=== PATIENT | male | born 1950 | race Caucasian/White ===

== ENCOUNTER 2017-10-03 08:44 | Outpatient (CLI) | payer MEDICARE, SELFPAY | END 2017-10-03 08:45 | PROVIDERS: PCP Family Medicine; Visit Provider Orthopaedic Surgery | DX: M75.121 Complete rotator cuff tear or rupture of right shoulder, not specified as traumatic (principal); Z01.818 Encounter for other preprocedural examination ==

== ENCOUNTER 2017-10-29 09:28 | Outpatient (CLI) | payer MEDICARE, SELFPAY ==
[2017-10-29 10:24] LABS: D-Dimer 1394 ng/mlFEU (<500)
== END 2017-10-29 09:48 ==
PROVIDERS: PCP Family Medicine; Visit Provider Family Medicine
DX: R60.0 Localized edema (principal)
CPT/HCPCS: 36415; 85379

== ENCOUNTER 2017-10-29 11:00 | Outpatient (CLI) | payer MEDICARE, SELFPAY ==
--- NOTE | 2017-10-29 11:09 | DI.US_ITS ---
SYMPTOM/DIAGNOSIS: LEG EDEMA, R60.0 RIGHT LOWER EXTREMITY ULTRASOUND: There is mild edema in the subcutaneous tissues of the right calf. Active right groin lymph node is noted which could indicate cellulitis. There is no evidence of deep venous thrombosis or superficial thrombosis. No Rodriguez's cyst or hematoma is seen. IMPRESSION: Calf edema. No evidence of DVT.
== END 2017-10-29 11:20 ==
PROVIDERS: PCP Family Medicine; Visit Provider Family Medicine
DX: R60.0 Localized edema (principal); R59.0 Localized enlarged lymph nodes
CPT/HCPCS: 36415; 85379; 93971

== ENCOUNTER 2017-11-07 10:16 | Outpatient (REF) | payer MEDICARE, SELFPAY | END 2017-11-07 10:36 | LOC: LBN 10:16 | PROVIDERS: PCP Family Medicine; Visit Provider Podiatrist | DX: L97.519 Non-pressure chronic ulcer of other part of right foot with unspecified severity (principal); Z47.89 Encounter for other orthopedic aftercare; M75.122 Complete rotator cuff tear or rupture of left shoulder, not specified as traumatic; M19.012 Primary osteoarthritis, left shoulder; M65.812 Other synovitis and tenosynovitis, left shoulder; M75.42 Impingement syndrome of left shoulder; E10.9 Type 1 diabetes mellitus without complications | CPT/HCPCS: 87077; 87070; 87205 ==

== ENCOUNTER 2017-11-10 17:35 | Inpatient (IN) | payer MEDICARE, SELFPAY ==
[2017-11-10 17:55] VITALS: BP 120/65; PULSE 84; RESP 16; TEMP 36.5; O2SAT 96
--- NOTE | 2017-11-10 18:18 | W.ED.GENAD ---
Discharge Plan Disposition Patient Disposition: [facility] INPATIENT Condition: Good Discharge Details Chief Complaint: Cellulitis Clinical Impression: Diabetic foot infection Primary Care Provider: Lilli Packer V ED Provider: Chu Paris Home Meds and New Rx's Prescriptions: No Action metformin [Glucophage] 850 MG tablet 850 mg PO DAILY RF: 0 glipizide 5 MG tablet 10 mg PO DAILY RF: 0 gabapentin [Neurontin] 300 MG capsule 900 mg PO BID RF: 0 docusate sodium [Colace] 100 MG capsule 100 mg PO BID RF: 0 cyanocobalamin (vitamin B-12) 1,000 MCG/ML solution 1,000 mcg IJ DIRECTED RF: 0 ibuprofen 200 mg Capsule 2 tab PO PRN PRNRF: 0 acetaminophen [Tylenol Extra Strength] 500 mg Tablet 2 tab PO RF: 0 aspirin [Aspirin Low-Strength] 81 MG tablet,chewable 81 mg PO DAILY RF: 0 insulin detemir U-100 [Levemir U-100 Insulin] 100 UNIT/ML solution 50 unit SQ HS RF: 0 oxycodone 15 MG tablet 1 tab PO PRN PRNRF: 0 insulin regular human [Humulin R Regular U-100 Insuln] 100 UNIT/1 ML solution Sub-Q TID RF: 0 albuterol sulfate [ProAir HFA] 200 PUFF/INH HFA aerosol inhaler 2 puff Inhalation Q4H PRN PRNQty: 1 RF: 0 Medical Decision Making 66-year-old male presents with a right fourth toe progressive infection over 3-4 days time. Referred in by podiatry. He arrives afebrile,, interactive. Patient had IV access established, blood cultures obtained, referred for x-ray and vancomcin initiated. He will require admission. As he is referred in by podiatry, will not consult them tonight as they are anticipating admission to the hospitalist service. Lab Data Lab results reviewed: Yes I reviewed the patient's lab results. HPI General Mode of arrival: ambulatory. Date/Time Provider Initiated Documentation: 11/10/17 18:08. Limitations to Documentation: no limitations. Information obtained by: family. History of Present Illness 66 year old M presents to the emergency department with the chief complaint of Diabetic foot infection, described as moderate, and is localized to the right and lower extremity. Patient started experiencing this day(s) and it has been constant. No relieving factors improve symptom(s), No exacerbating factors reported . Patient notes no other symptoms.. HPI Narrative: Infected foot: 66-year-old male presents on referral from podiatry. He states that he has had 3-4 days of progressive swelling, erythema, foul-smelling discharge from his right fourth toe which is 1 of his 3 remaining toes. He was seen in the office on by Dr. guzman and after discussing the progression today he was referred in. He has not had a fever, has not vomited. Denies any traumatic injury to the foot Related Data Home Medications Medication Instructions Recorded Confirmed metformin [Glucophage] 850 mg PO DAILY 09/19/12 11/10/17 glipizide 10 mg PO DAILY 09/22/12 11/10/17 gabapentin [Neurontin] 900 mg PO BID 12/05/14 11/10/17 docusate sodium [Colace] 100 mg PO BID cap 06/18/16 11/10/17 aspirin [Aspirin Low-Strength] 81 mg PO DAILY 12/25/16 11/10/17 insulin detemir U-100 [Levemir 50 unit SQ HS 12/25/16 11/10/17 U-100 Insulin] insulin regular human [Humulin R unit SUB-Q TID 03/29/17 07/13/17 Regular U-100 Insuln] oxycodone 1 tab PO PRN PRN 03/29/17 11/10/17 albuterol sulfate [ProAir HFA] 2 puff INHALATION Q4H PRN PRN #1 07/13/17 11/10/17 inh cyanocobalamin (vitamin B-12) 1,000 mcg IJ DIRECTED 10/03/17 11/10/17 acetaminophen [Tylenol Extra 2 tab PO 11/10/17 Strength] ibuprofen 2 tab PO PRN PRN 11/10/17 11/10/17 Previous Rx's Medication Instructions Recorded docusate sodium [Colace] 100 mg PO BID cap 06/18/16 albuterol sulfate [ProAir HFA] 2 puff INHALATION Q4H PRN PRN #1 07/13/17 inh Allergies Allergy/AdvReac Type Severity Reaction Status Date / Time Penicillins Allergy Severe Anaphylaxsi Unverified 11/10/17 18:00 s simvastatin Allergy Severe faints Unverified 11/10/17 18:00 Sulfa (Sulfonamide Allergy Severe Hives Unverified 11/10/17 18:00 Antibiotics) sulfamethoxazole Allergy Severe Hives Unverified 11/10/17 18:00 [From Bactrim] trimethoprim [From Bactrim] Allergy Severe Hives Unverified 11/10/17 18:00 levofloxacin AdvReac Intermediate Nausea Unverified 11/10/17 18:00 General Stated Complaint: Cellulitis VIKRAM: 3 Review of Systems Review of Systems 8 systems reviewed and otherwise - [facility] Medical History Diabetes mellitus Hyperlipidemia Sleep apnea Social History Smoking/Tobacco Use Status: Current-Occasional Surgical History Amputation Appendectomy (06/11/16) Repair of inguinal hernia Rotator Cuff Repair Exam Narrative Exam Narrative: GEN: awake, alert, oriented 3. Pleasant, well groomed, interactive. HEAD: Normocephalic, atraumatic ENT: Mucous membranes moist, oropharynx unremarkable, External ear exam unremarkable EYES: PERRL, EOMI NECK: Full ROM, no PEDRO, no menigismus CHEST/RESP: Nontender, clear to auscultation bilateral, no wheeze/rhonchi/rales CARDIOVASCULAR: RRR, no murmur, rub hernandez. 2+ Rad pulse bilateral ABDOMEN: Soft, nontender, no mass. +Bowel sounds EXT: Full ROM, left below the knee amputation, right foot with partial toe amputations and 3 remaining toes. The toe and fourth position is erythematous and swollen with tenderness and warmth, there is ulceration to the distal and Neuro: Grossly normal neurologic exam, conversant, interactive. Psych: Speech fluent, thoughts congruent, affect normal Course Vital Signs Temperature 36.5 C 11/10/17 17:55 Pulse 84 11/10/17 17:55 Respiratory Rate 16 11/10/17 17:55 Blood Pressure 120/65 11/10/17 17:55 Pulse Oximetry 96 11/10/17 17:55 Temperature 36.5 C 11/10/17 17:55 Temperature Source Temporal Artery Scan 11/10/17 17:55 Pulse 84 11/10/17 17:55 Respiratory Rate 16 11/10/17 17:55 Respiratory Effort 11/10/17 17:58 Blood Pressure 120/65 09/23/18 17:55 Pulse Oximetry 96 11/10/17 17:55 Oxygen Delivery Method Room Air 11/10/17 17:55 Oxygen Flow Rate 0 11/10/17 17:55
--- NOTE | 2017-11-10 18:22 | ED.GENADUL_ITS ---
Discharge Plan Disposition Patient Disposition: [facility] INPATIENT Condition: Good Discharge Details Chief Complaint: Cellulitis Clinical Impression: Diabetic foot infection Primary Care Provider: Lilli Packer V ED Provider: Chu Paris Home Meds and New Rx's Prescriptions: No Action metformin [Glucophage] 850 MG tablet 850 mg PO DAILY RF: 0 glipizide 5 MG tablet 10 mg PO DAILY RF: 0 gabapentin [Neurontin] 300 MG capsule 900 mg PO BID RF: 0 docusate sodium [Colace] 100 MG capsule 100 mg PO BID RF: 0 cyanocobalamin (vitamin B-12) 1,000 MCG/ML solution 1,000 mcg IJ DIRECTED RF: 0 ibuprofen 200 mg Capsule 2 tab PO PRN PRNRF: 0 acetaminophen [Tylenol Extra Strength] 500 mg Tablet 2 tab PO RF: 0 aspirin [Aspirin Low-Strength] 81 MG tablet,chewable 81 mg PO DAILY RF: 0 insulin detemir U-100 [Levemir U-100 Insulin] 100 UNIT/ML solution 50 unit SQ HS RF: 0 oxycodone 15 MG tablet 1 tab PO PRN PRNRF: 0 insulin regular human [Humulin R Regular U-100 Insuln] 100 UNIT/1 ML solution Sub-Q TID RF: 0 albuterol sulfate [ProAir HFA] 200 PUFF/INH HFA aerosol inhaler 2 puff Inhalation Q4H PRN PRNQty: 1 RF: 0 Medical Decision Making 66-year-old male presents with a right fourth toe progressive infection over 3- 4 days time. Referred in by podiatry. He arrives afebrile,, interactive. Patient had IV access established, blood cultures obtained, referred for x-ray and vancomcin initiated. He will require admission. As he is referred in by podiatry, will not consult them tonight as they are anticipating admission to the hospitalist service. Lab Data Lab results reviewed: Yes I reviewed the patient's lab results. HPI General Mode of arrival: ambulatory . Date/Time Provider Initiated Documentation: 11/10/17 18:08 . Limitations to Documentation: no limitations . Information obtained by: family . History of Present Illness 66 year old M presents to the emergency department with the chief complaint of Diabetic foot infection, described as moderate, and is localized to the right and lower extremity. Patient started experiencing this day(s) and it has been constant. No relieving factors improve symptom(s), No exacerbating factors reported . Patient notes no other symptoms.. HPI Narrative: Infected foot: 66-year-old male presents on referral from podiatry. He states that he has had 3-4 days of progressive swelling, erythema, foul-smelling discharge from his right fourth toe which is 1 of his 3 remaining toes. He was seen in the office on by Dr. guzman and after discussing the progression today he was referred in. He has not had a fever, has not vomited. Denies any traumatic injury to the foot Related Data Home Medications Medication Instructions Recorded Confirmed metformin [Glucophage] 850 mg PO DAILY 09/19/12 11/10/17 glipizide 10 mg PO DAILY 09/22/12 11/10/17 gabapentin [Neurontin] 900 mg PO BID 12/05/14 11/10/17 docusate sodium [Colace] 100 mg PO BID cap 06/18/16 11/10/17 aspirin [Aspirin Low-Strength] 81 mg PO DAILY 12/25/16 11/10/17 insulin detemir U-100 [Levemir 50 unit SQ HS 12/25/16 11/10/17 U-100 Insulin] insulin regular human [Humulin R unit SUB-Q TID 03/29/17 07/13/17 Regular U-100 Insuln] oxycodone 1 tab PO PRN PRN 03/29/17 11/10/17 albuterol sulfate [ProAir HFA] 2 puff INHALATION Q4H PRN PRN #1 07/13/17 inh cyanocobalamin (vitamin B-12) 1,000 mcg IJ DIRECTED 10/03/17 11/10/17 acetaminophen [Tylenol Extra 2 tab PO 11/10/17 Strength] ibuprofen 2 tab PO PRN PRN 11/10/17 11/10/17 Previous Rx's Medication Instructions Recorded docusate sodium [Colace] 100 mg PO BID cap 06/18/16 albuterol sulfate [ProAir HFA] 2 puff INHALATION Q4H PRN PRN #1 07/13/17 inh Allergies Allergy/AdvReac Type Severity Reaction Status Date / Time Penicillins Allergy Severe Anaphylaxsi Unverified 11/10/17 18:00 s simvastatin Allergy Severe faints Unverified 11/10/17 18:00 Sulfa (Sulfonamide Allergy Severe Hives Unverified 11/10/17 18:00 Antibiotics) sulfamethoxazole Allergy Severe Hives Unverified 11/10/17 18:00 [From Bactrim] trimethoprim [From Bactrim] Allergy Severe Hives Unverified 11/10/17 18:00 levofloxacin AdvReac Intermediate Nausea Unverified 11/10/17 18:00 General Stated Complaint: Cellulitis VIKRAM: 3 Review of Systems Review of Systems 8 systems reviewed and otherwise - [facility] Medical History Diabetes mellitus Hyperlipidemia Sleep apnea Social History Smoking/Tobacco Use Status: Current-Occasional Surgical History Amputation Appendectomy (06/11/16) Repair of inguinal hernia Rotator Cuff Repair Exam Narrative Exam Narrative: GEN: awake, alert, oriented 3. Pleasant, well groomed, interactive. HEAD: Normocephalic, atraumatic ENT: Mucous membranes moist, oropharynx unremarkable, External ear exam unremarkable EYES: PERRL, EOMI NECK: Full ROM, no PEDRO, no menigismus CHEST/RESP: Nontender, clear to auscultation bilateral, no wheeze/rhonchi/rales CARDIOVASCULAR: RRR, no murmur, rub hernandez. 2+ Rad pulse bilateral ABDOMEN: Soft, nontender, no mass. +Bowel sounds EXT: Full ROM, left below the knee amputation, right foot with partial toe amputations and 3 remaining toes. The toe and fourth position is erythematous and swollen with tenderness and warmth, there is ulceration to the distal and Neuro: Grossly normal neurologic exam, conversant, interactive. Psych: Speech fluent, thoughts congruent, affect normal Course Vital Signs Temperature 36.5 C 11/10/17 17:55 Pulse 84 11/10/17 17:55 Respiratory Rate 16 11/10/17 17:55 Blood Pressure 120/65 11/10/17 17:55 Pulse Oximetry 96 11/10/17 17:55 Temperature 36.5 C 11/10/17 17:55 Temperature Source Temporal Artery Scan 11/10/17 17:55 Pulse 84 11/10/17 17:55 Respiratory Rate 16 11/10/17 17:55 Respiratory Effort 11/10/17 17:58 Blood Pressure 120/65 09/23/18 17:55 Pulse Oximetry 96 11/10/17 17:55 Oxygen Delivery Method Room Air 11/10/17 17:55 Oxygen Flow Rate 0 11/10/17 17:55
--- NOTE | 2017-11-10 18:22 | DI.RAD_ITS ---
SYMPTOM/DIAGNOSIS: RT 4TH TOE INFECTION RIGHT FOOT: Three views. Comparison is made with 11/01/16. There is again seen an amputation of the great toe. Since the prior examination, there has been an amputation of the right third toe. There are also post surgical changes involving the second metatarsal phalangeal joint. No acute fracture or dislocation is seen. No erosive or destructive changes are seen in the bones to suggest acute osteomyelitis. There is generalized soft tissue swelling about the forefoot. IMPRESSION: 1. No definite radiographic findings to suggest osteomyelitis. Follow up as clinically appropriate. 2. Post surgical changes of the right foot. 3. Generalized soft tissue swelling of the right foot.
[2017-11-10 19:08] LABS: Abs Immature Grans 0.03 k/cumm (0.0-0.09); Absolute Basophil Count 0.06 k/cumm (0.0-0.2); Absolute Eosinophil Count 0.47 k/cumm (0.0-0.7); Absolute Lymphocyte Count 2.71 k/cumm (1.2-3.4); Absolute Monocyte Count 0.57 k/cumm (0.11-0.7); Absolute Neutrophil Count 6.41 k/cumm (1.2-6.7); Basophils % 0.6; Eosinophils % 4.6; HCT 44.1 % (40.0-50.0); HGB 15.4 g/dL (13.5-17.5); Immature Grans % 0.3; Lymphocytes % 26.4; Mean Corp. HGB Concentration 34.9 g/dL (32.0-36.0); Mean Corpuscular Volume 88.9 fL (80-95); Mean Platelet Volume 10.7 fL (8.0-11.0); Monocytes % 5.6; Neutrophils % 62.5; Platelet Count 183 x1000/uL (130-400); RBC 4.96 m/cumm (4.50-6.00); RBC Distribution Width 13.4 % (11.8-14.1); White Blood Cell Count 10.25 k/cumm (4.4-10.8)
[2017-11-10 19:23] LABS: ALT 27 U/L (12-78); AST 16 U/L (15-37); Albumin 3.6 g/dL (3.4-5.0); Alkaline Phosphatase 84 U/L (46-116); Anion Gap 10.4 mmol/L (3-11); BUN 15 mg/dL (7-18); Bilirubin, Total 0.2 mg/dL (0.2-1.0); CO2 25.6 mmol/L (21.0-32.0); Calcium 8.8 mg/dL (8.5-10.1); Chloride 101 mmol/L (98-107); Glucose 264 mg/dL (70-100); Potassium 4.7 mmol/L (3.5-5.1); Sodium 137 mmol/L (136-145); Total Protein 7.5 g/dL (6.4-8.2)
[2017-11-10 19:28] LABS: CREATININE 1.07 mg/dL (0.70-1.30)
[2017-11-10] MEDS: VANCOMYCIN 1,000 MG in Normal Saline 250 ML 166.6666 MG IVPB (19:56)
[2017-11-10 20:28] VITALS: BP 141/68; PULSE 71; RESP 18; TEMP 36.7; O2SAT 98
--- NOTE | 2017-11-10 20:43 | DI.VRAD_ITS ---
EXAM: XR Right Foot Complete, 3 or more Views EXAM DATE/TIME: 11/10/2017 6:23 PM CLINICAL HISTORY: 66 years old, male; Signs and symptoms; Other: RT 4th toe infection; Prior surgery; Patient HX: R 4th toe infection TECHNIQUE: XR Right foot 3 or more views. COMPARISON: CR RIGHT FOOT COMPLETE 11/01/2016 7:21 PM FINDINGS/IMPRESSION: Bones/joints: Status post amputation of the first and third digits with postsurgical changes of the second metatarsophalangeal joint. No erosive changes of the bones are seen on this exam. There is a large calcaneal spur. No acute fracture or subluxation. Soft tissues: Marked soft tissue swelling is noted about the forefoot. Dictated and Authenticated by: Chris Narayanan MD. Ordering:JOSE WHEATLEY MD
--- NOTE | 2017-11-10 23:26 | HPE_ITS ---
Date of service: 11/10/17 Time of Service: 23:25 Assessment and Plan (1) Cellulitis of right toe: Start date: 11/10/17 Current visit: Yes Status: Acute There is been a progressive problem over the last several days with podiatry evaluating the patient during the week. It worsened today on the patient was out fishing and because of progression he was advised to come to the ED for evaluation and treatment of his cellulitis with IV antibiotics and have podiatry see him for probable amputation of right fourth toe which is not healing as an outpatient. Dr. Aguilar has been consulted to see the patient. He was started on IV vancomycin loading dose and maintenance dose. (2) Diabetes: Current visit: No Status: Chronic Patient states his hemoglobin A1c is above 7 should be better with his complication with diabetes including neuropathy and foot drop as well as amputations with recurrent infection. He states that his circulation has been evaluated is intact and not contributing to his recurrent ulcers. During this operation he will have glucometers with short acting insulin coverage continuing in his Levemir at night. (3) Peripheral neuropathy due to disorder of metabolism: Current visit: Yes Status: Chronic This is contributing to his current ulcerations expectations with trauma to his right foot. He also had increased peripheral edema recently which may have contributed to his cellulitis and ulcer of the tip of his toe. Continue gabapentin hospital stay, long-term better control of his diabetes would help. History of Present Illness Chief Complaint: Right fourth toe cellulitis with gangrene and uncontrolled diabetes Narrative: This is a 66-year-old gentleman who was sent in by his jailer/training officer for treatment of cellulitis over his toe which is worsening for possible amputation of his right fourth toe with previous multiple amputations for similar reasons. He has only 3 toes left on his right foot which has been swelling recently though the edema has decreased with elevating his foot. He has a previous amputation with BKA on the left. He is a diabetic poorly controlled. He was out fishing today and noted that his right fourth toe was changing colors along with being with the tip and this had progressed with home prompted to come to the hospital for IV therapy pending probable amputation of the fourth toe. Overall he has been doing well at home with his disabilities and has prostheses for his left BKA but also for his right foot drop. He does have decreased sensation over his lower extremities with his diabetes. Review of systems stable weight, increased edema of his right leg recently actually is down with elevation as stated, no other focal neurological complaints, no cardiovascular or respiratory complaints and no GI or complaints. Review of Systems Review of Systems As per HPI otherwise negative COUNT INCLUDES [facility] Family History Mother CAD (coronary artery disease) Medical History Diabetes mellitus Hyperlipidemia Sleep apnea Social History Smoking/Tobacco Use Status: Current-Occasional Surgical History Amputation Appendectomy (06/11/16) Repair of inguinal hernia Rotator Cuff Repair Meds Home Medications Medication Instructions Recorded Confirmed Type metformin [Glucophage] 850 mg PO DAILY 09/19/12 11/10/17 History glipizide 10 mg PO DAILY 09/22/12 11/10/17 History gabapentin [Neurontin] 900 mg PO BID 12/05/14 11/10/17 History docusate sodium [Colace] 100 mg PO BID cap 06/18/16 11/10/17 Rx aspirin [Aspirin Low-Strength] 81 mg PO DAILY 12/25/16 11/10/17 History insulin detemir U-100 [Levemir 50 unit SQ HS 12/25/16 11/10/17 History U-100 Insulin] insulin regular human [Humulin R unit SUB-Q TID 03/29/17 07/13/17 History Regular U-100 Insuln] oxycodone 2 tab PO PRN PRN 03/29/17 11/10/17 History albuterol sulfate [ProAir HFA] 2 puff INHALATION Q4H PRN PRN #1 07/13/17 Rx inh cyanocobalamin (vitamin B-12) 1,000 mcg IJ DIRECTED 10/03/17 11/10/17 History acetaminophen [Tylenol Extra 2 tab PO 11/10/17 History Strength] ibuprofen 2 tab PO PRN PRN 11/10/17 11/10/17 History melatonin 9 mg PO HS PRN 11/10/17 11/10/17 History Allergies Allergy/AdvReac Type Severity Reaction Status Date / Time Penicillins Allergy Severe Anaphylaxsi Unverified 11/10/17 18:00 s simvastatin Allergy Severe faints Unverified 11/10/17 18:00 Sulfa (Sulfonamide Allergy Severe Hives Unverified 11/10/17 18:00 Antibiotics) sulfamethoxazole Allergy Severe Hives Unverified 11/10/17 18:00 [From Bactrim] trimethoprim [From Bactrim] Allergy Severe Hives Unverified 11/10/17 18:00 levofloxacin AdvReac Intermediate Nausea Unverified 11/10/17 18:00 Exam Narrative Exam Narrative: General: Patient is muscular and moderately obese, and in no acute distress and alert and oriented ?3. HEENT: Normocephalic with eyes revealing pupils equal nitrite symmetrically and extraocular movements intact the sclera anicteric. Oropharynx clear with pink moist mucosa and good dentition. External ears are normal. Neck: Supple without JVD and no auscultated carotid bruits. Lungs: Clear to auscultation with bronchovesicular breath sounds diffusely, no rales or rhonchi and no increased inspiratory to expiratory phase ratio. Heart: Regular rate and rhythm with no appreciated murmurs or gallops. Back: Decreased range of motion with loss of lordotic curve of lumbar spine and tenderness over lumbar spine. No CVA tenderness. Abdomen: Obese and slightly protuberant, soft and nontender to palpation with no palpable hepatosplenomegaly. Bowel sounds positive in all quadrants. Genitalia and rectal exam: Deferred. Extremities: Left BKA with stump without swelling or lesions and good capillary refill, right leg with 3+ nonpitting edema over the leg and foot with many amputations of the toes of the right foot with only 3 toes remaining and the fourth toe having additional swelling and erythema with slight ecchymotic appearance and gangrenous ulcer at the tip of the toe. Neuro: Decreased sensation over lower extremities, no focal motor deficits with cranial nerves II through XII grossly intact. Skin: Skin changes of the right foot with fourth toe otherwise well tanned over sun exposed areas and no rashes. Good turgor. Psych: Normal memory and thought processes with normal affect. Patient is jovial. Results Labs : 11/10/17 19:00 11/10/17 19:00 Laboratory Results - last 24 hr 11/10/17 11/10/17 19:00 19:00 WBC 10.25 RBC 4.96 Hgb 15.4 Hct 44.1 MCV 88.9 MCH 31.0 MCHC 34.9 RDW 13.4 Plt Count 183 MPV 10.7 Immature Gran % 0.3 Neutrophils % 62.5 Lymphocytes % 26.4 Monocytes % 5.6 Eosinophils % 4.6 Basophils % 0.6 Absolute Neutrophils 6.41 Absolute Lymphocytes 2.71 Absolute Monocytes 0.57 Absolute Eosinophils 0.47 Absolute Basophils 0.06 Sodium 137 Potassium 4.7 Chloride 101 Carbon Dioxide 25.6 Anion Gap 10.4 BUN 15 Creatinine 1.07 Estimated GFR/1.73 m2 >= 60.00 Glucose 264 H Calcium 8.8 Total Bilirubin 0.2 AST 16 ALT 27 Alkaline Phosphatase 84 Total Protein 7.5 Albumin 3.6
[2017-11-10 23:34] VITALS: BP 122/67; PULSE 75; RESP 19; TEMP 36.8; O2SAT 98
[2017-11-11] MEDS: Melatonin 3 MG TAB 9 MG PO ×2 (00:11→21:03)
[2017-11-11] MEDS: oxyCODONE 15 MG TAB PO ×5 (00:11→21:00)
[2017-11-11] MEDS: Heparin 5,000 UNITS/ML VIAL 5000 UNITS SC ×3 (00:11→15:48)
[2017-11-11] MEDS: VANCOMYCIN 1,500 MG in Normal Saline 250 ML 166.6666 MG IVPB (01:01)
[2017-11-11 07:25] VITALS: O2SAT 97
[2017-11-11 07:39] VITALS: BP 102/79; PULSE 70; RESP 19; TEMP 36.8; O2SAT 97
--- NOTE | 2017-11-11 07:43 | PDOC.CMIN ---
- If Service Date Differs Date of service: 11/11/17 Time of Service: 07:44 Care Management Initial Assess REASON FOR HOSPITALIZATION:: Diabetic Foot infection (R 4th toe). PAST MEDICAL HISTORY/PAST SURGICAL HISTORY:: Diabetes, hyperlipidemia, sleep apnea, peripheral neuropathy, osteoarthritis, synovitis, tenosynovitis (L shoulder). Surgical hx: L BKA, appendectomy, inguinal hernia repair, rotator cuff repair. PREVIOUS FUNCTIONAL STATUS/SOCIAL/FAMILY SUPPORTS:: Suhail resides in his own home in [place] with his , Sol. They have no children. Suhail has a long history with diabetes and osteomyelitis and has had multiple toe ampuations in the past. Pt has a L BKA. Suhail reports that he is independent with his ADLs and has a prosthetic for his left leg. CURRENT FUNCTIONAL STATUS:: Suhail is lying in bed when CM visits this morning. He is engaged in conversation, makes good eye contact and is talkative. Suhail is in good spirits and reports that while his shoulder hurts (he had rotator cuff surgery in September) he is otherwise feeling fine and quite likes it here. He is scheduled at this time to go to the OR with Dr. Casey on 11/13 for ampuation of his right fourth toe. Suhail's , Sol, is scheduled for surgery at [facility] on 11/15 and he is worried about transportation when he is ready for discharge. Depending on his discharge date, Sol will be unavailable for transport. CM will look into transportation options and report back. Suhail mentioned that he was uncomfortable in the bed. CM advised that a recliner might be available and pt agreed that would be preferable to keep his shoulder stationary and his foot elevated. OLENA Curtis and SHARRI james. ADVANCE DIRECTIVES:: On file at [facility]. Has patient been provided with information about the portal?: Yes Did the patient sign up for the portal?: No CODE STATUS:: DNR/DNI INSURANCE COVERAGE / FINANCIAL ISSUES:: Medicare. CURRENT HOME/COMMUNITY SERVICES/EQUIPMENT:: No current home or community services. PRIMARY CARE PHYSICIAN:: Lilli Packer. POTENTIAL DISCHARGE NEEDS:: Follow up appointments with PCP and Dr. Casey. PATIENT/FAMILY EDUCATION NEEDS:: Discharge education, any limitations and follow up plan of care. Ask Me Three discussion. ANTICIPATED BARRIERS TO DISCHARGE:: No anticipated barriers to discharge other than transportation needs. CM will assist. TRANSPORTATION:: Suhail is unsure how he will transport at discharge and has asked about options. PLAN:: Suhail will discharge home when medically ready per MD. Anticipate pt will discharge with no services and follow up with his PCP and Dr. Casey. CM will continue to provide support to patient and care team regarding discharge planning.
--- NOTE | 2017-11-11 07:49 | INITIAL_ITS ---
- If Service Date Differs Date of service: 11/11/17 Time of Service: 07:44 Care Management Initial Assess REASON FOR HOSPITALIZATION:: Diabetic Foot infection (R 4th toe). PAST MEDICAL HISTORY/PAST SURGICAL HISTORY:: Diabetes, hyperlipidemia, sleep apnea, peripheral neuropathy, osteoarthritis, synovitis, tenosynovitis (L shoulder). Surgical hx: L BKA, appendectomy, inguinal hernia repair, rotator cuff repair. PREVIOUS FUNCTIONAL STATUS/SOCIAL/FAMILY SUPPORTS:: Suhail resides in his own home in [place] with his , Sol. They have no children. Suhail has a long history with diabetes and osteomyelitis and has had multiple toe ampuations in the past. Pt has a L BKA. Suhail reports that he is independent with his ADLs and has a prosthetic for his left leg. CURRENT FUNCTIONAL STATUS:: Suhail is lying in bed when CM visits this morning. He is engaged in conversation, makes good eye contact and is talkative. Suhail is in good spirits and reports that while his shoulder hurts (he had rotator cuff surgery in September) he is otherwise feeling fine and quite likes it here. He is scheduled at this time to go to the OR with Dr. Casey on 11/13 for ampuation of his right fourth toe. Suhail's , Sol, is scheduled for surgery at [facility] on 11/15 and he is worried about transportation when he is ready for discharge. Depending on his discharge date, Sol will be unavailable for transport. CM will look into transportation options and report back. Suhail mentioned that he was uncomfortable in the bed. CM advised that a recliner might be available and pt agreed that would be preferable to keep his shoulder stationary and his foot elevated. OLENA Curtis and SHARRI james. ADVANCE DIRECTIVES:: On file at [facility]. Has patient been provided with information about the portal?: Yes Did the patient sign up for the portal?: No CODE STATUS:: DNR/DNI INSURANCE COVERAGE / FINANCIAL ISSUES:: Medicare. CURRENT HOME/COMMUNITY SERVICES/EQUIPMENT:: No current home or community services. PRIMARY CARE PHYSICIAN:: Lilli Packer. POTENTIAL DISCHARGE NEEDS:: Follow up appointments with PCP and Dr. Casey. PATIENT/FAMILY EDUCATION NEEDS:: Discharge education, any limitations and follow up plan of care. Ask Me Three discussion. ANTICIPATED BARRIERS TO DISCHARGE:: No anticipated barriers to discharge other than transportation needs. CM will assist. TRANSPORTATION:: Suhail is unsure how he will transport at discharge and has asked about options. PLAN:: Suhail will discharge home when medically ready per MD. Anticipate pt will discharge with no services and follow up with his PCP and Dr. Casey. CM will continue to provide support to patient and care team regarding discharge planning.
[2017-11-11] MEDS: Gabapentin 300 MG CAP 900 MG PO ×2 (08:10→20:59)
[2017-11-11] MEDS: Docusate Sodium 100 MG CAP PO ×2 (08:10→21:00)
--- NOTE | 2017-11-11 08:10 | POCOE_ITS ---
Date of service: 11/11/17 Time of Service: 07:55 Assessment and Plan (1) Cellulitis of right toe: Start date: 11/11/17 Start time: 08:15 Current visit: Yes Status: Acute Assessment: Diabetic ulceration right fourth digit with cellulitis Plan: Cultures are obtained in the office on revealed group B streptococcus sensitive to penicillin. Suhail has reached an interesting point in his both dynamic as he is already had digits 1 and 3 amputated due to infections and now he is looking to have his right fourth toe surgically removed during this admission. Continues to traumatize the digits due to his neuropathy within his shoe gear as well as just bending his foot around when he is out of his shoes at home moving from his bed to bathroom etc. and as such I am recommending at this point that we remove all of the remaining toes in the next operative session Suhail is in agreement with this plan I discussed the case with Dr. Cantu, the acting hospitalist, and he will adjust the antibiotics accordingly for the active organ and he is in agreement with surgical intervention. This likely will occur on Saturday as I would like the foot to further settle down and the edema to resolve before proceeding. Thank you for the consultation. History of Present Illness Chief Complaint: ulcer with cellulitis right 4th toe Narrative: 66-year-old white male who had presented to the office last with a ulceration with localized erythema affecting the distal tip of the right fourth toe. He is neuropathic, is with foot drop to the right lower extremity and wears a AFO and extra-depth shoe. In spite of these measures he develop mechanically induced trauma to the right fourth toe which created an ulcer which has become infected. He was initially started on p.o. clindamycin 300 mg every 6 hours but I received a phone call on Saturday indicating had increased redness and swelling in his foot going up to his ankle and he was referred to the emergency department for evaluation and admission.. [facility] Family History Mother CAD (coronary artery disease) Medical History Diabetes mellitus Hyperlipidemia Sleep apnea Social History Smoking/Tobacco Use Status: Current-Occasional Surgical History Amputation Appendectomy (06/11/16) Repair of inguinal hernia Rotator Cuff Repair Exam Narrative Exam Narrative: Suhail is seen at bedside he is resting comfortably. He indicates that just being in bed overnight and receiving his antibiotics the redness and swelling has improved. He denies any fever, chills or feelings of malaise. Vascular exam: DP and PT pulses are palpable at the ankle although +1 edema is appreciated. The foot is warm to the touch his calf is soft to palpation no findings DVT. Dermatologic exam: In on the right lower extremity is grossly intact with the exception of the tip of the right fourth toe with an ulceration is appreciated which appears to probe to bone toenails on digits 2, 4 and 5 are opaque consistent with onychomycosis. Muscle skeletal muscle groups are 1 out of 4 for dorsiflexion of the right foot (chronic foot drop appreciated), digits 2 and 4 and 5 show transverse plane deviation, with the right fourth toe having a ulceration at the distal tip with localized necrosis. Sluggish capillary return to the fourth toe noted. Mechanically induced irritation noted along the plantar medial aspect of the right first metatarsal head. The skin is closed no active signs of infection. The remaining forefoot, midfoot and rear foot joints are otherwise benign. Neurologically he displays moderate diabetic peripheral neuropathy in the right foot. Results Labs : 11/10/17 19:00 11/10/17 19:00 Laboratory Results - last 24 hr 11/10/17 11/10/17 19:00 19:00 WBC 10.25 RBC 4.96 Hgb 15.4 Hct 44.1 MCV 88.9 MCH 31.0 MCHC 34.9 RDW 13.4 Plt Count 183 MPV 10.7 Immature Gran % 0.3 Neutrophils % 62.5 Lymphocytes % 26.4 Monocytes % 5.6 Eosinophils % 4.6 Basophils % 0.6 Absolute Neutrophils 6.41 Absolute Lymphocytes 2.71 Absolute Monocytes 0.57 Absolute Eosinophils 0.47 Absolute Basophils 0.06 Sodium 137 Potassium 4.7 Chloride 101 Carbon Dioxide 25.6 Anion Gap 10.4 BUN 15 Creatinine 1.07 Estimated GFR/1.73 m2 >= 60.00 Glucose 264 H Calcium 8.8 Total Bilirubin 0.2 AST 16 ALT 27 Alkaline Phosphatase 84 Total Protein 7.5 Albumin 3.6
[2017-11-11 08:12] LABS: HCT 42.5 % (40.0-50.0); HGB 14.5 g/dL (13.5-17.5); Mean Corp. HGB Concentration 34.1 g/dL (32.0-36.0); Mean Corpuscular Volume 90.8 fL (80-95); Mean Platelet Volume 10.9 fL (8.0-11.0); Platelet Count 174 x1000/uL (130-400); RBC 4.68 m/cumm (4.50-6.00); RBC Distribution Width 13.6 % (11.8-14.1); White Blood Cell Count 7.92 k/cumm (4.4-10.8)
[2017-11-11] MEDS: Normal Saline Flush 10 ML SYR IVP ×3 (08:18→21:02)
[2017-11-11 08:40] LABS: ALT 23 U/L (12-78); AST 14 U/L (15-37); Albumin 3.2 g/dL (3.4-5.0); Alkaline Phosphatase 63 U/L (46-116); Anion Gap 8.8 mmol/L (3-11); BUN 13 mg/dL (7-18); Bilirubin, Total 0.5 mg/dL (0.2-1.0); CO2 25.2 mmol/L (21.0-32.0); CREATININE 0.87 mg/dL (0.70-1.30); Calcium 8.5 mg/dL (8.5-10.1); Chloride 104 mmol/L (98-107); Glucose 133 mg/dL (70-100); Potassium 4.5 mmol/L (3.5-5.1); Sodium 138 mmol/L (136-145); Total Protein 6.9 g/dL (6.4-8.2)
[2017-11-11] MEDS: LEVOFLOXACIN 750 MG/150 ML BAG 150 MG IVPB (09:19)
--- NOTE | 2017-11-11 11:20 | PHARADMIT ---
Addendum entered by Alan Hernandez III 11/13/17 16:37: Pharmacy Note Subjective Went to OR for removal of emaining digits on right foot. Objective VS-OK Labs-WNL FSBS- 181 BG-208 Assessment On Levaquin 750mg IV q48H, Insulin adjusted (Detemir, Aspart) On Heparin SQ Plan Potiential discharge tomorrow. Original Note: Addendum entered by Smiley Gilmore 11/12/17 11:31: Pharmacy Note Subjective OR tomorrow for amputation of some toes Objective VS-okay labs okay BG-175 Assessment levofloxacin continues, no med changes Plan continue to watch VS, labs and for med changes Original Note: Admission Pharmacy Clinical Review DIABETIC FOOT INFECTION (scheduled for amputation of toes Saturday) Code Status DNR/DNI Current Weight Wgt- 121.1 kg Renally Cleared and Narrow Therapeutic Index Meds CrCl~ 97 mL/min Meds-OK QTc Value / Action Taken not available yet BP Control, Fever BP- 102/79 Tmax- 36.8C Electrolytes reviewed Na- 138 K+4.5 DVT Prophylaxis HEPARIN SQ Opiate Usage / Scheduled Bowel Regimen Ordered Yes Yes Plt/SCr for Heparin / Enoxaparin Plts- 174 SCr-0.87 INR for Warfarin na H/H stable, WBC/Bands H&H- 14.5/42.5 WBC- 7.92 Antibiotic appropriateness Levaquin Cultures and Sensitivities Blood-Pending Surgical ABX d/c within 24 hr na DM control / Insulin Dosing BG- 133 Insulin, Aspart, Detemir Heart Failure (Check EF%) (HUSSAIN's, B-Block, Diuretics) none IV to PO Switch No Home Meds Reviewed Yes Home Meds Not Ordered asa, B-12, Glipizide, Metformin, Ibuprofen Comments B-12 inj held (no schedule found at this time)
[2017-11-11 11:40] VITALS: BP 144/70; PULSE 68; RESP 18; TEMP 36.7; O2SAT 97
[2017-11-11] MEDS: Insulin Aspart 300 UNITS/3 ML PEN SC ×2 (11:45→16:48)
--- NOTE | 2017-11-11 14:09 | W.PM.PROGNOT ---
Date of service: 11/11/17 Time of Service: 14:10 Assessment and Plan (1) Cellulitis of right toe: Current visit: Yes Status: Acute Appearance of non-healing, infected, ulcer of the distal tip of right 4th digit. Failed outpatient Clindamycin. As per discussion with Podiatry, will initiate IV antibiotics, wait for localized inflammation to subside, and proceed with amputation of remaining digits on the right foot, likely on 11/13. Wound culture from 11/07 reviewed showing GBS, which the patient has a history of. Discontinue Vancomycin. Given patient's allergy to PCN will proceed with IV Levofloxacin. P (2) Diabetes: Current visit: Yes Status: Chronic Continue basal insulin and initiate on sliding scale coverage. Currently holding Glipizide and Metformin. Continue ADA diet and monitor Blood Sugars. (3) Hyperlipidemia: Current visit: Yes Status: Chronic Noted allergy to statin therapy with 'fainting' (4) Peripheral neuropathy: Current visit: Yes Status: Chronic Continue Gabapentin. Also on Oxycodone. (5) DVT prophylaxis: Current visit: No Status: Acute On heparin SC. Subjective Interval history since last seen: 66 year old man with a past history significant for DM, prior GBS Cellulitis with Osteomyelitis, and prior left sided below the knee and right lower extremity digit amputations, presents to [facility] emergency department with complaints of right foot cellulitis. Mr. Galeano has a prior history of amputation of 2 digits on his right foot due to non-healing, gangrenous digits. Hewas recently seen by Dr. Migel Aguilar for treatment of a right fourth toe infection. He was maintained on oral Clindamycin as an outpatient, but without improvement. He was sent in for initiation of IV antibitiotic therapy, and for likely amputation of his right fourth toe along with the other toes on the right foot. The plan currently is for initiation of IV antibiotics, followed by surgical debridement and amputation of the remaining digits later this week. Overnight Mr. Galeano was afebrile. No events reported. Exam Narrative Exam Narrative: General: Patient appears comfortable, sitting up in bed, AAOX3, NAD Neck: Supple CV: Regular, nontachycardic, S1S2, No rubs, murmurs, or gallops. Pulmonary: Clear to auscultation bilaterally, no crackles, wheezing, or rhonchi Abdomen: + Bowel Sounds, soft, nontender, nondistended. Obese in contour. Vascular: Right LE with a grossly edematous foot, with 1st and 3rd digits missing. Area of ulceration and necrosis noted at the distal tip of the 4th digit. No erythema, warmth, or cellulitic changes above the digit. LLE with noted BKA. Neurologic: CN II-XII grossly intact. No focal deficits. Psych: Normal mood and affect. Objective Objective Clinical Data: Abnormal lab results 11/10/17 11/11/17 11/11/17 Range/Units 19:00 07:50 07:50 Glucose 264 H 133 H D (70-100) mg/dL AST 14 L (15-37) U/L C-Reactive Protein 2.00 H (0.0-0.3) mg/dL Albumin 3.2 L (3.4-5.0) g/dL Vital Signs Temperature 36.7 C 11/11/17 11:40 Temperature Source Tympanic 11/11/17 11:40 Pulse 68 11/11/17 11:40 Pulse Rhythm Regular 11/11/17 08:10 Respiratory Rate 18 11/11/17 11:40 Respiratory Effort Non-Labored 11/11/17 08:10 Respiratory Depth Normal 11/11/17 08:10 Respiratory Pattern Normal 11/11/17 08:10 Blood Pressure 144/70 H 11/11/17 11:40 Pulse Oximetry 97 11/11/17 11:40 Oxygen Delivery Method Room Air 11/11/17 11:40 Oxygen Flow Rate 0 11/11/17 11:40 Pain Level 3 11/11/17 11:45 Intake & Output 11/10/17 11/11/17 11/11/17 23:59 11:59 23:59 Intake Total 250 / 250 1080 / 1080 250 / 250 Output Total 250 / 250 Balance 250 / 250 830 / 830 250 / 250 Weight 119.5 kg 121.1 kg Intake: IV 250 / 250 420 / 420 Oral 660 / 660 250 / 250 Output: Urine 250 / 250 Other: Urine Color Yellow Urine Appearance Clear Voiding Methods Toilet Laboratory Results WBC 7.92 k/cumm (4.4-10.8) 11/11/17 07:50 RBC 4.68 m/cumm (4.50-6.00) 11/11/17 07:50 Hgb 14.5 g/dL (13.5-17.5) 11/11/17 07:50 Hct 42.5 % (40.0-50.0) 11/11/17 07:50 MCV 90.8 fL (80-95) 11/11/17 07:50 MCH 31.0 pg (27.0-33.0) 11/11/17 07:50 MCHC 34.1 g/dL (32.0-36.0) 11/11/17 07:50 RDW 13.6 % (11.8-14.1) 11/11/17 07:50 Plt Count 174 x1000/uL (130-400) 11/11/17 07:50 MPV 10.9 fL (8.0-11.0) 11/11/17 07:50 Immature Gran % 0.3 11/10/17 19:00 Neutrophils % 62.5 11/10/17 19:00 Lymphocytes % 26.4 11/10/17 19:00 Monocytes % 5.6 11/10/17 19:00 Eosinophils % 4.6 11/10/17 19:00 Basophils % 0.6 11/10/17 19:00 Absolute Neutrophils 6.41 k/cumm (1.2-6.7) 11/10/17 19:00 Absolute Lymphocytes 2.71 k/cumm (1.2-3.4) 11/10/17 19:00 Absolute Monocytes 0.57 k/cumm (0.11-0.7) 11/10/17 19:00 Absolute Eosinophils 0.47 k/cumm (0.0-0.7) 11/10/17 19:00 Absolute Basophils 0.06 k/cumm (0.0-0.2) 11/10/17 19:00 Sodium 138 mmol/L (136-145) 11/11/17 07:50 Potassium 4.5 mmol/L (3.5-5.1) 11/11/17 07:50 Chloride 104 mmol/L (98-107) 11/11/17 07:50 Carbon Dioxide 25.2 mmol/L (21.0-32.0) 11/11/17 07:50 Anion Gap 8.8 mmol/L (3-11) 11/11/17 07:50 BUN 13 mg/dL (7-18) 11/11/17 07:50 Creatinine 0.87 mg/dL (0.70-1.30) 11/11/17 07:50 Estimated GFR/1.73 m2 >= 60.00 (mL/min/1.73m2) 11/11/17 07:50 Glucose 133 mg/dL (70-100) H D 11/11/17 07:50 Calcium 8.5 mg/dL (8.5-10.1) 11/11/17 07:50 Total Bilirubin 0.5 mg/dL (0.2-1.0) 11/11/17 07:50 AST 14 U/L (15-37) L 11/11/17 07:50 ALT 23 U/L (12-78) 11/11/17 07:50 Alkaline Phosphatase 63 U/L (46-116) 11/11/17 07:50 C-Reactive Protein 2.00 mg/dL (0.0-0.3) H 11/11/17 07:50 Total Protein 6.9 g/dL (6.4-8.2) 11/11/17 07:50 Albumin 3.2 g/dL (3.4-5.0) L 11/11/17 07:50
--- NOTE | 2017-11-11 14:39 | CHAPLAIN ---
Suhail had just awoken from napping when I entered the room. He was in his recliner and told me he didn't sleep well last night, so he was trying to sleep some today. He doesn't think that any family members will be in to visit. His is scheduled to have her tonsils out on Saturday (11[birth year]15) which is his birthday. We do interesting things to celebrate my birthday, he said. I explained my role and offered support.
[2017-11-11 15:31] VITALS: BP 124/68; PULSE 67; RESP 18; TEMP 36.9; O2SAT 97
[2017-11-12] VITALS (8 sets, daily range): BP systolic 103–138; BP diastolic 67–80; PULSE 65–77; RESP 16–70; TEMP 36.5–36.9; O2SAT 96–98
[2017-11-12] MEDS: Heparin 5,000 UNITS/ML VIAL 5000 UNITS SC ×2 (00:02→08:21)
[2017-11-12 07:48] LABS: Abs Immature Grans 0.02 k/cumm (0.0-0.09); Absolute Basophil Count 0.08 k/cumm (0.0-0.2); Absolute Eosinophil Count 0.46 k/cumm (0.0-0.7); Absolute Lymphocyte Count 2.33 k/cumm (1.2-3.4); Absolute Monocyte Count 0.53 k/cumm (0.11-0.7); Absolute Neutrophil Count 4.26 k/cumm (1.2-6.7); HCT 42.2 % (40.0-50.0); HGB 14.2 g/dL (13.5-17.5); Immature Grans % 0.3; Lymphocytes % 30.3; Mean Corp. HGB Concentration 33.6 g/dL (32.0-36.0); Mean Corpuscular Hemoglobin 30.5 pg (27.0-33.0); Mean Corpuscular Volume 90.6 fL (80-95); Mean Platelet Volume 10.7 fL (8.0-11.0); Monocytes % 6.9; Neutrophils % 55.5; Platelet Count 175 x1000/uL (130-400); RBC 4.66 m/cumm (4.50-6.00); RBC Distribution Width 13.3 % (11.8-14.1); White Blood Cell Count 7.68 k/cumm (4.4-10.8)
--- NOTE | 2017-11-12 07:50 | W.PM.PROGNOT ---
Assessment and Plan (1) Cellulitis of right toe: Start date: 11/12/17 Start time: 07:57 Current visit: Yes Status: Acute Assessment: diabetic ulcer right fourth toe with necrotic tip Plan: Is to remain on IV levofloxacin and will be scheduled to the OR tomorrow for amputation of the remaining toes right foot. Understands the permanency of the procedure. Risks and complications have been discussed including failure to thrive, persistent infection with wound dehiscence. All questions have been answered. Informed consent obtained Subjective Patient reports: no new complaints Exam Narrative Exam Narrative: Suhail is resting comfortably in bed. He has no complaints of pain in his right foot secondary to his diabetic neuropathy. He has had some discomfort with his left shoulder but he indicates this morning that it was feeling much better and he attributes this to his inactivity. His right foot there is significant reduction in edema, his calves are soft to palpation no findings of DVT. Right fourth toe remains edematous to the base of the proximal failure without erythema has reduced. The ulceration at the distal tip of the toe appears grayish and necrotic, but no active drainage is noted. The second toe is laterally rotated and dorsally subluxed and the fifth toe is medially rotated and dorsally subluxed as well. Objective Objective Clinical Data: Abnormal lab results 11/11/17 11/11/17 Range/Units 07:50 07:50 Glucose 133 H D (70-100) mg/dL AST 14 L (15-37) U/L C-Reactive Protein 2.00 H (0.0-0.3) mg/dL Albumin 3.2 L (3.4-5.0) g/dL Vital Signs Temperature 36.5 C 11/12/17 04:53 Temperature Source Tympanic 11/12/17 04:53 Pulse 70 11/12/17 04:53 Pulse Rhythm Regular 11/11/17 21:27 Respiratory Rate 70 H 11/12/17 04:53 Respiratory Effort 11/11/17 21:27 Respiratory Depth Normal 11/11/17 21:27 Respiratory Pattern Normal 11/11/17 08:10 Blood Pressure 112/71 11/12/17 04:53 Pulse Oximetry 97 11/12/17 04:53 Oxygen Delivery Method Room Air 11/12/17 04:53 Oxygen Flow Rate 0 11/12/17 04:53 Pain Level 4 11/11/17 21:00 Intake & Output 11/11/17 11/12/17 11/12/17 18:59 06:59 18:59 Intake Total 780 / 780 Balance 780 / 780 Intake: IV 170 / 170 Oral 610 / 610 Other: Urine Appearance Clear Voiding Methods Toilet Laboratory Results WBC 7.68 k/cumm (4.4-10.8) 11/12/17 07:30 RBC 4.66 m/cumm (4.50-6.00) 11/12/17 07:30 Hgb 14.2 g/dL (13.5-17.5) 11/12/17 07:30 Hct 42.2 % (40.0-50.0) 11/12/17 07:30 MCV 90.6 fL (80-95) 11/12/17 07:30 MCH 30.5 pg (27.0-33.0) 11/12/17 07:30 MCHC 33.6 g/dL (32.0-36.0) 11/12/17 07:30 RDW 13.3 % (11.8-14.1) 11/12/17 07:30 Plt Count 175 x1000/uL (130-400) 11/12/17 07:30 MPV 10.7 fL (8.0-11.0) 11/12/17 07:30 Immature Gran % 0.3 11/12/17 07:30 Neutrophils % 55.5 11/12/17 07:30 Lymphocytes % 30.3 11/12/17 07:30 Monocytes % 6.9 11/12/17 07:30 Eosinophils % 6.0 11/12/17 07:30 Basophils % 1.0 11/12/17 07:30 Absolute Neutrophils 4.26 k/cumm (1.2-6.7) 11/12/17 07:30 Absolute Lymphocytes 2.33 k/cumm (1.2-3.4) 11/12/17 07:30 Absolute Monocytes 0.53 k/cumm (0.11-0.7) 11/12/17 07:30 Absolute Eosinophils 0.46 k/cumm (0.0-0.7) 11/12/17 07:30 Absolute Basophils 0.08 k/cumm (0.0-0.2) 11/12/17 07:30 Sodium 138 mmol/L (136-145) 11/11/17 07:50 Potassium 4.5 mmol/L (3.5-5.1) 11/11/17 07:50 Chloride 104 mmol/L (98-107) 11/11/17 07:50 Carbon Dioxide 25.2 mmol/L (21.0-32.0) 11/11/17 07:50 Anion Gap 8.8 mmol/L (3-11) 11/11/17 07:50 BUN 13 mg/dL (7-18) 11/11/17 07:50 Creatinine 0.87 mg/dL (0.70-1.30) 11/11/17 07:50 Estimated GFR/1.73 m2 >= 60.00 (mL/min/1.73m2) 11/11/17 07:50 Glucose 133 mg/dL (70-100) H D 11/11/17 07:50 Calcium 8.5 mg/dL (8.5-10.1) 11/11/17 07:50 Total Bilirubin 0.5 mg/dL (0.2-1.0) 11/11/17 07:50 AST 14 U/L (15-37) L 11/11/17 07:50 ALT 23 U/L (12-78) 11/11/17 07:50 Alkaline Phosphatase 63 U/L (46-116) 11/11/17 07:50 C-Reactive Protein 2.00 mg/dL (0.0-0.3) H 11/11/17 07:50 Total Protein 6.9 g/dL (6.4-8.2) 11/11/17 07:50 Albumin 3.2 g/dL (3.4-5.0) L 11/11/17 07:50
[2017-11-12 07:56] LABS: Anion Gap 8.1 mmol/L (3-11); BUN 18 mg/dL (7-18); CO2 25.9 mmol/L (21.0-32.0); CREATININE 0.93 mg/dL (0.70-1.30); Chloride 102 mmol/L (98-107); Glucose 175 mg/dL (70-100); Potassium 4.6 mmol/L (3.5-5.1); Sodium 136 mmol/L (136-145)
[2017-11-12] MEDS: Insulin Aspart 300 UNITS/3 ML PEN SC ×3 (08:20→16:52)
[2017-11-12] MEDS: Docusate Sodium 100 MG CAP PO ×2 (08:22→19:45)
[2017-11-12] MEDS: Gabapentin 300 MG CAP 900 MG PO ×2 (08:22→19:45)
[2017-11-12] MEDS: Normal Saline Flush 10 ML SYR IVP ×2 (08:23→23:49)
[2017-11-12] MEDS: LEVOFLOXACIN 750 MG/150 ML BAG 150 MG IVPB (08:23)
--- NOTE | 2017-11-12 13:22 | PDOC.CMPRO ---
- If Service Date Differs Date of service: 11/12/17 Time of Service: 13:22 Care Management Progress Note S/O: Patient presented at interdisciplinary rounds. Suhail is lying in bed when CM visits this morning. He is engaged in conversation, makes good eye contact and is talkative. He reports that his shoulder continues to hurt (following surgery a month ago) but that he is having no pain or discomfort in his foot. The plan is for him to go to the OR 11/[address] Casey and Suhail reports that he is ok with the procedure and not concerned or upset about additional amputations. Suhail's is having surgery at [facility] on Saturday so he is unsure how he will transport at discharge. CM discussed options such as RCT which could potentially be arranged through the [place] [facility]. CM will fax a referral to [facility]. A: 66 year old male admitted with right diabetic foot infection. P: Suhail will discharge home when medically ready per MD. Anticipate patient will discharge with no services and follow up with his PCP. Suhail will transport via taxi or RCT?; TBD. CM will continue to offer support to patient and care team regarding discharge planning and disposition.
--- NOTE | 2017-11-12 13:35 | CMPROGNOTE_ITS ---
- If Service Date Differs Date of service: 11/12/17 Time of Service: 13:22 Care Management Progress Note S/O: Patient presented at interdisciplinary rounds. Suhail is lying in bed when CM visits this morning. He is engaged in conversation, makes good eye contact and is talkative. He reports that his shoulder continues to hurt ( following surgery a month ago) but that he is having no pain or discomfort in his foot. The plan is for him to go to the OR 11/[address] Casey and Suhail reports that he is ok with the procedure and not concerned or upset about additional amputations. Suhail's is having surgery at [facility] on Saturday so he is unsure how he will transport at discharge. CM discussed options such as RCT which could potentially be arranged through the [facility]. CM will fax a referral to [facility]. A: 66 year old male admitted with right diabetic foot infection. P: Suhail will discharge home when medically ready per MD. Anticipate patient will discharge with no services and follow up with his PCP. Suhail will transport via taxi or RCT?; TBD. CM will continue to offer support to patient and care team regarding discharge planning and disposition.
[2017-11-12] MEDS: oxyCODONE 15 MG TAB PO ×3 (14:31→23:50)
--- NOTE | 2017-11-12 16:01 | W.PM.PROGNOT ---
Date of service: 11/12/17 Time of Service: 16:02 Assessment and Plan (1) Cellulitis of right toe: Current visit: Yes Status: Acute Appearance of non-healing, infected, ulcer of the distal tip of right 4th digit. Failed outpatient Clindamycin. As per discussion with Podiatry, will continue IV antibiotics, wait for localized inflammation to subside, and proceed with amputation of remaining digits on the right foot, likely on 11/13. Wound culture from 11/07 reviewed showing GBS, which the patient has a history of. Discontinued Vancomycin. Given patient's allergy to PCN he is now IV Levofloxacin, total day #3 of antibiotic therapy. (2) Diabetes: Current visit: Yes Status: Chronic Continue basal insulin and continue on sliding scale coverage. Currently holding Glipizide and Metformin. Continue ADA diet and monitor Blood Sugars. (3) Hyperlipidemia: Current visit: Yes Status: Chronic Noted allergy to statin therapy with 'fainting' (4) Peripheral neuropathy: Current visit: Yes Status: Chronic Continue Gabapentin. Also on Oxycodone. (5) DVT prophylaxis: Current visit: No Status: Acute On heparin SC. Subjective Interval history since last seen: 66 year old man with a past history significant for DM, prior GBS Cellulitis with Osteomyelitis, and prior left sided below the knee and right lower extremity digit amputations, presents to [facility] emergency department with complaints of right foot cellulitis. Mr. Galeano has a prior history of amputation of 2 digits on his right foot due to non-healing, gangrenous digits. Hewas recently seen by Dr. Migel Aguilar for treatment of a right fourth toe infection. He was maintained on oral Clindamycin as an outpatient, but without improvement. He was sent in for initiation of IV antibitiotic therapy, and for likely amputation of his right fourth toe along with the other toes on the right foot. The plan currently is for continuation of IV antibiotics, followed by surgical debridement and amputation of the remaining digits likely tomorrow. Overnight Mr. Galeano was afebrile. He reports continued but improved LE Edema in the right leg. No events reported. Exam Narrative Exam Narrative: General: Patient appears comfortable, sitting up in bed, AAOX3, NAD Neck: Supple CV: Regular, nontachycardic, S1S2, No rubs, murmurs, or gallops. Pulmonary: Clear to auscultation bilaterally, no crackles, wheezing, or rhonchi Abdomen: + Bowel Sounds, soft, nontender, nondistended. Obese in contour. Vascular: Right LE with a edematous foot and leg below the knee - improved, with 1st and 3rd digits missing. Area of ulceration and necrosis noted at the distal tip of the 4th digit. No erythema, warmth, or cellulitic changes above the digit. LLE with noted BKA. Neurologic: CN II-XII grossly intact. No focal deficits. Psych: Normal mood and affect. Objective Objective Clinical Data: Abnormal lab results 11/12/17 Range/Units 07:30 Glucose 175 H (70-100) mg/dL Vital Signs Temperature 36.5 C 11/12/17 12:15 Temperature Source Tympanic 11/12/17 12:15 Pulse 77 11/12/17 12:15 Pulse Rhythm Regular 11/12/17 08:20 Respiratory Rate 19 11/12/17 12:15 Respiratory Effort Non-Labored 11/12/17 08:20 Respiratory Depth Normal 11/12/17 08:20 Respiratory Pattern Normal 11/12/17 08:20 Blood Pressure 138/74 11/12/17 12:15 Pulse Oximetry 96 11/12/17 12:15 Oxygen Delivery Method Room Air 11/12/17 12:15 Oxygen Flow Rate 0 11/12/17 12:15 Pain Level 2 11/12/17 14:31 Intake & Output 11/11/17 11/12/17 11/12/17 23:59 11:59 23:59 Intake Total 250 / 250 410 / 410 Balance 250 / 250 410 / 410 Weight 119 kg Intake: IV 170 / 170 Oral 250 / 250 240 / 240 Other: Comment Pt voiding in toilet independently. Voiding Methods Toilet Laboratory Results WBC 7.68 k/cumm (4.4-10.8) 11/12/17 07:30 RBC 4.66 m/cumm (4.50-6.00) 11/12/17 07:30 Hgb 14.2 g/dL (13.5-17.5) 11/12/17 07:30 Hct 42.2 % (40.0-50.0) 11/12/17 07:30 MCV 90.6 fL (80-95) 11/12/17 07:30 MCH 30.5 pg (27.0-33.0) 11/12/17 07:30 MCHC 33.6 g/dL (32.0-36.0) 11/12/17 07:30 RDW 13.3 % (11.8-14.1) 11/12/17 07:30 Plt Count 175 x1000/uL (130-400) 11/12/17 07:30 MPV 10.7 fL (8.0-11.0) 11/12/17 07:30 Immature Gran % 0.3 11/12/17 07:30 Neutrophils % 55.5 11/12/17 07:30 Lymphocytes % 30.3 11/12/17 07:30 Monocytes % 6.9 11/12/17 07:30 Eosinophils % 6.0 11/12/17 07:30 Basophils % 1.0 11/12/17 07:30 Absolute Neutrophils 4.26 k/cumm (1.2-6.7) 11/12/17 07:30 Absolute Lymphocytes 2.33 k/cumm (1.2-3.4) 11/12/17 07:30 Absolute Monocytes 0.53 k/cumm (0.11-0.7) 11/12/17 07:30 Absolute Eosinophils 0.46 k/cumm (0.0-0.7) 11/12/17 07:30 Absolute Basophils 0.08 k/cumm (0.0-0.2) 11/12/17 07:30 Sodium 136 mmol/L (136-145) 11/12/17 07:30 Potassium 4.6 mmol/L (3.5-5.1) 11/12/17 07:30 Chloride 102 mmol/L (98-107) 11/12/17 07:30 Carbon Dioxide 25.9 mmol/L (21.0-32.0) 11/12/17 07:30 Anion Gap 8.1 mmol/L (3-11) 11/12/17 07:30 BUN 18 mg/dL (7-18) 11/12/17 07:30 Creatinine 0.93 mg/dL (0.70-1.30) 11/12/17 07:30 Estimated GFR/1.73 m2 >= 60.00 (mL/min/1.73m2) 11/12/17 07:30 Glucose 175 mg/dL (70-100) H 11/12/17 07:30 Calcium 9.0 mg/dL (8.5-10.1) 11/12/17 07:30 Total Bilirubin 0.5 mg/dL (0.2-1.0) 11/11/17 07:50 AST 14 U/L (15-37) L 11/11/17 07:50 ALT 23 U/L (12-78) 11/11/17 07:50 Alkaline Phosphatase 63 U/L (46-116) 11/11/17 07:50 C-Reactive Protein 2.00 mg/dL (0.0-0.3) H 11/11/17 07:50 Total Protein 6.9 g/dL (6.4-8.2) 11/11/17 07:50 Albumin 3.2 g/dL (3.4-5.0) L 11/11/17 07:50 Vancomycin Trough Cancelled 11/12/17 17:00
[2017-11-12] MEDS: Polyethylene Glycol 3350 17 GM PACKET PO (19:45)
[2017-11-12] MEDS: Melatonin 3 MG TAB 9 MG PO (23:50)
[2017-11-13] VITALS (7 sets, daily range): BP systolic 116–145; BP diastolic 67–75; PULSE 66–78; RESP 18–20; TEMP 35.9–37.2; O2SAT 93–97
[2017-11-13] MEDS: Docusate Sodium 100 MG CAP PO ×2 (07:45→20:08)
[2017-11-13] MEDS: Gabapentin 300 MG CAP 900 MG PO ×2 (07:45→20:09)
[2017-11-13] MEDS: Normal Saline 500 ML 30 ML IVPB (07:45)
[2017-11-13] MEDS: Normal Saline Flush 10 ML SYR IVP (07:45)
[2017-11-13] MEDS: LEVOFLOXACIN 750 MG/150 ML BAG 150 MG IVPB (07:46)
[2017-11-13 07:55] LABS: Abs Immature Grans 0.01 k/cumm (0.0-0.09); Absolute Basophil Count 0.06 k/cumm (0.0-0.2); Absolute Eosinophil Count 0.42 k/cumm (0.0-0.7); Absolute Lymphocyte Count 1.86 k/cumm (1.2-3.4); Absolute Monocyte Count 0.47 k/cumm (0.11-0.7); Absolute Neutrophil Count 3.93 k/cumm (1.2-6.7); Basophils % 0.9; Eosinophils % 6.2; HCT 41.3 % (40.0-50.0); Immature Grans % 0.1; Lymphocytes % 27.6; Mean Corp. HGB Concentration 33.9 g/dL (32.0-36.0); Mean Corpuscular Hemoglobin 30.5 pg (27.0-33.0); Mean Platelet Volume 10.5 fL (8.0-11.0); Neutrophils % 58.2; Platelet Count 173 x1000/uL (130-400); RBC 4.59 m/cumm (4.50-6.00); RBC Distribution Width 13.1 % (11.8-14.1); White Blood Cell Count 6.75 k/cumm (4.4-10.8)
[2017-11-13 08:05] LABS: Anion Gap 8.1 mmol/L (3-11); BUN 21 mg/dL (7-18); CO2 26.9 mmol/L (21.0-32.0); CREATININE 0.95 mg/dL (0.70-1.30); Chloride 100 mmol/L (98-107); Glucose 208 mg/dL (70-100); Potassium 4.7 mmol/L (3.5-5.1); Sodium 135 mmol/L (136-145)
[2017-11-13] MEDS: Lactated Ringers 500 ML 50 ML IV (10:06)
[2017-11-13] MEDS: Bupivacaine 0.25% Pres-Free 30 ML VIAL (10:23)
[2017-11-13] MEDS: Lidocaine 1% Pres-Free 5 ML VIAL 10 ML (10:23)
--- NOTE | 2017-11-13 10:45 | AMP_PTH ---
PATIENT: Suhail Galeano LOC: U#:[id number] AGE/SX: 66/M ROOM: 205 RE11/10/[address]: Yandel Mireles : 1950 BED: A DIS: 11/14/2017 SPEC #: [id number] RECD: 11/13/17 13:01 STATUS: GLENDA REWayne #: [id number] DONNIE: 11/13/17 10:[address]: Prasad Bowling DEPT: Surgical Specimen RECD BY: Adrianna Carver ENTERED: 11/13/17 13:04 SP TYPE: Amputation OTHR DR: Lilli Packer Craig S Taylor, Richard G Tissues: 1 - AMPUTATION FINGERS/TOES(NOT TRAUMA) Procedures: GROSS AND MICRO LEVEL 4 DECALCIFICATION Comments: [id number]
[2017-11-13] MEDS: Insulin Aspart 300 UNITS/3 ML PEN SC ×2 (12:28→16:33)
--- NOTE | 2017-11-13 12:57 | PDOC.CMPRO ---
- If Service Date Differs Date of service: 11/13/17 Time of Service: 12:57 Care Management Progress Note S/O: Patient presented at interdisciplinary rounds. Suhail is lying in bed when CM visits this afternoon. He is engaged in conversation, makes good eye contact and is talkative. Suhail went to the OR with Dr. Casey this morning for amputation of the remaining toes on his right foot. He is resting comfortably in his bed, has a boot on his right foot, and reports that he is having no pain in the foot. Suhail reports that his , Sol, will likely not be having her surgery on but will still be unavailable for transporting Suhail at discharge. A: 66 year old male admitted with right diabetic foot infection. P: Suhail will discharge home when medically ready per MD. Anticipate patient will discharge with no services and follow up with his PCP. Suhail will transport via taxi or RCT?. CM faxed prior authorization to [facility] regarding Suhail's impending discharge and will follow up with [facility]. CM will continue to offer support to patient and care team regarding discharge planning and disposition.
--- NOTE | 2017-11-13 13:41 | CMPROGNOTE_ITS ---
- If Service Date Differs Date of service: 11/13/17 Time of Service: 12:57 Care Management Progress Note S/O: Patient presented at interdisciplinary rounds. Suhail is lying in bed when CM visits this afternoon. He is engaged in conversation, makes good eye contact and is talkative. Suhail went to the OR with Dr. Casey this morning for amputation of the remaining toes on his right foot. He is resting comfortably in his bed, has a boot on his right foot, and reports that he is having no pain in the foot. Suhail reports that his , Sol, will likely not be having her surgery on but will still be unavailable for transporting Suhail at discharge. A: 66 year old male admitted with right diabetic foot infection. P: Suhail will discharge home when medically ready per MD. Anticipate patient will discharge with no services and follow up with his PCP. Suhail will transport via taxi or RCT?. CM faxed prior authorization to [facility] regarding Suhail's impending discharge and will follow up with [facility]. CM will continue to offer support to patient and care team regarding discharge planning and disposition.
--- NOTE | 2017-11-13 15:30 | PGE_ITS ---
Date of service: 11/13/17 Time of Service: 15:25 Assessment and Plan (1) Cellulitis of right toe: Current visit: Yes Status: Acute Appearance of non-healing, infected, ulcer of the distal tip of right 4th digit. Failed outpatient Clindamycin. Underwent surgical debridement and amputation of remaining digits on the right foot. Wound culture from 11/07 reviewed showing GBS, which the patient has a history of. Discontinued Vancomycin. Given patient's allergy to PCN he is now IV Levofloxacin, total day #4 of antibiotic therapy. Will discuss with podiatry regarding total antibiotic course. For potential discharge tomorrow. (2) Diabetes: Current visit: Yes Status: Chronic Continue basal insulin and continue on sliding scale coverage. Currently holding Glipizide and Metformin. Continue ADA diet and monitor Blood Sugars. (3) Hyperlipidemia: Current visit: Yes Status: Chronic Noted allergy to statin therapy (4) Peripheral neuropathy: Current visit: Yes Status: Chronic Continue Gabapentin. Also on Oxycodone. (5) DVT prophylaxis: Current visit: No Status: Acute On heparin SC. Subjective Interval history since last seen: 66 year old man with a past history significant for DM, prior GBS Cellulitis with Osteomyelitis, and prior left sided below the knee and right lower extremity digit amputations, presents to [facility] emergency department with complaints of right foot cellulitis. Mr. Galeano has a prior history of amputation of 2 digits on his right foot due to non-healing, gangrenous digits. He was recently seen by Dr. Mgiel Aguilar for treatment of a right fourth toe infection. He was maintained on oral Clindamycin as an outpatient, but without improvement. He was sent in for initiation of IV antibitiotic therapy, and for likely amputation of his right fourth toe along with the other toes on the right foot. He underwent surgical debridement and amputation of the remaining digits today, and remains on IV antibiotics. Mr. Galeano continues to be afebrile. He reports continued left shoulder pain post rotator cuff tear repair approximately one month ago, and is requesting an ortho consultation to address his concerns. No events reported. Exam Narrative Exam Narrative: General: Patient appears comfortable, sitting up in bed, AAOX3, NAD Neck: Supple CV: Regular, nontachycardic, S1S2, No rubs, murmurs, or gallops. Pulmonary: Clear to auscultation bilaterally, no crackles, wheezing, or rhonchi Abdomen: + Bowel Sounds, soft, nontender, nondistended. Obese in contour. Vascular: Right LE with edema. LLE with noted BKA. Psych: Normal mood and affect. Objective Objective Clinical Data: Abnormal lab results 11/13/17 Range/Units 07:30 Sodium 135 L (136-145) mmol/L BUN 21 H (7-18) mg/dL Glucose 208 H (70-100) mg/dL Vital Signs Temperature 36.0 C L 11/13/17 12:30 Temperature Source Tympanic 11/13/17 12:30 Pulse 66 11/13/17 12:30 Pulse Rhythm Regular 11/13/17 07:30 Respiratory Rate 20 11/13/17 12:30 Respiratory Effort 11/13/17 07:30 Respiratory Depth Normal 11/13/17 07:30 Respiratory Pattern Normal 11/13/17 07:30 Blood Pressure 120/67 11/13/17 12:30 Pulse Oximetry 94 L 11/13/17 12:30 Oxygen Delivery Method Room Air 11/13/17 12:30 Oxygen Flow Rate 0 11/13/17 12:30 Pain Level 0 11/13/17 12:30 Intake & Output 11/12/17 11/13/17 11/13/17 23:59 11:59 23:59 Intake Total 480 / 480 560 / 560 Balance 480 / 480 560 / 560 Weight 118.6 kg Intake: IV 100 / 100 Oral 480 / 480 460 / 460 Other: Urine Appearance Clear Comment voids indep in toilet Voiding Methods Toilet Laboratory Results WBC 6.75 k/cumm (4.4-10.8) 11/13/17 07:30 RBC 4.59 m/cumm (4.50-6.00) 11/13/17 07:30 Hgb 14.0 g/dL (13.5-17.5) 11/13/17 07:30 Hct 41.3 % (40.0-50.0) 11/13/17 07:30 MCV 90.0 fL (80-95) 11/13/17 07:30 MCH 30.5 pg (27.0-33.0) 11/13/17 07:30 MCHC 33.9 g/dL (32.0-36.0) 11/13/17 07:30 RDW 13.1 % (11.8-14.1) 11/13/17 07:30 Plt Count 173 x1000/uL (130-400) 11/13/17 07:30 MPV 10.5 fL (8.0-11.0) 11/13/17 07:30 Immature Gran % 0.1 11/13/17 07:30 Neutrophils % 58.2 11/13/17 07:30 Lymphocytes % 27.6 11/13/17 07:30 Monocytes % 7.0 11/13/17 07:30 Eosinophils % 6.2 11/13/17 07:30 Basophils % 0.9 11/13/17 07:30 Absolute Neutrophils 3.93 k/cumm (1.2-6.7) 11/13/17 07:30 Absolute Lymphocytes 1.86 k/cumm (1.2-3.4) 11/13/17 07:30 Absolute Monocytes 0.47 k/cumm (0.11-0.7) 11/13/17 07:30 Absolute Eosinophils 0.42 k/cumm (0.0-0.7) 11/13/17 07:30 Absolute Basophils 0.06 k/cumm (0.0-0.2) 11/13/17 07:30 Sodium 135 mmol/L (136-145) L 11/13/17 07:30 Potassium 4.7 mmol/L (3.5-5.1) 11/13/17 07:30 Chloride 100 mmol/L (98-107) 11/13/17 07:30 Carbon Dioxide 26.9 mmol/L (21.0-32.0) 11/13/17 07:30 Anion Gap 8.1 mmol/L (3-11) 11/13/17 07:30 BUN 21 mg/dL (7-18) H 11/13/17 07:30 Creatinine 0.95 mg/dL (0.70-1.30) 11/13/17 07:30 Estimated GFR/1.73 m2 >= 60.00 (mL/min/1.73m2) 11/13/17 07:30 Glucose 208 mg/dL (70-100) H 11/13/17 07:30 Calcium 9.0 mg/dL (8.5-10.1) 11/13/17 07:30 Total Bilirubin 0.5 mg/dL (0.2-1.0) 11/11/17 07:50 AST 14 U/L (15-37) L 11/11/17 07:50 ALT 23 U/L (12-78) 11/11/17 07:50 Alkaline Phosphatase 63 U/L (46-116) 11/11/17 07:50 C-Reactive Protein 2.00 mg/dL (0.0-0.3) H 11/11/17 07:50 Total Protein 6.9 g/dL (6.4-8.2) 11/11/17 07:50 Albumin 3.2 g/dL (3.4-5.0) L 11/11/17 07:50 Vancomycin Trough Cancelled 11/12/17 17:00
--- NOTE | 2017-11-13 16:03 | ROE_ITS ---
DATE OF PROCEDURE: November 13, 2017 PREOPERATIVE DIAGNOSES: #1. Diabetic ulceration with chronic ulcer distal tip of the right fourth t oe. #2. Symptomatic hammertoes involving toes 2 and 5, all to the right foot. POSTOPERATIVE DIAGNOSES: Same. PROCEDURE: Amputation of digits 2, 4 and 5 right foot. SURGEON: Migel Aguilar D.P.M. ANESTHESIA: Monitored anesthesia care with local block of the second, fourth, and fifth rays utilizi ng 20 cc 50/50 mixture 1% lidocaine and 0.25% Marcaine plain. ANESTHESIA PROVIDER: Aniket Palmer CRNA OPERATIVE INDICATIONS: [id number]old white male with diabetes and peripheral neuropathy who has had previously amputations of his right great toe and right third toe, and has subsequently develope d an ulceration at the tip of the right fourth toe with necrotic changes, now being brought to the OR for removal of all remaining toes. Suhail understands the permanency of the procedure. He und erstands risks and complications pertaining to pain, scarring, infection, and wound dehiscence. He u nderstands the potential for revisional and more proximal procedures. Informed consent has been obta ined. No promises being made to the final outcome of surgery. REPORT OF OPERATION: Suhail is brought to the Operative Suite and placed in a supine position w here the right foot is prepped and draped in the usual sterile podiatric fashion. Anesthesia being o btained, the right foot was exsanguinated, and a well-padded ankle tourniquet was inflated to 250 mmH g. Please note, a time-out was performed. The patient was correctly identified, site and procedures identified, and allergies confirmed. Attention was now directed to the second two where two converging semi-elliptical incisions were plac ed at the base of the toe. The incision was deepened in controlled depth fashion with a #15 scalpel. The extensor and flexor tendons were identified and severed. The blade was then placed down to the dorsum of the proximal phalanx and brought to the metatarsophalangeal joint with the joint capsule t issue removed incised. This was then carried medially and laterally and plantarly and the second toe removed from the wound. Copious irrigation was performed. The deep layers were repair with simple interrupted suture of #3-0 Vicryl and then the skin was coapted with a combination of simple and vert ical mattress suture of #4-0 nylon. Good skin approximation was appreciated. Attention was now directed to the fourth and fifth toes. These toes were addressed through transvers e incisions both dorsal and plantar with apices being to the medial side of the fourth toe and the la teral side of the fifth toe. The dorsal incision with a #15 scalpel was incised with controlled dept h fashion. The extensor tendons were identified into the fourth toe and severed. Dissection was car ried down to the dorsum of the proximal phalanx. The #15 blade was then carried proximal to the meta tarsophalangeal joint where the joint capsule was incised. The dorsal, medial, and lateral joint cap gareth was opened. Attention was now directed to the fifth toe where the skin incision was carried laterally. Once agai n, the extensor tendons were identified and severed. The dorsal joint capsule was released as well a s the collaterals. Attention was not directed to the medial aspect of the fourth toe where the incision was carried plan tarly. The incision was carried plantar laterally, meeting up to the incision over the lateral aspec t of the fifth proximal phalanx. The plantar incision was deepened in controlled depth fashion. The flexor tendons were identified and they were severed. The scalpel was brought down to bone and greenberg ied proximally to release the plantar joint capsules simultaneously at the fourth MPJ, then fifth MPJ . At this time, digits four and five were removed from the operative field. Hemostasis was acquired as needed. Copious irrigation was performed. The deep layers were repaired with simple interrupted suture of #3-0 Vicryl. The skin was then coapt ed with retention suture of far-near near-far #3-0 nylon interspersed with simple interrupted suture of #4-0 nylon. The skin approximation was excellent, no undue stress, good apposition was appreciate d. The foot was dressed with Xeroform, gauze Fluff compression dressings. The tourniquet was releas ed at 31 minutes, vascularity returning into the foot without incident. A CamWalker was applied to t he right foot for stability and protection. He is to remain in-house for IV antibiotics and bedrest. cc: Lilli Packer M.D.
[2017-11-13] MEDS: oxyCODONE 15 MG TAB PO ×2 (16:20→20:08)
[2017-11-14] MEDS: Melatonin 3 MG TAB 9 MG PO (00:23)
[2017-11-14] MEDS: oxyCODONE 15 MG TAB PO ×2 (00:23→04:31)
[2017-11-14 07:10] VITALS: O2SAT 96
[2017-11-14 07:16] LABS: Abs Immature Grans 0.02 k/cumm (0.0-0.09); Absolute Basophil Count 0.07 k/cumm (0.0-0.2); Absolute Lymphocyte Count 2.41 k/cumm (1.2-3.4); Absolute Monocyte Count 0.61 k/cumm (0.11-0.7); Absolute Neutrophil Count 4.86 k/cumm (1.2-6.7); Basophils % 0.8; Eosinophils % 4.8; HCT 39.1 % (40.0-50.0); HGB 13.3 g/dL (13.5-17.5); Immature Grans % 0.2; Lymphocytes % 28.8; Mean Corpuscular Hemoglobin 30.8 pg (27.0-33.0); Mean Corpuscular Volume 90.5 fL (80-95); Mean Platelet Volume 10.9 fL (8.0-11.0); Monocytes % 7.3; Neutrophils % 58.1; Platelet Count 178 x1000/uL (130-400); RBC 4.32 m/cumm (4.50-6.00); RBC Distribution Width 13.1 % (11.8-14.1); White Blood Cell Count 8.37 k/cumm (4.4-10.8)
[2017-11-14 07:29] LABS: Anion Gap 8.1 mmol/L (3-11); BUN 19 mg/dL (7-18); CO2 26.9 mmol/L (21.0-32.0); CREATININE 0.97 mg/dL (0.70-1.30); Calcium 8.6 mg/dL (8.5-10.1); Chloride 100 mmol/L (98-107); Glucose 167 mg/dL (70-100); Potassium 4.4 mmol/L (3.5-5.1); Sodium 135 mmol/L (136-145)
[2017-11-14 07:45] VITALS: BP 122/71; PULSE 71; RESP 18; TEMP 37; O2SAT 96
--- NOTE | 2017-11-14 07:58 | W.PM.PROGNOT ---
Date of service: 11/14/17 Time of Service: 07:58 Subjective Patient reports: no new complaints and feels better Exam Narrative Exam Narrative: Suhail is doing well overall. He states that he slept pretty well. Objective: He is afebrile, BP 123/73, pulse 71, O2 sat at room air is 96%. Dressing change was performed to his right foot he had minimal bloody drainage on the dressings as expected. The incisions are well coapted. There is no erythema or active signs of infection the remaining exam of his right foot is grossly benign. Assessment: Postop day #1 uncomplicated Plan: Xeroform, gauze fluff compression dressings reapplied to his right foot. The dressings are to remain intact untouched until he returns to my office in 1 week. He is to remain in the Cam walker for all weightbearing activities. I discussed the case with Dr. Mireles we should be able to get Suhail discharge sometime today. Appreciate the hospitalist management and support. Objective Objective Clinical Data: Abnormal lab results 11/13/17 11/14/17 11/14/17 Range/Units 07:30 06:20 06:20 RBC 4.32 L (4.50-6.00) m/cumm Hgb 13.3 L (13.5-17.5) g/dL Hct 39.1 L (40.0-50.0) % Sodium 135 L 135 L (136-145) mmol/L BUN 21 H 19 H (7-18) mg/dL Glucose 208 H 167 H (70-100) mg/dL Vital Signs Temperature 37.2 C 11/13/17 23:56 Temperature Source Tympanic 11/13/17 23:56 Pulse 71 11/13/17 23:56 Pulse Rhythm Regular 11/13/17 20:50 Respiratory Rate 19 11/13/17 23:56 Respiratory Effort 11/13/17 20:50 Respiratory Depth Normal 11/13/17 20:50 Respiratory Pattern Normal 11/13/17 15:50 Blood Pressure 123/73 11/13/17 23:56 Pulse Oximetry 96 11/14/17 07:10 Oxygen Delivery Method Room Air 11/14/17 07:10 Oxygen Flow Rate 0 11/14/17 07:10 Pain Level 4 11/14/17 04:31 Intake & Output 0911/14/17 11/14/17 18:59 06:59 18:59 Intake Total 100 / 100 740 / 740 Output Total 1924 900 / 900 Balance -1825 / -1825 -160 / -160 Weight 120 kg Intake: IV 100 / 100 Oral 740 / 740 Output: Urine 1924 900 / 900 Other: Urine Color Yellow Urine Appearance Clear Clear Urine Odor None Normal Comment voids indep in toilet Voiding Methods Urinal Urinal Laboratory Results WBC 8.37 k/cumm (4.4-10.8) 11/14/17 06:20 RBC 4.32 m/cumm (4.50-6.00) L 11/14/17 06:20 Hgb 13.3 g/dL (13.5-17.5) L 11/14/17 06:20 Hct 39.1 % (40.0-50.0) L 11/14/17 06:20 MCV 90.5 fL (80-95) 11/14/17 06:20 MCH 30.8 pg (27.0-33.0) 11/14/17 06:20 MCHC 34.0 g/dL (32.0-36.0) 11/14/17 06:20 RDW 13.1 % (11.8-14.1) 11/14/17 06:20 Plt Count 178 x1000/uL (130-400) 11/14/17 06:20 MPV 10.9 fL (8.0-11.0) 11/14/17 06:20 Immature Gran % 0.2 11/14/17 06:20 Neutrophils % 58.1 11/14/17 06:20 Lymphocytes % 28.8 11/14/17 06:20 Monocytes % 7.3 11/14/17 06:20 Eosinophils % 4.8 11/14/17 06:20 Basophils % 0.8 11/14/17 06:20 Absolute Neutrophils 4.86 k/cumm (1.2-6.7) 11/14/17 06:20 Absolute Lymphocytes 2.41 k/cumm (1.2-3.4) 11/14/17 06:20 Absolute Monocytes 0.61 k/cumm (0.11-0.7) 11/14/17 06:20 Absolute Eosinophils 0.40 k/cumm (0.0-0.7) 11/14/17 06:20 Absolute Basophils 0.07 k/cumm (0.0-0.2) 11/14/17 06:20 Sodium 135 mmol/L (136-145) L 11/14/17 06:20 Potassium 4.4 mmol/L (3.5-5.1) 11/14/17 06:20 Chloride 100 mmol/L (98-107) 11/14/17 06:20 Carbon Dioxide 26.9 mmol/L (21.0-32.0) 11/14/17 06:20 Anion Gap 8.1 mmol/L (3-11) 11/14/17 06:20 BUN 19 mg/dL (7-18) H 11/14/17 06:20 Creatinine 0.97 mg/dL (0.70-1.30) 11/14/17 06:20 Estimated GFR/1.73 m2 >= 60.00 (mL/min/1.73m2) 11/14/17 06:20 Glucose 167 mg/dL (70-100) H 11/14/17 06:20 Calcium 8.6 mg/dL (8.5-10.1) 11/14/17 06:20 Total Bilirubin 0.5 mg/dL (0.2-1.0) 11/11/17 07:50 AST 14 U/L (15-37) L 11/11/17 07:50 ALT 23 U/L (12-78) 11/11/17 07:50 Alkaline Phosphatase 63 U/L (46-116) 11/11/17 07:50 C-Reactive Protein 2.00 mg/dL (0.0-0.3) H 11/11/17 07:50 Total Protein 6.9 g/dL (6.4-8.2) 11/11/17 07:50 Albumin 3.2 g/dL (3.4-5.0) L 11/11/17 07:50 Vancomycin Trough Cancelled 11/12/17 17:00
--- NOTE | 2017-11-14 08:24 | W.ORTHOCONSU ---
Assessment and Plan (1) Complete rotator cuff tear of left shoulder: Start date: 11/14/17 Start time: 07:45 Current visit: No Status: Resolved Resumption of neer exercises and night time icing along with ibuprofen combined with tylenol. Review of Systems Musculoskeletal Comments: S/p left massive rotator cuff repair approx 6-7 weeks ago. Still has some persistent pain at nighttime. Recent admission for osteomyelitis and subsequent amputations right forefoot. Patient was seen last week in office and strategies discussed for decreasing pain and increaseing randge of motion by performing Neer exercises with cane in supine position. Patient has not bveen able to do these because of his new onset foot problems, PFSH Family History Mother CAD (coronary artery disease) Medical History Diabetes mellitus Hyperlipidemia Sleep apnea Social History Smoking/Tobacco Use Status: Current-Occasional Surgical History Amputation Appendectomy (06/11/16) Repair of inguinal hernia Rotator Cuff Repair Exam Extrem Other: No signs of seeding his left shoulder from right foot infection. No signs of deltoid muscle detachment from acromion. Passive motion is onlyslightly restricted. No signs of adhesive capsullitis Results Labs : 11/14/17 06:20 11/14/17 06:20 Laboratory Results - last 24 hr 11/14/17 11/14/17 06:20 06:20 WBC 8.37 RBC 4.32 L Hgb 13.3 L Hct 39.1 L MCV 90.5 MCH 30.8 MCHC 34.0 RDW 13.1 Plt Count 178 MPV 10.9 Immature Gran % 0.2 Neutrophils % 58.1 Lymphocytes % 28.8 Monocytes % 7.3 Eosinophils % 4.8 Basophils % 0.8 Absolute Neutrophils 4.86 Absolute Lymphocytes 2.41 Absolute Monocytes 0.61 Absolute Eosinophils 0.40 Absolute Basophils 0.07 Sodium 135 L Potassium 4.4 Chloride 100 Carbon Dioxide 26.9 Anion Gap 8.1 BUN 19 H Creatinine 0.97 Estimated GFR/1.73 m2 >= 60.00 Glucose 167 H Calcium 8.6
[2017-11-14] MEDS: Insulin Aspart 300 UNITS/3 ML PEN SC (08:30)
[2017-11-14] MEDS: Normal Saline Flush 10 ML SYR IVP (09:13)
[2017-11-14] MEDS: Gabapentin 300 MG CAP 900 MG PO (09:13)
[2017-11-14] MEDS: Docusate Sodium 100 MG CAP PO (09:14)
--- NOTE | 2017-11-14 11:32 | DSE_ITS ---
Date of service: 11/14/17 Time of Service: 11:24 DS: Diagnosis Discharge Diagnosis (1) Cellulitis of right toe: Status: Acute (2) Diabetes: Status: Chronic Discharge Plan Disposition Patient Disposition: HOME Condition: Improving Discharge Details Reason For Visit: DIABETIC FOOT INFECTION Admit Date/Time: 11/10/17 18:31 Admit Provider: Chu Paris Attending Provider: Prasad Bowling Primary Care Provider: Lilli Packer V Hospital Course Hospital Course: CC: Right foot 4th digit non-healing ulcer, cellulitis. HPI: 66 year old man with a past history significant for DM, prior GBS Cellulitis with Osteomyelitis, and prior left sided below the knee and right lower extremity digit amputations, admitted from [facility] emergency department with evidence of a diabetic right foot cellulitis. Mr. Galeano has a prior history of amputation of 2 digits on his right foot due to non-healing, gangrenous digits. He was recently seen by Dr. Migel Aguilar for treatment of a right fourth toe infection. He was maintained on oral Clindamycin as an outpatient, but without improvement. He was sent in for initiation of IV antibitiotic therapy, and for amputation of his right fourth toe along with the other toes on the right foot. He underwent surgical debridement and amputation of the remaining digits on 11/13/2017 with good success. Recommendations by podiatry for discontinuation of antibiotics and discharge home. Mr. Galeano reports improvement in his symptoms overall. However, he does have persistent left shoulder pain - he had what was deemed a massive rotator cuff repair approximately 2 months ago, with persistent pain following the operation. Patient requested an ortho consultation regarding his ongoing pain. Hospital Course By Problem List: (1) Cellulitis of right toe: Appearance of a non-healing, infected ulcer of the distal tip of right 4th digit. Failed outpatient Clindamycin. Underwent surgical debridement and amputation of remaining digits on the right foot. Outpatient Wound culture from 11/07 reviewed showing GBS, which the patient has a history of. Discontinued Vancomycin, and given patient's allergy to PCN he was maintained on IV Levofloxacin, total day #5 of antibiotic therapy. Given source control with amputation and lack of any further appearance of infection, recommendations by podiatry for discontinuation of antibiotic therapy at discharge, with follow-up within 1-2 weeks arranged as an outpatient. (2) Diabetes: Patient was maintained on his basal insulin and continued on sliding scale coverage. His glizpizide and Metformin will be reinitiated at time of discharge.. (3) Hyperlipidemia: Noted allergy to statin therapy (4) Peripheral neuropathy: Continued on Gabapentin. Also on Oxycodone, especially given recent left shoulder pain following operative repair. Home Meds and New Rx's Prescriptions: Continue metformin [Glucophage] 850 MG tablet 850 mg PO DAILY RF: 0 glipizide 5 MG tablet 10 mg PO DAILY RF: 0 gabapentin [Neurontin] 300 MG capsule 900 mg PO BID RF: 0 docusate sodium [Colace] 100 MG capsule 100 mg PO BID RF: 0 cyanocobalamin (vitamin B-12) 1,000 MCG/ML solution 1,000 mcg IJ DIRECTED RF: 0 ibuprofen 200 mg Capsule 2 tab PO PRN PRNRF: 0 acetaminophen [Tylenol Extra Strength] 500 mg Tablet 2 tab PO RF: 0 melatonin 3 mg Tablet 9 mg PO HS PRNRF: 0 aspirin [Aspirin Low-Strength] 81 MG tablet,chewable 81 mg PO DAILY RF: 0 insulin detemir U-100 [Levemir U-100 Insulin] 100 UNIT/ML solution 50 unit SQ HS RF: 0 oxycodone 15 MG tablet 2 tab PO PRN PRNRF: 0 insulin regular human [Humulin R Regular U-100 Insuln] 100 UNIT/1 ML solution Sub-Q TID RF: 0 Discharge Instructions Additional Instructions: Please follow-up with Dr. Aguilar as scheduled. Also see your primary care physician within 2 weeks, and Dr. Jarrett as previously scheduled. Activity:: No strenuous activity Equipment/Supplies:: No Equipment Needed Discharge Orders Discharge Orders: Discharge Order (Routine); Ordered 11/14/17 Ordered By: Yandel Mireles Exam Narrative Exam Narrative: General: Patient appears comfortable, sitting up in bed, AAOX3, NAD Neck: Supple CV: Regular, nontachycardic, S1S2, No rubs, murmurs, or gallops. Pulmonary: Clear to auscultation bilaterally, no crackles, wheezing, or rhonchi Abdomen: + Bowel Sounds, soft, nontender, nondistended. Obese in contour. Vascular: Right LE with edema. LLE with noted BKA. Psych: Normal mood and affect. DS: Data Vitals/I&O Vitals and I&O: Vital Signs Temperature 37.0 C 11/14/17 07:45 Temperature Source Tympanic 11/14/17 07:45 Pulse 71 11/14/17 07:45 Pulse Rhythm Regular 11/13/17 20:50 Respiratory Rate 18 11/14/17 07:45 Respiratory Effort 11/13/17 20:50 Respiratory Depth Normal 11/13/17 20:50 Respiratory Pattern Normal 11/13/17 15:50 Blood Pressure 122/71 11/14/17 07:45 Pulse Oximetry 96 11/14/17 07:45 Oxygen Delivery Method Room Air 11/14/17 07:45 Oxygen Flow Rate 0 11/14/17 07:45 Pain Level 4 11/14/17 04:31 Intake & Output 11/13/17 11/13/17 11/14/17 11:59 23:59 11:59 Intake Total 710 / 710 240 / 240 740 / 740 Output Total 2275 / 2275 550 / 550 Balance 710 / 710 -2035 / -2035 190 / 190 Weight 118.6 kg 120 kg Intake: IV 250 / 250 0 / 0 Oral 460 / 460 240 / 240 740 / 740 Output: Urine 2275 / 2275 550 / 550 Other: Urine Color Yellow Yellow Urine Appearance Clear Clear Clear Urine Odor None Normal Comment voids indep in toilet Voiding Methods Toilet Urinal Urinal Completed studies during hospitalization [Text1]: EXAM: XR Right Foot Complete, 3 or more Views EXAM DATE/TIME: 11/10/2017 6:23 PM CLINICAL HISTORY: 66 years old, male; Signs and symptoms; Other: RT 4th toe infection; Prior surgery; Patient HX: R 4th toe infection TECHNIQUE: XR Right foot 3 or more views. COMPARISON: CR RIGHT FOOT COMPLETE 11/01/2016 7:21 PM FINDINGS/IMPRESSION: Bones/joints: Status post amputation of the first and third digits with postsurgical changes of the second metatarsophalangeal joint. No erosive changes of the bones are seen on this exam. There is a large calcaneal spur. No acute fracture or subluxation. Soft tissues: Marked soft tissue swelling is noted about the forefoot. Pending studies at discharge: WBC 8.37 k/cumm (4.4-10.8) 11/14/17 06:20 RBC 4.32 m/cumm (4.50-6.00) L 11/14/17 06:20 Hgb 13.3 g/dL (13.5-17.5) L 11/14/17 06:20 Hct 39.1 % (40.0-50.0) L 11/14/17 06:20 MCV 90.5 fL (80-95) 11/14/17 06:20 MCH 30.8 pg (27.0-33.0) 11/14/17 06:20 MCHC 34.0 g/dL (32.0-36.0) 11/14/17 06:20 RDW 13.1 % (11.8-14.1) 11/14/17 06:20 Plt Count 178 x1000/uL (130-400) 11/14/17 06:20 MPV 10.9 fL (8.0-11.0) 11/14/17 06:20 Immature Gran % 0.2 11/14/17 06:20 Neutrophils % 58.1 11/14/17 06:20 Lymphocytes % 28.8 11/14/17 06:20 Monocytes % 7.3 11/14/17 06:20 Eosinophils % 4.8 11/14/17 06:20 Basophils % 0.8 11/14/17 06:20 Absolute Neutrophils 4.86 k/cumm (1.2-6.7) 11/14/17 06:20 Absolute Lymphocytes 2.41 k/cumm (1.2-3.4) 11/14/17 06:20 Absolute Monocytes 0.61 k/cumm (0.11-0.7) 11/14/17 06:20 Absolute Eosinophils 0.40 k/cumm (0.0-0.7) 11/14/17 06:20 Absolute Basophils 0.07 k/cumm (0.0-0.2) 11/14/17 06:20 Sodium 135 mmol/L (136-145) L 11/14/17 06:20 Potassium 4.4 mmol/L (3.5-5.1) 11/14/17 06:20 Chloride 100 mmol/L (98-107) 11/14/17 06:20 Carbon Dioxide 26.9 mmol/L (21.0-32.0) 11/14/17 06:20 Anion Gap 8.1 mmol/L (3-11) 11/14/17 06:20 BUN 19 mg/dL (7-18) H 11/14/17 06:20 Creatinine 0.97 mg/dL (0.70-1.30) 11/14/17 06:20 Estimated GFR/1.73 m2 >= 60.00 (mL/min/1.73m2) 11/14/17 06:20 Glucose 167 mg/dL (70-100) H 11/14/17 06:20 Calcium 8.6 mg/dL (8.5-10.1) 11/14/17 06:20 Total Bilirubin 0.5 mg/dL (0.2-1.0) 11/11/17 07:50 AST 14 U/L (15-37) L 11/11/17 07:50 ALT 23 U/L (12-78) 11/11/17 07:50 Alkaline Phosphatase 63 U/L (46-116) 11/11/17 07:50 C-Reactive Protein 2.00 mg/dL (0.0-0.3) H 11/11/17 07:50 Total Protein 6.9 g/dL (6.4-8.2) 11/11/17 07:50 Albumin 3.2 g/dL (3.4-5.0) L 11/11/17 07:50 Vancomycin Trough Cancelled 11/12/17 17:00 Labs on day of discharge: Labs from last 24 hours 11/14/17 11/14/17 06:20 06:20 WBC 8.37 RBC 4.32 L Hgb 13.3 L Hct 39.1 L MCV 90.5 MCH 30.8 MCHC 34.0 RDW 13.1 Plt Count 178 MPV 10.9 Immature Gran % 0.2 Neutrophils % 58.1 Lymphocytes % 28.8 Monocytes % 7.3 Eosinophils % 4.8 Basophils % 0.8 Absolute Neutrophils 4.86 Absolute Lymphocytes 2.41 Absolute Monocytes 0.61 Absolute Eosinophils 0.40 Absolute Basophils 0.07 Sodium 135 L Potassium 4.4 Chloride 100 Carbon Dioxide 26.9 Anion Gap 8.1 BUN 19 H Creatinine 0.97 Estimated GFR/1.73 m2 >= 60.00 Glucose 167 H Calcium 8.6 Preliminary micro results at discharge 11/10/17 19:35 Blood Culture - Preliminary Blood NO GROWTH 72 HOURS 11/10/17 19:00 Blood Culture - Preliminary Blood NO GROWTH 72 HOURS
[2017-11-14 11:50] VITALS: BP 149/69; PULSE 82; RESP 18; TEMP 37.2; O2SAT 96
[2017-11-14] MEDS: LEVOFLOXACIN 750 MG/150 ML BAG 150 MG IVPB (11:51)
--- NOTE | 2017-11-14 13:31 | PDOC.CMDIS ---
- If Service Date Differs Date of service: 11/14/17 Time of Service: 13:31 LACE Index Scoring Tool - Questions: Length of Stay (in days): 4 - 6 Acuity (Admit via E.D.?): Yes Comorbidities: PVD, Diabetes w/o Complication E.D. Visits: 4 - Answers: Total Score: 13 Risk of Readmission: High Risk Care Management Discharge Reason for Hospitalization: Diabetic Foot infection (R 4th toe). Discharge Plan: Suhail, will be discharged home today he declines any home health services. He has been instructed on caring for the wound and will follow up with as directed. Suhail to be transported home by RCT coordinated by DEB[facility]. [facility] contacted [employer] they approved the ride through [employer] and [employer] funding. Patient/Family Education Needs: Discharged education, follow up plan of care, limitaitons. Ask me three discussion and self management. Services Needed at Discharge: Transportation
--- NOTE | 2017-11-14 14:07 | CMDISCH_ITS ---
- If Service Date Differs Date of service: 11/14/17 Time of Service: 13:31 LACE Index Scoring Tool - Questions: Length of Stay (in days): 4 - 6 Acuity (Admit via E.D.?): Yes Comorbidities: PVD, Diabetes w/o Complication E.D. Visits: 4 - Answers: Total Score: 13 Risk of Readmission: High Risk Care Management Discharge Reason for Hospitalization: Diabetic Foot infection (R 4th toe). Discharge Plan: Suhail, will be discharged home today he declines any home health services. He has been instructed on caring for the wound and will follow up with as directed. Suhail to be transported home by [facility] coordinated by [facility]. [facility] contacted [employer] they approved the ride through [employer] and [employer] funding. Patient/Family Education Needs: Discharged education, follow up plan of care, limitaitons. Ask me three discussion and self management. Services Needed at Discharge: Transportation
== END 2017-11-14 11:58 | disposition home or self-care (01) | DRG 618 ==
LOC: ER 18:37 → MS 21:17
PROVIDERS: Podiatrist; Admitting Provider Family Medicine; Emergency Provider Emergency Medicine; PCP Family Medicine; Visit Provider Internal Medicine
PROC: 0Y6R0Z0 Detachment at Right 2nd Toe, Complete, Open Approach (ICD-10-PCS; CPT 28820; principal; 2017-11-13 09:45)
DX: E11.628 Type 2 diabetes mellitus with other skin complications (principal); L03.031 Cellulitis of right toe; M20.41 Other hammer toe(s) (acquired), right foot; Z89.421 Acquired absence of other right toe(s); M25.512 Pain in left shoulder; Z79.4 Long term (current) use of insulin; E78.5 Hyperlipidemia, unspecified; E11.42 Type 2 diabetes mellitus with diabetic polyneuropathy; G47.33 Obstructive sleep apnea (adult) (pediatric); B95.1 Streptococcus, group B, as the cause of diseases classified elsewhere; Z89.411 Acquired absence of right great toe; M21.371 Foot drop, right foot; Z72.0 Tobacco use; Z88.0 Allergy status to penicillin; Z89.512 Acquired absence of left leg below knee; Z98.890 Other specified postprocedural states
CPT/HCPCS: 28820 ×3; 36415; 80048; 80053; 85027; 87040; 88300; 88305; 96365; 99223; 99232; 99233; 99239; 99285; NC; 73630; 80202; 85025; 86140; 88311; 99284; J1644; J1956; J3490

== ENCOUNTER → 2017-11-28 13:24 | Outpatient (BNVA) | payer MEDICARE, SELFPAY | PROVIDERS: PCP Family Medicine; Referring Provider Family Medicine; Visit Provider Orthopaedic Surgery | DX: Z47.89 Encounter for other orthopedic aftercare (principal); M75.42 Impingement syndrome of left shoulder ==

== ENCOUNTER → 2017-12-31 10:17 | Outpatient (BNVA) | payer MEDICARE, SELFPAY | PROVIDERS: PCP Family Medicine; Referring Provider Family Medicine; Visit Provider Orthopaedic Surgery | DX: Z47.89 Encounter for other orthopedic aftercare (principal); E10.9 Type 1 diabetes mellitus without complications; M75.122 Complete rotator cuff tear or rupture of left shoulder, not specified as traumatic ==

== ENCOUNTER → 2018-03-06 12:53 | Outpatient (BNVA) | payer MEDICARE, SELFPAY | PROVIDERS: PCP Family Medicine; Referring Provider Family Medicine; Visit Provider Orthopaedic Surgery | DX: M75.112 Incomplete rotator cuff tear or rupture of left shoulder, not specified as traumatic (principal); Z47.89 Encounter for other orthopedic aftercare; E11.40 Type 2 diabetes mellitus with diabetic neuropathy, unspecified; Z79.4 Long term (current) use of insulin | CPT/HCPCS: 20610; 99213; J1040 ==

== ENCOUNTER → 2018-04-28 13:36 | Outpatient (BNVA) | payer MEDICARE, SELFPAY | PROVIDERS: PCP Family Medicine; Referring Provider Family Medicine; Visit Provider Orthopaedic Surgery | DX: Z98.890 Other specified postprocedural states (principal); M75.112 Incomplete rotator cuff tear or rupture of left shoulder, not specified as traumatic; E11.40 Type 2 diabetes mellitus with diabetic neuropathy, unspecified; Z79.4 Long term (current) use of insulin | CPT/HCPCS: 99211; 99213 ==

== ENCOUNTER 2018-05-20 01:48 | Outpatient (CLI) | payer MEDICARE, SELFPAY ==
--- NOTE | 2018-05-20 11:12 | DI.RAD_ITS ---
SYMPTOMS/DIAGNOSIS: DYSPHAGIA, R13.10 PA AND LATERAL CHEST: The lungs are well expanded and free of infiltrate. There is no pleural effusion. The cardiovascular structures appear intact. SUMMARY: No evidence of acute cardiopulmonary disease. BARIUM SWALLOW: Fluoroscopy Time: 1 min 54 sec The study was carried out according to the usual protocol. The patient swallowed barium without difficulty. The jake and hypopharynx appear intact. There is no evidence of a diverticulum or stenosis. The distal esophagus and GE junction are well maintained. The patient swallowed a 13 mm barium tablet without difficulty. SUMMARY: Normal barium swallow.
[2018-05-20] MEDS: Barium Sulfate 60% W/V 355 ML BTL PO ×2 (11:16→11:17)
[2018-05-20] MEDS: Barium Sulfate 700 MG TAB PO (11:17)
== END 2018-05-20 02:08 ==
PROVIDERS: PCP Family Medicine; Visit Provider Family Medicine
DX: R13.10 Dysphagia, unspecified (principal)
CPT/HCPCS: 74220

== ENCOUNTER → 2018-05-30 09:09 | Outpatient (BNVA) | payer MEDICARE, SELFPAY | PROVIDERS: PCP Family Medicine; Referring Provider Family Medicine; Visit Provider Surgery | DX: R13.11 Dysphagia, oral phase (principal); E11.9 Type 2 diabetes mellitus without complications; Z79.4 Long term (current) use of insulin | CPT/HCPCS: 99213 ==

== ENCOUNTER 2018-06-09 09:04 | Day surgery (SDC) | payer MEDICARE, SELFPAY ==
--- NOTE | 2018-06-09 07:01 | W.PM.ENDDOP ---
Date of service: 06/09/18 Time of Service: 10:11 Endoscopy Report DATE OF PROCEDURE: 06/09/18 PRE-OP DIAGNOSIS: Dysphagia with pills POST-OP DIAGNOSIS: other (mild gastritis and esophagitis) PROCEDURE: EGD with biopsies SURGEON: Alejandra Blunt ANESTHESIA: other (General/ ASA 3/Prasad Kenny CRNA) ESTIMATED BLOOD LOSS: 3 PATHOLOGY: other (antrum bx and GE junction bx) COMPLICATIONS: None DISPOSITION: same day INDICATIONS: Mr. Galeano is a pleasant 67 year old male who was seen in the office for dysphagia to pills only. Risks, benefits and complications have been reviewed. Complications include but are not limited to bleeding, pain, perforation, sore throat, aspiration, and adverse reaction to the medications. Questions were entertained and answered to their satisfaction and they wished to proceed. No guarantees were given or implied. PROCEDURE START TIME: PROCEDURE END TIME: FINDINGS: Mild inflammation of the esophagus and antrum. Grossly normal vocal cords No masses Nothing to explain his dysphagia to pills PROCEDURE DESCRIPTION: After informed consent was obtained the patient was take to the procedure room and placed in a supine position. Monitors were applied and a time out was done. The patients name, date of , procedure type, allergies to medications and metal in their body was reviewed. A bite block was placed and the patient was sedated. Once sedated and comfortable the gastroscope was advanced through the oropharynx which was grossly normal into the esophagus. The vocal cords were noted to be growwly normal. No masses were noted in the oropharynx. The proximal and mid-esophagus were normal. In the distal esophagus there was mild esophagitis noted. The scope was advanced into the stomach and through the pylorus into the 3rd portion of the duodenum. The duodenum was noted to be normal. The scope was retracted back into the stomach and biopsies were done to rule out H. pylori. There were no ulcers. There was very mild inflammation of the antrum. The scope was retro-flexed. The cardia and fundus were noted to be normal. There was no hiatal hernia noted. The scope was retracted back into the esophagus and biopsies were done of the GE junction to rule out Waller's. The Z line was regular. The GE junction was at 40 cm. The scope was removed and the patient was woken up and taken back to [facility] in stable condition. Follow up: with PCP. The findings do not explain his chocking on pills. recommend a speech consult and possibly ENT consults. Will start on Ranitidine 150 mg daily for the mild inflammation noted.
--- NOTE | 2018-06-09 07:03 | W.PM.DSUDISC ---
Discharge Plan Disposition Patient Disposition: HOME Condition: Good Discharge Details Reason For Visit: Dysphagia Attending Provider: Alejandra Blunt Primary Care Provider: Lilli Packer V Home Meds and New Rx's Prescriptions: New ranitidine HCl 150 mg capsule 150 mg PO DAILY Qty: 30 RF: 3 Continued Novolog PenFill U-100 Insulin 100 unit/mL cartridge 55 sliding sc SC DAILY RF: 0 lisinopril 2.5 mg tablet 2.5 mg PO DAILY RF: 0 clindamycin HCl 300 mg capsule 300 mg PO QID RF: 0 metformin [Glucophage] 850 MG tablet 850 mg PO DAILY RF: 0 glipizide 5 MG tablet 10 mg PO DAILY RF: 0 gabapentin [Neurontin] 300 MG capsule 900 mg PO BID RF: 0 docusate sodium [Colace] 100 MG capsule 100 mg PO BID RF: 0 cyanocobalamin (vitamin B-12) 1,000 MCG/ML solution 1,000 mcg IJ DIRECTED RF: 0 melatonin 3 mg Tablet 9 mg PO HS PRNRF: 0 aspirin [Aspirin Low-Strength] 81 MG tablet,chewable 81 mg PO DAILY RF: 0 Levemir U-100 Insulin 100 UNIT/ML solution 65 unit SQ HS RF: 0 oxycodone 15 MG tablet 2 tab PO PRN PRNRF: 0 diphenhydramine-acetaminophen [Acetaminophen PM] 25-500 mg Tablet 1 tab PO QHS PRNRF: 0 Discharge Instructions Instructions: Upper Endoscopy (DC) Additional Instructions: Findings: mild inflammation of the stomach. Nothing to explain your symptoms Follow up: with your Primary care physician in 1 to 2 weeks. Recommend Speech referral as well as ENT referral. Please call if you develop: fevers >101.5 Nausea or Vomiting Abdominal pain that is not transient DAY SURGERY UNIT POST COLONOSCOPY INSTRUCTIONS 1. Because there will be medication in your system for the next 24 hours, you may feel a little sleepy. Your coordination will be affected. Therefore: a. Do not drive or operate dangerous equipment for 24 hours. b. Do not drink alcohol beverages for 24 hours (not even beer). c. Plan to go home and rest for the day. 2. Generally there are no restrictions on your activity after a day or so has gone by, but you may feel a bit fatigued for a few days. 3 After you arrive home you may have a light meal and return to a normal diet as you can tolerate it without feeling sick to your stomach. 4. After surgery, you may feel pain or discomfort. This should be only transient, but if it persists please contact your doctor. 5. If there are any questions regarding the findings of your procedure, please feel free to contact your doctor. 6. If you are unable to contact your doctor with a problem, contact the hospital at [phone]. 7. Continue all your regular medications unless directed otherwise. I understand the above instructions and have no questions. Signature of Patient or Responsible Adult Escort Date/Time Name of Responsible Adult Escort Signature of Nurse Date/Time Referrals: Lilli Packer MD [Primary Care Provider] - (1-2 weeks) Activity:: Activity as Tolerated Diet:: As Tolerated Discharge Orders Discharge Orders: Discharge Order (Routine); Ordered 06/09/18 Ordered By: Alejandra Blunt DS: Diagnosis Discharge Diagnosis (1) H/O esophagogastroduodenoscopy: Status: Chronic
[2018-06-09 09:12] VITALS: BP 121/67; PULSE 71; RESP 17; TEMP 36.4; O2SAT 97
[2018-06-09] MEDS: Lactated Ringers 1,000 ML 80 ML IV (09:55)
[2018-06-09] MEDS: Lidocaine 2% Viscous 15 ML CUP (10:05)
--- NOTE | 2018-06-09 10:17 | STOM_PTH ---
PATIENT: Suhail Galeano LOC: [facility] U#:[id number] AGE/SX: 67/M ROOM: RE06/09/[address]: Alejandra Blunt MD : 1950 BED: DIS: 06/09/2018 SPEC #: [id number] RECD: 06/09/18 12:47 STATUS: GLENDA REQ #: [id number] DONNIE: 06/09/18 10:[address]: Alejandra Blunt DEPT: Surgical Specimen RECD BY: Adrianna Carver ENTERED: 06/09/18 12:47 SP TYPE: STOMACH OTHR DR: Lilli Packer V Tissues: 1 - STOMACH BIOPSY 2 - ESOPHAGUS BIOPSY Procedures: GROSS AND MICRO LEVEL 4 Comments: [id number]
[2018-06-09 10:54] VITALS: BP 125/68; PULSE 65; RESP 16; TEMP 36.5; O2SAT 94
== END 2018-06-09 12:25 | disposition home or self-care (01) ==
LOC: SUR 09:05
PROVIDERS: PCP Family Medicine; Visit Provider Surgery
PROC: 0DJ68ZZ Inspection of Stomach, Via Natural or Artificial Opening Endoscopic (ICD-10-PCS; CPT 43235; principal; 2018-06-09 09:45)
DX: R13.10 Dysphagia, unspecified (principal); K20.9 Esophagitis, unspecified; K29.70 Gastritis, unspecified, without bleeding; E11.9 Type 2 diabetes mellitus without complications; Z79.4 Long term (current) use of insulin; Z79.84 Long term (current) use of oral hypoglycemic drugs
CPT/HCPCS: 43239; 88305

== ENCOUNTER 2018-07-28 11:39 | Outpatient (REF) | payer MEDICARE, SELFPAY ==
[2018-07-28 21:51] LABS: ALT 53 U/L (12-78); AST 32 U/L (15-37); Albumin 3.6 g/dL (3.4-5.0); Alkaline Phosphatase 69 U/L (46-116); Anion Gap 9.7 mmol/L (3-11); BUN 17 mg/dL (7-18); Bilirubin, Total 0.3 mg/dL (0.2-1.0); CO2 25.3 mmol/L (21.0-32.0); CREATININE 1.07 mg/dL (0.70-1.30); Calcium 8.9 mg/dL (8.5-10.1); Calculated LDL 99; Chloride 105 mmol/L (98-107); Cholesterol 177 mg/dL (50-200); Glucose 205 mg/dL (70-100); HDL Cholesterol 31 mg/dL (40-60); Potassium 4.7 mmol/L (3.5-5.1); Sodium 140 mmol/L (136-145); Triglyceride 239 mg/dL (30-150)
== END 2018-07-28 11:59 ==
LOC: NCHCN 11:39
PROVIDERS: PCP Family Medicine; Visit Provider Physician Assistant Medical
DX: E11.8 Type 2 diabetes mellitus with unspecified complications (principal)
CPT/HCPCS: 80053; 80061; 83721

== ENCOUNTER 2019-03-13 13:11 | Outpatient (REF) | payer MEDICARE, SELFPAY ==
[2019-03-13 19:31] LABS: Abs Immature Grans 0.01 k/cumm (0.0-0.09); Absolute Basophil Count 0.11 k/cumm (0.0-0.2); Absolute Eosinophil Count 0.33 k/cumm (0.0-0.7); Absolute Lymphocyte Count 2.16 k/cumm (1.2-3.4); Absolute Monocyte Count 0.37 k/cumm (0.11-0.7); Basophils % 1.8; Eosinophils % 5.5; HCT 45.3 % (40.0-50.0); HGB 15.1 g/dL (13.5-17.5); Immature Grans % 0.2 %; Lymphocytes % 36.1; Mean Corp. HGB Concentration 33.3 g/dL (32.0-36.0); Mean Corpuscular Hemoglobin 30.1 pg (27.0-33.0); Mean Corpuscular Volume 90.2 fL (80-95); Monocytes % 6.2; Neutrophils % 50.2; Platelet Count 224 x1000/uL (130-400); RBC 5.02 m/cumm (4.50-6.00); RBC Distribution Width 12.9 % (11.8-14.1); White Blood Cell Count 5.98 k/cumm (4.4-10.8)
[2019-03-13 19:44] LABS: ALT 48 U/L (16-63); AST 26 U/L (15-37); Albumin 3.7 g/dL (3.4-5.0); Alkaline Phosphatase 74 U/L (46-116); Anion Gap 9.3 mmol/L (3-11); BUN 15 mg/dL (7-18); Bilirubin, Total 0.3 mg/dL (0.2-1.0); C-Reactive Protein 0.28 mg/dL (0.0-0.3); CO2 25.7 mmol/L (21.0-32.0); CREATININE 0.98 mg/dL (0.70-1.30); Calcium 8.9 mg/dL (8.5-10.1); Chloride 106 mmol/L (98-107); Glucose 145 mg/dL (74-106); Potassium 4.8 mmol/L (3.5-5.1); Sodium 141 mmol/L (136-145); TSH (W/Ref FT4) 0.66 uIU/mL (0.36-3.74); Total Protein 6.9 g/dL (6.4-8.2)
[2019-03-13 20:01] LABS: Hemoglobin A1C 7.7 % (3.8-5.6)
[2019-03-13 20:41] LABS: ESR 14 mm/hr (1-20)
== END 2019-03-13 13:31 ==
LOC: NCHCN 13:11
PROVIDERS: PCP Family Medicine; Visit Provider Family Medicine
DX: E11.8 Type 2 diabetes mellitus with unspecified complications (principal); R10.9 Unspecified abdominal pain
CPT/HCPCS: 80053; 85652; 83036; 84443; 85025; 86140

== ENCOUNTER 2019-04-17 04:08 | Outpatient (CLI) | payer MEDICARE, SELFPAY ==
[2019-04-17] MEDS: Omnipaque 350 MG/ML 100 ML BTL IJ (08:43)
[2019-04-17] MEDS: Normal Saline - Diluent 50 ML VIAL IV (08:56)
--- NOTE | 2019-04-17 08:56 | DI.CT_ITS ---
EXAM: CT ABDOMEN PELVIS W CLINICAL HISTORY: ABD PAIN, R10.9 TECHNIQUE: Post IV and oral contrast. COMPARISON: ABD PELVIS WO CONTRAST from 06/14/2016 FINDINGS: The lung bases are clear. The liver shows mild diffuse fatty infiltration. The gallbladder, pancr eas, adrenals and kidneys are unremarkable. A lesion measuring water density is again seen in the sp silverio, likely a cyst. The aorta shows atherosclerotic change but no evidence of an aneurysm. There i s no bowel dilatation or inflammatory change. There are few diverticula in the lower descending and sigmoid colon. The bladder and prostate are unremarkable. There is mild stranding around the left i nguinal canal likely related to prior inguinal hernia repair. Some small amount of fat is seen in th e right inguinal canal. Is no free air or free fluid. There are degenerative disc changes and degen erative facet changes in the lumbar spine. IMPRESSION: No acute abnormality.
== END 2019-04-17 04:28 ==
PROVIDERS: PCP Family Medicine; Visit Provider Family Medicine
DX: R10.9 Unspecified abdominal pain (principal); K76.0 Fatty (change of) liver, not elsewhere classified; D73.4 Cyst of spleen
CPT/HCPCS: 74177; J3490

== ENCOUNTER → 2019-04-29 13:43 | Outpatient (BNVA) | payer MEDICARE, SELFPAY | PROVIDERS: PCP Family Medicine; Referring Provider Family Medicine; Visit Provider Surgery | DX: R10.30 Lower abdominal pain, unspecified (principal); E11.9 Type 2 diabetes mellitus without complications; Z79.4 Long term (current) use of insulin | CPT/HCPCS: 99202; 99213 ==

== ENCOUNTER 2019-05-06 07:19 | Outpatient (CLI) | payer MEDICARE, SELFPAY ==
--- NOTE | 2019-05-06 08:00 | DI.US_ITS ---
EXAM: US ABDOMEN CLINICAL HISTORY: fatty food intolerance,r10.9, abd pain TECHNIQUE: Ultrasound performed using standard protocol. COMPARISON: ABD PELVIS WITH CONTRAST from 06/11/2016 ABD PELVIS WO CONTRAST from 06/14/2016 US upper extremity venous RT from 10/29/2017 FINDINGS: Abdominal ultrasound was performed according to the usual protocol. The liver is incompletely visual ized and shows increased echogenicity and decrease through transmission raising the possibility of he patic steatosis. No focal hepatic lesion seen. There is a cystic lesion of the spleen measuring up to about 4.4 cm in diameter with somewhat irregular borders, this has been present on prior CT examin ations including May 2016 and has increased slightly in size in comparison with previous examinatio ns. Maximum diameter on prior CT of May 2016 was about 3.6 cm. Pancreas appears intact as visualized. No evidence of cholelithiasis or biliary dilatation. Negativ e sonographic Leon sign noted. The kidneys are normal in size and shape and there is no evidence of a renal mass, hydronephrosis, or nephrolithiasis. Abdominal aorta and IVC are of normal diameter. IMPRESSION: No evidence of acute intra-abdominal process. No evidence of cholelithiasis. DATA REPOSITORY:
== END 2019-05-06 07:39 ==
PROVIDERS: PCP Family Medicine; Visit Provider Surgery
DX: R10.9 Unspecified abdominal pain (principal); K76.89 Other specified diseases of liver; D73.4 Cyst of spleen
CPT/HCPCS: 76700

== ENCOUNTER 2019-06-30 09:39 | Outpatient (CLI) | payer MEDICARE, SELFPAY ==
--- NOTE | 2019-06-30 10:00 | DI.RAD_ITS ---
EXAM: XR SHOULDER LT COMPLETE 2+V CLINICAL HISTORY: evaluation of shoulder pain TECHNIQUE: COMPARISON: No exams were available for comparison FINDINGS: Two views were obtained. There is a suture anchor in the greater tuberosity of the humerus. Mild pr esumed postsurgical deformity of the greater tuberosity noted. Cartilaginous joint space of the rhiannon ohumeral joint appears fairly well maintained. Mild inferior acromial spurring noted. No other sign ificant abnormality. IMPRESSION: No acute abnormality.
== END 2019-06-30 09:59 ==
PROVIDERS: PCP Family Medicine; Referring Provider Family Medicine; Visit Provider Student in an Organized Health Care Education/Training Program
DX: M25.512 Pain in left shoulder (principal); Z98.890 Other specified postprocedural states; S46.211D Strain of muscle, fascia and tendon of other parts of biceps, right arm, subsequent encounter; X58.XXXD Exposure to other specified factors, subsequent encounter; M75.112 Incomplete rotator cuff tear or rupture of left shoulder, not specified as traumatic; M75.42 Impingement syndrome of left shoulder; M65.812 Other synovitis and tenosynovitis, left shoulder
CPT/HCPCS: 20610; 99213; 73030; J1030

== ENCOUNTER 2019-08-24 14:43 | Emergency (ER) | payer MEDICARE, MEDICAID, SELFPAY ==
[2019-08-24 14:50] VITALS: BP 125/84; PULSE 87; RESP 20; TEMP 37.2; O2SAT 97
--- NOTE | 2019-08-24 15:37 | ED.GENADUL_ITS ---
Discharge Plan Disposition Patient Disposition: HOME Condition: Improving Discharge Details Chief Complaint: Cellulitis Clinical Impression: Abscess Primary Care Provider: Lilli Packer V ED Provider: Barbara Anand Home Meds and New Rx's Prescriptions: New doxycycline hyclate 100 mg capsule 100 mg PO BID Qty: 14 RF: 0 Continued lisinopril 2.5 mg tablet 2.5 mg PO DAILY RF: 0 Levemir U-100 Insulin 100 unit/mL solution 70 unit subcut HS RF: 0 insulin aspart U-100 [Novolog PenFill U-100 Insulin] 100 unit/mL cartridge 40 unit SC DAILY RF: 0 diphenhydramine-acetaminophen [Tylenol PM Extra Strength] 25-500 mg tablet 2 - 3 tab PO QHS PRNRF: 0 glipizide 5 MG tablet 10 mg PO DAILY RF: 0 gabapentin [Neurontin] 300 MG capsule 900 mg PO BID RF: 0 docusate sodium [Colace] 100 MG capsule 100 mg PO BID RF: 0 cyanocobalamin (vitamin B-12) 1,000 MCG/ML solution 1,000 mcg IJ DIRECTED RF: 0 melatonin 3 mg Tablet 10 mg PO HS PRNRF: 0 aspirin [Aspirin Low-Strength] 81 MG tablet,chewable 81 mg PO DAILY RF: 0 oxycodone 15 MG tablet 2 tab PO PRN PRNRF: 0 diphenhydramine-acetaminophen [Acetaminophen PM] 25-500 mg Tablet 1 tab PO QHS PRNRF: 0 Discharge Instructions Instructions: Abscess (ED) Additional Instructions: Please take the antibiotics as prescribed. Next dose will be due tomorrow morning. You may stop the clindamycin. You may use Tylenol and/or ibuprofen as needed for discomfort. Please keep your appointment on Saturday with general surgery. If you develop fever/chills, spreading of the redness, shortness of breath, difficulty breathing, pain with inspiration or other new/worsening symptoms to seek care urgently once again. Referrals: Alejandra Blunt MD [ [facility] STAFF PHYSICIAN] - Discharge Data Discharge Date/Time-TO BE ENTERED AT DEPARTURE: 08/24/19 18:15 Medical Decision Making <Chantal Ruelas - Last Filed: 08/27/19 16:20> 60-year-old male presents the ED with chief complaint of right-sided anterior chest wall abscess which he has had for approximately 2 weeks. Patient states last night got worse and started draining. He denies any fever or chills, nausea or vomiting. He has been taking 300 mg clindamycin 4 times a day for the last week which is an old prescription that he had for a different abscess on his left lower extremity. 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 He is a diabetic. He reports pain moderate to severe. There is noted a proximately 4 cm x 4 cm abscess with purulent drainage noted. Denies any axillary lymphadenopathy. Alert and oriented x4 upon initial exam. At this time work-up ordered including CBC, CMP, lactate, and blood cultures x2 to rule out systemic involvement. At this time labs are pending. Care is to be handed off to oncoming provider GARFIELD Davies pending labs and I&D of abscess. This text was generated using Kiko[employer] system, please disregard any oddities of phrase or misspellings. This text was generated using [employer] system, please disregard any oddities of phrase or misspellings. <GARFIELD Helton - Last Filed: 08/25/19 16:22> Care transition myself from Joanne Hendricks NP, with CMP pending. Please see her note exam for initial presentation history. In brief, patient reports that approximate 1 week ago he noted what he thought was an ingrown hair on the right side of his chest wall near the right axilla. States that he was able to express some purulent discharge from this area. He was seen by his primary care who that point did not feel that antibiotics was warranted. He states over the past few days however the area has expanded in size and last night began to drain spontaneously. States he was feeling feverish last night but no documented fever. Denies any shortness of breath. No pain with deep inspiration. Patient does have diabetes and states that his glucose is been in the 200s over the past few days. 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 Patient does have allergies to penicillin and Bactrim. He had been giving himself clindamycin from a leftover prescription. Denies any GI upset. No chest pain. No shortness of breath. On exam, patient is resting comfortably. He appears nontoxic. Vital signs are stable. Labs are reviewed. No leukocytosis. Lactate is elevated slightly 1.7. Glucose is 190. CMP otherwise unremarkable. Patient has a well-circumscribed abscess on the right side of his chest wall near the axilla proximately 7 cm x 5 cm. There are small punctate openings centrally that do have a small amount of discharge. This is mobile. No chest wall pain. No crepitus. Lung sounds are clear. No pain with inspiration. No lymphadenopathy. Patient discussed risks benefits as well as expected procedural steps of incision and drainage. We will begin him on doxycycline. Patient is allergic to penicillin and Bactrim. See procedure note. Procedure was perform using standard sterile technique. LET was initially used to anesthetize the skin. This was then followed up with 1% lidocaine plain. Patient tolerated this well. A 2.5 cm incision was made. Copious amounts of thick purulent, foul-smelling discharge was expressed. Loculations were broken up. I was able to flush out purulent discharge. Sterile saline was used for this. Packing was then applied. Sterile dressing was applied over this. A wound culture was sent. Patient already has an appointment with general surgery for evaluation of this area on Saturday. I advised that he keep this appointment. At that time, they may discuss the packing further. We did discuss how to change the dressings if this needs to occur. Patient had no complications associated with the procedure. Patient was given strict return precautions. All his questions or concerns were addressed and he is in agreement this plan. Patient was given his first dose of doxycycline while here. We did discuss limiting sun exposure while on this medication. HPI <Chantal Ruelas - Last Filed: 08/27/19 16:20> General Mode of arrival: ambulatory . Date/Time Provider Initiated Documentation: 08/24/19 15:15 . Limitations to Documentation: no limitations . Information obtained by: patient . HPI Narrative: 60-year-old male presents the ED with chief complaint of right-sided anterior chest wall abscess which he has had for approximately 2 weeks. Patient states last night got worse and started draining. He denies any fever or chills, nausea or vomiting. He has been t aking 300 mg clindamycin 4 times a day for the last week which is an old prescription that he had for a different abscess on his left lower extremity. 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 He is a diabetic. He reports pain moderate to severe. There is noted a proximately 4 cm x 4 cm abscess with purulent drainage noted. Denies any axillary lymphadenopathy. Alert and oriented x4 upon initial exam. Related Data Home Medications Medication Instructions Recorded Confirmed glipizide 10 mg PO DAILY 09/22/12 08/24/19 gabapentin [Neurontin] 900 mg PO BID 12/05/14 08/24/19 docusate sodium [Colace] 100 mg PO BID cap 06/18/16 08/24/19 aspirin [Aspirin Low-Strength] 81 mg PO DAILY 12/25/16 08/24/19 oxycodone 2 tab PO PRN PRN 03/29/17 08/24/19 cyanocobalamin (vitamin B-12) 1,000 mcg IJ DIRECTED 10/03/17 08/24/19 melatonin 10 mg PO HS PRN 11/10/17 08/24/19 lisinopril 2.5 mg tablet 2.5 mg PO DAILY 05/23/18 08/24/19 diphenhydramine-acetaminophen 1 tab PO QHS PRN 06/04/18 08/24/19 [Acetaminophen PM] diphenhydramine 25 2 - 3 tab PO QHS PRN tab 08/20/19 mg-acetaminophen 500 mg tablet insulin aspart U-100 100 unit/mL 40 unit SC DAILY ml 08/20/19 08/24/19 subcutaneous cartridge insulin detemir U-100 100 unit/mL 70 unit SUBCUT HS ml 08/20/19 08/24/19 subcutaneous solution doxycycline hyclate 100 mg PO BID #14 cap 08/24/19 Previous Rx's Medication Instructions Recorded docusate sodium [Colace] 100 mg PO BID cap 06/18/16 doxycycline hyclate 100 mg PO BID #14 cap 08/24/19 Allergies Allergy/AdvReac Type Severity Reaction Status Date / Time Penicillins Allergy Severe Anaphylaxsi Verified 08/26/19 16:20 s simvastatin Allergy Severe faints Verified 08/26/19 16:20 Sulfa (Sulfonamide Allergy Severe Hives Verified 08/26/19 16:20 Antibiotics) sulfamethoxazole Allergy Severe Hives Verified 08/26/19 16:20 [From Bactrim] trimethoprim [From Bactrim] Allergy Severe Hives Verified 08/26/19 16:20 levofloxacin AdvReac Intermediate Nausea Verified 08/26/19 16:20 General Stated Complaint: Cellulitis VIKRAM: 3 Review of Systems <Chantal Ruelas - Last Filed: 08/27/19 16:20> Narrative: Constitutional: Negative for weight loss, alert and oriented, well groomed, normal body habitus, appears comfortable. HEENT: Denies trauma, headaches, blurry vision, nasal discharge, sore throat, trouble swallowing. Chest: Denies chest pain, palpitations, irregular rhythm, hypertension. Has an abscess noted to the right anterior chest wall. Respiratory: Denies Shortness of breath, cough, hemoptysis. GI: Denies abdominal pain, nausea, vomiting, diarrhea, constipation. : Denies dysuria, hematuria, flank pain, rectal bleeding. Neuro: Denies dizziness, blurry vision, weakness, syncope, headache or facial numbness. Hematologic: Denies easy bruising, intolerance to heat or cold, hair loss. PFSH <Chantal Ruelas - Last Filed: 08/27/19 16:20> Medical History Abdominal pain (Acute) Acute appendicitis with localized peritonitis (Resolved) B12 deficiency (Chronic) Balance problem (Chronic) Bronchitis (Acute) Calf pain (Acute) Cellulitis of right toe (Resolved) right 4th toe Current non-smoker but past smoking history unknown (Acute) Diabetes (Chronic) Diabetes mellitus Diabetic foot ulcer (Acute) DNR (do not resuscitate) (Chronic) Dysphagia (Chronic) Foot drop, right (Acute) Hearing deficit (Chronic) History of amputation of right great toe (Acute) amputation of toes on right foot. Hyperlipidemia (Chronic) Insomnia (Acute) Leg edema, right (Acute) Myalgia (Chronic) Osteomyelitis (Acute) Peripheral neuropathy (Chronic) Physical deconditioning (Acute) Rupture of right biceps tendon (Acute) Rupture of right distal biceps tendon (Acute ~09/2018) Shoulder pain, left (Acute) Skin irritation (Acute) Sleep apnea Spinal stenosis (Acute) Ulcer of foot (Acute) Vitamin D deficiency (Chronic) Weight gain (Acute) Surgical History Amputation left below knee amputation Appendectomy (06/11/16) H/O esophagogastroduodenoscopy (Chronic ~04/22/19) History of colonoscopy (Chronic) History of spinal surgery (Acute) Repair of inguinal hernia Rotator Cuff Repair Family History Mother CAD (coronary artery disease) Social History Smoking/Tobacco Use Status: Former Tobacco Use Alcohol Intake: former Drug use: Never Substance use type: does not use Details: Pt states quit smoking 09/2017 Current gender identity: male Do you feel safe at home: Yes Do you feel safe in your relationship?: Yes Exam <Chantal Ruelas - Last Filed: 08/27/19 16:20> Narrative Exam Narrative: Constitutional: Alert and oriented x3. Appears stated age. Normal body habitus. Head: Normocephalic, no trauma. Eyes: Pupils PERRLA, Red reflex noted, EOM's intact. Eyelids symmetrical without lesions, discharge, or swelling. ENT: Bilateral TM's WNL, External ear normal to inspection, no mastoid TTP, swelling, or erythema, Nasal turbinates WNL, no nasal discharge. Normal dentition, Posterior pharynx WNL, no exudate. Chest: RRR, Normal S1, S2, distal pulses intact. Resp: Lungs clear to auscultation bilaterally, no wheezes, rales, or rhonchi. Musculoskeletal: Normal gait, 5/5 strength to all four extremities. Skin: Does have a large approximate 3 cm x 3 cm abscess noted to the right anterior chest wall with purulent drainage noted. Capillary refill less than 2 sec. Neurologic: Cranial nerves II-XII intact. Alert and oriented x 3. DTR's intact. Hematologic/Lymphatic: No ecchymosis, no lymphadenopathy. Course <Chantal Ruelas - Last Filed: 08/27/19 16:20> Vital Signs Vital signs: Vital Signs Temperature 37.2 C 08/24/19 14:50 Pulse 87 08/24/19 14:50 Respiratory Rate 08/24/19 14:50 Blood Pressure 125/84 08/24/19 14:50 Pulse Oximetry 97 08/24/19 14:50 Temperature 37.2 C 08/24/19 14:50 Temperature Source Oral 08/24/19 14:50 Pulse 87 08/24/19 14:50 Respiratory Rate 08/24/19 14:50 Respiratory Effort Non-Labored 08/24/19 14:58 Blood Pressure 125/84 08/24/19 14:50 Blood Pressure Position Sitting 08/24/19 14:50 Pulse Oximetry 97 08/24/19 14:50 Oxygen Delivery Method Room Air 08/24/19 14:50 Oxygen Flow Rate 0 08/24/19 14:50 Lab/Test Results Lab/Test Results: 08/24/19 15:15 Blood Blood Culture - Pending 08/24/19 15:15 Blood Blood Culture - Pending <GARFIELD Helton - Last Filed: 08/25/19 16:22> Abscess I/D Site: Chest Side (if applicable): Right Sedation/analgesia: None Local Anesthetic: Lidocaine 1% Amount of anesthesia used (mL): 5 Technique: Incised with #11 Blade Amount of fluid expressed (mL): 10 Irrigation: Yes Packing used?: Iodoform Complications: Other (none) Sign Out <Chantal Ruelas - Last Filed: 08/27/19 16:20> Sign Out Data: Sign Out Comment: Pending labs, and I&D of abscess right anterior chest wall Last updated by Chantal Ruelas at 08/24/19 15:50
[2019-08-24 15:55] LABS: Lactate 1.7 mmol/L (0.6-1.4)
[2019-08-24 16:04] LABS: Abs Immature Grans 0.03 k/cumm (0.0-0.09); Absolute Basophil Count 0.08 k/cumm (0.0-0.2); Absolute Eosinophil Count 0.41 k/cumm (0.0-0.7); Absolute Lymphocyte Count 2.22 k/cumm (1.2-3.4); Absolute Monocyte Count 0.61 k/cumm (0.11-0.7); Absolute Neutrophil Count 5.82 k/cumm (1.2-6.7); Basophils % 0.9; Eosinophils % 4.5; HCT 43.7 % (40.0-50.0); Immature Grans % 0.3 %; Lymphocytes % 24.2; Mean Corp. HGB Concentration 34.3 g/dL (32.0-36.0); Mean Corpuscular Hemoglobin 30.2 pg (27.0-33.0); Mean Corpuscular Volume 88.1 fL (80-95); Mean Platelet Volume 10.7 fL (8.0-11.0); Monocytes % 6.7; Neutrophils % 63.4; Platelet Count 230 x1000/uL (130-400); RBC 4.96 m/cumm (4.50-6.00); RBC Distribution Width 12.8 % (11.8-14.1); White Blood Cell Count 9.17 k/cumm (4.4-10.8)
[2019-08-24 16:13] LABS: ALT 31 U/L (16-63); AST 28 U/L (15-37); Albumin 3.6 g/dL (3.4-5.0); Alkaline Phosphatase 73 U/L (46-116); Anion Gap 9.1 mmol/L (3-11); BUN 18 mg/dL (7-18); Bilirubin, Total 0.4 mg/dL (0.2-1.0); CO2 25.9 mmol/L (21.0-32.0); CREATININE 1.15 mg/dL (0.70-1.30); Calcium 8.9 mg/dL (8.5-10.1); Chloride 103 mmol/L (98-107); Glucose 190 mg/dL (74-106); Potassium 4.3 mmol/L (3.5-5.1); Sodium 138 mmol/L (136-145); Total Protein 7.7 g/dL (6.4-8.2)
[2019-08-24] MEDS: Lidocaine/Epinephri/Tetracaine Topical Gel 3 ML TP (17:13)
[2019-08-24] MEDS: Doxycycline Hyclate 100 MG CAP PO (17:30)
--- NOTE | 2019-08-24 17:43 | NUR.NOTE ---
Nursing Note: IV NS started at 1600.
[2019-08-24 18:03] VITALS: BP 136/79; PULSE 72; RESP 18; TEMP 36.7; O2SAT 98
== END 2019-08-24 18:15 | disposition home or self-care (01) ==
PROVIDERS: Registered Nurse Emergency; Emergency Provider Physician Assistant; PCP Family Medicine
DX: L02.213 Cutaneous abscess of chest wall (principal); E11.65 Type 2 diabetes mellitus with hyperglycemia; Z79.4 Long term (current) use of insulin
CPT/HCPCS: 10061; 36415; 80053; 87040; 83605; 85025; 87070; 87205

== ENCOUNTER 2019-08-26 11:58 | Outpatient (RCR) | payer MEDICARE, SELFPAY ==
[2019-08-26] MEDS: Normal Saline Flush 10 ML SYR IVP (12:15)
== END 2019-09-18 23:59 | disposition home or self-care (01) ==
LOC: INF 11:58
PROVIDERS: PCP Family Medicine; Visit Provider Surgery
DX: L02.213 Cutaneous abscess of chest wall (principal)
CPT/HCPCS: 96365; 96366; 99213; J3370

== ENCOUNTER 2019-08-26 16:07 | Emergency (ER) | payer MEDICARE, MEDICAID, SELFPAY ==
[2019-08-26 16:15] VITALS: BP 128/86; PULSE 91; TEMP 36; O2SAT 95
--- NOTE | 2019-08-26 16:15 | RT.EKG_ITS ---
APPROVED REPORT Exam: Resting ECG Patient Location: E HR:72 bpm ECG Measurements Heart Rate 72 AXIS ID 214 P 42 QRSd 108 QRS 19 QT 380 T 59 QTc 418 <Conclusion> Sinus rhythm...normal P axis, V-rate 60- 99 Borderline prolonged ID interval...ID >212, V-rate 50- 90 Posterior infarct, old NSR 72,no stemit, wandering baseline
--- NOTE | 2019-08-26 16:17 | W.ED.GENAD ---
Discharge Plan Disposition Patient Disposition: HOME Condition: Fair Discharge Details Chief Complaint: AMS/LOC Clinical Impression: Abscess, Fatigue Primary Care Provider: Lilli Packer V ED Provider: Barbara Anand Home Meds and New Rx's Prescriptions: Continued lisinopril 2.5 mg tablet 2.5 mg PO DAILY RF: 0 Levemir U-100 Insulin 100 unit/mL solution 70 unit subcut HS RF: 0 insulin aspart U-100 [Novolog PenFill U-100 Insulin] 100 unit/mL cartridge 40 unit SC DAILY RF: 0 diphenhydramine-acetaminophen [Tylenol PM Extra Strength] 25-500 mg tablet 2 - 3 tab PO QHS PRNRF: 0 glipizide 5 MG tablet 10 mg PO DAILY RF: 0 gabapentin [Neurontin] 300 MG capsule 900 mg PO BID RF: 0 docusate sodium [Colace] 100 MG capsule 100 mg PO BID RF: 0 cyanocobalamin (vitamin B-12) 1,000 MCG/ML solution 1,000 mcg IJ DIRECTED RF: 0 melatonin 3 mg Tablet 10 mg PO HS PRNRF: 0 doxycycline hyclate 100 mg capsule 100 mg PO BID Qty: 14 RF: 0 aspirin [Aspirin Low-Strength] 81 MG tablet,chewable 81 mg PO DAILY RF: 0 oxycodone 15 MG tablet 2 tab PO PRN PRNRF: 0 diphenhydramine-acetaminophen [Acetaminophen PM] 25-500 mg Tablet 1 tab PO QHS PRNRF: 0 Discharge Instructions Instructions: Abscess (ED), Fatigue (ED) Additional Instructions: Continue to encourage water intake. You may use pain medication as previously prescribed. I would recommend sitting in a more upright position to sleep to help with discomfort. Please keep your upcoming appointment tomorrow morning with Dr. Perkins. If you develop fever/chills, spreading of the redness, increased confusion, headache, neck pain or other new/worsening symptoms and seek care urgently once again. Referrals: Lilli Packer MD [Primary Care Provider] - Gauri Perkins DO [OSTEOPATHIC DOCTOR] - Discharge Data Discharge Date/Time-TO BE ENTERED AT DEPARTURE: 08/26/19 18:25 Medical Decision Making Patient is a pleasant 60-year-old gentleman presenting today with concern for confusion. Patient was seen by myself 2 days ago at which time he had an abscess in the right side of his chest I indeed. Patient tolerated that well. He had an appointment with general surgery today. He reports at that time the surgeon opened the abscess up further. Patient was given 1 dose of IV vancomycin today. States that when he went home he was confused. Patient states that he believes he was just fatigued. He is ANO x3 at this time. He denies any headache, visual change, chest pain or shortness of breath. He does state that the pain around the area of abscess is greater since having this I&D began today. He denies any GI upset. No weakness. I did consult with the patient's . Please see HPI. No movement abnormalities were noted. She reported the patient was drawing a blank. On exam, patient is resting comfortably. He does appear to be at baseline compared to 2 days ago. The area of abscess does appear slightly smaller than when I saw him previously but I do still appreciate erythema and warmth. This has been opened further by surgeon. No crepitus. He does have pain with palpation about this area. No discharge is expressed. Lungs are clear. Normal neurologic exam. Spoke with Dr. Pearson who performed the I&D again today. In particular, I was wondering if we needed imaging of the chest to see if there is any deep space involvement. She reports that her incision and drainage was very thorough today. She describes a 2 x 2 centimeter opening of the chest wall and being able to completely visualize the mcmahon and floor of this abscess. She does not feel that imaging of the chest is required for further evaluation of the abscess itself at this time. There was concern at this point is for potential sepsis. Patient does not have evidence of TIA, CVA. Questioning if this could be hypoglycemia. Will obtain [id number] glucose, laboratory evaluation. The description I am getting from the patient and his do not sound to be true acute confusion and do not feel that imaging of the head is warranted at this time particularly such a reassuring exam. Labs reviewed. No leukocytosis. CBC is stable. Lactate is 1.5, normal electrolytes. CRP is elevated 1.07. TSH within normal limits. Troponin is less than 0.05. Patient continues to rest comfortably in the alert and oriented. He did doze off once and continues to endorse being fatigued. Vital signs remained stable. Patient be discharged home. Not see any evidence of sepsis. He does have blood cultures pending. He has an appointment with general surgeon tomorrow. I did let the general surgeon know about the labs. If he continues to fail outpatient management, we did discuss that he may require inpatient admission. However, he would prefer to continue along the outpatient management course at this point. Patient was given strict return precautions. Given how fatigued he has been in recent days, he will not drive. I did discuss this at length with his who is also in agreement. All of their questions and concerns were addressed and they are in agreement with this plan. HPI General Mode of arrival: ambulatory. Date/Time Provider Initiated Documentation: 08/26/19 16:17. Limitations to Documentation: no limitations. Information obtained by: patient, family, RN notes reviewed and old records reviewed. HPI Narrative: Patient is a pleasant 68-year-old male presents today with chief complaint of altered mental status. Patient seen by myself 2 days ago at which time an abscess was drained on the right side of his chest wall. He states that while he initially felt improved, the pain began to come back primarily last night. He was seen again by general surgery today. He reports a general surgery again debrided the area of abscess. They advised IV vancomycin as an outpatient. First dosing was given this afternoon. Patient continues to be on p.o. doxycycline as well. Patient on home around 3 PM. At that time, speaking with his and she noted him to be confused. Patient states that he was feeling very fatigued is has been having difficulty sleeping in recent days. He denies any head injury. No headache. No weakness. No focal deficits. Patient's goes up further to describe this as drawing a blank. States that he was also describing MRA he should have been describing MRSA which is unusual for him. She did not note any change in his ambulation or movements. Patient does have an antalgic gait at baseline secondary to previous amputations. She describes his confusion is more than being just fatigued. Related Data Home Medications Medication Instructions Recorded Confirmed glipizide 10 mg PO DAILY 09/22/12 08/24/19 gabapentin [Neurontin] 900 mg PO BID 12/05/14 08/24/19 docusate sodium [Colace] 100 mg PO BID cap 06/18/16 08/24/19 aspirin [Aspirin Low-Strength] 81 mg PO DAILY 12/25/16 08/24/19 oxycodone 2 tab PO PRN PRN 03/29/17 08/24/19 cyanocobalamin (vitamin B-12) 1,000 mcg IJ DIRECTED 10/03/17 08/24/19 melatonin 10 mg PO HS PRN 11/10/17 08/24/19 lisinopril 2.5 mg tablet 2.5 mg PO DAILY 05/23/18 08/24/19 diphenhydramine-acetaminophen 1 tab PO QHS PRN 06/04/18 08/24/19 [Acetaminophen PM] diphenhydramine 25 2 - 3 tab PO QHS PRN tab 08/20/19 mg-acetaminophen 500 mg tablet insulin aspart U-100 100 unit/mL 40 unit SC DAILY ml 08/20/19 08/24/19 subcutaneous cartridge insulin detemir U-100 100 unit/mL 70 unit SUBCUT HS ml 08/20/19 08/24/19 subcutaneous solution doxycycline hyclate 100 mg PO BID #14 cap 08/24/19 Previous Rx's Medication Instructions Recorded docusate sodium [Colace] 100 mg PO BID cap 06/18/16 doxycycline hyclate 100 mg PO BID #14 cap 08/24/19 Allergies Allergy/AdvReac Type Severity Reaction Status Date / Time Penicillins Allergy Severe Anaphylaxsi Verified 08/26/19 16:20 s simvastatin Allergy Severe faints Verified 08/26/19 16:20 Sulfa (Sulfonamide Allergy Severe Hives Verified 08/26/19 16:20 Antibiotics) sulfamethoxazole Allergy Severe Hives Verified 08/26/19 16:20 [From Bactrim] trimethoprim [From Bactrim] Allergy Severe Hives Verified 08/26/19 16:20 levofloxacin AdvReac Intermediate Nausea Verified 08/26/19 16:20 General VIKRAM: 3 Review of Systems Constitutional Constitutional: Reports as per HPI, Denies chills, Denies fever(s), Denies headache(s), Denies lethargy and Denies poor appetite Eyes Eyes: Denies change in vision ENT Ears, Nose, Mouth, and Throat: Denies dizziness and Denies headache(s) Cardiovascular Cardiovascular: Reports as per HPI, Denies dyspnea and Denies dyspnea on exertion Respiratory Respiratory: Reports as per HPI, Denies chest congestion, Denies cough, Denies pain on inspiration, Denies pain with cough, Denies dyspnea, Denies dyspnea on exertion and Denies wheezing Gastrointestinal Gastrointestinal: Reports as per HPI, Denies abdominal pain, Denies diarrhea, Denies nausea and Denies vomiting Genitourinary Genitourinary: Denies system reviewed and no additional complaints, except as documented (denies change in urinary habits) Musculoskeletal Musculoskeletal: Reports as per HPI and Denies back pain Integumentary/Breasts Skin/Breast: Reports as per HPI and Denies rash Neurologic Neurologic: Reports as per HPI, Denies dizziness and Denies headache(s) Allergic/Immunologic Allergic/Immunologic: Denies wheezing [facility] Social History Smoking/Tobacco Use Status: Former Tobacco Use Alcohol Intake: former Drug use: Never Substance use type: does not use Details: Pt states quit smoking 09/2017 Current gender identity: male Do you feel safe at home: Yes Do you feel safe in your relationship?: Yes Exam Const General: cooperative, healthy appearing, comfortable, no acute distress and well developed Nutritional Appearance: well nourished and overweight Orientation: alert, awake and oriented x3 HENMT Head: normal to inspection Ears: hearing grossly normal bilaterally Mouth: moist mucous membranes Chest Chest: no crepitus Chest/axillae images: 1. open wound with packing centrally. The area of erythema is smaller than when i saw the patient 2 days ago. Resp Effort & Inspection: normal respiratory effort, able to speak in complete sentences and no respiratory distress Auscultation: clear to auscultation bilaterally, no rales, no rhonchi and no wheezes Cardio Rate: regular rate Rhythm: regular rhythm Heart Sounds: S1 normal and S2 normal GI Inspection: normal to inspection, no edema and non-distended Palpation: soft, no hepatosplenomegaly, not firm, no guarding, not rigid and nontender Auscultation: normal bowel sounds Back/Spine/Pelvis Back: no CVA tenderness Thoracic/Lumbar Spine: thoracic and lumbar spine normal to inspection Skin General skin exam: erythema (open abscess as above ) Neuro General: patient alert, patient awake and patient oriented x3 Cognition: normal cognition Speech: speech normal Gait: normal gait Extrem General: normal to inspection, capillary refill normal, no pedal edema, no calf tenderness and normal gait Psych Appearance: grossly normal and well kempt Mental Status: mental status grossly normal Speech and Movement: speech and movement normal
[2019-08-26] MEDS: Normal Saline 1,000 ML 1000 ML IV (16:43)
[2019-08-26 16:44] VITALS: RESP 18
[2019-08-26 16:54] LABS: Lactate 1.5 mmol/L (0.6-1.4)
[2019-08-26 16:55] VITALS: TEMP 37
[2019-08-26 16:56] LABS: Abs Immature Grans 0.02 k/cumm (0.0-0.09); Absolute Basophil Count 0.07 k/cumm (0.0-0.2); Absolute Eosinophil Count 0.41 k/cumm (0.0-0.7); Absolute Lymphocyte Count 2.07 k/cumm (1.2-3.4); Absolute Monocyte Count 0.43 k/cumm (0.11-0.7); Absolute Neutrophil Count 4.81 k/cumm (1.2-6.7); Basophils % 0.9; Eosinophils % 5.2; HCT 40.7 % (40.0-50.0); HGB 14.1 g/dL (13.5-17.5); Immature Grans % 0.3 %; Lymphocytes % 26.5; Mean Corp. HGB Concentration 34.6 g/dL (32.0-36.0); Mean Corpuscular Hemoglobin 30.9 pg (27.0-33.0); Mean Corpuscular Volume 89.3 fL (80-95); Mean Platelet Volume 10.2 fL (8.0-11.0); Monocytes % 5.5; Neutrophils % 61.6; Platelet Count 259 x1000/uL (130-400); RBC 4.56 m/cumm (4.50-6.00); RBC Distribution Width 12.9 % (11.8-14.1); White Blood Cell Count 7.81 k/cumm (4.4-10.8)
[2019-08-26 17:12] LABS: C-Reactive Protein 1.07 mg/dL (0.0-0.3)
[2019-08-26 17:20] LABS: ALT 38 U/L (16-63); AST 31 U/L (15-37); Albumin 3.5 g/dL (3.4-5.0); Alkaline Phosphatase 63 U/L (46-116); Anion Gap 9.2 mmol/L (3-11); BUN 15 mg/dL (7-18); Bilirubin, Total 0.5 mg/dL (0.2-1.0); CO2 24.8 mmol/L (21.0-32.0); CREATININE 1.01 mg/dL (0.70-1.30); Chloride 104 mmol/L (98-107); Glucose 129 mg/dL (74-106); Magnesium 1.8 mg/dL (1.8-2.4); Sodium 138 mmol/L (136-145); TSH 1.12 uIU/mL (0.36-3.74); Total Protein 7.4 g/dL (6.4-8.2)
[2019-08-26 17:21] LABS: Troponin I < 0.05 ng/mL (<0.06)
[2019-08-26 18:24] VITALS: BP 123/70; PULSE 75; RESP 18; TEMP 36.9; O2SAT 98
== END 2019-08-26 18:25 | disposition home or self-care (01) ==
PROVIDERS: Emergency Provider Physician Assistant; PCP Family Medicine
DX: L02.213 Cutaneous abscess of chest wall (principal); R53.83 Other fatigue; E11.9 Type 2 diabetes mellitus without complications; Z79.4 Long term (current) use of insulin
CPT/HCPCS: 36415; 80053; 87040; 93005; 96360; 96365; 96366; 97597; 99213; 99284; 83605; 83735; 84443; 84484; 85025; 86140; 93010; J3370

== ENCOUNTER → 2019-08-27 09:48 | Outpatient (BNVA) | payer MEDICARE, SELFPAY | PROVIDERS: PCP Family Medicine; Referring Provider Family Medicine; Visit Provider Surgery | DX: L72.3 Sebaceous cyst (principal); L02.91 Cutaneous abscess, unspecified ==

== ENCOUNTER → 2019-08-28 08:47 | Outpatient (BNVA) | payer MEDICARE, MEDICAID, SELFPAY | PROVIDERS: PCP Family Medicine; Referring Provider Family Medicine; Visit Provider Surgery | DX: L02.213 Cutaneous abscess of chest wall (principal); L08.9 Local infection of the skin and subcutaneous tissue, unspecified | CPT/HCPCS: 99213 ==

== ENCOUNTER → 2019-09-02 10:38 | Outpatient (BNVA) | payer MEDICARE, MEDICAID, SELFPAY | PROVIDERS: PCP Family Medicine; Referring Provider Family Medicine; Visit Provider Surgery | DX: L72.3 Sebaceous cyst (principal); L08.9 Local infection of the skin and subcutaneous tissue, unspecified; Z51.89 Encounter for other specified aftercare | CPT/HCPCS: 99212; 99213 ==

== ENCOUNTER → 2019-09-16 10:55 | Outpatient (BNVA) | payer MEDICARE, MEDICAID, SELFPAY | PROVIDERS: PCP Family Medicine; Referring Provider Family Medicine; Visit Provider Physical Therapy Assistant | DX: L08.9 Local infection of the skin and subcutaneous tissue, unspecified (principal); L02.213 Cutaneous abscess of chest wall; Z51.89 Encounter for other specified aftercare; E11.9 Type 2 diabetes mellitus without complications; Z79.4 Long term (current) use of insulin | CPT/HCPCS: 99212; 99213 ==

== ENCOUNTER → 2019-10-01 12:55 | Outpatient (BNVA) | payer MEDICARE, MEDICAID, SELFPAY | PROVIDERS: PCP Family Medicine; Referring Provider Family Medicine; Visit Provider Physical Therapy Assistant | DX: L72.3 Sebaceous cyst (principal); L08.9 Local infection of the skin and subcutaneous tissue, unspecified; Z51.89 Encounter for other specified aftercare; E11.9 Type 2 diabetes mellitus without complications; Z79.4 Long term (current) use of insulin | CPT/HCPCS: 99212; 99213 ==

== ENCOUNTER → 2019-10-14 09:39 | Outpatient (BNVA) | payer MEDICARE, MEDICAID, SELFPAY | PROVIDERS: PCP Family Medicine; Visit Provider Student in an Organized Health Care Education/Training Program | DX: M25.512 Pain in left shoulder (principal); M65.812 Other synovitis and tenosynovitis, left shoulder; M75.42 Impingement syndrome of left shoulder; M75.122 Complete rotator cuff tear or rupture of left shoulder, not specified as traumatic; M75.101 Unspecified rotator cuff tear or rupture of right shoulder, not specified as traumatic; M12.811 Other specific arthropathies, not elsewhere classified, right shoulder; M12.812 Other specific arthropathies, not elsewhere classified, left shoulder | CPT/HCPCS: 20610; 99214; J1030 ==

== ENCOUNTER → 2019-10-29 14:46 | Outpatient (BNVA) | payer MEDICARE, MEDICAID, SELFPAY | PROVIDERS: PCP Family Medicine; Referring Provider Family Medicine; Visit Provider Physical Therapy Assistant | DX: Z51.89 Encounter for other specified aftercare (principal) | CPT/HCPCS: 99212 ==

== ENCOUNTER 2020-01-06 15:28 | Emergency (ER) | payer MEDICARE, MEDICAID, SELFPAY ==
[2020-01-06 15:34] VITALS: BP 140/72; PULSE 78; RESP 16; TEMP 36.4; O2SAT 97
--- NOTE | 2020-01-06 15:54 | ED.GENADUL_ITS ---
Discharge Plan Disposition Patient Disposition: HOME Condition: Stable Discharge Details Clinical Impression: Cellulitis Primary Care Provider: Lilli Packer V ED Provider: Chantal Ruelas Home Meds and New Rx's Prescriptions: New doxycycline hyclate 100 mg tablet 100 mg PO BID 7 Days Qty: 14 RF: 0 Continued metformin 850 mg tablet 850 mg PO DAILY RF: 0 lisinopril 2.5 mg tablet 2.5 mg PO DAILY RF: 0 Levemir U-100 Insulin 100 unit/mL solution 70 unit subcut HS RF: 0 insulin aspart U-100 [Novolog PenFill U-100 Insulin] 100 unit/mL cartridge 40 unit SC DAILY RF: 0 diphenhydramine-acetaminophen [Tylenol PM Extra Strength] 25-500 mg tablet 2 - 3 tab PO QHS PRNRF: 0 glipizide 5 MG tablet 10 mg PO DAILY RF: 0 gabapentin [Neurontin] 300 MG capsule 900 mg PO BID RF: 0 docusate sodium [Colace] 100 MG capsule 100 mg PO BID RF: 0 cyanocobalamin (vitamin B-12) 1,000 MCG/ML solution 1,000 mcg IJ DIRECTED RF: 0 melatonin 3 mg Tablet 10 mg PO HS PRNRF: 0 pantoprazole 40 mg tablet,delayed release (DR/EC) 40 mg PO DAILY RF: 0 aspirin [Aspirin Low-Strength] 81 MG tablet,chewable 81 mg PO DAILY RF: 0 oxycodone 15 MG tablet 2 tab PO PRN PRNRF: 0 diphenhydramine-acetaminophen [Acetaminophen PM] 25-500 mg Tablet 1 tab PO QHS PRNRF: 0 Discharge Instructions Instructions: Cellulitis (ED) Additional Instructions: Take antibiotics as prescribed. Return for any worsening redness, drainage, swelling or any concerns. Follow up with primary care provider in 3-5 days. Return to ED sooner if any worsening or concerns. Increase oral fluids. Please take Tylenol with food every 4-6 hours as needed for pain and swelling. Referrals: Lilli Packer MD [Primary Care Provider] - Discharge Data Discharge Date/Time-TO BE ENTERED AT DEPARTURE: 01/06/20 16:08 Medical Decision Making Patient was treated empirically for previous MRSA infection was given doxycycline 100 mg twice daily x7 days. Prior to discharge patient was able to self breast some thick white discharge from a port just adjacent to the wound. Instructed to follow-up with PCP, verbalized understanding discussed strict return instructions, verbalized understanding. HPI General Mode of arrival: ambulatory . Date/Time Provider Initiated Documentation: 01/06/20 15:38 . Limitations to Documentation: no limitations . Information obtained by: patient . HPI Narrative: 69-year-old male presents to the ER chief complaint of right anterior chest wall wound. He was treated for abscess containing MRSA in August. He did have an I&D which was pretty sensitive from the explanation. He reports noticing some tenderness and a small elizalde with foul-smelling discharge last couple of days. He is concerned for reinfection. He is not on any antibiotics at this time. He does have a history of diabetes, sleep apnea, osteomyelitis, B12 deficiency. Related Data Home Medications Medication Instructions Recorded Confirmed glipizide 10 mg PO DAILY 09/22/12 01/06/20 gabapentin [Neurontin] 900 mg PO BID 12/05/14 01/06/20 docusate sodium [Colace] 100 mg PO BID cap 06/18/16 01/06/20 aspirin [Aspirin Low-Strength] 81 mg PO DAILY 12/25/16 01/06/20 oxycodone 2 tab PO PRN PRN 03/29/17 01/06/20 cyanocobalamin (vitamin B-12) 1,000 mcg IJ DIRECTED 10/03/17 01/06/20 melatonin 10 mg PO HS PRN 11/10/17 01/06/20 lisinopril 2.5 mg tablet 2.5 mg PO DAILY 05/23/18 01/06/20 diphenhydramine-acetaminophen 1 tab PO QHS PRN 06/04/18 01/06/20 [Acetaminophen PM] diphenhydramine 25 2 - 3 tab PO QHS PRN tab 08/20/19 01/06/20 mg-acetaminophen 500 mg tablet insulin aspart U-100 100 unit/mL 40 unit SC DAILY ml 08/20/19 01/06/20 subcutaneous cartridge insulin detemir U-100 100 unit/mL 70 unit SUBCUT HS ml 08/20/19 01/06/20 subcutaneous solution metformin 850 mg tablet 850 mg PO DAILY 08/28/19 01/06/20 doxycycline hyclate 100 mg PO BID 7 Days #14 tab 01/06/20 pantoprazole 40 mg PO DAILY 01/06/20 01/06/20 Previous Rx's Medication Instructions Recorded docusate sodium [Colace] 100 mg PO BID cap 06/18/16 doxycycline hyclate 100 mg PO BID 7 Days #14 tab 01/06/20 Allergies Allergy/AdvReac Type Severity Reaction Status Date / Time Penicillins Allergy Severe Anaphylaxsi Verified 01/06/20 15:40 s Sulfa (Sulfonamide Allergy Severe Hives Verified 01/06/20 15:40 Antibiotics) sulfamethoxazole Allergy Severe Hives Verified 01/06/20 15:40 [From Bactrim] trimethoprim [From Bactrim] Allergy Severe Hives Verified 01/06/20 15:40 simvastatin AdvReac Severe faints Verified 01/06/20 15:40 levofloxacin AdvReac Intermediate Nausea Verified 01/06/20 15:40 General Stated Complaint: Cellulitis VIKRAM: 3 Review of Systems All systems reviewed & are unremarkable except as noted in HPI and below Integumentary/Breasts Skin/Breast: Reports as per HPI, Reports changing lesions and Reports wounds COUNT INCLUDES THE [facility] Medical History Abdominal pain Acute appendicitis with localized peritonitis B12 deficiency Balance problem Bronchitis Calf pain Cellulitis of right toe right 4th toe Current non-smoker but past smoking history unknown Diabetes Diabetes mellitus Diabetic foot ulcer DNR (do not resuscitate) Dysphagia Foot drop, right Hearing deficit 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 Hyperlipidemia Infected sebaceous cyst of skin Insomnia Leg edema, right Myalgia Osteomyelitis Peripheral neuropathy Physical deconditioning Rupture of right biceps tendon Rupture of right distal biceps tendon (~09/2018) Shoulder pain, left Skin irritation Sleep apnea Spinal stenosis Ulcer of foot Vitamin D deficiency Weight gain Surgical History Amputation left below knee amputation Appendectomy (06/11/16) H/O esophagogastroduodenoscopy (~06/09/18) History of colonoscopy History of spinal surgery Repair of inguinal hernia Rotator Cuff Repair Family History Mother CAD (coronary artery disease) Social History Smoking/Tobacco Use Status: Former Tobacco Use Smoking risk assessment performed?: Yes Alcohol Intake: former Drug use: Never Substance use type: does not use Details: Pt states quit smoking 09/2017 Current gender identity: male Do you feel safe at home: Yes Do you feel safe in your relationship?: Yes Exam Skin Wounds: wounds noted right anterior chest size (0.5cm), drainage (thick) white, without odor and other (Induration noted, no fluctuance); without any surrounding erythema Course Vital Signs Vital signs: Vital Signs Temperature 36.4 C L 01/06/20 15:34 Pulse 78 01/06/20 15:34 Respiratory Rate 16 01/06/20 15:34 Blood Pressure 140/72 01/06/20 15:34 Pulse Oximetry 97 01/06/20 15:34 Temperature 36.4 C L 01/06/20 15:34 Temperature Source Temporal Artery Scan 01/06/20 15:34 Pulse 78 01/06/20 15:34 Respiratory Rate 16 01/06/20 15:34 Respiratory Effort Non-Labored 01/06/20 15:39 Blood Pressure 140/72 01/06/20 15:34 Blood Pressure Position Sitting 01/06/20 15:34 Pulse Oximetry 97 01/06/20 15:34 Oxygen Delivery Method Room Air 01/06/20 15:34 Oxygen Flow Rate 0 01/06/20 15:34 Pain Level 2 01/06/20 15:34
[2020-01-06] MEDS: Doxycycline Hyclate 100 MG CAP PO (16:00)
[2020-01-06] MEDS: Doxycycline Hyclate 100 MG, 2 CAPS/BTL PO (16:00)
== END 2020-01-06 16:08 | disposition home or self-care (01) ==
LOC: ER 16:09
PROVIDERS: Emergency Provider Registered Nurse Emergency; PCP Family Medicine
DX: L03.313 Cellulitis of chest wall (principal); R23.4 Changes in skin texture; Z86.14 Personal history of Methicillin resistant Staphylococcus aureus infection; E11.9 Type 2 diabetes mellitus without complications; Z79.4 Long term (current) use of insulin
CPT/HCPCS: 99283

== ENCOUNTER → 2020-01-13 12:36 | Outpatient (BNVA) | payer MEDICARE, MEDICAID, SELFPAY | PROVIDERS: PCP Family Medicine; Referring Provider Family Medicine; Visit Provider Student in an Organized Health Care Education/Training Program | DX: M25.512 Pain in left shoulder (principal); M75.112 Incomplete rotator cuff tear or rupture of left shoulder, not specified as traumatic; Z98.890 Other specified postprocedural states; M75.122 Complete rotator cuff tear or rupture of left shoulder, not specified as traumatic; M65.812 Other synovitis and tenosynovitis, left shoulder; M75.42 Impingement syndrome of left shoulder; E11.42 Type 2 diabetes mellitus with diabetic polyneuropathy; E11.69 Type 2 diabetes mellitus with other specified complication | CPT/HCPCS: 99214 ==

== ENCOUNTER 2020-05-03 14:14 | Outpatient (CLI) | payer MEDICARE, MEDICAID, SELFPAY ==
--- NOTE | 2020-05-03 13:30 | DI.RAD_ITS ---
EXAM: XR SHOULDER RT COMPLETE 2+V CLINICAL HISTORY: right shoulder pain TECHNIQUE: COMPARISON: CR XR SHOULDER LT COMPLETE 2+V from 06/30/2019 FINDINGS: Two views were obtained. There are suture anchors in the greater tuberosity of the humerus with mild deformity the greater tuberosity. There are moderate hypertrophic degenerative changes of the AC ashlyn int. There are moderate marginal osteophytes of the glenoid and minimal marginal osteophytes humeral head. Cartilaginous joint space of glenohumeral joint appears fairly well maintained. IMPRESSION: Mild degenerative changes as described above involving glenohumeral and acromioclavicular joints. RADIATION DOSE DELIVERED: Total DLP
== END 2020-05-03 14:15 | disposition home or self-care (01) ==
LOC: DIORS 14:14
PROVIDERS: PCP Family Medicine; Referring Provider Family Medicine; Visit Provider Student in an Organized Health Care Education/Training Program
DX: M19.011 Primary osteoarthritis, right shoulder (principal); S46.211D Strain of muscle, fascia and tendon of other parts of biceps, right arm, subsequent encounter; X58.XXXD Exposure to other specified factors, subsequent encounter; M75.112 Incomplete rotator cuff tear or rupture of left shoulder, not specified as traumatic; Z98.890 Other specified postprocedural states; M65.812 Other synovitis and tenosynovitis, left shoulder; M75.42 Impingement syndrome of left shoulder; E11.9 Type 2 diabetes mellitus without complications
CPT/HCPCS: 20610; 99213; 73030; J1030

== ENCOUNTER 2020-06-24 04:01 | Outpatient (CLI) | payer MEDICARE, SELFPAY ==
[2020-06-24 15:10] LABS: ALT 51 U/L (16-63); AST 25 U/L (15-37); Albumin 3.8 g/dL (3.4-5.0); Alkaline Phosphatase 78 U/L (46-116); Anion Gap 11.9 mmol/L (3-11); BUN 14 mg/dL (7-18); Bilirubin, Total 0.4 mg/dL (0.2-1.0); CO2 24.1 mmol/L (21.0-32.0); Calcium 9.2 mg/dL (8.5-10.1); Calculated LDL 110 mg/dL (<100); Chloride 104 mmol/L (98-107); Cholesterol 204 mg/dL (<200); Glucose 265 mg/dL (74-106); HDL Cholesterol 29 mg/dL (40-60); Potassium 4.8 mmol/L (3.5-5.1); Sodium 140 mmol/L (136-145); Total Protein 7.3 g/dL (6.4-8.2); Triglyceride 329 mg/dL (<150)
== END 2020-06-24 04:02 | disposition home or self-care (01) ==
LOC: LBO 04:02
PROVIDERS: PCP Family Medicine; Visit Provider Family Medicine
DX: E11.8 Type 2 diabetes mellitus with unspecified complications (principal); E78.5 Hyperlipidemia, unspecified; R27.9 Unspecified lack of coordination; Z89.519 Acquired absence of unspecified leg below knee
CPT/HCPCS: 36415; 80053; 80061; 83036

== ENCOUNTER 2020-12-29 02:39 | Outpatient (CLI) | payer MEDICARE, SELFPAY ==
[2020-12-30 09:19] LABS: BUN 19 mg/dL (7-18); Calcium 9.6 mg/dL (8.5-10.1); Chloride 104 mmol/L (98-107); Glucose 156 mg/dL (74-106); Potassium 5.3 mmol/L (3.5-5.1); Sodium 141 mmol/L (136-145); Vitamin B12 642 pg/mL (193-986)
== END 2020-12-29 02:40 | disposition home or self-care (01) ==
LOC: LBO 02:39
PROVIDERS: PCP Family Medicine; Visit Provider Family Medicine
DX: E11.8 Type 2 diabetes mellitus with unspecified complications (principal); E53.8 Deficiency of other specified B group vitamins
CPT/HCPCS: 36415; 80048; 82607

== ENCOUNTER → 2021-05-03 13:19 | Outpatient (BNVA) | payer MEDICARE, MEDICAID, SELFPAY | PROVIDERS: PCP Family Medicine; Referring Provider Family Medicine; Visit Provider Student in an Organized Health Care Education/Training Program | DX: M75.122 Complete rotator cuff tear or rupture of left shoulder, not specified as traumatic; M75.102 Unspecified rotator cuff tear or rupture of left shoulder, not specified as traumatic; M12.812 Other specific arthropathies, not elsewhere classified, left shoulder; M75.101 Unspecified rotator cuff tear or rupture of right shoulder, not specified as traumatic; M12.811 Other specific arthropathies, not elsewhere classified, right shoulder; S46.211A Strain of muscle, fascia and tendon of other parts of biceps, right arm, initial encounter; X58.XXXA Exposure to other specified factors, initial encounter | CPT/HCPCS: 20610; 99213; J1030 ==

== ENCOUNTER 2021-10-16 12:53 | Outpatient (CLI) | payer MEDICARE, MEDICAID, SELFPAY ==
[2021-10-16 12:56] LABS: HCT 44.4 % (40.0-50.0); MCH 29.9 pg (27.0-33.0); MCHC 33.8 % (32.0-36.0); MCV 88 fL (80-95); MPV 10.5 fL (8.0-11.0); Platelet Count 374 10^3/uL (130-400); RBC 5.02 10^6/uL (4.36-5.78); RDW 12.5 % (11.8-14.1); RDW-SD 40.8 fL; WBC 8.76 10^3/uL (4.4-10.8)
[2021-10-16 13:39] LABS: ALT 42 U/L (16-63); AST 23 U/L (15-37); Albumin 3.7 g/dL (3.4-5.0); Alkaline Phosphatase 63 U/L (46-116); Anion Gap 11.8 mmol/L (3-11); BUN 18 mg/dL (7-18); Bilirubin, Total 0.4 mg/dL (0.2-1.0); CO2 25.2 mmol/L (21.0-32.0); Calcium 9.2 mg/dL (8.5-10.1); Chloride 105 mmol/L (98-107); Estimated GFR 80.97 (mL/min/1.73m2); Glucose 210 mg/dL (74-106); Potassium 4.6 mmol/L (3.5-5.1); Sodium 142 mmol/L (136-145); Total Protein 7.6 g/dL (6.4-8.2); Vitamin B12 750 pg/mL (193-986)
[2021-10-17 18:22] LABS: PSA, Screening 0.1 ng/mL (<=6.5)
== END 2021-10-16 12:54 | disposition home or self-care (01) ==
LOC: LBO 12:59
PROVIDERS: PCP Family Medicine; Visit Provider Family Medicine
DX: E53.8 Deficiency of other specified B group vitamins (principal); E78.5 Hyperlipidemia, unspecified; R19.4 Change in bowel habit; E11.8 Type 2 diabetes mellitus with unspecified complications; Z12.5 Encounter for screening for malignant neoplasm of prostate
CPT/HCPCS: 36415; 80053; 84153; 85027; 82607

== ENCOUNTER → 2022-05-08 13:43 | Outpatient (BNVA) | payer MEDICARE, MEDICAID, SELFPAY | PROVIDERS: PCP Family Medicine; Referring Provider Family Medicine; Visit Provider Student in an Organized Health Care Education/Training Program | DX: M75.101 Unspecified rotator cuff tear or rupture of right shoulder, not specified as traumatic (principal); M75.102 Unspecified rotator cuff tear or rupture of left shoulder, not specified as traumatic; M12.811 Other specific arthropathies, not elsewhere classified, right shoulder; M12.812 Other specific arthropathies, not elsewhere classified, left shoulder; R73.09 Other abnormal glucose | CPT/HCPCS: 99212 ==

== ENCOUNTER 2022-08-02 18:25 | Outpatient (REF) | payer MEDICARE, MEDICAID, SELFPAY ==
[2022-08-02 19:46] LABS: ALT 34 U/L (16-63); AST 29 U/L (15-37); Albumin 3.9 g/dL (3.4-5.0); Alkaline Phosphatase 59 U/L (46-116); Anion Gap 10.1 mmol/L (3-11); BUN 14 mg/dL (7-18); Bilirubin, Total 0.4 mg/dL (0.2-1.0); CO2 24.9 mmol/L (21.0-32.0); Calcium 9.1 mg/dL (8.5-10.1); Chloride 108 mmol/L (98-107); Estimated GFR 80.47 (mL/min/1.73m2); Glucose 115 mg/dL (74-106); Potassium 4.6 mmol/L (3.5-5.1); Sodium 143 mmol/L (136-145); TSH (W/Ref FT4) 1.08 uIU/mL (0.36-3.74); Total Protein 7.6 g/dL (6.4-8.2)
== END 2022-08-02 18:26 | disposition home or self-care (01) ==
LOC: NCHCN 18:25
PROVIDERS: PCP Family Medicine; Visit Provider Family Medicine
DX: E11.8 Type 2 diabetes mellitus with unspecified complications (principal); R27.9 Unspecified lack of coordination; E78.5 Hyperlipidemia, unspecified
CPT/HCPCS: 80053; 84443

== ENCOUNTER → 2022-10-09 09:33 | Outpatient (BNVA) | payer MEDICARE, MEDICAID, SELFPAY | PROVIDERS: PCP Family Medicine; Referring Provider Family Medicine; Visit Provider Student in an Organized Health Care Education/Training Program | DX: M75.101 Unspecified rotator cuff tear or rupture of right shoulder, not specified as traumatic (principal); M75.102 Unspecified rotator cuff tear or rupture of left shoulder, not specified as traumatic; M12.811 Other specific arthropathies, not elsewhere classified, right shoulder; M12.812 Other specific arthropathies, not elsewhere classified, left shoulder | CPT/HCPCS: 99213 ==

== ENCOUNTER 2023-02-04 10:40 | Emergency (ER) | payer MEDICARE, MEDICAID, SELFPAY ==
[2023-02-04 10:57] VITALS: BP 100/59; PULSE 72; RESP 18; TEMP 36.5; O2SAT 96
--- NOTE | 2023-02-04 12:49 | ED.GENADUL_ITS ---
Discharge Plan Disposition Patient Disposition: Home Condition: Stable Discharge Details Clinical Impression: Infection of amputation stump, left lower extremity Primary Care Provider: Lilli Packer V ED Provider: Nick Yo Home Meds and New Rx's Prescriptions: New clindamycin HCl 150 mg capsule 450 mg PO TID Qty: 60 0RF Continued metformin 850 mg tablet 850 mg PO ONCE lisinopril 2.5 mg tablet 2.5 mg PO DAILY gabapentin 300 mg capsule See Rx Instructions PO BID Rx Instructions: orally twice a day; PCP med list reports 900mg Qam and 1,500 Qpm Trulicity 0.75 mg/0.5 mL pen injector 0.75 mg subcut QWEEK diphenhydramine-acetaminophen [Tylenol PM Extra Strength] 25-500 mg tablet 2 - 3 tab PO QHS PRN ezetimibe [Zetia] 10 mg tablet 10 mg PO DAILY cholecalciferol (vitamin D3) 50 mcg (2,000 unit) capsule 50 mcg PO DAILY insulin aspart U-100 [Novolog PenFill U-100 Insulin] 100 unit/mL cartridge 1 sliding scale dose SC .before meals Rx Instructions: up to a total of 55units in a 24hr period. Levemir U-100 Insulin 100 unit/mL solution 74 unit subcut HS glipizide 5 mg tablet 10 mg PO DAILY Rx Instructions: XL cyanocobalamin (vitamin B-12) 1,000 MCG/ML solution 1,000 mcg IJ DIRECTED melatonin 3 mg Tablet 10 mg PO HS PRN pantoprazole 40 mg tablet,delayed release (DR/EC) 40 mg PO DAILY Patient Comments: TAKE 1 TABLET BY MOUTH ONCE DAILY docusate sodium [Colace] 100 MG capsule 100 mg PO DAILY aspirin [Aspirin Low-Strength] 81 MG tablet,chewable 81 mg PO DAILY oxycodone 15 MG tablet 2 tab PO PRN PRN Discharge Instructions Instructions: Cellulitis (ED) Additional Instructions: Please take full course of antibiotic as prescribed. Keep wound clean and dry. Apply antibiotic ointment twice daily over the next week. Please contact your primary care physician to arrange follow-up. Call today. Return to the ER immediately for any worsening or new concerning symptoms. Referrals: Lilli Packer MD [Primary Care Provider] - Discharge Data Discharge Date/Time-TO BE ENTERED AT DEPARTURE: 02/04/23 13:08 Medical Decision Making 72yo male with skin irritation with superficial blister distal left amputated stump. Suspect early celulitis. Patient notes blood glucose well controlled - 100's today. Patient notes that prior remote infections have responded well to clindamycin and requests prescription today. Plan for discharge with outpatient followup with PCP. Usual and customary discharge instructions were reviewed with the patient. HPI General Mode of arrival: ambulatory . Date/Time Provider Initiated Documentation: 02/04/23 11:16 . Limitations to Documentation: no limitations . Information obtained by: patient . HPI Narrative: 72yo male with history of left BKA here with chief complaint of skin rash. Patient notes was shoveling snow 2 days ago and thinks he may have irritated his amputation stump. He noticed blister of the stump the following day. He now has surrounding mild redness. No fever. Related Data Home Medications Medication Instructions Recorded Confirmed aspirin 81 mg chewable tablet 81 mg PO DAILY 12/25/16 02/04/23 (Aspirin Low-Strength) oxycodone 15 mg tablet 2 tab PO PRN PRN 03/29/17 02/04/23 cyanocobalamin (vitamin B-12) 1,000 mcg IJ DIRECTED 10/03/17 02/04/23 1,000 mcg/mL injection solution melatonin 3 mg tablet 10 mg PO HS PRN 11/10/17 02/04/23 lisinopril 2.5 mg tablet 2.5 mg PO DAILY 05/23/18 02/04/23 diphenhydramine 25 2 - 3 tab PO QHS PRN 08/20/19 02/04/23 mg-acetaminophen 500 mg tablet (Tylenol PM Extra Strength) pantoprazole 40 mg tablet,delayed 40 mg PO DAILY 01/06/20 02/04/23 release dulaglutide 0.75 mg/0.5 mL 0.75 mg subcut QWEEK 05/08/22 02/04/23 subcutaneous pen injector (Trulicity) cholecalciferol (vitamin D3) 50 50 mcg PO DAILY 09/05/22 02/04/23 mcg (2,000 unit) capsule ezetimibe 10 mg tablet (Zetia) 10 mg PO DAILY 09/05/22 02/04/23 gabapentin 300 mg capsule See Rx Instructions PO BID 09/14/22 02/04/23 glipizide 5 mg tablet 10 mg PO DAILY 09/14/22 02/04/23 insulin aspart U-100 100 unit/mL 1 sliding scale dose subcut 09/14/22 02/04/23 subcutaneous cartridge (Novolog .before meals PenFill U-100 Insulin aspart) insulin detemir U-100 100 unit/mL 74 unit subcut HS 09/14/22 02/04/23 subcutaneous solution (Levemir U-100 Insulin) metformin 850 mg tablet 850 mg PO ONCE 09/14/22 02/04/23 clindamycin HCl 150 mg capsule 450 mg (3 x 150 mg) PO TID #60 caps 02/04/23 docusate sodium 100 mg capsule 100 mg PO DAILY 02/04/23 02/04/23 (Colace) Previous Rx's Medication Instructions Recorded clindamycin HCl 150 mg capsule 450 mg (3 x 150 mg) PO TID #60 caps 02/04/23 Allergies Allergy/AdvReac Type Severity Reaction Status Date / Time levofloxacin Allergy Severe critical Verified 02/04/23 11:01 onion Allergy Severe raw onion Verified 02/04/23 11:01 Penicillins Allergy Severe Anaphylaxsi Verified 02/04/23 11:01 s Sulfa (Sulfonamide Allergy Severe Hives Verified 02/04/23 11:01 Antibiotics) sulfamethoxazole Allergy Severe Hives Verified 02/04/23 11:01 [From Bactrim] trimethoprim [From Bactrim] Allergy Severe Hives Verified 02/04/23 11:01 simvastatin AdvReac Severe faints Verified 02/04/23 11:01 General Stated Complaint: Cellulitis VIKRAM: 3 Review of Systems Constitutional Constitutional: Denies fever(s) Integumentary/Breasts Skin/Breast: Reports as per HPI PFSH All Active Problems Infection of amputation stump, left lower extremity (Acute) Leg edema (Acute) Type 2 diabetes mellitus (Acute) Vitamin D deficiency (Acute) Spinal stenosis (Acute) Sleep apnea (Acute) Peripheral neuropathy (Acute) Hyperlipidemia (Acute) Hearing loss (Acute) Current non-smoker but past smoking history unknown (Acute) Amputation of leg (Acute) L - 2005 Amputation of right foot (Acute) History of left below knee amputation (Acute) Diabetic polyneuropathy (Acute) Primary osteoarthritis of left shoulder (Chronic) Tinnitus, bilateral (Acute 05/16/17) Sensorineural hearing loss (SNHL) of both ears (Chronic 05/16/17) Medical History Biceps tendon rupture Hx of fall Change in bowel function Leg weakness Lightheadedness Rotator cuff tear arthropathy of right shoulder Rotator cuff tear arthropathy of left shoulder Impacted cerumen, right ear Infected sebaceous cyst of skin Weight gain Sebaceous cyst (~08/19/19) referral states Right anterior chest Rupture of right distal biceps tendon (~09/2018) Osteomyelitis Foot drop, right Diabetic foot ulcer Ulcer of foot Shoulder pain, left Calf pain Bronchitis Physical deconditioning Insomnia Skin irritation Abdominal pain DNR (do not resuscitate) Myalgia Balance problem B12 deficiency Dysphagia Partial tear of left rotator cuff Most recent injection: 06/30/19 S/P RTC repair by Dr. Jarrett September 2017 MRI from 02/2018 showed full-thickness re-tear supraspinatus and infraspinatus Cellulitis of right toe right 4th toe Impingement syndrome of left shoulder SURGERY 10/09/17 Other synovitis and tenosynovitis, left shoulder SURGERY 10/09/17 Complete rotator cuff tear of left shoulder SURGERY 10/09/17 Discharge planning issues DVT prophylaxis Amputated toe of right foot Acute appendicitis with localized peritonitis Hernia of anterior abdominal wall Surgical History History of transmetatarsal amputation of right foot History of colonoscopy H/O esophagogastroduodenoscopy (~06/09/18) History of spinal surgery Status post rotator cuff surgery Rotator Cuff Repair Repair of inguinal hernia Appendectomy (06/11/16) Amputation left below knee amputation Family History Mother CAD (coronary artery disease) Social History Smoking/Tobacco Use Status: Former Tobacco Use Quit Date: 02/18/17 Smoking risk assessment performed?: Yes Alcohol Intake: former Drug use: Never Substance use type: does not use Details: Pt states quit smoking 09/2017 Housing: house Current gender identity: male Do you feel safe at home: Yes Do you feel safe in your relationship?: Yes Exam Skin Other: left BKA stump with mild superficial blister and mild surrounding localized erythema; no induration or fluctuance Course Vital Signs Vital signs: Vital Signs Temperature 36.5 C 02/04/23 10:57 Pulse 72 02/04/23 10:57 Respiratory Rate 18 02/04/23 10:57 Blood Pressure 100/59 L 02/04/23 10:57 Pulse Oximetry 96 02/04/23 10:57 Temperature 36.5 C 02/04/23 10:57 Temperature Source Temporal Artery Scan 02/04/23 10:57 Pulse 72 02/04/23 10:57 Respiratory Rate 18 02/04/23 10:57 Respiratory Effort Normal, Non-Labored 02/04/23 11:02 Blood Pressure 100/59 L 02/04/23 10:57 Blood Pressure Position Sitting 02/04/23 10:57 Pulse Oximetry 96 02/04/23 10:57 Oxygen Delivery Method Room Air 02/04/23 10:57 Oxygen Flow Rate 0 02/04/23 10:57
[2023-02-04 13:04] VITALS: BP 100/59; PULSE 72; RESP 18; TEMP 36.5; O2SAT 96
== END 2023-02-04 13:08 | disposition home or self-care (01) ==
PROVIDERS: Emergency Provider Student in an Organized Health Care Education/Training Program; PCP Family Medicine
DX: T87.44 Infection of amputation stump, left lower extremity (principal); Z89.512 Acquired absence of left leg below knee
CPT/HCPCS: 99283; 99284

== ENCOUNTER 2023-02-09 11:55 | Emergency (ER) | payer MEDICARE, MEDICAID, SELFPAY ==
[2023-02-09 11:58] VITALS: BP 154/81; PULSE 54; RESP 18; TEMP 36.7; O2SAT 98
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
[2023-02-09] MEDS: Doxycycline Hyclate 100 MG CAP PO (12:23)
--- NOTE | 2023-02-12 09:38 | NUR.NOTE ---
Accessed Pt chart to identify the antibiotic prescribed to the patient. Noted on the speciman report.
== END 2023-02-09 12:25 | disposition home or self-care (01) ==
PROVIDERS: Emergency Provider Nurse Practitioner Family; PCP Family Medicine
DX: T87.44 Infection of amputation stump, left lower extremity (principal); E11.42 Type 2 diabetes mellitus with diabetic polyneuropathy; E78.5 Hyperlipidemia, unspecified; Z79.4 Long term (current) use of insulin; Z79.82 Long term (current) use of aspirin; Z79.84 Long term (current) use of oral hypoglycemic drugs; Z79.85 Long-term (current) use of injectable non-insulin antidiabetic drugs; Z89.512 Acquired absence of left leg below knee
CPT/HCPCS: 99283; 87070; 87205

== ENCOUNTER → 2023-06-20 04:05 | Outpatient (CLI) | payer MEDICARE, SELFPAY ==
--- NOTE | 2023-06-20 | DI.MRI_ITS ---
Exam(s) MR LUMBAR SPINE WO EXAM: MR LUMBAR SPINE WO CLINICAL HISTORY: ACUTE LOW BACK PAIN, M54.50, HX L4-5 LAMINECTOMY, ACUTE ON CHRONIC PAIN. TECHNIQUE: Multiplanar multisequence MRI of the Lumbar spine was performed. COMPARISON: FINDINGS: Bones: The last intervertebral disc space is designated the L5/S1 level for the numbering purpose of this ex amination. The vertebral body heights are well maintained. Alignment: Unremarkable. The marrow signal characteristics are unremarkable. Cord: The conus tip ends at the T12 level. It is of normal size and signal intensity. T12-L1: Mild disc bulging. Small endplate osteophytes. Mild bilateral neural foraminal narrowing. No focal disc herniation is present. No central spinal canal stenosis. L1-2:Mild concentric disc bulging. Facet degenerative changes. Moderate bilateral neural foraminal narrowing. No focal disc herniation is present. No central spinal canal stenosis. L2-3: Moderate loss of disc height. Broad-based disc bulging. facet degenerative changes. No focal disc herniation is present. Mild central spinal canal stenosis.Severe bilateral neural foraminal s tenosis. L3-4: L4 laminectomy. No broad-based disc bulging. Severe facet joint degenerative changes. Right-s ided facet cyst, measuring 12 x 6 millimeters. No focal disc herniation is present. Moderate centra l canal stenosis. Severe bilateral neural foraminal narrowing. L4-5:L4 laminectomy. Prominent facet degenerative changes. Mild spondylolisthesis. Mild disc bulgi ng. No focal disc herniation is present. No central spinal canal stenosis.Severe right and moderate left neural foraminal narrowing. L5-S1: Minimal disc bulging. No focal disc herniation is present. Facet degenerative changes. Mo derate bilateral neural foraminal narrowing. Mild central canal stenosis. The visualized SI joints and sacrum are unremarkable. Soft tissues: The paraspinal soft tissues are unremarkable. IMPRESSION: Multilevel degenerative disc changes and facet degenerative changes. Post surgical changes at L4-5. Findings greatest at L3-4 where there is moderate central canal stenosis and severe bilateral neural foraminal narrowing. No focal disc herniation. DATA REPOSITORY:
== END ==
PROVIDERS: PCP Family Medicine; Visit Provider Nurse Practitioner Family
DX: M51.37 Other intervertebral disc degeneration, lumbosacral region (principal)
CPT/HCPCS: 72148

== ENCOUNTER 2023-08-30 23:37 | Outpatient (REF) | payer MEDICARE, SELFPAY ==
[2023-08-30 18:59] LABS: ALT 28 U/L (16-63); AST 26 U/L (15-37); Albumin 4.1 g/dL (3.4-5.0); Alkaline Phosphatase 63 U/L (46-116); BUN 18 mg/dL (7-18); Bilirubin, Total 0.41 mg/dL (0.2-1.0); CREATININE 1.2 mg/dL (0.70-1.30); Calcium 9.2 mg/dL (8.5-10.1); Calculated LDL 122 mg/dL (<100); Chloride 109 mmol/L (98-107); Cholesterol 204 mg/dL (<200); Estimated GFR 64.25 (mL/min/1.73m2); Glucose 102 mg/dL (74-106); HDL Cholesterol 41 mg/dL (40-60); Potassium 5.4 mmol/L (3.5-5.1); Sodium 144 mmol/L (136-145); Total Protein 7.2 g/dL (6.4-8.2); Triglyceride 208 mg/dL (<150)
[2023-08-30 19:10] LABS: Creatine Kinase 165 U/L (39-308)
== END 2023-08-30 23:38 | disposition home or self-care (01) ==
LOC: NCHCN 23:37
PROVIDERS: PCP Family Medicine; Visit Provider Family Medicine
DX: E11.8 Type 2 diabetes mellitus with unspecified complications (principal); E78.5 Hyperlipidemia, unspecified
CPT/HCPCS: 80053; 80061; 82550

== ENCOUNTER 2023-10-20 15:27 | Inpatient (IN) | payer MEDICARE, SELFPAY ==
[2023-10-20] VITALS (56 sets, daily range): BP systolic 96–129; BP diastolic 48–72; PULSE 95–106; RESP 14–32; TEMP 36.5–37.7; O2SAT 88–95; BMI 34.9
--- NOTE | 2023-10-20 16:30 | DI.CT_ITS ---
Exam(s) CT ABDOMEN PELVIS W EXAM: CT ABDOMEN PELVIS W CLINICAL HISTORY: RUQ pain, fever. TECHNIQUE: Imaging Protocol: Axial computed tomography images with coronal and sagittal reformatted images were created and reviewed CONTRAST MATERIAL: Intravenous: Omnipaque-350 100cc Oral: None COMPARISON: CT CT ABDOMEN PELVIS W from 04/17/2019 FINDINGS: VISUALIZED LUNG BASES: Some interstitial disease is noted lung bases. There is some atelectasis in t he lingular segment of the left lung as well as in the left lower lobe, this corresponding to what is seen on chest x-ray earlier today. There are no pleural effusions. No pericardial effusion.. ABDOMEN: There is no ascites. LIVER: There are no focal hepatic lesions evident. No dilated intrahepatic ducts. GALLBLADDER/BILIARY: No gallbladder is grossly distended and edematous. There is streaking around th e gallbladder. There are no obvious radiopaque gallstones within the gallbladder lumen. Very subtle density noted in the region of the cystic duct (series 3/image 37) CBD is not dilated. There are no dilated intrahepatic ducts. PANCREAS: No evidence of pancreatic head mass nor mass elsewhere in the pancreas and no dilatation of the pancreatic duct. No peripancreatic fluid. SPLEEN: Spleen size is normal. There is again noted a lobulated hypodensity within the spleen which exhibits minimal if any significant change from CT scan of March 2019 and is probably a benign cys t. Splenic and portal veins are patent. ADRENALS: There are no significant adrenal masses. KIDNEYS:No cysts evident. No solid renal masses. No calculi nor hydronephrosis.. ABDOMINAL AORTA: The abdominal aorta is atherosclerotic and there is a fusiform infrarenal abdominal aortic aneurysm below the level the inferior mesenteric artery takeoff point, this exhibiting maximum diameter of 3.2 cm. The common iliac arteries are calcified and minimally prominent. LYMPH NODES:There is no retroperitoneal nor paraaortic adenopathy. ABDOMINAL WALL: No evidence of significant anterior abdominal wall nor inguinal hernia. There is tommy e thickening of the skin over both sides of anterior abdominal wall and mild subcutaneous streaking. Possibly related to injection sites versus is cellulitis. There is no drainable subcutaneous fluid collection. There is a left inguinal hernia which contains some fluid but no bowel loops. There is evidence of p revious surgery at this level. In addition, there is abnormal fluid within the ileo psoas bursa exte nding down almost to the level of the lesser trochanter of the left hip. GI: The hepatic flexure of the colon exhibits no thickening streaking. I suspect that this is relate d to the adjacent phlegm a davida findings in the abnormal gallbladder. PELVIS: GI: The appendix is surgically absent.Sigmoid diverticuli but no evidence of obvious acute sigmoid di verticulitis. LYMPH NODES: There is no intrapelvic nor inguinal adenopathy. REPRODUCTIVE: Prostate size normal. Seminal vesicles unremarkable. URINARY BLADDER: No calculi nor obvious masses evident OSSEOUS: No acute fractures. Evidence of previous surgery in the lower lumbar spine and there is an element of anterolisthesis of L4 upon L5 by approximately 1 cm. No pars defects at this level. IMPRESSION: 1. There is gross distention of the gallbladder with pericholecystic streaking. There are no obvious radiopaque calculi within the gallbladder lumen, realized limitations of CT as opposed to ultrasound for detecting the presence of gallstones in the gallbladder lumen. The CBD is not dilated and there are no dilated intrahepatic ducts. Suspect culprit acute pathology to be at the level of the cystic duct where there is a very small hyperdensity noted, possibly a small obstructing calculus. Recomme nd ultrasound at this time. 2. There is abnormal appearance of the wall of the adjacent hepatic flexure of the colon. This is mo st probably secondary to the adjacent gallbladder pathology, as opposed to intrinsic large bowel path ology.. 3. Appendix is surgically absent. 4. Stable cyst in the spleen. Other findings as above Report called by myself to ER following completion of this study 10/20/2023 RADIATION DOSE DELIVERED: 826.93mGy.cm Total DLP DATA REPOSITORY: All CT scans at this facility are submitted to the National Radiology Data Registry (NRDR) Dose Index Registry (DIR) with the [employer] ([employer]). RADIATION OPTIMIZATION: All CT scans at this facility use at least one of these dose optimization te chniques: automated exposure control; mA and/or kV adjustment per patient size (includes targeted exa ms where dose is matched to clinical indication); or iterative reconstruction.
--- NOTE | 2023-10-20 16:45 | DI.RAD_ITS ---
Exam(s) XR PORTABLE CHEST AP EXAM: XR PORTABLE CHEST AP CLINICAL HISTORY: fever. TECHNIQUE: 2D digital imaging was performed. COMPARISON: No exams were available for comparison FINDINGS: Single AP portable view. Less than optimal inspiratory effort. Heart size is upper normal. The mediastinum is not widened. There is platelike atelectasis mild infiltrate in left lung base. Visualized right lung is clear. N o obvious pleural effusions. No pulmonary edema. IMPRESSION: Platelike atelectasis versus infiltrate in the lower left lung field. Recommend nonportable PA and l ateral views when clinically possible. DATA REPOSITORY: RADIATION DOSE DELIVERED:
[2023-10-20 17:16] LABS: Lactate 1.3 mmol/L (0.6-1.4)
[2023-10-20] MEDS: MORPHine 4 MG/ML SYR IVP (17:25)
--- NOTE | 2023-10-20 17:26 | NUR.NOTE ---
Nursing Note: o2 trended down to 86% on room air following administration of morphine; started on 2lpm via supplemental o2 and oxygen titrated up to 92%. Provider aware.
[2023-10-20] MEDS: Normal Saline 1,000 ML 1000 ML IV (17:32)
[2023-10-20 17:37] LABS: ALT 197 U/L (16-63); AST 238 U/L (15-37); Albumin 3.4 g/dL (3.4-5.0); Alkaline Phosphatase 230 U/L (46-116); BUN 27 mg/dL (7-18); Bilirubin, Total 4.88 mg/dL (0.2-1.0); CREATININE 1.6 mg/dL (0.70-1.30); Chloride 103 mmol/L (98-107); Glucose 271 mg/dL (74-106); Lipase 23 U/L (16-77); Sodium 136 mmol/L (136-145); Total Protein 7.5 g/dL (6.4-8.2)
[2023-10-20 17:42] LABS: Calcium 9.2 mg/dL (8.5-10.1)
[2023-10-20 17:49] LABS: Abs Immature Grans 0.13 10^3/uL (0.0-0.06); Absolute Basophil Count 0.07 10^3/uL (0.0-0.2); Absolute Eosinophil Count 0.03 10^3/uL (0.0-0.7); Absolute Monocyte Count 1.15 10^3/uL (0.1-0.8); Basophils % 0.4 %; Eosinophils % 0.2 %; HGB 14.3 g/dL (13.5-17.5); Immature Grans % 0.8 %; Lymphocytes % 4.1 %; MCH 29.5 pg (27.0-33.0); MCHC 32.5 % (32.0-36.0); MCV 91 fL (80-95); MPV 10.3 fL (8.0-11.0); Neutrophils % 87.5 %; RBC 4.84 10^6/uL (4.36-5.78); RDW 13.4 % (11.8-14.1); RDW-SD 45.1 fL; WBC 16.49 10^3/uL (4.4-10.8)
[2023-10-20] MEDS: Normal Saline - Diluent 50 ML VIAL IJ (17:58)
[2023-10-20] MEDS: Omnipaque 350 MG/ML 100 ML BTL IJ (17:59)
[2023-10-20 18:08] LABS: Absolute Lymphocyte Count 0.68 10^3/uL (1.2-3.4); Absolute Neutrophil Count 14.43 10^3/uL (1.2-6.7); Platelet Count 748 10^3/uL (130-400)
[2023-10-20 19:07] LABS: COVID-19 PCR Negative (Negative); Influenza A PCR Negative (Negative); Influenza B PCR Negative (Negative); RSV PCR Negative (Negative)
[2023-10-20 19:09] LABS: Source Nasopharynx
[2023-10-20] MEDS: metroNIDAZOLE 500 MG/100 ML BAG 100 MG IVPB (19:43)
[2023-10-20] MEDS: cefTRIAXone 2 GM/50 ML BAG IVPB (19:43)
--- NOTE | 2023-10-20 19:58 | ANES.PREOP_ITS ---
General Info Date of Service Date Performed: 10/20/23 Height: 6 ft 1 in Weight: 120.202 kg Body Mass Index (BMI): 34.9 Surgical Procedure: Laparoscopic vs. Open Cholecystectomy Meds Allergies and Home Medications Allergies Allergy/AdvReac Type Severity Reaction Status Date / Time levofloxacin Allergy Severe critical Verified 10/20/23 15:33 onion Allergy Severe raw onion Verified 10/20/23 15:33 Penicillins Allergy Severe Anaphylaxsi Verified 10/20/23 15:33 s Sulfa (Sulfonamide Allergy Severe Hives Verified 10/20/23 15:33 Antibiotics) sulfamethoxazole (From Allergy Severe Hives Verified 10/20/23 15:33 Bactrim) trimethoprim (From Bactrim) Allergy Severe Hives Verified 10/20/23 15:33 simvastatin AdvReac Severe faints Verified 10/20/23 15:33 Home Medication ?Medication ?Instructions ?Recorded aspirin 81 mg chewable tablet 81 mg PO DAILY 12/25/16 (Aspirin Low-Strength) oxycodone 15 mg tablet 2 tab PO PRN PRN 03/29/17 cyanocobalamin (vitamin B-12) 1,000 mcg IJ DIRECTED 10/03/17 1,000 mcg/mL injection solution melatonin 3 mg tablet 10 mg PO HS PRN 11/10/17 lisinopril 2.5 mg tablet 2.5 mg PO DAILY 05/23/18 diphenhydramine 25 2 - 3 tab PO QHS PRN 08/20/19 mg-acetaminophen 500 mg tablet (Tylenol PM Extra Strength) pantoprazole 40 mg tablet,delayed 40 mg PO DAILY 01/06/20 release dulaglutide 0.75 mg/0.5 mL 0.75 mg subcut QWEEK 05/08/22 [facility] cholecalciferol (vitamin D3) 50 50 mcg PO DAILY 09/05/22 mcg (2,000 unit) capsule ezetimibe 10 mg tablet (Zetia) 10 mg PO DAILY 09/05/22 gabapentin 300 mg capsule See Rx Instructions PO BID 09/14/22 glipizide 5 mg tablet 10 mg PO DAILY 09/14/22 insulin aspart U-100 100 unit/mL 1 sliding scale dose subcut 09/14/22 subcutaneous cartridge (Novolog .before meals PenFill U-100 Insulin aspart) insulin detemir U-100 100 unit/mL 74 unit subcut HS 09/14/22 subcutaneous solution (Levemir U-100 Insulin) docusate sodium 100 mg capsule 100 mg PO DAILY 02/04/23 (Colace) Current Visit Medications: Current Medications Generic Name Dose Route Start Last Admin Trade Name Hector PRN Reason Stop Dose Admin Metronidazole 500 mg in 100 mls @ 100 mls/hr 10/20/23 19:22 10/20/23 19:43 Flagyl IVPB 10/20/23 20:21 100 mls/hr NOW ONE Administration Iohexol 100 ml 10/20/23 18:00 10/20/23 17:59 Omnipaque 350 Mg/Ml 100 Ml Btl IJ 11/19/23 23:59 100 ml DIRECTED HILLARY Administration Sodium Chloride 50 ml 10/20/23 18:00 10/20/23 17:58 Normal Saline - Diluent 50 Ml Vial IJ 50 ml .FOR DI USE HLILARY Administration PFSH Active Problems Active Problems: Problem Status Onset Code Leg edema Acute R60.0 Type 2 diabetes mellitus Acute E11.9 Vitamin D deficiency Acute E55.9 Spinal stenosis Acute M48.00 Sleep apnea Acute Peripheral neuropathy Acute G62.9 Hyperlipidemia Acute E78.5 Hearing loss Acute H91.90 Current non-smoker but past smoking history unknown Acute Z78.9 Amputation of leg Acute S88.919A Amputation of right foot Acute S98.911A History of left below knee amputation Acute Z89.512 Diabetic polyneuropathy Acute E11.42 Primary osteoarthritis of left shoulder Chronic M19.012 Tinnitus, bilateral Acute 05/16/17 H93.13 Sensorineural hearing loss (SNHL) of both ears Chronic 05/16/17 H90.3 Medical History Medical History Biceps tendon rupture Hx of fall Change in bowel function Leg weakness Lightheadedness Rotator cuff tear arthropathy of right shoulder Rotator cuff tear arthropathy of left shoulder Impacted cerumen, right ear Infected sebaceous cyst of skin Weight gain Sebaceous cyst (~08/19/19) referral states Right anterior chest Rupture of right distal biceps tendon (~09/2018) Osteomyelitis Foot drop, right Diabetic foot ulcer Ulcer of foot Shoulder pain, left Calf pain Bronchitis Physical deconditioning Insomnia Skin irritation Abdominal pain DNR (do not resuscitate) Myalgia Balance problem B12 deficiency Dysphagia Partial tear of left rotator cuff Most recent injection: 06/30/19 S/P RTC repair by Dr. Jarrett September 2017 MRI from 02/2018 showed full-thickness re-tear supraspinatus and infraspinatus Cellulitis of right toe right 4th toe Impingement syndrome of left shoulder SURGERY 10/09/17 Other synovitis and tenosynovitis, left shoulder SURGERY 10/09/17 Complete rotator cuff tear of left shoulder SURGERY 10/09/17 Discharge planning issues DVT prophylaxis Amputated toe of right foot Acute appendicitis with localized peritonitis Hernia of anterior abdominal wall Surgical History Surgical History History of transmetatarsal amputation of right foot History of colonoscopy H/O esophagogastroduodenoscopy (~06/09/18) History of spinal surgery Status post rotator cuff surgery Rotator Cuff Repair Repair of inguinal hernia Appendectomy (06/11/16) Amputation left below knee amputation Tobacco Smoking/Tobacco Use Status: Former Tobacco Use Alcohol Alcohol Intake: former Substance Use Substance use: Never Substance use type: does not use Details: Pt states quit smoking 09/2017 Vital Signs and Lab Results Vital Signs Most Recent Vital Signs in EMR: Most Recent Vital Signs Temp Pulse Resp BP Pulse Ox 37.7 C H 103 H 22 115/51 L 95 10/20/23 15:30 10/20/23 19:48 10/20/23 19:48 10/20/23 19:48 10/20/23 19:48 Lab Results 10/20/23 17:42 10/20/23 17:08 Blood Type / Crossmatch: 2 No Data to Display Complete Blood Count: 2 White Blood Count 16.49 10^3/uL (4.4-10.8) H 10/20/23 17:42 Red Blood Count 4.84 10^6/uL (4.36-5.78) 10/20/23 17:42 Hemoglobin 14.3 g/dL (13.5-17.5) 10/20/23 17:42 Hematocrit 44.0 % (40.0-50.0) 10/20/23 17:42 Platelet Count 748 10^3/uL (130-400) H 10/20/23 17:42 Venous Blood Lactate 1.3 mmol/L (0.6-1.4) 10/20/23 17:08 Complete Metabolic Panel: 2 Sodium 136 mmol/L (136-145) 10/20/23 17:08 Potassium 5.0 mmol/L (3.5-5.1) 10/20/23 17:08 Chloride 103 mmol/L (98-107) 10/20/23 17:08 Carbon Dioxide 22.0 mmol/L (21.0-32.0) 10/20/23 17:08 BUN 27 mg/dL (7-18) H 10/20/23 17:08 Creatinine 1.6 mg/dL (0.70-1.30) H 10/20/23 17:08 Est GFR (CKD-EPI 2020) 45.50 (mL/min/1.73m2) 10/20/23 17:08 Calcium 9.2 mg/dL (8.5-10.1) 10/20/23 17:08 Albumin 3.4 g/dL (3.4-5.0) 10/20/23 17:08 Glucose 271 mg/dL (74-106) H 10/20/23 17:08 Liver Function Panel: 2 Alanine Aminotransferase (ALT/SGPT) 197 U/L (16-63) H 10/20/23 17:08 Aspartate Amino Transf (AST/SGOT) 238 U/L (15-37) H 10/20/23 17 :08 Coagulation Panel: 2 No Data to Display Cardiac Panel: 2 No Data to Display Arterial Blood Gas: 2 No Data to Display Venous Blood Gas: 2 No Data to Display Pancreas Panel: 2 Lipase 23 U/L (16-77) 10/20/23 17:08 Thyroid Panel: 2 No Data to Display Infectious Disease: 2 Coronavirus (COVID-19)(PCR) Negative (Negative) 10/20/23 18:25 Coronavirus 2019 Source Nasopharynx 10/20/23 18:25 Influenza Virus Type A (PCR) Negative (Negative) 10/20/23 18:2 5 Influenza Virus Type B (PCR) Negative (Negative) 10/20/23 18:2 5 Respiratory Syncytial Virus (PCR) Negative (Negative) 10/20/23 18:25 Blood Cultures: 2 No Data to Display Toxicology Panel: 2 No Data to Display Imaging and Studies Imaging and Studies Study information below may be from another EMR and interpreted by another provider. Please see original notes in EMR for more complete details. EKG Summary: 08/26/19 Sinus rhythm...normal P axis, V-rate 60- 99 Borderline prolonged OR interval...OR >212, V-rate 50- 90 Posterior infarct, old Echocardiogram Summary: Echocardiogram DATE OF SERVICE: September 09, 2013. ____ IN PATIENT __X__ OUT-PATIENT ORDERING PHYSICIAN: Lilli Packer MD. HEIGHT: 6 FT 2 IN WEIGHT: 252 LBS BSA: 2.4 m2 Blood pressure 130/76. STUDY INDICATIONS: Leg edema. FINDINGS: LEFT VENTRICLE/LVEF: LVEF 65%. Normal size. Mild concentric LVH. RIGHT VENTRICLE: Normal size and function. AORTIC VALVE: Trileaflet. No aortic stenosis or insufficiency. MITRAL VALVE: No mitral stenosis or insufficiency. TRICUSPID VALVE: Mild tricuspid insufficiency. RSV/PA/RIGHT ATRIAL PRESSURE: PULMONIC VALVE: Mild to moderate pulmonic insufficiency. No stenosis. ATRIA: Left atrium, right atrium within normal limits. DIASTOLIC INDICES: Pulmonic valve: E/A ratio less than 1. Deceleration time greater than 240 milliseconds. E-prime velocity approximately 8 cm per second. E/E prime ratio less than 15. GREAT VESSELS: The inferior vena cava is not visualized. The aortic root is mildly dilated at 4.1 cm. The ascending aorta is not measured. PERICARDIUM: No effusion. Rhythm: Sinus. SUMMARY: Conclusion: Normal biventricular size and systolic function. LVH. Diastolic indices appear abnormal and suggest stage I diastolic dysfunction. 1- 2+ PI. Pulmonary pressure is not assessable. Atrial size within normal limits. No prior studies. Anesthesia Assessment and Plan Anesthesia History Personal History: No History of Anesthesia Complications Family History: No Family History of Anesthesia Complications Exercise Tolerance Exercise Tolerance: Metabolic Equivalents<4 Pertinent Negatives Pertinent Negatives: No Major Cardiovascular Symptoms or Complaints, No Major Pulmonary Symptoms or Complaints and No History of CVA/TIA Cardiac & Pulmonary Exam Cardiac Exam: Normal S1/S2 Heart Sounds Pulmonary Exam: Clear Bilateral Breath Sounds Implantable Cardiac Device Does patient have a Pacemaker or an ICD?: No Airway Exam Known Difficult Airway: No Mallampati Class: 3 Mouth Opening: Normal (> 3cm) Thyromental Distance: Greater than 3 cm Neck Range of Motion: Full ROM Neck Circumference: Normal Teeth Condition: Generalized Poor Dentition (many missing, saw dentist recently, whats left is secure) ASA Classification ASA Score: ASA 3 Emergency Case?: Yes NPO Status NPO Status: NPO Clears >2 hours, Solids >8 hours Anesthesia Plan Resuscitation Status: Full Code Anesthesia Technique: General Anesthesia Airway Planned: Endotracheal Tube Monitors Used: Standard Monitors Preoperative Comments:: Preop blood sugar 271, have asked ER to treat. 6 U SQ given see APR
--- NOTE | 2023-10-20 20:18 | W.PM.HP.N ---
Date of service: 10/20/23 Time of Service: 20:18 Assessment and Plan Assessment and plan (1) Acute cholecystitis: Status: Acute Assessment and plan: Suhail has acute cholecystitis. Bilirubin level is elevated, but the gallbladder was extremely distended, and I suspect that is resulting in some cholestasis. At this point, with a leukocytosis of 17,000 and significant tenderness, I think expeditious cholecystectomy is in his best interest. Obviously would be nice to clear the duct prior to this, but at the very least obtaining source control from the gallbladder should help improve the situation. If were not able to interrogate the duct intraoperatively, then we will plan to trend the LFTs after the gallbladder is out. I explained the risks of the operation to Suhail, and I think he has a very good understanding of this. We also reviewed what to expect in terms of recovery and the possible need for an open operation. Suhail is able to provide informed consent, or making arrangements to get to the operating room soon as possible. He is already been started on antibiotics, and we can administer some insulin to help improve his glucose as well. History of Present Illness History of Present Illness Chief Complaint: Abdominal pain Narrative: Suhail is 72 years old. He started noticing some mid epigastric abdominal discomfort, that did radiate towards the right side usually associated with food about 3 days ago. It first, he thought he may have pulled a muscle, or just had some mild infection. Throughout the course of today, however, it has become increasingly pain to the point where is not even able to stand up and walk around. He denies any nausea or vomiting. In the emergency department, is found of a white blood cell count around 16,000. Liver function tests were abnormal, and he had elevated bilirubin as well. No evidence of any increased lipase. He underwent a CT of the abdomen and pelvis demonstrated a massively distended gallbladder with pericholecystic fluid and stranding consistent with acute cholecystitis. Other past medical history is most significant for diabetes. He also reports a history of diverticulitis. Past surgical history significant for appendectomy, umbilical hernia repair, inguinal hernia repair Review of Systems Constitutional Constitutional: Denies body ache(s), Reports fatigue, Denies fever(s) and Reports poor appetite Eyes Eyes: Reports system reviewed and no additional complaints, except as documented ENT Ears, Nose, Mouth, and Throat: Reports system reviewed and no additional complaints, except as documented Cardiovascular Cardiovascular: Denies chest pain and Denies dyspnea Respiratory Respiratory: Denies chest congestion, Denies cough and Denies dyspnea Gastrointestinal Gastrointestinal: Reports abdominal pain, Reports bloating, Denies nausea and Denies vomiting Musculoskeletal Musculoskeletal: Reports abnormal gait (Secondary to pain, history left lower extremity amputation) Neurologic Neurologic: Reports abnormal gait (Secondary to pain, history left lower extremity amputation) Psychiatric Psychiatric: Reports system reviewed and no additional complaints, except as documented Endocrine Endocrine: Reports fatigue Hematologic/Lymphatic Hematologic/Lymphatic: Denies easy bleeding and Denies easy bruising PFSH All Active Problems (Updated 10/20/23 @ 22:04 by GARFIELD Worley) Elevated bilirubin (Acute) Elevated transaminase level (Acute) Acute hyperglycemia (Acute) SCAR (acute kidney injury) (Acute) Acute cholecystitis (Acute) Leg edema (Acute) Type 2 diabetes mellitus (Acute) Vitamin D deficiency (Acute) Spinal stenosis (Acute) Sleep apnea (Acute) Peripheral neuropathy (Acute) Hyperlipidemia (Acute) Hearing loss (Acute) Current non-smoker but past smoking history unknown (Acute) Amputation of leg (Acute) L - 2006 Amputation of right foot (Acute) History of left below knee amputation (Acute) Diabetic polyneuropathy (Acute) Primary osteoarthritis of left shoulder (Chronic) Tinnitus, bilateral (Acute 05/16/17) Sensorineural hearing loss (SNHL) of both ears (Chronic 05/16/17) Medical History Biceps tendon rupture Hx of fall Change in bowel function Leg weakness Lightheadedness Rotator cuff tear arthropathy of right shoulder Rotator cuff tear arthropathy of left shoulder Impacted cerumen, right ear Infected sebaceous cyst of skin Weight gain Sebaceous cyst (~08/19/19) referral states Right anterior chest Rupture of right distal biceps tendon (~09/2018) Osteomyelitis Foot drop, right Diabetic foot ulcer Ulcer of foot Shoulder pain, left Calf pain Bronchitis Physical deconditioning Insomnia Skin irritation Abdominal pain DNR (do not resuscitate) Myalgia Balance problem B12 deficiency Dysphagia Partial tear of left rotator cuff Most recent injection: 06/30/19 S/P RTC repair by Dr. Jarrett September 2017 MRI from 02/2018 showed full-thickness re-tear supraspinatus and infraspinatus Cellulitis of right toe right 4th toe Impingement syndrome of left shoulder SURGERY 10/09/17 Other synovitis and tenosynovitis, left shoulder SURGERY 10/09/17 Complete rotator cuff tear of left shoulder SURGERY 10/09/17 Discharge planning issues DVT prophylaxis Amputated toe of right foot Acute appendicitis with localized peritonitis Hernia of anterior abdominal wall Surgical History History of transmetatarsal amputation of right foot History of colonoscopy H/O esophagogastroduodenoscopy (~06/09/18) History of spinal surgery Status post rotator cuff surgery Rotator Cuff Repair Repair of inguinal hernia Appendectomy (06/11/16) Amputation left below knee amputation Family History Mother CAD (coronary artery disease) Social History Smoking/Tobacco Use Status: Former Tobacco Use Quit Date: 02/18/17 Smoking risk assessment performed?: Yes Alcohol Intake: former Drug use: Never Substance use type: does not use Details: Pt states quit smoking 09/2017 Housing: house Current gender identity: male Do you feel safe at home: Yes Do you feel safe in your relationship?: Yes Meds Allergies and Home Medications Allergies Allergy/AdvReac Type Severity Reaction Status Date / Time levofloxacin Allergy Severe critical Verified 10/20/23 15:33 onion Allergy Severe raw onion Verified 10/20/23 15:33 Penicillins Allergy Severe Anaphylaxsi Verified 10/20/23 15:33 s Sulfa (Sulfonamide Allergy Severe Hives Verified 10/20/23 15:33 Antibiotics) sulfamethoxazole (From Allergy Severe Hives Verified 10/20/23 15:33 Bactrim) trimethoprim (From Bactrim) Allergy Severe Hives Verified 10/20/23 15:33 simvastatin AdvReac Severe faints Verified 10/20/23 15:33 Home Medications ?Medication ?Instructions ?Recorded ?Confirmed ?Type aspirin 81 mg chewable tablet 81 mg PO DAILY 12/25/16 10/20/23 History (Aspirin Low-Strength) oxycodone 15 mg tablet 2 tab PO PRN PRN 03/29/17 10/20/23 History cyanocobalamin (vitamin B-12) 1,000 mcg IJ DIRECTED 10/03/17 10/20/23 History 1,000 mcg/mL injection solution melatonin 3 mg tablet 10 mg PO HS PRN 11/10/17 10/20/23 History lisinopril 2.5 mg tablet 2.5 mg PO DAILY 05/23/18 10/20/23 History diphenhydramine 25 2 - 3 tab PO QHS PRN 08/20/19 10/20/23 History mg-acetaminophen 500 mg tablet (Tylenol PM Extra Strength) pantoprazole 40 mg tablet,delayed 40 mg PO DAILY 01/06/20 10/20/23 History release dulaglutide 0.75 mg/0.5 mL 0.75 mg subcut QWEEK 05/08/22 10/20/23 History subcutaneous pen injector (Trulicity) cholecalciferol (vitamin D3) 50 50 mcg PO DAILY 09/05/22 10/20/23 History mcg (2,000 unit) capsule ezetimibe 10 mg tablet (Zetia) 10 mg PO DAILY 09/05/22 10/20/23 History gabapentin 300 mg capsule See Rx Instructions PO BID 09/14/22 10/20/23 History glipizide 5 mg tablet 10 mg PO DAILY 09/14/22 10/20/23 History insulin aspart U-100 100 unit/mL 1 sliding scale dose subcut 09/14/22 10/20/23 History subcutaneous cartridge (Novolog .before meals PenFill U-100 Insulin aspart) insulin detemir U-100 100 unit/mL 74 unit subcut HS 09/14/22 10/20/23 History subcutaneous solution (Levemir U-100 Insulin) docusate sodium 100 mg capsule 100 mg PO DAILY 02/04/23 10/20/23 History (Colace) Exam Const General: cooperative and comfortable Nutritional Appearance: obese Orientation: alert, awake and oriented x3 Eyes General: appearance normal, both eyes and all related structures Neck Neck: normal visual inspection, full ROM and no lymphadenopathy Resp Effort & Inspection: normal respiratory effort Auscultation: clear to auscultation bilaterally, no crackles and no wheezes Cardio Jugular venous pressure: no JVD Rate: regular rate Rhythm: regular rhythm Heart Sounds: S1 normal and S2 normal GI Inspection: distended and large pannus Palpation: guarding (Right upper quadrant), no hernias and tender (Right upper quadrant) Percussion: normal to percussion Results Labs 10/20/23 17:42 10/20/23 17:08 Labs: Laboratory Results - last 24 hr 10/20/23 10/20/23 10/20/23 17:08 17:42 18:25 WBC 16.49 H RBC 4.84 Hgb 14.3 Hct 44.0 MCV 91 MCH 29.5 MCHC 32.5 RDW 13.4 Plt Count 748 H MPV 10.3 Immature Gran % 0.8 Neutrophils % 87.5 Lymphocytes % 4.1 Monocytes % 7.0 Eosinophils % 0.2 Basophils % 0.4 Nucleated RBC % 0.0 Absolute Neutrophils 14.43 H Absolute Lymphocytes 0.68 L Absolute Monocytes 1.15 H Absolute Eosinophils 0.03 Absolute Basophils 0.07 VBG Lactate 1.3 Sodium 136 Potassium 5.0 Chloride 103 Carbon Dioxide 22.0 Anion Gap 11.0 BUN 27 H Creatinine 1.6 H Est GFR (CKD-EPI 2020) 45.50 Glucose 271 H Calcium 9.2 Total Bilirubin 4.88 H AST 238 H ALT 197 H Alkaline Phosphatase 230 H Total Protein 7.5 Albumin 3.4 Lipase 23 COVID-19 Source Nasopharynx SARS-CoV-2 (PCR) Negative Influenza Type A (PCR) Negative Influenza Type B (PCR) Negative RSV (PCR) Negative Last Vital Signs Temp 99.9 F H 10/20/23 15:30 Pulse 103 H 10/20/23 19:48 Resp 22 10/20/23 19:48 BP 115/51 L 10/20/23 19:48 Pulse Ox 95 10/20/23 19:48 Time Spent Time spent with Patient: >75 minutes Time was spent: preparing to see the patient(eg.review tests), obtaining and/or reviewing separately otained hiistory, referring, communicating with other health ocular care technician, indepentently interpreting results, counseling the patient and care coordination
[2023-10-20 20:43] LABS: Bilirubin Large (Negative); Blood Negative (Negative); Clarity Clear (Clear); Glucose 500 mg/dL (Negative); Ketones 15 mg/dL (Negative); Leukocyte Esterase Negative (Negative); Nitrite Negative (Negative); Urobilinogen >=8.0 mg/dL (Up to 0.2)
[2023-10-20 20:57] LABS: Bacteria Negative HPF (Negative); C & S Indicated? No; Casts 0-2 Hyaline LPF (Negative); Crystals Rare Amorphous HPF (Negative); Epithelial Cells Rare HPF (Negative); Mucus Trace (Negative); Other Cells Rare Renal (Negative); RBC Negative HPF (0-2); WBC 0-2 HPF (0-5)
[2023-10-20] MEDS: Insulin REGULAR-Human 100 UNITS/ML UNIT SC (21:04)
[2023-10-20] MEDS: Lactated Ringers 1,000 ML 30 ML IV (21:04)
[2023-10-20] MEDS: Indocyanine green 25 MG VIAL 5 MG IVP (21:35)
[2023-10-20] MEDS: Bupivacaine 0.25% Pres-Free W/EPI 30 ML VIAL (21:45)
--- NOTE | 2023-10-20 21:50 | W.ED.GENAD ---
Discharge Plan Disposition Patient Disposition: Admit to [facility] Discharge Details Chief Complaint: Abd Prob Clinical Impression: Acute cholecystitis, Type 2 diabetes mellitus, SCAR (acute kidney injury), Acute hyperglycemia, Elevated transaminase level, Elevated bilirubin Attending Provider: Lamont Siu Primary Care Provider: Lilli Packer V ED Provider: Adrianna Vázquez HPI General Date/Time Provider Initiated Documentation: 10/20/23 15:34. HPI Narrative: This 72-year-old gentleman with history of diabetes, peripheral neuropathy, spinal stenosis, presents with report admitted right upper quadrant pain which started several days ago. He states initially it was intermittent but now is constant. He is felt nauseous morning and has had normal bowel movements per patient. States he is concerned because his blood sugar was slightly elevated just prior to arrival. Denies fever or chills per patient. Denies weakness or dizziness. Related Data Home Medications ?Medication ?Instructions ?Recorded ?Confirmed aspirin 81 mg chewable tablet 81 mg PO DAILY 12/25/16 10/20/23 (Aspirin Low-Strength) oxycodone 15 mg tablet 2 tab PO PRN PRN 03/29/17 10/20/23 cyanocobalamin (vitamin B-12) 1,000 mcg IJ DIRECTED 10/03/17 10/20/23 1,000 mcg/mL injection solution melatonin 3 mg tablet 10 mg PO HS PRN 11/10/17 10/20/23 lisinopril 2.5 mg tablet 2.5 mg PO DAILY 05/23/18 10/20/23 diphenhydramine 25 2 - 3 tab PO QHS PRN 08/20/19 10/20/23 mg-acetaminophen 500 mg tablet (Tylenol PM Extra Strength) pantoprazole 40 mg tablet,delayed 40 mg PO DAILY 01/06/20 10/20/23 release dulaglutide 0.75 mg/0.5 mL 0.75 mg subcut QWEEK 05/08/22 10/20/23 subcutaneous pen injector ([facility]) cholecalciferol (vitamin D3) 50 50 mcg PO DAILY 09/05/22 10/20/23 mcg (2,000 unit) capsule ezetimibe 10 mg tablet (Zetia) 10 mg PO DAILY 09/05/22 10/20/23 gabapentin 300 mg capsule See Rx Instructions PO BID 09/14/22 10/20/23 glipizide 5 mg tablet 10 mg PO DAILY 09/14/22 10/20/23 insulin aspart U-100 100 unit/mL 1 sliding scale dose subcut 09/14/22 10/20/23 subcutaneous cartridge (Novolog .before meals PenFill U-100 Insulin aspart) insulin detemir U-100 100 unit/mL 74 unit subcut HS 09/14/22 10/20/23 subcutaneous solution (Levemir U-100 Insulin) docusate sodium 100 mg capsule 100 mg PO DAILY 02/04/23 10/20/23 (Colace) Allergies Allergy/AdvReac Type Severity Reaction Status Date / Time levofloxacin Allergy Severe critical Verified 10/20/23 15:33 onion Allergy Severe raw onion Verified 10/20/23 15:33 Penicillins Allergy Severe Anaphylaxsi Verified 10/20/23 15:33 s Sulfa (Sulfonamide Allergy Severe Hives Verified 10/20/23 15:33 Antibiotics) sulfamethoxazole (From Allergy Severe Hives Verified 10/20/23 15:33 Bactrim) trimethoprim (From Bactrim) Allergy Severe Hives Verified 10/20/23 15:33 simvastatin AdvReac Severe faints Verified 10/20/23 15:33 General Stated Complaint: Abd Prob VIKRAM: 3 Exam Narrative Exam Narrative: Chronically unwell appearing 72-year-old gentleman presenting with right upper quadrant pain and guarding. No CVA tenderness, no abdominal bruit or pulsatile mass. Distal pulse intact to right lower extremity, prostatic leg noted to left lower extremity, distal pulses intact to bilateral upper extremities, cardiac rate rhythm regular, lungs clear to auscultation Course Vital Signs Vital signs: Vital Signs Temperature 37.7 C H 10/20/23 15:30 Pulse 101 H 10/20/23 15:30 Respiratory Rate 14 10/20/23 15:30 Blood Pressure 102/57 L 10/20/23 15:30 Pulse Oximetry 92 10/20/23 15:30 Temperature 37.0 C 10/20/23 21:06 Temperature Source Tympanic 10/20/23 21:06 Pulse 106 H 10/20/23 21:06 Respiratory Rate 23 10/20/23 21:06 Respiratory Effort Normal 10/20/23 18:15 Blood Pressure 100/72 10/20/23 21:06 Blood Pressure Position Supine 10/20/23 21:06 Pulse Oximetry 91 L 10/20/23 21:06 Oxygen Delivery Method Nasal Cannula 10/20/23 21:06 Oxygen Flow Rate 2 10/20/23 21:06 Pain Level 6 10/20/23 21:06 Lab/Test Results Lab/Test Results: 10/20/23 17:42 Blood Blood Culture - Pending Laboratory Tests Range/Units 10/20/23 10/20/23 10/20/23 17:08 17:42 18:25 WBC (4.4-10.8) 10^3/uL 16.49 H RBC (4.36-5.78) 10^6/uL 4.84 Hgb (13.5-17.5) g/dL 14.3 Hct (40.0-50.0) % 44.0 MCV (80-95) fL 91 MCH (27.0-33.0) pg 29.5 MCHC (32.0-36.0) % 32.5 RDW (11.8-14.1) % 13.4 Plt Count (130-400) 10^3/uL 748 H MPV (8.0-11.0) fL 10.3 Immature Gran % % 0.8 Neutrophils % % 87.5 Lymphocytes % % 4.1 Monocytes % % 7.0 Eosinophils % % 0.2 Basophils % % 0.4 Nucleated RBC % (0.0-0.3) % 0.0 Absolute Neutrophils (1.2-6.7) 10^3/uL 14.43 H Absolute Lymphocytes (1.2-3.4) 10^3/uL 0.68 L Absolute Monocytes (0.1-0.8) 10^3/uL 1.15 H Absolute Eosinophils (0.0-0.7) 10^3/uL 0.03 Absolute Basophils (0.0-0.2) 10^3/uL 0.07 VBG Lactate (0.6-1.4) mmol/L 1.3 Sodium (136-145) mmol/L 136 Potassium (3.5-5.1) mmol/L 5.0 Chloride (98-107) mmol/L 103 Carbon Dioxide (21.0-32.0) mmol/L 22.0 Anion Gap (3-11) mmol/L 11.0 BUN (7-18) mg/dL 27 H Creatinine (0.70-1.30) mg/dL 1.6 H Est GFR (CKD-EPI 2020) (mL/min/1.73m2) 45.50 Glucose (74-106) mg/dL 271 H Calcium (8.5-10.1) mg/dL 9.2 Total Bilirubin (0.2-1.0) mg/dL 4.88 H AST (15-37) U/L 238 H ALT (16-63) U/L 197 H Alkaline Phosphatase (46-116) U/L 230 H Total Protein (6.4-8.2) g/dL 7.5 Albumin (3.4-5.0) g/dL 3.4 Lipase (16-77) U/L 23 Urine Color (Yellow) Urine Clarity (Clear) Urine pH (5-8) Ur Specific Reva (1.005-1.025) Urine Protein (Neg-Trace) mg/dL Urine Ketones (Negative) mg/dL Urine Blood (Negative) Urine Nitrite (Negative) Urine Bilirubin (Negative) Urine Urobilinogen (Up to 0.2) mg/dL Ur Leukocyte Esterase (Negative) Urine RBC (0-2) HPF Urine WBC (0-5) HPF Ur Epithelial Cells (Negative) HPF Urine Crystals (Negative) HPF Urine Bacteria (Negative) HPF Urine Casts (Negative) LPF Urine Mucus (Negative) Urine Other (Negative) Ur Culture Indicated? Urine Glucose (Negative) mg/dL COVID-19 Source Nasopharynx SARS-CoV-2 (PCR) (Negative) Negative Influenza Type A (PCR) (Negative) Negative Influenza Type B (PCR) (Negative) Negative RSV (PCR) (Negative) Negative Range/Units 10/20/23 20:37 WBC (4.4-10.8) 10^3/uL RBC (4.36-5.78) 10^6/uL Hgb (13.5-17.5) g/dL Hct (40.0-50.0) % MCV (80-95) fL MCH (27.0-33.0) pg MCHC (32.0-36.0) % RDW (11.8-14.1) % Plt Count (130-400) 10^3/uL MPV (8.0-11.0) fL Immature Gran % % Neutrophils % % Lymphocytes % % Monocytes % % Eosinophils % % Basophils % % Nucleated RBC % (0.0-0.3) % Absolute Neutrophils (1.2-6.7) 10^3/uL Absolute Lymphocytes (1.2-3.4) 10^3/uL Absolute Monocytes (0.1-0.8) 10^3/uL Absolute Eosinophils (0.0-0.7) 10^3/uL Absolute Basophils (0.0-0.2) 10^3/uL VBG Lactate (0.6-1.4) mmol/L Sodium (136-145) mmol/L Potassium (3.5-5.1) mmol/L Chloride (98-107) mmol/L Carbon Dioxide (21.0-32.0) mmol/L Anion Gap (3-11) mmol/L BUN (7-18) mg/dL Creatinine (0.70-1.30) mg/dL Est GFR (CKD-EPI 2020) (mL/min/1.73m2) Glucose (74-106) mg/dL Calcium (8.5-10.1) mg/dL Total Bilirubin (0.2-1.0) mg/dL AST (15-37) U/L ALT (16-63) U/L Alkaline Phosphatase (46-116) U/L Total Protein (6.4-8.2) g/dL Albumin (3.4-5.0) g/dL Lipase (16-77) U/L Urine Color (Yellow) [place] Urine Clarity (Clear) Clear Urine pH (5-8) 5.0 Ur Specific Reva (1.005-1.025) 1.010 Urine Protein (Neg-Trace) mg/dL 100 H Urine Ketones (Negative) mg/dL 15 H Urine Blood (Negative) Negative Urine Nitrite (Negative) Negative Urine Bilirubin (Negative) Large H Urine Urobilinogen (Up to 0.2) mg/dL >=8.0 H Ur Leukocyte Esterase (Negative) Negative Urine RBC (0-2) HPF Negative Urine WBC (0-5) HPF 0-2 Ur Epithelial Cells (Negative) HPF Rare Urine Crystals (Negative) HPF Rare Amorphous Urine Bacteria (Negative) HPF Negative Urine Casts (Negative) LPF 0-2 Hyaline Urine Mucus (Negative) Trace Urine Other (Negative) Rare Renal Ur Culture Indicated? No Urine Glucose (Negative) mg/dL 500 H COVID-19 Source SARS-CoV-2 (PCR) (Negative) Influenza Type A (PCR) (Negative) Influenza Type B (PCR) (Negative) RSV (PCR) (Negative) Medical Decision Making Chronically unwell appearing 72-year-old gentleman presenting with right upper quadrant pain, leukocytosis, elevated bilirubin at 4.88, AST of 238, and ALT of 197. Lipase within normal limits. Glucose of 271, given 5 units of insulin after recheck of 250. No DKA. Patient is allergic to penicillin, he was given ceftriaxone and Flagyl, he was given 1 L of normal saline. Blood pressure is on the low end of normal but has been consistent mouth within normal limits. Patient had an EKG that did not show evidence of ischemia or injury. Troponin within normal limits. Case discussed with Dr. Siu, surgery who will take patient to the operating room at this time. Lactate within normal limits, 1 set of blood cultures obtained. Creatinine 1.6 likely secondary to dehydration. BUN of 27. No evidence of diabetic ketoacidosis, urinalysis pending at this time. Platelets 748, this will need to be rechecked. Alk phos of 230. Quality:[facility] Health Related Social Needs: No Data to Display Critical Care Time Critical Care Time Attestation: Personally 35 minutes of critical care time secondary to acute cholecystitis meeting sepsis criteria initiation of antibiotics, fluids, IV Tylenol for fever control, diagnostic imaging interpretation and review, discussion with radiologist, telemetry monitoring, admission to the hospital, surgical consultation [facility] All Active Problems (Updated 10/20/23 @ 22:04 by GARFIELD Worley) Elevated bilirubin (Acute) Elevated transaminase level (Acute) Acute hyperglycemia (Acute) CSAR (acute kidney injury) (Acute) Acute cholecystitis (Acute) Leg edema (Acute) Type 2 diabetes mellitus (Acute) Vitamin D deficiency (Acute) Spinal stenosis (Acute) Sleep apnea (Acute) Peripheral neuropathy (Acute) Hyperlipidemia (Acute) Hearing loss (Acute) Current non-smoker but past smoking history unknown (Acute) Amputation of leg (Acute) L - 2005 Amputation of right foot (Acute) History of left below knee amputation (Acute) Diabetic polyneuropathy (Acute) Primary osteoarthritis of left shoulder (Chronic) Tinnitus, bilateral (Acute 05/16/17) Sensorineural hearing loss (SNHL) of both ears (Chronic 05/16/17) Medical History Biceps tendon rupture Hx of fall Change in bowel function Leg weakness Lightheadedness Rotator cuff tear arthropathy of right shoulder Rotator cuff tear arthropathy of left shoulder Impacted cerumen, right ear Infected sebaceous cyst of skin Weight gain Sebaceous cyst (~08/19/19) referral states Right anterior chest Rupture of right distal biceps tendon (~09/2018) Osteomyelitis Foot drop, right Diabetic foot ulcer Ulcer of foot Shoulder pain, left Calf pain Bronchitis Physical deconditioning Insomnia Skin irritation Abdominal pain DNR (do not resuscitate) Myalgia Balance problem B12 deficiency Dysphagia Partial tear of left rotator cuff Most recent injection: 06/30/19 S/P RTC repair by Dr. Jarrett September 2017 MRI from 02/2018 showed full-thickness re-tear supraspinatus and infraspinatus Cellulitis of right toe right 4th toe Impingement syndrome of left shoulder SURGERY 10/09/17 Other synovitis and tenosynovitis, left shoulder SURGERY 10/09/17 Complete rotator cuff tear of left shoulder SURGERY 10/09/17 Discharge planning issues DVT prophylaxis Amputated toe of right foot Acute appendicitis with localized peritonitis Hernia of anterior abdominal wall Surgical History History of transmetatarsal amputation of right foot History of colonoscopy H/O esophagogastroduodenoscopy (~06/09/18) History of spinal surgery Status post rotator cuff surgery Rotator Cuff Repair Repair of inguinal hernia Appendectomy (06/11/16) Amputation left below knee amputation Family History Mother CAD (coronary artery disease) Social History Smoking/Tobacco Use Status: Former Tobacco Use Quit Date: 02/18/17 Smoking risk assessment performed?: Yes Alcohol Intake: former Drug use: Never Substance use type: does not use Details: Pt states quit smoking 09/2017 Housing: house Current gender identity: male Do you feel safe at home: Yes Do you feel safe in your relationship?: Yes
[2023-10-20] MEDS: Insulin REGULAR-Human 100 UNITS/ML UNIT (22:06)
--- NOTE | 2023-10-20 22:50 | GB_PTH ---
PATIENT: Suhail Galeano LOC: U#:[id number] AGE/SX: 72/M ROOM: RE10/21/[address]: Lamont Siu MD : 1950 BED: A DIS: 10/24/2023 SPEC #: [id number] RECD: 10/22/23 12:41 STATUS: GLENDA REQ #: [id number] DONNIE: 10/20/23 22:[address]: Lamont Siu DEPT: Surgical Specimen RECD BY: Adrianna Carver ENTERED: 10/22/23 12:41 SP TYPE: GB OTHR DR: Lilli Packer Tissues: 1 - GALLBLADDER Procedures: GROSS AND MICRO LEVEL 3 Comments: [id number]
[2023-10-20] MEDS: Bupivacaine LIPOSOME/PF 133 MG/10 ML VIAL IJ (23:29)
--- NOTE | 2023-10-20 23:55 | W.PM.OP ---
Date of service: 10/20/23 Time of Service: 23:55 Operative Note Operative Note DATE OF PROCEDURE: 10/20/23 PRE-OP DIAGNOSIS: Acute cholecystitis POST-OP DIAGNOSIS: other (Gangrenous cholecystitis) PROCEDURE: Laparoscopic converted to open subtotal cholecystectomy SURGEON: Lamont Siu SOFA COVER INSPECTOR: Bernice Sandoval ANESTHESIA TYPE: Local By Surgeon and General LMA/ETT Refer to Anesthesia Record ESTIMATED BLOOD LOSS: 250 PATHOLOGY: other (Gallbladder) COMPLICATIONS: None Patient's condition: stable Indications: Suhail is a 72-year-old male with acute cholecystitis and signs of sepsis Findings: Gangrenous cholecystitis Procedure Description: I met with Suhail 1 last time in the preoperative area and reviewed the plan for surgery, as well as the risks and benefits once again. He had another chance to ask any questions he might have. He provided informed consent, we moved back to the OR. He was assisted onto the operating room table and padded and supported appropriately. General endotracheal anesthesia was induced. Next, using aseptic technique, I inserted a Mckeon urinary catheter. I then prepped and draped the anterior abdominal wall. I started with a 5 mm incision in the supra umbilical position. I dissected down to the fascia, then gained entry into the peritoneum using a 5 mm optical viewing port under the direct vision of the laparoscope. Peritoneal cavity was insufflated. The greater omentum appeared to be adherent to the right upper quadrant. I established another 5 mm port towards the anterior axillary line on the right side, and another 5 mm port in the mid epigastrium. The patient was placed in some reverse Trendelenburg positioning with the left side down. The greater omentum was gently dissected free from the underlying adhesions and brought back down towards the pelvis. This revealed a massively dilated and ischemic gallbladder. We began by decompressing it with a needle and syringe. Bile was black. Once the gallbladder was more pliable, a locking grasper was placed over the access site, and the gallbladder was gently retracted cephalad. There were thick adhesions all along the gallbladder body. I began by dissecting these laterally using a combination of blunt dissection, electrocautery, and the LigaSure. I was able to carried this dissection down towards the main body of the gallbladder in the direction of the infundibulum. The gallbladder wall was completely ischemic, with near complete full-thickness necrosis of an overwhelming majority of the gallbladder. As I dissected down towards the infundibulum, it became clear that it would be nearly impossible to safely dissect the triangle of Nathan in a traditional laparoscopic fashion. Therefore, elected to transition over to an open operation and reassess from a dome down approach. All the ports were removed. I connected the mid epigastric and right anterior axillary line incisions with a straight subcostal incision. I dissected down through the subcutaneous fat and open the fascia along the length of the incision. The right rectus abdominis was elevated off the posterior fascia sheath and divided by cautery. Vessels were controlled and divided with the LigaSure. The external and internal oblique were then divided between cautery as well. The posterior fascial sheath was opened along its length, and the transversus abdominis fibers were split as the peritoneum was opened along the length of the incision. I established an Omni self retracting system for exposure, then grasped the dome of the gallbladder with a Kelley clamp and began dissecting it away from the gallbladder fossa. There was a thick inflammatory rind surrounding the entire gallbladder, the true gallbladder wall was completely necrotic as previously mentioned. I dissected down along the posterior portion towards the posterior lateral side of the infundibulum. The gallbladder felt to be filled with numerous gallstones that were quite small. Great care was taken to try to milk these up into the gallbladder body and away from the cystic and common bile ducts. I then brought the dissection anteriorly and towards the medial side of the gallbladder. Thick adhesions were divided between electrocautery. I could barely palpate the cystic duct with the surrounding inflammation, because I was concerned that I may have holes the duct at that point, I felt the safest thing to do was transected as much gallbladder infundibulum as possible essentially performing a subtotal cholecystectomy. Once I developed a plane around the infundibulum from the medial side connecting back to the posterior dissection, I used a Kelley clamp to control the tissue. Scissors were used to divide the gallbladder from the clamped portion. Gallbladder was passed off the field and labeled as a specimen. Surgical site was irrigated. It was hemostatic. There is no spillage or leaking of bile. 2-0 silk soaked her was then run beneath the Kelley clamp. The clamp was removed. Again, the site was irrigated. I saw no spillage of any bile from the remaining portion. Although the wall of the gallbladder at this point appeared necrotic, I did hold suture okay, and I did cover the suture line by pexing some of the surrounding inflamed soft tissue over top of it. Again, the field was irrigated. In light of the elevated risk of biliary leak complications, I did place a surgical drain in the area. This was brought out through a separate stab incision below the surgical site. The drain was cut to an appropriate length, tucked in place, and affixed to the skin with an interrupted suture. Portion of the greater omentum was then brought back up and used to fill the gallbladder fossa. After this, the field was irrigated again. Sponge and instrument counts were correct at that point. Posterior fascia was closed with a running #1 PDS suture. The muscles were then brought back to the normal anatomic position, and the anterior fascial layers were closed with running PDS suture as well. The field was irrigated between closure of each layer. Subcutaneous fat was approximated with interrupted Vicryl stitches, and I then closed the skin with a surgical stapling device. Finally, I turned my attention back to the umbilical port site. I irrigated this. The fascia was carefully grasped with Ten clamps, and a 0 Vicryl suture was used to close the defect in a [id number] fashion. The subcutaneous space was irrigated, and the skin was closed with surgical skin stapler as well. A keith negative pressure wound dressing was then placed on the subcostal incision, and the surgical drain was placed to close suction drainage the patient was then awoken from the anesthetic, extubated, and transferred to the recovery unit.
[2023-10-21] VITALS (68 sets, daily range): BP systolic 88–118; BP diastolic 50–78; PULSE 63–96; RESP 13–26; TEMP 36.5–37.2; O2SAT 86–96
--- NOTE | 2023-10-21 | DI.RAD_ITS ---
Exam(s) XR PORTABLE CHEST AP EXAM: XR PORTABLE CHEST AP CLINICAL HISTORY: decresed sat. TECHNIQUE: 2D digital imaging was performed. COMPARISON: CR XR PORTABLE CHEST AP from 10/20/2023 FINDINGS: Single AP portable view. Suboptimal inspiratory effort. Heart size is upper normal. The mediastinum is not widened. There is persistent atelectasis in the left lung base, unchanged from yesterday. There appear to be increasing markings in the right suprahilar region which may indicate some developing infiltrate in t he right upper lobe or possibly superior segment right lower lobe. There are no pleural effusions. No pulmonary edema. No pneumothorax. No fractures. IMPRESSION: Persistent atelectasis-mild infiltrate left lung base. Possible developing infiltrate right upper mehdi ng field. Recommend nonportable PA and lateral views when clinically possible, or alternatively CT s can. I note that yesterday's abdominal CT scan revealed significant gallbladder pathology. See that separ ate report. DATA REPOSITORY: RADIATION DOSE DELIVERED:
[2023-10-21] MEDS: Insulin REGULAR-Human 100 UNITS/ML UNIT (00:08)
--- NOTE | 2023-10-21 00:49 | W.ANESPOSTOP ---
Postoperative Evaluation Date, Time and Location Date Performed: 10/21/23 Time Performed: 00:29 Patient Location: PACU Vital Signs Most Recent Imported Vital Signs: Most Recent Vital Signs Temp Pulse Resp BP Pulse Ox 36.5 C 95 H 15 106/55 L 93 10/21/23 00:00 10/21/23 00:00 10/21/23 00:00 10/21/23 00:00 10/21/23 00:00 Pain Score Most Recent Pain Score: Most Recent Pain Score Pain Level 2 10/21/23 00:00 Assessment Mental Status: Awake (Alert & Oriented to Patient Baseline) Airway and Respiratory Function: Patent airway with normal (patient baseline) respiratory exam Cardiovascular Function: Hemodynamically Stable Hydration Status: Adequately Hydrated Nausea & Vomiting: No Nausea or Vomiting Pain: Pain is tolerable per patient Peripheral Nerve Block: Patient did not receive a nerve block Postoperative Comments:: Report to ICU
[2023-10-21] MEDS: Lactated Ringers 1,000 ML 1000 ML IV (01:50)
[2023-10-21] MEDS: HYDROmorphone 2 MG/ML SYR 1 MG IVP (02:14)
[2023-10-21] MEDS: Normal Saline Flush 10 ML SYR IVP ×5 (02:15→20:20)
[2023-10-21] MEDS: ACETAMINOPHEN 1,000 MG/100 ML BTL 400 MG IVPB ×3 (03:59→20:17)
[2023-10-21] MEDS: MORPHine 4 MG/ML SYR 3 MG IVP ×5 (04:28→23:52)
[2023-10-21 06:50] LABS: Absolute Lymphocyte Count 0.77 10^3/uL (1.2-3.4); Basophils % 0.3 %; HCT 34.1 % (40.0-50.0); HGB 11.3 g/dL (13.5-17.5); Immature Grans % 0.5 %; Lymphocytes % 3.8 %; MCH 30.3 pg (27.0-33.0); MCHC 33.1 % (32.0-36.0); MCV 91 fL (80-95); MPV 10.5 fL (8.0-11.0); Monocytes % 7.3 %; Neutrophils % 88.1 %; RBC 3.73 10^6/uL (4.36-5.78); RDW 13.7 % (11.8-14.1); RDW-SD 46.1 fL; WBC 20.28 10^3/uL (4.4-10.8)
[2023-10-21 06:56] LABS: Absolute Basophil Count 0.06 10^3/uL (0.0-0.2); Absolute Monocyte Count 1.48 10^3/uL (0.1-0.8); Absolute Neutrophil Count 17.87 10^3/uL (1.2-6.7)
[2023-10-21 07:24] LABS: ALT 151 U/L (16-63); AST 109 U/L (15-37); Albumin 2.5 g/dL (3.4-5.0); Alkaline Phosphatase 191 U/L (46-116); Anion Gap 11.5 mmol/L (3-11); BUN 24 mg/dL (7-18); Bilirubin, Direct 4.3 mg/dL (0.0-0.2); Bilirubin, Total 4.97 mg/dL (0.2-1.0); CO2 22.5 mmol/L (21.0-32.0); CREATININE 1.4 mg/dL (0.70-1.30); Calcium 8.6 mg/dL (8.5-10.1); Chloride 104 mmol/L (98-107); Glucose 201 mg/dL (74-106); Lipase 12 U/L (16-77); Potassium 4.4 mmol/L (3.5-5.1); Sodium 138 mmol/L (136-145); Total Protein 6.2 g/dL (6.4-8.2)
[2023-10-21] MEDS: metroNIDAZOLE 500 MG/100 ML BAG 100 MG IVPB ×3 (07:26→23:53)
[2023-10-21 07:49] LABS: Platelet Count 720 10^3/uL (130-400)
[2023-10-21] MEDS: Insulin Aspart 300 UNITS/3 ML PEN SC ×3 (08:14→17:05)
[2023-10-21] MEDS: Ezetimibe 10 MG TAB PO (09:10)
[2023-10-21] MEDS: Gabapentin 300 MG CAP 900 MG PO ×2 (09:10→20:18)
[2023-10-21] MEDS: Pantoprazole 40 MG TABCR PO (09:11)
[2023-10-21] MEDS: Docusate Sodium 100 MG CAP PO ×2 (09:12→20:19)
[2023-10-21] MEDS: Aspirin 81 MG CHEW PO (09:12)
[2023-10-21] MEDS: Cholecalciferol (Vitamin D3) 1,000 UNIT TAB 2000 UNITS PO (09:12)
[2023-10-21] MEDS: Enoxaparin 40 MG/0.4 ML SYR SC (09:12)
--- NOTE | 2023-10-21 12:00 | W.MEDCONSULT ---
Date of service: 10/21/23 Time of Service: 12:00 Assessment and Plan Assessment and plan (1) Acute cholecystitis: Status: Acute Assessment and plan: POD s/p late open cholecystectomy or gangrenous gall bladder. Expect improvement in biliary obstructive picture, if not consider imaging of ducts. management per surgery. On ceftriaxone and metronidazole (2) Postoperative hypoxia: Status: Acute Assessment and plan: CXR and clinically c/w atelectasis, BNaP raises some concern for CHF though XRs do not suggest this. Echocardiogram pending 10/21. Last done in 2013 showed LVH but normal LVEF and no significant valvular disease. I don't think he is in CHF clinically. He has IS and understands importance of deep breathing. (3) SCAR (acute kidney injury): Status: Acute Assessment and plan: Normal baseline renal funciton but he does have mild diabetic nephropathy with microalbuminuria. SCAR is pre-renal with acute infection. Continue to monitor fluid status, urine output. I agree with fluids right now given concentrated urine and low output. (4) Type 2 diabetes mellitus: Status: Acute Assessment and plan: Currently hyperglycemic post op. States most recent A1c was 6.4%, down from 9 with recent addition of GLP-1 Trulicity. Holding GLP-1 and metformin with surgery and contrast CT. Titrate basal/bolus insulin. He confirms glipizide is an old med, not taking currenty. He is not taking a normal diet, but with holding other meds and stress of surgery I think he will need his full insulin dosing. His levemir dose is high, which may result in inconsistent absorption. I will continue his outpatient dose but split it BID. Give sliding scale to cover for pre-parandial hyperglycemia, add scheduled insulin to this if we aren't controlling sugars well. 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 Has IV morphine prn now for operative pain. Qualifiers: Spinal region: lumbar (6) Sleep apnea: Status: Acute Assessment and plan: does not use home CPAP Qualifiers: Sleep apnea type: obstructive Qualified Code(s): G47.33 - Obstructive sleep apnea (adult) (pediatric) (7) Infrarenal abdominal aortic aneurysm (AAA) without rupture: Assessment and plan: noted on CT. This does reflect some vascular risk. He is on aspirin chronically for primary prevention, holding now. He has been intolerant of simvastatin and is on ezetimibe, but it is worth trying at least a low dose of high intensity statin to modify his vascular risk. He will consider on f/u with PCP. (8) DVT prophylaxis: Assessment and plan: LMWH per surgery History of Present Illness Narrative: 72 yo M with history of type 2 IDDM with neuropathy and left BKA and right toe amputations related to trauma and osteomyelitis who presented with 3 days of progressive abdominal pain and was found to have acute cholecystitis. He underwent emergent cholecystectomy late 10/20/23. Gangrenous gallbladder removed after conversion of laproscopic case to open due to the amount of inflammation. No other complications reported during surgery, hemodynamically stable per anesthesia record. He has a history of longstanding type 2 DM. He is treated with GLP-1 dulaglutide/Trulicity, metformin, and basal/bolus insulin. He has no known CAD, PAD, or other established vascular disease. He is on chronic opioids for back pain associated with spinal stenosis. He is on low dose lisinopril for microalbuminuria a/w his diabetes. He feels well now, much better than when he came in. Pain managed with morphine, lets him take deeper breaths, using IS. He doesn't feel SOB, no cough or chest pain. No fever/chills. Tolerating liquids po. He is hungry. Consults Consult date: 10/21/23 Requesting physician: Gauri Perkins [facility] All Active Problems Postoperative hypoxia (Acute) Elevated bilirubin (Acute) Elevated transaminase level (Acute) Acute hyperglycemia (Acute) SCAR (acute kidney injury) (Acute) Acute cholecystitis (Acute) Type 2 diabetes mellitus (Acute) Amputation of right foot (Acute) History of left below knee amputation (Acute) Diabetic polyneuropathy (Acute) Amputation of leg (Acute) L - 2005 Hearing loss (Acute) Leg edema (Acute) Spinal stenosis (Acute) Current non-smoker but past smoking history unknown (Acute) Vitamin D deficiency (Acute) Tinnitus, bilateral (Acute 05/16/17) Sensorineural hearing loss (SNHL) of both ears (Chronic 05/16/17) Peripheral neuropathy (Acute) Primary osteoarthritis of left shoulder (Chronic) Sleep apnea (Acute) Hyperlipidemia (Acute) Medical History Infrarenal abdominal aortic aneurysm (AAA) without rupture Biceps tendon rupture Hx of fall Change in bowel function Leg weakness Lightheadedness Rotator cuff tear arthropathy of right shoulder Rotator cuff tear arthropathy of left shoulder Impacted cerumen, right ear Infected sebaceous cyst of skin Weight gain Sebaceous cyst (~08/19/19) referral states Right anterior chest Rupture of right distal biceps tendon (~09/2018) Osteomyelitis Foot drop, right Diabetic foot ulcer Ulcer of foot Shoulder pain, left Calf pain Bronchitis Physical deconditioning Insomnia Skin irritation Abdominal pain DNR (do not resuscitate) Myalgia Balance problem B12 deficiency Dysphagia Partial tear of left rotator cuff Most recent injection: 06/30/19 S/P RTC repair by Dr. Jarrett September 2017 MRI from 02/2018 showed full-thickness re-tear supraspinatus and infraspinatus Cellulitis of right toe right 4th toe Impingement syndrome of left shoulder SURGERY 10/09/17 Other synovitis and tenosynovitis, left shoulder SURGERY 10/09/17 Complete rotator cuff tear of left shoulder SURGERY 10/09/17 Discharge planning issues DVT prophylaxis Amputated toe of right foot Acute appendicitis with localized peritonitis Hernia of anterior abdominal wall Surgical History History of transmetatarsal amputation of right foot History of colonoscopy H/O esophagogastroduodenoscopy (~06/09/18) History of spinal surgery Status post rotator cuff surgery Rotator Cuff Repair Repair of inguinal hernia Appendectomy (06/11/16) Amputation left below knee amputation Family History (Updated 10/21/23 @ 13:46 by Erich Marie) Mother CAD (coronary artery disease) Maternal Grandmother Diabetes Social History (Updated 10/21/23 @ 13:47 by Erich Marie) Smoking/Tobacco Use Status: Former Tobacco Use Quit Date: 02/18/17 Smoking risk assessment performed?: Yes Alcohol Intake: former Drug use: Never Substance use type: does not use Details: Pt states quit smoking 09/2017 Housing: house Current gender identity: male Do you feel safe at home: Yes Do you feel safe in your relationship?: Yes Additional Social history: Grew up outside of [place] in town in [place]. 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 Exam Narrative Exam Narrative: GEN: Alert and oriented x 4, pleasant and cooperative, gives linear history. No acute distress at rest. HEENT: Head atraumatic. Conjunctiva clear, no icterus. PEERL, EOMI. no rhinorrhea. MMM, OP benign. Neck is supple with no masses or lymphadenopathy, trachea midline LUNGS: CTAB with normal effort, deminished as bases bilaterally but no rales. CV: RRR with no murmurs, gallops, or rubs. No elevation JVP ABD: hypoactive bowel sounds, soft, tender only in RUQ near wound. Mildly distended. No masses. Dressing intact in RUQ, SHERLEY with serosanguinous drainage. EXT: no cyanosis, clubbing. Warm. Trace bilateral edema MSK: No joint redness or swelling. Left prosthesis. Right toes amputated, well healed. NEURO: CN 2-12 grossly intact. Normal movement of 4 extremities. Normal speech and coordination. No sensation to light touch right foot to below knee. No tremor SKIN: No rashes or open wounds other than surgical.. PSYCH: normal mood and affect Results Last Vital Signs Temp 37.1 C 10/21/23 07:40 Pulse 80 10/21/23 08:03 Resp 21 10/21/23 09:00 BP 109/52 L 10/21/23 08:03 Pulse Ox 92 10/21/23 10:20 Labs 10/21/23 05:48 10/21/23 05:48 Labs: Laboratory Results - last 24 hr 10/20/23 10/20/23 10/20/23 17:08 17:42 18:25 WBC 16.49 H RBC 4.84 Hgb 14.3 Hct 44.0 MCV 91 MCH 29.5 MCHC 32.5 RDW 13.4 Plt Count 748 H MPV 10.3 Immature Gran % 0.8 Neutrophils % 87.5 Lymphocytes % 4.1 Monocytes % 7.0 Eosinophils % 0.2 Basophils % 0.4 Nucleated RBC % 0.0 Absolute Neutrophils 14.43 H Absolute Lymphocytes 0.68 L Absolute Monocytes 1.15 H Absolute Eosinophils 0.03 Absolute Basophils 0.07 VBG Lactate 1.3 Sodium 136 Potassium 5.0 Chloride 103 Carbon Dioxide 22.0 Anion Gap 11.0 BUN 27 H Creatinine 1.6 H Est GFR (CKD-EPI 2020) 45.50 Glucose 271 H Calcium 9.2 Total Bilirubin 4.88 H Conjugated Bilirubin AST 238 H ALT 197 H Alkaline Phosphatase 230 H Total Protein 7.5 Albumin 3.4 Lipase 23 Urine Color Urine Clarity Urine pH Ur Specific [place] Urine Protein Urine Ketones Urine Blood Urine Nitrite Urine Bilirubin Urine Urobilinogen Ur Leukocyte Esterase Urine RBC Urine WBC Ur Epithelial Cells Urine Crystals Urine Bacteria Urine Casts Urine Mucus Urine Other Ur Culture Indicated? Urine Glucose COVID-19 Source Nasopharynx SARS-CoV-2 (PCR) Negative Influenza Type A (PCR) Negative Influenza Type B (PCR) Negative RSV (PCR) Negative 10/20/23 10/21/23 20:37 05:48 WBC 20.28 H RBC 3.73 L Hgb 11.3 L D Hct 34.1 L MCV 91 MCH 30.3 MCHC 33.1 RDW 13.7 Plt Count 720 H MPV 10.5 Immature Gran % 0.5 Neutrophils % 88.1 Lymphocytes % 3.8 Monocytes % 7.3 Eosinophils % 0.0 Basophils % 0.3 Nucleated RBC % 0.0 Absolute Neutrophils 17.87 H Absolute Lymphocytes 0.77 L Absolute Monocytes 1.48 H Absolute Eosinophils 0.00 Absolute Basophils 0.06 VBG Lactate Sodium 138 Potassium 4.4 Chloride 104 Carbon Dioxide 22.5 Anion Gap 11.5 H BUN 24 H Creatinine 1.4 H Est GFR (CKD-EPI 2020) 53.40 Glucose 201 H Calcium 8.6 Total Bilirubin 4.97 H Conjugated Bilirubin 4.3 H AST 109 H ALT 151 H Alkaline Phosphatase 191 H Total Protein 6.2 L Albumin 2.5 L Lipase 12 L Urine Color [place] Urine Clarity Clear Urine pH 5.0 Ur Specific [place] 1.010 Urine Protein 100 H Urine Ketones 15 H Urine Blood Negative Urine Nitrite Negative Urine Bilirubin Large H Urine Urobilinogen >=8.0 H Ur Leukocyte Esterase Negative Urine RBC Negative Urine WBC 0-2 Ur Epithelial Cells Rare Urine Crystals Rare Amorphous Urine Bacteria Negative Urine Casts 0-2 Hyaline Urine Mucus Trace Urine Other Rare Renal Ur Culture Indicated? No Urine Glucose 500 H COVID-19 Source SARS-CoV-2 (PCR) Influenza Type A (PCR) Influenza Type B (PCR) RSV (PCR) Imaging Chest x-ray: report reviewed (Hypoinflated lungs with linear left basilar atelectasis or scarring. ) and image reviewed Imaging Studies: CT ABD/pelvis: 1. There is gross distention of the gallbladder with pericholecystic streaking. There are no obvious radiopaque calculi within the gallbladder lumen, realized limitations of CT as opposed to ultrasound for detecting the presence of gallstones in the gallbladder lumen. The CBD is not dilated and there are no dilated intrahepatic ducts. Suspect culprit acute pathology to be at the level of the cystic duct where there is a very small hyperdensity noted, possibly a small obstructing calculus. Recommend ultrasound at this time. 2. There is abnormal appearance of the wall of the adjacent hepatic flexure of the colon. This is most probably secondary to the adjacent gallbladder pathology, as opposed to intrinsic large bowel pathology.. 3. Appendix is surgically absent. 4. Stable cyst in the spleen. Also: The abdominal aorta is atherosclerotic and there is a fusiform infrarenal abdominal aortic aneurysm below the level the inferior mesenteric artery takeoff point, this exhibiting maximum diameter of 3.2 cm. The common iliac arteries are calcified and minimally prominent.
[2023-10-21 12:03] LABS: Lab Add On Test DONE
[2023-10-21 12:14] LABS: NT-proBNP 1547 pg/mL (<300)
[2023-10-21] MEDS: Lactated Ringers 500 ML IV (12:18)
--- NOTE | 2023-10-21 12:24 | DI.VRAD_ITS ---
PROCEDURE INFORMATION: Exam: XR Chest Exam date and time: 10/21/2023 11:49 AM Age: 72 years old Clinical indication: Other: Decreased sat TECHNIQUE: Imaging protocol: Radiologic exam of the chest. Views: 1 view. COMPARISON: 1. CR CHEST 2 VIEWS PA,LAT 07/13/2017 5:44 AM 2. CR XR PORTABLE CHEST AP 10/20/2023 5:14 PM FINDINGS: Lungs: Low lung volumes which limits assessment of the lung bases. Linear left basilar atelectasis or scarring. Pleural spaces: Unremarkable. No pleural effusion. No pneumothorax. Heart/Mediastinum: Stable cardiomediastinal contours. Bones/joints: Degenerative osseous changes. IMPRESSION: Hypoinflated lungs with linear left basilar atelectasis or scarring. Dictated and Authenticated by: Kvng López MD. Ordering:NILESH Astorga MD
[2023-10-21 12:56] LABS: Hemoglobin A1C 6.7 % (<5.7)
--- NOTE | 2023-10-21 16:56 | W.PM.PROGNOT ---
Date of Service Date of service: 10/21/23 Time of Service: 10:30 Assessment and Plan Assessment and plan (1) Hyperlipidemia: Status: Acute (2) Type 2 diabetes mellitus: Status: Acute Assessment and plan: - It is unclear what insulins the patient is on. 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 Rocephin and Flagyl for antibiotics Heparin for DVT Pepcid for GI prophylaxis. We will try clears today and see how he tolerates. Encourage ambulation. PT is consulted Multimodality pain plan. We did have to adjust his gabapentin for his GFR. Medicine is consulted for medical management particularly of his diabetes -Bilirubin is equivocal today. Will see if it improves tomorrow, and order an MRCP. ([facility] insists on MRCP prior to doing ERCP) if not, then he will need to need to go down to [facility] for ERCP. Because today is a holiday this is not going to happen until Saturday. (4) Elevated bilirubin: Status: Acute (5) SCAR (acute kidney injury): Status: Acute (6) Diabetic polyneuropathy: Status: Acute (7) Sleep apnea: Status: Acute Qualifiers: Sleep apnea type: obstructive Qualified Code(s): G47.33 - Obstructive sleep apnea (adult) (pediatric) (8) Former smoker: Status: Acute (9) Leg edema: Status: Acute (10) Postoperative hypoxia: Status: Acute Assessment and plan: - BNP is 1500 X-ray shows no pneumonia or fluid overload. -Encourage pulmonary toilet Encourage ambulation Monitor urine output closely Subjective Subjective Interval history since last seen: Pt is doing well. no headaches. No CP or SOB. no productive cough. no dysuria. no leg pain or swelling. Patient complains of pain in the incision when he takes a deep breath. Nursing has been working with him to do incentive spirometry. He is up in the chair this morning. He is not passing any gas. He is hungry and wants to eat however. Exam Narrative Exam Narrative: PHYSICAL EXAM GENERAL APPEARANCE: Alert, healthy appearance, oriented, x 3,? in no acute distress HYDRATION: Well hydrated HEAD, EYES, EARS, NECK, THROAT: Head is normocephalic, pupils equal, round, reactive to light and accommodation, ocular movement intact, sclera clear and no jaundice. ?Dentition- poor. . No sore throat.? No jaw pain. No thrush LUNGS: Decreased breath sounds at bases. No rales or wheeze ?HEART: Regular rate and rhythm. no murmurs EXTREMITY: No edema or cyanosis.? no leg pain, redness, swelling.? in right lower extremity. 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 There is no strikethrough. Abdomen is distended. Minimal bowel sounds. SHERLEY shows serous drainage only. Patient is not passing any gas Objective Last Vital Signs Temp 36.7 C 10/21/23 15:29 Pulse 79 10/21/23 15:25 Resp 14 10/21/23 15:30 BP 110/75 10/21/23 15:25 Pulse Ox 93 10/21/23 15:10 Laboratory Results - last 24 hr 10/20/23 10/20/23 10/20/23 17:08 17:42 18:25 WBC 16.49 H RBC 4.84 Hgb 14.3 Hct 44.0 MCV 91 MCH 29.5 MCHC 32.5 RDW 13.4 Plt Count 748 H MPV 10.3 Immature Gran % 0.8 Neutrophils % 87.5 Lymphocytes % 4.1 Monocytes % 7.0 Eosinophils % 0.2 Basophils % 0.4 Nucleated RBC % 0.0 Absolute Neutrophils 14.43 H Absolute Lymphocytes 0.68 L Absolute Monocytes 1.15 H Absolute Eosinophils 0.03 Absolute Basophils 0.07 VBG Lactate 1.3 Sodium 136 Potassium 5.0 Chloride 103 Carbon Dioxide 22.0 Anion Gap 11.0 BUN 27 H Creatinine 1.6 H Est GFR (CKD-EPI 2020) 45.50 Glucose 271 H Hemoglobin A1c Calcium 9.2 Magnesium Total Bilirubin 4.88 H Conjugated Bilirubin AST 238 H ALT 197 H Alkaline Phosphatase 230 H NT-Pro-B Natriuret Pep Total Protein 7.5 Albumin 3.4 Lipase 23 Urine Color Urine Clarity Urine pH Ur Specific [place] Urine Protein Urine Ketones Urine Blood Urine Nitrite Urine Bilirubin Urine Urobilinogen Ur Leukocyte Esterase Urine RBC Urine WBC Ur Epithelial Cells Urine Crystals Urine Bacteria Urine Casts Urine Mucus Urine Other Ur Culture Indicated? Urine Glucose COVID-19 Source Nasopharynx SARS-CoV-2 (PCR) Negative Influenza Type A (PCR) Negative Influenza Type B (PCR) Negative RSV (PCR) Negative Add-On Test Request 10/20/23 10/21/23 20:37 05:48 WBC 20.28 H RBC 3.73 L Hgb 11.3 L D Hct 34.1 L MCV 91 MCH 30.3 MCHC 33.1 RDW 13.7 Plt Count 720 H MPV 10.5 Immature Gran % 0.5 Neutrophils % 88.1 Lymphocytes % 3.8 Monocytes % 7.3 Eosinophils % 0.0 Basophils % 0.3 Nucleated RBC % 0.0 Absolute Neutrophils 17.87 H Absolute Lymphocytes 0.77 L Absolute Monocytes 1.48 H Absolute Eosinophils 0.00 Absolute Basophils 0.06 VBG Lactate Sodium 138 Potassium 4.4 Chloride 104 Carbon Dioxide 22.5 Anion Gap 11.5 H BUN 24 H Creatinine 1.4 H Est GFR (CKD-EPI 2020) 53.40 Glucose 201 H Hemoglobin A1c 6.7 H Calcium 8.6 Magnesium 2.0 Total Bilirubin 4.97 H Conjugated Bilirubin 4.3 H AST 109 H ALT 151 H Alkaline Phosphatase 191 H NT-Pro-B Natriuret Pep 1547 H Total Protein 6.2 L Albumin 2.5 L Lipase 12 L Urine Color [place] Urine Clarity Clear Urine pH 5.0 Ur Specific [place] 1.010 Urine Protein 100 H Urine Ketones 15 H Urine Blood Negative Urine Nitrite Negative Urine Bilirubin Large H Urine Urobilinogen >=8.0 H Ur Leukocyte Esterase Negative Urine RBC Negative Urine WBC 0-2 Ur Epithelial Cells Rare Urine Crystals Rare Amorphous Urine Bacteria Negative Urine Casts 0-2 Hyaline Urine Mucus Trace Urine Other Rare Renal Ur Culture Indicated? No Urine Glucose 500 H COVID-19 Source SARS-CoV-2 (PCR) Influenza Type A (PCR) Influenza Type B (PCR) RSV (PCR) Add-On Test Request DONE Time Spent with Patient Time Spent with Patient: 35-49 minutes Time was spent: preparing to see the patient(eg.review tests), obtaining and/or reviewing separately otained hiistory, ordering medications,tests, procedures, referring, communicating with other health rn intensive care unit, indepentently interpreting results, counseling the patient, care coordination and other
[2023-10-21] MEDS: Polyethylene Glycol 3350 17 GM PACKET PO (17:56)
[2023-10-21] MEDS: cefTRIAXone 2 GM/50 ML BAG IVPB (20:19)
[2023-10-21] MEDS: Insulin Glargine 300 UNITS/3 ML PEN 48 UNITS SC (20:48)
[2023-10-21] MEDS: Lactated Ringers 1,000 ML 30 ML IV (20:49)
[2023-10-22] VITALS (50 sets, daily range): BP systolic 82–135; BP diastolic 51–65; PULSE 66–90; RESP 10–26; TEMP 37.2; O2SAT 88–96
--- NOTE | 2023-10-22 | DI.MRI_ITS ---
Exam(s) MR ABDOMEN WO EXAM: MR ABDOMEN WO CLINICAL HISTORY: s/p open lucy/t kenzie 4 TECHNIQUE: Multiplanar multisequence MRI of the Abdomen was performed. COMPARISON: CT CHEST FOR PULMONARY EMBOLUS from 06/14/[address] ABDOMEN PELVIS W from 04/17/[address] ABDOMEN PELVIS W from 10/20/2023 US POCUS EXAM from 10/21/2023 US US ECHOCARDIOGRAM from 10/22/2023 FINDINGS: Lung bases: There is an infiltrate in the right lower lobe. Liver: No evidence of a hepatic mass. Pancreas: Unremarkable. Gallbladder and Bile Ducts: Status post cholecystectomy. There is fluid seen in the gallbladder memo a. Some of the fluid exhibits both hyperintense signal on T1 and T2 weighted images. No focal fluid collection is seen to suggest an abscess. There is no biliary ductal dilatation. No filling defect s are seen to suggest a retained stone. Adrenals: Unremarkable. No evidence of an adrenal mass. Kidneys: The visualized kidneys are unremarkable. There is no evidence of obstructive uropathy. Spleen: Stable hepatic lesions. These may represent hemangiomas or cysts. The largest measures 4.8 cm. Bowel: There is diverticulosis of the colon. Aorta: Unremarkable. Soft Tissues: Unremarkable. Bone: Unremarkable. Lymph Nodes: Unremarkable. IMPRESSION: 1. Status post cholecystectomy. No biliary ductal dilatation. No filling defects are seen in the bi le ducts to suggest retained stone. 2. Complex fluid collection seen in the gallbladder fossa which may represent a hematoma. No focal f luid collection is seen to suggest an abscess. A CT scan of the abdomen should be considered for cor relation. DATA REPOSITORY:
[2023-10-22] MEDS: ACETAMINOPHEN 1,000 MG/100 ML BTL 400 MG IVPB ×3 (03:37→20:16)
--- NOTE | 2023-10-22 05:35 | W.PC.ACHO ---
Registration Status: Primary Language: Preferred Language: ED Information & Data Chief Complaint Abd Prob 10/20/23 22:04 Triage Note 3 days of abdominal 10/20/23 15:30 discomfort from R side to middle. sugars have been running high, felt nauseous this morning. last bm yesterday. Medical / Surgical History (Last Reviewed 10/21/23 @ 13:45 by Erich Marie) Infrarenal abdominal aortic aneurysm (AAA) without rupture Biceps tendon rupture Hx of fall Change in bowel function Leg weakness Lightheadedness Rotator cuff tear arthropathy of right shoulder Rotator cuff tear arthropathy of left shoulder Impacted cerumen, right ear Infected sebaceous cyst of skin Weight gain Sebaceous cyst (~08/19/19) Rupture of right distal biceps tendon (~09/2018) Osteomyelitis Foot drop, right Diabetic foot ulcer Ulcer of foot Shoulder pain, left Calf pain Bronchitis Physical deconditioning Insomnia Skin irritation Abdominal pain DNR (do not resuscitate) Myalgia Balance problem B12 deficiency Dysphagia Partial tear of left rotator cuff Cellulitis of right toe Impingement syndrome of left shoulder Other synovitis and tenosynovitis, left shoulder Complete rotator cuff tear of left shoulder Discharge planning issues DVT prophylaxis Amputated toe of right foot Acute appendicitis with localized peritonitis Hernia of anterior abdominal wall (Last Reviewed 10/21/23 @ 13:45 by Erich Marie) History of transmetatarsal amputation of right foot History of colonoscopy H/O esophagogastroduodenoscopy (~06/09/18) History of spinal surgery Status post rotator cuff surgery Rotator Cuff Repair Repair of inguinal hernia Appendectomy (06/11/16) Amputation Most Recent Vital Signs Temperature 37.2 C 10/22/23 00:00 Temperature Source Temporal Artery Scan 10/22/23 02:54 Pulse 72 10/22/23 04:01 Pulse 69 10/22/23 04:30 Respiratory Rate 18 10/22/23 04:30 Respiratory Effort Normal, Non-Labored 10/22/23 02:54 Respiratory Depth Shallow 10/22/23 02:54 Respiratory Pattern Normal 10/22/23 02:54 Blood Pressure 92/63 L 10/22/23 04:01 Blood Pressure Mean 73 10/22/23 04:01 Blood Pressure Position Sitting 10/22/23 02:54 Pulse Oximetry 96 10/22/23 04:30 Oxygen Delivery Method Nasal Cannula 10/22/23 02:54 Oxygen Flow Rate 5 10/22/23 02:54 Pain Level 3 10/22/23 02:54 Allergies levofloxacin Allergy (Severe, Verified 10/20/23 15:33) critical Levaquin: SWEATS, CHILLS, ARM PAIN onion Allergy (Severe, Verified 10/20/23 15:33) raw onion Penicillins Allergy (Severe, Verified 10/20/23 15:33) Anaphylaxsis pt. reports anaphylaxis Sulfa (Sulfonamide Antibiotics) Allergy (Severe, Verified 10/20/23 15:33) Hives sulfamethoxazole (From Bactrim) Allergy (Severe, Verified 10/20/23 15:33) Hives trimethoprim (From Bactrim) Allergy (Severe, Verified 10/20/23 15:33) Hives simvastatin Adverse Reaction (Severe, Verified 10/20/23 15:33) faints Precautions Isolation Standard precaution 10/20/23 18:15 Active Medications Generic Name Dose Route Start Last Admin Trade Name Freq PRN Reason Stop Dose Admin Docusate Sodium 100 mg 10/21/23 20:00 10/21/23 20:19 Docusate Sodium 100 Mg Cap PO 11/20/23 08:29 100 mg BID HILLARY Administration Ezetimibe 10 mg 10/21/23 08:30 10/21/23 09:10 Ezetimibe 10 Mg Tab PO 11/20/23 08:29 10 mg DAILY HILLARY Administration Enoxaparin Sodium 40 mg 10/21/23 08:30 10/21/23 09:12 Enoxaparin 40 Mg/0.4 Ml Syr SC 40 mg DAILY HILLARY Administration Gabapentin 900 mg 10/21/23 08:30 10/21/23 09:10 Gabapentin 300 Mg Cap PO 900 mg DAILY HILLARY Administration Gabapentin 900 mg 10/21/23 20:00 10/21/23 20:18 Gabapentin 300 Mg Cap PO 900 mg HS HILLARY Administration Ringer's Solution 1,000 mls @ 75 mls/hr 10/20/23 22:15 10/21/23 20:49 IV 11/19/23 22:14 30 mls/hr INFUSION HILLARY Administration Acetaminophen 1,000 mg in 100 mls @ 400 mls/hr 10/21/23 04:00 10/22/23 03:52 Ofirmev IVPB 11/20/23 03:59 Infused Q8H HILLARY Infusion Metronidazole 500 mg in 100 mls @ 100 mls/hr 10/21/23 08:00 10/22/23 00:55 Flagyl IVPB 10/25/23 07:59 Infused Q8H HILLARY Infusion Ceftriaxone Sodium/Dextrose 2 gm in 50 mls @ 100 mls/hr 10/21/23 20:00 10/21/23 21:39 Rocephin IVPB Infused Q24H HILLARY Infusion Insulin Aspart 0 units 10/21/23 08:00 10/21/23 17:05 Insulin Aspart 300 Units/3 Ml Pen SC 11/20/23 07:59 6 units 0800,1200,1700 HILLARY Administration Protocol Insulin Glargine 48 units 10/21/23 20:00 10/21/23 20:48 Insulin Glargine 300 Units/3 Ml Pen SC 48 units HS HILLARY Administration Lisinopril 2.5 mg 10/21/23 08:30 10/21/23 09:19 Lisinopril 2.5 Mg Tab PO 11/20/23 08:29 Not Given DAILY HILLARY Morphine Sulfate 3 mg 10/21/23 11:29 10/21/23 23:52 Morphine 4 Mg/Ml Syr IVP 11/20/23 00:24 3 mg Q1H PRN PRN Administration Polyethylene Glycol 17 gm 10/21/23 17:15 10/21/23 17:56 Polyethylene Glycol 3350 17 Gm Packet PO 17 gm DAILY HILLARY Administration Sodium Chloride 0 ml 10/21/23 00:49 10/21/23 16:32 Normal Saline Flush 10 Ml Syr IVP 11/20/23 00:09 30 ml PRN PRN Administration Sodium Chloride 0 ml 10/21/23 08:30 10/21/23 20:20 Normal Saline Flush 10 Ml Syr IVP 11/20/23 08:29 10 ml BID HILLARY Administration IV IV Catheter Type [Right Saline Lock Forearm] IV Catheter Type [Left Peripheral IV Antecubital] IV Catheter Type [Right Hand] Saline Lock IV Catheter Gauge [Left 20 Antecubital] IV Catheter Gauge [Right Hand] 20 Diagnostics 10/21/23 Range/Units 05:48 WBC 20.28 H (4.4-10.8) 10^3/uL RBC 3.73 L (4.36-5.78) 10^6/uL Hgb 11.3 L D (13.5-17.5) g/dL Hct 34.1 L (40.0-50.0) % MCV 91 (80-95) fL MCH 30.3 (27.0-33.0) pg MCHC 33.1 (32.0-36.0) % RDW 13.7 (11.8-14.1) % Plt Count 720 H (130-400) 10^3/uL MPV 10.5 (8.0-11.0) fL Immature Gran % 0.5 % Neutrophils % 88.1 % Lymphocytes % 3.8 % Monocytes % 7.3 % Eosinophils % 0.0 % Basophils % 0.3 % Nucleated RBC % 0.0 (0.0-0.3) % Absolute Neutrophils 17.87 H (1.2-6.7) 10^3/uL Absolute Lymphocytes 0.77 L (1.2-3.4) 10^3/uL Absolute Monocytes 1.48 H (0.1-0.8) 10^3/uL Absolute Eosinophils 0.00 (0.0-0.7) 10^3/uL Absolute Basophils 0.06 (0.0-0.2) 10^3/uL Sodium 138 (136-145) mmol/L Potassium 4.4 (3.5-5.1) mmol/L Chloride 104 (98-107) mmol/L Carbon Dioxide 22.5 (21.0-32.0) mmol/L Anion Gap 11.5 H (3-11) mmol/L BUN 24 H (7-18) mg/dL Creatinine 1.4 H (0.70-1.30) mg/dL Est GFR (CKD-EPI 2020) 53.40 (mL/min/1.73m2) Glucose 201 H (74-106) mg/dL Hemoglobin A1c 6.7 H (<5.7) % Calcium 8.6 (8.5-10.1) mg/dL Magnesium 2.0 (1.8-2.4) mg/dL Total Bilirubin 4.97 H (0.2-1.0) mg/dL Conjugated Bilirubin 4.3 H (0.0-0.2) mg/dL AST 109 H (15-37) U/L ALT 151 H (16-63) U/L Alkaline Phosphatase 191 H (46-116) U/L NT-Pro-B Natriuret Pep 1547 H (<300) pg/mL Total Protein 6.2 L (6.4-8.2) g/dL Albumin 2.5 L (3.4-5.0) g/dL Lipase 12 L (16-77) U/L Add-On Test Request DONE 10/20/23 17:42 Blood Culture - Preliminary Blood NO GROWTH 24 HOURS [id number] Documentation Fingerstick Glucose Start: 10/20/23 20:00 Freq: .Stat Status: Complete Protocol: Activity Type Activity Date Activity User E-sign Co-sign Detail Recorded Client Recorded Date Recorded By Document 10/20/23 20:04 BKG DAEMON(10) [id number] 10/20/23 20:07 BKG DAEMON(10) Fingerstick Glucose Start: 10/20/23 20:07 Freq: .Q1H Status: Discharge Protocol: Activity Type Activity Date Activity User E-sign Co-sign Detail Recorded Client Recorded Date Recorded By Document 10/21/23 00:04 HW [id number] 10/21/23 00:19 HW Fingerstick Glucose Start: 10/21/23 00:49 Freq: .AC Status: Active Protocol: Activity Type Activity Date Activity User E-sign Co-sign Detail Recorded Client Recorded Date Recorded By Document 10/21/23 17:04 BKG DAEMON(10) [id number] 10/21/23 17:09 BKG DAEMON(10) Intake and Output - 24 Hour Total 10/20/23 15:27 thru 10/22/23 03:52 Intake Total 6920 Output Total 2295 Balance 4625 Weight 120.7 kg Intake: IV 4510 Oral 2410 Output: Drainage 145 Right Upper Anterior Abdomen 145 Urine 1650 Estimated Blood Loss 500 Other: Urine Color [place] Urine Appearance Clear Comment Mckeon intact and draining clear yellow/orange urine with sediment. Emesis Description None Urinary Catheter Urinary Catheter Date of 10/20/23 Insertion [Urethral (Mckeon)] Urinary Catheter Date of 10/20/23 Insertion [Urethral (Mckeon)] Time of insertion [Urethral ( 21:24 Mckeon)] Time of insertion [Urethral ( 21:24 Mckeon)] Falls Risk Assessment History of Falls Previous History 10/21/23 00:57 Contributing Factors Impairments 10/21/23 00:57 Ambulatory Aids Uses ambulatory device + 10/21/23 00:57 Tubes/Lines With any additional score 10/21/23 00:57 Gait Evaluation W/any additional score 10/21/23 00:57 Cognition No cognitive impairment 10/20/23 18:17 Fall Total Score 88 10/21/23 00:57 Level of Risk Maximum Risk 10/21/23 00:57 Problems (Last Reviewed 10/21/23 @ 13:45 by Erich Marie) Former smoker (Acute) Postoperative hypoxia (Acute) Elevated bilirubin (Acute) Elevated transaminase level (Acute) Acute hyperglycemia (Acute) SCAR (acute kidney injury) (Acute) Acute cholecystitis (Acute) Leg edema (Acute) Type 2 diabetes mellitus (Acute) Spinal stenosis (Acute) Sleep apnea (Acute) Hyperlipidemia (Acute) Diabetic polyneuropathy (Acute) Notes 10/20/23 17:26 Nursing Notes by Liane Merino Nursing Note: o2 trended down to 86% on room air following administration of morphine; started on 2lpm via supplemental o2 and oxygen titrated up to 92%. Provider aware. Initialized on 10/20/23 17:26 - END OF NOTE v v v v v v v v v Sending and/or Receiving Nurses: Please use comment section below to note any information pertinent to the patient hand-off not included above. Information / Comments: hard copy of hand off in paper chart Report received from: Luis Jackson RN all questions answered
--- NOTE | 2023-10-22 07:25 | W.PM.PROGNOT ---
Date of Service Date of service: 10/22/23 Time of Service: 07:25 Assessment and Plan Assessment and plan (1) Hyperlipidemia: Status: Acute (2) Type 2 diabetes mellitus: Status: Acute Assessment and plan: - It is unclear what insulins the patient is on. Qualifiers: Diabetes mellitus termite treater helper insulin use: with halfway use Diabetes mellitus complication status: with neurologic complications Diabetes mellitus complication detail: with polyneuropathy Qualified Code(s): E11.42 - Type 2 diabetes mellitus with diabetic polyneuropathy; Z79.4 - senior care (current) use of insulin (3) Acute cholecystitis: Status: Acute Assessment and plan: Postop day #2 for gangrenous cholecystitis. Rocephin and Flagyl for antibiotics Heparin for DVT Pepcid for GI prophylaxis. We will try clears today and see how he tolerates. Encourage ambulation. PT is consulted Multimodality pain plan. We did have to adjust his gabapentin for his GFR. Medicine is consulted for medical management particularly of his diabetes (4) Elevated bilirubin: Status: Acute (5) SCAR (acute kidney injury): Status: Acute (6) Diabetic polyneuropathy: Status: Acute (7) Sleep apnea: Status: Acute Qualifiers: Sleep apnea type: obstructive Qualified Code(s): G47.33 - Obstructive sleep apnea (adult) (pediatric) (8) Former smoker: Status: Acute (9) Leg edema: Status: Acute (10) Postoperative hypoxia: Status: Acute Assessment and plan: - BNP is 1500 X-ray shows no pneumonia or fluid overload. -Encourage pulmonary toilet Encourage ambulation Monitor urine output closely Subjective Subjective Interval history since last seen: Arrived with patient sitting in the chair. He states that he is only having pain with mobility. He denies any nausea, vomiting, fevers or chills. Exam Const General: cooperative, healthy appearing and comfortable Orientation: alert and oriented x3 Resp Effort & Inspection: normal respiratory effort, no audible wheezes and no cough GI Inspection: normal to inspection Palpation: soft, no guarding and tender (RLQ) Objective Last Vital Signs Temp 37.2 C 10/22/23 00:00 Pulse 72 10/22/23 04:01 Resp 18 10/22/23 04:30 BP 92/63 L 10/22/23 04:01 Pulse Ox 96 10/22/23 04:30 Laboratory Results - last 24 hr 10/21/23 05:48 WBC 20.28 H RBC 3.73 L Hgb 11.3 L D Hct 34.1 L MCV 91 MCH 30.3 MCHC 33.1 RDW 13.7 Plt Count 720 H MPV 10.5 Immature Gran % 0.5 Neutrophils % 88.1 Lymphocytes % 3.8 Monocytes % 7.3 Eosinophils % 0.0 Basophils % 0.3 Nucleated RBC % 0.0 Absolute Neutrophils 17.87 H Absolute Lymphocytes 0.77 L Absolute Monocytes 1.48 H Absolute Eosinophils 0.00 Absolute Basophils 0.06 Sodium 138 Potassium 4.4 Chloride 104 Carbon Dioxide 22.5 Anion Gap 11.5 H BUN 24 H Creatinine 1.4 H Est GFR (CKD-EPI 2020) 53.40 Glucose 201 H Hemoglobin A1c 6.7 H Calcium 8.6 Magnesium 2.0 Total Bilirubin 4.97 H Conjugated Bilirubin 4.3 H AST 109 H ALT 151 H Alkaline Phosphatase 191 H NT-Pro-B Natriuret Pep 1547 H Total Protein 6.2 L Albumin 2.5 L Lipase 12 L Add-On Test Request DONE Time Spent with Patient Time Spent with Patient: <25 minutes Time was spent: preparing to see the patient(eg.review tests) and counseling the patient
[2023-10-22] MEDS: Gabapentin 300 MG CAP 900 MG PO ×2 (08:15→20:19)
[2023-10-22] MEDS: Docusate Sodium 100 MG CAP PO ×2 (08:16→20:20)
[2023-10-22] MEDS: Polyethylene Glycol 3350 17 GM PACKET PO (08:16)
[2023-10-22] MEDS: Lisinopril 2.5 MG TAB PO (08:16)
[2023-10-22] MEDS: Pantoprazole 40 MG VIAL IVP (08:16)
[2023-10-22] MEDS: metroNIDAZOLE 500 MG/100 ML BAG 100 MG IVPB ×2 (08:17→16:19)
[2023-10-22] MEDS: Enoxaparin 40 MG/0.4 ML SYR SC (08:17)
[2023-10-22 08:35] LABS: HCT 32.6 % (40.0-50.0); HGB 10.4 g/dL (13.5-17.5); MCH 29.8 pg (27.0-33.0); MCHC 31.9 % (32.0-36.0); MCV 93 fL (80-95); MPV 11.2 fL (8.0-11.0); Platelet Count 450 10^3/uL (130-400); RBC 3.49 10^6/uL (4.36-5.78); RDW 13.8 % (11.8-14.1); RDW-SD 46.5 fL
[2023-10-22] MEDS: Normal Saline Flush 10 ML SYR IVP ×2 (08:44→20:20)
[2023-10-22 08:58] LABS: ALT 118 U/L (16-63); AST 72 U/L (15-37); Albumin 2.4 g/dL (3.4-5.0); Alkaline Phosphatase 167 U/L (46-116); Anion Gap 8.3 mmol/L (3-11); BUN 22 mg/dL (7-18); CO2 25.7 mmol/L (21.0-32.0); CREATININE 1.4 mg/dL (0.70-1.30); Calcium 8.5 mg/dL (8.5-10.1); Chloride 103 mmol/L (98-107); Glucose 162 mg/dL (74-106); Potassium 4.3 mmol/L (3.5-5.1); Sodium 137 mmol/L (136-145); Total Protein 6.3 g/dL (6.4-8.2)
[2023-10-22 09:27] LABS: Bilirubin, Direct 2.3 mg/dL (0.0-0.2)
--- NOTE | 2023-10-22 09:28 | PGE_ITS ---
Date of Service Date of service: 10/22/23 Time of Service: 09:28 Assessment and Plan Assessment and plan (1) Acute cholecystitis: Status: Acute Assessment and plan: POD s/p late open cholecystectomy or gangrenous gall bladder. management per surgery. (2) Postoperative hypoxia: Status: Acute Assessment and plan: -CXR and clinically c/w atelectasis, BNaP raises some concern for CHF though XRs do not suggest this -patient had been on up to 4L NC, now on RA -TTE EF 55%, suboptimal due to body habitus and positioning -doesnt appear as CHF clinically. He has IS and understands importance of deep breathing. (3) SCAR (acute kidney injury): Status: Acute Assessment and plan: -Normal baseline renal funciton but he does have mild diabetic nephropathy with microalbuminuria. -SCAR is pre-renal with acute infection. -Continue to monitor fluid status, urine output. -I agree with fluids right now given concentrated urine and low output. (4) Type 2 diabetes mellitus: Status: Acute Assessment and plan: -had been hyperglycemic post op. -States most recent A1c was 6.4%, down from 9 with recent addition of GLP-1 Trulicity. -Holding GLP-1 and metformin with surgery and contrast CT. -Titrate basal/bolus insulin; better control on SSI and glargine 48HS started evening 10/20 -He confirms glipizide is an old med, not taking currenty. -He is not taking a normal diet, but with holding other meds and stress of surgery I think he will need his full insulin dosing. Qualifiers: Diabetes mellitus complication detail: with polyneuropathy Diabetes mellitus complication status: with neurologic complications Diabetes mellitus group home insulin use: with group home use Qualified Code(s): E11.42 - Type 2 diabetes mellitus with diabetic polyneuropathy; Z79.4 - assisted (current) use of insulin (5) Spinal stenosis: Status: Acute Assessment and plan: He is on chronic oxycodone but only uses intermittently every few days. Has IV morphine prn now for operative pain. Qualifiers: Spinal region: lumbar (6) Sleep apnea: Status: Acute Assessment and plan: does not use home CPAP Qualifiers: Sleep apnea type: obstructive Qualified Code(s): G47.33 - Obstructive sleep apnea (adult) (pediatric) (7) Infrarenal abdominal aortic aneurysm (AAA) without rupture: Assessment and plan: noted on CT. This does reflect some vascular risk. He is on aspirin chronically for primary prevention, holding now. He has been intolerant of simvastatin and is on ezetimibe, but it is worth trying at least a low dose of high intensity statin to modify his vascular risk. He will consider on f/u with PCP. (8) DVT prophylaxis: Assessment and plan: LMWH per surgery Subjective Subjective Interval history since last seen: Patient states that he is doing well today and is happy that his echo did not show any acute findings and that his blood sugars are improved. Exam Narrative Exam Narrative: well appearing gentleman sitting up on the edge of the bed in no acute distress, AOx4, heart RRR, lungs CTAB, abdomen soft, mildly tender around surgical incisions, without rebound or guarding, post-op drain in place Objective Last Vital Signs Temp 99.0 F 10/22/23 00:00 Pulse 72 10/22/23 04:01 Resp 18 10/22/23 04:30 BP 92/63 L 10/22/23 04:01 Pulse Ox 94 10/22/23 07:53 Laboratory Results - last 24 hr 10/21/23 10/22/23 05:48 08:20 WBC 12.10 H RBC 3.49 L Hgb 10.4 L Hct 32.6 L MCV 93 MCH 29.8 MCHC 31.9 L RDW 13.8 Plt Count 450 H MPV 11.2 H Sodium 137 Potassium 4.3 Chloride 103 Carbon Dioxide 25.7 Anion Gap 8.3 BUN 22 H Creatinine 1.4 H Est GFR (CKD-EPI 2020) 53.40 Glucose 162 H Hemoglobin A1c 6.7 H Calcium 8.5 Magnesium 2.0 Total Bilirubin 2.80 H Conjugated Bilirubin 2.3 H AST 72 H ALT 118 H Alkaline Phosphatase 167 H NT-Pro-B Natriuret Pep 1547 H Total Protein 6.3 L Albumin 2.4 L Add-On Test Request DONE Time Spent with Patient Time Spent with Patient: >50 minutes Time was spent: preparing to see the patient(eg.review tests), obtaining and/or reviewing separately otained hiistory, ordering medications,tests, procedures, referring, communicating with other health summer child caregiver, indepentently interpreting results, counseling the patient and care coordination
--- NOTE | 2023-10-22 09:30 | DI.US_ITS ---
APPROVED REPORT EXAM: Comprehensive 2D, Doppler, and color-flow Echocardiogram Patient Location: In-Patient Room/Bed: [id number] Graphic Design Intern: Maribell Kuhn RDCS (AE) Indications: Severe DM Other Information Study Quality: Fair. Technically limited study due to body habitus, inability to position patient, ex am done supine bedside, post operative dressings. Conclusion Technically limited study Normal left ventricular wall thickness and chamber size. Ejection fraction is 55%. Could not accura tely assess regional wall motion Right ventricle was not well-visualized Atria are normal in size Aortic valve is mildly sclerotic and trileaflet Mild mitral annular calcification Wall motion Left Ventricle Technically limited parasternal imaging. The overall left ventricular systolic function appears jalen l. Regional wall motion is not well visualized but grossly normal. Technically limited subcostal imag ing. LVEF is 55%. Right Ventricle Right ventricle is not well visualized. Right ventricular systolic function could not be assessed. Atria The left atrium size is normal. The right atrium size is normal. Technically limited subcostal imagin g. Aortic Valve The Aortic valve is milldly sclerotic. Aortic valve is trileaflet. There is no aortic valvular stenos is. No aortic regurgitation is present. Mitral Valve Mild mitral annular calcification. No evidence of mitral valve stenosis. Trace to mild mitral regurgi tation. Tricuspid Valve The tricuspid valve is normal in structure. There is no tricuspid valve stenosis. Trace tricuspid reg urgitation. Unable to assess PA pressure. Pulmonic Valve The pulmonary valve is normal in structure. There is no pulmonic valvular stenosis. Trace pulmonic re gurgitation. Great Vessels The aortic root is normal in size. Ascending aorta is not well visualized. The IVC was not visualized . Technically limited subcostal imaging. Pericardium Technically limited, abdominal bandage, recent surgery. 2D Dimensions Ao Root d 3.42 cm M: 3.1 - 3.7 Auto EF LV EDV A4C 110.6 mL LV EDV A2C 144.6 mL LV EDV BP 125.9 mL LV ESV A4C 48.9 mL LV ESV A2C 66.9 mL LV ESV BP 56.8 mL LVEF(%) A4C 55.8 % LVEF(%) A2C 53.7 % LVEF(%) BP 54.9 % LV SV A4C 61.8 ml LV SV A2C 77.6 ml LV SV BP 69.1 ml LV CO A4C 4.6 L/min LV CO A2C 5.4 L/min LV CO BP 5.0 L/min HR A4C 73.90 BPM HR A2C 70.04 BPM LV EDV Index (BP) LA Volume LA Length A4C 5.8 cm LA Length A2C 6.1 cm LA Area A4C s 23.53 cm2 LA Area A2C s 18.46 cm2 LA Vol A4C A-L 81.45 mL LA Vol A2C A-L 47.37 mL LA Vol Biplane A-L 63.9 mL LA Vol/BSA A4C A-L LA Vol/BSA A2C A-L LA Vol/BSA BP A-L 26.3 mL/m2 LA Vol A4C MOD 74.9 mL LA Vol A2C MOD 44.7 mL LA Vol BP MOD 59.4 mL RA Volume RA Area A4C 13.2 cm2 RA ESV A4C (A-L) 34.0mL RA Vol/BSA A4C A-L RA Length A4C 4.3 cm RA ESV A4C (MOD) 30.1mL LV Diastology MV E' medial 0.118 (>0.07 m/s) MV E Vmax 1.17 (0.4-1.3 m/s) MV E/E' MED 9.90 (<14) MV A Vmax 1.00 (0.4-1.3 m/s) MV E' lateral 0.137 (>0.1 m/s) E/A Ratio 1.2 MV E/E' LAT 8.54 (<14) MV E' Average 0.127 m/s MV E/E'(average) 9.17 Aortic Valve AoV Vmax 1.18 m/s LVOT Vmax 0.92 m/s AoV Peak Grad 5.6 mmHg LVOT Peak Grad 3.4 mmHg AoV Area (Vmax) 2.77 cm2 LVOT VTI 0.215 m AoV VTI 0.298 m LVOT Mean Grad 2.0 mmHg AoV Mean Marek. 0.87 m/s LVOT SV 76.29 mL AoV Mean Grad 3.4 mmHg LVOT Diam s 2.10 cm AoV Area (VTI) 2.56 cm2 AV Regurg Peak Gr. 5.59 mmHg Velocity Ratio 0.78 Mitral Valve MV DT 206 (160-240 msec) MV Vmax TIPS 1.00 m/s MV Mean Grad 2.1 (<2mmHg) MV VTI 0.319 m Pulmonary Valve PV Vmax 1.05 (0.5-1.5 m/s) RVOT Vmax 0.83 m/s PV Peak Grad 4.4 mmHg RVOT Peak Gr. 2.8 mmHg PV Mean Marek 0.80 m/s RVOT VTI 0.211 m PV Mean Grad 2.8 mmHg RVOT Mean Gr. 1.6 mmHg Tricuspid Valve TV S' 0.12 m/s
--- NOTE | 2023-10-22 09:33 | PDOC.CMIN ---
Date of service: 10/22/23 Time of Service: 09:33 Care Management Initial Assmt Initial Assessment Reason for Hospitalization: gangrenous cholecystitis Functional Status/Living Situation Patient Presentation: Eloy as Christopher prefers to be called, was sitting up in bed when CM met with him.He was joking with and teasing the nursing staff and appeared to be in good spirits. Eloy was admitted with acute cholecystitis and had an emergent cholecystectomy late Saturday evening. The procedure started out laparoscopically, however when his gallbladder was found to be gangrenous, it was converted to an open' procedure. Eloy is actually doing fairly well, considering the extent of disease in his gallbladder.. His WBC has come down to 12.10 from a high of 20.28 and he remains afebrile. Eloy's blood pressure is running a bit low with systolic readings in the 90-110 range, but his heart rate is normal and his LFTs are on the decline. He is tolerating a liquid diet and had a negative MRCP today. Per his surgeon, it is likely he will be ready for discharge within the next day or two. Eloy lives in a single family home in [place] with his Sol; they have no children. Eloy listed his 2 fishing buddies as close friends and good supports. 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 Advance Directives Advance Directives: Do you have an Advance Directive: Y 10/29/17 09:32 AD On File at [facility]: Y 10/16/16 13:04 Date Asked AD Date Reviewed 10/20/23 10/20/23 15:36 COLST On File at [facility] COLST Date Scanned Code Status Resuscitation Status Full Code Portal Pt does not currently have a portal and education provided: No Insurance Coverage/Financial Issues Insurance: Medicare Financial Assist 100 Care Team Visit Care Team Role Provider Type Lilli Packer MD Primary Care Provider [facility] STAFF PHYSICIAN InPatient Arron Hansen Other Providers OTHER [facility] Provider [employer] Lamont Siu MD Admit Provider [facility] STAFF PHYSICIAN Attending Provider Discharge Potential Discharge Needs: PCP F/U Appt and Surgical F/U Appt Anticipated Barriers to Discharge: None Identified Patient/Family Education Needs: Review discharge instructions, discuss Ask Me Three Transportation: Private vehicle Plan: Anticipate Jason will be discharged home, possibly with new home health services, when medically cleared. He will follow up with his surgeon and plan of care and transport with family. CM will follow and support discharge planning needs. PFSH All Active Problems Former smoker (Acute) Postoperative hypoxia (Acute) Elevated bilirubin (Acute) Elevated transaminase level (Acute) Acute hyperglycemia (Acute) SCAR (acute kidney injury) (Acute) Acute cholecystitis (Acute) Leg edema (Acute) Type 2 diabetes mellitus (Acute) Vitamin D deficiency (Acute) Spinal stenosis (Acute) Sleep apnea (Acute) Peripheral neuropathy (Acute) Hyperlipidemia (Acute) Hearing loss (Acute) Current non-smoker but past smoking history unknown (Acute) Amputation of leg (Acute) L - 2006 Amputation of right foot (Acute) History of left below knee amputation (Acute) Diabetic polyneuropathy (Acute) Primary osteoarthritis of left shoulder (Chronic) Tinnitus, bilateral (Acute 05/16/17) Sensorineural hearing loss (SNHL) of both ears (Chronic 05/16/17) Medical History Infrarenal abdominal aortic aneurysm (AAA) without rupture Biceps tendon rupture Hx of fall Change in bowel function Leg weakness Lightheadedness Rotator cuff tear arthropathy of right shoulder Rotator cuff tear arthropathy of left shoulder Impacted cerumen, right ear Infected sebaceous cyst of skin Weight gain Sebaceous cyst (~08/19/19) referral states Right anterior chest Rupture of right distal biceps tendon (~09/2018) Osteomyelitis Foot drop, right Diabetic foot ulcer Ulcer of foot Shoulder pain, left Calf pain Bronchitis Physical deconditioning Insomnia Skin irritation Abdominal pain DNR (do not resuscitate) Myalgia Balance problem B12 deficiency Dysphagia Partial tear of left rotator cuff Most recent injection: 06/30/19 S/P RTC repair by Dr. Jarrett September 2017 MRI from 02/2018 showed full-thickness re-tear supraspinatus and infraspinatus Cellulitis of right toe right 4th toe Impingement syndrome of left shoulder SURGERY 10/09/17 Other synovitis and tenosynovitis, left shoulder SURGERY 10/09/17 Complete rotator cuff tear of left shoulder SURGERY 10/09/17 Discharge planning issues DVT prophylaxis Amputated toe of right foot Acute appendicitis with localized peritonitis Hernia of anterior abdominal wall Surgical History History of transmetatarsal amputation of right foot History of colonoscopy H/O esophagogastroduodenoscopy (~06/09/18) History of spinal surgery Status post rotator cuff surgery Rotator Cuff Repair Repair of inguinal hernia Appendectomy (06/11/16) Amputation left below knee amputation Family History (Updated 10/21/23 @ 13:46 by Erich Marie) Mother CAD (coronary artery disease) Maternal Grandmother Diabetes Social History (Updated 10/21/23 @ 13:47 by Erich Marie) Smoking/Tobacco Use Status: Former Tobacco Use Quit Date: 02/18/17 Smoking risk assessment performed?: Yes Alcohol Intake: former Drug use: Never Substance use type: does not use Details: Pt states quit smoking 09/2017 Housing: house Current gender identity: male Do you feel safe at home: Yes Do you feel safe in your relationship?: Yes Additional Social history: Grew up outside of [place] in town in [place]. 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 SDOH(Care Management) Screening Will the Patient Participate in the Screening?: Yes Do you worry about having a steady place to live?: no Problems where you live: no known problems In the past 12 months, have you had to go without electric, gas, oil or water in your home?: no Have you or anyone in your house had to go without enough food to eat?: no Has lack of transportation kept you from medical appointments or from doing things needed for daily living?: no Has anyone in your support network made you feel unsafe for any reason?: no
--- NOTE | 2023-10-22 11:35 | TELEP.MEDREC ---
Date of service: 10/22/23 Time of Service: 11:35 Telepharmacy Home Med Rec Allergies Allergies: levofloxacin Allergy (Severe, Verified 10/20/23 15:33) critical onion Allergy (Severe, Verified 10/20/23 15:33) raw onion Penicillins Allergy (Severe, Verified 10/20/23 15:33) Anaphylaxsis Sulfa (Sulfonamide Antibiotics) Allergy (Severe, Verified 10/20/23 15:33) Hives sulfamethoxazole (From Bactrim) Allergy (Severe, Verified 10/20/23 15:33) Hives trimethoprim (From Bactrim) Allergy (Severe, Verified 10/20/23 15:33) Hives simvastatin Adverse Reaction (Severe, Verified 10/20/23 15:33) faints Interview Person Interviewed: Med list updated based on provided patient med list. Changes made to Home Medication List: ADDITIONS: Metformin 850mg Tresiba DELETIONS: Levemir glipizide CHANGES: Trulicity: dose increased to 3mg weekly oxycodone: dose changed from 2 tabs to 1 tab QID PRN Recommended Changes Attestation: The home medication list is now updated to the best of my knowledge and is ready to be reconciled by the provider. Please contact the TelePharmacy Medication Reconciliation Pharmacist at for any questions.
--- NOTE | 2023-10-22 16:09 | PT.INIE ---
PT Notes Visit Reasons: Acute gangrenous cholecystitis Inpatient Physical Therapy Evaluation Date: 10/22/2023 Referring Doctor: Gauri Perkins PT Orders: PT CONSULT: PT evaluation Precautions: IV bilateral upper extremities, indwelling Mckeon catheter, drain to right abdominal wall, left BKA, right TMA, fall risk Patient Profile/Admitting Diagnosis: Patient is a 72-year-old male who presented to the ED on 10/20/2023 with increased abdominal pain x 3 days. Workup in ED revealed elevated bilirubin and elevated transaminase levels. Patient underwent cholecystectomy due to gangrene and need for drain. Postop complicated by hypoxia. Patient transition to ICU for further medical management. PMHX: Elevated bilirubin (Acute) Elevated transaminase level (Acute) Acute hyperglycemia (Acute) SCAR (acute kidney injury) (Acute) Acute cholecystitis (Acute) Leg edema (Acute) Type 2 diabetes mellitus (Acute) Vitamin D deficiency (Acute) Spinal stenosis (Acute) Sleep apnea (Acute) Peripheral neuropathy (Acute) Hyperlipidemia (Acute) Hearing loss (Acute) Current non-smoker but past smoking history unknown (Acute) Amputation of leg (Acute) L - 2006Amputation of right foot (Acute) History of left below knee amputation (Acute) Diabetic polyneuropathy (Acute) Primary osteoarthritis of left shoulder (Chronic) Tinnitus, bilateral (Acute 05/16/17) Sensorineural hearing loss (SNHL) of both ears (Chronic 05/16/17) Medical History Biceps tendon rupture Hx of fall Change in bowel function Leg weakness Lightheadedness Rotator cuff tear arthropathy of right shoulder Rotator cuff tear arthropathy of left shoulder Impacted cerumen, right ear Infected sebaceous cyst of skin Weight gain Sebaceous cyst (~08/19/19) referral states Right anterior chest Rupture of right distal biceps tendon (~09/2018) Osteomyelitis Foot drop, right Diabetic foot ulcer Ulcer of foot Shoulder pain, left Calf pain Bronchitis Physical deconditioning Insomnia Skin irritation Abdominal pain DNR (do not resuscitate) Myalgia Balance problem B12 deficiency Dysphagia Partial tear of left rotator cuff Most recent injection: 06/30/19 S/P RTC repair by Dr. Jarrett September 2017 MRI from 02/2018 showed full-thickness re-tear supraspinatus and infraspinatusCellulitis of right toe right 4th toeImpingement syndrome of left shoulder SURGERY 10/09/17Other synovitis and tenosynovitis, left shoulder SURGERY 10/09/17Complete rotator cuff tear of left shoulder SURGERY 10/09/17 Discharge planning issues DVT prophylaxis Amputated toe of right foot Acute appendicitis with localized peritonitis Hernia of anterior abdominal wall Surgical History History of transmetatarsal amputation of right foot History of colonoscopy H/O esophagogastroduodenoscopy (~06/09/18) History of spinal surgery Status post rotator cuff surgery Rotator Cuff Repair Repair of inguinal hernia Appendectomy (06/11/16) Amputation left below knee amputation Social History/Home Situation: Patient reports he lives with his stairs to enter home with railing. He reports he is able to ambulate within his home without a device and utilizes a cane when out of home. Independent ADLs and ambulation independent with prosthetic management. He reports he descends stairs sideways holding the rail due to narrow tread on step limiting his ability to get his foot onto the step completely. Current Functional Limitations: Impaired transfers bed mobility ambulation and stairs Equipment Owned/DME: Single-point cane, FWW, AFO and left BKA prosthetic from [employer] Subjective: Patient reports he is feeling better slight abdominal pain from the tube. Patient motivated to return home. Objective: General Observation: Presented supine in bed with left BKA prosthetic and right AFO nearby telemetry in place indwelling catheter in place SHERLEY drain to right abdominal wall in place. Patient agreeable to participate motivated to walk. Patient able to verbalize donning and doffing prosthetic and AFO Mental Status: Alert and oriented x 3 Pain: Abdominal 2?3 on 0?10 pain scale Vital Signs: Monitored by nursing via telemetry ROM: Right Upper Extremity: 5/5 within available range Left Upper Extremity: 5 / 5 Right Lower Extremity: Hip flexion 4/ 5 hip extension 3+ / 5 hip abduction 3+/5; knee extension 4/5; ankle DF 0/5 Left Lower Extremity: Hip flexion 4/ 5 hip extension 3+ / 5 hip abduction 3+/5; knee extension 4/5; ankle not tested due to BKA Strength: Right Upper Extremity: Shoulder flexion abduction to horizontal, elbow and hand within normal limits Left Upper Extremity: Within normal limits; positive Dupuytren's left third digit Right Lower Extremity: Hip and knee WFL; ankle to neutral PF/DF Left Lower Extremity: Hip and knee within functional limits; ankle not tested due to BKA Sensation: Intact to light touch bilateral lower extremities, diminished bilateral hands Bed Mobility/Transfers: Min assist supine to sit; sit to stand CGA with cues for hand placement step turn transfers with FWW CGA Gait: Ambulates with left BKA prosthetic, right AFO and FWW 50 feet with wide base of support intermittently outside frame of FWW increased forward flexion trunk and excessive weightbearing through upper extremities. Patient moves quickly/impulsive demonstrates equal step length. Stairs: Unable at this time Balance: Static Sitting: Normal Dynamic Sitting: Fair Static Standing: Good-with bilateral upper extremity support Dynamic Standing: Fair + with bilateral upper extremity support Special Tests: Mobility Limitations Standardized Measure [facility] AM-PAC 6 clicks Basic Mobility Inpatient Short Form: Raw Score: 20 CMS Score: 35.81% disability Informed Consent/Education: Patient instructed in purpose of PT consult and plan of care. Assessment: Patient is a 72year old male referred to physical therapy services with the diagnosis of acute cholecystitis. Due to abdominal pain and SHERLEY drain patient requires assistance with donning/doffing left BKA prosthetic and right AFO. He demonstrates impaired forward flexion of trunk. Patient presents with clinical signs and symptoms consistent with admitting diagnosis, as demonstrated by the following impairment level findings: 1. Impaired forward flexion of trunk 2. Impaired balance reactions and standing 3. Impaired activity tolerance Impairments are contributing to the following functional limitations: 1. AMPAC score. 2. Declining transfer skills 3. Decline with ambulation without assistive device and physical assistance 4. Increase completion time for mobility/ADL performance 5. Increased risk for falls 6. Difficulty with managing steps alone safely Patient is assessed as a Moderate [id number] complexity based on the following: History: Patient is 72-year-old male status post cholecystectomy with drain in place, history of left BKA and right TMA. Examination: As above Presentation: Stable Decision Making: Moderate Goals: Goals X1 week 1. Bed-Chair with FWW, left prosthetic, right AFO independent 2. Chair-Bed with FWW, left prosthetic, right AFO independent 3. Gait 200 feet with FWW, left prosthetic, right AFO independent 4. Stairs with rail left prosthetic, right AFO independent 5. Independent with home exercise program 6. Independent supine to/ from sit Plan of Care/Treatment Plan: 1-2x/day, 7 days/week x 1 week. Plan of care has been reviewed with the [employer]EDER providing the service under Physical Therapy direction. Initiate Physical Therapy intervention for strengthening, bed mobility, transfers, gait, stairs, balance training, use of assistive device. DISCHARGE RECOMMENDATIONS: [X] Home with no services vs HH PT TREATMENT CODE/TIME: 92743/46942 [id number] Please sign an return this page within 30 days if you agree with the above POC. Thank you! Physician Signature Date [facility]
--- NOTE | 2023-10-22 17:02 | PT.INTREAT ---
PT Notes Visit Reasons: Acute gangrenous cholecystitis Inpatient Physical Therapy Treatment Note [facility] Date: October 22, 2023 PRECAUTIONS: Standard, fall risk, IV, indwelling catheter, right abdominal wall drain, left BKA, right AFO SUBJECTIVE: Patient reports difficulty donning prosthetic and AFO due to increase edema. OBJECTIVE: Patient energetic motivated to participate in ambulation. ? PAIN: 3 right abdominal wall VITALS: ?O2 sats 94% or greater throughout session on room air Therapeutic Activities ([id number][]): Direct one-on-one instruction in dynamic activities to improve functional performance. ? BED MOBILITY/TRANSFERS? Sit-stand: SBA with cues for hand placement? Stand-sit: SBA with cues for hand placement] ? Bed-Chair: SBA with FWW ? Chair-bed: [] SBA with FWW Gait Training (24069d6): Direct one-on-one instruction and skilled instruction in: [X] turning and movement with proper form [X] Provided verbal cues for equipment management and technique [X] Provided instruction in gait pattern to increase trunk extension [X] Patient education regarding pacing and breathing techniques to maximize activity tolerance? GAIT? Assistive Device: FWW?, left BKA prosthetic, right AFO ? Weight bearing: Full Assist: CGA with cues to keep feet within frame of FWW Distance: 200 feet x 2 with rest between distances? Deviation: Wide base of support, intermittent decreased foot clearance on right, increased forward flexion of trunk with increased weightbearing through bilateral upper extremities. ? ASSESSMENT: Patient demonstrates limitation donning and doffing prosthetic and right AFO due to abdominal wall pain limited forward flexion of trunk. Patient is able to instruct caregivers independently in donning and doffing both devices. He requires cues for hand placement pushing up to stand and reaching back prior to sitting. PLAN: Continue skilled PT for balance, strengthening, gait ,stairs, transfers TREATMENT CODE/TIME: 03164/1425?1448 DISCHARGE RECOMMENDATION: Home with no services versus HH PT
[2023-10-22] MEDS: Insulin Aspart 300 UNITS/3 ML PEN SC (17:14)
--- NOTE | 2023-10-22 17:31 | W.PM.PROGNOT ---
Date of Service Date of service: 10/22/23 Time of Service: 17:31 Assessment and Plan Assessment and plan (1) Elevated bilirubin: Status: Acute Assessment and plan: Bilirubin and white blood cell count are normalizing today, and the negative MRCP is certainly reassuring. I will pull the Mckeon out, and advance his diet tonight. Will see how he does tomorrow, but I would anticipate discharge in the next day or 2 Subjective Subjective Interval history since last seen: Suhail looks a lot better today. He has been up and ambulating a bit. He is tolerating liquids without any symptoms. He underwent an MRCP that was negative today. Exam GI Other: Abdomen is soft, and minimally distended. Incision is clean, and there are no signs of infection. Drainage is serosanguineous. Objective Last Vital Signs Temp 99.0 F 10/22/23 00:00 Pulse 79 10/22/23 14:41 Resp 18 10/22/23 15:30 BP 96/55 L 10/22/23 14:41 Pulse Ox 92 10/22/23 15:30 Laboratory Results - last 24 hr 10/22/23 08:20 WBC 12.10 H RBC 3.49 L Hgb 10.4 L Hct 32.6 L MCV 93 MCH 29.8 MCHC 31.9 L RDW 13.8 Plt Count 450 H MPV 11.2 H Sodium 137 Potassium 4.3 Chloride 103 Carbon Dioxide 25.7 Anion Gap 8.3 BUN 22 H Creatinine 1.4 H Est GFR (CKD-EPI 2020) 53.40 Glucose 162 H Calcium 8.5 Total Bilirubin 2.80 H Conjugated Bilirubin 2.3 H AST 72 H ALT 118 H Alkaline Phosphatase 167 H Total Protein 6.3 L Albumin 2.4 L Time Spent with Patient Time Spent with Patient: 25-34 minutes Time was spent: preparing to see the patient(eg.review tests), ordering medications,tests, procedures, indepentently interpreting results, counseling the patient and care coordination
--- NOTE | 2023-10-22 17:44 | CHAPLAIN ---
Suhail was sitting up in bed in the chair when I visited. He told me that he came in on Saturday because he was fishing with a friend and began to not feel well. He was going to go home, but the friend said he began to look worse and brought him to the ED. He had his gallbladder taken out. Suhail was pleasant and easily engaged in a conversation. He said he's impatient to be discharged, but added that he's received good nursing care here and is enjoying interacting with the staff. His has been in to visit him, as well as a fishing jeri. I explained my role and offered support. He told me he would ask for me if he needed able bodied tankerman support.
[2023-10-22] MEDS: MORPHine 4 MG/ML SYR 3 MG IVP (19:19)
[2023-10-22] MEDS: cefTRIAXone 2 GM/50 ML BAG IVPB (20:18)
[2023-10-22] MEDS: Insulin Glargine 300 UNITS/3 ML PEN 48 UNITS SC (20:19)
[2023-10-23] VITALS (39 sets, daily range): BP systolic 101–129; BP diastolic 54–83; PULSE 68–89; RESP 10–26; TEMP 36.4–36.6; O2SAT 87–96
[2023-10-23] MEDS: metroNIDAZOLE 500 MG/100 ML BAG 100 MG IVPB ×3 (00:15→16:03)
[2023-10-23] MEDS: Melatonin 3 MG TAB 9 MG PO (02:05)
[2023-10-23] MEDS: ACETAMINOPHEN 1,000 MG/100 ML BTL 400 MG IVPB (03:46)
[2023-10-23] MEDS: Normal Saline Flush 10 ML SYR IVP ×3 (06:02→20:08)
[2023-10-23 06:31] LABS: HCT 30.7 % (40.0-50.0); HGB 9.8 g/dL (13.5-17.5); MCH 29.4 pg (27.0-33.0); MCHC 31.9 % (32.0-36.0); MCV 92 fL (80-95); MPV 10.6 fL (8.0-11.0); Platelet Count 666 10^3/uL (130-400); RBC 3.33 10^6/uL (4.36-5.78); RDW 13.7 % (11.8-14.1); RDW-SD 46.5 fL; WBC 10.43 10^3/uL (4.4-10.8)
[2023-10-23 06:48] LABS: ALT 89 U/L (16-63); AST 52 U/L (15-37); Albumin 2.3 g/dL (3.4-5.0); Alkaline Phosphatase 159 U/L (46-116); Bilirubin, Direct 1.1 mg/dL (0.0-0.2); Bilirubin, Total 1.31 mg/dL (0.2-1.0); Total Protein 6.2 g/dL (6.4-8.2)
[2023-10-23] MEDS: Docusate Sodium 100 MG CAP PO (08:01)
[2023-10-23] MEDS: Enoxaparin 40 MG/0.4 ML SYR SC (08:02)
[2023-10-23] MEDS: Pantoprazole 40 MG VIAL IVP (08:02)
[2023-10-23] MEDS: Polyethylene Glycol 3350 17 GM PACKET PO (08:02)
[2023-10-23] MEDS: Lisinopril 2.5 MG TAB PO (08:02)
[2023-10-23] MEDS: Gabapentin 300 MG CAP 900 MG PO ×2 (08:46→20:05)
--- NOTE | 2023-10-23 09:11 | PDOC.CMPRO ---
Date of service: 10/23/23 Time of Service: 09:11 Care Management Progress Note Progress Note Text Progress Note Text: Eloy was sitting up in bed when CM met with him. He has been moved out of the ICU and informed CM that he is doing much better. His biggest complaint today was that he has swelling in his lower extremities and abdomen. He stated he feels this is from inactivity. Eloy reported that he has been told he may be able to go home tomorrow which he is very happy about. Discharge Potential Discharge Needs: PCP F/U Appt and Surgical F/U Appt Anticipated Barriers to Discharge: None Identified Patient/Family Education Needs: Review discharge instructions, discuss Ask Me Three Transportation: Private vehicle Plan: Anticipate Jason will be discharged home, possibly with new home health services, when medically cleared. He will follow up with his surgeon and plan of care and transport with family. CM will follow and support discharge planning needs. SDOH(Care Management) Screening Will the Patient Participate in the Screening?: Yes Do you worry about having a steady place to live?: no Problems where you live: no known problems In the past 12 months, have you had to go without electric, gas, oil or water in your home?: no Have you or anyone in your house had to go without enough food to eat?: no Has lack of transportation kept you from medical appointments or from doing things needed for daily living?: no Has anyone in your support network made you feel unsafe for any reason?: no
--- NOTE | 2023-10-23 11:24 | PHACLINREV_ITS ---
Pharmacy Admission Review Admission Clinical Review Admission Pharmacy Review: Former smoker (Acute) Postoperative hypoxia (Acute) Elevated bilirubin (Acute) Elevated transaminase level (Acute) Acute hyperglycemia (Acute) SCAR (acute kidney injury) (Acute) Acute cholecystitis (Acute) Leg edema (Acute) Type 2 diabetes mellitus (Acute) Spinal stenosis (Acute) Sleep apnea (Acute) Hyperlipidemia (Acute) Diabetic polyneuropathy (Acute) levofloxacin Allergy (Severe, Verified 10/20/23 15:33) critical onion Allergy (Severe, Verified 10/20/23 15:33) raw onion Penicillins Allergy (Severe, Verified 10/20/23 15:33) Anaphylaxsis Sulfa (Sulfonamide Antibiotics) Allergy (Severe, Verified 10/20/23 15:33) Hives sulfamethoxazole (From Bactrim) Allergy (Severe, Verified 10/20/23 15:33) Hives trimethoprim (From Bactrim) Allergy (Severe, Verified 10/20/23 15:33) Hives simvastatin Adverse Reaction (Severe, Verified 10/20/23 15:33) faints Resuscitation Status Full Code Height 6 ft 1 in Weight 120.4 kg Pharmacy Admission Review Renal Dosing Renal Dosing: BUN 22 mg/dL (7-18) H 10/22/23 08:20 Creatinine 1.4 mg/dL (0.70-1.30) H 10/22/23 08:20 Medications needing adjustments: Reviewed (CrCl 64.8 mL/min) List of meds needing interventions: Current medications are okay Anticoagulation Anticoagulation: Hgb 9.8 g/dL (13.5-17.5) L 10/23/23 05:47 Hct 30.7 % (40.0-50.0) L 10/23/23 05:47 Plt Count 666 10^3/uL (130-400) H 10/23/23 05:47 Creatinine 1.4 mg/dL (0.70-1.30) H 10/22/23 08:20 DVT Prophylaxis: Reviewed (Hgb decreased from 10.4, PLT count increased from 450) Medications: Enoxaparin (40mg daily) Opiate Usage Evaluate Pain Scale/Pains Meds: Reviewed (PRN morphine) Scheduled Bowel Reg ordered if on Opiates?: Yes (Miralax/docusate) Relevant Labs Relevant Labs: Sodium 137 mmol/L (136-145) 10/22/23 08:20 Potassium 4.3 mmol/L (3.5-5.1) 10/22/23 08:20 Chloride 103 mmol/L (98-107) 10/22/23 08:20 Magnesium 2.0 mg/dL (1.8-2.4) 10/21/23 05:48 Electrolytes, C-Reactive P, ESR: Reviewed (AST/ALT decreased from 72/118 to 52/89) DM Control DM Control: Glucose 162 mg/dL (74-106) H 10/22/23 08:20 Hemoglobin A1c 6.7 % (<5.7) H 10/21/23 05:48 Finger Stick Blood Glucose 74 0724 Finger Stick Blood Glucose 74 0724 DM Control: Reviewed Insulin Dosing, Diabetic Medication: Patient has order for SS insulin and glargine 48 units at bedtime Cardiac Review Cardiac Review: NT-Pro-B Natriuret Pep 1547 pg/mL (<300) H 10/21/23 05:48 BP, HR, EF%: Reviewed (BP and HR WNL) List meds needing interventions: Patient is on lisinopril 2.5mg PO once daily QTc Review QTc: Reviewed (418 from 08/26/19 - most recent EKG on file) IV to PO Switch IV Medications: Intervened (acetaminophen, ceftriaxone, metronidazole, morphine, ondansetron and pantoprazole. Reached out to provider about IV to PO for APAP, p antoprazole and ondansetron. Provider was okay with these being changed to PO orders.) Home Meds Home Med List reviewed: Intervened Relevent Home Meds Not ordered & why?: Aspirin, vitamin D3, Vitamin B 12 injection (monthly), Trulicity (on hold), Tresiba (has order for Lantus), metformin (on hold) and oxycodone (has order for PRN IVP morphine) Updated home med list: per overnight pharmacy med rec note, patients Trulicity had been increased from 1.5mg to 3mg weekly but it was not updated on home med list. Updated this morning. Current Meds Current Medication Order Review: Intervened Comments: Changed APAP, pantoprazole and ondansetron to PO orders - approved by provider. Pharmacy Antibiotic Review Relevant Labs: WBC 10.43 10^3/uL (4.4-10.8) 10/23/23 05:47 Microbiology 10/20/23 17:42 Blood Culture - Preliminary Blood NO GROWTH 48 HOURS Pharmacy Antibiotic Activity: C/S review and Reviewed, no change Comments: Patient is on metronidazole and ceftriaxone, day 3, for acute gangrenous cholecystitis. POD #3 cholecystectomy. WBC decreased from 12.1 and blood cultures showing no growth.
[2023-10-23] MEDS: Acetaminophen 500 MG TAB 1000 MG PO ×2 (11:44→20:06)
--- NOTE | 2023-10-23 13:33 | PT.INTREAT ---
PT Notes Visit Reasons: Acute gangrenous cholecystitis Inpatient Physical Therapy Treatment Note [facility] Date: October 23, 2023 PRECAUTIONS: Standard, fall risk, IV, indwelling catheter, right abdominal wall drain, left BKA, right AFO SUBJECTIVE: Patient reports he is too swollen to wear the liner to his prosthetic. as well as his compressive sock for his right foot. OBJECTIVE: Patient energetic motivated to participate in ambulation.seated in chair without prosthetic or AFO on. Noted increased edema and discoloration to Left residual limb. and increased edema to right foot and lower leg. Nursing aware. ? PAIN: 3 right abdominal wall VITALS: ?monitored via telemetry Therapeutic Activities (28467): Direct one-on-one instruction in dynamic activities to improve functional performance. ? BED MOBILITY/TRANSFERS? Sit-stand: SBA with cues for hand placement? ?x 5 reps 1st and 2nd session Darcy from 18 height ? Stand-sit: SBA with cues for hand placement] ? ?x 5 reps from 20 height ?SBA at 18 height ? Bed-Chair: SBA with FWW ? Chair-bed: SBA with FWW 2nd session: bed mobility with rails and use of R knee flexion to roll CGA with increased time; supine to from sit with HOB flat as pt has a t home via sidelying min A for trunk. [X] Patient education regarding pacing and breathing techniques to maximize activity tolerance?GAIT? Assistive Device: FWW?, left BKA prosthetic without foam liner due to increased edema, right AFO ? Weight bearing: Full Assist: SBA with cues to keep feet within frame of FWW Distance: 200 feet x 2 with rest between distances? Deviation:pt demonstrates wide EKLLY and ability to keep BLE within frame of FWW. He able to rely less on BUE for advancement of BLE. ? ASSESSMENT: Patient demonstrates limitation donning and doffing prosthetic and right AFO due to abdominal wall pain limited forward flexion of trunk. Patient is able to instruct caregivers independently in donning and doffing both devices. He demonstrates safe hand placement with stand to sit this session.Although required increased assistance with lower seat height. He continues to prefer to press up through the FWW to stand versus pushing up from chair. Pt with inableity to don liner to prosthetic d/t edema. This likely is related to increased fluids. He has no reddened areas at end of session with prosthetic and AFO removed. REcommeded only to be applied for transfers and amulation until edema has reduced to maintain skin integrity. PLAN: Continue skilled PT for balance, strengthening, gait ,stairs, transfers TREATMENT CODE/TIME: 61929 x25 mins for 2 units/2193-6031; 2nd session 86905 x 30 mins for 2 units [id number] DISCHARGE RECOMMENDATION: Home with no services versus PT
--- NOTE | 2023-10-23 15:42 | W.PC.ACHO ---
Registration Status: Primary Language: Preferred Language: ED Information & Data Chief Complaint Abd Prob 10/20/23 22:04 Triage Note 3 days of abdominal 10/20/23 15:30 discomfort from R side to middle. sugars have been running high, felt nauseous this morning. last bm yesterday. Medical / Surgical History (Last Reviewed 10/21/23 @ 13:45 by Erich Marie) Infrarenal abdominal aortic aneurysm (AAA) without rupture Biceps tendon rupture Hx of fall Change in bowel function Leg weakness Lightheadedness Rotator cuff tear arthropathy of right shoulder Rotator cuff tear arthropathy of left shoulder Impacted cerumen, right ear Infected sebaceous cyst of skin Weight gain Sebaceous cyst (~08/19/19) Rupture of right distal biceps tendon (~09/2018) Osteomyelitis Foot drop, right Diabetic foot ulcer Ulcer of foot Shoulder pain, left Calf pain Bronchitis Physical deconditioning Insomnia Skin irritation Abdominal pain DNR (do not resuscitate) Myalgia Balance problem B12 deficiency Dysphagia Partial tear of left rotator cuff Cellulitis of right toe Impingement syndrome of left shoulder Other synovitis and tenosynovitis, left shoulder Complete rotator cuff tear of left shoulder Discharge planning issues DVT prophylaxis Amputated toe of right foot Acute appendicitis with localized peritonitis Hernia of anterior abdominal wall (Last Reviewed 10/21/23 @ 13:45 by Erich Marie) History of transmetatarsal amputation of right foot History of colonoscopy H/O esophagogastroduodenoscopy (~06/09/18) History of spinal surgery Status post rotator cuff surgery Rotator Cuff Repair Repair of inguinal hernia Appendectomy (06/11/16) Amputation Most Recent Vital Signs Temperature 37.2 C 10/22/23 00:00 Temperature Source Temporal Artery Scan 10/22/23 02:54 Pulse 71 10/23/23 12:02 Pulse 76 10/23/23 14:30 Respiratory Rate 19 10/23/23 14:30 Respiratory Effort Normal, Non-Labored 10/22/23 02:54 Respiratory Depth Shallow 10/22/23 02:54 Respiratory Pattern Normal 10/22/23 02:54 Blood Pressure 102/54 L 10/23/23 12:02 Blood Pressure Mean 69 10/23/23 12:02 Blood Pressure Position Sitting 10/22/23 02:54 Pulse Oximetry 96 10/23/23 14:30 Oxygen Delivery Method Nasal Cannula 10/22/23 07:53 Oxygen Flow Rate 1 10/22/23 07:53 Pain Level 3 10/22/23 02:54 Allergies levofloxacin Allergy (Severe, Verified 10/20/23 15:33) critical Levaquin: SWEATS, CHILLS, ARM PAIN onion Allergy (Severe, Verified 10/20/23 15:33) raw onion Penicillins Allergy (Severe, Verified 10/20/23 15:33) Anaphylaxsis pt. reports anaphylaxis Sulfa (Sulfonamide Antibiotics) Allergy (Severe, Verified 10/20/23 15:33) Hives sulfamethoxazole (From Bactrim) Allergy (Severe, Verified 10/20/23 15:33) Hives trimethoprim (From Bactrim) Allergy (Severe, Verified 10/20/23 15:33) Hives simvastatin Adverse Reaction (Severe, Verified 10/20/23 15:33) faints Precautions Isolation Standard precaution 10/20/23 18:15 Active Medications Generic Name Dose Route Start Last Admin Trade Name Freq PRN Reason Stop Dose Admin Acetaminophen 1,000 mg 10/23/23 12:00 10/23/23 11:44 Acetaminophen 500 Mg Tab PO 1,000 mg Q8H [facility] Administration Docusate Sodium 100 mg 10/21/23 20:00 10/23/23 08:01 Docusate Sodium 100 Mg Cap PO 11/20/23 08:29 100 mg BID [facility] Administration Ezetimibe 10 mg 10/21/23 08:30 10/21/23 09:10 Ezetimibe 10 Mg Tab PO 11/20/23 08:29 10 mg DAILY [facility] Administration Enoxaparin Sodium 40 mg 10/21/23 08:30 10/23/23 08:02 Enoxaparin 40 Mg/0.4 Ml Syr SC 40 mg DAILY [facility] Administration Gabapentin 900 mg 10/21/23 08:30 10/23/23 08:46 Gabapentin 300 Mg Cap PO 900 mg DAILY [facility] Administration Gabapentin 900 mg 10/21/23 20:00 10/22/23 20:19 Gabapentin 300 Mg Cap PO 900 mg HS [facility] Administration Metronidazole 500 mg in 100 mls @ 100 mls/hr 10/21/23 08:00 10/23/23 09:10 Flagyl IVPB 10/25/23 07:59 Infused Q8H [facility] Infusion Ceftriaxone Sodium/Dextrose 2 gm in 50 mls @ 100 mls/hr 10/21/23 20:00 10/23/23 00:11 Rocephin IVPB Infused Q24H [facility] Infusion Insulin Aspart 0 units 10/21/23 08:00 10/23/23 11:45 Insulin Aspart 300 Units/3 Ml Pen SC 11/20/23 07:59 Not Given 0800,1200,1700 [facility] Protocol Insulin Glargine 48 units 10/22/23 20:00 10/22/23 20:19 Insulin Glargine 300 Units/3 Ml Pen SC 48 units HS [facility] Administration Lisinopril 2.5 mg 10/21/23 08:30 10/23/23 08:02 Lisinopril 2.5 Mg Tab PO 11/20/23 08:29 2.5 mg DAILY [facility] Administration Melatonin 9 mg 10/21/23 00:49 10/23/23 02:05 Melatonin 3 Mg Tab PO 9 mg HS PRN PRN Administration Morphine Sulfate 3 mg 10/21/23 11:29 10/22/23 19:19 Morphine 4 Mg/Ml Syr IVP 11/20/23 00:24 3 mg Q1H PRN PRN Administration Polyethylene Glycol 17 gm 10/21/23 17:15 10/23/23 08:02 Polyethylene Glycol 3350 17 Gm Packet PO 17 gm DAILY [facility] Administration Sodium Chloride 0 ml 10/21/23 00:49 10/23/23 06:02 Normal Saline Flush 10 Ml Syr IVP 11/20/23 00:09 30 ml PRN PRN Administration Sodium Chloride 0 ml 10/21/23 08:30 10/23/23 08:30 Normal Saline Flush 10 Ml Syr IVP 11/20/23 08:29 20 ml BID [facility] Administration IV IV Catheter Type [Right Saline Lock Forearm] IV Catheter Type [Left Saline Lock Antecubital] IV Catheter Type [Right Hand] Saline Lock IV Catheter Gauge [Left 20 Antecubital] IV Catheter Gauge [Right Hand] 20 Diagnostics 10/23/23 Range/Units 05:47 WBC 10.43 (4.4-10.8) 10^3/uL RBC 3.33 L (4.36-5.78) 10^6/uL Hgb 9.8 L (13.5-17.5) g/dL Hct 30.7 L (40.0-50.0) % MCV 92 (80-95) fL MCH 29.4 (27.0-33.0) pg MCHC 31.9 L (32.0-36.0) % RDW 13.7 (11.8-14.1) % Plt Count 666 H (130-400) 10^3/uL MPV 10.6 (8.0-11.0) fL Total Bilirubin 1.31 H (0.2-1.0) mg/dL Conjugated Bilirubin 1.1 H (0.0-0.2) mg/dL AST 52 H (15-37) U/L ALT 89 H (16-63) U/L Alkaline Phosphatase 159 H (46-116) U/L Total Protein 6.2 L (6.4-8.2) g/dL Albumin 2.3 L (3.4-5.0) g/dL 10/20/23 17:42 Blood Culture - Preliminary Blood NO GROWTH 48 HOURS [id number] Documentation Fingerstick Glucose Start: 10/20/23 20:00 Freq: .Stat Status: Complete Protocol: Activity Type Activity Date Activity User E-sign Co-sign Detail Recorded Client Recorded Date Recorded By Document 10/20/23 20:04 BKG DAEMON(5) [id number] 10/20/23 20:07 BKG DAEMON(6) Fingerstick Glucose Start: 10/20/23 20:07 Freq: .Q1H Status: Discharge Protocol: Activity Type Activity Date Activity User E-sign Co-sign Detail Recorded Client Recorded Date Recorded By Document 10/21/23 00:04 [id number] 10/21/23 00:19 Fingerstick Glucose Start: 10/21/23 00:49 Freq: .AC Status: Active Protocol: Activity Type Activity Date Activity User E-sign Co-sign Detail Recorded Client Recorded Date Recorded By Document 10/23/23 11:44 BKG DAEMON(7) [id number] 10/23/23 11:45 BKG DAEMON(8) Intake and Output - 24 Hour Total 10/20/23 15:27 thru 10/23/23 12:38 Intake Total 8707.5 Output Total 4195 Balance 4512.5 Weight 120.4 kg Intake: IV 5765.5 Oral 2942 Output: Drainage 295 Right Upper Anterior Abdomen 295 Urine 3400 Estimated Blood Loss 500 Other: Urine Color Light Kaykay Urine Appearance Clear Urine Odor Strong Comment Mckeon intact and draining clear yellow/orange urine with sediment. Emesis Description None Voiding Methods Urinal Urinary Catheter Urinary Catheter Date of 10/20/23 Insertion [Urethral (Mckeon)] Urinary Catheter Date of 10/20/23 Insertion [Urethral (Mckeon)] Time of insertion [Urethral ( 21:24 Mckeon)] Time of insertion [Urethral ( 21:24 Mckeon)] Falls Risk Assessment History of Falls Previous History 10/21/23 00:57 Contributing Factors Impairments 10/21/23 00:57 Ambulatory Aids Uses ambulatory device + 10/21/23 00:57 Tubes/Lines With any additional score 10/21/23 00:57 Gait Evaluation W/any additional score 10/21/23 00:57 Cognition No cognitive impairment 10/20/23 18:17 Fall Total Score 88 10/21/23 00:57 Level of Risk Maximum Risk 10/21/23 00:57 Problems (Last Reviewed 10/21/23 @ 13:45 by Erich Marie) Former smoker (Acute) Postoperative hypoxia (Acute) Elevated bilirubin (Acute) Elevated transaminase level (Acute) Acute hyperglycemia (Acute) SCAR (acute kidney injury) (Acute) Acute cholecystitis (Acute) Leg edema (Acute) Type 2 diabetes mellitus (Acute) Spinal stenosis (Acute) Sleep apnea (Acute) Hyperlipidemia (Acute) Diabetic polyneuropathy (Acute) Notes 10/20/23 17:26 Nursing Notes by Liane Merino Nursing Note: o2 trended down to 86% on room air following administration of morphine; started on 2lpm via supplemental o2 and oxygen titrated up to 92%. Provider aware. Initialized on 10/20/23 17:26 - END OF NOTE v v v v v v v v v Sending and/or Receiving Nurses: Please use comment section below to note any information pertinent to the patient hand-off not included above. Information / Comments: Report received from: Faby @ 1328, all questions answered and belongings brought with patient
[2023-10-23] MEDS: Insulin Aspart 300 UNITS/3 ML PEN SC (17:13)
[2023-10-23] MEDS: Insulin Glargine 300 UNITS/3 ML PEN 48 UNITS SC (20:08)
[2023-10-23] MEDS: cefTRIAXone 2 GM/50 ML BAG IVPB (20:18)
[2023-10-24] MEDS: metroNIDAZOLE 500 MG/100 ML BAG 100 MG IVPB ×2 (00:54→08:19)
[2023-10-24] MEDS: Normal Saline Flush 10 ML SYR IVP ×2 (00:55→08:10)
--- NOTE | 2023-10-24 07:49 | W.PM.PROGNOT ---
Date of Service Date of service: 10/24/23 Time of Service: 07:49 Subjective Subjective Interval history since last seen: Jason reports he is feeling well and the discomfort he was having with activity is progressively decreasing. Denies any nausea or vomiting. Exam Const General: cooperative, healthy appearing and comfortable Orientation: alert and oriented x3 Resp Effort & Inspection: normal respiratory effort, no audible wheezes and no cough GI Other: Soft, slightly tender to palpation Incision site is open to air. Clean, with brandy in place. No erythema, swelling or drainage noted. SHERLEY drain noted with minimal serosangineous drainage. Given minimal output over the past few days, this can be pulled prior to d/c Continue activity as tolerated with ambulation. Sitting up in the chair for all meals. Pain is well controlled and improving. Awaiting morning lab results. If Hgb is stable anticipate d/c home later today. He will need to follow up in the surgical office next week for post op visit and staple removal. Objective Last Vital Signs Temp 36.6 C 10/23/23 19:44 Pulse 75 10/23/23 19:44 Resp 18 10/23/23 19:44 BP 129/76 10/23/23 19:44 Pulse Ox 96 10/23/23 19:44 Time Spent with Patient Time Spent with Patient: <25 minutes Time was spent: preparing to see the patient(eg.review tests), obtaining and/or reviewing separately otained hiistory and counseling the patient
[2023-10-24 08:00] VITALS: BP 113/77; PULSE 67; RESP 18; TEMP 36.6; O2SAT 99
[2023-10-24] MEDS: Gabapentin 300 MG CAP 900 MG PO (08:09)
[2023-10-24] MEDS: Enoxaparin 40 MG/0.4 ML SYR SC (08:09)
[2023-10-24] MEDS: Pantoprazole 40 MG TABCR PO (08:09)
[2023-10-24 08:17] LABS: HCT 33.9 % (40.0-50.0); MCH 29.7 pg (27.0-33.0); MCHC 32.4 % (32.0-36.0); MCV 92 fL (80-95); MPV 10.4 fL (8.0-11.0); RDW 13.8 % (11.8-14.1); RDW-SD 46.7 fL; WBC 10.94 10^3/uL (4.4-10.8)
[2023-10-24] MEDS: Insulin Aspart 300 UNITS/3 ML PEN SC ×2 (08:17→12:39)
[2023-10-24 08:30] LABS: Platelet Count 781 10^3/uL (130-400)
[2023-10-24] MEDS: Lisinopril 2.5 MG TAB PO (09:31)
[2023-10-24 11:34] LABS: Lab Add On Test DONE
[2023-10-24 11:48] LABS: C-Reactive Protein 7.96 mg/dL (<or=0.5)
--- NOTE | 2023-10-24 12:54 | W.PM.DSUDISC ---
Date of service: 10/24/23 Time of Service: 12:56 Discharge Plan Disposition Patient Disposition: Home Condition: Improving Discharge Details Reason For Visit: Acute gangrenous cholecystitis Admit Date/Time: 10/21/23 11:30 Admit Provider: Lamont Siu Attending Provider: Lamont Siu Primary Care Provider: Lilli Packer V Hospital Course Hospital Course: see addendum Home Meds and New Rx's Prescriptions: New oxycodone 5 mg tablet 15 mg PO Q4H PRNQty: 14 0RF cefpodoxime 200 mg tablet 400 mg PO BID 5 Days Qty: 20 0RF Rx Instructions: must administer with a meal/food Continued lisinopril 2.5 mg tablet 2.5 mg PO DAILY gabapentin 300 mg capsule See Rx Instructions PO BID Rx Instructions: orally twice a day; PCP med list reports 900mg Qam and 1,500 Qpm diphenhydramine-acetaminophen [Tylenol PM Extra Strength] 25-500 mg tablet 2 - 3 tab PO QHS PRN ezetimibe [Zetia] 10 mg tablet 10 mg PO DAILY cholecalciferol (vitamin D3) 50 mcg (2,000 unit) capsule 50 mcg PO DAILY insulin aspart U-100 [Novolog PenFill U-100 Insulin] 100 unit/mL cartridge 1 sliding scale dose SC .before meals Rx Instructions: up to a total of 55units in a 24hr period. cyanocobalamin (vitamin B-12) 1,000 MCG/ML solution 1,000 mcg IJ .monthly melatonin 3 mg Tablet 10 mg PO HS PRN pantoprazole 40 mg tablet,delayed release (DR/EC) 40 mg PO DAILY Patient Comments: TAKE 1 TABLET BY MOUTH ONCE DAILY docusate sodium [Colace] 100 MG capsule 100 mg PO DAILY PRN metformin 850 mg tablet 850 mg PO .nightly Patient Comments: TAKE 1 TABLET BY MOUTH ONCE DAILY IN THE EVENING insulin degludec [Tresiba FlexTouch U-200] 200 unit/mL (3 mL) insulin pen 60 unit SUBCUT .nightly Patient Comments: med list noted 80 units, patient stated taking 60 units Trulicity 3 mg/0.5 mL pen injector 3 mg SUBCUT .WEEKLY Patient Comments: INJECT CONTENTS OF ONE PEN INJECTOR SUBCUTANEOUSLY ONCE WEEKLY FOR DIABETES aspirin [Aspirin Low-Strength] 81 MG tablet,chewable 81 mg PO DAILY oxycodone 15 MG tablet 15 mg PO Q6H PRN (Reason: pain) Discharge Instructions Additional Instructions: Keep an ice bag on the incision. 20 minutes on and 20 minutes off. Ice keeps the swelling down and swelling causes pain. Make sure you wrap the ice pack in a towel and don't apply directly to the skin. -No driving for 7 days or of you are taking narcotic pain medications. -If you have brandy or sutures in place, they will be removed at your clinic appointment in 7-10 days. [facility] Surgery Clinic: [phone] -Follow-up with Dr. Siu 11/04 @ 11:15 -Yogurt daily while on antibiotics Avoid fatty or greasy foods; introduce these slowly, with care, after about 1 month. High-fat foods include: ? Foods that are fried, like [place] fries and potato chips ? High-fat meats, such as morris, bologna, sausage, ground beef, and ribs, pork products ? High-fat dairy products, such as cheese, ice cream, cream, whole milk, and sour cream ? Pizza ? Foods made with lard or butter ? Creamy soups or sauces ? Meat gravies ? Chocolate ? Oils, such as palm and coconut oil ? Skin of chicken or turkey ? Nuts and nut butters ? Avocadoes -no straining to move bowels -pain meds are very constipating: if you do not move your bowels daily take a dose of OTC Miralax -It is ok to shower. No bathe, soaking, swimming or hot tubs -Keep wound clean and dry. Wash incision with soap and water daily. Pat dry, don't rub. -Protein supplements daily. You may find that your appetite is smaller. Eat 3-6 small meals throughout the day. It is important to drink lots of water after surgery, 6-10 glasses a day. -If you were given an incentive spirometry (breathing sales representative girls' apparel?), continue to do this 10x/hour while awake. -We do want you up walking, at least 5-6 times per day. This is very important to prevent pneumonia and blood clots. You can climb stairs, take them slowly. -No lifting over 5 pounds for 4 weeks. This is very important to avoid developing a hernia in your incision. -You may find that you are very tired after surgery- this is normal. -please do not smoke for a minimum of 72 hours after surgery. Stand Alone Forms: Nursing Discharge Form Referrals: Lamont Siu MD [ [facility] STAFF PHYSICIAN] - 11/05/23 11:15 am Activity:: see above Equipment/Supplies:: No Equipment Needed Diet:: low fat/carb controlled Discharge Orders Discharge Orders: Discharge Order (Routine); Ordered 10/24/23 Ordered By: Gauri Perkins DS: Diagnosis Discharge Diagnosis (1) Hyperlipidemia: Status: Acute (2) Type 2 diabetes mellitus: Status: Acute (3) Acute cholecystitis: Status: Acute (4) SCAR (acute kidney injury): Status: Acute (5) Amputation of leg: Status: Acute (6) Amputation of right foot: Status: Acute (7) Spinal stenosis: Status: Acute (8) Diabetic polyneuropathy: Status: Acute (9) Peripheral neuropathy: Status: Acute (10) Sleep apnea: Status: Acute (11) Current non-smoker but past smoking history unknown: Status: Acute (12) S/P cholecystectomy:
--- NOTE | 2023-10-24 13:24 | PTTR_ITS ---
PT Notes Visit Reasons: Acute gangrenous cholecystitis Inpatient Physical Therapy Treatment Note [facility] Date: October 24, 2023 PRECAUTIONS: Standard, fall risk, IV, right abdominal wall drain, left BKA, right AFO SUBJECTIVE: Patient reports he is too swollen to wear the liner to his prosthetic. Pt reports nnurse applied huan wrap to his RLE to manage the swelling. OBJECTIVE: Patient energetic motivated to participate in ambulation.supine in bed without prosthetic or AFO on. Edema continues in his BLE no discoloration noted to Left residual limb. Huan wrap in place from knee down including foot RLE.? PAIN:2/10 right abdominal wall VITALS: ?monitored via telemetry Therapeutic Activities (63903): Direct one-on-one instruction in dynamic activities to improve functional performance. ? BED MOBILITY/TRANSFERS? Sit-stand: Independent without use of UE ?x 5 reps ? Stand-sit: Independent without use of UE ? ?x 5 reps ? Bed-Chair: Independent with FWW ? Chair-bed: Independent with FWW [X] Patient education regarding pacing and breathing techniques to maximize activity tolerance?GAIT? Assistive Device: FWW?, left BKA prosthetic without foam liner due to increased edema, right AFO ? Weight bearing: Full Assist: Independent Distance: 100 feet x 2 with rest between distances? Deviation:pt demonstrates wide KELLY and ability to keep BLE within frame of FWW. He able to rely less on BUE for advancement of BLE. ?Excessive wt shift to left during midstance on Left d/t inability to place liner related to swelling therefore leg length discrepancy ? Stairs B rails 5 steps step to pattern SBA ASSESSMENT: Patient skye to don/doff prosthetic independently without liner. He continues with swelling which he has a optical engineering technician at home he will utilize at night to assist with swelling management. Pt demonstrates independence with all functional mobility including stairs. His distance of ambulation reduced today d/t sensation of bottoming out in prosthetic. . Pt with inability to don liner to prosthetic d/t edema. This likely is related to increased fluids. He has no reddened areas at end of session with prosthetic and AFO removed. Recommeded only to be applied for transfers and amulation until edema has reduced to maintain skin integrity. PLAN: Continue skilled PT for balance, strengthening, gait ,stairs, transfers TREATMENT CODE/TIME: 65133 [id number] for 2 units [id number]; DISCHARGE RECOMMENDATION: Home with no services
--- NOTE | 2023-10-24 13:31 | DSE_ITS ---
Date of service: 10/24/23 Time of Service: 13:41 DS: Diagnosis Discharge Diagnosis (1) Hyperlipidemia: Status: Acute (2) Type 2 diabetes mellitus: Status: Acute (3) Acute cholecystitis: Status: Acute (4) SCAR (acute kidney injury): Status: Acute (5) Amputation of leg: Status: Acute (6) Amputation of right foot: Status: Acute (7) Spinal stenosis: Status: Acute (8) Diabetic polyneuropathy: Status: Acute (9) Peripheral neuropathy: Status: Acute (10) Sleep apnea: Status: Acute (11) Current non-smoker but past smoking history unknown: Status: Acute (12) S/P cholecystectomy: Discharge Plan Disposition Patient Disposition: Home Condition: Improving Discharge Details Reason For Visit: Acute gangrenous cholecystitis Admit Date/Time: 10/21/23 11:30 Admit Provider: Lamont Siu Attending Provider: Lamont Siu Primary Care Provider: Lilli Packer V Hospital Course Hospital Course: see addendum Home Meds and New Rx's Prescriptions: New cefpodoxime 200 mg tablet 400 mg PO BID 5 Days Qty: 20 0RF Rx Instructions: must administer with a meal/food oxycodone 15 mg tablet 15 mg PO Q6H PRNQty: 14 0RF Continued lisinopril 2.5 mg tablet 2.5 mg PO DAILY gabapentin 300 mg capsule See Rx Instructions PO BID Rx Instructions: orally twice a day; PCP med list reports 900mg Qam and 1,500 Qpm diphenhydramine-acetaminophen [Tylenol PM Extra Strength] 25-500 mg tablet 2 - 3 tab PO QHS PRN ezetimibe [Zetia] 10 mg tablet 10 mg PO DAILY cholecalciferol (vitamin D3) 50 mcg (2,000 unit) capsule 50 mcg PO DAILY insulin aspart U-100 [Novolog PenFill U-100 Insulin] 100 unit/mL cartridge 1 sliding scale dose SC .before meals Rx Instructions: up to a total of 55units in a 24hr period. cyanocobalamin (vitamin B-12) 1,000 MCG/ML solution 1,000 mcg IJ .monthly melatonin 3 mg Tablet 10 mg PO HS PRN pantoprazole 40 mg tablet,delayed release (DR/EC) 40 mg PO DAILY Patient Comments: TAKE 1 TABLET BY MOUTH ONCE DAILY docusate sodium [Colace] 100 MG capsule 100 mg PO DAILY PRN metformin 850 mg tablet 850 mg PO .nightly Patient Comments: TAKE 1 TABLET BY MOUTH ONCE DAILY IN THE EVENING insulin degludec [Tresiba FlexTouch U-200] 200 unit/mL (3 mL) insulin pen 60 unit SUBCUT .nightly Patient Comments: med list noted 80 units, patient stated taking 60 units Trulicity 3 mg/0.5 mL pen injector 3 mg SUBCUT .WEEKLY Patient Comments: INJECT CONTENTS OF ONE PEN INJECTOR SUBCUTANEOUSLY ONCE WEEKLY FOR DIABETES aspirin [Aspirin Low-Strength] 81 MG tablet,chewable 81 mg PO DAILY oxycodone 15 MG tablet 15 mg PO Q6H PRN (Reason: pain) Discharge Instructions Additional Instructions: Keep an ice bag on the incision. 20 minutes on and 20 minutes off. Ice keeps the swelling down and swelling causes pain. Make sure you wrap the ice pack in a towel and don't apply directly to the skin. -No driving for 7 days or of you are taking narcotic pain medications. -If you have brandy or sutures in place, they will be removed at your clinic appointment in 7-10 days. [facility] Surgery Clinic: [phone] -Follow-up with Dr. Siu 11/04 @ 11:15 -Yogurt daily while on antibiotics Avoid fatty or greasy foods; introduce these slowly, with care, after about 1 month. High-fat foods include: ? Foods that are fried, like [place] fries and potato chips ? High-fat meats, such as morris, bologna, sausage, ground beef, and ribs, pork products ? High-fat dairy products, such as cheese, ice cream, cream, whole milk, and sour cream ? Pizza ? Foods made with lard or butter ? Creamy soups or sauces ? Meat gravies ? Chocolate ? Oils, such as palm and coconut oil ? Skin of chicken or turkey ? Nuts and nut butters ? Avocadoes -no straining to move bowels -pain meds are very constipating: if you do not move your bowels daily take a dose of OTC Miralax -It is ok to shower. No bathe, soaking, swimming or hot tubs -Keep wound clean and dry. Wash incision with soap and water daily. Pat dry, don't rub. -Protein supplements daily. You may find that your appetite is smaller. Eat 3-6 small meals throughout the day. It is important to drink lots of water after surgery, 6-10 glasses a day. -If you were given an incentive spirometry (breathing yard inspector?), continue to do this 10x/hour while awake. -We do want you up walking, at least 5-6 times per day. This is very important to prevent pneumonia and blood clots. You can climb stairs, take them slowly. -No lifting over 5 pounds for 4 weeks. This is very important to avoid developing a hernia in your incision. -You may find that you are very tired after surgery- this is normal. -please do not smoke for a minimum of 72 hours after surgery. Stand Alone Forms: Nursing Discharge Form Referrals: Lamont Siu MD [ [facility] STAFF PHYSICIAN] - 11/05/23 11:15 am Activity:: see above Equipment/Supplies:: No Equipment Needed Diet:: low fat/carb controlled Discharge Orders Discharge Orders: Discharge Order (Routine); Ordered 10/24/23 Ordered By: Gauri Perkins DS: Summary Time Spent with Patient providing and/or coordinating discharge services: Less than 30 minutes Status at Discharge Functional status at discharge: uses cane/walker Overall status at discharge: patient is progressing back to baseline Mental Status: mental status grossly normal Speech and Movement: speech and movement normal and restless Mood: congruent mood Affect: normal affect Quality:SDOH Health Related Social Needs: No Data to Display Exam Psych Mental Status: mental status grossly normal Speech and Movement: speech and movement normal and restless Mood: congruent mood Affect: normal affect DS: Data Vitals/I&O Vitals and I&O: Vital Signs Temperature 36.6 C 10/24/23 08:00 Temperature Source Temporal Artery Scan 10/24/23 08:00 Pulse 67 10/24/23 08:00 Pulse 76 10/23/23 14:30 Respiratory Rate 18 10/24/23 08:00 Respiratory Effort Normal, Non-Labored 10/22/23 02:54 Respiratory Depth Shallow 10/22/23 02:54 Respiratory Pattern Normal 10/22/23 02:54 Blood Pressure 113/77 10/24/23 08:00 Blood Pressure Mean 69 10/23/23 12:02 Blood Pressure Position Sitting 10/22/23 02:54 Pulse Oximetry 99 10/24/23 08:00 Oxygen Delivery Method Room Air 10/24/23 08:00 Oxygen Flow Rate 0 10/24/23 08:00 Pain Level 0 10/23/23 16:24 Comment pt a & o x 4 10/23/23 16:24 Intake & Output 10/23/23 10/24/23 10/24/23 23:59 11:59 23:59 Intake Total 340 / 1130 611 / 611 Output Total 55 / 705 405 / 405 Balance 285 / 425 206 / 206 Intake: IV 100 / 650 150 / 150 Oral 240 / 480 461 / 461 Output: Drainage 55 / 105 30 / 30 Right Upper Anterior Abdomen 55 / 105 30 / 30 Urine 375 / 375 Other: Urine Color Light Kaykay Urine Appearance Clear Comment pt had reported x1 unknown void at toilet. Voiding Methods Urinal Data Completed and Pending Labs on day of discharge: Labs from last 24 hours 10/24/23 08:10 WBC 10.94 H RBC 3.70 L Hgb 11.0 L Hct 33.9 L MCV 92 MCH 29.7 MCHC 32.4 RDW 13.8 Plt Count 781 H* MPV 10.4 C-Reactive Protein 7.96 H Add-On Test Request DONE Preliminary micro results at discharge 10/20/23 17:42 Blood Culture - Preliminary Blood NO GROWTH 72 HOURS PFSH All Active Problems Former smoker (Acute) Postoperative hypoxia (Acute) Elevated bilirubin (Acute) Elevated transaminase level (Acute) Acute hyperglycemia (Acute) SCAR (acute kidney injury) (Acute) Acute cholecystitis (Acute) Leg edema (Acute) Type 2 diabetes mellitus (Acute) Vitamin D deficiency (Acute) Spinal stenosis (Acute) Sleep apnea (Acute) Peripheral neuropathy (Acute) Hyperlipidemia (Acute) Hearing loss (Acute) Current non-smoker but past smoking history unknown (Acute) Amputation of leg (Acute) L - 2005 Amputation of right foot (Acute) History of left below knee amputation (Acute) Diabetic polyneuropathy (Acute) Primary osteoarthritis of left shoulder (Chronic) Tinnitus, bilateral (Acute 05/16/17) Sensorineural hearing loss (SNHL) of both ears (Chronic 05/16/17) Medical History Infrarenal abdominal aortic aneurysm (AAA) without rupture Biceps tendon rupture Hx of fall Change in bowel function Leg weakness Lightheadedness Rotator cuff tear arthropathy of right shoulder Rotator cuff tear arthropathy of left shoulder Impacted cerumen, right ear Infected sebaceous cyst of skin Weight gain Sebaceous cyst (~08/19/19) referral states Right anterior chest Rupture of right distal biceps tendon (~09/2018) Osteomyelitis Foot drop, right Diabetic foot ulcer Ulcer of foot Shoulder pain, left Calf pain Bronchitis Physical deconditioning Insomnia Skin irritation Abdominal pain DNR (do not resuscitate) Myalgia Balance problem B12 deficiency Dysphagia Partial tear of left rotator cuff Most recent injection: 06/30/19 S/P RTC repair by Dr. Jarrett September 2017 MRI from 02/2018 showed full-thickness re-tear supraspinatus and infraspinatus Cellulitis of right toe right 4th toe Impingement syndrome of left shoulder SURGERY 10/09/17 Other synovitis and tenosynovitis, left shoulder SURGERY 10/09/17 Complete rotator cuff tear of left shoulder SURGERY 10/09/17 Discharge planning issues DVT prophylaxis Amputated toe of right foot Acute appendicitis with localized peritonitis Hernia of anterior abdominal wall Surgical History (Updated 10/24/23 @ 13:00 by Gauri Perkins DO) S/P cholecystectomy open History of transmetatarsal amputation of right foot History of colonoscopy H/O esophagogastroduodenoscopy (~06/09/18) History of spinal surgery Status post rotator cuff surgery Rotator Cuff Repair Repair of inguinal hernia Appendectomy (06/11/16) Amputation left below knee amputation Family History (Updated 10/21/23 @ 13:46 by Erich Marie) Mother CAD (coronary artery disease) Maternal Grandmother Diabetes Social History (Updated 10/21/23 @ 13:47 by Erich Marie) Smoking/Tobacco Use Status: Former Tobacco Use Quit Date: 02/18/17 Smoking risk assessment performed?: Yes Alcohol Intake: former Drug use: Never Substance use type: does not use Details: Pt states quit smoking 09/2017 Housing: house Current gender identity: male Do you feel safe at home: Yes Do you feel safe in your relationship?: Yes Additional Social history: Grew up outside of [place] in town in [place]. 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 Time Spent with Patient Time Spent with Patient: <45 minutes Time was spent: preparing to see the patient(eg.review tests), obtaining and/or reviewing separately otained hiistory, ordering medications,tests, procedures, referring, communicating with other health career development consultant, indepentently interpreting results, counseling the patient, care coordination and other
[2023-10-24] MEDS: Furosemide 20 MG/2 ML VIAL IVP (13:51)
--- NOTE | 2023-10-24 18:46 | PDOC.CMDIS ---
Date of service: 10/24/23 Time of Service: 18:46 LACE Index Scoring Tool Questions: Length of Stay (in days): 3 Was the patient admitted via the E.D.?: Yes Comorbidities: Diabetes w/o Complication E.D. Visits: 1 Answers: Total Score: 8 Risk of Readmission: Low Risk Care Management Discharge Plan Reason for Hospitalization: acute cholecystitis Discharge Plan: Eloy will be discharged home with no new services. He will follow up with his surgeon and plan of care and transport with family. Patient/Family Education Needs: review of discharge instructions, activity, follow up plan, limitations, discuss Ask Me Three SDNC Health Related Social Needs: No Data to Display
== END 2023-10-24 14:50 | disposition home or self-care (01) | DRG 415 ==
LOC: ER 20:26 → SUR 21:26 → ICU 10-21 00:41 → MS 10-23 14:41
PROVIDERS: Family Medicine; Surgery; Admitting Provider Surgery; Emergency Provider Physician Assistant; PCP Family Medicine; Visit Provider Surgery
PROC: 0FT44ZZ Resection of Gallbladder, Percutaneous Endoscopic Approach (ICD-10-PCS; CPT 47562; principal; 2023-10-20 20:25)
DX: K80.00 Calculus of gallbladder with acute cholecystitis without obstruction (principal); J95.89 Other postprocedural complications and disorders of respiratory system, not elsewhere classified; N17.9 Acute kidney failure, unspecified; J98.11 Atelectasis; K82.8 Other specified diseases of gallbladder; K82.A1 Gangrene of gallbladder in cholecystitis; R09.02 Hypoxemia; E11.42 Type 2 diabetes mellitus with diabetic polyneuropathy; Z79.4 Long term (current) use of insulin; G47.33 Obstructive sleep apnea (adult) (pediatric); I71.43 Infrarenal abdominal aortic aneurysm, without rupture; E78.5 Hyperlipidemia, unspecified; Z87.891 Personal history of nicotine dependence; R60.0 Localized edema; Z53.31 Laparoscopic surgical procedure converted to open procedure; R74.01 Elevation of levels of liver transaminase levels; E55.9 Vitamin D deficiency, unspecified; M19.012 Primary osteoarthritis, left shoulder; Z89.512 Acquired absence of left leg below knee; Z89.431 Acquired absence of right foot; Z66 Do not resuscitate; E11.22 Type 2 diabetes mellitus with diabetic chronic kidney disease; E11.65 Type 2 diabetes mellitus with hyperglycemia; M48.061 Spinal stenosis, lumbar region without neurogenic claudication; Z79.891 Long term (current) use of opiate analgesic; Z79.85 Long-term (current) use of injectable non-insulin antidiabetic drugs; Z79.84 Long term (current) use of oral hypoglycemic drugs; E80.6 Other disorders of bilirubin metabolism
CPT/HCPCS: 47600; 00123; 36410; 36415; 36416; 36592; 80048; 80053; 80076; 82962; 83690; 85027; 87040; 87637; 93306; 96361; 96365; 96367; 96375; 97116; 97162; 97530; 99223; 99291; J1650; 71045; 74177; 74181; 81003; 81015; 83036; 83605; 83735; 83880; 85025; 86140; 88304; 94760; 99222; 99233; C9290; G0378; J0131; J0696; J1170; J1815; J1836; J1941; J2001; J2270; J2371; J2405; J2470; J2704; J3490

== ENCOUNTER → 2023-11-05 10:53 | Outpatient (BNVA) | payer MEDICARE, SELFPAY | PROVIDERS: PCP Family Medicine; Referring Provider Family Medicine; Visit Provider Surgery | DX: Z48.815 Encounter for surgical aftercare following surgery on the digestive system (principal) ==

== ENCOUNTER → 2023-11-06 12:27 | Outpatient (BNVA) | payer MEDICARE, SELFPAY | PROVIDERS: PCP Family Medicine; Referring Provider Family Medicine; Visit Provider Physical Therapy Assistant | DX: Z48.02 Encounter for removal of sutures (principal) ==

== ENCOUNTER 2023-12-18 13:03 | Inpatient (IN) | payer MEDICARE, SELFPAY ==
[2023-12-18] VITALS (12 sets, daily range): BP systolic 113–150; BP diastolic 40–82; PULSE 55–70; RESP 12–23; TEMP 36.1–36.5; O2SAT 97–99
--- NOTE | 2023-12-18 13:15 | RT.EKG_ITS ---
APPROVED REPORT Exam: Resting ECG Reason for Exam: cva Patient Location: E HR:67 bpm ECG Measurements Heart Rate 67 AXIS AR 330 P 84 QRSd 94 QRS 5 QT 380 T 46 QTc 401 Conclusion Sinus rhythm...normal P axis, V-rate 60- 99 Prolonged AR interval...AR >220, V-rate 50- 90
--- NOTE | 2023-12-18 13:16 | DI.CT_ITS ---
Exam(s) CT BRAIN NECK CTA EXAM: CT BRAIN NECK CTA CLINICAL HISTORY: cva, left deficit. TECHNIQUE: Imaging Protocol: Axial CT angiography was performed with multi-slice acquisition and mu lti-planar and/or 3D reconstructions. CONTRAST MATERIAL: Intravenous: Omnipaque 350 Contrast volume:structured data in ml COMPARISON: No exams were available for comparison FINDINGS: CTA Neck W: Aortic arch anatomy: The aortic arch anatomy is conventional and there is no significant stenosis at the origin of the great vessels off of the aortic arch. No intimal flap evident. Anterior circulation: Both common carotid arteries ascend with normal luminal diameters. There is both calcified and noncalcified plaque at the carotid bifurcations and proximal internal car otid arteries bilaterally. The amount of stenosis is estimated at approximately 50 percent on the ri ght side in 40 percent on the left side. High slightly higher up in the left internal carotid artery approximately 1.5 cm above the bifurcation there is also some eccentric lateral wall plaque with wilian roximately 50 percent narrowing at this level. Above this level both internal carotid arteries are somewhat tortuous in the upper neck. There noted to be patent in the skull base-carotid canals. Posterior circulation: Both vertebral arteries originate off of the subclavian arteries with some calcified plaque at their origins. Both vertebral arteries ascend with normal and approximately equal luminal diameters in the foramen transversarium, both exhibiting luminal diameters of 3.5 mm no intraluminal thrombus nor dis section of the vertebral arteries evident. Both vertebral arteries contribute to the formation of th e basilar artery at the skull base. CTA Brain W: Anterior circulation: Both internal carotid arteries are patent in the skull base-carotid canals as well as within the cave rnous sinuses. The mcmahon of the intra cavernous internal carotid arteries are peripherally calcified but there does not appear to be a critical stenosis in these vessels and both ophthalmic arteries ar e opacified, coming off of the intra cavernous ICAs. The supraclinoid aspects of the ICAs are patent. Both A1 segments are patent as are the anterior cer ebral arteries and there is no evidence of aneurysm at the level of the anterior communicating artery . Both middle cerebral arteries are patent with no evidence of significant stenosis nor intraluminal th rombus. There also no aneurysms of these vessels. Posterior circulation: Basilar artery is formed by both vertebral arteries at the skull base and ascends with normal luminal diameter. Distally it gives off superior cerebellar arteries and above this level terminates as pat ent bilateral posterior cerebral arteries. Above this level the basilar artery terminates as patent bilateral posterior cerebral arteries. There is no evidence of aneurysm at the tip of the basilar artery nor elsewhere in the [id number] is. CT BRAIN: There is no evidence of intracranial hemorrhage, mass effect, or shift of midline structures. There are no extra-axial fluid collections. Ventricles are not enlarged or shifted. There are no ring enh ancing lesions in the brain and no abnormal meningeal enhancement. IMPRESSION: 1. There is significant calcified and noncalcified plaque at the level the carotid bifurcations and p roximal ICAs bilaterally. There is approximately 50 percent stenosis on the right side and 40 percen t stenosis on the left side at these levels. Recommend follow-up Doppler imaging to determine veloci ties. 2. Patent vertebral arteries. No significant atherosclerotic narrowing. No dissection evident. 3. Patent intracranial arteries. 4. No obvious acute intracranial findings. No ring enhancing lesions no abnormal meningeal enhanceme nt. If clinically indicated follow-up MRI can be performed Report called by myself to ER physician 12/18/2023 at 3:18 p.m. RADIATION DOSE DELIVERED: 2,181.74mGy.cm Total DLP DATA REPOSITORY: All CT scans at this facility are submitted to the National Radiology Data Registry (NRDR) Dose Index Registry (DIR) with the [employer] [place] (A[employer]). RADIATION OPTIMIZATION: All CT scans at this facility use at least one of these dose optimization te chniques: automated exposure control; mA and/or kV adjustment per patient size (includes targeted exa ms where dose is matched to clinical indication); or iterative reconstruction.
[2023-12-18 14:39] LABS: Abs Immature Grans 0.03 10^3/uL (0.0-0.06); Absolute Basophil Count 0.16 10^3/uL (0.0-0.2); Absolute Eosinophil Count 0.47 10^3/uL (0.0-0.7); Absolute Monocyte Count 0.62 10^3/uL (0.1-0.8); Absolute Neutrophil Count 6.32 10^3/uL (1.2-6.7); Basophils % 1.7 %; Eosinophils % 4.9 %; HCT 43.3 % (40.0-50.0); Immature Grans % 0.3 %; MCHC 32.3 % (32.0-36.0); MCV 90 fL (80-95); MPV 9.6 fL (8.0-11.0); Monocytes % 6.5 %; Neutrophils % 66.6 %; RBC 4.83 10^6/uL (4.36-5.78); RDW 13.3 % (11.8-14.1); RDW-SD 43.9 fL
[2023-12-18] MEDS: Omnipaque 350 MG/ML 100 ML BTL IJ (14:43)
[2023-12-18] MEDS: Normal Saline - Diluent 50 ML VIAL IJ (14:45)
[2023-12-18 15:01] LABS: ALT 29 U/L (16-63); AST 21 U/L (15-37); Albumin 3.6 g/dL (3.4-5.0); Alkaline Phosphatase 82 U/L (46-116); Anion Gap 6.2 mmol/L (3-11); BUN 16 mg/dL (7-18); Bilirubin, Total 0.36 mg/dL (0.2-1.0); CO2 29.8 mmol/L (21.0-32.0); CREATININE 1.1 mg/dL (0.70-1.30); Calcium 9.5 mg/dL (8.5-10.1); Chloride 108 mmol/L (98-107); Estimated GFR 70.88 (mL/min/1.73m2); Glucose 146 mg/dL (74-106); Potassium 4.9 mmol/L (3.5-5.1); Sodium 144 mmol/L (136-145); Total Protein 7.7 g/dL (6.4-8.2); Troponin I 6 ng/L (<or=76)
[2023-12-18 15:15] LABS: Diff Comment PLT Morph Reviewed; Platelet Count 934 10^3/uL (130-400); RBC Morphology Normal
--- NOTE | 2023-12-18 15:58 | ED.GENADUL_ITS ---
Discharge Plan Disposition Patient Disposition: Admit to [facility] Discharge Details Chief Complaint: Dizzy/Sync Clinical Impression: Acute cerebrovascular accident (CVA), Thrombocytosis Primary Care Provider: Lilli Packer V ED Provider: Nick Yo Home Meds and New Rx's Prescriptions: No Action lisinopril 2.5 mg tablet 2.5 mg PO DAILY gabapentin 300 mg capsule See Rx Instructions PO BID Rx Instructions: orally twice a day; PCP med list reports 900mg Qam and 1,500 Qpm diphenhydramine-acetaminophen [Tylenol PM Extra Strength] 25-500 mg tablet 2 - 3 tab PO QHS PRN ezetimibe [Zetia] 10 mg tablet 10 mg PO DAILY cholecalciferol (vitamin D3) 50 mcg (2,000 unit) capsule 50 mcg PO DAILY insulin aspart U-100 [Novolog PenFill U-100 Insulin] 100 unit/mL cartridge 1 sliding scale dose SC .before meals Rx Instructions: up to a total of 55units in a 24hr period. cyanocobalamin (vitamin B-12) 1,000 MCG/ML solution 1,000 mcg IJ .monthly melatonin 3 mg Tablet 10 mg PO HS PRN pantoprazole 40 mg tablet,delayed release (DR/EC) 40 mg PO DAILY Patient Comments: TAKE 1 TABLET BY MOUTH ONCE DAILY docusate sodium [Colace] 100 MG capsule 100 mg PO DAILY PRN metformin 850 mg tablet 850 mg PO .nightly Patient Comments: TAKE 1 TABLET BY MOUTH ONCE DAILY IN THE EVENING insulin degludec [Tresiba FlexTouch U-200] 200 unit/mL (3 mL) insulin pen 60 unit SUBCUT .nightly Patient Comments: med list noted 80 units, patient stated taking 60 units Trulicity 3 mg/0.5 mL pen injector 3 mg SUBCUT .WEEKLY Patient Comments: INJECT CONTENTS OF ONE PEN INJECTOR SUBCUTANEOUSLY ONCE WEEKLY FOR DIABETES oxycodone 15 mg tablet 15 mg PO Q6H PRNQty: 14 0RF aspirin [Aspirin Low-Strength] 81 MG tablet,chewable 81 mg PO DAILY oxycodone 15 MG tablet 15 mg PO Q6H PRN (Reason: pain) HPI General Mode of arrival: ambulatory . Date/Time Provider Initiated Documentation: 12/18/23 13:16 . Limitations to Documentation: no limitations . Information obtained by: patient and family . HPI Narrative: 73-year-old male with multiple medical problems including history of diabetes, here with acute onset difficulty ambulating, left arm weakness, speech disturbance. Symptoms noticed this morning upon waking around 9 AM. Last known normal last night at 9 PM. Symptoms have persisted unchanged since onset. No associated headache. No visual changes. Related Data Home Medications ?Medication ?Instructions ?Recorded ?Confirmed aspirin 81 mg chewable tablet 81 mg PO DAILY 12/25/16 12/18/23 (Aspirin Low-Strength) oxycodone 15 mg tablet 15 mg PO Q6H PRN pain 03/29/17 12/18/23 cyanocobalamin (vitamin B-12) 1,000 mcg IJ .monthly 10/03/17 12/18/23 1,000 mcg/mL injection solution melatonin 3 mg tablet 10 mg PO HS PRN 11/10/17 12/18/23 lisinopril 2.5 mg tablet 2.5 mg PO DAILY 05/23/18 12/18/23 diphenhydramine 25 2 - 3 tab PO QHS PRN 08/20/19 12/18/23 mg-acetaminophen 500 mg tablet (Tylenol PM Extra Strength) pantoprazole 40 mg tablet,delayed 40 mg PO DAILY 01/06/20 12/18/23 release cholecalciferol (vitamin D3) 50 50 mcg PO DAILY 09/05/22 12/18/23 mcg (2,000 unit) capsule ezetimibe 10 mg tablet (Zetia) 10 mg PO DAILY 09/05/22 12/18/23 gabapentin 300 mg capsule See Rx Instructions PO BID 09/14/22 12/18/23 insulin aspart U-100 100 unit/mL 1 sliding scale dose subcut 09/14/22 12/18/23 subcutaneous cartridge (Novolog .before meals PenFill U-100 Insulin aspart) docusate sodium 100 mg capsule 100 mg PO DAILY PRN 02/04/23 12/18/23 (Colace) insulin degludec 200 unit/mL (3 60 unit subcut .nightly 10/22/23 12/18/23 mL) subcutaneous pen (Tresiba FlexTouch U-200 insulin) metformin 850 mg tablet 850 mg PO .nightly 10/22/23 12/18/23 dulaglutide 3 mg/0.5 mL 3 mg subcut .WEEKLY 10/23/23 12/18/23 subcutaneous pen injector (Trulicity) oxycodone 15 mg tablet 15 mg PO Q6H PRN #14 tabs 10/24/23 12/18/23 Previous Rx's ?Medication ?Instructions ?Recorded oxycodone 15 mg tablet 15 mg PO Q6H PRN #14 tabs 10/24/23 Allergies Allergy/AdvReac Type Severity Reaction Status Date / Time levofloxacin Allergy Severe critical Verified 12/18/23 13:11 onion Allergy Severe raw onion Verified 12/18/23 13:11 Penicillins Allergy Severe Anaphylaxsi Verified 12/18/23 13:11 s Sulfa (Sulfonamide Allergy Severe Hives Verified 12/18/23 13:11 Antibiotics) sulfamethoxazole (From Allergy Severe Hives Verified 12/18/23 13:11 Bactrim) trimethoprim (From Bactrim) Allergy Severe Hives Verified 12/18/23 13:11 simvastatin AdvReac Severe faints Verified 12/18/23 13:11 General Stated Complaint: Dizzy/Sync VIKRAM: 3 Review of Systems All systems reviewed & are unremarkable except as noted in HPI and below Constitutional Constitutional: Denies fever(s) Neurologic Neurologic: Reports as per HPI Exam Const General: cooperative and no acute distress [facility] Head: normocephalic and atraumatic Mouth: moist mucous membranes Eyes Sclera: normal sclerae EOM: EOM intact bilaterally Resp Auscultation: clear to auscultation bilaterally, no rales, no rhonchi and no wheezes Cardio Rate: regular rate and not tachycardic Rhythm: regular rhythm GI Palpation: soft, not firm, no guarding, no masses, not rigid and nontender Skin General skin exam: no rashes or lesions noted Neuro General: patient alert, patient awake, patient oriented x3 and tone normal Cognition: normal cognition Speech: abnormal speech slurred Motor: strength abnormal (4/5 LUE, rt facial weakness) Sensory Exam: upper extremity (deiminished sensation to light touch LUE) Extrem General: no edema Psych Appearance: grossly normal Mental Status: mental status grossly normal Course Vital Signs Vital signs: Vital Signs Temperature 36.4 C L 12/18/23 13:05 Pulse 70 12/18/23 13:05 Respiratory Rate 20 12/18/23 13:05 Blood Pressure 133/71 12/18/23 13:05 Pulse Oximetry 98 12/18/23 13:05 Temperature 36.4 C L 12/18/23 13:05 Pulse 70 12/18/23 13:05 Respiratory Rate 20 12/18/23 13:05 Respiratory Effort Normal 12/18/23 13:10 Blood Pressure 133/71 12/18/23 13:05 Blood Pressure Position Sitting 12/18/23 13:05 Pulse Oximetry 98 12/18/23 13:05 Oxygen Delivery Method Room Air 12/18/23 13:05 Oxygen Flow Rate 0 12/18/23 13:05 Lab/Test Results Lab/Test Results: Laboratory Tests Range/Units 12/18/23 14:30 WBC (4.4-10.8) 10^3/uL 9.50 RBC (4.36-5.78) 10^6/uL 4.83 Hgb (13.5-17.5) g/dL 14.0 Hct (40.0-50.0) % 43.3 MCV (80-95) fL 90 MCH (27.0-33.0) pg 29.0 MCHC (32.0-36.0) % 32.3 RDW (11.8-14.1) % 13.3 Plt Count (130-400) 10^3/uL 934 H* MPV (8.0-11.0) fL 9.6 Immature Gran % % 0.3 Neutrophils % % 66.6 Lymphocytes % % 20.0 Monocytes % % 6.5 Eosinophils % % 4.9 Basophils % % 1.7 Nucleated RBC % (0.0-0.3) % 0.0 Absolute Neutrophils (1.2-6.7) 10^3/uL 6.32 Absolute Lymphocytes (1.2-3.4) 10^3/uL 1.90 Absolute Monocytes (0.1-0.8) 10^3/uL 0.62 Absolute Eosinophils (0.0-0.7) 10^3/uL 0.47 Absolute Basophils (0.0-0.2) 10^3/uL 0.16 RBC Morphology Normal Sodium (136-145) mmol/L 144 Potassium (3.5-5.1) mmol/L 4.9 Chloride (98-107) mmol/L 108 H Carbon Dioxide (21.0-32.0) mmol/L 29.8 Anion Gap (3-11) mmol/L 6.2 BUN (7-18) mg/dL 16 Creatinine (0.70-1.30) mg/dL 1.1 Est GFR (CKD-EPI 2020) (mL/min/1.73m2) 70.88 Glucose (74-106) mg/dL 146 H Calcium (8.5-10.1) mg/dL 9.5 Magnesium (1.8-2.4) mg/dL 2.0 Total Bilirubin (0.2-1.0) mg/dL 0.36 AST (15-37) U/L 21 ALT (16-63) U/L 29 Alkaline Phosphatase (46-116) U/L 82 Troponin I (<or=76) ng/L 6 Total Protein (6.4-8.2) g/dL 7.7 Albumin (3.4-5.0) g/dL 3.6 Medical Decision Making 73-year-old male with multiple medical problems including infrarenal AAA, former smoker, diabetes, here with chief complaint of difficulty ambulating upon waking this morning around 9 AM as well as weakness of his left arm and speech disturbance. Patient last known normal yesterday evening around 9 PM prior to going to bed. High concern for acute CVA. CTA imaging of the brain and neck as well as CT head obtained and interpreted by radiology: 1. There is significant calcified and noncalcified plaque at the level the carotid bifurcations and proximal ICAs bilaterally. There is approximately 50 percent stenosis on the right side and 40 percent stenosis on the left side at these levels. Recommend follow-up Doppler imaging to determine velocities. 2. Patent vertebral arteries. No significant atherosclerotic narrowing. No dissection evident. 3. Patent intracranial arteries. 4. No obvious acute intracranial findings. No ring enhancing lesions no abnormal meningeal enhancement. If clinically indicated follow-up MRI can be performed Labs reviewed: Thrombocytosis noted with platelets 934. These have been elevated in the recent past on review of prior labs. Patient was evaluated by teleneurology who I spoke with after evaluation. 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 They recommend continue baby aspirin, start Plavix at initial dose 300 mg, hospitalization for further diagnostic workup and treatment. Patient agreeable to treatment plan. I spoke with the hospitalist on-call, Dr. Bowling, and hospitalist nurse practitioner Bernardo, discussed ED presentation course, she will admit the patient. Lab Data Lab results reviewed: Yes I reviewed the patient's lab results. Labs: Laboratory Tests Range/Units 12/18/23 14:30 WBC (4.4-10.8) 10^3/uL 9.50 RBC (4.36-5.78) 10^6/uL 4.83 Hgb (13.5-17.5) g/dL 14.0 Hct (40.0-50.0) % 43.3 MCV (80-95) fL 90 MCH (27.0-33.0) pg 29.0 MCHC (32.0-36.0) % 32.3 RDW (11.8-14.1) % 13.3 Plt Count (130-400) 10^3/uL 934 H* MPV (8.0-11.0) fL 9.6 Immature Gran % % 0.3 Neutrophils % % 66.6 Lymphocytes % % 20.0 Monocytes % % 6.5 Eosinophils % % 4.9 Basophils % % 1.7 Nucleated RBC % (0.0-0.3) % 0.0 Absolute Neutrophils (1.2-6.7) 10^3/uL 6.32 Absolute Lymphocytes (1.2-3.4) 10^3/uL 1.90 Absolute Monocytes (0.1-0.8) 10^3/uL 0.62 Absolute Eosinophils (0.0-0.7) 10^3/uL 0.47 Absolute Basophils (0.0-0.2) 10^3/uL 0.16 RBC Morphology Normal Sodium (136-145) mmol/L 144 Potassium (3.5-5.1) mmol/L 4.9 Chloride (98-107) mmol/L 108 H Carbon Dioxide (21.0-32.0) mmol/L 29.8 Anion Gap (3-11) mmol/L 6.2 BUN (7-18) mg/dL 16 Creatinine (0.70-1.30) mg/dL 1.1 Est GFR (CKD-EPI 2020) (mL/min/1.73m2) 70.88 Glucose (74-106) mg/dL 146 H Calcium (8.5-10.1) mg/dL 9.5 Magnesium (1.8-2.4) mg/dL 2.0 Total Bilirubin (0.2-1.0) mg/dL 0.36 AST (15-37) U/L 21 ALT (16-63) U/L 29 Alkaline Phosphatase (46-116) U/L 82 Troponin I (<or=76) ng/L 6 Total Protein (6.4-8.2) g/dL 7.7 Albumin (3.4-5.0) g/dL 3.6 Quality:SDOH Health Related Social Needs: No Data to Display PFSH All Active Problems (Updated 12/18/23 @ 16:20 by Nick Yo MD) Thrombocytosis (Acute) Acute cerebrovascular accident (CVA) (Acute) Removal of staple (Acute) Former smoker (Acute) Type 2 diabetes mellitus (Acute) Vitamin D deficiency (Acute) Spinal stenosis (Acute) Sleep apnea (Acute) Peripheral neuropathy (Acute) Hyperlipidemia (Acute) Hearing loss (Acute) Current non-smoker but past smoking history unknown (Acute) Amputation of leg (Acute) L - 2005 Amputation of right foot (Acute) History of left below knee amputation (Acute) Diabetic polyneuropathy (Acute) Primary osteoarthritis of left shoulder (Chronic) Tinnitus, bilateral (Acute 05/16/17) Sensorineural hearing loss (SNHL) of both ears (Chronic 05/16/17) Medical History Infrarenal abdominal aortic aneurysm (AAA) without rupture Biceps tendon rupture Hx of fall Change in bowel function Leg weakness Lightheadedness Rotator cuff tear arthropathy of right shoulder Rotator cuff tear arthropathy of left shoulder Impacted cerumen, right ear Infected sebaceous cyst of skin Weight gain Sebaceous cyst (~08/19/19) referral states Right anterior chest Rupture of right distal biceps tendon (~09/2018) Osteomyelitis Foot drop, right Diabetic foot ulcer Ulcer of foot Shoulder pain, left Calf pain Bronchitis Physical deconditioning Insomnia Skin irritation Abdominal pain DNR (do not resuscitate) Myalgia Balance problem B12 deficiency Dysphagia Partial tear of left rotator cuff Most recent injection: 06/30/19 S/P RTC repair by Dr. Jarrett September 2017 MRI from 02/2018 showed full-thickness re-tear supraspinatus and infraspinatus Cellulitis of right toe right 4th toe Impingement syndrome of left shoulder SURGERY 10/09/17 Other synovitis and tenosynovitis, left shoulder SURGERY 10/09/17 Complete rotator cuff tear of left shoulder SURGERY 10/09/17 Discharge planning issues DVT prophylaxis Amputated toe of right foot Acute appendicitis with localized peritonitis Hernia of anterior abdominal wall Surgical History S/P cholecystectomy open History of transmetatarsal amputation of right foot History of colonoscopy H/O esophagogastroduodenoscopy (~06/09/18) History of spinal surgery Status post rotator cuff surgery Rotator Cuff Repair Repair of inguinal hernia Appendectomy (06/11/16) Amputation left below knee amputation Family History Mother CAD (coronary artery disease) Maternal Grandmother Diabetes Social History Smoking/Tobacco Use Status: Former Tobacco Use Quit Date: 02/18/17 Smoking risk assessment performed?: Yes Alcohol Intake: former Drug use: Never Substance use type: does not use Details: Pt states quit smoking 09/2017 Housing: house Current gender identity: male Do you feel safe at home: Yes Do you feel safe in your relationship?: Yes Additional Social history: Grew up outside of [place] in town in [place]. 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
--- NOTE | 2023-12-18 16:12 | HPE_ITS ---
Date of service: 12/18/23 Time of Service: 16:12 Assessment and Plan Assessment and plan (1) Acute cerebrovascular accident (CVA): Status: Acute Assessment and plan: Head CT negative for acute injury CT shows 50% stenosis to right carotid and 40% to left carotid: US Doppler ordered to determine velocity line -Allergy to statins currently on Zetia Teleneurology consult: -Continue daily Plavix and ASA 81 mg -MRI in the morning -Echo with bubble -Telemetry -A1c, lipid panel, TSH Physical therapy consult Speech pathology therapy consult Occupational therapy consult Neurocheck every 4 hours (2) Thrombocytosis: Status: Acute Assessment and plan: On ASA and Plavix LFTs and peripheral blood smear Considering heme-onc consult (3) Type 2 diabetes mellitus: Status: Acute Assessment and plan: [place] before meals and at bedtime with SSI coverage Bolus dose of Lantus adjusted to home long-acting insulin dosing BMP in a.m. Hold metformin x 48 hours Qualifiers: Diabetes mellitus complication detail: with polyneuropathy Diabetes mellitus complication status: with neurologic complications Diabetes mellitus longterm insulin use: with longterm use Qualified Code(s): E11.42 - Type 2 diabetes mellitus with diabetic polyneuropathy; Z79.4 - rn long term care (current) use of insulin (4) Hyperlipidemia: Status: Acute Assessment and plan: On Zetia Lipid panel pending The patient would have benefited from statin therapy but has an allergy listed Discussed with Dr. Bowling History of Present Illness History of Present Illness Chief Complaint: Speech disturbance, ambulatory dysfunction Narrative: This 73-year-old male patient with a past medical history of traumatic leg amputation, diabetes, hypertension, presented today at [facility] via private vehicle with spouse for evaluation of difficulty ambulating and speech disturbance. Patient reporting last known well date 12/17/2023 at the time where he was going to bed at 2130, then waking up this morning at 9 AM with difficulty ambulating and later on with speech disturbances. Later today spouse decided to drive him down to the emergency room. On arrival, right face and left arm disturbances were noticed. The patient remained hemodynamically stable in the ED. Workup in the ED was significant for head/neck CTA with the following results: CT BRAIN: There is no evidence of intracranial hemorrhage, mass effect, or shift of midline structures. There are no extra-axial fluid collections. Ventricles are not enlarged or shifted. There are no ring enhancing lesions in the brain and no abnormal meningeal enhancement. IMPRESSION for neck CTA: 1. There is significant calcified and noncalcified plaque at the level the carotid bifurcations and proximal ICAs bilaterally. There is approximately 50 percent stenosis on the right side and 40 percent stenosis on the left side at these levels. Recommend follow-up Doppler imaging to determine velocities. 2. Patent vertebral arteries. No significant atherosclerotic narrowing. No dissection evident. 3. Patent intracranial arteries. 4. No obvious acute intracranial findings. No ring enhancing lesions no abnormal meningeal enhancement. MRI completion was recommended. Other significant lab work showed platelet level at 934 today from 781 on 10/21/2023. Chemistry was unremarkable except for glucose at 146 and chloride at 108. Consultation with [facility] teleneurology service resulted in the suspicion of posterior circulation stroke with recommendation to continue baby aspirin and start Plavix loading with hospitalization for further diagnostic workup and management. The patient as an allergy to statin and is currently on Zetia to manage his hyperlipidemia. The hospitalist service was consulted and the patient admitted to medical medical surgical floor with telemetry for evaluation and management of CVA, ambulatory dysfunction, disturbance in speech and thrombocytosis. When seen in the room, the patient reported feeling better but complaining of ongoing weakness to the left side upper and lower extremities. Patient reported initially feeling dizzy without headache without change in vision, felt weak unable to get out of bed felt uncoordinated. Patient denied headache, tingling, numbness chest pain, cough, fever, nausea, vomiting or diarrhea. Patient reported ongoing constipation. Patient was unable to verify allergy to simvastatin causing him to faint; pointing that it might of caused him to feel lightheaded but could not confirm. The patient mention having advanced directive stating that he is a DNR DNI. Patient also mentioned past episode of claustrophobia during MRI and agrees to have a trial of lorazepam on-call for MRI in the morning. Review of Systems All systems reviewed & are unremarkable except as noted in HPI and below PFSH All Active Problems Thrombocytosis (Acute) Acute cerebrovascular accident (CVA) (Acute) Removal of staple (Acute) Former smoker (Acute) Type 2 diabetes mellitus (Acute) Vitamin D deficiency (Acute) Spinal stenosis (Acute) Sleep apnea (Acute) Peripheral neuropathy (Acute) Hyperlipidemia (Acute) Hearing loss (Acute) Current non-smoker but past smoking history unknown (Acute) Amputation of leg (Acute) L - 2006 Amputation of right foot (Acute) History of left below knee amputation (Acute) Diabetic polyneuropathy (Acute) Primary osteoarthritis of left shoulder (Chronic) Tinnitus, bilateral (Acute 05/16/17) Sensorineural hearing loss (SNHL) of both ears (Chronic 05/16/17) Medical History Infrarenal abdominal aortic aneurysm (AAA) without rupture Biceps tendon rupture Hx of fall Change in bowel function Leg weakness Lightheadedness Rotator cuff tear arthropathy of right shoulder Rotator cuff tear arthropathy of left shoulder Impacted cerumen, right ear Infected sebaceous cyst of skin Weight gain Sebaceous cyst (~08/19/19) referral states Right anterior chest Rupture of right distal biceps tendon (~09/2018) Osteomyelitis Foot drop, right Diabetic foot ulcer Ulcer of foot Shoulder pain, left Calf pain Bronchitis Physical deconditioning Insomnia Skin irritation Abdominal pain DNR (do not resuscitate) Myalgia Balance problem B12 deficiency Dysphagia Partial tear of left rotator cuff Most recent injection: 06/30/19 S/P RTC repair by Dr. Jarrett September 2017 MRI from 02/2018 showed full-thickness re-tear supraspinatus and infraspinatus Cellulitis of right toe right 4th toe Impingement syndrome of left shoulder SURGERY 10/09/17 Other synovitis and tenosynovitis, left shoulder SURGERY 10/09/17 Complete rotator cuff tear of left shoulder SURGERY 10/09/17 Discharge planning issues DVT prophylaxis Amputated toe of right foot Acute appendicitis with localized peritonitis Hernia of anterior abdominal wall Surgical History S/P cholecystectomy open History of transmetatarsal amputation of right foot History of colonoscopy H/O esophagogastroduodenoscopy (~06/09/18) History of spinal surgery Status post rotator cuff surgery Rotator Cuff Repair Repair of inguinal hernia Appendectomy (06/11/16) Amputation left below knee amputation Family History Mother CAD (coronary artery disease) Maternal Grandmother Diabetes Social History Smoking/Tobacco Use Status: Former Tobacco Use Quit Date: 02/18/17 Smoking risk assessment performed?: Yes Alcohol Intake: former Drug use: Never Substance use type: does not use Details: Pt states quit smoking 09/2017 Housing: house Current gender identity: male Do you feel safe at home: Yes Do you feel safe in your relationship?: Yes Additional Social history: Grew up outside of [place] in town in [place]. 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 Meds Allergies and Home Medications Allergies Allergy/AdvReac Type Severity Reaction Status Date / Time levofloxacin Allergy Severe critical Verified 12/18/23 13:11 onion Allergy Severe raw onion Verified 12/18/23 13:11 Penicillins Allergy Severe Anaphylaxsi Verified 12/18/23 13:11 s Sulfa (Sulfonamide Allergy Severe Hives Verified 12/18/23 13:11 Antibiotics) sulfamethoxazole (From Allergy Severe Hives Verified 12/18/23 13:11 Bactrim) trimethoprim (From Bactrim) Allergy Severe Hives Verified 12/18/23 13:11 simvastatin AdvReac Severe faints Verified 12/18/23 13:11 Home Medications ?Medication ?Instructions ?Recorded ?Confirmed ?Type aspirin 81 mg chewable tablet 81 mg PO DAILY 12/25/16 12/18/23 History (Aspirin Low-Strength) oxycodone 15 mg tablet 15 mg PO Q6H PRN pain 03/29/17 12/18/23 History cyanocobalamin (vitamin B-12) 1,000 mcg IJ .monthly 10/03/17 12/18/23 History 1,000 mcg/mL injection solution melatonin 3 mg tablet 10 mg PO HS PRN 11/10/17 12/18/23 History lisinopril 2.5 mg tablet 2.5 mg PO DAILY 05/23/18 12/18/23 History diphenhydramine 25 2 - 3 tab PO QHS PRN 08/20/19 12/18/23 History mg-acetaminophen 500 mg tablet (Tylenol PM Extra Strength) pantoprazole 40 mg tablet,delayed 40 mg PO DAILY 01/06/20 12/18/23 History release cholecalciferol (vitamin D3) 50 50 mcg PO DAILY 09/05/22 12/18/23 History mcg (2,000 unit) capsule ezetimibe 10 mg tablet (Zetia) 10 mg PO DAILY 09/05/22 12/18/23 History gabapentin 300 mg capsule See Rx Instructions PO BID 09/14/22 12/18/23 History insulin aspart U-100 100 unit/mL 1 sliding scale dose subcut 09/14/22 12/18/23 History subcutaneous cartridge (Novolog .before meals PenFill U-100 Insulin aspart) docusate sodium 100 mg capsule 100 mg PO DAILY PRN 02/04/23 12/18/23 History (Colace) insulin degludec 200 unit/mL (3 60 unit subcut .nightly 10/22/23 12/18/23 History mL) subcutaneous pen (Tresiba FlexTouch U-200 insulin) metformin 850 mg tablet 850 mg PO .nightly 10/22/23 12/18/23 History dulaglutide 3 mg/0.5 mL 3 mg subcut .WEEKLY 10/23/23 12/18/23 History subcutaneous pen injector (Trulicity) oxycodone 15 mg tablet 15 mg PO Q6H PRN #14 tabs 10/24/23 12/18/23 Rx Exam Narrative Exam Narrative: Constitutional The patient is sitting in chair/ lying in bed comfortable and cooperative during the interview. The patient is well groomed without acute distress and has average body habitus/is obese/ is thin. HENMT: Head is atraumatic, normocephalic, no lymphadenopathy. Left facial droop with smile Eyes: Well aligned, intact ROM Neck: Normal ROM, no meningeal signs Neuro:alert and oriented to self, person, place time and situation. Left upper extremity marty weakness with ataxia, left lower extremity weakness, PERRLA Chest:Chest is symmetrical and normal appearance Resp: Normal respiratory pattern, speaks in full sentences, unlabored breathing, clear lung bilaterally Cardio: regular rhythm, S1, S2, no murmur, GI: Abdomen is not distended, soft and non tender, bowel sounds are present : Negative Costovertebral angle tenderness Extremities: Left BKA with prosthesis Psych: RASS 0, congruent mood and normal affect. Results Labs 12/18/23 14:30 12/18/23 14:30 Labs: Laboratory Results - last 24 hr 12/18/23 14:30 WBC 9.50 RBC 4.83 Hgb 14.0 Hct 43.3 MCV 90 MCH 29.0 MCHC 32.3 RDW 13.3 Plt Count 934 H* MPV 9.6 Immature Gran % 0.3 Neutrophils % 66.6 Lymphocytes % 20.0 Monocytes % 6.5 Eosinophils % 4.9 Basophils % 1.7 Nucleated RBC % 0.0 Absolute Neutrophils 6.32 Absolute Lymphocytes 1.90 Absolute Monocytes 0.62 Absolute Eosinophils 0.47 Absolute Basophils 0.16 RBC Morphology Normal Sodium 144 Potassium 4.9 Chloride 108 H Carbon Dioxide 29.8 Anion Gap 6.2 BUN 16 Creatinine 1.1 Est GFR (CKD-EPI 2020) 70.88 Glucose 146 H Calcium 9.5 Magnesium 2.0 Total Bilirubin 0.36 AST 21 ALT 29 Alkaline Phosphatase 82 Troponin I 6 Total Protein 7.7 Albumin 3.6 Last Vital Signs Temp 36.4 C L 12/18/23 13:05 Pulse 70 12/18/23 13:05 Resp 20 12/18/23 13:05 BP 133/71 12/18/23 13:05 Pulse Ox 98 12/18/23 13:05 Time Spent Time spent with Patient: >75 minutes Time was spent: preparing to see the patient(eg.review tests), obtaining and/or reviewing separately otained hiistory, ordering medications,tests, procedures, referring, communicating with other health direct care provider, indepentently interpreting results, counseling the patient and care coordination
[2023-12-18] MEDS: Clopidogrel 300 MG TAB PO (16:38)
--- NOTE | 2023-12-18 17:42 | W.PC.ACHO ---
Registration Status: Primary Language: Preferred Language: ED Information & Data Chief Complaint Dizzy/Sync 12/18/23 16:19 Triage Note Trouble getting out of bed, 12/18/23 13:05 reports loss of muscle tone/ coordination, difficulty balancing, light headedness. [place] completely normal yesterday. Medical / Surgical History (Last Reviewed 12/18/23 @ 16:18 by Nick Yo MD) Infrarenal abdominal aortic aneurysm (AAA) without rupture Biceps tendon rupture Hx of fall Change in bowel function Leg weakness Lightheadedness Rotator cuff tear arthropathy of right shoulder Rotator cuff tear arthropathy of left shoulder Impacted cerumen, right ear Infected sebaceous cyst of skin Weight gain Sebaceous cyst (~08/19/19) Rupture of right distal biceps tendon (~09/2018) Osteomyelitis Foot drop, right Diabetic foot ulcer Ulcer of foot Shoulder pain, left Calf pain Bronchitis Physical deconditioning Insomnia Skin irritation Abdominal pain DNR (do not resuscitate) Myalgia Balance problem B12 deficiency Dysphagia Partial tear of left rotator cuff Cellulitis of right toe Impingement syndrome of left shoulder Other synovitis and tenosynovitis, left shoulder Complete rotator cuff tear of left shoulder Discharge planning issues DVT prophylaxis Amputated toe of right foot Acute appendicitis with localized peritonitis Hernia of anterior abdominal wall (Last Reviewed 12/18/23 @ 16:18 by Nick Yo MD) S/P cholecystectomy History of transmetatarsal amputation of right foot History of colonoscopy H/O esophagogastroduodenoscopy (~06/09/18) History of spinal surgery Status post rotator cuff surgery Rotator Cuff Repair Repair of inguinal hernia Appendectomy (06/11/16) Amputation Most Recent Vital Signs Temperature 36.4 C L 12/18/23 13:05 Pulse 57 L 12/18/23 17:31 Pulse 57 L 12/18/23 17:31 Respiratory Rate 15 12/18/23 17:31 Respiratory Effort Normal 12/18/23 13:10 Blood Pressure 122/53 L 12/18/23 17:31 Blood Pressure Mean 77 12/18/23 17:31 Blood Pressure Position Sitting 12/18/23 13:05 Pulse Oximetry 98 12/18/23 13:05 Oxygen Delivery Method Room Air 12/18/23 13:05 Oxygen Flow Rate 0 12/18/23 13:05 Allergies levofloxacin Allergy (Severe, Verified 12/18/23 13:11) critical Levaquin: SWEATS, CHILLS, ARM PAIN onion Allergy (Severe, Verified 12/18/23 13:11) raw onion Penicillins Allergy (Severe, Verified 12/18/23 13:11) Anaphylaxsis pt. reports anaphylaxis Sulfa (Sulfonamide Antibiotics) Allergy (Severe, Verified 12/18/23 13:11) Hives sulfamethoxazole (From Bactrim) Allergy (Severe, Verified 12/18/23 13:11) Hives trimethoprim (From Bactrim) Allergy (Severe, Verified 12/18/23 13:11) Hives simvastatin Adverse Reaction (Severe, Verified 12/18/23 13:11) faints Active Medications Generic Name Dose Route Start Last Admin Trade Name Freq PRN Reason Stop Dose Admin Iohexol 100 ml 12/18/23 14:45 12/18/23 14:43 Omnipaque 350 Mg/Ml 100 Ml Btl IJ 01/17/24 23:59 70 ml DIRECTED HILLARY Administration Sodium Chloride 50 ml 12/18/23 14:45 12/18/23 14:45 Normal Saline - Diluent 50 Ml Vial IJ 50 ml .FOR DI USE HILLARY Administration IV IV Catheter Type [Right Saline Lock Antecubital] IV Catheter Gauge [Right 18 Antecubital] Diagnostics 12/18/23 12/18/23 Range/Units 16:51 14:30 WBC 9.50 (4.4-10.8) 10^3/uL RBC 4.83 (4.36-5.78) 10^6/uL Hgb 14.0 (13.5-17.5) g/dL Hct 43.3 (40.0-50.0) % MCV 90 (80-95) fL MCH 29.0 (27.0-33.0) pg MCHC 32.3 (32.0-36.0) % RDW 13.3 (11.8-14.1) % Plt Count 934 H* (130-400) 10^3/uL MPV 9.6 (8.0-11.0) fL Immature Gran % 0.3 % Neutrophils % 66.6 % Lymphocytes % 20.0 % Monocytes % 6.5 % Eosinophils % 4.9 % Basophils % 1.7 % Nucleated RBC % 0.0 (0.0-0.3) % Absolute Neutrophils 6.32 (1.2-6.7) 10^3/uL Absolute Lymphocytes 1.90 (1.2-3.4) 10^3/uL Absolute Monocytes 0.62 (0.1-0.8) 10^3/uL Absolute Eosinophils 0.47 (0.0-0.7) 10^3/uL Absolute Basophils 0.16 (0.0-0.2) 10^3/uL RBC Morphology Normal Sodium 144 (136-145) mmol/L Potassium 4.9 (3.5-5.1) mmol/L Chloride 108 H (98-107) mmol/L Carbon Dioxide 29.8 (21.0-32.0) mmol/L Anion Gap 6.2 (3-11) mmol/L BUN 16 (7-18) mg/dL Creatinine 1.1 (0.70-1.30) mg/dL Est GFR (CKD-EPI 2020) 70.88 (mL/min/1.73m2) Glucose 146 H (74-106) mg/dL Hemoglobin A1c Pending Calcium 9.5 (8.5-10.1) mg/dL Magnesium 2.0 (1.8-2.4) mg/dL Total Bilirubin 0.36 (0.2-1.0) mg/dL AST 21 (15-37) U/L ALT 29 (16-63) U/L Alkaline Phosphatase 82 (46-116) U/L Troponin I 6 (<or=76) ng/L Total Protein 7.7 (6.4-8.2) g/dL Albumin 3.6 (3.4-5.0) g/dL Triglycerides Pending Total Cholesterol Pending LDL Cholesterol, Calc Pending HDL Cholesterol Pending TSH Pending [id number] Documentation Fingerstick Glucose Start: 12/18/23 13:17 Freq: .Stat Status: Active Protocol: Activity Type Activity Date Activity User E-sign Co-sign Detail Recorded Client Recorded Date Recorded By Document 12/18/23 14:11 BKG DAEMON(3) [id number] 12/18/23 14:12 BKG DAEMON(4) Intake and Output - 24 Hour Total 12/18/23 13:03 thru 12/18/23 17:11 Intake Total 10 Balance 10 Weight 120.656 kg Intake: IV 10 Falls Risk Assessment History of Falls No History 12/18/23 13:10 Contributing Factors No Factors 12/18/23 13:10 Ambulatory Aids Independent 12/18/23 13:10 Tubes/Lines None 12/18/23 13:10 Gait Evaluation No gait disturbance 12/18/23 13:10 Cognition No cognitive impairment 12/18/23 13:10 Fall Total Score 0 12/18/23 13:10 Level of Risk Standard/Low Risk 12/18/23 13:10 Problems (Last Reviewed 12/18/23 @ 16:18 by Nick Yo MD) Thrombocytosis (Acute) Acute cerebrovascular accident (CVA) (Acute) Type 2 diabetes mellitus (Acute) Hyperlipidemia (Acute) v v v v v v v v v Sending and/or Receiving Nurses: Please use comment section below to note any information pertinent to the patient hand-off not included above. Information / Comments: Presents to ED w/ slurred speech, left arm weakness, and difficulty ambulating. Thrombocytosis, CVA, hx DM, sleep apnea. Report received from: [facility] ED Nurse
[2023-12-18 18:26] LABS: Calculated LDL 76 mg/dL (<100); Cholesterol 149 mg/dL (<200); HDL Cholesterol 44 mg/dL (40-60); Triglyceride 145 mg/dL (<150)
[2023-12-18 18:27] LABS: Hemoglobin A1C 6.2 % (<5.7)
[2023-12-18] MEDS: Normal Saline Flush 10 ML SYR IVP ×2 (20:31)
[2023-12-18] MEDS: Gabapentin 300 MG CAP 1500 MG PO (20:35)
[2023-12-18] MEDS: Docusate Sodium 100 MG CAP PO (23:43)
--- NOTE | 2023-12-19 | DI.CT_ITS ---
Exam(s) CT HEAD WO EXAM: CT HEAD WO CLINICAL HISTORY: worsening CVA symptoms. TECHNIQUE: Imaging Protocol: Axial computed tomography images with coronal and sagittal reformatted images were created and reviewed COMPARISON: CT CT BRAIN NECK CTA from 12/18/2023 MR MR BRAIN WO from 12/19/2023 FINDINGS: There are no skull fractures. There is no fluid in the visualized paranasal sinuses. There is no evidence of intracranial hemorrhage, mass effect, or shift of midline structures. There are no extra-axial fluid collections. The ventricles are not enlarged or shifted and there is no blo od within the ventricular system nor within the basal cisterns. IMPRESSION: No acute intracranial findings on this noninfused CT scan of the brain. However, please note that MRI scan performed today reveals significant restricted diffusion in the ri ght-side of the landon indicating an acute infarct at this level. There is no hemorrhage on CT scan at this level nor elsewhere in the brain. RADIATION DOSE DELIVERED: 919.5mGy.cm Total DLP DATA REPOSITORY: All CT scans at this facility are submitted to the National Radiology Data Registry (NRDR) Dose Index Registry (DIR) with the [employer] (ACR). RADIATION OPTIMIZATION: All CT scans at this facility use at least one of these dose optimization te chniques: automated exposure control; mA and/or kV adjustment per patient size (includes targeted exa ms where dose is matched to clinical indication); or iterative reconstruction.
[2023-12-19] MEDS: Acetaminophen 325 MG TAB 650 MG PO ×2 (01:05→23:24)
[2023-12-19] MEDS: Melatonin 3 MG TAB 9 MG PO (01:06)
[2023-12-19 03:00] VITALS: BP 122/61; PULSE 58; RESP 18; TEMP 36.1; O2SAT 98
[2023-12-19 07:11] LABS: Abs Immature Grans 0.04 10^3/uL (0.0-0.06); Absolute Basophil Count 0.18 10^3/uL (0.0-0.2); Absolute Eosinophil Count 0.53 10^3/uL (0.0-0.7); Absolute Lymphocyte Count 2.05 10^3/uL (1.2-3.4); Absolute Monocyte Count 0.72 10^3/uL (0.1-0.8); Absolute Neutrophil Count 6.38 10^3/uL (1.2-6.7); Basophils % 1.8 %; Eosinophils % 5.4 %; HCT 39.5 % (40.0-50.0); HGB 12.8 g/dL (13.5-17.5); Immature Grans % 0.4 %; Lymphocytes % 20.7 %; MCH 29.2 pg (27.0-33.0); MCHC 32.4 % (32.0-36.0); MCV 90 fL (80-95); MPV 9.7 fL (8.0-11.0); Monocytes % 7.3 %; Neutrophils % 64.4 %; RBC 4.38 10^6/uL (4.36-5.78); RDW 13.4 % (11.8-14.1); RDW-SD 44.7 fL
[2023-12-19 07:22] LABS: Anion Gap 8.6 mmol/L (3-11); BUN 14 mg/dL (7-18); CO2 28.4 mmol/L (21.0-32.0); Chloride 107 mmol/L (98-107); Estimated GFR 79.47 (mL/min/1.73m2); Glucose 123 mg/dL (74-106); Potassium 4.3 mmol/L (3.5-5.1); Sodium 144 mmol/L (136-145)
[2023-12-19 07:34] VITALS: BP 113/59; PULSE 60; RESP 16; TEMP 36.3; O2SAT 99
[2023-12-19 07:54] LABS: Diff Comment PLT Morph Reviewed; Platelet Count 818 10^3/uL (130-400)
[2023-12-19] MEDS: Ezetimibe 10 MG TAB PO (07:57)
[2023-12-19] MEDS: Cholecalciferol (Vitamin D3) 1,000 UNIT TAB 2000 UNITS PO (07:57)
[2023-12-19] MEDS: Gabapentin 300 MG CAP 900 MG PO (07:58)
[2023-12-19] MEDS: Clopidogrel 75 MG TAB PO (07:59)
[2023-12-19] MEDS: Docusate Sodium 100 MG CAP PO ×2 (08:00→21:16)
[2023-12-19] MEDS: Aspirin 81 MG CHEW PO (08:01)
[2023-12-19] MEDS: Pantoprazole 40 MG TABCR PO (08:03)
[2023-12-19] MEDS: Normal Saline Flush 10 ML SYR IVP ×3 (08:05→21:16)
[2023-12-19] MEDS: Enoxaparin 40 MG/0.4 ML SYR SC (08:06)
--- NOTE | 2023-12-19 09:00 | DI.US_ITS ---
Exam(s) US CAROTID EXAM: US CAROTID CLINICAL HISTORY: 50% R/ 40% L stenosis:velocities?. TECHNIQUE: Ultrasound carotids performed using grayscale, color-flow, and spectral Doppler imaging. COMPARISON: CT CT BRAIN NECK CTA from 12/18/2023 FINDINGS: RIGHT CAROTID ARTERY: Plaque: Mixed calcific and noncalcific plaque at the common carotid bulb and proximal internal caroti d artery. Velocity elevation: Mildly elevated systolic velocity, less than 50 percent stenosis. LEFT CAROTID ARTERY: Plaque: None moderate calcified and noncalcified plaque at the common carotid bulb and proximal to mi d internal carotid artery. Velocity elevation: Velocity elevations in the proximal and mid common carotid artery consistent with 50-69 percent stenosis. VERTEBRAL ARTERIES: Antegrade flow. Measurements: R Bulb: 82.3cm/s PS / 15.6cm/s ED R CCA: 85.4cm/s PS / 15.4cm/s ED R ECA: 167.2cm/s PS / 12.6cm/s ED R ICA Prox: 129.9cm/s PS / 31.9cm/s ED R ICA Mid: 101.2cm/s PS / 22.8cm/s ED R ICA Distal: 61.3cm/s PS /17.7cm/s ED R Vert: 58.8cm/s PS / 14.6cm/s ED R SVR: 1.5 R DVR: 2.1 L Bulb: 89.3cm/s PS / 29.3cm/s ED L CCA: 80.2cm/s PS / 11.5cm/s ED L ECA: 107.4cm/s PS / 8.7cm/s ED L ICA Prox: 263.6cm/s PS / 75.5cm/s ED L ICA Mid: 172.4cm/s PS / 23cm/s ED L ICA Distal: 85cm/s PS / 23.4cm/s ED L Vert: 71.9cm/s PS / 16.6cm/s ED L SVR: 3.3 L DVR: 6.5 IMPRESSION: Multiple focal mixed plaque in both common carotid bulbs and proximal to mid internal carotid arterie s. Velocity elevations on the right consistent with less than 50 percent stenosis. Velocity elevations on the left consistent with 50-69 percent stenosis proximal left internal carotid artery. Criteria for Carotid Stenosis: Normal: ICA PSV <125 cm/s no plaque or intimal thickening is visible. <50% stenosis: ICA PSV <125 cm/s and plaque or intimal thickening is visible. 50-69% stenosis: ICA PSV is 125-250 cm/s and plaque is visible. >70% stenosis to near occlusion: ICA PSV >250 cm/s with visible plaque and luminal narrowing. DATA REPOSITORY:
--- NOTE | 2023-12-19 09:15 | PT.INIE ---
PT Notes Visit Reasons: CVA,thrombocytosis,ambulatory dysf,speech disturba Physical Therapy Inpatient Initial Evaluation Date: 12/19/2023 Referring Doctor: Shoshana Chang NP PT Orders: PT CONSULT: Eval for Assiative Device Precautions: Fall. Standard. Activity as tolerated. L tramstibial prosthesis and R spiral AFO in place when OOB. 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 Patient is admitted for management of acute cerebrovascular accident, thrombocytosis, type 2 diabetes mellitus, and hyperlipidemia. PMHX: All Active Problems Thrombocytosis (Acute) Acute cerebrovascular accident (CVA) (Acute) Removal of staple (Acute) Former smoker (Acute) Type 2 diabetes mellitus (Acute) Vitamin D deficiency (Acute) Spinal stenosis (Acute) Sleep apnea (Acute) Peripheral neuropathy (Acute) Hyperlipidemia (Acute) Hearing loss (Acute) Current non-smoker but past smoking history unknown (Acute) Amputation of leg (Acute) L - 2005 Amputation of right foot (Acute) History of left below knee amputation (Acute) Diabetic polyneuropathy (Acute) Primary osteoarthritis of left shoulder (Chronic) Tinnitus, bilateral (Acute 05/16/17) Sensorineural hearing loss (SNHL) of both ears (Chronic 05/16/17) Medical History Infrarenal abdominal aortic aneurysm (AAA) without rupture Biceps tendon rupture Hx of fall Change in bowel function Leg weakness Lightheadedness Rotator cuff tear arthropathy of right shoulder Rotator cuff tear arthropathy of left shoulder Impacted cerumen, right ear Infected sebaceous cyst of skin Weight gain Sebaceous cyst (~08/19/19) referral states Right anterior chest Rupture of right distal biceps tendon (~09/2018) Osteomyelitis Foot drop, right Diabetic foot ulcer Ulcer of foot Shoulder pain, left Calf pain Bronchitis Physical deconditioning Insomnia Skin irritation Abdominal pain DNR (do not resuscitate) Myalgia Balance problem B12 deficiency Dysphagia Partial tear of left rotator cuff Most recent injection: 06/30/19 S/P RTC repair by Dr. Jarrett September 2017 MRI from 02/2018 showed full-thickness re-tear supraspinatus and infraspinatus Cellulitis of right toe right 4th toe Impingement syndrome of left shoulder SURGERY 10/09/17 Other synovitis and tenosynovitis, left shoulder SURGERY 10/09/17Complete rotator cuff tear of left shoulder SURGERY 10/09/17 Discharge planning issues DVT prophylaxis Amputated toe of right foot Acute appendicitis with localized peritonitis Hernia of anterior abdominal wall Surgical History S/P cholecystectomy open History of transmetatarsal amputation of right foot History of colonoscopy H/O esophagogastroduodenoscopy (~06/09/18) History of spinal surgery Status post rotator cuff surgery Rotator Cuff Repair Repair of inguinal hernia Appendectomy (06/11/16) 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 He has a flight of steps to the bedroom of the house. Equipment Owned/DME: [facility] Subjective: Patient reported new onset weakness in her L arm and leg. Added that his speech is altered feeling more slurred unlike before. Denied headache, chest pain, and lightheadedness throughout session. Agreeable to going to an acute stroke facility if placement and transportation can be arranged. Adds that 's plate is full at this time as she is taking care of his [id number] who is on hospice. Verbalized more than 5 falls in the past year but with no fractures. Objective: General Observation: Patient was toileting when patient came in. Nurse Hussein assisting patient. Patient's trunk bent whie walking. L TT prosthesis in place. R spiral AFO in place. Mental Status: Alert and oriented as to person, place, time, and purpose. Able to pay attention, focus, and respond appropriately. Pain: None reported Vital Signs: Closely monitored by nursing staff ROM: Right Upper Extremity: Shoulder Flexion WFL. Shoulder abduction WFL. Elbow flexion WFL. Wrist flexion WFL. Functional opening and closing of hand WFL. Left Upper Extremity: Shoulder Flexion allows up to about 60 degrees only. Shoulder abduction allows up to about 40 degrees only. Elbow flexion 45 degrees. Wrist flexion WFL. Functional opening and closing of hand impaired. Right Lower Extremity: Hip flexion WFL. Hip abduction WFL. Knee flexion 10 degrees to 110 degrees. Knee extension -10 degrees ankle dorsiflexion ) degrees, patient with R foot drop. Ankle plantarflexion WFL. Left Lower Extremity: Hip flexion lacks the last 25% of AROM. Hip abduction lacks the last 25% of AROM. Knee flexion 30 degrees to 90 degrees. Ankle dorsiflexion not applicable, patient with L TT prosthesis. Ankle plantarflexion not applicable, patient with L TT prosthesis Strength: Right Upper Extremity: Shoulder flexors 4/5. Shoulder abductors 4/5. Elbow flexors 5/5. Elbow extensors 5/5. 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 Left Upper Extremity: Shoulder flexors 2-/5. Shoulder abductors 2-/5. Elbow flexors 3--/5. Elbow extensors 4-/5. Industrial Gas Production Operator weak and non-functional. Right Lower Extremity: Hip flexors 4/5. Hip abductors 4/5. Knee flexors 3-/5. Knee extensors 3-/5. Ankle dorsiflexors 0/5. Ankle plantarflexors 3/5. Left Lower Extremity: Hip flexors 2-/5. Hip abductors 2-/5. Knee flexors 3-/5. Knee extensors 3-/5. Ankle dorsiflexors 0/5. Ankle plantarflexors 0/5. Bed Mobility/Transfers: Minimal cueing provided for use of B hands as needed for support, movement sequence, AD management, and posture to reduce fall risk and minimize pain report Sit to stand minimal assist using both hands for support Stand to sit contact guard assist nto high chair using B hands to control descent Bed to toilet seat minimal assist using FWW Toilet seat to chair minimal assist using FWW Gait: Facilitate safe and correct performance of short tandem ambulation of about 20 feet using front wheeled walker with minimal assist of PT and standby assist of nurse Hussein requiring minimal verbal cueing for AD management, directional changes, posture, and overall safety. Trunk forward flexed as position of comfort due to previous back surgery, steps asymmetric, Spiral AFO on the R for pre-existing drop foot, decreased hip/knee flexion on the L. Balance: Static Sitting: Normal Dynamic Sitting: Normal Static Standing: Fair Dynamic Standing: Fair Special Tests: Mobility Limitations Standardized Measure [facility] AM-PAC 6 clicks Basic Mobility Inpatient Short Form: Raw Score: 18 CMS Score: 47% deficit% 4-Stage Balance test: Deferred due to safety reasons Pronator drift: Positive on L Tongue Deviation: Deviated to R Rhomberg test: Deferred due to safety reasons Informed Consent/Education: Patient was instructed in purpose of PT consult and plan of care. Agreeable to proceed with established PT POC to achieve personal goals. ASSESSMENT: Suhail presents with functional mobility decline resulting from acute functional impairments listed below. Co-morbidities include high BMI, pre-existing balance impairment, diabetes, and repeated falls. Patient requires acute stoke rehab facility placement in order to optimize motor and neurologic recovery while increasing ability to return home safely. Patient presents with clinical signs and symptoms consistent with current/admitting diagnoses that have resulted to mobility limitations, gait instability, generalized weakness, and overall ADL decline as demonstrated by the following impairment level findings: 1. Decreased strength to L UE/LE major muscle groups 2. Impaired sitting/standing balance and tolerance 3. Impaired activity tolerance 4. Limitation of joint range of motion in L UE/LE joints 5. Shortness of breath 6. High BMI 7. Foot drop on R ankle 8. Transtibial amputation on L 9. Facial asymmetry with L facial droop noted 10. 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 Decline in bed mobility skills 2. Decline in transfer skills 3. Difficulty with ambulation without assistive device and physical assistance 4. Increased completion time for mobility ADL performance 5. Increased risk for falls 6. Difficulty with managing steps alone safely Patient is assessed as a 15595 moderate complexity based on the following: History: [id number] with past medical history as indicated above Examination: Demonstrable impairment in strength, balance, and mobility level with underlying impairments and functional limitations as exhibited above as well as deficit score of 47% utilizing the [facility] Mobility Inpatient Short Form Presentation: Evolving Decision Makin moderate complexity Goals: Goals X1 week 1. Supine-Sit independent 2. Sit-Supine independent 3. Sit-Stand independent 4. Stand-Sit independent with FWW 5. Bed-Chair independent with FWW 6. Chair-Bed independent with FWW 7. Independent gait on level surface with use of FWW for at least 150 feet without report of pain nor dyspnea 8. Independent stair negotiation while holding onto 1 rails for at least 12 steps without report of pain nor dyspnea 9. Independent with home exercise program 10. Good static and dynamic standing balance/tolerance Plan of Care/Treatment Plan: Patient will highly benefit from skilled physical therapy services including functional mobility training, bed mobility/transfer training, gait and balance training, therapeutic exercises, therapeutic activity, caregiver/staff/family education and training 1x/day, 7 days/week x 1 week. Initiate Physical Therapy intervention for strengthening, bed mobility, transfers, gait, stairs, balance training, use of assistive device. DISCHARGE RECOMMENDATIONS: [] Home with no services [] [] Home with services [specify] [] Home with outpatient PT [] [] SNF for continued rehabilitation [] [] Alf Care [] [] SNF versus LTC based on ability to participate and progress [] [X] Acute stroke rehabilitation facility to optimize neurologic recovery and facilitate motor return TREATMENT CODE/TIME: 56816 x 20 minutes for 1 unit, 71442 x 15 minutes for 1 unit (9:15-9:55). Thank you for the opportunity to participate in the care of this patient. Arely Velazco PT, DPT, CLT [facility] [place], [place]
--- NOTE | 2023-12-19 09:49 | W.PM.PROGNOT ---
Date of Service Date of service: 12/19/23 Time of Service: 09:49 Assessment and Plan Assessment and plan (1) Acute cerebrovascular accident (CVA): Status: Acute Assessment and plan: Head CT negative for acute injury CT shows 50% stenosis to right carotid and 40% to left carotid - US Doppler ordered to determine velocity completed: Left stenosis still less than 50/right stenosis between 50 and 69% -Allergy listed as fainting on simvastatin , currently on Zetia-lipid panel improved from last labs?agrees to try Zocor-statins to reduce inflammation and lipids and best practice in strokes Teleneurology consult: -Continue daily Plavix and ASA 81 mg -MRI completed: Confirms right cerebellar infarct/ Abnormal area of restricted diffusion on the right side of landon consistent with acute to subacute infarct. -Echo with bubble completed: Study was unable to assess for PFO. Might need repeating status post discussion with neuro -Telemetry: Ongoing sinus all rhythm/Mobitz type blocks,/no A-fib -A1c 6.2 lipid panel improving, TSH 0.9 Physical therapy consult: Recommendation for acute rehab Speech pathology therapy consult: MBSS in the morning due to difficulty swallowing Occupational therapy consult: Ongoing Will continue neurocheck every [address] without contrast repeated due to worsening left sided stroke symptoms. National [place] of health stroke scale around 10 now -Might be due to inflammatory changes status post infarct versus expansion versus neurologic changes. Teleneurology consult placed today on 12/19/2023: Pending (2) Thrombocytosis: Status: Acute Assessment and plan: On ASA and Plavix LFTs and peripheral blood smear Considering heme-onc consult (3) Type 2 diabetes mellitus: Status: Acute Assessment and plan: Hadley before meals and at bedtime with SSI coverage Bolus dose of Lantus adjusted to home long-acting insulin dosing BMP in a.m. 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 Bowling Subjective Subjective Patient reports: tolerating liquids well, tolerating a regular diet and voiding w/o difficulty; denies feels better, no bowel movement, diarrhea, nausea, vomiting or fever Exam Narrative Exam Narrative: Constitutional The patient is sitting in chair/ lying in bed comfortable and cooperative during the interview. The patient is well groomed without acute distress and has average body habitus/is obese/ is thin. HENMT: Head is atraumatic, normocephalic, no lymphadenopathy. Left facial droop with smile increased Eyes: Well aligned, intact ROM Neuro:alert and oriented to self, person, place time and situation. Left upper extremity increased weakness worsened- hemeplegia now, left lower extremity increased weakness, PERRLA, speech in mumbled Resp: Normal respiratory pattern, speaks in full sentences, unlabored breathing, clear lung bilaterally Cardio:Tele- showing transient second degree type I bolck / SR- regular rhythm, S1, S2, no murmur, GI: Abdomen is not distended, soft and non tender, bowel sounds are present : Negative Costovertebral angle tenderness Extremities: Left BKA with prosthesis Psych: RASS 0, labile /irritated mood and normal affect. Objective Last Vital Signs Temp 36.3 C L 12/19/23 07:34 Pulse 60 12/19/23 07:34 Resp 16 12/19/23 07:34 BP 113/59 L 12/19/23 07:34 Pulse Ox 99 12/19/23 07:34 Laboratory Results - last 24 hr 12/18/23 12/19/23 14:30 06:55 WBC 9.50 9.90 RBC 4.83 4.38 Hgb 14.0 12.8 L Hct 43.3 39.5 L MCV 90 90 MCH 29.0 29.2 MCHC 32.3 32.4 RDW 13.3 13.4 Plt Count 934 H* 818 H* MPV 9.6 9.7 Immature Gran % 0.3 0.4 Neutrophils % 66.6 64.4 Lymphocytes % 20.0 20.7 Monocytes % 6.5 7.3 Eosinophils % 4.9 5.4 Basophils % 1.7 1.8 Nucleated RBC % 0.0 0.0 Absolute Neutrophils 6.32 6.38 Absolute Lymphocytes 1.90 2.05 Absolute Monocytes 0.62 0.72 Absolute Eosinophils 0.47 0.53 Absolute Basophils 0.16 0.18 RBC Morphology Normal Sodium 144 144 Potassium 4.9 4.3 Chloride 108 H 107 Carbon Dioxide 29.8 28.4 Anion Gap 6.2 8.6 BUN 16 14 Creatinine 1.1 1.0 Est GFR (CKD-EPI 2020) 70.88 79.47 Glucose 146 H 123 H Hemoglobin A1c 6.2 H Calcium 9.5 9.0 Magnesium 2.0 Total Bilirubin 0.36 AST 21 ALT 29 Alkaline Phosphatase 82 Troponin I 6 Total Protein 7.7 Albumin 3.6 Triglycerides 145 Total Cholesterol 149 LDL Cholesterol, Calc 76 HDL Cholesterol 44 TSH 0.90 Time Spent with Patient Time Spent with Patient: >50 minutes Time was spent: preparing to see the patient(eg.review tests), obtaining and/or reviewing separately otained hiistory, ordering medications,tests, procedures, referring, communicating with other health intensive care medicine specialist, indepentently interpreting results, counseling the patient and care coordination
[2023-12-19] MEDS: LORazepam 2 MG/ML VIAL 1 MG IVP (10:29)
[2023-12-19] MEDS: Insulin Glargine 300 UNITS/3 ML PEN 48 UNITS SC (10:30)
[2023-12-19 13:15] VITALS: BP 109/59; PULSE 69; RESP 13; O2SAT 97
--- NOTE | 2023-12-19 13:26 | INITIAL_ITS ---
Date of service: 12/19/23 Time of Service: 13:27 Care Management Initial Assmt Initial Assessment Reason for Hospitalization: CVA, thrombocystosis, amb dysfunction, speech disturbance Functional Status/Living Situation Patient Presentation: Suhail was reclining in his chair when CM met with him. His , Jyoti was in the room visiting. He stated that he worked with PT today; PT is recommending acute rehab post stroke, and he is agreeable to this plan, although he has some concerns. He stated that he is concerned about the financial implications of going to rehab, as well as transportation. CM discussed the process of him going to rehab, including CM sending referrals, being accepted and the facility obtaining a PA, if needed. CM will send referrals to [facility]. If accepted, Suhail would like to speak to admissions/billing to determine if the rehab will be covered by his insurance. CM will support Suhail with discharge planning considerations. Town of Residence: [place] Resides with: Spouse Natural Supports: , Sol Employment Status: Employed ([employer]) Instrumental Activities of Daily Living (ADLs): Independent Medications Medication Management: No Issues/Barriers identified Physical Functioning/Mobility Assistive Device: SPC Advance Directives Advance Directives: Do you have an Advance Directive: Y 10/29/17 09:32 AD On File at [facility]: N 10/23/23 14:54 Date Asked 12/18/23 12/18/23 13:15 AD Date Reviewed COLST On File at [facility] COLST Date Scanned Code Status Resuscitation Status DNR/DNI Insurance Coverage/Financial Issues Insurance: MCR Financial assistance, 100% Care Team Visit Care Team Role Provider Type Lilli Packer MD Primary Care Provider [facility] STAFF PHYSICIAN Myesha Cheek Other Providers REG OCCUPATIONAL THERAPI ST Deidre Kim, SENIOR LICENSING MANAGER Other Providers SPEECH LANGUAGE PATHOLOGIST Julissa Kraus RDN, CDCES Other Providers GYPSUM BLOCK SETTER Elsi Cheema Other Providers GYPSUM BLOCK SETTER José Miguel Rojas, SENIOR LICENSING MANAGER Other Providers SPEECH LANGUAGE PATHOLOGIST Gauri Hinojosa Other Providers SPEECH LANGUAGE PATHOLOGIST [place], SENIOR LICENSING MANAGER Other Providers SPEECH LANGUAGE PATHOLOGIST Kylie Celaya, SENIOR LICENSING MANAGER Other Providers SPEECH LANGUAGE PATHOLOGIST Sydney Hansen Other Providers OTHER Jagdish Gilbert RDN Other Providers GYPSUM BLOCK SETTER Nick Yo MD Emergency Provider [facility] STAFF PHYSICIAN Prasad Bowling Admit Provider NON-[facility] STAFF PHYSICIAN Attending Provider Discharge Potential Discharge Needs: Other (Acute rehab recommended by PT) Anticipated Barriers to Discharge: None Identified Patient/Family Education Needs: Review discharge instructions, discuss Ask Me Three Transportation: EMS Plan: PT is recommending acute stroke rehab for Suhail at this time; he is agreeable to this plan. CM will coordinate referrals for acute rehab. He will likely transport via EMS vs w/c van, depending on his mobility at the time of discharge. He will follow up with his PCP and discharge plan of care. CM will continue to follow. PFSH All Active Problems Thrombocytosis (Acute) Acute cerebrovascular accident (CVA) (Acute) Removal of staple (Acute) Former smoker (Acute) Type 2 diabetes mellitus (Acute) Vitamin D deficiency (Acute) Spinal stenosis (Acute) Sleep apnea (Acute) Peripheral neuropathy (Acute) Hyperlipidemia (Acute) Hearing loss (Acute) Current non-smoker but past smoking history unknown (Acute) Amputation of leg (Acute) L - 2006 Amputation of right foot (Acute) History of left below knee amputation (Acute) Diabetic polyneuropathy (Acute) Primary osteoarthritis of left shoulder (Chronic) Tinnitus, bilateral (Acute 05/16/17) Sensorineural hearing loss (SNHL) of both ears (Chronic 05/16/17) Medical History Infrarenal abdominal aortic aneurysm (AAA) without rupture Biceps tendon rupture Hx of fall Change in bowel function Leg weakness Lightheadedness Rotator cuff tear arthropathy of right shoulder Rotator cuff tear arthropathy of left shoulder Impacted cerumen, right ear Infected sebaceous cyst of skin Weight gain Sebaceous cyst (~08/19/19) referral states Right anterior chest Rupture of right distal biceps tendon (~09/2018) Osteomyelitis Foot drop, right Diabetic foot ulcer Ulcer of foot Shoulder pain, left Calf pain Bronchitis Physical deconditioning Insomnia Skin irritation Abdominal pain DNR (do not resuscitate) Myalgia Balance problem B12 deficiency Dysphagia Partial tear of left rotator cuff Most recent injection: 06/30/19 S/P RTC repair by Dr. Jarrett September 2017 MRI from 02/2018 showed full-thickness re-tear supraspinatus and infraspinatus Cellulitis of right toe right 4th toe Impingement syndrome of left shoulder SURGERY 10/09/17 Other synovitis and tenosynovitis, left shoulder SURGERY 10/09/17 Complete rotator cuff tear of left shoulder SURGERY 10/09/17 Discharge planning issues DVT prophylaxis Amputated toe of right foot Acute appendicitis with localized peritonitis Hernia of anterior abdominal wall Surgical History S/P cholecystectomy open History of transmetatarsal amputation of right foot History of colonoscopy H/O esophagogastroduodenoscopy (~06/09/18) History of spinal surgery Status post rotator cuff surgery Rotator Cuff Repair Repair of inguinal hernia Appendectomy (06/11/16) Amputation left below knee amputation Family History Mother CAD (coronary artery disease) Maternal Grandmother Diabetes Social History Smoking/Tobacco Use Status: Former Tobacco Use Quit Date: 02/18/17 Smoking risk assessment performed?: Yes Alcohol Intake: former Drug use: Never Substance use type: does not use Details: Pt states quit smoking 09/2017 Housing: house Current gender identity: male Do you feel safe at home: Yes Do you feel safe in your relationship?: Yes Additional Social history: Grew up outside of [place] in town in [place]. 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 SDOH(Care Management) Screening Will the Patient Participate in the Screening?: Yes Do you worry about having a steady place to live?: no Problems where you live: no known problems In the past 12 months, have you had to go without electric, gas, oil or water in your home?: no Have you or anyone in your house had to go without enough food to eat?: no Has lack of transportation kept you from medical appointments or from doing things needed for daily living?: no Has anyone in your support network made you feel unsafe for any reason?: no
--- NOTE | 2023-12-19 14:16 | SP_ITS ---
Date of service: 12/19/23 Time of Service: 12:00 Subjective Clinical (Bedside) Swallow Evaluation Speech Language Pathology Referred by: Shoshana Chang Referral Type: Clinical Swallow Evaluation Reason for Referral/HPI: Suhail Galeano is a 73 yo male adm to [facility] 12/18/23 with acute CVA. MRI revealed 'small area of restricted diffusion in the right side of the landon consistent with acute or subacute infarct'. ENVIRONMENTAL CONSULTANT IMPRESSIONS & RECOMMENDATIONS: Suhail presents with mild dysarthria and at least moderate dysphagia characterized by: L upper labial weakness, at least mild lingual discoordination (slight deviation to R on protrusion, difficulty with posterior transport of the bolus), and overall discoordinated swallow resulting in suspected penetration vs aspiration of thin liquids. He is considered high risk for aspiration, though risks can be mitigated with modified diet and aspiration precautions below. Recommend modified barium swallow study (MBSS) for further assessment to ensure diet safety prior to discharge. Patient is alert, oriented, and insightful re: deficits and strategies/precautions. FURTHER ENVIRONMENTAL CONSULTANT SERVICES: Patient to be followed while on unit. Upon Discharge, recommend ENVIRONMENTAL CONSULTANT services at halfway/acute rehab Diet Recommendations: SOLIDS: 6-Soft & Bite-Sized Solids LIQUIDS: 2-Mildly Thick Liquids MEDICATIONS: Whole one at time with 2-Mildly Thick Liquids OR if difficult- take whole in applesauce RISK MANAGEMENT: [place] upright for all PO intake. Upright in a chair for meals Encourage physical mobility as tolerated. Oral hygiene before/after PO intake using friction with toothbrush on all oral structures as tolerated Level of Assistance/Supervision: 1:1 supervision and assist as needed (severe L upper extremity paresis) Strategies/Adaptations/Assistive Equipment: Small sips and bites when eating Slow rate of intake Posture/Positioning Needs: Maintain upright position at least 30 minutes after meals SUBJECTIVE: Patient received alert/awake, conversant/making jokes, agreeable to evaluation Pain Reported? None Baseline Swallow Function: Patient denies swallowing difficulty prior to admission and eats a regular diet at baseline. PO Trials Assessed: IDDSI 0 Thin Liquids via cup and straw IDDSI 2 Mildly Thick Liquid via cup and straw IDDSI 7 Regular Solid - 2 pieces of peanut butter toast Oral Mechanism Examination: Dentition is WFL. Wears upper partial. Oral mucosa is WFL. Cranial Nerve Assessment: CN V ? Trigeminal Facial Sensation WNL Jaw Strength/ROM WNL ?WNL CN VII- Facial Impaired L upper labial strength IMPAIRED CN IX ? Glossopharyngeal Unable to visualize palate. No evidence of nasal emissions -- CN X ? Vagus WNL Vocal quality and volume. Strong/sharp volitional cough WNL CX XII ? Hypoglossal Lingual deviation of anterior aspect of tongue to the R Lingual strength appears WFL IMPAIRED Oral Phase Findings: Difficulty with bolus manipulation - Prolonged Difficulty with a-p transport - Prolonged and discoordinated Difficulty chewing Pharyngeal Phase Findings: Delayed swallow initiation Cough after swallow with thin liquids ? ASSESSMENT: Further ENVIRONMENTAL CONSULTANT Services indicated. Patient to be followed while on unit. Recommendation at Discharge: ENVIRONMENTAL CONSULTANT Services at Alf Facility vs acute rehab Suggested Referrals: N/A Recommended Procedures: MBSS/VFSS Recommendations: ? Education Provided to: Nursing, Patient, Family(), Physician Topics Addressed: ENVIRONMENTAL CONSULTANT findings, swallowing precautions, POC PLAN: Frequency: 2-3x/week for 1-2 weeks Goals: Retirement Goals: Patient will remain free from aspiration-related illness, malnutrition, and dehydration. Short Term Goals: Patient will tolerate Soft and Bite Size Diet and Mildly thick liquids without overt s/s aspiration across 2/2 visits. Patient will tolerate PO trials for consideration of diet upgrade without overt s/s aspiration across 2/2 visits. ENVIRONMENTAL CONSULTANT CPT Code: 84246 Clinical Swallowing Evaluation TOTAL TIME: 45 Minutes
[2023-12-19 14:34] VITALS: BP 125/57; PULSE 62; RESP 16; TEMP 36.2; O2SAT 94
--- NOTE | 2023-12-19 16:24 | CHAPLAIN ---
Suhail was sitting up in the recliner when I visited. He said he didn't have a need for a underwriting clerks supervisor visit and that he only wanted to see the doctor. His said they have been waiting all day to see the doctor. I let Shoshana Duval, MARGARET, know that Suhail and his wanted to speak with her.
--- NOTE | 2023-12-19 16:26 | PT.INTREAT ---
PT Notes Visit Reasons: CVA,thrombocytosis,ambulatory dysf,speech disturba Date: 12/19/2023 PRECAUTIONS: Fall. Standard. Activity as tolerated. L tramstibial prosthesis and R spiral AFO in place when OOB. SUBJECTIVE: Pt in recliner when approached for therapy this afternoon. agreed to participate with therapy session. OBJECTIVE: ? Telemetry in place, L TT prosthesis in place. R spiral AFO in place.? PAIN: denies VITALS: Closely monitored by nursing Therapeutic Activities 18360: Direct one-on-one instruction in dynamic activities to improve functional performance. ?? BED MOBILITY/TRANSFERS? Sit-stand: ? Mod A? Stand-sit: ??Min A ? Bed-Chair:? ?steady lift ? Chair-bed: steady lift Provided skilled cues and instruction on performance and technique throughout. ? Neuromuscular Re-education 52685: Activities that facilitate re-education of movement balance, posture, coordination, and proprioception or kinesthetic sense, requiring skilled tactile and verbal cues Exercises/techniques: ? Sit to stand from recliner to FWW 5x Sit to stand from recliner to HW 5x Sit to stand from recliner to steady lift 7x supervision Standing dynamic balance activity weight shifting L/R on steady lift Standing gluteal and quad sets steady lift Standing sit to stand transitions on steady lift seat 5mins Standing static 1min x3 on steady lift??? ASSESSMENT:?pt able to trail FWW vs. HW vs. Steady lift. with good result. pt had more stability with FWW vs HW with left knee block. and LUE support PLAN: Continue with balance training, global strengthening and general conditioning for improved safety, mobility and activity tolerance until pt is ready for DC. TREATMENT CODE/TIME: 08674p2, [id number] 40mins (4:00-4:40pm)
--- NOTE | 2023-12-19 16:51 | DI.MRI_ITS ---
Exam(s) MR BRAIN WO EXAM: MR BRAIN WO CLINICAL HISTORY: CVA TECHNIQUE: Multiplanar multisequence MRI of the brain was performed. COMPARISON: CT CT BRAIN NECK CTA from 12/18/2023 FINDINGS: Exam limited by patient motion. VENTRICLES AND EXTRA AXIAL SPACES: Normal in size and morphology for the patient's age. MIDLINE SHIFT: None. CEREBRAL PARENCHYMA: No focus of restricted diffusion to suggest acute infarct. No space-occupying le hunter identified. Mild atrophy consistent with the patient's age. Mild scattered foci of high signal in the white matter consistent with sequela of chronic microvascular disease. BRAINSTEM/CEREBELLUM: Abnormal area of restricted diffusion on the right side of landon consistent with acute to subacute infarct. High signal faintly visible on T2 and FLAIR images. VISUALIZED PARANASAL SINUSES: Clear. MASTOIDS:Minimal scattered fluid. Vasculature: Normal flow void. PITUITARY GLAND: Unremarkable. ORBITS: Unremarkable. IMPRESSION: Small area of restricted diffusion in the right side of the landon consistent with acute or subacute in farct. DATA REPOSITORY:
--- NOTE | 2023-12-19 17:10 | DI.US_ITS ---
APPROVED REPORT EXAM: Comprehensive 2D, Doppler, and color-flow Echocardiogram Patient Location: In-Patient Room/Bed: [facility] Sanitary Plumber: Maribell Kuhn RDCS (AE) Indications: CVA Echo Enhancing Agent Indication: Rule out Shunt Agent(s) / Amount(s) Used: Agitated Saline 30.0 cc Comments: Contrast study was performed with 3 IV injections of 10ccs of agitated normal saline, at [facility], with cough and post valsalva maneuver. Other Information Study Quality: Fair. Technically limited study due to body habitus, inability to position patient exa m was done supine bedside. Conclusion Technically limited study Left ventricular wall thickness chamber size and systolic function appear within the range of normal Normal right ventricular function and size Both atria are normal in size Aortic valve is trileaflet and mildly sclerotic Mild mitral annular calcification Study is technically inadequate to determine if any intracardiac shunting was present Wall motion Left Ventricle The overall left ventricular systolic function appears normal. Limited follow up exam. LVEF is 54%. Atria Saline bubble contrast intravenous injection is inconclusive due to non visualization of saline.. Auto EF LV EDV A4C 132.7 mL LV EDV A2C 119.8 mL LV EDV BP 126.5 mL LV ESV A4C 61.3 mL LV ESV A2C 54.6 mL LV ESV BP 58.1 mL LVEF(%) A4C 53.8 % LVEF(%) A2C 54.4 % LVEF(%) BP 54.0 % LV SV A4C 71.4 ml LV SV A2C 65.2 ml LV SV BP 68.3 ml LV CO A4C 4.0 L/min LV CO A2C 3.9 L/min LV CO BP 4.0 L/min HR A4C 56.16 BPM HR A2C 60.28 BPM LV EDV Index (BP)
[2023-12-19 20:56] VITALS: BP 124/62; PULSE 60; RESP 20; TEMP 36.7; O2SAT 98
[2023-12-19] MEDS: Gabapentin 300 MG CAP 1500 MG PO (21:14)
[2023-12-19] MEDS: Rosuvastatin 20 MG TAB PO (21:16)
[2023-12-19] MEDS: diphenhydrAMINE 25 MG CAP PO (23:24)
[2023-12-19 23:39] VITALS: BP 135/77; PULSE 73; RESP 18; TEMP 36.7; O2SAT 96
[2023-12-20 02:58] VITALS: BP 132/68; PULSE 57; RESP 15; TEMP 36.4; O2SAT 94
[2023-12-20 07:08] LABS: Abs Immature Grans 0.03 10^3/uL (0.0-0.06); Absolute Basophil Count 0.19 10^3/uL (0.0-0.2); Absolute Eosinophil Count 0.55 10^3/uL (0.0-0.7); Absolute Lymphocyte Count 2.23 10^3/uL (1.2-3.4); Absolute Monocyte Count 0.69 10^3/uL (0.1-0.8); Absolute Neutrophil Count 6.44 10^3/uL (1.2-6.7); Basophils % 1.9 %; Eosinophils % 5.4 %; HCT 42.9 % (40.0-50.0); HGB 14.1 g/dL (13.5-17.5); Immature Grans % 0.3 %; MCH 29.2 pg (27.0-33.0); MCHC 32.9 % (32.0-36.0); MCV 89 fL (80-95); MPV 9.8 fL (8.0-11.0); Monocytes % 6.8 %; Neutrophils % 63.6 %; RBC 4.83 10^6/uL (4.36-5.78); RDW 13.4 % (11.8-14.1); RDW-SD 43.8 fL; WBC 10.13 10^3/uL (4.4-10.8)
[2023-12-20 07:24] VITALS: BP 133/52; PULSE 60; RESP 16; TEMP 36.3; O2SAT 93
[2023-12-20 07:34] LABS: Platelet Count 956 10^3/uL (130-400)
[2023-12-20 07:35] LABS: Anion Gap 9.4 mmol/L (3-11); BUN 13 mg/dL (7-18); CO2 27.6 mmol/L (21.0-32.0); CREATININE 1.1 mg/dL (0.70-1.30); Calcium 9.3 mg/dL (8.5-10.1); Chloride 106 mmol/L (98-107); Estimated GFR 70.88 (mL/min/1.73m2); Glucose 122 mg/dL (74-106); Sodium 143 mmol/L (136-145)
[2023-12-20] MEDS: Aspirin 81 MG CHEW PO (09:37)
[2023-12-20] MEDS: Gabapentin 300 MG CAP 900 MG PO (09:37)
[2023-12-20] MEDS: Cholecalciferol (Vitamin D3) 1,000 UNIT TAB 2000 UNITS PO (09:37)
[2023-12-20] MEDS: Pantoprazole 40 MG TABCR PO (09:37)
[2023-12-20] MEDS: Clopidogrel 75 MG TAB PO (09:38)
[2023-12-20] MEDS: Insulin Glargine 300 UNITS/3 ML PEN 48 UNITS SC (09:39)
[2023-12-20] MEDS: Normal Saline Flush 10 ML SYR IVP (09:40)
[2023-12-20] MEDS: Enoxaparin 40 MG/0.4 ML SYR SC (10:00)
[2023-12-20 11:13] VITALS: BP 144/71; PULSE 68; RESP 18; TEMP 36.5; O2SAT 96
--- NOTE | 2023-12-20 11:30 | PT.INTREAT ---
PT Notes Visit Reasons: CVA,thrombocytosis,ambulatory dysf,speech disturba Physical Therapy Inpatient Treatment Note Date: 12/20/2023 Precautions: Fall. Standard. Activity as tolerated. L tramstibial prosthesis and R spiral AFO in place when OOB. Subjective: Could no longer move L arm as of this morning. Could not stand safely enough and needed STEDY use for standing. Objective: General Observation L UE now flaccid . L TT prosthesis in place. R spiral AFO in place. Speech mildly slurred. Mental Status: Alert and oriented as to person, place, time, and purpose. Able to pay attention, focus, and respond appropriately. Pain: None reported Vital Signs: Closely monitored by nursing staff ROM: Right Upper Extremity: Shoulder Flexion WFL. Shoulder abduction WFL. Elbow flexion WFL. Wrist flexion WFL. Functional opening and closing of hand WFL. Left Upper Extremity: Shoulder now flaccid and limp at the side, no active movement available Right Lower Extremity: Hip flexion WFL. Hip abduction WFL. Knee flexion 10 degrees to 110 degrees. Knee extension -10 degrees ankle dorsiflexion ) degrees, patient with R foot drop. Ankle plantarflexion WFL. Left Lower Extremity: Hip flexion lacks the last 25% of AROM. Hip abduction lacks the last 25% of AROM. Knee flexion 30 degrees to 90 degrees. Ankle dorsiflexion not applicable, patient with L TT prosthesis. Ankle plantarflexion not applicable, patient with L TT prosthesis Strength: Right Upper Extremity: Shoulder flexors 4/5. Shoulder abductors 4/5. Elbow flexors 5/5. Elbow extensors 5/5. Compliance Vice President strong. Left Upper Extremity: L UE major muscle groups now 0/5. Right Lower Extremity: Hip flexors 4/5. Hip abductors 4/5. Knee flexors 3-/5. Knee extensors 3-/5. Ankle dorsiflexors 0/5. Ankle plantarflexors 3/5. Left Lower Extremity: Hip flexors 2-/5. Hip abductors 2-/5. Knee flexors 3-/5. Knee extensors 3-/5. Ankle dorsiflexors 0/5. Ankle plantarflexors 0/5. Bed Mobility/Transfers: Minimal cueing provided for use of B hands as needed for support, movement sequence, AD management, and posture to reduce fall risk and minimize pain report Sit to stand moderate assist using STEDY lift Stand to sit moderate assist using STEDY lift Bed to toilet moderate assist using STEDY lift Toilet seat to moderate assist using STEDY lift Gait: Unable to safely advance limb and tolerate standing without risk of falling Balance: Static Sitting: Normal Dynamic Sitting: Normal Static Standing: Fair Dynamic Standing: Unable Special Tests: Mobility Limitations Standardized Measure [facility] AM-[facility] 6 clicks Basic Mobility Inpatient Short Form: Raw Score: 9 CMS Score: 81% deficit% 4-Stage Balance test: Deferred due to safety reasons Pronator drift: Positive on L Tongue Deviation: Deviated to R Rhomberg test: Deferred due to safety reasons Brunnstrom Stage for Upper Extremity: Stage 1: Flaccid and unable to move ASSESSMENT: Early neurological worsening observed between yesterday morning and today. Motor tone in L UE now evolved to flaccidity unlike in yesterday's assessment where the L UE muscle groups demonstrated 2-/5 strength with shoulder flexion and abduction to about 40-60 degrees and L thumb was able to oppose the index and the middle finger. Patient also regressed from being able to walk from bathroom back to chair yesterday covering about 12-15 steps with minimal assist of PT and stand by assist of Nurse Hussein to requiring use of STEDY lift for all transfers for this session. Patient will require acute rehab placement to optimize neurologic recovery during the next 60-90 days to minimize effect of early neurological worsening. Plan of Care/Treatment Plan: Patient will highly benefit from skilled physical therapy services including functional mobility training, bed mobility/transfer training, gait and balance training, therapeutic exercises, therapeutic activity, caregiver/staff/family education and training 1x/day, 7 days/week x 1 week. Initiate Physical Therapy intervention for strengthening, bed mobility, transfers, gait, stairs, balance training, use of assistive device. DISCHARGE RECOMMENDATIONS: [] Home with no services [] [] Home with services [specify] [] Home with outpatient PT [] [] SNF for continued rehabilitation [] [] Custodial Care [] [] SNF versus LTC based on ability to participate and progress [] [X] Acute stroke rehabilitation facility to optimize neurologic recovery and facilitate motor return TREATMENT CODE/TIME: 65846 x 32 minutes for 2 units (11:30-12:02).
--- NOTE | 2023-12-20 13:31 | ST.MBS_ITS ---
Date of Service Date of service: 12/20/23 Time of Service: 13:31 Modified Barium Swallow Study Findings: Video fluoroscopic Swallowing Evaluation (VFSE) / Modified Barium Swallow Study (MBSS) Speech Language Pathology Report Patient referred for VFSE/MBSS from Suzanne Patton given concerns for aspiration during bedside Clinical Swallow Evaluation. HPI & Patient report of function: Suhail Galeano is a 73 yo male with a history of LLE below the knee amputation, DM2, SNHL, past smoking history, sleep apnea, cholecystitis, adm to [facility] 12/18/23 with acute CVA and speech changes and L hemiplegia. MRI revealed 'small area of restricted diffusion in the right side of the landon consistent with acute or subacute infarct'. He was evaluated by DRUM REEL CUTTER at bedside and MBSS was rec'd due to suspected delayed and disorganize/discoordinated swallow. Patient was placed on L2 Mildly Thick Liquids and L6 Soft/Bite Size Solids diet. IMPRESSIONS: Swallow safety is largely preserved; swallow efficiency is preserved. Mild, likely improving, suspected oropharyngeal dysphagia. Characterized primarily by delayed pharyngeal initiation with bolus at the level of pyriforms prior to swallow onset. Fortunately, patient does have excellent airway protection and presents with anticipatory pharyngeal posturing prior to oral transit during which he elevates the thyroid cartilage and closes the laryngeal vestibule. Therefore, despite a significant delayed pharyngeal onset, there is only flash shallow penetration for liquid bolus. Pharyngeal motility is adequate to prevent any notable pharyngeal residue and there is low risk of aspiration after swallow completion. Of note, there does appear to be some transient mild hypertrophy at the cricopharyngeus muscle but does not appear to functionally impede bolus flow through the UES. Patient appears to be at low risk for potential aspiration PNA and/or pulmonary compromise and low risk for malnutrition, low risk for dehydration. Diet modification is indicated only for ease of mastication and due to upper extremity impairment ; non-oral nutrition is not indicated. Swallow prognosis is good given: Positive prognostic factors: Severity, Time since onset, Family/caregiver support, Cognitive status, and pending patient/caregiver training in risk management as outlined, including use of trialed compensatory strategies. Patient appears to be a good candidate for behavioral swallow rehabilitation. RECOMMENDATIONS: Diet Texture Recommendation:? IDDSI LEVEL SOLIDS 6-Soft & Bite-Sized Solids LIQUIDS 0-Thin Liquids MEDICATIONS Whole with 0-Thin Liquids Diet texture modification is per patient's preference; please adjust diet textures at patient's discretion & collaboration with care team. Do not alter medications (e.g., cut)? without advice from your MD or pharmacist. Risk Management Strategies:? Behavioral reflux precautions, including upright position during + 90 mins after meals. Small bites, approx [id number] Small sips, approx 10 mL Control risk factors for aspiration pneumonia via (a) thorough oral hygiene & (b ) maintaining physical mobility as tolerated PLAN: Therapy: Further Training/Education in Risk Management May benefit from further DRUM REEL CUTTER services to address mild dysarthria Goals: Defer to treating clinician Follow-up exam: N/A ----- OBJECTIVE Videofluoroscopic Swallow Evaluation (VFSE/MBSS) was conducted in the lateral[ and [id number]] projection by Speech-Language Pathologist, in collaboration with Radiologist, to evaluate oropharyngeal swallow function. Anatomic view under fluoroscopy: WFL PO Barium Contrast Trials Oral barium water-soluble contrast was administered as follows: IDDSI Level 0 Varibar thin liquid (40% w/v) IDDSI Level 2 Varibar nectar thick/mildly thick liquid (40% w/v) IDDSI Level 4 Varibar pudding/pureed/extremely thick (40% w/v) IDDSI Level 7 Regular Solid: 1/2 mayra cracker coated in 3 mL Varibar pudding 13 mm barium tablet taken with Thin Liquids. MBSImP Component Scores: COMPONENT Scale SCORE 1 Lip closure (0-4) 0 Resulted in no labial escape 2 Hold Position (0-3) 2 Resulted in posterior escape of less than half of the bolus 3 Bolus Preparation (0-4) 1 Resulted in slow prolonged chewing /mashing with complete re-collection 4 Bolus Transport (0-4) 2 Was with slowed tongue motion 5 Oral Residue (0-4) 1 Was a trace, lining oral structures 6 Swallow Initiation (0-4) 3 Occurred when the bolus head was in the pyriform sinuses 7 Soft Palate Elevation (0-4) 0 Resulted in no bolus between soft palate and the pharyngeal wall 8 Laryngeal Elevation (0-3) 0 Demonstrated complete superior movement of thyroid cartilage with complete approximation of arytenoids to epiglottic petiole 9 Anterior Hyoid Motion (0-2) 0 Demonstrated complete anterior movement 10 Epiglottic Movement (0-2) 0 Resulted in complete inversion 11 Laryngeal Closure (0-2) 0 Was complete with no air or contrast in laryngeal vestibule 12 Pharyngeal Stripping Wave (0-2) 1 Was present, but diminished 13 Pharyngeal Contraction (0-3) NA 14 PES Opening (0-3) 1 Demonstrated partial distension /partial duration, with partial obstruction of flow 15 Tongue Base Retraction (0-4) 1 Allowed a trace column of contrast or air between tongue base and pharyngeal wall 16 Pharyngeal Residue (0-4) 1 Showed a trace within or on pharyngeal structures 17 Esophageal Clearance (0-4) NA Results: COMPONENT Scale SCORE 1 Oral Score (0-18) 8 2 Pharyngeal Score (0-29) 2 3 Esophageal Score (0-4) 0 Penetration-Aspiration Scale: COMPONENT Scale SCORE 1 Thin liquid (1-8) 2 Contrast entered the airway, remained above the vocal folds, and was ejected from the airway. 2 [place] thick (1-8) 1 Contrast did not enter the airway 3 Honey thick (1-8) NA 4 Pudding thick (1-8) 1 Contrast did not enter the airway 5 Cookie (1-8) 1 Contrast did not enter the airway Trialed Compensatory Strategies & Outcome: Maneuvers Successful (+) Unsuccessful (-) Postures Successful (+) Unsuccessful (-) 3 second Preparatory Set? ?+/- Chin Tuck Posture? ? Cough? ? Posterior Head tilt? Reflexive? Cued? Throat Clear? ? Head Tilt to? Reflexive? Left? Cued? Right? ? Saliva swallow? ? Head Turn/Rotate to? ? Supraglottic Swallow? Left? ? Super- supraglottic Swallow? Right? ? Bolus Modifications Successful (+) Unsuccessful (-) Delivery/Alternating Consistencies ? Follow with Liquid Wash ? Follow with Solid Bolus? Delivery/Via Straw? ? Reduced Volume? + Reduced Rate of Intake? + ? Increased Viscosity? + ? Other:?? ? Thank you for allowing us to take part in this patient's care. Please feel free to contact the [facility] Speech Language Pathology Department with any questions/concerns.
--- NOTE | 2023-12-20 13:40 | DI.RAD_ITS ---
Exam(s) RF MODIFIED SPEECH BA SWALLOW EXAM: RF MODIFIED SPEECH BA SWALLOW CLINICAL HISTORY: Speech pathology therapy for dysphagia work-up TECHNIQUE: Modified barium swallow was performed in conjunction with speech pathology. CONTRAST MATERIAL: Multiple consistencies of oral barium contrast were administered. COMPARISON: No exams were available for comparison FINDINGS: Note that this is not a dedicated esophagram, distal esophagus not evaluated. There is no evidence of aspiration with any consistency. Flash laryngeal penetration noted with thin liquid. No significant residue in the vallecula. IMPRESSION: Flash penetration with thin liquid. Speech pathology report to follow. RADIATION DOSE DELIVERED: facundo Santamaria=21.6 mGy
[2023-12-20] MEDS: Barium Sulfate 700 MG TAB PO (13:43)
--- NOTE | 2023-12-20 13:44 | DSE_ITS ---
Date of service: 12/20/23 Time of Service: 13:44 DS: Diagnosis Discharge Diagnosis (1) Acute cerebrovascular accident (CVA): Status: Acute (2) Thrombocytosis: Status: Acute (3) Type 2 diabetes mellitus: Status: Acute (4) Hyperlipidemia: Status: Acute Discharge Plan Disposition Patient Disposition: Transfer-Acute Inpatient Care Specific Acute Inpt Facility: Other Condition: Stable Discharge Details Reason For Visit: CVA,thrombocytosis,ambulatory dysf,speech disturba Admit Date/Time: 12/18/23 17:47 Admit Provider: Prasad Bowling Attending Provider: Prasad Bowling Primary Care Provider: Lilli Packer V Hospital Course Hospital Course: This 73-year-old male patient with a past medical history of traumatic leg amputation, diabetes, hypertension, presented to the ED at [facility] via private vehicle with spouse for evaluation of difficulty ambulating and speech disturbance. Patient reporting last known well date 12/17/2023 at the time where he was going to bed at 2130, then waking up this morning at 9 AM with difficulty ambulating and later on with speech disturbances. Later during that same day the spouse decided to drive him down to the emergency room. On arrival, right face and left arm disturbances were noticed. The patient remained hemodynamically, stable in the ED. Workup in the ED was significant for head/neck CTA with the following results: CT BRAIN: There is no evidence of intracranial hemorrhage, mass effect, or shift of midline structures. There are no extra-axial fluid collections. Ventricles are not enlarged or shifted. There are no ring enhancing lesions in the brain and no abnormal meningeal enhancement. IMPRESSION for neck CTA: 1. There is significant calcified and noncalcified plaque at the level the carotid bifurcations and proximal ICAs bilaterally. There is approximately 50 percent stenosis on the right side and 40 percent stenosis on the left side at these levels. Recommend follow-up Doppler imaging to determine velocities. 2. Patent vertebral arteries. No significant atherosclerotic narrowing. No dissection evident. 3. Patent intracranial arteries. 4. No obvious acute intracranial findings. No ring enhancing lesions no abnormal meningeal enhancement. MRI completion was recommended. Other significant lab work showed platelet level at 934 today from 781 on 10/21/2023. Chemistry was unremarkable except for glucose at 146 and chloride at 108. Consultation with [facility] teleneurology service with admission for completion of stroke work up. MRI showed Small area of restricted diffusion in the right side of the landon consistent with acute or subacute infarct. His lisinopril was placed on hold for permissive hypertension. he was started on crestor and DAPT, receiving a plavix load of 300 mg and started on 75 mg daily after admission he was noted to have increased left upper extremity flaccidity, with regression of ambulatory function and teleneuro re-consulted. Repeat head CT showed no acute intracranial findings. No hemorrhage seen. Teleneuro reviewed all new imaging and case discussed, no new medication or treatment recommendations, continued stroke workup completed. patient has remained hemodynamically stable with BP 140's systolic. He has been accepted at [facility] rehab for acute stroke rehabilitation. blood sugars have been well controlled on reduced basal insulin. continue to monitor and adjust as needed. metformin on hold. also noted was thrombocytosis with platelets of 900, continue asa and plavix, l iver function normal peripheral smear pending, consider heme-onc consultation if not resolving. -Echo with bubble completed: Study was unable to assess for PFO. -Telemetry: Ongoing sinus all rhythm/Mobitz type blocks,/no A-fib -A1c 6.2 , TSH 0.9, lipid chol 149 trig 145 HDL 44, LDL 76 Physical therapy consult: Recommendation for acute rehab Speech pathology therapy consult: MBSS in the morning due to difficulty swallowing Occupational therapy consult: Ongoing Barium Swallow TECHNIQUE: Modified barium swallow was performed in conjunction with speech pathology. CONTRAST MATERIAL: Multiple consistencies of oral barium contrast were administered. COMPARISON: No exams were available for comparison FINDINGS: Note that this is not a dedicated esophagram, distal esophagus not evaluated. There is no evidence of aspiration with any consistency. Flash laryngeal penetration noted with thin liquid. No significant residue in the vallecula. IMPRESSION: Flash penetration with thin liquid. Speech pathology report to follow. patient has been accepted at [facility] rehabilitation and is being transported by ground EMS patient has been medically stable discussed with DR Aminah Guadalupe Meds and New Rx's Prescriptions: New insulin aspart U-100 100 unit/mL (3 mL) Insulin Pen 0 unit subcut 0800,1200,1700 Qty: 0 0RF rosuvastatin 20 mg Tablet 20 mg PO QPM Qty: 0 0RF insulin glargine [Lantus Solostar U-100 Insulin] 100 unit/mL (3 mL) Insulin Pen 48 unit subcut DAILY Qty: 0 0RF acetaminophen 325 mg Tablet 650 mg PO Q6H PRN PRNQty: 0 0RF clopidogrel 75 mg Tablet 75 mg PO DAILY Qty: 0 0RF Continued gabapentin 300 mg capsule See Rx Instructions PO BID Rx Instructions: orally twice a day; PCP med list reports 900mg Qam and 1,500 Qpm cholecalciferol (vitamin D3) 50 mcg (2,000 unit) capsule 50 mcg PO DAILY cyanocobalamin (vitamin B-12) 1,000 MCG/ML solution 1,000 mcg IJ .monthly melatonin 3 mg Tablet 10 mg PO HS PRN pantoprazole 40 mg tablet,delayed release (DR/EC) 40 mg PO DAILY Patient Comments: TAKE 1 TABLET BY MOUTH ONCE DAILY docusate sodium [Colace] 100 MG capsule 100 mg PO DAILY PRN aspirin [Aspirin Low-Strength] 81 MG tablet,chewable 81 mg PO DAILY oxycodone 15 MG tablet 15 mg PO Q6H PRN (Reason: pain) Held lisinopril 2.5 mg tablet 2.5 mg PO DAILY Hold Instructions: until blood pressure allows insulin aspart U-100 [Novolog PenFill U-100 Insulin] 100 unit/mL cartridge 1 sliding scale dose SC .before meals Hold Instructions: upon discharge to home Rx Instructions: up to a total of 55units in a 24hr period. insulin degludec [Tresiba FlexTouch U-200] 200 unit/mL (3 mL) insulin pen 60 unit SUBCUT .nightly Hold Instructions: upon discharge to home Patient Comments: med list noted 80 units, patient stated taking 60 units Trulicity 3 mg/0.5 mL pen injector 3 mg SUBCUT .WEEKLY Hold Instructions: upon discharge to home Patient Comments: INJECT CONTENTS OF ONE PEN INJECTOR SUBCUTANEOUSLY ONCE WEEKLY FOR DIABETES No Action diphenhydramine-acetaminophen [Tylenol PM Extra Strength] 25-500 mg tablet 2 - 3 tab PO QHS PRN ezetimibe [Zetia] 10 mg tablet 10 mg PO DAILY metformin 850 mg tablet 850 mg PO .nightly Patient Comments: TAKE 1 TABLET BY MOUTH ONCE DAILY IN THE EVENING Discharge Instructions Instructions: Stroke, Thrombocytosis Referrals: NEUROLOGY,[facility] [OTHER] - Activity:: Activity as Tolerated Equipment/Supplies:: No Equipment Needed Diet:: Carb Counting Discharge Orders Discharge Orders: Discharge Order (Routine); Ordered 11/01/24 Ordered By: Suzanne Patton DS: Summary Time Spent with Patient providing and/or coordinating discharge services: Greater than 30 minutes Status at Discharge Functional status at discharge: wheelchair bound Overall status at discharge: patient is not back to baseline Mental Status: mental status grossly normal Speech and Movement: slurred speech Mood: congruent mood Affect: normal affect Quality:SDOH Health Related Social Needs: No Data to Display Exam Narrative Exam Narrative: Elderly male of stated age no acute distress sitting up in his chair left side flaccid. Full range of motion on his right upper extremity good strength no ataxia able to do finger-nose with no difficulty facial features symmetrical EOMs intact oral mucosas moist neck is supple full range of motion no JVD cardiovascular regular rate and rhythm telemetry # show first-degree AV block and intermittent Mobitz type II no atrial fibrillation. Respirations even unlabored breath sounds are clear abdomen is soft nontender. Neurologic he is awake alert oriented to person place and situation his speech is slurred. Psychiatric appropriate mood and affect Psych Mental Status: mental status grossly normal Speech and Movement: slurred speech Mood: congruent mood Affect: normal affect DS: Data Vitals/I&O Vitals and I&O: Vital Signs Temperature 36.5 C 12/20/23 11:13 Temperature Source Tympanic 12/20/23 11:13 Pulse 68 12/20/23 11:13 Pulse Rhythm Regular 12/18/23 18:16 Pulse 57 L 12/18/23 17:31 Respiratory Rate 18 12/20/23 11:13 Respiratory Effort Normal, Non-Labored 12/18/23 18:16 Respiratory Depth Normal 12/18/23 18:16 Respiratory Pattern Normal 12/18/23 18:16 Blood Pressure 144/71 H 12/20/23 11:13 Blood Pressure Mean 77 12/18/23 17:31 Blood Pressure Position Sitting 12/18/23 13:05 Pulse Oximetry 96 12/20/23 11:13 Oxygen Delivery Method Room Air 12/20/23 11:13 Oxygen Flow Rate 0 12/20/23 11:13 Pain Level 0 12/20/23 07:24 Comment RN notified 12/20/23 11:13 Intake & Output 12/19/23 12/20/23 12/20/23 23:59 11:59 23:59 Intake Total 250 / 250 Output Total 300 / 300 Balance -50 / -50 Intake: IV Oral 240 / 240 Output: Urine 300 / 300 Other: Urine Color Yellow Urine Appearance Clear Urine Odor None Stool Size Moderate Small Stool Characteristics Formed Soft Brown Data Completed and Pending Labs on day of discharge: Labs from last 24 hours 12/20/23 12/19/23 06:54 06:55 WBC 10.13 RBC 4.83 Hgb 14.1 Hct 42.9 MCV 89 MCH 29.2 MCHC 32.9 RDW 13.4 Plt Count 956 H* MPV 9.8 Immature Gran % 0.3 Neutrophils % 63.6 Lymphocytes % 22.0 Monocytes % 6.8 Eosinophils % 5.4 Basophils % 1.9 Nucleated RBC % 0.0 Absolute Neutrophils 6.44 Absolute Lymphocytes 2.23 Absolute Monocytes 0.69 Absolute Eosinophils 0.55 Absolute Basophils 0.19 Sodium 143 Potassium 4.0 Chloride 106 Carbon Dioxide 27.6 Anion Gap 9.4 BUN 13 Creatinine 1.1 Est GFR (CKD-EPI 2020) 70.88 Glucose 122 H Calcium 9.3 Pathology Consult Spec PFSH All Active Problems Thrombocytosis (Acute) Acute cerebrovascular accident (CVA) (Acute) Removal of staple (Acute) Former smoker (Acute) Type 2 diabetes mellitus (Acute) Vitamin D deficiency (Acute) Spinal stenosis (Acute) Sleep apnea (Acute) Peripheral neuropathy (Acute) Hyperlipidemia (Acute) Hearing loss (Acute) Current non-smoker but past smoking history unknown (Acute) Amputation of leg (Acute) L - 2005 Amputation of right foot (Acute) History of left below knee amputation (Acute) Diabetic polyneuropathy (Acute) Primary osteoarthritis of left shoulder (Chronic) Tinnitus, bilateral (Acute 05/16/17) Sensorineural hearing loss (SNHL) of both ears (Chronic 05/16/17) Medical History Infrarenal abdominal aortic aneurysm (AAA) without rupture Biceps tendon rupture Hx of fall Change in bowel function Leg weakness Lightheadedness Rotator cuff tear arthropathy of right shoulder Rotator cuff tear arthropathy of left shoulder Impacted cerumen, right ear Infected sebaceous cyst of skin Weight gain Sebaceous cyst (~08/19/19) referral states Right anterior chest Rupture of right distal biceps tendon (~09/2018) Osteomyelitis Foot drop, right Diabetic foot ulcer Ulcer of foot Shoulder pain, left Calf pain Bronchitis Physical deconditioning Insomnia Skin irritation Abdominal pain DNR (do not resuscitate) Myalgia Balance problem B12 deficiency Dysphagia Partial tear of left rotator cuff Most recent injection: 06/30/19 S/P RTC repair by Dr. Jarrett September 2017 MRI from 02/2018 showed full-thickness re-tear supraspinatus and infraspinatus Cellulitis of right toe right 4th toe Impingement syndrome of left shoulder SURGERY 10/09/17 Other synovitis and tenosynovitis, left shoulder SURGERY 10/09/17 Complete rotator cuff tear of left shoulder SURGERY 10/09/17 Discharge planning issues DVT prophylaxis Amputated toe of right foot Acute appendicitis with localized peritonitis Hernia of anterior abdominal wall Surgical History S/P cholecystectomy open History of transmetatarsal amputation of right foot History of colonoscopy H/O esophagogastroduodenoscopy (~06/09/18) History of spinal surgery Status post rotator cuff surgery Rotator Cuff Repair Repair of inguinal hernia Appendectomy (06/11/16) Amputation left below knee amputation Family History Mother CAD (coronary artery disease) Maternal Grandmother Diabetes Social History Smoking/Tobacco Use Status: Former Tobacco Use Quit Date: 02/18/17 Smoking risk assessment performed?: Yes Alcohol Intake: former Drug use: Never Substance use type: does not use Details: Pt states quit smoking 09/2017 Housing: house Current gender identity: male Do you feel safe at home: Yes Do you feel safe in your relationship?: Yes Additional Social history: Grew up outside of [place] town in [place]. 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 Time Spent with Patient Time Spent with Patient: 70-84 minutes4 Time was spent: preparing to see the patient(eg.review tests), obtaining and/or reviewing separately otained hiistory, ordering medications,tests, procedures, indepentently interpreting results, counseling the patient and care coordination
[2023-12-20] MEDS: Barium Sulfate Oral Paste 40% W/V 230 ML TUBE PO (13:46)
[2023-12-20] MEDS: Barium Sulfate 81% w/w for Oral Suspension 148 GM BTL PO (13:47)
[2023-12-20] MEDS: Barium Sulfate 40% W/V 240 ML BTL PO (13:47)
--- NOTE | 2023-12-20 14:26 | PDOC.CMDIS ---
Date of service: 12/20/23 Time of Service: 14:26 LACE Index Scoring Tool Questions: Length of Stay (in days): 2 Was the patient admitted via the E.D.?: Yes Comorbidities: Cerebrovascular Disease and Diabetes w/o Complication E.D. Visits: 1 Answers: Total Score: 8 Risk of Readmission: Low Risk Care Management Discharge Plan Reason for Hospitalization: CVA, thrombocytosis, ambulatory dysfunction, speech disturbance Discharge Plan: Suhail transferred to [facility] for acute rehab today. CM discussed this plan with him, his , the provider and admissions at [facility]; Suhail is happy to be going to receive acute rehab post stroke. He transported via EMS, coordinated by CM. He will follow up with his PCP and discharge plan of care. Patient/Family Education Needs: Review discharge instructions and limitations, discussion of self care needs including ask me three. Services Needed at Discharge: [facility] Facility ([facility]; acute rehab) and Transportation (EMS; [facility]) [facility] Health Related Social Needs: No Data to Display
--- NOTE | 2023-12-20 15:40 | NUR.NOTE ---
IV removed, DSG applied. Pt transported to [facility] via [facility], report given to Lynette at [facility].
== END 2023-12-20 15:13 | disposition short-term general hospital (02) | DRG 65 ==
LOC: ER 17:06 → MS 17:48
PROVIDERS: Nurse Practitioner Acute Care; Admitting Provider Family Medicine; Emergency Provider Student in an Organized Health Care Education/Training Program; PCP Family Medicine; Visit Provider Family Medicine
DX: I63.89 Other cerebral infarction (principal); G81.94 Hemiplegia, unspecified affecting left nondominant side; D75.839 Thrombocytosis, unspecified; E11.42 Type 2 diabetes mellitus with diabetic polyneuropathy; Z79.4 Long term (current) use of insulin; E78.5 Hyperlipidemia, unspecified; R41.0 Disorientation, unspecified; Z79.84 Long term (current) use of oral hypoglycemic drugs; Z79.85 Long-term (current) use of injectable non-insulin antidiabetic drugs; R29.810 Facial weakness; Z87.891 Personal history of nicotine dependence; I71.43 Infrarenal abdominal aortic aneurysm, without rupture; I10 Essential (primary) hypertension; E55.9 Vitamin D deficiency, unspecified; H90.3 Sensorineural hearing loss, bilateral; M19.012 Primary osteoarthritis, left shoulder; G47.30 Sleep apnea, unspecified; Z66 Do not resuscitate; E53.8 Deficiency of other specified B group vitamins; Z89.512 Acquired absence of left leg below knee
CPT/HCPCS: 00123; 36415; 36416; 70496; 70498; 80048; 80053; 80061; 82962; 92526; 93005; 93306; 97112; 97162; 97530; 99285; J1650; 70450; 70551; 74221; 83036; 83735; 84443; 84484; 85025; 93010; 93880; 99223; 99233; 99239; J1815; J2060; J3490

== ENCOUNTER 2024-01-15 16:59 | Outpatient (REF) | payer MEDICARE, SELFPAY ==
[2024-01-15 16:50] LABS: Abs Immature Grans 0.05 10^3/uL (0.0-0.06); Absolute Eosinophil Count 0.61 10^3/uL (0.0-0.7); Absolute Monocyte Count 0.73 10^3/uL (0.1-0.8); Absolute Neutrophil Count 8.07 10^3/uL (1.2-6.7); Basophils % 1.7 %; Eosinophils % 5.3 %; HCT 40.7 % (40.0-50.0); HGB 12.8 g/dL (13.5-17.5); Immature Grans % 0.4 %; Lymphocytes % 15.9 %; MCH 28.3 pg (27.0-33.0); MCHC 31.4 % (32.0-36.0); MCV 90 fL (80-95); MPV 10.4 fL (8.0-11.0); Monocytes % 6.4 %; Neutrophils % 70.3 %; RBC 4.52 10^6/uL (4.36-5.78); RDW 13.4 % (11.8-14.1); RDW-SD 44.4 fL; WBC 11.48 10^3/uL (4.4-10.8)
[2024-01-15 17:00] LABS: Anion Gap 8.7 mmol/L (3-11); BUN 19 mg/dL (7-18); CO2 27.3 mmol/L (21.0-32.0); CREATININE 1.2 mg/dL (0.70-1.30); Calcium 9.2 mg/dL (8.5-10.1); Chloride 105 mmol/L (98-107); Estimated GFR 63.85 (mL/min/1.73m2); Glucose 275 mg/dL (74-106); Potassium 5.5 mmol/L (3.5-5.1); Sodium 141 mmol/L (136-145)
--- OUTSIDE RECORDS SUMMARY | 2024-01-15 17:02 | XMS_ITS | Summary of Care ---
Author Organization [facility] Address [address] [place] [address]- Encounter 12/20/23 - [facility] [address] [place] [address]- [phone] Discharge Disposition: 06H Home with Home Health Care Attending Physician: Naif BAL, Leonid Vila Admitting Physician: Naif BAL, Leonid Vila Referring Physician: Tawnya REILLY, Shin Fajardo Allergies, Adverse Reactions, Alerts Substance Criticality Severity Reaction Reaction Severity Status penicillin Active trimethoprim Active simvastatin Active sulfa drugs Active Onion Active levoFLOXacin Active Medications aspirin 81 mg oral tablet, chewable 81 mg, = 1 tab, Oral, Daily, 30 tab, 0 Refill(s) Start Date: 12/20/23 Status: Ordered cholecalciferol 50 mcg (2000 intl units) oral tablet 50 mcg = 1 tab, Tab, Oral, Daily, 0 Refill(s) Start Date: 12/20/23 Status: Ordered clopidogrel 75 mg oral tablet 75 mg, = 1 tab, Tab, Oral, Daily, 30 tab, 0 Refill(s) Start Date: 12/20/23 Status: Ordered cyanocobalamin 1000 mcg/mL injectable solution 1,000 mcg = 1 mL, Soln, Intramuscular, qMonth, 10 mL, 0 Refill(s), Monthly Start Date: 12/20/23 Status: Ordered diphenhydrAMINE 25 mg oral tablet 25 mg = 1 tab, Tab, Oral, QHS PRN, 0 Refill(s), Insomnia Start Date: 01/07/24 Status: Ordered DULoxetine 30 mg oral delayed release capsule 60 mg = 2 cap, Cap-DR, Oral, Daily, 0 Refill(s) Start Date: 01/07/24 Status: Ordered ezetimibe 10 mg oral tablet 10 mg = 1 tab, Tab, Oral, Daily, 30 tab, 0 Refill(s) Start Date: 12/20/23 Status: Ordered gabapentin 300 mg oral capsule 1,500 mg, = 5 cap, Cap, Oral, QHS, 30 cap, 0 Refill(s) Start Date: 12/20/23 Status: Ordered gabapentin 300 mg oral capsule 900 mg, = 3 cap, Cap, Oral, Daily, 0 Refill(s) Start Date: 12/20/23 Status: Ordered insulin glargine 100 units/mL subcutaneous solution 20 units = 0.2 mL, Indication Hyperglycemia, Injection-Insulin (soln), Subcutaneous, Start date 01/02/24 8:00:00 PM [employer] Start Date: 01/02/24 Stop Date: 01/02/24 Status: Completed Lantus 48 units = 0.48 mL, Indication Hyperglycemia, Injection-Insulin (soln), Subcutaneous, Start date 01/07/24 8:00:00 PM [employer] Start Date: 01/07/24 Stop Date: 01/07/24 Status: Completed Lantus 48 units = 0.48 mL, Indication Hyperglycemia, Injection-Insulin (soln), Subcutaneous, Start date 12/28/23 7:00:00 AM [employer] Start Date: 12/28/23 Stop Date: 12/28/23 Status: Completed Lantus Solostar Pen 100 units/mL subcutaneous solution 48 units, Injection-Insulin (soln), Subcutaneous, qAM, 0 Refill(s) Start Date: 12/20/23 Status: Ordered Lasix 20 mg oral tablet 20 mg = 1 tab, Tab, Oral, Daily, 0 Refill(s) Start Date: 01/07/24 Status: Ordered lidocaine 4% topical film 1 patch, Film, Transdermal, qAM, 0 Refill(s) Start Date: 01/01/24 Status: Ordered melatonin 3 mg oral tablet 15 mg = 5 tab, Tab, Oral, QHS, 0 Refill(s) Start Date: 01/07/24 Status: Ordered oxyCODONE 15 mg oral tablet 15 mg = 1 tab, Tab, Oral, q6hr PRN, 0 Refill(s), PAIN (Scale 7-10) Start Date: 12/20/23 Status: Ordered pantoprazole 40 mg oral delayed release tablet 40 mg = 1 tab, Tab-DR, Oral, Before breakfast, 30 tab, 0 Refill(s) Start Date: 12/20/23 Status: Ordered potassium chloride 10 mEq oral tablet, extended release 10 mEq = 1 tab, Tab-ER, Oral, Daily, 0 Refill(s) Start Date: 01/07/24 Status: Ordered rosuvastatin 20 mg oral tablet 20 mg, 1 tab, Tab, Oral, QHS, 30 tab, 0 Refill(s) Start Date: 12/20/23 Status: Ordered Problem List Condition Confirmation Course Effective Dates Status H ealth Status Informant At risk of venous thromboembolus 1 Confirmed 12/20/23 Active Below knee amputation, Left Confirmed Active DM - Diabetes mellitus Confirmed Active HLD - Hyperlipidemia Confirmed Active HTN - Hypertension Confirmed Active Infrarenal abdominal aortic aneurysm Confirmed Active Neuropathy Confirmed Active Right Forefoot amputation Confirmed Active 1Problem added by Discern Expert Rule: EBN_VTERISKPROB_3 Results Laboratory List Name Date Glucose, POC 01/09/24 Glucose, POC 01/08/24 Glucose, POC 01/08/24 Most recent to oldest [Reference Range]: 1 2 3 Creatinine Level 0.84 mg/dL (01/07/24 8:11 AM) 0.92 mg/dL (01/03/24 7:15 AM) 0.88 mg/dL (12/31/23 7:46 AM) eGFR CKD-EPI - CRD [>=60] >60 (01/07/24 8:11 AM) >60 (01/03/24 7:15 AM) >60 (12/31/23 7:46 AM) WBC Instrument - CRD [4.23-9.07 x10^3/mcL] 10.39 x10^3/mcL *HI* (01/07/24 8:11 AM) 12.29 x10^3/mcL *HI* (01/03/24 1:40 PM) 10.01 x10^3/mcL *HI* (12/31/23 7:46 AM) RDW-SD - CRD 43.9 (01/07/24 8:11 AM) 44.5 (01/03/24 1:40 PM) 44.8 (12/31/23 7:46 AM) Positive Count - CRD Abnormal *ABN* (01/03/24 1:40 PM) Abnormal *ABN* (12/31/23 7:46 AM) Abnormal *ABN* (12/24/23 8:05 AM) Creatinine - UN 0.84 mg/dL (01/07/24 8:11 AM) Estimated Creatinine Clearance 74.00 mL/min 1 (01/07/24 8:11 AM) 74.00 mL/min 2 (01/03/24 7:15 AM) 74.00 mL/min 3 (12/31/23 7:46 AM) Glucose POC RALS [70-180 mg/dL] 145 mg/dL (01/09/24 7:16 AM) 251 mg/dL *HI* (01/08/24 8:43 PM) 161 mg/dL (01/08/24 5:27 PM) WBC - CRD [4.23-9.07 x10^3/mcL] 10.39 x10^3/mcL *HI* (01/07/24 8:11 AM) 12.29 x10^3/mcL *HI* (01/03/24 1:40 PM) 10.01 x10^3/mcL *HI* (12/31/23 7:46 AM) RBC - CRD [4.00-5.74 x10^6/mcL] 4.71 x10^6/mcL (01/07/24 8:11 AM) 4.60 x10^6/mcL (01/03/24 1:40 PM) 4.97 x10^6/mcL (12/31/23 7:46 AM) MCV - CRD [82.1-98.2 fL] 89.4 fL (01/07/24 8:11 AM) 90.9 fL (01/03/24 1:40 PM) 91.1 fL (12/31/23 7:46 AM) MCH - CRD [25.7-32.2 pg] 28.9 pg (01/07/24 8:11 AM) 29.1 pg (01/03/24 1:40 PM) 28.8 pg (12/31/23 7:46 AM) MCHC - CRD [32.3-36.5 G/DL] 32.3 G/DL (01/07/24 8:11 AM) 32.1 G/DL *LOW* (01/03/24 1:40 PM) 31.6 G/DL *LOW* (12/31/23 7:46 AM) RDW - CRD [11.6-14.4 %] 13.4 % (01/07/24 8:11 AM) 13.5 % (01/03/24 1:40 PM) 13.5 % (12/31/23 7:46 AM) Platelets - CRD [154-333 x10^3/mcL] 941 x10^3/mcL *HI* (01/07/24 8:11 AM) 984 x10^3/mcL *HI* (01/03/24 1:40 PM) 1013 x10^3/mcL *CRIT* (12/31/23 7:46 AM) Platelet Estimate - CRD >=36 (12/24/23 8:05 AM) Agrees (12/24/23 8:05 AM) Agrees (12/24/23 8:05 AM) NRBC - CRD 0.0 (01/07/24 8:11 AM) 0.0 (01/03/24 1:40 PM) 0.0 (12/31/23 7:46 AM) Sodium - CRD [136-143 mmol/L] 140 mmol/L (01/07/24 8:11 AM) 142 mmol/L (01/03/24 7:15 AM) 143 mmol/L (12/31/23 7:46 AM) Potassium - CRD [3.5-5.1 mmol/L] 3.7 mmol/L (01/07/24 8:11 AM) 4.4 mmol/L (01/03/24 7:15 AM) 4.1 mmol/L (12/31/23 7:46 AM) Chloride - CRD [101-111 mmol/L] 106 mmol/L (01/07/24 8:11 AM) 109 mmol/L (01/03/24 7:15 AM) 110 mmol/L (12/31/23 7:46 AM) Carbon Dioxide - CRD [21-32 mmol/L] 28 mmol/L (01/07/24 8:11 AM) 26 mmol/L (01/03/24 7:15 AM) 28 mmol/L (12/31/23 7:46 AM) BUN - CRD [6-26 mg/dL] 18 mg/dL (01/07/24 8:11 AM) 17 mg/dL (01/03/24 7:15 AM) 15 mg/dL (12/31/23 7:46 AM) BUN/Creat Ratio - CRD 21.4 (01/07/24 8:11 AM) 18.5 (01/03/24 7:15 AM) 17.0 (12/31/23 7:46 AM) Creatinine, Enzymatic - CRD [0.67-1.17 mg/dL] 0.84 mg/dL (01/07/24 8:11 AM) 0.92 mg/dL (01/03/24 7:15 AM) 0.88 mg/dL (12/31/23 7:46 AM) Glucose - CRD [70-99 mg/dL] 125 mg/dL 4 *HI* (01/07/24 8:11 AM) 177 mg/dL 5 *HI* (01/03/24 7:15 AM) 153 mg/dL 6 *HI* (12/31/23 7:46 AM) Calcium - CRD [8.3-10.1 mg/dL] 9.3 mg/dL (01/07/24 8:11 AM) 9.4 mg/dL (01/03/24 7:15 AM) 10.0 mg/dL (12/31/23 7:46 AM) Alkaline Phosphatase - CRD [45-117 units/L] 66 units/L (01/07/24 8:11 AM) 56 units/L (01/03/24 7:15 AM) 66 units/L (12/31/23 7:46 AM) ALT - CRD [12-78 units/L] 23 units/L (01/07/24 8:11 AM) 28 units/L (01/03/24 7:15 AM) 34 units/L (12/31/23 7:46 AM) AST - CRD [5-32 units/L] 20 units/L (01/07/24 8:11 AM) 20 units/L (01/03/24 7:15 AM) 24 units/L (12/31/23 7:46 AM) Bilirubin, Total - CRD [0.2-1.0 mg/dL] 0.4 mg/dL (01/07/24 8:11 AM) 0.5 mg/dL (01/03/24 7:15 AM) 0.5 mg/dL (12/31/23 7:46 AM) Total Protein - CRD [6.5-8.4 G/DL] 6.9 G/DL (01/07/24 8:11 AM) 6.7 G/DL (01/03/24 7:15 AM) 7.4 G/DL (12/31/23 7:46 AM) Albumin - CRD [3.4-4.9 G/DL] 3.1 G/DL *LOW* (01/07/24 8:11 AM) 3.3 G/DL *LOW* (01/03/24 7:15 AM) 3.7 G/DL (12/31/23 7:46 AM) Globulin - CRD [2.7-4.7 G/DL] 3.8 G/DL (01/07/24 8:11 AM) 3.4 G/DL (01/03/24 7:15 AM) 3.7 G/DL (12/31/23 7:46 AM) Albumin/Globulin Ratio - CRD [0.9-2.3] 0.8 *LOW* (01/07/24 8:11 AM) 1.0 (01/03/24 7:15 AM) 1.0 (12/31/23 7:46 AM) Anion Gap - CRD [2.0-11.0] 6.0 (01/07/24 8:11 AM) 7.0 (01/03/24 7:15 AM) 5.0 (12/31/23 7:46 AM) Hematocrit - CRD [37.1-50.6 %] 42.1 % (01/07/24 8:11 AM) 41.8 % (01/03/24 1:40 PM) 45.3 % (12/31/23 7:46 AM) Hemoglobin - CRD [12.6-17.1 G/DL] 13.6 G/DL (01/07/24 8:11 AM) 13.4 G/DL (01/03/24 1:40 PM) 14.3 G/DL (12/31/23 7:46 AM) Auto Neutrophil - CRD 69.2 % (01/07/24 8:11 AM) 69.9 % (01/03/24 1:40 PM) 67.9 % (12/31/23 7:46 AM) Auto Lymphocyte - CRD 16.4 % (01/07/24 8:11 AM) 17.0 % (01/03/24 1:40 PM) 18.4 % (12/31/23 7:46 AM) Auto Monocyte - CRD 7.5 % (01/07/24 8:11 AM) 6.0 % (01/03/24 1:40 PM) 6.7 % (12/31/23 7:46 AM) Auto Eos - CRD 4.9 % (01/07/24 8:11 AM) 5.2 % (01/03/24 1:40 PM) 4.6 % (12/31/23 7:46 AM) Auto Basophil - CRD 1.6 % (01/07/24 8:11 AM) 1.5 % (01/03/24 1:40 PM) 2.1 % (12/31/23 7:46 AM) Imm Granulocyte - CRD 0.4 % (01/07/24 8:11 AM) 0.4 % (01/03/24 1:40 PM) 0.3 % (12/31/23 7:46 AM) Abs Imm Granulocyte - CRD [<=0.05 x10^3/mcL] 0.04 x10^3/mcL (01/07/24 8:11 AM) 0.05 x10^3/mcL (01/03/24 1:40 PM) 0.03 x10^3/mcL (12/31/23 7:46 AM) Abs Lymphocyte - CRD [0.73-2.76 x10^3/mcL] 1.70 x10^3/mcL (01/07/24 8:11 AM) 2.09 x10^3/mcL (01/03/24 1:40 PM) 1.84 x10^3/mcL (12/31/23 7:46 AM) Abs Monocyte - CRD [0.30-0.82 x10^3/mcL] 0.78 x10^3/mcL (01/07/24 8:11 AM) 0.74 x10^3/mcL (01/03/24 1:40 PM) 0.67 x10^3/mcL (12/31/23 7:46 AM) Abs Eosinophil - CRD [0.04-0.54 x10^3/mcL] 0.51 x10^3/mcL (01/07/24 8:11 AM) 0.64 x10^3/mcL *HI* (01/03/24 1:40 PM) 0.46 x10^3/mcL (12/31/23 7:46 AM) Abs Basophil - CRD [<=0.08 x10^3/mcL] 0.17 x10^3/mcL *HI* (01/07/24 8:11 AM) 0.19 x10^3/mcL *HI* (01/03/24 1:40 PM) 0.21 x10^3/mcL *HI* (12/31/23 7:46 AM) Absolute NRBC - CRD [<=0.01 x10^3/mcL] 0.00 x10^3/mcL (01/07/24 8:11 AM) 0.00 x10^3/mcL (01/03/24 1:40 PM) 0.00 x10^3/mcL (12/31/23 7:46 AM) MPV - CRD [8.97-11.96 fL] 10.20 fL (01/07/24 8:11 AM) 10.70 fL (01/03/24 1:40 PM) 10.60 fL (12/31/23 7:46 AM) Abs Neut - CRD [1.78-5.38 x10^3/mcL] 7.19 x10^3/mcL *HI* (01/07/24 8:11 AM) 8.58 x10^3/mcL *HI* (01/03/24 1:40 PM) 6.80 x10^3/mcL *HI* (12/31/23 7:46 AM) Blood Glucose, Capillary [70-180 mg/dL] 269 mg/dL *HI* (01/07/24 9:15 PM) 213 mg/dL *HI* (01/02/24 9:24 PM) 141 mg/dL (12/28/23 8:45 AM) 1Result Comment: Calculated using method: Cockcroft-Gault (default) Calculated using Formula : (140-ageInYears)*IBW/(72) Age: 73 (86134665390.0) Serum Creatinine: 0.84 mg/dL (15511185687.0) Height: 185 cm (58968149234.0) Weight: 115.9 kg (IBW = 79.520 kg) 2Result Comment: Calculated using method: Cockcroft-Gault (default) Calculated using Formula : (140-ageInYears)*IBW/(72) Age: 73 (18234541157.0) Serum Creatinine: 0.92 mg/dL (03871385991.0) Height: 185 cm (66063440533.0) Weight: 115.9 kg (IBW = 79.520 kg) 3Result Comment: Calculated using method: Cockcroft-Gault (default) Calculated using Formula : (140-ageInYears)*IBW/(72) Age: 73 (60802453164.0) Serum Creatinine: 0.88 mg/dL (33947548340.0) Height: 185 cm (27595974646.0) Weight: 115.9 kg (IBW = 79.520 kg) 4Result Comment: Impairment: Fasting glucose 100-125 mg/dL Diabetes Mellitus: Fasting glucose >=126 mg/dL Random glucose >=200 mg/dL 5Result Comment: Impairment: Fasting glucose 100-125 mg/dL Diabetes Mellitus: Fasting glucose >=126 mg/dL Random glucose >=200 mg/dL 6Result Comment: Impairment: Fasting glucose 100-125 mg/dL Diabetes Mellitus: Fasting glucose >=126 mg/dL Random glucose >=200 mg/dL Vital Signs Most recent to oldest [Reference Range]: 1 2 3 Temperature Oral F [96.4-99.1 DegF] 98 DegF (01/09/24 8:37 AM) 98.2 DegF (01/08/24 7:08 PM) 98 DegF (01/08/24 3:59 PM) Peripheral Pulse Rate [60-100 bpm] 73 bpm (01/09/24 8:37 AM) 69 bpm (01/08/24 7:09 PM) 60 bpm (01/08/24 3:59 PM) Respiratory Rate [14-20 br/min] 17 br/min (01/08/24 7:08 PM) 17 br/min (01/08/24 3:59 PM) 18 br/min (01/07/24 7:34 PM) Blood Pressure [90-140/60-90 mmHg] 107/64mmHg (01/09/24 8:36 AM) 129/71mmHg (01/08/24 7:08 PM) 110/76mmHg (01/08/24 3:59 PM) Mean Arterial Pressure, Cuff 78 mmHg (01/09/24 8:36 AM) 90 mmHg (01/08/24 7:08 PM) 87 mmHg (01/08/24 3:59 PM) Extremity used to obtain blood pressure Right Arm (01/06/24 8:55 PM) Left Arm (01/05/24 7:46 PM) Right Arm (01/04/24 7:19 PM) Cuff Size. Large (01/06/24 8:55 PM) Medium (01/05/24 7:46 PM) Large (01/04/24 7:19 PM) Respiratory Rate with Activity [14-20 br/min] 18 br/min (12/22/23 7:00 PM) Temperature Oral 36.0 DegC 1 (01/09/24 8:37 AM) 36.8 DegC 2 (01/08/24 7:08 PM) Temperature Oral [35.8-37.3 DegC] 36.7 DegC (01/08/24 3:59 PM) 1Result Comment: Charted by SYSTEM secondary to charting of Temperature Oral F on a Vitals Monitor. Rule: VITALSLINK_CALCULATIONS_2 2Result Comment: Charted by SYSTEM secondary to charting of Temperature Oral F on a Vitals Monitor. Rule: VITALSLINK_CALCULATIONS_2
--- OUTSIDE RECORDS SUMMARY | 2024-01-15 17:03 | XMS_ITS | Encounter Summary ---
Author Organization [facility] [place] [address] Care Team Providers Care Manager Ems Name Role Phone Remberto Bernabe DO Primary Care Provider Encounter Details Date Type Department Care Team (Late st Contact Info) Description 12/19/2023 11:15 PM EDT Telehealth [place] [address] Telehealth, Neurology None Social History Tobacco Use Types Packs/Day Years Used Date Smoking Tobacco: Former Smokeless Tobacco: Never Sex and Gender Information Value Date Recorded Sex Assigned at Not on file Gender Identity Not on file Sexual Orientation Not on file documented as of this encounter Plan of Treatment Not on file documented as of this encounter Visit Diagnoses Not on filedocumented in this encounter Care Teams Manager Ems Relationship Specialty Start Date End Date Remberto Bernabe DO [facility] [address] [place] [address] PCP - General 01/10/10 documented as of this encounter
--- OUTSIDE RECORDS SUMMARY | 2024-01-15 17:03 | XMS_ITS | Encounter Summary ---
Author Organization [facility] [place] [address] Care Team Providers Care [employer] Nut [employer] Worker Name Role Phone Remberto Bernabe DO Primary Care Provider [phone] Encounter Details Date Type Department Care Team (Late st Contact Info) Description 12/19/2023 5:35 PM EDT Telehealth [place] [address] Telehealth, Neurology None Social History Tobacco Use [...] on filedocumented in this encounter Care Teams [employer] Worker Relationship Specialty Start Date End Date Remberto Bernabe DO [facility] [address] [place] [address] PCP - General 01/10/10 documented as of this encounter
--- OUTSIDE RECORDS SUMMARY | 2024-01-15 17:03 | XMS_ITS | Continuity of Care Document ---
Author Organization [facility] Address [address] [place] [address] Care Team Providers Care Hardwood Floor Layer Name Role Phone LILLI PACKER Primary Care Provider ESPERANZA DOWLING Drywall Finisher Foreman [facility] OFFICE Ophthalmol ogist [facility] DENTAL [facility] Dentist Assessment No assessment recorded. Plan of Treatment Reminders Order Date Submit Date Provider Last Modified By Organization Details Last Modified Time Details Appointments Follow Up 30 2024 01:00P M LILLI PACKER Not available Not available Not available Lab hemoglobi n A1C, fingersti ck 2023 024 pat [facility], [address] [place] [address], [phone], 11/29/2023 15:23:04 Referral None recorded. Procedures None recorded. Surgeries None recorded. Imaging None recorded. Medication Orders oxycodone 15 mg tablet 2023 024 [facility] [address] [place], [address], 11/29/2023 15:26:08 Patient TargetsNo targets recorded. Patient Instructions Encounter Date Encounter Id Patient Instructions Last Modified By Organization Details Last Modified Time 11/29/2023 [id number] Continue to decrease the tresiba by 5 units at a time (tonight decrease to 50 units). Goal BS in the AM 70-120. [email or web address] Not available 12/02/2023 14:25:56 Reason for Referral None Reported. Results Created Date Observation Date Name Description Value Unit Range Abnormal Flag Note LastModifiedBy Organization Detail LastModifiedTime 11/29/19 24 11/29/2023 hemog lobin A1C, evangelista bruce k hemoglobin A1C 6.1 % <5.7 Not Available [facility] [address] [facility]], [place], [address], 11/25/2023 09:22:49 11/04/19 24 05/03/2020 XR, shoul alma rosa No observ ation record ed. [email or web address] Not Available 11/03 00:18:24 11/04/19 24 05/06/2019 imagi ng/di agnos tic resul t No observ ation record ed. [email or web address] Not Available 11/03 00:18:26 11/04/19 24 04/17/2019 imagi ng/di agnos tic resul t No observ ation record ed. [email or web address] Not Available 11/03 00:18:27 11/04/19 24 05/20/2018 imagi ng/di agnos tic resul t No observ ation record ed. [email or web address] Not Available 11/03 00:18:52 11/04/19 24 06/30/2019 imagi ng/di agnos tic resul t No observ ation record ed. [email or web address] Not Available 11/03 00:18:53 11/04/19 24 08/26/2019 imagi ng/di agnos tic resul t No observ ation record ed. [email or web address] Not Available 11/03 00:20:10 12/18/19 24 12/18/2023 CT imagi ng repor t Patien t Name: Radha Galeano Unit #: [id number] Loc: ER Orderi ng Provid er: Nick Yo M.D. Accashley t #: [id number] Status : REG ER Primar y Care Provid er: Maria Ines Wan M.D. Date of Exam : Sex: M : 1950 Age: 73 Exam(s ) a CT:CT brain neck CTA Exam(s ) CT BRAIN NECK CTA EXAM: CT BRAIN NECK CTA CLINIC AL HISTOR Y: cva, left defici t. TECHNI QUE: Imagin g Protoc ol: Axial CT angiog savanna was perfor med with multi- slice acquis ition and multi- planar and/or 3D recons tructi ons. CONTRA ST MATERI AL: Intrav enous: Omnipa que [address] volume :struc tured data in ml COMPAR KANNAN: No exams were availa ble for compar kannan FINDIN GS: CTA Neck W: Aortic arch anatom y: The aortic arch anatom y is conven tional and there is no signif icant stenos is at the origin of the great vessel s off of the aortic arch. No intima l flap eviden t. Anteri or circul ation: Both common caroti d arteri es ascend with normal lumina l diamet ers. There is both calcif ied and noncal cified plaque at the caroti d bifurc ations and proxim al advisory intern al caroti d arteri es bilate rally. The amount of stenos is is estima cong at approx imatel y 50 percen t on the right side in 40 percen t on the left side. High slight ly higher up in the left advisory intern al caroti d artery approx imatel y 1.5 cm above the bifurc ation there is also some eccent phan latera l wall plaque with approx imatel y 50 percen t narrow ing at this level. Above this level both advisory intern al caroti d arteri es are somewh at tortuo us in the upper neck. There noted to be patent in the skull base-c arotid canals . Supervisor Boat Outfitting ior circul ation: Both verteb ral arteri es origin ate off of the subcla vian arteri es with some calcif ied plaque at their origin s. Both verteb ral arteri es ascend with normal and approx imatel y equal lumina l diamet ers in the forame n transv ersari um, both exhibi ting lumina l diamet ers of 3.5 mm no intral uminal thromb us nor dissec tion of the verteb ral arteri es eviden t. Both verteb ral arteri es contri bute to the format ion of the basila r artery at the skull base. CTA Brain W: Anteri or circul ation: Both advisory intern al caroti d arteri es are patent in the skull base-c arotid canals as well as within the cavern ous sinuse s. The mcmahon of the intra cavern ous advisory intern al caroti d arteri es are periph erally calcif ied but there does not appear to be a critic al stenos is in these vessel s and both ophtha lmic arteri es are opacif ied, coming off of the intra cavern ous ICAs. The suprac linoid aspect s of the ICAs are patent . Both A1 segmen ts are patent as are the anteri or cerebr al arteri es and there is no eviden ce of aneury sm at the level of the anteri or commun icatin g artery . Both middle cerebr al arteri es are patent with no eviden ce of signif icant stenos is nor intral uminal thromb us. There also no aneury sms of these vessel s. Supervisor Boat Outfitting ior circul ation: Basila r artery is formed by both verteb ral arteri es at the skull base and ascend s with normal lumina l diamet er. Distal ly it gives off superi or cerebe llar arteri es and above this level termin ates as patent bilate ral extra hand ior cerebr al arteri es. Above this level the basila r artery termin ates as patent bilate ral extra hand ior cerebr al arteri es. There is no eviden ce of aneury sm at the tip of the basila r artery nor elsewh ere in the inaja -of-Wi llis. CT BRAIN: There is no eviden ce of intrac ranial hemorr leana, mass effect , or shift of midlin e struct ures. There are no extra- axial fluid collec tions. Ventri cles are not enlarg ed or shifte d. There are no ring enhanc ing lesion s in the brain and no abnorm al mening eal enhanc ement. IMPRES HUNTER: 1. There is signif icant calcif ied and noncal cified plaque at the level the caroti d bifurc ations and proxim al ICAs bilate rally. There is approx imatel y 50 percen t stenos is on the right side and 40 percen t stenos is on the left side at these levels . Recomm end follow -up Dopple r imagin g to determ ine veloci ties. 2. Patent verteb ral arteri es. No signif icant athero sclero tic narrow ing. No dissec tion eviden t. 3. Patent intrac ranial arteri es. 4. No obviou s acute intrac ranial findin gs. No ring enhanc ing lesion s no abnorm al mening eal enhanc ement. If clinic ally indica cong follow -up MRI can be perfor med Report called by myself to ER physic lyndsay 2023 at 3:18 p.m. RADIAT ION DOSE DELIVE RED: 2,181. 74mGy. cm Total DLP DATA REPOSI TORY: All CT scans at this facili ty are submit cong to the [facility] Radiol ogy Data Regist ry (NRDR) Dose Index Regist ry (DIR) with the [place] of Radiol ogy (ACR). RADIAT ION OPTIMI ZATION : All CT scans at this facili ty use at least one of these dose optimi zation techni ques: automa cong exposu re contro l; mA and/or kV adjust ment per patien t size (inclu pawan target ed exams where dose is matche d to clinic al indica tion); or iterat ju recons tructi on. 1030-0 017: Total DLP = 0.00 mGy-cm Ordere d By: Nick Yo M.D. CC: ------ ------ ------ ------ ------ ------ ------ ------ ------ ------ ------ ------ ---- Dictat ed By: Italo Craft M.D. 1520 1520 Transc ribed By: Venancio BAL,Jaden angelo 1520 This is privil eged, confid ential inform ation intend ed only for the provid er named. Any use or distri bution by any person other than this provid er is strict ly prohib ited. If you receiv e this report in error, please notify us immedi ately at and return the origin al report to us at the addres s above. Thank- you. INTERFACE [facility] [address], [place], [address] 12/18/2023 15:24:09 12/19/19 24 12/19/2023 ultra sound imagi ng repor t Patien t Name: Radha Galeano Unit #: [id number] Loc: MS Ji ng Provid er: MaloShoshana bailey APRN Accoun t #: [id number] 02 Status : ADM IN Primar y Care Provid er: Maria Ines Wan M.D. Date of Exam : Sex: M Admiss ion Date: : 1950 Age: 73 ------ ------ --- APPROV ED REPORT ------ ------ -- EXAM: Compre hensiv e 2D, Dopple r, and color- flow Echoca rdiogr am Robertaen t Locati on: In-Pat ient Room/B ed: 225 Sonogr apher: Maribellmindi Kuhn , RDCS (AE) Indica tions: CVA Echo Enhanc ing Agent Indica tion: Rule out Shunt Agent( s) / Amount (s) Used: Agitat ed Saline 30.0 cc Commen ts: Contra st study was perfor med with 3 IV inject ions of 10ccs of agitat ed normal saline , at rest, with cough and post valsal va maneuv er. Other Inform ation Study Qualit y: Fair. Techni sonia limite d study due to body habitu s, inabil ity to positi on patien t exam was done supine bedsid e. Conclu hunter Techni sonia limite d study Left ventri cular wall thickn ess chambe r size and systol ic functi on appear within the range of normal Normal right ventri cular functi on and size Both atria are normal in size Aortic valve is trilea flet and mildly sclero tic Mild mitral annula r calcif icatio n Study is techni sonia inadeq uate to determ ine if any intrac ardiac shunti ng was presen t Wall motion Left Ventri gregorio The overal l left ventri cular systol ic functi on appear s normal . Limite d follow up exam. LVEF is 54%. Atria Saline bubble contra st intrav enous inject ion is inconc lusive due to non visual izatio n of saline .. Auto EF LV EDV A4C 132.7 mL LV EDV A2C 119.8 mL LV EDV BP 126.5 mL LV ESV A4C 61.3 mL LV ESV A2C 54.6 mL LV ESV BP 58.1 mL LVEF(% ) A4C 53.8 % LVEF(% ) A2C 54.4 % LVEF(% ) BP 54.0 % LV SV A4C 71.4 ml LV SV A2C 65.2 ml LV SV BP 68.3 ml LV CO A4C 4.0 L/min LV CO A2C 3.9 L/min LV CO BP 4.0 L/min HR A4C 56.16 BPM HR A2C 60.28 BPM LV EDV Index (BP) Ordere d By: Shoshana Chang APRN CC: ------ ------ ------ ------ ------ ------ ------ ------ ------ ------ ------ ------ - Dictat ed By: Melba Cordoba M.D. 1044 104 Transc ribed By: Melba Cordoba MD 104 This is privil eged, confid ential inform ation intend ed only for the provid er named. Any use or distri bution by any person other than this provid er is strict ly prohib ited. If you receiv e this report in error, please notify us immedi ately at and return the origin al report to us at the addres s above. Thank- you. INTERFACE [address] [place], [address] 12/19/2023 10:51:18 12/19/1912/19/2023 ultra sound imagi ng repor t Patien t Name: Radha Galeano Unit #: [id number] Loc: MS Orderi ng Provid er: Shoshana Chang APRN t #: [id number] 02 Status : ADM IN Primar y Care Provid er: Maria Ines Wan M.D. Date of Exam : Sex: M Admiss ion Date: : 1950 Age: 73 Exam(s ) US CAROTI D EXAM: US CAROTI D CLINIC AL HISTOR Y: 50% R/ 40% L stenos is:rachel ocitie s?. TECHNI QUE: Ultras ound caroti ds perfor med using graysc skye, color- flow, and spectr al Dopple r imagin g. COMPAR KANNAN: CT CT BRAIN NECK CTA from 2023 FINDIN GS: RIGHT CAROTI D ARTERY : Plaque : Mixed calcif ic and noncal cific plaque at the common caroti d bulb and proxim al advisory intern al caroti d artery . Veloci ty elevat ion: Mildly elevat ed systol ic veloci ty, less than 50 percen t stenos is. LEFT CAROTI D ARTERY : Plaque : None modera te calcif ied and noncal cified plaque at the common caroti d bulb and proxim al to mid advisory intern al caroti d artery . Veloci ty elevat ion: Veloci ty elevat ions in the proxim al and mid common caroti d artery consis tent with 50-69 percen t stenos is. VERTEB RAL ARTERI ES: Antegr eloy flow. Measur ements : R Bulb: 82.3cm /s PS / 15.6cm /s ED R CCA: 85.4cm /s PS / 15.4cm /s ED R ECA: 167.2c m/s PS / 12.6cm /s ED R ICA Prox: 129.9c m/s PS / 31.9cm /s ED R ICA Mid: 101.2c m/s PS / 22.8cm /s ED R ICA Distal : 61.3cm /s PS /17.7c m/s ED R Vert: 58.8cm /s PS / 14.6cm /s ED R SVR: 1.5 R DVR: 2.1 L Bulb: 89.3cm /s PS / 29.3cm /s ED L CCA: 80.2cm /s PS / 11.5cm /s ED L ECA: 107.4c m/s PS / 8.7cm/ s ED L ICA Prox: 263.6c m/s PS / 75.5cm /s ED L ICA Mid: 172.4c m/s PS / 23cm/s ED L ICA Distal : 85cm/s PS / 23.4cm /s ED L Vert: 71.9cm /s PS / 16.6cm /s ED L SVR: 3.3 L DVR: 6.5 IMPRES HUNTER: Multip le focal mixed plaque in both common caroti d bulbs and proxim al to mid advisory intern al caroti d arteri es. Veloci ty elevat ions on the right consis tent with less than 50 percen t stenos is. Veloci ty elevat ions on the left consis tent with 50-69 percen t stenos is proxim al left advisory intern al caroti d artery . Criter ia for Caroti d Stenos is: Normal : ICA PSV <125 cm/s no plaque or intima l thicke rosey is visibl e. <50 % stenos is: ICA PSV <125 cm/s and plaque or intima l thicke rosey is visibl e. 50-69% stenos is: ICA PSV is 125-25 0 cm/s and plaque is visibl e. >70% stenos is to near occlus ion: ICA PSV >250 cm/s with visibl e plaque and lumina l narrow ing. DATA REPOSI TORY: Cristhian d By: Shoshana Chang APRN CC: ------ ------ ------ ------ ------ ------ ------ ------ ------ ------ ------ ------ - Dictat ed By: Jerry Del Real 1144 Transc ribed By: Sharon Agustin 1144 This is privil eged, confid ential inform ation intend ed only for the provid er named. Any use or distri bution by any person other than this provid er is strict ly prohib ited. If you receiv e this report in error, please notify us immedclyde hamilton at and return the origin al report to us at the addres s above. Thank- you. INTERFACE [facility] [address] [place], [address] 12/19/2023 11:50:30 12/19/1912/19/2023 MRI imagi ng repor t Patien t Name: Radha Galeano Unit #: [id number] Loc: MS Orderi ng Provid er: MaloShoshana bailey CONCRETE FINISHER Accoun t #: [id number] 02 Status : ADM IN Primar y Care Provid er: Maria Ines Wan M.D. Date of Exam : Sex: M Admiss ion Date: : 1950 Age: 73 Exam(s ) MR BRAIN WO EXAM: MR BRAIN WO CLINIC AL HISTOR Y: CVA TECHNI QUE: Multip lanar multis equenc e MRI of the brain was perfor med. COMPAR KANNAN: CT CT BRAIN NECK CTA from 2023 FINDIN GS: Exam limite d by patien t motion . VENTRI CLES AND EXTRA AXIAL SPACES : Normal in size and morpho logy for the patien t's age. MIDLIN E SHIFT: None. CEREBR AL PARENC HYMA: No focus of restri cted diffus ion to sugges t acute infarc t. No space- occupy ing lesion identi fied. Mild atroph y consis tent with the patien t's age. Mild scatte red foci of high signal in the white matter consis tent with sequel a of chroni c microv ascula r diseas e. BRAINS TEM/CE REBELL UM: Abnorm al area of restri cted diffus ion on the right side of landon consis tent with acute to subacu te infarc t. High signal faintl y visibl e on T2 and FLAIR images . VISUAL IZED PARANA L[place]ON SINUSE S: Clear. MASTOI DS:Min imal scatte red fluid. Vascul ature: Normal flow void. PITUIT VANCE GLAND: Unrema rkable . ORBITS : Unrema rkable . IMPRES HUNTER: Small area of restri cted diffus ion in the right side of the landon consis tent with acute or subacu te infarc t. DATA REPOSI TORY: Cristhian d By: Shoshana Chang APRN CC: ------ ------ ------ ------ ------ ------ ------ ------ ------ ------ ------ ------ - Dictat ed By: Jerry Del Real 1158 Transc ribed By: Sharon Agustin 1158 This is privil eged, confid ential inform ation intend ed only for the provid er named. Any use or distri bution by any person other than this provid er is strict ly prohib ited. If you receiv e this report in error, please notify us immedi ately at and return the origin al report to us at the addres s above. Thank- you. INTERFACE [facility] [address], [place], [address] 12/19/2023 12:03:33 12/19/19 24 12/19/2023 CT imagi ng repor t Patiestefany t Name: Radha Galeano Unit #: [id number] Loc: MS Margy rahman Provid er: Shoshana Chang APRN Accoun t #: [id number] 02 Status : ADM IN Primar y Care Provid er: Maria Ines Wan M.D. Date of Exam : Sex: M : 1950 Age: 73 Exam(s ) a CT:CT head wo Exam(s ) CT HEAD WO EXAM: CT HEAD WO CLINIC AL HISTOR Y: worsen ing CVA sympto ms. TECHNI QUE: Imagin g Protoc ol: Axial comput ed tomogr aphy images with velazuqez l and sagitt al reform atted images were create d and review ed COMPAR KANNAN: CT CT BRAIN NECK CTA from 2023 MR MR BRAIN WO from 2023 FINDIN GS: There are no skull fractu res. There is no fluid in the visual ized parana london sinuse s. There is no eviden ce of intrac ranial hemorr leana, mass effect , or shift of midlin e struct ures. There are no extra- axial fluid collec tions. The ventri cles are not enlarg ed or shifte d and there is no blood within the ventri cular system nor within the basal cister ns. IMPRES HUNTER: No acute intrac ranial findin gs on this noninf used CT scan of the brain. Jadeneve r, please note that MRI scan perfor med today reveal s signif icant restri cted diffus ion in the right- side of the landon indica ting an acute infarc t at this level. There is no hemorr leana on CT scan at this level nor elsewh ere in the brain. RADIAT ION DOSE DELIVE RED: 919.5m Gy.cm Total DLP DATA REPOSI TORY: All CT scans at this facili ty are submit cong to the Nation al Radiol ogy Data Regist ry (NRDR) Dose Index Regist ry (DIR) with the [place] [employer] of Radiol ogy (ACR). RADIAT ION OPTIMI ZATION : All CT scans at this facili ty use at least one of these dose optimi zation techni ques: automa cong exposu re contro l; mA and/or kV adjust ment per patien t size (inclu pawan target ed exams where dose is matche d to clinic al indica tion); or iterat ju recons tructi on. 1031-0 021: Total DLP = 0.00 mGy-cm Ordere d By: Shoshana Chang APRN CC: ------ ------ ------ ------ ------ ------ ------ ------ ------ ------ ------ ------ ---- Dictat ed By: Italo Craft M.D. 1650 Transc ribed By: Venancio BAL,Jaden petey 1650 This is privil eged, confid ential inform ation intend ed only for the provid er named. Any use or distri bution by any person other than this provid er is strict ly prohib ited. If you receiv e this report in error, please notify us immedi ately at and return the origin al report to us at the addres s above. Thank- you. INTERFACE [facility] [address], [place], [address] 12/19/2023 16:56:31 12/20/19 24 12/20/2023 x-ray imagi ng repor t Patiestefany t Name: Radha Galeano lyn Castellanos Unit #: [id number] Loc: MS Margy rahman Provid er: Bernardo Shoshanadavion TRACEY Accoun t #: [id number] 02 Status : ADM IN Primar y Care Provid er: Maria Ines Wan M.D. Date of Exam : Sex: M Admiss ion Date: : 1950 Age: 73 Exam(s ) RF MODIFI ED SPEECH BA SWALLO W EXAM: RF MODIFI ED SPEECH BA SWALLO W CLINIC AL HISTOR Y: Speech pathol ogy therap y for dyspha reinaldo work-u p TECHNI QUE: Modifi ed barium swallo w was perfor med in conjun ction with speech pathol ogy. CONTRA ST MATERI AL: Multip le consis tencie s of oral barium contra st were admini stered . COMPAR KANNAN: No exams were availa ble for compar kannan FINDIN GS: Note that this is not a dedica cong esopha gram, distal esopha kenneth not evalua cong. There is no eviden ce of aspira tion with any consis tency. Flash laryng eal penetr ation noted with thin liquid . No signif icant residu e in the vallec shad. IMPRES HUNTER: Flash penetr ation with thin liquid . Speech pathol ogy report to follow . RADIAT ION DOSE DELIVE RED: Ka,r=2 1.6 mGy Ordere d By: Shoshana Chang APRN CC: ------ ------ ------ ------ ------ ------ ------ ------ ------ ------ ------ ------ - Dictat ed By: Jerry Del Real 1345 1345 Transc ribed By: Sharon Agustin 1345 This is privil eged, confid ential inform ation intend ed only for the provid er named. Any use or distri bution by any person other than this provid er is strict ly prohib ited. If you receiv e this report in error, please notify us immedi clarely at and return the origin al report to us at the addres s above. Thank- you. INTERFACE [facility] [address], [place], [address] 12/20/2023 13:58:05 Result Notes None recorded. Problems Name Problem SNOMED Code Status Onset Date Resolution Date Notes Provider Name and Address Organization Details Recorded Time Nicotine dependen ce 97334293 Completed 201006/12/2023 11/01/19 17 - Comments only - Lilli Packer MD - continui ng to have a cigar once in awhile - know this increase d his CAD risk Problem Code: Z87.891; Problem Code Type: ICD-10; Removal Reason: Has been nicotine free since 2019 Skinny Reza MA [facility], [place] - [facility] 4 14:57:43 Amputate d below knee [id number] Active 200808/05/19 23 - Comments only - Lilli Packer MD - For which he is using his prosthet ic, no current concerns with it. Problem Code: Z89.519; Problem Code Type: ICD-10; Not Available [facility] 3 05:55:51 Osteomye litis 90493221 Active 2010 Problem Code: M86.9; Problem Code Type: ICD-10; Not Available [facility] 3 05:55:51 Spinal stenosis 93075266 Active 2010 Problem Code: M48.00; Problem Code Type: ICD-10; Not Available [facility] 3 05:55:51 Not for resuscit ation 087644529 Active 2013 Problem Code: Z66; Problem Code Type: ICD-10; Not Available [facility] 3 05:55:51 Polyneur opathy 09737855 Active 201408/05/19 23 - Comments only - Lilli Packer MD - Which may be contribu ting to his imbalanc e. He does get benefit from the gabapent in, not sure if also could be contribu ting to his symptoms balance/ lighthea dedness. He has been on the same dose now for quite some time so I think this is less likely. Problem Code: G62.9; Problem Code Type: ICD-10; Not Available [facility] 3 05:55:51 Hyperlip idemia 29922569 Active 201408/05/19 23 - Comments only - Lilli Packer MD - On [facility], will check LFTs. Problem Code: E78.5; Problem Code Type: ICD-10; Not Available [facility] 3 05:55:51 Right foot drop 85806134280 9106 Active 2015 Problem Code: M21.371; Problem Code Type: ICD-10; Not Available [facility] 3 05:55:51 Hearing loss 04540839 Active 2015 Problem Code: H91.90; Problem Code Type: ICD-10; Not Available [facility] 3 05:55:52 Adult health examinat ion Active 201610/16/19 22 - Comments only - Lilli Packer MD - Jason would like a PSA checked Problem Code: Z00.00; Problem Code Type: ICD-10; Not Available [facility] 3 05:55:52 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 He is followin g closely with podiatry . Aware of the importan ce of gricelda ramos diabetic control. Problem Code: E11.621; Problem Code Type: ICD-10; Not Available [facility] 3 05:55:52 Disorder due to type 2 diabetes mellitus 039460459 Active 200801/18/20 22 - Comments only - Lilli Packer MD - Control still not at goal. A1c today 8.4, staying in the same range as the last few checks. Discusse d trying to increase his insulin or add in Trulicit y. He wants to hold off on both of these options, feels that if he can get going with PT and become more physical ly active then will help. He will consider 1 of those options if A1c is not improved by the next visit. He does continue on Glucotro l 10 mg daily, Levemir 74 units daily, lisinopr il, metformi n, mealtime insulin Problem Code: E11.8; Problem Code Type: ICD-10; Not Available [facility] 3 05:55:52 Muscle pain 54848930 Active 2017 Problem Code: M79.1; Problem Code Type: ICD-10; Not Available [facility] 3 05:55:52 Vitamin D deficien cy 20692654 Active 2017 Problem Code: E55.9; Problem Code Type: ICD-10; Not Available [facility] 3 05:55:52 Incoordi [facility] [place] [id number] Active 201712/28/19 21 - Comments only - Lilli Packer MD - No new findings on exam today. He has a lt BKA and is insensat e in his rt foot so this is part of the problem, but this sensatio n of everythi ng going transien tly limp seems newer. If persiste nt he will let me know and would consider holter monitori ng/brain imaging. Problem Code: R27.9; Problem Code Type: ICD-10; Not Available [facility] 3 05:55:52 Vitamin B deficien cy 65674506 Active 201701/18/20 22 - Comments only - Lilli Packer MD - , Recent vitamin B-12 level was appropri ate. We will double check with him that he is continui ng the monthly injectio ns. Problem Code: E53.8; Problem Code Type: ICD-10; Not Available [facility] 3 05:55:52 Localize d edema 709393941 Active 2017 Problem Code: R60.0; Problem Code Type: ICD-10; Not Available [facility] 3 05:55:53 Malaise 668030374 Active 2017 Problem Code: R53.81; Problem Code Type: ICD-10; Not Available [facility] 3 05:55:53 Amputate d toe 466747069 Active 201701/24/20 18 - Comments only - Allan a Udupi - Suggeste d him to undergo PT for his leg. Suggeste d that he may try a recumben t bike which would be in a more relaxed position . Problem Code: Z89.429; Problem Code Type: ICD-10; Not Available [facility] 3 05:55:53 Dysphagi a 61002874 Active 201809/19/19 19 - Comments only - Allan a Udupi - Stable at present. He feels comforta ble continui ng to monitor. Problem Code: R13.10; Problem Code Type: ICD-10; Not Available [facility] 3 05:55:53 Non-trau matic tendon rupture 053357569 Active 201801/03/20 19 - Comments only - Allan a Udupi - Orthoped ics advised him to undergo physical therapy. He complete d a session with physical therapy. Problem Code: M66.821; Problem Code Type: ICD-10; Not Available [facility] 3 05:55:53 Insomnia 731239844 Active 201801/03/20 19 - Comments only - Allan a Udupi - Stable on melatoni n and Tylenol PM. He will continue the same. Problem Code: G47.00; Problem Code Type: ICD-10; Not Available [facility] 3 05:55:54 Disorder of skin and/or subcutan eous tissue 45966478 Active 201804/28/19 23 - Comments only - Lilli Packer MD - , No current evidence of infectio n. Likely related to his prosthet ic. He is meeting with the prosthet ists today or tomorrow and will discuss with them. Problem Code: L98.9; Problem Code Type: ICD-10; Not Available [facility] 3 05:55:54 Abnormal weight gain 957780897 Active 2019 Problem Code: R63.5; Problem Code Type: ICD-10; Not Available [facility] 3 05:55:54 Epidermo id cyst of skin 980065047 Completed 201909/02/2019 08/19/19 20 - Comments only - Lina Michaels PA-C - Patient to continue on CLINDAMY KADI as RXd as manageme nt of acute infectio us process. As means of treating underlyi ng suspecte d patricia s cyst, however, will arrange for surgical consult at [facility] at next availabl e. F/U PRN Problem Code: L72.3; Problem Code Type: ICD-10; Not Available [facility] 3 05:55:54 Furuncle 861743778 Active 201903/23/19 21 - Comments only - Lilli Packer MD - , History of right upper chest wall. He may be developi ng a new cyst in the area although no current evidence of infectio us process. I did provide him with a prescrip tion for doxycycl ine that he can keep on hand in case he does feel it starts to become infected again. If it does I asked that he can either call me or general surgery so that we can look at it and decide if needs further excision . Problem Code: L02.92; Problem Code Type: ICD-10; Not Available [facility] 3 05:55:54 History of fall 475648127 Active 201908/05/19 23 - Comments only - Lilli Packer MD - /Balance concerns . A couple of episodes of feeling lighthea ded. These were not associat ed with low blood sugars. Instruct ed to check his blood pressure if he notices any lighthea dedness. I do not necessar elvia think this is related to his vestibul ar system but he is going to meet with ENT shortly and will ask them to evaluate this. Pending their evaluati on we will consider brain imaging/ neurolog y referral . Problem Code: Z91.81; Problem Code Type: ICD-10; Not Available [facility] 3 05:55:54 Shoulder joint pain 373642566 Active 202001/18/20 22 - Comments only - Lilli Packer MD - For which he does follow with orthoped ics. They have told him there is not a lot more they can do at this juncture . He has had shoulder surgery sabino pang. At this point he continue s to try and keep as mobile as he can, uses Tylenol for milder pain, reserve the oxycodon e for more severe pain. V PMS is appropri ate. I did renew the oxycodon e, 28 tablets, we will schedule to meet with him again in 3 to 4 months, he will call in the interim if he does need another prescrip tion. Problem Code: M25.519; Problem Code Type: ICD-10; Not Available [facility] 3 05:55:55 Altered bowel function 18884191 Active 202110/16/19 22 - Comments only - Lilli Packer MD - We discusse d that since he is noticing a change in bowels the recommen dation would be a colonosc opy which she has previous ly declined having done. Today again he states he prefer not to have a colonosc opy, he is interest ed in doing a Cologuar d. He is due for colon cancer screenin g and will place the order. He states that the Cologuar d were to come back positive then he would consider colonosc opy. Problem Code: R19.4; Problem Code Type: ICD-10; Not Available [facility] 3 05:55:55 Musculos keletal symptom 86512228 Active 202101/18/20 22 - Comments only - Lilli Packer MD - , Could be combinat ion of his radiculo al and decondit ioning. He does think to be a good idea to meet with PT again. Referral made. Problem Code: R29.898; Problem Code Type: ICD-10; Not Available [facility] 3 05:55:55 Cellulit is of left lower limb 47777677625 211235 Completed 202205/23/2022 Problem Code: L03.116; Problem Code Type: ICD-10; Not Available [facility] 3 05:55:55 Dizzines s and giddines s 829973418 Active 2022 Problem Code: R42; Problem Code Type: ICD-10; Not Available [facility] 3 05:55:55 Fever 027273704 Completed 201609/24/2020 Problem Code: R50.81; Problem Code Type: ICD-10; Not Available [facility] 3 05:56:12 Cellulit is of left lower limb 21655594483 903338 Completed 201410/25/2016 Problem Code: L03.116; Problem Code Type: ICD-10; Not Available [facility] 3 05:56:12 History of clinical finding in subject 957135347 Completed 201011/14/2022 Not Available [facility] 3 05:56:13 Acute osteomye litis of ankle and/or foot 545133357 Completed 201011/14/2022 Problem Code: 730.07; Problem Code Type: ICD-9; Not Available [facility] 3 05:56:14 Pain in limb 28313043 Completed 201709/24/2020 Problem Code: M79.609; Problem Code Type: ICD-10; Not Available [facility] 3 05:56:15 Nicotine dependen ce 82755493 Completed 201709/24/2020 Problem Code: Z87.891; Problem Code Type: ICD-10; LE[place] Cam[place] - [facility]. 4 14:57:43 Bronchit is 94448629 Completed 201709/24/2020 Problem Code: J40; Problem Code Type: ICD-10; Not Available [facility] 3 05:56:17 Abdomina l pain 56981114 Completed 201509/24/2020 Problem Code: R10.9; Problem Code Type: ICD-10; Not Available [facility] 3 05:56:17 Pain in right lower limb 585108841 Completed 201510/25/2016 Problem Code: M79.604; Problem Code Type: ICD-10; Not Available [facility] 3 05:56:18 Diabetes mellitus 30430300 Completed 200811/14/2022 10/20/19 15 - Deterior delmi - Lilli Packer MD - Worsenin g control. Sounds like he remains on track with diet and the exericis e he is capable of. We agreed to continue with current meds, he will try and work more on lowing BS's. If not improvin g in 3 months will increase doses on medicati ons. Not Available [facility] 3 05:56:18 Acute appendic itis with generali zed peritoni tis 49159704 Completed 201610/25/2016 Problem Code: K35.2; Problem Code Type: ICD-10; Not Available [facility] 3 05:56:20 Cellulit is of right lower limb 04591266795 196196 Completed 201609/24/2020 Problem Code: L03.115; Problem Code Type: ICD-10; Not Available [facility] 3 05:56:21 Pain of left shoulder joint 10956193787 211050 Completed 201703/23/2020 Problem Code: M25.512; Problem Code Type: ICD-10; Not Available [facility] 3 05:56:21 Shoulder joint pain 364755802 Completed 201010/25/2016 Problem Code: M25.519; Problem Code Type: ICD-10; Not Available [facility] 3 05:56:23 Type 2 diabetes mellitus without complica tion 880461212 Completed 200801/25/2017 Problem Code: E11.9; Problem Code Type: ICD-10; Not Available [facility] 3 05:56:23 Shoulder pain 81449918 Completed 201011/14/2022 Not Available [facility] 3 05:56:24 Chronic ulcer of foot 293624079 Completed 201609/24/2020 Problem Code: L97.509; Problem Code Type: ICD-10; Not Available [facility] 3 05:56:24 Cholecys tectomy Completed 202310/26/2023 Removal Reason: 2023, gangrene ous gallblad alma rosa LILLI PACKER MD [address], [place], [address] , [facility] 4 06:37:38 Cholecys titis 90445313 Active 2023 LILLI PACKER MD [address], [place], [address] , [facility] 4 14:29:58 Problem Notes None recorded. Medical Equipment None Reported. Allergies Allergen ID Allergen Name Allergen Category Reaction Reaction Severity Criticality Documentation Date Start Date Code Code System Note Provider Name and Address Organization Details Recorded Time Bactrim medicatio n Not available Not available [facility] 12/28/20222010 87623 9 RxNorm Lolly Melendez [facility], [facility] 3 09:38:11 40818 simvastat in medicatio n myalgias (muscle pain) severe high 12/28/20222012 58168 RxNorm Lolly Melendez [facility], [facility] 3 09:39:16 73417 sulfadiaz ine medicatio n hives severe high 12/28/20222010 71768 RxNorm Lolly Melendez [facility] 3 09:39:23 98670 Medicinal product containin g penicilli n and acting as antibacte rial agent (product) medicatio n other severe high 12/28/20222010 21837 05 SNOMED Shock Lolly Melendez null, [facility] 3 09:38:42 06438 Levaquin medicatio n other severe high 12/28/20222010 74083 2 RxNorm Lolly Melendez [facility] 3 09:38:24 49411 onion extract food,medi cation angioedem a severe high 02/15/20232020 34497 69 RxNorm Lolly Melendez [facility] 3 09:39:06 Medications Name Sig Start Date Stop Date Status Note LastModified by Organization Details LastModified Time Cipro 750 mg tablet 1 TAB twice daily 05/29 completed Not Available Not Available Not Available Colace 100 mg capsule one twice daily 2016 active [facility] aislinn hines Not Available Not Available Not Available doxycycli ne hyclate 100 mg capsule TAKE 1 CAPSULE BY MOUTH TWICE DAILY FOR 7 DAYS 02/21 completed Not Available Not Available Not Available lidocaine 4 % topical patch apply one transder mal patch qAM active [facility] discharg e Not Available Not Available Not Available Klor-Con 10 mEq tablet,ex tended release Take 1 tablet every day by oral route. active [facility] discharg e Not Available Not Available Not Available clindamyc in HCl 300 mg capsule Take 1 capsule by mouth four times a day 05/29 completed Not Available Not Available Not Available cefpodoxi me 200 mg tablet TAKE 2 TABLETS BY MOUTH TWICE DAILY FOR 5 DAYS WITH A MEAL / FOOD 11/28 completed Not Available Not Available Not Available hydrocodo ne 5 mg-acetam inophen 325 mg tablet 1 tab every 4 hours 01/18 completed [facility] ARREOL[facility] Not Available Not Available Not Available glipizide ER 10 mg tablet, extended release 24 hr Take 1 tablet by mouth once daily active Not Available Not Available No t Available simvastat in 10 mg tablet Take 1 by mouth daily 04/25 completed Not Available Not Available Not Available metformin 850 mg tablet TAKE 1 TABLET BY MOUTH once DAILY in the evening 01/12 [facility] Not [facility] Not Available Not Available clindamyc in HCl 150 mg capsule 1CAP QID 06/05 completed Not Available Not Available Not Available melatonin 3 mg tablet Take 15 mg every day by oral route at bedtime. active [facility] discharg e Not Available Not Available Not Available clopidogr el 75 mg tablet Take 1 tablet every day by oral route. active [facility] discharg e summary Not Available Not Available Not Available oxycodone 15 mg tablet TAKE 1 TABLET BY MOUTH 4 TIMES DAILY NEEDED active Not Available Not Available No t Available Glucotrol XL 5 mg tablet,ex tended release 1 TAB EVERY MORNING 02/25 completed Not Available Not Available Not Available Lasix 20 mg tablet Take 1 tablet every day by oral route. [facility] Not [facility] Not Available Not Available pantopraz ole 40 mg tablet,de layed release TAKE 1 TABLET BY MOUTH ONCE DAILY active Not Available Not Available No t Available cyanocoba sydni (vit B-12) 1,000 mcg/mL injection solution INJECT 1ML INTRAMUS CULARLY ONCE A MONTH active Not Available Not Available No t Available Prozac 20 mg capsule 1 CAP QD 11/22 completed Not Available Not Available Not Available BD Luer-Ce Syringe 3 mL 25 gauge x 1 USE 1 SYRINGE INTRAMUS CULARLY ONCE EVERY MONTH WITH VITAMIN B-12 INJECTIO N active Not Available Not Available No t Available gabapenti n 300 mg capsule TAKE 3 CAPSULES BY MOUTH IN THE MORNING AND 5 IN THE EVENING active Not Available Not Available No t Available omeprazol e 20 mg capsule,d elayed release Take 1 tablet by mouth daily 10/12 completed (tablets are not covered by his prescrip tion plan) Not Available Not Available Not Available aspirin 81 mg tablet Take 1 tablet by mouth once a day 2016 active Not Available Not Available Not Avai lable ergocalci ferol (vitamin D2) 1,250 mcg (50,000 unit) capsule Take one Tablet Weekly 05/10 completed Not Available Not Available Not Available Aspir-81 mg tablet,de layed release Take 1 tab by mouth daily 2016 active Not Available Not Available Not Avai lable ibuprofen 600 mg tablet Take 1 tab by mouth three times daily as needed 10/25 completed [facility] Hines Not Available Not Available Not Available Septra DS 800 mg-160 mg tablet 1 TAB BID 06/27 completed Not Available Not Available Not Available Percocet 5 mg-325 mg tablet 3 at bedtime 06/10 completed Not Available Not Available Not Available lisinopri l 2.5 mg tablet Take 1 tablet by mouth once daily 12/14 completed Not Available Not Available Not Available doxycycli ne hyclate 100 mg tablet Take 1 tab by mouth twice daily - start if the cyst/sca r hurts/be comes infectte d 04/01 completed Not Available Not Available Not Available Ventolin HFA 90 mcg/actua tion aerosol inhaler 2 puffs every 4-6 hours as needed 01/23 completed given at [facility] ER Not Available Not Available Not Available oxycodone 5 mg tablet Take 1 tab by mouth three times daily as needed for pain 12/14 completed Not Available Not Available Not Available Bactrim DS 800 mg-160 mg tablet 1 BID 10/09 completed Not Available Not Available Not Available Benadryl Allergy 25 mg tablet Take 1 tablet every day by oral route as needed. active PRN - [facility] discharg e Not Available Not Available Not Available ezetimibe 10 mg tablet TAKE 1 TABLET BY MOUTH ONCE DAILY FOR CHOLESTE ROL active Not Available Not Available No t Available Novolog FlexPen U-100 Insulin aspart 100 unit/mL (3 mL) subcutane ous INJECT UP TO 55 UNITS PER DAY SUBCUTAN EOUSLY DIRECTED PER SLIDING SCALE PRIOR TO MEALS 01/12 completed stopped by [facility] discharg e Not Available Not Available Not Available Tylenol PM Extra Strength 25 mg-500 mg tablet 1/2 tab at bedtime 07/28 completed Not Available Not Available Not Available rosuvasta tin 20 mg tablet Take 1 tablet every day by oral route at bedtime. active [facility] discharg e Not Available Not Available Not Available duloxetin e 30 mg capsule,d elayed release Take 2 capsules every day by oral route. [facility] Not Available Not Available Not Available Tylenol PM Extra Strength 08/29 completed Not Available Not Available Not Available Levemir FlexPen 100 unit/mL (3 mL) solution subcutane ous insulin pen INJECT 74 UNITS SUBCUTAN EOUSLY ONCE DAILY AT NIGHT 02/25 completed Not Available Not Available Not Available BD Ultra-Fin e Short Pen Needle 31 gauge x 5/16 USE 1 PEN NEEDLE FOUR TIMES DAILY TO INJECT INSULIN SUBCUTAN EOUSLY active Not Available Not Available No t Available FreeStyle Lite Strips USE 1 STRIP TO CHECK GLUCOSE THREE TIMES DAILY active Not Available Not Available No t Available FreeStyle Lite Strips Use four times a day 2013 active Not Available Not Available Not Avai lable Lantus Solostar U-100 Insulin 100 unit/mL (3 mL) subcutane ous pen Inject 48 units every day by subcutan eous route in the morning. active [facility] discharg e Not Available Not Available Not Available omeprazol e 20 mg tablet,de layed release Take 1 tab by mouth daily. 2015 active Not Available Not Available Not Avai lable cholecalc iferol (vitamin D3) 50 mcg (2,000 unit) capsule TAKE 1 CAPSULE BY MOUTH ONCE DAILY DIRECTED active Not Available Not Available No t Available cholecalc iferol (vitamin D3) 50 mcg (2,000 unit) tablet TAKE 1 TABLET BY MOUTH ONCE DAILY 02/21 completed Not Available Not Available Not Available Trulicity 1.5 mg/0.5 mL subcutane ous pen injector INJECT 1.5MG SUBCUTAN EOUSLY ONCE A WEEK 11/28 completed Not Available Not Available Not Available Trulicity 0.75 mg/0.5 mL subcutane ous pen injector 0.75mg once a week for 4 weeks. If tolerati ng you can then increase to 1.5mg weekly 07/12 completed Not Available Not Available Not Available melatonin 10 mg-lemon balm leaf extract 1 mg tablet 1 tab qhs 01/12 completed Not Available Not Available Not Available Tresiba FlexTouch U-200 insulin 200 unit/mL (3 mL) subcutane ous pen INJECT 55 UNITS SUBCUTAN EOUSLY ONCE DAILY IN THE EVENING 01/12 completed stopped by [facility] discharg e Not Available Not Available Not Available Trulicity 3 mg/0.5 mL subcutane ous pen injector Inject 3 mg every week by subcutan eous route, for diabetes . 01/12 completed stopped by [facility] discharg e Not Available Not Available Not Available Vitals Date Recorded Body height Body mass index (BMI) Body weight Oxygen saturation Oxygen saturation in Arterial blood by Pulse oximetry Heart rate Systolic blood pressure Diastolic blood pressure Provider Name and Address Organization Details Last Updated DateTime 4 184.302 4 cm 35.5 kg/m2 271232. 57 g 97 % 97 % 74 /min 112 mm[Hg] 68 mm[Hg] Skinny Reza MA [facility] 13:53:41 Social History Question Answer Notes LastModified by Organizat ion Details LastModified Time Tobacco Smoking Status Former Smoker Lolly العلي [facility] 02/21/2023 13:13:08 When Did You Quit Smoking? 6-10yearssin celastcileesa pae [email or web address] Information not available 02/21/2023 What Was The Date Of Your Most Recent Tobacco Screening? 02/21/2023 [email or web address] Information not available 02/21/2023 What Is Your Current Pack Years? 10-19packyea rs [email or web address] Information not available 02/21/2023 At What Age Did You Start Smoking Tobacco? 18 [email or web address] Information not available 02/21/2023 How Much Tobacco Do You Smoke? No [email or web address] Information not available 02/21/2023 Has Tobacco Cessation Counseling Been Provided? No [email or web address] Information not available 02/21/2023 How Many Years Have You Smoked Tobacco? 40 [email or web address] Information not available 02/21/2023 Do You Or Have You Ever Used Any Other Forms Of Tobacco Or Nicotine? No [email or web address] Information not available 02/21/2023 Sex: Male Functional Status None recorded. Mental Status None recorded. Family History Relationship Description Onset Age of this Age Resolved Age Notes LastModified by Organization Details LastModified Time Mother No family history of respiratory disease [email or web address] Not available 2022 03:58:58 Mother Family history of heart failure [email or web address] Not available 2022 03:58:58 Notes:*Problem: Mother: he l eft home at 16, all he knows is that she from heart attack and she had COPD. Father: adopted at 16 , but not in touch with his biological father Sisters: None Brothers: None Children: 1 , not in contact Family History of: Diabetes mellitus: Yes - Grandmother Medical History No medical history recorded. Immunizations Vaccine Type Date Status Provider Name and Address Organization Details Recorded Time Tdap 04/04/2011 completed Not Available [facility] 05:42:01 Pneumococcal conjugate PCV 13 07/27/2016 completed Not Available [facility] 12/28/2022 05:42:01 COVID-19, mRNA, LNP-S, PF, 100 mcg/0.5mL dose or 50 mcg/0.25mL dose 05/12/2020 completed Not Available [facility] 12/28/2022 05:42:03 COVID-19, mRNA, LNP-S, PF, 100 mcg/0.5mL dose or 50 mcg/0.25mL dose 06/09/2020 completed Not Available [facility] 12/28/2022 05:42:03 COVID-19, mRNA, LNP-S, PF, 100 mcg/0.5mL dose or 50 mcg/0.25mL dose 12/23/2020 completed Not Available [facility] 12/28/2022 05:42:04 pneumococcal polysaccharide PPV23 12/29/2010 completed Not Available [facility] 20[facility] 05:42:05 Past Encounters Encounter ID Performer Location Encounter Start Date Encounter Closed Date Diagnosis/Indication Diagnosis SNOMED-CT Code Diagnosis ICD10 Code [id number] LILLI PACKER MD [address] [address] 11/29/2023 13:23:40 11/29/2023 15:09:04 Disorder due to type 2 diabetes mellitus 984967762 E11.8 Shoulder joint pain 2679 32037 M25.519 Amputated below knee 299 308719 Z89.519 Cholecystitis 97295291 K 81.9 Health Concerns Section Related Observation LastModified by Organization Detai ls LastModified Time None Recorded Concern Status LastModified by Organization Details LastModified Time None Recorded Payers Encounter Date Sequence Insurance Name Policy Number Policy Noble Covered Member ID Noble Member ID Guarantor Name 11/29/2023 1 [place] [employer] Suhail Galeano [id number] Suhail Galeano Notes Date Note Type Note Provider Name and Address Organization Details Recorded Time 11/29/2023 text/html Jason here today for follow-up diabetes, recent cholecystectomy LILLI PACKER MD [address], [place], [address], [facility]. 12/02/2023 14:41:31
--- OUTSIDE RECORDS SUMMARY | 2024-01-15 17:03 | XMS_ITS | Data Portability ---
Author Organization [facility] Address [address] [place] [address] Care Team Providers Care Internal Medicine Specialist Name Role Phone LILLI PACKER Primary Care Provider [phone] ESPERANZA DOWLING Culinary Specialist [facility] OFFICE Ophthalmol ogist [facility] Dentist Assessment No assessment recorded. Plan of Treatment Reminders Order Date Submit Date Provider Last Modified By Organization Details Last Modified Time Details Appointments Follow Up 30 2024 01:00P M LILLI PACKER Not available Not available Not available Lab hemoglobi n A1C, fingersti ck [address] [facility], [address] [place], [address], 05/28/2023 17:05:06 hemoglobi n A1C, fingersti ck [address] [facility], [address] [place], [address], 08/30/2023 15:13:05 CMP, serum or plasma 2023 024 [facility] ), [address] [place] [address] [place], [address], 08/30/2023 19:00:58 lipid panel, serum 2023 024 [facility] (Registration ), [address] [place] [address] [place], [address], 08/30/2023 15:13:05 CK (creatine kinase), total, serum 2023 [facility] ), [address] [place] [address] [place], [address], 08/30/2023 19:14:02 hemoglobi n A1C, fingersti ck 2023 [facility], [address] [place], [address], 11/29/2023 15:23:04 Referral None recorded. Procedures None recorded. Surgeries None recorded. 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 MY, ACUTE PAIN ON CHRONIC, R/O DISC HERNIATIO N 2023 [id number] [email or web address] [facility], [address], [place], [address], 07/16/2023 14:57:48 Medication Orders cyanocoba sydni (vit B-12) 1,000 mcg/mL injection solution 2023 024 [facility], [address] [place] [address], [address], 05/29/2023 17:52:20 oxycodone 15 mg tablet 2023 024 [facility], [address] [place] [address], [address], 05/29/2023 17:52:14 oxycodone 15 mg tablet 2023 024 [facility], [address] [place] [address], [address], 08/30/2023 15:10:48 Trulicity 3 mg/0.5 mL subcutane ous pen injector 2023 024 [facility], [address] [place], [address], 01/13/2024 12:04:27 oxycodone 15 mg tablet 2023 024 [facility], [address] [place], [address], 11/29/2023 15:26:08 Patient TargetsNo targets recorded. Patient Instructions Encounter Date Encounter Id Patient Instructions Last Modified By Organization Details Last Modified Time 06/12/2023 [id number] [facility] will call you about the MRI use Tylenol and naproxen twice a day with food for one week- if no improvement in symptoms call [facility] for a med change follow up in 3-4 weeks with either Romelia or Lilli. [email or web address] Not available 06/12/2023 14:26:00 08/30/2023 [id number] Once you get the higher dose trulicity (3mg/wk) then DECREASE the tresiba (long acting insulin) to 60 units in the evening. Monitor your BS's more frequently when you are on the higher dose trulicity. [email or web address] Not available 08/30/2023 14:20:43 11/29/2023 [id number] Continue to decrease the tresiba by 5 units at a time (tonight decrease to 50 units). Goal BS in the AM 70-120. [email or web address] Not available 12/02/2023 14:25:56 Reason for Referral None Reported. Results Created Date Observation Date Name Description Value Unit Range Abnormal Flag Note LastModifiedBy Organization Detail LastModifiedTime 05/28/1905/28/2023 hemog lobin A1C, finge rstic k hemoglobin A1C 7.8 % <5.7 Not Available [facility] [address] [place], [address], 05/28/2023 13:51:19 08/30/19 24 08/30/2023 COMPR EHENS ANDRES METAB OLIC PANEL calcium 9.2 mg/dL 8.5-10 .1 normal Not Available [address] [place], [address] 08/30/2023 19:14:01 08/30/19 24 08/30/2023 COMPR EHENS ANDRES METAB OLIC PANEL glucose 102 mg/dL 74-106 normal Not Available [facility] [address] [place], [address] 08/30/2023 19:14:01 08/30/19 24 08/30/2023 COMPR EHENS ANDRES METAB OLIC PANEL BUN 18 mg/dL 7-18 normal Not Available [facility] [address] [place], [address] 08/30/2023 19:14:01 08/30/19 24 08/30/2023 COMPR EHENS ANDRES METAB OLIC PANEL creatinine 1.2 mg/dL 0.70-1 .30 normal Not Available [address] [place], [address] 08/30/2023 19:14:01 08/30/19 24 08/30/2023 COMPR EHENS ANDRES METAB OLIC PANEL estimated GFR 64.25 mL/min /1.73m 2 The eGFR is calcu lated from a serum creat inine using the CKD-E PI 2020 equat ion. Other varia bles requi red for the equat ion are gende r and age; this equat ion does not inclu de a race coeff icien t. This equat ion has simil ar overa ll perfo rmanc e to previ ous equat ions excep t value s may diffe r, in parti cular , in patie nts with highe r value s of eGFR and young er-ag ed adult s. Not Available [address] [place], [address] 08/30/2023 19:14:01 08/30/19 24 08/30/2023 COMPR EHENS ANDRES METAB OLIC PANEL total protein 7.2 g/dL 6.4-8. 2 normal Not Available [address] [place], [address] 08/30/2023 19:14:01 08/30/19 24 08/30/2023 COMPR EHENS ANDRES METAB OLIC PANEL albumin 4.1 g/dL 3.4-5. 0 normal Not Available [address] [place], [address] 08/30/2023 19:14:01 08/30/19 24 08/30/2023 COMPR EHENS ANDRES METAB OLIC PANEL bilirubin, total 0.41 mg/dL 0.2-1. 0 normal Not Available [address] [place], [address] 08/30/2023 19:14:01 08/30/19 24 08/30/2023 COMPR EHENS ANDRES METAB OLIC PANEL alk phos 63 U/L 46-116 normal Not Available [address] [place], [address] 08/30/2023 19:14:01 08/30/19 24 08/30/2023 COMPR EHENS ANDRES METAB OLIC PANEL sodium 144 mmol/ L 136-14 5 normal Not Available [address] [place], [address] 08/30/2023 19:14:01 08/30/19 24 08/30/2023 COMPR EHENS ANDRES METAB OLIC PANEL potassium 5.4 mmol/ L 3.5-5. 1 high Not Available [address] [place], [address] 08/30/2023 19:14:01 08/30/19 24 08/30/2023 COMPR EHENS ANDERS METAB OLIC PANEL chloride 109 mmol/ L 98-107 high Not Available [address] [place], [address] 08/30/2023 19:14:01 08/30/19 24 08/30/2023 COMPR EHENS ANDRES METAB OLIC PANEL CO2 26.0 mmol/ L 21.0-3 2.0 normal Not Available [address] [place], [address] 08/30/2023 19:14:01 08/30/19 24 08/30/2023 COMPR EHENS ANDRES METAB OLIC PANEL anion gap 9.0 mmol/ L 3-11 normal Not Available [address] [place], [address] 08/30/2023 19:14:01 08/30/19 24 08/30/2023 COMPR EHENS ANDRES METAB OLIC PANEL AST 26 U/L 15-37 normal Not Available [facility] [address] [place], [address] 08/30/2023 19:14:01 08/30/19 24 08/30/2023 COMPR EHENS ANDRES METAB OLIC PANEL ALT 28 U/L 16-63 normal Not Available [facility] [address] [place], [address] 08/30/2023 19:14:01 08/30/19 24 08/30/2023 LIPID 2 cholesterol 204 mg/dL <200 high Not Available [address] [place], [address] 08/30/2023 19:00:58 08/30/19 24 08/30/2023 LIPID 2 triglyceride 208 mg/dL <150 high Not Available [address] [place], [address] 08/30/2023 19:00:58 08/30/19 24 08/30/2023 LIPID 2 HDL cholesterol 41 mg/dL 40-60 Not Available [address] [place], [address] 08/30/2023 19:00:58 08/30/19 24 08/30/2023 LIPID 2 calculated LDL 122 mg/dL <100 high Natio nal Shruthi stero l Educa tion Progr am (NCEP -ATPI II) class ifica tions : Shruthi stero l <200 mg/dL Mark able Shruthi stero l 200-2 39 mg/dL Borde rline High Shruthi stero l >or=2 40 mg/dL High HDL <40 mg/dL Low HDL >or=6 0 mg/dL High LDL <100 mg/dL Optim al LDL 100-1 29 mg/dL Near Optim al/Ab ove Optim al LDL 130-1 59 mg/dL Borde rline High LDL 160-1 89 mg/dL High LDL >or=1 90 mg/dL Very High *The above refer ence range is for adult s 18 years or older . Not Available [address] [place], [address] 08/30/2023 19:00:58 08/30/19 24 08/30/2023 LIPID 2 cholesterol 204 mg/dL <200 high Not Available [address] [place], [address] 08/30/2023 19:14:01 08/30/19 24 08/30/2023 LIPID 2 triglyceride 208 mg/dL <150 high Not Available [address] [place], [address] 08/30/2023 19:14:01 08/30/19 24 08/30/2023 LIPID 2 HDL cholesterol 41 mg/dL 40-60 Not Available [address] [place], [address] 08/30/2023 19:14:01 08/30/19 24 08/30/2023 LIPID 2 calculated LDL 122 mg/dL <100 high Natio nal Shruthi stero l Educa tion Progr am (NCEP -ATPI II) class ifica tions : Shruthi stero l <200 mg/dL Mark able Shruthi stero l 200-2 39 mg/dL Borde rline High Shruthi stero l >or=2 40 mg/dL High HDL <40 mg/dL Low HDL >or=6 0 mg/dL High LDL <100 mg/dL Optim al LDL 100-1 29 mg/dL Near Optim al/Ab ove Optim al LDL 130-1 59 mg/dL Borde rline High LDL 160-1 89 mg/dL High LDL >or=1 90 mg/dL Very High *The above refer ence range is for adult s 18 years or older . Not Available [address] [place], [address] 08/30/2023 19:14:01 08/30/19 24 08/30/2023 CREAT INE KINAS E creatine kinase 165 U/L 39-308 normal Not Available [address] [place], [address] 08/30/2023 19:14:02 08/30/19 24 08/30/2023 hemog lobin A1C, finge rstic k hemoglobin A1C 6.7 % <5.7 Not Available [facility] [address] [place], [address], 08/30/2023 13:39:12 10/20/19 24 10/20/2023 LACTA TE lactate 1.3 mmol/ L 0.6-1. 4 normal Not Available [address] [place], [address] 10/20/2023 17:18:52 10/20/19 24 10/20/2023 COMPR EHENS ANDRES METAB OLIC PANEL calcium 9.2 mg/dL 8.5-10 .1 normal Not Available [address] [place], [address] 10/20/2023 17:47:54 10/20/19 24 10/20/2023 COMPR EHENS ANDRES METAB OLIC PANEL glucose 271 mg/dL 74-106 high Not Available [facility] [address] [place], [address] 10/20/2023 17:47:54 10/20/19 24 10/20/2023 COMPR EHENS ANDRES METAB OLIC PANEL BUN 27 mg/dL 7-18 high Not Available [facility] [address] [place], [address] 10/20/2023 17:47:54 10/20/19 24 10/20/2023 COMPR EHENS ANDRES METAB OLIC PANEL creatinine 1.6 mg/dL 0.70-1 .30 high Not Available [address] [place], [address] 10/20/2023 17:47:54 10/20/19 24 10/20/2023 COMPR EHENS ANDRES METAB OLIC PANEL estimated GFR 45.50 mL/min /1.73m 2 The eGFR is calcu lated from a serum creat inine using the CKD-E PI 2020 equat ion. Other varia bles requi red for the equat ion are gende r and age; this equat ion does not inclu de a race coeff icien t. This equat ion has simil ar overa ll perfo rmanc e to previ ous equat ions excep t value s may diffe r, in parti cular , in patie nts with highe r value s of eGFR and young er-ag ed adult s. Not Available [address] [place], [address] 10/20/2023 17:47:54 10/20/19 24 10/20/2023 COMPR EHENS ANDRES METAB OLIC PANEL total protein 7.5 g/dL 6.4-8. 2 normal Not Available [address] [place], [address] 10/20/2023 17:47:54 10/20/19 24 10/20/2023 COMPR EHENS ANDRES METAB OLIC PANEL albumin 3.4 g/dL 3.4-5. 0 normal Not Available [address] [place], [address] 10/20/2023 17:47:54 10/20/19 24 10/20/2023 COMPR EHENS ANDRES METAB OLIC PANEL bilirubin, total 4.88 mg/dL 0.2-1. 0 high Not Available [address] [place], [address] 10/20/2023 17:47:54 10/20/19 24 10/20/2023 COMPR EHENS ANDRES METAB OLIC PANEL alk phos 230 U/L 46-116 high Not Available [address] [place], [address] 10/20/2023 17:47:54 10/20/19 24 10/20/2023 COMPR EHENS ANDRES METAB OLIC PANEL sodium 136 mmol/ L 136-14 5 normal Not Available [address] [place], [address] 10/20/2023 17:47:54 10/20/19 24 10/20/2023 COMPR EHENS ANDRES METAB OLIC PANEL potassium 5.0 mmol/ L 3.5-5. 1 normal Not Available [address] [place], [address] 10/20/2023 17:47:54 10/20/19 24 10/20/2023 COMPR EHENS ANDRES METAB OLIC PANEL chloride 103 mmol/ L 98-107 normal Not Available [address] [place], [address] 10/20/2023 17:47:54 10/20/19 24 10/20/2023 COMPR EHENS ANDRES METAB OLIC PANEL CO2 22.0 mmol/ L 21.0-3 2.0 normal Not Available [address] [place], [address] 10/20/2023 17:47:54 10/20/19 24 10/20/2023 COMPR EHENS ANDRES METAB OLIC PANEL anion gap 11.0 mmol/ L 3-11 normal Not Available [address] [place], [address] 10/20/2023 17:47:54 10/20/19 24 10/20/2023 COMPR EHENS ANDRES METAB OLIC PANEL AST 238 U/L 15-37 high Not Available [facility] [address] [place], [address] 10/20/2023 17:47:54 10/20/19 24 10/20/2023 COMPR EHENS ANDRES METAB OLIC PANEL ALT 197 U/L 16-63 high Not Available [facility] [address] [place], [address] 10/20/2023 17:47:54 10/20/19 24 10/20/2023 LIPAS E lipase 23 U/L 16-77 normal Not Available [facility] [address] [place], [address] 10/20/2023 17:47:54 10/20/19 24 10/20/2023 COMPL ETE BLOOD COUNT W/DIF F WBC 16.49 10_3/ uL 4.4-10 .8 high Not Available [address] [place], [address] 10/20/2023 18:09:56 10/20/19 24 10/20/2023 COMPL ETE BLOOD COUNT W/DIF F RBC 4.84 10_6/ uL 4.36-5 .78 normal Not Available [address] [place], [address] 10/20/2023 18:09:56 10/20/19 24 10/20/2023 COMPL ETE BLOOD COUNT W/DIF F HGB 14.3 g/dL 13.5-1 7.5 normal Not Available [address] [place], [address] 10/20/2023 18:09:56 10/20/19 24 10/20/2023 COMPL ETE BLOOD COUNT W/DIF F HCT 44.0 % 40.0-5 0.0 normal Not Available [address] [place], [address] 10/20/2023 18:09:56 10/20/19 24 10/20/2023 COMPL ETE BLOOD COUNT W/DIF F MCV 91 fL 80-95 normal Not Available [address] [place], [address] 10/20/2023 18:09:56 10/20/19 24 10/20/2023 COMPL ETE BLOOD COUNT W/DIF F MCH 29.5 pg 27.0-3 3.0 normal Not Available [address] [place], [address] 10/20/2023 18:09:56 10/20/19 24 10/20/2023 COMPL ETE BLOOD COUNT W/DIF F MCHC 32.5 % 32.0-3 6.0 normal Not Available [address] [place], [address] 10/20/2023 18:09:56 10/20/19 24 10/20/2023 COMPL ETE BLOOD COUNT W/DIF F RDW 13.4 % 11.8-1 4.1 normal Not Available [address] [place], [address] 10/20/2023 18:09:56 10/20/19 24 10/20/2023 COMPL ETE BLOOD COUNT W/DIF F platelet count 748 10_3/ uL 130-40 0 high Plate let count verif ied by smear estim ate. Large plate lets seen. Not Available [address] [place], [address] 10/20/2023 18:09:56 10/20/19 24 10/20/2023 COMPL ETE BLOOD COUNT W/DIF F MPV 10.3 fL 8.0-11 .0 normal Not Available [address] [place], [address] 10/20/2023 18:09:56 10/20/19 24 10/20/2023 COMPL ETE BLOOD COUNT W/DIF F neutrophils % 87.5 % Not Available [address] [place], [address] 10/20/2023 18:09:56 10/20/19 24 10/20/2023 COMPL ETE BLOOD COUNT W/DIF F lymphocytes % 4.1 % Not Available [address] [place], [address] 10/20/2023 18:09:56 10/20/19 24 10/20/2023 COMPL ETE BLOOD COUNT W/DIF F monocytes % 7.0 % Not Available [address] [place], [address] 10/20/2023 18:09:56 10/20/19 24 10/20/2023 COMPL ETE BLOOD COUNT W/DIF F eosinophils % 0.2 % Not Available [address] [place], [address] 10/20/2023 18:09:56 10/20/19 24 10/20/2023 COMPL ETE BLOOD COUNT W/DIF F basophils % 0.4 % Not Available [address] [place], [address] 10/20/2023 18:09:56 10/20/19 24 10/20/2023 COMPL ETE BLOOD COUNT W/DIF F immature grans % 0.8 % Not Available [address] [place], [address] 10/20/2023 18:09:56 10/20/19 24 10/20/2023 COMPL ETE BLOOD COUNT W/DIF F nucleated RBC 0.0 % 0.0-0. 3 normal Not Available [address] [place], [address] 10/20/2023 18:09:56 10/20/19 24 10/20/2023 COMPL ETE BLOOD COUNT W/DIF F absolute neutrophil count 14.43 10_3/ uL 1.2-6. 7 high Not Available [address] [place], [address] 10/20/2023 18:09:56 10/20/19 24 10/20/2023 COMPL ETE BLOOD COUNT W/DIF F absolute lymphocyte count 0.68 10_3/ uL 1.2-3. 4 low Not Available [address] [place], [address] 10/20/2023 18:09:56 10/20/19 24 10/20/2023 COMPL ETE BLOOD COUNT W/DIF F absolute monocyte count 1.15 10_3/ uL 0.1-0. 8 high Not Available [address] [place], [address] 10/20/2023 18:09:56 10/20/19 24 10/20/2023 COMPL ETE BLOOD COUNT W/DIF F absolute eosinophil count 0.03 10_3/ uL 0.0-0. 7 normal Not Available [address] [place], [address] 10/20/2023 18:09:56 10/20/19 24 10/20/2023 COMPL ETE BLOOD COUNT W/DIF F absolute basophil count 0.07 10_3/ uL 0.0-0. 2 normal Not Available [address] [place], [address] 10/20/2023 18:09:56 10/20/19 24 10/20/2023 COVID /FLU/ RSV PCR source Nasoph arynx Not Available [address] [place], [address] 10/20/2023 19:10:59 10/20/1910/20/2023 COVID /FLU/ RSV PCR covid-19 PCR Negati ve negati ve This test has not been FDA clear ed or appro stefano. This test has been autho rized by the FDA under an Emerg ency Use Autho rizat ion for use by autho rized labor atori es. This test has been autho rized only for detec tion of nucle ic acid from the 2019 novel coron a virus (2018 -nCoV ), influ tanesha A, influ tanesha B, and respi rator y syncy tial virus (RSV) , and not for the detec tion of any other virus es or patho gens. This test is only autho rized for the durat ion of the decla ratio n that circu mstan nikita exist justi fying the autho rizat ion of emerg ency use of in vitro diagn ostic tests for detec tion and/o r diagn osis of 2018- nCoV under secti on 564(b )(1) of Act, 21 U.S.C ??? 360bb b-3(b )(1), unles s the autho rizat ion is termi nated or revok ed soone r. Negat andres resul ts do not precl ude 2019- nCoV, influ tanesha, and/o r RSV infec tion and shoul d not be used as the sole basis for treat ment or other patie nt manag ement decis ions. Negat andres resul ts must be combi casa with clini khari obser vatio ns, patie nt histo ry, and epide miolo gical infor suzanne n. Testi ng perfo rmed at [facility] (CLIA #[id number]) on the Cephe id GeneX pert. Not Available [address] [place], [address] 10/20/2023 19:10:59 10/20/19 24 10/20/2023 COVID /FLU/ RSV PCR influenza A PCR Negati ve negati ve Not Available [address] [place], [address] 10/20/2023 19:10:59 10/20/19 24 10/20/2023 COVID /FLU/ RSV PCR influenza B PCR Negati ve negati ve Not Available [address] [place], [address] 10/20/2023 19:10:59 10/20/19 24 10/20/2023 COVID /FLU/ RSV PCR RSV PCR Negati ve negati ve Not Available [address] [place], [address] 10/20/2023 19:10:59 10/20/1910/20/2023 URINA LYSIS color Kaykay yellow Not Available [facility] [address] [place], [address] 10/20/2023 20:50:08 10/20/19 24 10/20/2023 URINA LYSIS clarity Clear clear Not Available [facility] [address] [place], [address] 10/20/2023 20:50:08 10/20/19 24 10/20/2023 URINA LYSIS specific gravity 1.010 1.005- 1.025 normal Not Available [address] [place], [address] 10/20/2023 20:50:08 10/20/19 24 10/20/2023 URINA LYSIS pH 5.0 5-8 normal Not Available [facility] [address] [place], [address] 10/20/2023 20:50:08 10/20/19 24 10/20/2023 URINA LYSIS leukocyte esterase Negati ve negati ve Not Available [address] [place], [address] 10/20/2023 20:50:08 10/20/19 24 10/20/2023 URINA LYSIS nitrite Negati ve negati ve Not Available [address] [place], [address] 10/20/2023 20:50:08 10/20/19 24 10/20/2023 URINA LYSIS protein 100 mg/dL neg-tr yusef abnormal Not Available [address] [place], [address] 10/20/2023 20:50:08 10/20/19 24 10/20/2023 URINA LYSIS glucose 500 mg/dL negati ve abnormal Not Available [address] [place], [address] 10/20/2023 20:50:08 10/20/19 24 10/20/2023 URINA LYSIS ketones 15 mg/dL negati ve abnormal Not Available [address] [place], [address] 10/20/2023 20:50:08 10/20/19 24 10/20/2023 URINA LYSIS urobilinogen >=8.0 mg/dL up to 0.2 abnormal Not Available [address] [place], [address] 10/20/2023 20:50:08 10/20/19 24 10/20/2023 URINA LYSIS bilirubin Large negati ve abnormal Not Available [address] [place], [address] 10/20/2023 20:50:08 10/20/19 24 10/20/2023 URINA LYSIS blood Negati ve negati ve Not Available [address] [place], [address] 10/20/2023 20:50:08 10/20/19 24 10/20/2023 URINA LYSIS color Kaykay yellow Not Available [facility] [address] [place], [address] 10/20/2023 20:59:08 10/20/19 24 10/20/2023 URINA LYSIS clarity Clear clear Not Available [facility] [address] [place], [address] 10/20/2023 20:59:08 10/20/19 24 10/20/2023 URINA LYSIS specific gravity 1.010 1.005- 1.025 normal Not Available [address] [place], [address] 10/20/2023 20:59:08 10/20/19 24 10/20/2023 URINA LYSIS pH 5.0 5-8 normal Not Available [facility] [address] [place], [address] 10/20/2023 20:59:08 10/20/19 24 10/20/2023 URINA LYSIS leukocyte esterase Negati ve negati ve Not Available [address] [place], [address] 10/20/2023 20:59:08 10/20/19 24 10/20/2023 URINA LYSIS nitrite Negati ve negati ve Not Available [address] [place], [address] 10/20/2023 20:59:08 10/20/19 24 10/20/2023 URINA LYSIS protein 100 mg/dL neg-tr yusef abnormal Not Available [address] [place], [address] 10/20/2023 20:59:08 10/20/19 24 10/20/2023 URINA LYSIS glucose 500 mg/dL negati ve abnormal Not Available [address] [place], [address] 10/20/2023 20:59:08 10/20/19 24 10/20/2023 URINA LYSIS ketones 15 mg/dL negati ve abnormal Not Available [address] [place], [address] 10/20/2023 20:59:08 10/20/19 24 10/20/2023 URINA LYSIS urobilinogen >=8.0 mg/dL up to 0.2 abnormal Not Available [address] [place], [address] 10/20/2023 20:59:08 10/20/19 24 10/20/2023 URINA LYSIS bilirubin Large negati ve abnormal Not Available [address] [place], [address] 10/20/2023 20:59:08 10/20/19 24 10/20/2023 URINA LYSIS blood Negati ve negati ve Not Available [address] [place], [address] 10/20/2023 20:59:08 10/20/19 24 10/20/2023 MICRO SCOPI C FINDI NGS WBC 0-2 hpf 0-5 Not Available [facility] [address] [place], [address] 10/20/2023 20:59:08 10/20/19 24 10/20/2023 MICRO SCOPI C FINDI NGS RBC Negati ve hpf 0-2 Not Available Edy casper [address] [place], [id number] 10/20/2023 20:59:08 10/20/19 24 10/20/2023 MICRO SCOPI C FINDI NGS epithelial cells Rare hpf negati ve Not Available [address] [place], [id number] 10/20/2023 20:59:08 10/20/19 24 10/20/2023 MICRO SCOPI C FINDI NGS other cells Rare Renal negati ve Not Available [address] [place], [address] 10/20/2023 20:59:08 10/20/19 24 10/20/2023 MICRO SCOPI C FINDI NGS bacteria Negati ve hpf negati ve Not Available [address] [place], [id number] 10/20/2023 20:59:08 10/20/19 24 10/20/2023 MICRO SCOPI C FINDI NGS crystals Rare Amorph ous hpf negati ve Not Available [address] [place], [id number] 10/20/2023 20:59:08 10/20/19 24 10/20/2023 MICRO SCOPI C FINDI NGS mucus Trace negati ve Not Available [address] [place], [id number] 10/20/2023 20:59:08 10/20/19 24 10/20/2023 MICRO SCOPI C FINDI NGS casts 0-2 Hyalin e lpf negati ve Not Available [address] [place], [id number] 10/20/2023 20:59:08 10/20/19 24 10/20/2023 MICRO SCOPI C FINDI NGS C S indicated? No Not Available [address] [place], [address] 10/20/2023 20:59:08 10/20/19 24 10/21/2023 BLOOD CULTU RE ( AGE => 10 YRS) blood culture ( age => 10 yrs) Blood Cultu re ( Age => 10 Yrs) NO GROWT H 24 HOURS Not Available [address] [place], [address] 10/21/2023 19:48:30 10/20/19 24 10/22/2023 BLOOD CULTU RE ( AGE => 10 YRS) blood culture ( age => 10 yrs) Blood Cultu re ( Age => 10 Yrs) NO GROWT H 48 HOURS Not Available [address] [place], [address] 10/22/2023 19:50:52 10/20/19 24 10/23/2023 BLOOD CULTU RE ( AGE => 10 YRS) blood culture ( age => 10 yrs) Blood Cultu re ( Age => 10 Yrs) NO GROWT H 72 HOURS Not Available [address] [place], [address] 10/23/2023 19:49:23 10/20/19 24 10/24/2023 BLOOD CULTU RE ( AGE => 10 YRS) blood culture ( age => 10 yrs) Blood Cultu re ( Age => 10 Yrs) NO GROWT H 96 HOURS Not Available [address] [place], [address] 10/24/2023 19:47:26 10/20/19 24 10/25/2023 BLOOD CULTU RE ( AGE => 10 YRS) blood culture ( age => 10 yrs) Blood Cultu re ( Age => 10 Yrs) NO GROWT H 120 HOURS Not Available [address] [place], [address] 10/25/2023 19:50:03 10/21/19 24 10/21/2023 LIVER PANEL total protein 6.2 g/dL 6.4-8. 2 low Not Available [address] [place], [address] 10/21/2023 07:27:36 10/21/19 24 10/21/2023 LIVER PANEL albumin 2.5 g/dL 3.4-5. 0 low Not Available [address] [place], [address] 10/21/2023 07:27:36 10/21/19 24 10/21/2023 LIVER PANEL bilirubin, total 4.97 mg/dL 0.2-1. 0 high Not Available [address] [place], [address] 10/21/2023 07:27:36 10/21/19 24 10/21/2023 LIVER PANEL alk phos 191 U/L 46-116 high Not Available Erin thomas [address] [place], [address] 10/21/2023 07:27:36 10/21/19 24 10/21/2023 LIVER PANEL AST 109 U/L 15-37 high Not Available [facility] [address] [place], [address] 10/21/2023 07:27:36 10/21/19 24 10/21/2023 LIVER PANEL ALT 151 U/L 16-63 high Not Available [facility] [address] [place], [address] 10/21/2023 07:27:36 10/21/19 24 10/21/2023 LIVER PANEL bilirubin, conjugated 4.3 mg/dL 0.0-0. 2 high Not Available [address] [place], [address] 10/21/2023 07:27:36 10/21/19 24 10/21/2023 BASIC METAB OLIC PANEL calcium 8.6 mg/dL 8.5-10 .1 normal Not Available [address] [place], [address] 10/21/2023 07:27:36 10/21/19 24 10/21/2023 BASIC METAB OLIC PANEL glucose 201 mg/dL 74-106 high Not Available [facility] [address] [place], [address] 10/21/2023 07:27:36 10/21/19 24 10/21/2023 BASIC METAB OLIC PANEL BUN 24 mg/dL 7-18 high Not Available [facility] [address] [place], [address] 10/21/2023 07:27:36 10/21/19 24 10/21/2023 BASIC METAB OLIC PANEL creatinine 1.4 mg/dL 0.70-1 .30 high Not Available [address] [place], [address] 10/21/2023 07:27:36 10/21/1910/21/2023 BASIC METAB OLIC PANEL estimated GFR 53.40 mL/min /1.73m 2 The eGFR is calcu lated from a serum creat inine using the CKD-E PI 2020 equat ion. Other varia bles requi red for the equat ion are gende r and age; this equat ion does not inclu de a race coeff icien t. This equat ion has simil ar overa ll perfo rmanc e to previ ous equat ions excep t value s may diffe r, in parti cular , in patie nts with highe r value s of eGFR and young er-ag ed adult s. Not Available [address] [place], [address] 10/21/2023 07:27:36 10/21/1910/21/2023 BASIC METAB OLIC PANEL sodium 138 mmol/ L 136-14 5 normal Not Available [address] [place], [address] 10/21/2023 07:27:36 10/21/1910/21/2023 BASIC METAB OLIC PANEL potassium 4.4 mmol/ L 3.5-5. 1 normal Not Available [address] [place], [address] 10/21/2023 07:27:36 10/21/1910/21/2023 BASIC METAB OLIC PANEL chloride 104 mmol/ L 98-107 normal Not Available [address] [place], [address] 10/21/2023 07:27:36 10/21/19 24 10/21/2023 BASIC METAB OLIC PANEL CO2 22.5 mmol/ L 21.0-3 2.0 normal Not Available [address] [place], [address] 10/21/2023 07:27:36 10/21/19 24 10/21/2023 BASIC METAB OLIC PANEL anion gap 11.5 mmol/ L 3-11 high Not Available [address] [place], [address] 10/21/2023 07:27:36 10/21/19 24 10/21/2023 LIPAS E lipase 12 U/L 16-77 low Not Available Radha [facility] [address] [place], [address] 10/21/2023 07:27:37 10/21/19 24 10/21/2023 COMPL ETE BLOOD COUNT W/DIF F WBC 20.28 10_3/ uL 4.4-10 .8 high Not Available [address] [place], [address] 10/21/2023 07:51:41 10/21/19 24 10/21/2023 COMPL ETE BLOOD COUNT W/DIF F RBC 3.73 10_6/ uL 4.36-5 .78 low Not Available [address] [place], [address] 10/21/2023 07:51:41 10/21/19 24 10/21/2023 COMPL ETE BLOOD COUNT W/DIF F HGB 11.3 g/dL 13.5-1 7.5 low Not Available [address] [place], [address] 10/21/2023 07:51:41 10/21/19 24 10/21/2023 COMPL ETE BLOOD COUNT W/DIF F HCT 34.1 % 40.0-5 0.0 low Not Available [address] [place], [address] 10/21/2023 07:51:41 10/21/19 24 10/21/2023 COMPL ETE BLOOD COUNT W/DIF F MCV 91 fL 80-95 normal Not Available [facility] [address] [place], [address] 10/21/2023 07:51:41 10/21/19 24 10/21/2023 COMPL ETE BLOOD COUNT W/DIF F MCH 30.3 pg 27.0-3 3.0 normal Not Available [address] [place], [address] 10/21/2023 07:51:41 10/21/19 24 10/21/2023 COMPL ETE BLOOD COUNT W/DIF F MCHC 33.1 % 32.0-3 6.0 normal Not Available [address] [place], [address] 10/21/2023 07:51:41 10/21/19 24 10/21/2023 COMPL ETE BLOOD COUNT W/DIF F RDW 13.7 % 11.8-1 4.1 normal Not Available [address] [place], [address] 10/21/2023 07:51:41 10/21/19 24 10/21/2023 COMPL ETE BLOOD COUNT W/DIF F platelet count 720 10_3/ uL 130-40 0 high Plate let count verif ied by smear estim ate. Not Available [address] [place], [address] 10/21/2023 07:51:41 10/21/1910/21/2023 COMPL ETE BLOOD COUNT W/DIF F MPV 10.5 fL 8.0-11 .0 normal Not Available [address] [place], [address] 10/21/2023 07:51:41 10/21/19 24 10/21/2023 COMPL ETE BLOOD COUNT W/DIF F neutrophils % 88.1 % Not Available [address] [place], [address] 10/21/2023 07:51:41 10/21/19 24 10/21/2023 COMPL ETE BLOOD COUNT W/DIF F lymphocytes % 3.8 % Not Available [address] [place], [address] 10/21/2023 07:51:41 10/21/19 24 10/21/2023 COMPL ETE BLOOD COUNT W/DIF F monocytes % 7.3 % Not Available [address] [place], [address] 10/21/2023 07:51:41 10/21/1910/21/2023 COMPL ETE BLOOD COUNT W/DIF F eosinophils % 0.0 % Not Available [address] [place], [address] 10/21/2023 07:51:41 10/21/19 24 10/21/2023 COMPL ETE BLOOD COUNT W/DIF F basophils % 0.3 % Not Available [address] [place], [address] 10/21/2023 07:51:41 10/21/19 24 10/21/2023 COMPL ETE BLOOD COUNT W/DIF F immature grans % 0.5 % Not Available [address] [place], [address] 10/21/2023 07:51:41 10/21/19 24 10/21/2023 COMPL ETE BLOOD COUNT W/DIF F nucleated RBC 0.0 % 0.0-0. 3 normal Not Available [address] [place], [address] 10/21/2023 07:51:41 10/21/19 24 10/21/2023 COMPL ETE BLOOD COUNT W/DIF F absolute neutrophil count 17.87 10_3/ uL 1.2-6. 7 high Not Available [address] [place], [address] 10/21/2023 07:51:41 10/21/19 24 10/21/2023 COMPL ETE BLOOD COUNT W/DIF F absolute lymphocyte count 0.77 10_3/ uL 1.2-3. 4 low Not Available [address] [place], [address] 10/21/2023 07:51:41 10/21/19 24 10/21/2023 COMPL ETE BLOOD COUNT W/DIF F absolute monocyte count 1.48 10_3/ uL 0.1-0. 8 high Not Available [address] [place], [address] 10/21/2023 07:51:41 10/21/19 24 10/21/2023 COMPL ETE BLOOD COUNT W/DIF F absolute eosinophil count 0.00 10_3/ uL 0.0-0. 7 normal Not Available [address] [place], [address] 10/21/2023 07:51:41 10/21/19 24 10/21/2023 COMPL ETE BLOOD COUNT W/DIF F absolute basophil count 0.06 10_3/ uL 0.0-0. 2 normal Not Available [address] [place], [address] 10/21/2023 07:51:41 10/21/1910/21/2023 LAB ADD ON TEST lab add on test DONE Not Available Amy gilbert [address] [place], [address] 10/21/2023 12:05:58 10/21/19 24 10/21/2023 MAGNE SIUM magnesium 2.0 mg/dL 1.8-2. 4 normal Not Available [address] [place], [address] 10/21/2023 12:17:59 10/21/1910/21/2023 NT-MS OBNP nt-probnp 1547 pg/mL <300 high NT-pr oBNP value s <300 pg/mL have a 98% negat andres predi ctive value for exclu ding acute conge stive heart failu re (CHF) . NT-pr oBNP value s >450 pg/mL are consi stent with CHF in adult s <50 years of age. A diagn ostic cut-o ff of 900 pg/mL has been sugge sted in adult s >50 years of age in the absen ce of renal failu re. A cut-o ff of 1200 pg/mL for patie nts with an eGFR less than 60 yield s a diagn ostic sensi tivit y and speci ficit y of 89% and 72% for acute conge stive failu re. NOTE: Supra -phys iolog ic doses of Bioti n(B7) may cause false negat andres resul ts. Not Available [address] [place], [address] 10/21/2023 12:17:59 10/21/19 24 10/21/2023 HEMOG LOBIN A1C hemoglobin A1C 6.7 % <5.7 high Refer ence Range s <5.7 Christal l 5.7-6 .4% Predi abete s 6.5% or great er Diagn ostic for diabe josie (if confi rmed) Refer ences : 1. Ameri can Diabe josie Assoc iatio n. Clas sific ation and Diagn osis of Diabe josie. Diabe josie Care 2019 Feb;4 2(Sup pleme nt 1):S1 3-s28 . Not Available [address] [place], [address] 10/21/2023 13:06:03 10/22/19 24 10/22/2023 COMPL ETE BLOOD COUNT NO DIFF WBC 12.10 10_3/ uL 4.4-10 .8 high Not Available [address] [place], [address] 10/22/2023 08:37:31 10/22/19 24 10/22/2023 COMPL ETE BLOOD COUNT NO DIFF RBC 3.49 10_6/ uL 4.36-5 .78 low Not Available [address] [place], [address] 10/22/2023 08:37:31 10/22/19 24 10/22/2023 COMPL ETE BLOOD COUNT NO DIFF HGB 10.4 g/dL 13.5-1 7.5 low Not Available [address] [place], [address] 10/22/2023 08:37:31 10/22/19 24 10/22/2023 COMPL ETE BLOOD COUNT NO DIFF HCT 32.6 % 40.0-5 0.0 low Not Available [address] [place], [address] 10/22/2023 08:37:31 10/22/19 24 10/22/2023 COMPL ETE BLOOD COUNT NO DIFF MCV 93 fL 80-95 normal Not Available Radha light [address] [place], [address] 10/22/2023 08:37:31 10/22/19 24 10/22/2023 COMPL ETE BLOOD COUNT NO DIFF MCH 29.8 pg 27.0-3 3.0 normal Not Available [address] [place], [address] 10/22/2023 08:37:31 10/22/19 24 10/22/2023 COMPL ETE BLOOD COUNT NO DIFF MCHC 31.9 % 32.0-3 6.0 low Not Available [address] [place], [address] 10/22/2023 08:37:31 10/22/19 24 10/22/2023 COMPL ETE BLOOD COUNT NO DIFF RDW 13.8 % 11.8-1 4.1 normal Not Available [address] [place], [address] 10/22/2023 08:37:31 10/22/19 24 10/22/2023 COMPL ETE BLOOD COUNT NO DIFF platelet count 450 10_3/ uL 130-40 0 high Not Available [address] [place], [address] 10/22/2023 08:37:31 10/22/19 24 10/22/2023 COMPL ETE BLOOD COUNT NO DIFF MPV 11.2 fL 8.0-11 .0 high Not Available [address] [place], [address] 10/22/2023 08:37:31 10/22/19 24 10/22/2023 LIVER PANEL total protein 6.3 g/dL 6.4-8. 2 low Not Available [address] [place], [address] 10/22/2023 09:29:46 10/22/19 24 10/22/2023 LIVER PANEL albumin 2.4 g/dL 3.4-5. 0 low Not Available [address] [place], [address] 10/22/2023 09:29:46 10/22/19 24 10/22/2023 LIVER PANEL bilirubin, total 2.80 mg/dL 0.2-1. 0 high Not Available [address] [place], [address] 10/22/2023 09:29:46 10/22/19 24 10/22/2023 LIVER PANEL alk phos 167 U/L 46-116 high Not Available [address] [place], [address] 10/22/2023 09:29:46 10/22/19 24 10/22/2023 LIVER PANEL AST 72 U/L 15-37 high Not Available Radha [address] [place], [address] 10/22/2023 09:29:46 10/22/19 24 10/22/2023 LIVER PANEL ALT 118 U/L 16-63 high Not Available Radha [facility] [address] [place], [address] 10/22/2023 09:29:46 10/22/19 24 10/22/2023 LIVER PANEL bilirubin, conjugated 2.3 mg/dL 0.0-0. 2 high Not Available [address] [place], [address] 10/22/2023 09:29:46 10/22/19 24 10/22/2023 BASIC METAB OLIC PANEL calcium 8.5 mg/dL 8.5-10 .1 normal Not Available [address] [place], [address] 10/22/2023 09:04:42 10/22/19 24 10/22/2023 BASIC METAB OLIC PANEL glucose 162 mg/dL 74-106 high Not Available Radha [facility] [address] [place], [address] 10/22/2023 09:04:42 10/22/19 24 10/22/2023 BASIC METAB OLIC PANEL BUN 22 mg/dL 7-18 high Not Available Radha [facility] [address] [place], [address] 10/22/2023 09:04:42 10/22/19 24 10/22/2023 BASIC METAB OLIC PANEL creatinine 1.4 mg/dL 0.70-1 .30 high Not Available [address] [place], [address] 10/22/2023 09:04:42 10/22/19 24 10/22/2023 BASIC METAB OLIC PANEL estimated GFR 53.40 mL/min /1.73m 2 The eGFR is calcu lated from a serum creat inine using the CKD-E PI 2020 equat ion. Other varia bles requi red for the equat ion are gende r and age; this equat ion does not inclu de a race coeff icien t. This equat ion has simil ar overa ll perfo rmanc e to previ ous equat ions excep t value s may diffe r, in parti cular , in patie nts with highe r value s of eGFR and young er-ag ed adult s. Not Available [address] [place], [address] 10/22/2023 09:04:42 10/22/19 24 10/22/2023 BASIC METAB OLIC PANEL sodium 137 mmol/ L 136-14 5 normal Not Available [address] [place], [address] 10/22/2023 09:04:42 10/22/19 24 10/22/2023 BASIC METAB OLIC PANEL potassium 4.3 mmol/ L 3.5-5. 1 normal Not Available [address] [place], [address] 10/22/2023 09:04:42 10/22/19 24 10/22/2023 BASIC METAB OLIC PANEL chloride 103 mmol/ L 98-107 normal Not Available [address] [place], [address] 10/22/2023 09:04:42 10/22/19 24 10/22/2023 BASIC METAB OLIC PANEL CO2 25.7 mmol/ L 21.0-3 2.0 normal Not Available [address] [place], [address] 10/22/2023 09:04:42 10/22/19 24 10/22/2023 BASIC METAB OLIC PANEL anion gap 8.3 mmol/ L 3-11 normal Not Available [address] [place], [address] 10/22/2023 09:04:42 10/22/19 24 10/22/2023 BASIC METAB OLIC PANEL calcium 8.5 mg/dL 8.5-10 .1 normal Not Available [address] [place], [address] 10/22/2023 09:29:47 10/22/19 24 10/22/2023 BASIC METAB OLIC PANEL glucose 162 mg/dL 74-106 high Not Available [facility] [address] [place], [address] 10/22/2023 09:29:47 10/22/19 24 10/22/2023 BASIC METAB OLIC PANEL BUN 22 mg/dL 7-18 high Not Available Radha light [address] [place], [address] 10/22/2023 09:29:47 10/22/19 24 10/22/2023 BASIC METAB OLIC PANEL creatinine 1.4 mg/dL 0.70-1 .30 high Not Available [address] [place], [address] 10/22/2023 09:29:47 10/22/19 24 10/22/2023 BASIC METAB OLIC PANEL estimated GFR 53.40 mL/min /1.73m 2 The eGFR is calcu lated from a serum creat inine using the CKD-E PI 2020 equat ion. Other varia bles requi red for the equat ion are gende r and age; this equat ion does not inclu de a race coeff icien t. This equat ion has simil ar overa ll perfo rmanc e to previ ous equat ions excep t value s may diffe r, in parti cular , in patie nts with highe r value s of eGFR and young er-ag ed adult s. Not Available [address] [place], [address] 10/22/2023 09:29:47 10/22/19 24 10/22/2023 BASIC METAB OLIC PANEL sodium 137 mmol/ L 136-14 5 normal Not Available [address] [place], [address] 10/22/2023 09:29:47 10/22/1910/22/2023 BASIC METAB OLIC PANEL potassium 4.3 mmol/ L 3.5-5. 1 normal Not Available [address] [place], [address] 10/22/2023 09:29:47 10/22/19 24 10/22/2023 BASIC METAB OLIC PANEL chloride 103 mmol/ L 98-107 normal Not Available [address] [place], [address] 10/22/2023 09:29:47 10/22/19 24 10/22/2023 BASIC METAB OLIC PANEL CO2 25.7 mmol/ L 21.0-3 2.0 normal Not Available [address] [place], [address] 10/22/2023 09:29:47 10/22/19 24 10/22/2023 BASIC METAB OLIC PANEL anion gap 8.3 mmol/ L 3-11 normal Not Available [address] [place], [address] 10/22/2023 09:29:47 10/23/19 24 10/23/2023 COMPL ETE BLOOD COUNT NO DIFF WBC 10.43 10_3/ uL 4.4-10 .8 normal Not Available [address] [place], [address] 10/23/2023 06:47:31 10/23/19 24 10/23/2023 COMPL ETE BLOOD COUNT NO DIFF RBC 3.33 10_6/ uL 4.36-5 .78 low Not Available [address] [place], [address] 10/23/2023 06:47:31 10/23/19 24 10/23/2023 COMPL ETE BLOOD COUNT NO DIFF HGB 9.8 g/dL 13.5-1 7.5 low Not Available [address] [place], [address] 10/23/2023 06:47:31 10/23/19 24 10/23/2023 COMPL ETE BLOOD COUNT NO DIFF HCT 30.7 % 40.0-5 0.0 low Not Available [address] [place], [address] 10/23/2023 06:47:31 10/23/19 24 10/23/2023 COMPL ETE BLOOD COUNT NO DIFF MCV 92 fL 80-95 normal Not Available Radha [address] [place], [address] 10/23/2023 06:47:31 10/23/19 24 10/23/2023 COMPL ETE BLOOD COUNT NO DIFF MCH 29.4 pg 27.0-3 3.0 normal Not Available [address] [place], [address] 10/23/2023 06:47:31 10/23/19 24 10/23/2023 COMPL ETE BLOOD COUNT NO DIFF MCHC 31.9 % 32.0-3 6.0 low Not Available [address] [place], [address] 10/23/2023 06:47:31 10/23/19 24 10/23/2023 COMPL ETE BLOOD COUNT NO DIFF RDW 13.7 % 11.8-1 4.1 normal Not Available [address] [place], [address] 10/23/2023 06:47:31 10/23/19 24 10/23/2023 COMPL ETE BLOOD COUNT NO DIFF platelet count 666 10_3/ uL 130-40 0 high Not Available [address] [place], [address] 10/23/2023 06:47:31 10/23/19 24 10/23/2023 COMPL ETE BLOOD COUNT NO DIFF MPV 10.6 fL 8.0-11 .0 normal Not Available [address] [place], [address] 10/23/2023 06:47:31 10/23/19 24 10/23/2023 LIVER PANEL total protein 6.2 g/dL 6.4-8. 2 low Not Available [address] [place], [address] 10/23/2023 06:50:32 10/23/1910/23/2023 LIVER PANEL albumin 2.3 g/dL 3.4-5. 0 low Not Available [address] [place], [address] 10/23/2023 06:50:32 10/23/19 24 10/23/2023 LIVER PANEL bilirubin, total 1.31 mg/dL 0.2-1. 0 high Not Available [address] [place], [address] 10/23/2023 06:50:32 10/23/19 24 10/23/2023 LIVER PANEL alk phos 159 U/L 46-116 high Not Available [address] [place], [address] 10/23/2023 06:50:32 10/23/19 24 10/23/2023 LIVER PANEL AST 52 U/L 15-37 high Not Available [facility] [address] [place], [address] 10/23/2023 06:50:32 10/23/19 24 10/23/2023 LIVER PANEL ALT 89 U/L 16-63 high Not Available Radha [facility] [address] [place], [address] 10/23/2023 06:50:32 10/23/19 24 10/23/2023 LIVER PANEL bilirubin, conjugated 1.1 mg/dL 0.0-0. 2 high Not Available [address] [place], [address] 10/23/2023 06:50:32 10/24/19 24 10/24/2023 COMPL ETE BLOOD COUNT NO DIFF WBC 10.94 10_3/ uL 4.4-10 .8 high Not Available [address] [place], [address] 10/24/2023 08:32:39 10/24/19 24 10/24/2023 COMPL ETE BLOOD COUNT NO DIFF RBC 3.70 10_6/ uL 4.36-5 .78 low Not Available [address] [place], [address] 10/24/2023 08:32:39 10/24/19 24 10/24/2023 COMPL ETE BLOOD COUNT NO DIFF HGB 11.0 g/dL 13.5-1 7.5 low Not Available [address] [place], [address] 10/24/2023 08:32:39 10/24/19 24 10/24/2023 COMPL ETE BLOOD COUNT NO DIFF HCT 33.9 % 40.0-5 0.0 low Not Available [address] [place], [address] 10/24/2023 08:32:39 10/24/19 24 10/24/2023 COMPL ETE BLOOD COUNT NO DIFF MCV 92 fL 80-95 normal Not Available [facility] [address] [place], [address] 10/24/2023 08:32:39 10/24/19 24 10/24/2023 COMPL ETE BLOOD COUNT NO DIFF MCH 29.7 pg 27.0-3 3.0 normal Not Available [address] [place], [address] 10/24/2023 08:32:39 10/24/19 24 10/24/2023 COMPL ETE BLOOD COUNT NO DIFF MCHC 32.4 % 32.0-3 6.0 normal Not Available [address] [place], [address] 10/24/2023 08:32:39 10/24/19 24 10/24/2023 COMPL ETE BLOOD COUNT NO DIFF RDW 13.8 % 11.8-1 4.1 normal Not Available [address] [place], [address] 10/24/2023 08:32:39 10/24/19 24 10/24/2023 COMPL ETE BLOOD COUNT NO DIFF platelet count 781 10_3/ uL 130-40 0 panic high Criti khari value repor cong to and readb ack from [SHARRI WEATHERS] at 0827 10/23 by LAB.P ASA Plate let count verif ied by smear estim ate. Not Available [address] [place], [address] 10/24/2023 08:32:39 10/24/19 24 10/24/2023 COMPL ETE BLOOD COUNT NO DIFF MPV 10.4 fL 8.0-11 .0 normal Not Available [address] [place], [address] 10/24/2023 08:32:39 10/24/19 24 10/24/2023 LAB ADD ON TEST lab add on test DONE Not Available [facility] [address] [place], [address] 10/24/2023 11:36:27 10/24/19 24 10/24/2023 C-ARABELLA CTIVE PROTE IN C-reactive protein 7.96 mg/dL <or=0. 5 high Not Available [address] [place], [address] 10/24/2023 11:51:30 11/29/1911/29/2023 hemog lobin A1C, fingdavion rsedna k hemoglobin A1C 6.1 % <5.7 Not Available [facility] [address] [facility], [place], [address], 11/25/2023 09:22:49 12/18/1912/18/2023 HEMOG LOBIN A1C hemoglobin A1C 6.2 % <5.7 high Refer ence Range s <5.7 Christal l 5.7-6 .4% Predi abete s 6.5% or great er Diagn ostic for diabe josie (if confi rmed) Refer ences : 1. Ameri can Diabe josie [employer] i[facility] n. Clas sific ation and Diagn osis of Diabe josie. Diabe josie Care 2018; 2(Sup pleme nt 1):S1 3-s28 . Not Available [address] [place], [address] 12/18/2023 18:32:48 12/18/1912/18/2023 TSH TSH 0.90 uIU/m L 0.36-3 .74 normal NOTE: Supra -phys iolog ic doses of Bioti n(B7) may cause false negat andres resul ts. Not Available [address] [place], [address] 12/18/2023 18:32:46 12/18/1912/18/2023 LIPID 2 cholesterol 149 mg/dL <200 Not Available Amy gilbert [address] [place], [address] 12/18/2023 18:32:46 12/18/1912/18/2023 LIPID 2 triglyceride 145 mg/dL <150 Not Available [address] [place], [address] 12/18/2023 18:32:46 12/18/19 24 12/18/2023 LIPID 2 HDL cholesterol 44 mg/dL 40-60 Not Available Ila ferrara[address] [place], [address] 12/18/2023 18:32:46 12/18/19 24 12/18/2023 LIPID 2 calculated LDL 76 mg/dL <100 Natio nal Shruthi stero l Educa tion Progr am (NCEP -ATPI II) class ifica tions : Shruthi stero l <200 mg/dL Mark able Shruthi stero l 200-2 39 mg/dL Borde rline High Shruthi stero l >or=2 40 mg/dL High HDL <40 mg/dL Low HDL >or=6 0 mg/dL High LDL <100 mg/dL Optim al LDL 100-1 29 mg/dL Near Optim al/Ab ove Optim al LDL 130-1 59 mg/dL Borde rline High LDL 160-1 89 mg/dL High LDL >or=1 90 mg/dL Very High *The above refer ence range is for adult s 18 years or older . Not Available [address] [place], [address] 12/18/2023 18:32:46 12/18/19 24 12/18/2023 COMPL ETE BLOOD COUNT W/DIF F WBC 9.50 10_3/ uL 4.4-10 .8 normal Not Available [address] [place], [address] 12/18/2023 15:18:08 12/18/19 24 12/18/2023 COMPL ETE BLOOD COUNT W/DIF F RBC 4.83 10_6/ uL 4.36-5 .78 normal Not Available [address] [place], [address] 12/18/2023 15:18:08 12/18/19 24 12/18/2023 COMPL ETE BLOOD COUNT W/DIF F HGB 14.0 g/dL 13.5-1 7.5 normal Not Available [address] [place], [address] 12/18/2023 15:18:08 12/18/19 24 12/18/2023 COMPL ETE BLOOD COUNT W/DIF F HCT 43.3 % 40.0-5 0.0 normal Not Available [address] [place], [address] 12/18/2023 15:18:08 12/18/19 24 12/18/2023 COMPL ETE BLOOD COUNT W/DIF F MCV 90 fL 80-95 normal Not Available Radha [facility] [address] [place], [address] 12/18/2023 15:18:08 12/18/19 24 12/18/2023 COMPL ETE BLOOD COUNT W/DIF F MCH 29.0 pg 27.0-3 3.0 normal Not Available [address] [place], [address] 12/18/2023 15:18:08 12/18/19 24 12/18/2023 COMPL ETE BLOOD COUNT W/DIF F MCHC 32.3 % 32.0-3 6.0 normal Not Available [address] [place], [address] 12/18/2023 15:18:08 12/18/19 24 12/18/2023 COMPL ETE BLOOD COUNT W/DIF F RDW 13.3 % 11.8-1 4.1 normal Not Available [address] [place], [address] 12/18/2023 15:18:08 12/18/19 24 12/18/2023 COMPL ETE BLOOD COUNT W/DIF F platelet count 934 10_3/ uL 130-40 0 panic high Criti khari value repor cong to and readb ack from ANNA MARIE BARBA , MANAGER PROGRESS[employer]ARE at 1515 12/17 by LAB.M CGD Not Available [address] [place], [address] 12/18/2023 15:18:08 12/18/19 24 12/18/2023 COMPL ETE BLOOD COUNT W/DIF F MPV 9.6 fL 8.0-11 .0 normal Not Available [address] [place], [address] 12/18/2023 15:18:08 12/18/19 24 12/18/2023 COMPL ETE BLOOD COUNT W/DIF F neutrophils % 66.6 % Not Available Amy gilbert [address], [place], [address] 12/18/2023 15:18:08 12/18/19 24 12/18/2023 COMPL ETE BLOOD COUNT W/DIF F lymphocytes % 20.0 % Not Available [address] [place], [address] 12/18/2023 15:18:08 12/18/19 24 12/18/2023 COMPL ETE BLOOD COUNT W/DIF F monocytes % 6.5 % Not Available [address] [place], [address] 12/18/2023 15:18:08 12/18/19 24 12/18/2023 COMPL ETE BLOOD COUNT W/DIF F eosinophils % 4.9 % Not Available [address] [place], [address] 12/18/2023 15:18:08 12/18/19 24 12/18/2023 COMPL ETE BLOOD COUNT W/DIF F basophils % 1.7 % Not Available [address] [place], [address] 12/18/2023 15:18:08 12/18/19 24 12/18/2023 COMPL ETE BLOOD COUNT W/DIF F immature grans % 0.3 % Not Available [address] [place], [address] 12/18/2023 15:18:08 12/18/19 24 12/18/2023 COMPL ETE BLOOD COUNT W/DIF F nucleated RBC 0.0 % 0.0-0. 3 normal Not Available [address] [place], [address] 12/18/2023 15:18:08 12/18/19 24 12/18/2023 COMPL ETE BLOOD COUNT W/DIF F absolute neutrophil count 6.32 10_3/ uL 1.2-6. 7 normal Not Available [address] [facility] [place], [address] 12/18/2023 15:18:08 12/18/19 24 12/18/2023 COMPL ETE BLOOD COUNT W/DIF F absolute lymphocyte count 1.90 10_3/ uL 1.2-3. 4 normal Not Available [address] [place], [address] 12/18/2023 15:18:08 12/18/19 24 12/18/2023 COMPL ETE BLOOD COUNT W/DIF F absolute monocyte count 0.62 10_3/ uL 0.1-0. 8 normal Not Available [address] [place], [address] 12/18/2023 15:18:08 12/18/19 24 12/18/2023 COMPL ETE BLOOD COUNT W/DIF F absolute eosinophil count 0.47 10_3/ uL 0.0-0. 7 normal Not Available [address] [place], [address] 12/18/2023 15:18:08 12/18/19 24 12/18/2023 COMPL ETE BLOOD COUNT W/DIF F absolute basophil count 0.16 10_3/ uL 0.0-0. 2 normal Not Available [address] [place], [address] 12/18/2023 15:18:08 12/18/19 24 12/18/2023 COMPL ETE BLOOD COUNT W/DIF F diff comment PLT Morph Review ed Not Available [address] [place], [address] 12/18/2023 15:18:08 12/18/19 24 12/18/2023 COMPL ETE BLOOD COUNT W/DIF F RBC morphology Normal Not Available [address] [place], [address] 12/18/2023 15:18:08 12/18/19 24 12/18/2023 TROPO FLORINDA I troponin I 6 NG/L <or=76 An eleva cong/a bnorm al tropo florinda value above 51ng/ L for Femal e and above 76ng/ L for Male( which is the 99th perce ntile cutof f of a christal l, healt hy refer ence popul ation ) must be inter prete d in the silvestre xt of the clini khari prese ntati on. Clini khari and labor atory corre latio n is requi red to evalu ate for an acute myoca rdial infar ction . The resul ts of this assay can be false ly lower ed due to the consu mptio n of Bioti n (Macy min B7). Not Available [address] [place], [address] 12/18/2023 15:12:14 12/18/19 24 12/18/2023 MAGNE SIUM magnesium 2.0 mg/dL 1.8-2. 4 normal Not Available [address] [place], [address] 12/18/2023 15:12:14 12/18/19 24 12/18/2023 COMPR EHENS ANDRES METAB OLIC PANEL calcium 9.5 mg/dL 8.5-10 .1 normal Not Available [address] [facility] [place], [address] 12/18/2023 15:12:13 12/18/19 24 12/18/2023 COMPR EHENS ANDRES METAB OLIC PANEL glucose 146 mg/dL 74-106 high Not Available Radha [address] [facility] [place], [address] 12/18/2023 15:12:13 12/18/19 24 12/18/2023 COMPR EHENS ANDRES METAB OLIC PANEL BUN 16 mg/dL 7-18 normal Not Available [address] [facility] [place], [address] 12/18/2023 15:12:13 12/18/19 24 12/18/2023 COMPR EHENS ANDRES METAB OLIC PANEL creatinine 1.1 mg/dL 0.70-1 .30 normal Not Available [address] [place] [facility] [place], [address] 12/18/2023 15:12:13 12/18/19 24 12/18/2023 COMPR EHENS ANDRES METAB OLIC PANEL estimated GFR 70.88 mL/min /1.73M 2 The eGFR is calcu lated from a serum creat inine using the CKD-E PI 2020 equat ion. Other varia bles requi red for the equat ion are gende r and age; this equat ion does not inclu de a race coeff icien t. This equat ion has simil ar overa ll perfo rmanc e to previ ous equat ions excep t value s may diffe r, in parti cular , in patie nts with highe r value s of eGFR and young er-ag ed adult s. Not Available [address] [place], [address] 12/18/2023 15:12:13 12/18/19 24 12/18/2023 COMPR EHENS ANDRES METAB OLIC PANEL total protein 7.7 g/dL 6.4-8. 2 normal Not Available [address] [place], [address] 12/18/2023 15:12:13 12/18/19 24 12/18/2023 COMPR EHENS ANDRES METAB OLIC PANEL albumin 3.6 g/dL 3.4-5. 0 normal Not Available [address] [place], [address] 12/18/2023 15:12:13 12/18/19 24 12/18/2023 COMPR EHENS ANDRES METAB OLIC PANEL bilirubin, total 0.36 mg/dL 0.2-1. 0 normal Not Available [address] [place], [address] 12/18/2023 15:12:13 12/18/19 24 12/18/2023 COMPR EHENS ANDRES METAB OLIC PANEL alk phos 82 U/L 46-116 normal Not Available [address] [place], [address] 12/18/2023 15:12:13 12/18/19 24 12/18/2023 COMPR EHENS ANDRES METAB OLIC PANEL sodium 144 mmol/ L 136-14 5 normal Not Available [address] [place], [address] 12/18/2023 15:12:13 12/18/1912/18/2023 COMPR EHENS ANDRES METAB OLIC PANEL potassium 4.9 mmol/ L 3.5-5. 1 normal Not Available [address] [place], [address] 12/18/2023 15:12:13 12/18/19 24 12/18/2023 COMPR EHENS ANDRES METAB OLIC PANEL chloride 108 mmol/ L 98-107 high Not Available [address] [place], [address] 12/18/2023 15:12:13 12/18/19 24 12/18/2023 COMPR EHENS ANDRES METAB OLIC PANEL CO2 29.8 mmol/ L 21.0-3 2.0 normal Not Available [address] [place], [address] 12/18/2023 15:12:13 12/18/19 24 12/18/2023 COMPR EHENS ANDRES METAB OLIC PANEL anion gap 6.2 mmol/ L 3-11 normal Not Available [address] [place], [address] 12/18/2023 15:12:13 12/18/19 24 12/18/2023 COMPR EHENS ANDRES METAB OLIC PANEL AST 21 U/L 15-37 normal Not Available Rad[facility] [address] [place], [address] 12/18/2023 15:12:13 12/18/19 24 12/18/2023 COMPR EHENS ANDRES METAB OLIC PANEL ALT 29 U/L 16-63 normal Not Available Radha [address] [place], [address] 12/18/2023 15:12:13 12/19/19 24 12/20/2023 PATH CONSU LT ( ORDER ) path consult ( order) AGREE WITH JULEE BRAXTON WITH TREND S OVER TIME WELL CLINI KHARI FINDI NGS. Test perfo rmed or refer red by ANDI Wolfe MD [facility] [address], [place] [address] Not Available [address] [place], [address] 12/20/2023 11:04:37 12/19/19 24 12/19/2023 COMPL ETE BLOOD COUNT W/DIF F WBC 9.90 10_3/ uL 4.4-10 .8 normal Not Available [address] [place], [address] 12/19/2023 07:57:36 12/19/1912/19/2023 COMPL ETE BLOOD COUNT W/DIF F RBC 4.38 10_6/ uL 4.36-5 .78 normal Not Available [address] [place], [address] 12/19/2023 07:57:36 12/19/1912/19/2023 COMPL ETE BLOOD COUNT W/DIF F HGB 12.8 g/dL 13.5-1 7.5 low Not Available [address] [place], [address] 12/19/2023 07:57:36 12/19/1912/19/2023 COMPL ETE BLOOD COUNT W/DIF F HCT 39.5 % 40.0-5 0.0 low Not Available [address] [place], [address] 12/19/2023 07:57:36 12/19/1912/19/2023 COMPL ETE BLOOD COUNT W/DIF F MCV 90 fL 80-95 normal Not Available [address] [place], [address] 12/19/2023 07:57:36 12/19/1912/19/2023 COMPL ETE BLOOD COUNT W/DIF F MCH 29.2 pg 27.0-3 3.0 normal Not Available [address] [place], [address] 12/19/2023 07:57:36 12/19/1912/19/2023 COMPL ETE BLOOD COUNT W/DIF F MCHC 32.4 % 32.0-3 6.0 normal Not Available [address] [place], [address] 12/19/2023 07:57:36 12/19/1912/19/2023 COMPL ETE BLOOD COUNT W/DIF F RDW 13.4 % 11.8-1 4.1 normal Not Available [address] [place], [address] 12/19/2023 07:57:36 12/19/1912/19/2023 COMPL ETE BLOOD COUNT W/DIF F platelet count 818 10_3/ uL 130-40 0 panic high Criti khari value repor cong to and mona rasconk from Scotty canales RN at 0753 12/18 by MAI.Emanuel DASILVA Not Available [address] [place], [address] 12/19/2023 07:57:36 12/19/1912/19/2023 COMPL ETE BLOOD COUNT W/DIF F MPV 9.7 fL 8.0-11 .0 normal Not Available [address] [place], [address] 12/19/2023 07:57:36 12/19/1912/19/2023 COMPL ETE BLOOD COUNT W/DIF F neutrophils % 64.4 % Not Available [address] [place], [address] 12/19/2023 07:57:36 12/19/1912/19/2023 COMPL ETE BLOOD COUNT W/DIF F lymphocytes % 20.7 % Not Available [address] [place], [address] 12/19/2023 07:57:36 12/19/1912/19/2023 COMPL ETE BLOOD COUNT W/DIF F monocytes % 7.3 % Not Available [address] [place], [address] 12/19/2023 07:57:36 12/19/1912/19/2023 COMPL ETE BLOOD COUNT W/DIF F eosinophils % 5.4 % Not Available [address] [place], [address] 12/19/2023 07:57:36 12/19/1912/19/2023 COMPL ETE BLOOD COUNT W/DIF F basophils % 1.8 % Not Available [address] [place], [address] 12/19/2023 07:57:36 12/19/1912/19/2023 COMPL ETE BLOOD COUNT W/DIF F immature grans % 0.4 % Not Available [facility] [address] [place], [address] 12/19/2023 07:57:36 12/19/1912/19/2023 COMPL ETE BLOOD COUNT W/DIF F nucleated RBC 0.0 % 0.0-0. 3 normal Not Available [address] [place], [address] 12/19/2023 07:57:36 12/19/1912/19/2023 COMPL ETE BLOOD COUNT W/DIF F absolute neutrophil count 6.38 10_3/ uL 1.2-6. 7 normal Not Available [address] [place], [address] 12/19/2023 07:57:36 12/19/1912/19/2023 COMPL ETE BLOOD COUNT W/DIF F absolute lymphocyte count 2.05 10_3/ uL 1.2-3. 4 normal Not Available [address] [place], [address] 12/19/2023 07:57:36 12/19/1912/19/2023 COMPL ETE BLOOD COUNT W/DIF F absolute monocyte count 0.72 10_3/ uL 0.1-0. 8 normal Not Available [address] [place], [address] 12/19/2023 07:57:36 12/19/1912/19/2023 COMPL ETE BLOOD COUNT W/DIF F absolute eosinophil count 0.53 10_3/ uL 0.0-0. 7 normal Not Available [address] [place], [address] 12/19/2023 07:57:36 12/19/1912/19/2023 COMPL ETE BLOOD COUNT W/DIF F absolute basophil count 0.18 10_3/ uL 0.0-0. 2 normal Not Available [address] [place], [address] 12/19/2023 07:57:36 12/19/1912/19/2023 COMPL ETE BLOOD COUNT W/DIF F diff comment PLT Morph Review ed Not Available [address] [place], [address] 12/19/2023 07:57:36 12/19/1912/19/2023 BASIC METAB OLIC PANEL calcium 9.0 mg/dL 8.5-10 .1 normal Not Available [address] [place], [address] 12/19/2023 07:26:33 12/19/1912/19/2023 BASIC METAB OLIC PANEL glucose 123 mg/dL 74-106 high Not Available [facility] [address] [place], [address] 12/19/2023 07:26:33 12/19/1912/19/2023 BASIC METAB OLIC PANEL BUN 14 mg/dL 7-18 normal Not Available [facility] [address] [place], [address] 12/19/2023 07:26:33 12/19/1912/19/2023 BASIC METAB OLIC PANEL creatinine 1.0 mg/dL 0.70-1 .30 normal Not Available [address] [place], [address] 12/19/2023 07:26:33 12/19/1912/19/2023 BASIC METAB OLIC PANEL estimated GFR 79.47 mL/min /1.73M 2 The eGFR is calcu lated from a serum creat inine using the CKD-E PI 2020 equat ion. Other varia bles requi red for the equat ion are gende r and age; this equat ion does not inclu de a race coeff icien t. This equat ion has simil ar overa ll perfo rmanc e to previ ous equat ions excep t value s may diffe r, in parti cular , in patie nts with highe r value s of eGFR and young er-ag ed adult s. Not Available [address] [place], [address] 12/19/2023 07:26:33 12/19/19 24 12/19/2023 BASIC METAB OLIC PANEL sodium 144 mmol/ L 136-14 5 normal Not Available [address] [place], [address] 12/19/2023 07:26:33 12/19/19 24 12/19/2023 BASIC METAB OLIC PANEL potassium 4.3 mmol/ L 3.5-5. 1 normal Not Available [address] [place], [address] 12/19/2023 07:26:33 12/19/19 24 12/19/2023 BASIC METAB OLIC PANEL chloride 107 mmol/ L 98-107 normal Not Available [address] [place], [address] 12/19/2023 07:26:33 12/19/19 24 12/19/2023 BASIC METAB OLIC PANEL CO2 28.4 mmol/ L 21.0-3 2.0 normal Not Available [address] [place], [address] 12/19/2023 07:26:33 12/19/19 24 12/19/2023 BASIC METAB OLIC PANEL anion gap 8.6 mmol/ L 3-11 normal Not Available [address] [place], [address] 12/19/2023 07:26:33 12/20/19 24 12/20/2023 BASIC METAB OLIC PANEL calcium 9.3 mg/dL 8.5-10 .1 normal Not Available [address] [place], [address] 12/20/2023 07:38:58 12/20/19 24 12/20/2023 BASIC METAB OLIC PANEL glucose 122 mg/dL 74-106 high Not Available [facility] [address] [place], [address] 12/20/2023 07:38:58 12/20/19 24 12/20/2023 BASIC METAB OLIC PANEL BUN 13 mg/dL 7-18 normal Not Available [facility] [address] [place], [address] 12/20/2023 07:38:58 12/20/19 24 12/20/2023 BASIC METAB OLIC PANEL creatinine 1.1 mg/dL 0.70-1 .30 normal Not Available [address] [place], [address] 12/20/2023 07:38:58 12/20/19 24 12/20/2023 BASIC METAB OLIC PANEL estimated GFR 70.88 mL/min /1.73M 2 The eGFR is calcu lated from a serum creat inine using the CKD-E PI 2020 equat ion. Other varia bles requi red for the equat ion are gende r and age; this equat ion does not inclu de a race coeff icien t. This equat ion has simil ar overa ll perfo rmanc e to previ ous equat ions excep t value s may diffe r, in parti cular , in patie nts with highe r value s of eGFR and young er-ag ed adult s. Not Available [address] [place], [address] 12/20/2023 07:38:58 12/20/19 24 12/20/2023 BASIC METAB OLIC PANEL sodium 143 mmol/ L 136-14 5 normal Not Available [address] [place], [address] 12/20/2023 07:38:58 12/20/1912/20/2023 BASIC METAB OLIC PANEL potassium 4.0 mmol/ L 3.5-5. 1 normal Not Available [address] [place], [address] 12/20/2023 07:38:58 12/20/19 24 12/20/2023 BASIC METAB OLIC PANEL chloride 106 mmol/ L 98-107 normal Not Available [address] [place], [address] 12/20/2023 07:38:58 12/20/1912/20/2023 BASIC METAB OLIC PANEL CO2 27.6 mmol/ L 21.0-3 2.0 normal Not Available [address] [place], [address] 12/20/2023 07:38:58 12/20/19 24 12/20/2023 BASIC METAB OLIC PANEL anion gap 9.4 mmol/ L 3-11 normal Not Available [address] [place], [address] 12/20/2023 07:38:58 12/20/19 24 12/20/2023 COMPL ETE BLOOD COUNT W/DIF F WBC 10.13 10_3/ uL 4.4-10 .8 normal Not Available [address] [place], [address] 12/20/2023 07:36:58 12/20/19 24 12/20/2023 COMPL ETE BLOOD COUNT W/DIF F RBC 4.83 10_6/ uL 4.36-5 .78 normal Not Available [address] [place], [address] 12/20/2023 07:36:58 12/20/19 24 12/20/2023 COMPL ETE BLOOD COUNT W/DIF F HGB 14.1 g/dL 13.5-1 7.5 normal Not Available [address] [place], [address] 12/20/2023 07:36:58 12/20/19 24 12/20/2023 COMPL ETE BLOOD COUNT W/DIF F HCT 42.9 % 40.0-5 0.0 normal Not Available [address] [place], [address] 12/20/2023 07:36:58 12/20/19 24 12/20/2023 COMPL ETE BLOOD COUNT W/DIF F MCV 89 fL 80-95 normal Not Available [address] [place], [address] 12/20/2023 07:36:58 12/20/19 24 12/20/2023 COMPL ETE BLOOD COUNT W/DIF F MCH 29.2 pg 27.0-3 3.0 normal Not Available [address] [place], [address] 12/20/2023 07:36:58 12/20/19 24 12/20/2023 COMPL ETE BLOOD COUNT W/DIF F MCHC 32.9 % 32.0-3 6.0 normal Not Available [address] [place], [address] 12/20/2023 07:36:58 12/20/19 24 12/20/2023 COMPL ETE BLOOD COUNT W/DIF F RDW 13.4 % 11.8-1 4.1 normal Not Available [address] [place], [address] 12/20/2023 07:36:58 12/20/1912/20/2023 COMPL ETE BLOOD COUNT W/DIF F platelet count 956 10_3/ uL 130-40 0 panic high Criti khari value repor cong to and readb ack from Sarah mccloud nurse at 0730 12/19 by LAB.P ASA verif ied by smear estim ate Not Available [address] [place], [address] 12/20/2023 07:36:58 12/20/19 24 12/20/2023 COMPL ETE BLOOD COUNT W/DIF F MPV 9.8 fL 8.0-11 .0 normal Not Available [address] [place], [address] 12/20/2023 07:36:58 12/20/19 24 12/20/2023 COMPL ETE BLOOD COUNT W/DIF F neutrophils % 63.6 % Not Available [address] [place], [address] 12/20/2023 07:36:58 12/20/19 24 12/20/2023 COMPL ETE BLOOD COUNT W/DIF F lymphocytes % 22.0 % Not Available [address] [place], [address] 12/20/2023 07:36:58 12/20/19 24 12/20/2023 COMPL ETE BLOOD COUNT W/DIF F monocytes % 6.8 % Not Available [address] [place], [address] 12/20/2023 07:36:58 12/20/19 24 12/20/2023 COMPL ETE BLOOD COUNT W/DIF F eosinophils % 5.4 % Not Available [address] [place], [address] 12/20/2023 07:36:58 12/20/19 24 12/20/2023 COMPL ETE BLOOD COUNT W/DIF F basophils % 1.9 % Not Available [address] [place], [address] 12/20/2023 07:36:58 12/20/19 24 12/20/2023 COMPL ETE BLOOD COUNT W/DIF F immature grans % 0.3 % Not Available [address] [place], [address] 12/20/2023 07:36:58 12/20/19 24 12/20/2023 COMPL ETE BLOOD COUNT W/DIF F nucleated RBC 0.0 % 0.0-0. 3 normal Not Available [address] [place], [address] 12/20/2023 07:36:58 12/20/19 24 12/20/2023 COMPL ETE BLOOD COUNT W/DIF F absolute neutrophil count 6.44 10_3/ uL 1.2-6. 7 normal Not Available [address] [place], [address] 12/20/2023 07:36:58 12/20/19 24 12/20/2023 COMPL ETE BLOOD COUNT W/DIF F absolute lymphocyte count 2.23 10_3/ uL 1.2-3. 4 normal Not Available [address] [place], [address] 12/20/2023 07:36:58 12/20/19 24 12/20/2023 COMPL ETE BLOOD COUNT W/DIF F absolute monocyte count 0.69 10_3/ uL 0.1-0. 8 normal Not Available [address] [place], [address] 12/20/2023 07:36:58 12/20/19 24 12/20/2023 COMPL ETE BLOOD COUNT W/DIF F absolute eosinophil count 0.55 10_3/ uL 0.0-0. 7 normal Not Available [address] [place], [address] 12/20/2023 07:36:58 12/20/19 24 12/20/2023 COMPL ETE BLOOD COUNT W/DIF F absolute basophil count 0.19 10_3/ uL 0.0-0. 2 normal Not Available [address] [place], [address] 12/20/2023 07:36:58 06/20/19 24 06/20/2023 MRI, lumba r spine , w/o contr ast Patien t Name: Radha Galeano Unit #: [id number] Loc: DI Orderi ng Provid er: Iker Caal Accoun t #: [id number] Status : REG CLI Primar y Care Provid er: Maria Ines Wan M.D. Date of Exam : Sex: M Admiss ion Date: : 1950 Age: 72 Exam(s ) MR LUMBAR SPINE WO EXAM: MR LUMBAR SPINE WO CLINIC AL HISTOR Y: ACUTE LOW BACK PAIN, M54.50 , HX L4-5 MISAEL CTOMY, ACUTE ON CHRONI C PAIN. TECHNI QUE: Multip lanar multis equenc e MRI of the Lumbar spine was perfor med. COMPAR KANNAN: FINDIN GS: Bones: The last interv ertebr al disc space is design ated the L5/S1 level for the number ing purpos e of this examin ation. The verteb ral body height s are well mainta ined. Alignm ent: Unrema rkable . The marrow signal charac terist ics are unrema rkable . Cord: The conus tip ends at the T12 level. It is of normal size and signal intens ity. T12-L1 : Mild disc bulgin g. Small endpla te osteop hytes. Mild bilate ral neural forami nal narrow ing. No focal disc hernia tion is presen t. No centra l spinal canal stenos is. L1-2:M ild concen tric disc bulgin g. Facet degene rative change s. Modera te bilate ral neural forami nal narrow ing. No focal disc hernia tion is presen t. No centra l spinal canal stenos is. L2-3: Modera te loss of disc height . Broad- based disc bulgin g. facet degene rative change s. No focal disc hernia tion is presen t. Mild centra l spinal canal stenos is.Sev ere bilate ral neural forami nal stenos is. L3-4: L4 misael ctomy. No broad- based disc bulgin g. Severe facet joint degene rative change s. Right- sided facet cyst, measur ing 12 x 6 millim eters. No focal disc hernia tion is presen t. Modera te centra l canal stenos is. Severe bilate ral neural forami nal narrow ing. L4-5:L 4 misael ctomy. Promin ent facet degene rative change s. Mild spondy lolist hesis. Mild disc bulgin g. No focal disc hernia tion is presen t. No centra l spinal canal stenos is.Sev ere right and modera te left neural forami nal narrow ing. L5-S1: Minima l disc bulgin g. No focal disc hernia tion is presen t. Facet degene rative change s. Modera te bilate ral neural forami nal narrow ing. Mild centra l canal stenos is. The visual ized SI joints and sacrum are unrema rkable . Soft tissue s: The parasp inal soft tissue s are unrema rkable . IMPRES HUNTER: Multil evel degene rative disc change s and facet degene rative change s. Post surgic al change s at L4-5. Findin gs greate st at L3-4 where there is modera te centra l canal stenos is and severe bilate ral neural forami nal narrow ing. No focal disc hernia tion. DATA REPOSI TORY: Cristhian chan By: Iker Caal CC: ------ ------ ------ ------ ------ ------ ------ ------ ------ ------ ------ ------ - Dictat ed By: Jerry Del Real [id number] Transc ribed By: Sharon Agustin [id number] This is privil eged, confid ential inform ation intend ed only for the provid er named. Any use or distri bution by any person other than this provid er is strict ly prohib ited. If you receiv e this report in error, please notify us immedi ately at and return the origin al report to us at the addres s above. Thank- you. [email or web address] [facility] [address] [place], [address] 07/16/2023 14:57:48 10/20/19 24 10/20/2023 x-ray imagi ng repor t Patien t Name: Radha Galeano Unit #: [id number] Loc: ER Orderi ng Provid er: Lexie Vaz Accoun t #: [id number] Status : REG ER Primar y Care Provid er: Maria Ines Wan M.D. Date of Exam : Sex: M Admiss ion Date: : 1950 Age: 72 Exam(s ) XR PORTAB LE CHEST AP EXAM: XR PORTAB LE CHEST AP CLINIC AL HISTOR Y: fever. TECHNI QUE: 2D digita l imagin g was perfor med. COMPAR KANNAN: No exams were availa ble for compar kannan FINDIN GS: Single AP portab le view. Less than optima l inspir atory effort . Heart size is upper normal . The medias tinum is not widene d. There is platel sindi atelec tasis mild infilt rate in left lung base. Visual ized right lung is clear. No obviou s pleura l effusi ons. No pulmon antonia edema. IMPRES HUNTER: Platel sindi atelec tasis versus infilt rate in the lower left lung field. Recomm end nonpor table PA and latera l views when clinic ally possib le. DATA REPOSI TORY: RADIAT ION DOSE DELIVE RED: Ordere d By: Lexie Vaz CC: ------ ------ ------ ------ ------ ------ ------ ------ ------ ------ ------ ------ - Dictat ed By: Italo Craft M.D. 173 173 Transc ribed By: Venancio BAL,Jaden matosd 1732 This is privil eged, confid ential inform ation intend ed only for the provid er named. Any use or distri bution by any person other than this provid er is strict ly prohib ited. If you receiv e this report in error, please notify us immedi ately at and return the origin al report to us at the addres s above. Thank- you. pat [facility] [address], [place], [address] 10/26/2023 06:35:03 10/20/19 24 10/20/2023 CT imagi ng repor t Patien t Name: Radha Galeano Unit #: [id number] Loc: ER Orderi ng Provid er: Myron aburto,Lexie MERRILL Accoun t #: [id number] Status : REG ER Primar y Care Provid er: Maria Ines Wan M.D. Date of Exam : Sex: M : 1950 Age: 72 Exam(s ) a CT:CT abdome n pelvis w Exam(s ) CT ABDOME N PELVIS W EXAM: CT ABDOME N PELVIS W CLINIC AL HISTOR Y: RUQ pain, fever. TECHNI QUE: Imagin g Protoc ol: Axial comput ed tomogr aphy images with velazquez l and sagitt al reform atted images were create d and review ed CONTRA ST MATERI AL: Intrav enous: Omnipa que-35 0 100cc Oral: None COMPAR KANNAN: CT CT ABDOME N PELVIS W from 2019 FINDIN GS: VISUAL IZED LUNG BASES: Some inters titial diseas e is noted lung bases. There is some atelec tasis in the lingul ar segmen t of the left lung as well as in the left lower lobe, this corres pondin g to what is seen on chest x-ray earlie r today. There are no pleura l effusi ons. No perica rdial effusi on.. ABDOME N: There is no ascite s. LIVER: There are no focal hepati c lesion s eviden t. No dilate d intrah epatic ducts. GALLBL ADDER/ BILIAR Y: No gallbl adder is grossl y disten ded and edemat ous. There is streak ing around the gallbl adder. There are no obviou s radiop aque gallst ones within the gallbl adder lumen. Very subtle densit y noted in the region of the cystic duct (serie s 3/imag e 37) CBD is not dilate d. There are no dilate d intrah epatic ducts. PANCRE : No eviden ce of pancre atic head mass nor mass elsewh ere in the pancre as and no dilata tion of the pancre atic duct. No peripa ncreat ic fluid. SPLEEN : Spleen size is normal . There is again noted a lobula cong hypode nsity within the spleen which exhibi ts minima l if any signif icant change from CT scan of 2019 and is probab ly a benign cyst. Spleni c and portal veins are patent . ADRENA LS: There are no signif icant adrena l masses . KIDNEY S:No cysts eviden t. No solid renal masses . No calcul i nor hydron ephros is.. ABDOMI NAL AORTA: The abdomi nal aorta is athero sclero tic and there is a fusifo rm infrar enal abdomi nal aortic aneury sm below the level the inferi or mesent smith artery takeof f point, this exhibi ting maximu m diamet er of 3.2 cm. The common iliac arteri es are calcif ied and minima lly promin ent. LYMPH NODES: There is no retrop eriton eal nor paraao rtic adenop athy. ABDOMI NAL WALL: No eviden ce of signif icant anteri or abdomi nal wall nor inguin al hernia . There is some thicke rosey of the skin over both sides of anteri or abdomi nal wall and mild subcut aneous streak ing. Possib ly relate d to inject ion sites versus is cellul itis. There is no draina ble subcut aneous fluid collec tion. There is a left inguin al hernia which contai ns some fluid but no bowel loops. There is eviden ce of previo us surger y at this level. In additi on, there is abnorm al fluid within the ileo psoas bursa extend ing down almost to the level of the lesser trocha nter of the left hip. GI: The hepati c flexur e of the colon exhibi ts no thicke rosey streak ing. I suspec t that this is relate d to the adjace nt phlegm a davida findin gs in the abnorm al gallbl adder. PELVIS : GI: The append ix is surgic ally absent .Sigmo id divert iculi but no eviden ce of obviou s acute sigmoi d divert iculit is. LYMPH NODES: There is no intrap elvic nor inguin al adenop athy. REPROD UCTIVE : Prosta te size normal . Semina l vesicl es unrema rkable . URINAR Y BLADDE R: No calcul i nor obviou s masses eviden t OSSEOU S: No acute fractu res. Eviden ce of previo us surger y in the lower lumbar spine and there is an elemen t of jeimy listhe sis of L4 upon L5 by approx imatel y 1 cm. No pars defect s at this level. IMPRES HUNTER: 1. There is gross disten tion of the gallbl adder with perich olecys tic streak ing. There are no obviou s radiop aque calcul i within the gallbl adder lumen, realiz ed limita tions of CT as oppose d to ultras ound for detect ing the presen ce of gallst ones in the gallbl adder lumen. The CBD is not dilate d and there are no dilate d intrah epatic ducts. Suspec t culpri t acute pathol ogy to be at the level of the cystic duct where there is a very small hyperd ensity noted, possib ly a small obstru cting calcul us. Recomm end ultras ound at this time. 2. There is abnorm al appear ance of the wall of the adjace nt hepati c flexur e of the colon. This is most probab ly second antonia to the adjace nt gallbl adder pathol ogy, as oppose d to intrin sic large bowel pathol ogy.. 3. Append ix is surgic ally absent . 4. 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 Other findin gs as above Report called by myself to ER follow ing comple tion of this study 2023 RADIAT ION DOSE DELIVE RED: 826.93 mGy.cm Total DLP DATA REPOSI TORY: All CT scans at this facili ty are submit cong to the [facility] al Radiol ogy Data Regist ry (NRDR) [...] to clinic al indica tion); or iterat andres recons tructi on. 900- 025: Total DLP = 0.00 mGy-cm Ordere d By: Myron aburto,Lexie MERRILL CC: ------ ------ ------ ------ ------ ------ ------ ------ ------ ------ ------ ------ ---- Dictat ed By: Italo Craft M.D. 1936 Transc ribed By: Venancio BAL,Jaden angelo 1936 This is privil eged, confid ential inform ation intend ed only for the provid er named. Any use or distri bution by any person other than this provid er is strict ly prohib ited. If you receiv e this report in error, please notify us immedi clarely at and return the origin al report to us at the addres s above. Thank- you. pat [facility] [address] [place], [address] 10/26/2023 06:35:04 10/21/19 24 10/21/2023 vrad repor t Patien t Name: Radha Galeano Emanuel Unit #: [id number] Loc: ICU Orderi ng Provid er: Accoun t #: [id number] Status : ADM NIECY Primar y Care Provid er: Maria Ines Wan M.D. Date of Exam : Sex: M : 1950 Age: 72 Exam(s ) PROCED URE INFORM ATION: Exam: XR Chest Exam date and time: 10/21/19 11:49 AM Age: 72 years old Clinic al indica tion: Other: Decrea sed sat TECHNI QUE: Imagin g protoc ol: Radiol ogic exam of the chest. Views: 1 view. COMPAR KANNAN: 1. CR CHEST 2 VIEWS PA,LAT 018 5:44 AM 2. CR XR PORTAB LE CHEST AP 10/20/19 5:14 PM FINDIN GS: Lungs: Low lung volume s which limits assess ment of the lung bases. Linear left basila r atelec tasis or scarri ng. Pleura l spaces : Unrema rkable . No pleura l effusi on. No pneumo thorax . Heart/ Medias tinum: Stable cardio medias tinal contou rs. Bones/ joints : Degene rative osseou s change s. IMPRES HUNTER: Hypoin flated lungs with linear left basila r atelec tasis or scarri ng. Dictat ed and Jessica steve d by: Kvng López MD. Orderi ng:Quinn Astorga MD Access ion#[id number] Ordere d By: CC: ------ ------ ------ ------ ------ ------ ------ ------ ------ ------ ------ ------ ---- Dictat ed By: Report s vrad 1149 1224 Transc ribed By: Chapis Guerra 1149 This is privil eged, confid ential inform ation intend ed only for the provid er named. Any use or distri bution by any person other than this provid er is strict ly prohib ited. If you receiv e this report in error, please notify us rajesh hamilton at and return the origin al report to us at the addres s above. Thank- you. [place] [id number] [place], [address] 10/26/2023 06:35:04 10/21/19 24 10/21/2023 x-ray imagi ng repor t Patien t Name: Radha Galeano Unit #: [id number] Loc: ICU Orderi ng Provid er: Ildefonso Bennett DO Accoun t #: [id number] Status : ADM NIECY Primar y Care Provid er: Maria Ines Wan M.D. Date of Exam : Sex: M Admiss ion Date: : 1950 Age: 72 Exam(s ) XR PORTAB LE CHEST AP EXAM: XR PORTAB LE CHEST AP CLINIC AL HISTOR Y: decres ed sat. TECHNI QUE: 2D digita l imagin g was perfor med. COMPAR KANNAN: CR XR PORTAB LE CHEST AP from 2023 FINDIN GS: Single AP portab le view. Subopt imal inspir atory effort . Heart size is upper normal . The medias tinum is not widene d. There is persis tent atelec tasis in the left lung base, unchan ged from yester day. There appear to be increa sing markin gs in the right suprah ilar region which may indica te some develo ping infilt rate in the right upper lobe or possib ly superi or segmen t right lower lobe. There are no pleura l effusi ons. No pulmon antonia edema. No pneumo thorax . No fractu res. IMPRES HUNTER: Persis tent atelec tasis- mild infilt rate left lung base. Possib le develo ping infilt rate right upper lung field. Recomm end nonpor table PA and latera l views when clinic ally possib le, or altern ativel y CT scan. I note that yester day's abdomi nal CT scan reveal ed signif icant gallbl adder pathol ogy. See that separa te report . DATA REPOSI TORY: RADIAT ION DOSE DELIVE RED: Ordere d By: Ildefonso Bennett DO CC: ------ ------ ------ ------ ------ ------ ------ ------ ------ ------ ------ ------ - Dictat ed By: Italo Craft M.D. 1347 1347 Transc ribed By: Venancio BAL,Jaden petey 1347 This is privil eged, confid ential inform ation intend ed only for the provid er named. Any use or distri bution by any person other than this provid er is strict ly prohib ited. If you receiv e this report in error, please notify us immedi joy at [phone] and return the origin al report to us at the addres s above. Thank- you. [facility] [address], [place], [address] 10/26/2023 06:35:05 10/22/19 24 10/22/2023 ultra sound imagi ng repor t Patiestefany t Name: Radha Galeano Unit #: [id number] Loc: ICU Orderi ng Provid er: Ildefonso Bennett DO Accoun t #: [id number] Status : ADM IN Primar y Care Provid er: Maria Ines Wan M.D. Date of Exam : Sex: M Admiss ion Date: : 1950 Age: 72 ------ ------ --- APPROV ED REPORT ------ ------ -- EXAM: Compre hensiv e 2D, Doplala r, and color- flow Echoca rdiogr am Robertaen t Locati on: In-Pat ient Room/B ed: [id number] Sonogr apher: Maribell Kuhn , RDCS (AE) Indica tions: Severe DM Other Inform ation Study Qualit y: Fair. Techni sonia chan study due to body habitu s, inabil ity to positi on patien t, exam done supine bedsid e, post operat andres dressi ngs. Conclu hunter Techni sonia limite d study Normal left ventri cular wall thickn ess and chambe r size. Ejecti on fracti on is 55%. Could not accura tely assess region al wall motion Right ventri gregorio was not well-v isuali zed Atria are normal in size Aortic valve is mildly sclero tic and trilea flet Mild mitral annula r calcif icatio n Wall motion Left Ventri gregorio Techni sonia limite d parast ernal imagin g. The overal l left ventri cular systol ic functi on appear s normal . Region al wall motion is not well visual ized but grossl y normal . Techni sonia limite d subcos jennifer imagin g. LVEF is 55%. Right Ventri gregorio Right ventri gregorio is not well visual ized. Right ventri cular systol ic functi on could not be assess ed. Atria The left atrium size is normal . The right atrium size is normal . Techni sonia limite d subcos jennifer imagin g. Aortic Valve The Aortic valve is milldl y sclero tic. Aortic valve is trilea flet. There is no aortic valvul ar stenos is. No aortic regurg itatio n is presen t. Mitral Valve Mild mitral annula r calcif icatio n. No eviden ce of mitral valve stenos is. Trace to mild mitral regurg itatio n. Tricus pid Valve The tricus pid valve is normal in struct ure. There is no tricus pid valve stenos is. Trace tricus pid regurg itatio n. Unable to assess PA pressu re. Pulmon ic Valve The pulmon antonia valve is normal in struct ure. There is no pulmon ic valvul ar stenos is. Trace pulmon ic regurg itatio n. Great Vessel s The aortic root is normal in size. Ascend ing aorta is not well visual ized. The IVC was not visual ized. Techni sonia limite d subcos jennifer imagin g. Perica rdium Techni sonia limite d, abdomi nal bandag e, recent surger y. 2D Dimens ions Ao Root d 3.42 cm M: 3.1 - 3.7 Auto EF LV EDV A4C 110.6 mL LV EDV A2C 144.6 mL LV EDV BP 125.9 mL LV ESV A4C 48.9 mL LV ESV A2C 66.9 mL LV ESV BP 56.8 mL LVEF(% ) A4C 55.8 % LVEF(% ) A2C 53.7 % LVEF(% ) BP 54.9 % LV SV A4C 61.8 ml LV SV A2C 77.6 ml LV SV BP 69.1 ml LV CO A4C 4.6 L/min LV CO A2C 5.4 L/min LV CO BP 5.0 L/min HR A4C 73.90 BPM HR A2C 70.04 BPM LV EDV Index (BP) LA Volume LA Length A4C 5.8 cm LA Length A2C 6.1 cm LA Area A4C s 23.53 cm2 LA Area A2C s 18.46 cm2 LA Vol A4C A-L 81.45 mL LA Vol A2C A-L 47.37 mL LA Vol Biplan e A-L 63.9 mL LA Vol/BS A A4C A-L LA Vol/BS A A2C A-L LA Vol/BS A BP A-L 26.3 mL/m2 LA Vol A4C MOD 74.9 mL LA Vol A2C MOD 44.7 mL LA Vol BP MOD 59.4 mL RA Volume RA Area A4C 13.2 cm2 RA ESV A4C (A-L) 34.0mL RA Vol/BS A A4C A-L RA Length A4C 4.3 cm RA ESV A4C (MOD) 30.1mL LV Diasto logy MV E' medial 0.118 (>0.07 m/s) MV E Vmax 1.17 (0.4-1 .3 m/s) MV E/E' MED 9.90 (<14) MV A Vmax 1.00 (0.4-1 .3 m/s) MV E' latera l 0.137 (>0.1 m/s) E/A Ratio 1.2 MV E/E' LAT 8.54 (<14) MV E' Averag e 0.127 m/s MV E/E'(a verage ) 9.17 Aortic Valve AoV Vmax 1.18 m/s LVOT Vmax 0.92 m/s AoV Peak Grad 5.6 mmHg LVOT Peak Grad 3.4 mmHg AoV Area (Vmax) 2.77 cm2 LVOT VTI 0.215 m AoV VTI 0.298 m LVOT Mean Grad 2.0 mmHg AoV Mean Rachel. 0.87 m/s LVOT SV 76.29 mL AoV Mean Grad 3.4 mmHg LVOT Diam s 2.10 cm AoV Area (VTI) 2.56 cm2 AV Regurg Peak Gr. 5.59 mmHg Veloci ty Ratio 0.78 Mitral Valve MV DT 206 (160-2 40 msec) MV Vmax TIPS 1.00 m/s MV Mean Grad 2.1 (<2mmH g) MV VTI 0.319 m Pulmon antonia Valve PV Vmax 1.05 (0.5-1 .5 m/s) RVOT Vmax 0.83 m/s PV Peak Grad 4.4 mmHg RVOT Peak Gr. 2.8 mmHg PV Mean Rachel 0.80 m/s RVOT VTI 0.211 m PV Mean Grad 2.8 mmHg RVOT Mean Gr. 1.6 mmHg Tricus pid Valve TV S' 0.12 m/s Ordere d By: Ildefonso Bennett DO CC: ------ ------ ------ ------ ------ ------ ------ ------ ------ ------ ------ ------ - Dictat ed By: Melba Cordoba M.D. 1202 1225 Transc ribed By: Melba Cordoba MD 1202 This is privil eged, confid ential inform ation intend ed only for the provid er named. Any use or distri bution by any person other than this provid er is strict ly prohib ited. If you receiv e this report in error, please notify us immedi joy at [phone] and return the origin al report to us at the addres s above. Thank- you. pat [place] [id number] [facility] [place], [address] 10/26/2023 06:35:05 10/22/19 24 10/22/2023 MRI imagi ng repor t Patien t Name: Radha Galeano Unit #: [id number] Loc: ICU Orderi ng Provid er: Jose A facundoIldefonso Sheryl DO Accoun t #: [id number] Status : ADM IN Primar y Care Provid er: Maria Ines Wan M.D. Date of Exam : Sex: M Admiss ion Date: : 1950 Age: 72 Exam(s ) MR ABDOME N WO EXAM: MR ABDOME N WO CLINIC AL HISTOR Y: s/p open shruthi/ t kenzie 4 TECHNI QUE: Multip lanar multis equenc e MRI of the Abdome n was perfor med. COMPAR KANNAN: CT CHEST FOR PULMON ANTONIA EMBOLU S from [address] ABDOME N PELVIS W from [address] ABDOME N PELVIS W from 2023 US POCUS EXAM from 2023 US US ECHOCA RDIOGR AM from 2023 FINDIN GS: Lung bases: There is an infilt rate in the right lower lobe. Liver: No eviden ce of a hepati c mass. Pancre as: Unrema rkable . Gallbl adder and Bile Ducts: Status post cholec ystect karan. There is fluid seen in the gallbl adder fossa. Some of the fluid exhibi ts both hyperi ntense signal on T1 and T2 weight ed images . No focal fluid collec tion is seen to sugges t an absces s. There is no biliar y ductal dilata tion. No fillin g defect s are seen to sugges t a retain ed stone. Adrena ls: Unrema rkable . No eviden ce of an adrena l mass. Kidney s: The visual ized kidney s are unrema rkable . There is no eviden ce of obstru ctive uropat hy. Spleen : Stable hepati c lesion s. These may repres ent froylan iomas or cysts. The larges t measur es 4.8 cm. Bowel: There is divert iculos is of the colon. Aorta: Unrema rkable . Soft Tissue s: Unrema rkable . Bone: Unrema rkable . Lymph Nodes: Unrema rkable . IMPRES HUNTER: 1. Status post cholec ystect karan. No biliar y ductal dilata tion. No fillin g defect s are seen in the bile ducts to sugges t retain ed stone. 2. Comple x fluid collec tion seen in the gallbl adder fossa which may repres ent a hemato ma. No focal fluid collec tion is seen to sugges t an absces s. A CT scan of the abdome n should be consid ered for correl ation. DATA REPOSI TORY: Ordere d By: Ildefonso Bennett DO CC: ------ ------ ------ ------ ------ ------ ------ ------ ------ ------ ------ ------ - Dictat ed By: Bhaskar Siu M.D. 1256 1256 Transc ribed By: Bhaskar Siu 1256 This is privil eged, confid ential inform ation intend ed only for the provid er named. Any use or distri bution by any person other than this [facility] er is strict ly prohib ited. If you receiv e this report in error, please notify us immedi ately at and return the origin al report to us at the addres s above. Thank- you. pat [facility] [address], [place], [address] 10/26/2023 06:35:05 11/04/19 24 05/03/2020 XR, shoul alma rosa [...] imagi ng repor t Patien t Name: FroylanRadha juan Castellanos Unit #: [id number] Loc: ER Orderi ng Provid er: Nick Yo M.D. Accoun t #: [id number] Status : REG ER Primar [...] caroti d bifurc ations and proxim al application development intern al caroti d arteri es bilate rally. The amount of stenos is is estima cong at approx imatel y 50 percen t on the right side in 40 percen t on the left side. High slight ly higher up in the left application development intern al caroti d artery approx imatel y 1.5 cm above the bifurc ation there is also some eccent phan latera l wall plaque with approx imatel y 50 percen t narrow ing at this level. Above this level both application development intern al caroti d arteri es are somewh at tortuo us in the upper neck. There noted to be patent in the skull base-c arotid canals . Supervisor [employer] ior circul ation: Both verteb ral arteri [...] Brain W: Anteri or circul ation: Both application development intern al caroti d arteri es are patent in the skull base-c arotid canals as well as within the cavern ous sinuse s. The mcmahon of the intra cavern ous application development intern al caroti d arteri es are [...] aneury sms of these vessel s. Supervisor [employer] ior circul ation: Basila r artery is formed by both verteb ral arteri es at the skull base and ascend s with normal lumina l diamet er. Distal ly it gives off superi or cerebe llar arteri es and above this level termin ates as patent bilate ral electrocardiograph technician ior cerebr al arteri es. Above this level the basila r artery termin ates as patent bilate ral electrocardiograph technician ior cerebr al arteri es. There is no eviden ce of aneury sm at the tip of the basila r artery nor elsewh ere in the [place]. CT BRAIN: There is no [...] al mening eal enhanc ement. If clinic sherman gar follow -up MRI can be perfor med [...] to clinic al indica tion); or iterat andres recons tructi on. 1030-0 017: Total DLP = 0.00 mGy-cm Ordere d By: Nick Yo M.D. CC: ------ ------ ------ ------ ------ ------ ------ ------ ------ ------ ------ ------ ---- Dictat ed By: Italo Craft M.D. 1520 1520 Transc ribed By: Venancio BAL,Jaden petey 1520 This is privil eged, confid ential [...] the addres s above. Thank- you. INTERFACE [facility] [address], [place], [address] 12/18/2023 15:24:09 12/19/19 24 12/19/2023 ultra sound imagi ng repor t Patiestefany t Name: Radha Galeano Unit #: [id number] Loc: MS Orderi ng Provid er: HomerShoshana bailey ALEXY Accoun t #: [id number] Status : ADM IN Primar y Care Provid er: Maria Ines Wan M.D. Date of Exam : Sex: M Admiss ion Date: : 1950 Age: 73 ------ ------ --- APPROV ED REPORT ------ ------ -- EXAM: Compre hensiv e 2D, Dopple r, and color- flow Echoca rdiogr am Patiestefany t Locati on: In-Pat ient Room/B ed: 225 Sonogr apher: Maribellmindi Landryda , RDCS (AE) Indica tions: CVA Echo [...] - Dictat ed By: Melba Cordoba M.D. 1043 Transc ribed By: Melba Cordoba MD 1043 This is privil eged, confid ential inform [...] the addres s above. Thank- you. INTERFACE [facility] [address], [place], [address] 12/19/2023 10:51:18 12/19/19 24 12/19/2023 ultra sound imagi ng repor t Patiestefany t Name: Radha Galeano Unit #: [id number] Loc: MS Margy rahman Provid er: Shoshana Chang APRN Accashley t #: [id number] 02 Status : ADM IN Primar [...] common caroti d bulb and proxim al application development intern al caroti d artery . Veloci ty elevat ion: Mildly elevat ed systol ic veloci ty, less than 50 percen t stenos is. LEFT CAROTI D ARTERY : Plaque : None modera te calcif ied and noncal cified plaque at the common caroti d bulb and proxim al to mid application development intern al caroti d artery . Veloci [...] d bulbs and proxim al to mid application development intern al caroti d arteri es. Veloci ty elevat ions on the right consis tent with less than 50 percen t stenos is. Veloci ty elevat ions on the left consis tent with 50-69 percen t stenos is proxim al left application development intern al caroti d artery . Criter [...] l narrow ing. DATA REPOSI TORY: Cristhian chan By: Shoshana Chang APRN CC: ------ ------ ------ ------ ------ ------ ------ ------ ------ ------ ------ ------ - Dictat ed By: Jerry Del Real 1145 114 Transc ribed By: Sharon Agustin 1145 This is privil eged, confid ential inform [...] the addres s above. Thank- you. INTERFACE [facility] [address] [facility] [place], [address] 12/19/2023 11:50:30 12/19/1912/19/2023 MRI imagi ng repor t Nate t Name: Radha Galeano Unit #: [id number] Loc: MS Margy rahman Provid er: Shoshana Chang APRN Accoun t #: [id number] 02 Status : ADM IN Primar [...] 2023 FINDIN GS: Exam limite d by nate wolfe motion . VENTRI CLES AND EXTRA AXIAL [...] fluid. Vascul ature: Normal flow void. PITUIT ANTONIA GLAND: Unrema rkable . ORBITS : Unrema rkable . IMPRES HUNTER: Small area of restri cted diffus ion in the right side of the landon consis tent with acute or subacu te infarc t. DATA REPOSI TORY: Ordere d By: Shoshana Chang APRN CC: ------ ------ ------ ------ ------ ------ ------ ------ ------ ------ ------ ------ - Dictat ed By: Jerry Del Real 115 115 Transc ribed By: Sharon Agustin 115 This is privil eged, confid ential inform ation intend ed only for the provid er named. Any use or distri bution by any person other than this provid er is strict ly prohib ited. If you receiv e this report in error, please notify us immedi ately at [phone] and return the origin al report to us at the addres s above. Thank- you. INTERFACE [facility] [address], [place], [address] 12/19/2023 12:03:33 12/19/19 24 12/19/2023 CT imagi ng repor t Patien t Name: Radha Galeano Unit #: [id number] Loc: Orderi ng Provid er: Shoshana Chang APRN Accoun t #: [id number] 02 Status : ADM IN Primar y Care Provid er: Maria Ines Wan M.D. Date of Exam : Sex: M : 1950 Age: 73 Exam(s ) a CT:CT head wo Exam(s ) CT HEAD WO EXAM: CT HEAD WO CLINIC AL HISTOR Y: worsen ing CVA sympto ms. TECHNI QUE: Imagin g Protoc ol: Axial comput ed tomogr aphy images with velazquez l and sagitt al reform atted images [...] noninf used CT scan of the brain. Grabiel loredo, please note that MRI scan perfor med [...] to clinic al indica tion); or iterat andres recons tructi on. 1031-0 021: Total DLP = 0.00 mGy-cm Ordere d By: Shoshana Chang APRN CC: ------ ------ ------ ------ ------ ------ ------ ------ ------ ------ ------ ------ ---- Dictat ed By: Italo Craft M.D. 1650 Transc ribed By: Venancio BAL,Jaden angelo 1650 This is privil eged, confid ential [...] the addres s above. Thank- you. INTERFACE [facility] [address], [place], [address] 12/19/2023 16:56:31 12/20/19 24 12/20/2023 x-ray imagi ng repor t Patien t Name: Radha Galeanoisto lyn Castellanos Unit #: [id number] Loc: MS Orderi ng Provid er: Shoshana Chang APRN Accoun t #: [id number] Status : ADM IN Primar y Care Provid er: Maria Ines Wan M.D. Date of Exam : Sex: M Admiss ion Date: : 1950 Age: 73 Exam(s ) RF MODIFI ED SPEECH BA MAXO W EXAM: RF MODIFI ED SPEECH BA MAXO W CLINIC AL HISTOR Y: Speech pathol ogy therap y for dyspha reinaldo work-u p TECHNI QUE: Modifi ed barium maxo w was perfor med in conjun ction [...] the addres s above. Thank- you. INTERFACE [address] , [place], [address] 12/20/2023 13:58:05 Result Notes None recorded. Problems Name Problem SNOMED Code Status Onset Date Resolution Date Notes Provider Name and Address Organization Details Recorded Time Nicotine dependen ce 50655642 Completed 201006/12/2023 11/01/19 17 - Comments only - Lilli Packer MD - continui ng to have a cigar once in awhile - know this increase d his CAD risk Problem Code: Z87.891; Problem Code Type: ICD-10; Removal Reason: Has been nicotine free since 2019 Skinny Reza MA null, [place] - [facility] 14:57:43 Amputate d below knee 306116564 Active 200808/05/19 23 - Comments only - Lilli Packer MD - For which he is using his prosthet ic, no current concerns with it. Problem Code: Z89.519; Problem Code Type: ICD-10; Not Available [facility] 3 05:55:51 Osteomye litis 15078801 Active 2010 Problem Code: M86.9; Problem Code Type: ICD-10; Not Available [facility] 3 05:55:51 Spinal stenosis 55458714 Active 2010 Problem Code: M48.00; Problem Code Type: ICD-10; Not Available [facility] 3 05:55:51 Not for resuscit ation 741333221 Active 2013 Problem Code: Z66; Problem Code Type: ICD-10; Not Available [facility] 3 05:55:51 Polyneur opathy 83184994 Active 201408/05/19 23 - Comments only - [...] G62.9; Problem Code Type: ICD-10; Not Available [facility] 3 05:55:51 Hyperlip idemia 76259708 Active 201408/05/19 23 - Comments only - Lilli Packer MD - On Zetia, will check LFTs. Problem Code: E78.5; Problem Code Type: ICD-10; Not Available [facility] 3 05:55:51 Right foot drop 12974626347 9106 Active 2015 Problem Code: M21.371; Problem Code Type: ICD-10; Not Available [facility] 3 05:55:51 Hearing loss 32759164 Active 2015 Problem Code: H91.90; Problem Code Type: ICD-10; Not Available [facility] 3 05:55:52 Adult health examinat ion Active 201610/16/19 22 - Comments only - Lilli Packer MD - Jason would like a PSA checked Problem Code: Z00.00; Problem Code Type: ICD-10; Not Available [facility] 3 05:55:52 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 He is followin g closely with podiatry . Aware of the importan ce of gricelda ramos diabetic control. Problem Code: E11.621; Problem Code Type: ICD-10; Not Available [facility] 3 05:55:52 Disorder due to type 2 diabetes mellitus 707261157 Active 200801/18/20 22 - Comments only - Lilli Packer MD - Control still not at goal. A1c today 8.4, staying in the same range as the last few checks. Darrell chan trying to increase his insulin or add [...] E11.8; Problem Code Type: ICD-10; Not Available [facility] 3 05:55:52 Muscle pain 65654089 Active 2017 Problem Code: M79.1; Problem Code Type: ICD-10; Not Available [facility] 3 05:55:52 Vitamin D deficien cy 63361587 Active 2017 Problem Code: E55.9; Problem Code Type: ICD-10; Not Available [facility] 3 05:55:52 Incoordi nation 182502775 Active 201712/28/19 21 - Comments only - [...] R27.9; Problem Code Type: ICD-10; Not Available [facility] 3 05:55:52 Vitamin B deficien cy 35516211 Active 201701/18/20 22 - Comments only - Lilli Packer MD - , Recent vitamin B-12 level was appropri ate. We will double check with him that he is continui ng the monthly injectio ns. Problem Code: E53.8; Problem Code Type: ICD-10; Not Available [facility] 3 05:55:52 Localize d edema 163013341 Active 2017 Problem Code: R60.0; Problem Code Type: ICD-10; Not Available [facility] 3 05:55:53 Malaise 684187619 Active 2017 Problem Code: R53.81; Problem Code Type: ICD-10; Not Available [facility] 3 05:55:53 Amputate d toe 053145173 Active 201701/24/20 18 - Comments only - Allan Carbajal - Suggeste d him to undergo PT for his leg. Suggeste d that he may try a recumben t bike which would be in a more relaxed position . Problem Code: Z89.429; Problem Code Type: ICD-10; Not Available [facility] 3 05:55:53 Dysphagi a 40891673 Active 201809/19/19 19 - Comments only - Allan a Udupi - Stable at present. He feels comforta ble continui ng to monitor. Problem Code: R13.10; Problem Code Type: ICD-10; Not Available [facility] 3 05:55:53 Non-trau matic tendon rupture 858309637 Active 201801/03/20 19 - Comments only - Allan a Udupi - Orthoped ics advised him to undergo physical therapy. He complete d a session with physical therapy. Problem Code: M66.821; Problem Code Type: ICD-10; Not Available [facility] 3 05:55:53 Insomnia 276392500 Active 201801/03/20 19 - Comments only - Allan chacon Udupi - Stable on melatoni n and Tylenol PM. He will continue the same. Problem Code: G47.00; Problem Code Type: ICD-10; Not Available [facility] 3 05:55:54 Disorder of skin and/or subcutan eous tissue 19126973 Active 201804/28/19 23 - Comments only - Lilli Packer MD - , No current evidence of infectio n. Likely related to his prosthet ic. He is meeting with the prosthet ists today or tomorrow and will discuss with them. Problem Code: L98.9; Problem Code Type: ICD-10; Not Available [facility] 3 05:55:54 Abnormal weight gain 067939798 Active 2019 Problem Code: R63.5; Problem Code Type: ICD-10; Not Available [facility] 3 05:55:54 Epidermo id cyst of skin 340295722 Completed 201909/02/2019 08/19/19 20 - Comments only - Lina Michaels PA-C - Patient to continue on CLINDAMY KADI as RXd as manageme nt of acute infectio us process. As means of treating underlyi ng suspecte d sebaceou s cyst, however, will arrange for surgical consult at [facility] at next availabl e. F/U PRN Problem Code: L72.3; Problem Code Type: ICD-10; Not Available [facility] 3 05:55:54 Furuncle 765337696 Active 201903/23/19 21 - Comments only - [...] L02.92; Problem Code Type: ICD-10; Not Available [facility] 3 05:55:54 History of fall 981535869 Active 201908/05/19 23 - Comments only - [...] Z91.81; Problem Code Type: ICD-10; Not Available [facility] 3 05:55:54 Shoulder joint pain 581371393 Active 202001/18/20 22 - Comments only - Lilli Packer MD - For which he does follow with orthoped ics. They have told him there is not a lot more they can do at this juncture . He has had shoulder surgery bilhennaa lldalila. At this point he continue s to [...] M25.519; Problem Code Type: ICD-10; Not Available [facility] 3 05:55:55 Altered bowel function 61646819 Active 202110/16/19 - Comments only - Lilli Packer MD [...] R19.4; Problem Code Type: ICD-10; Not Available [facility] 3 05:55:55 Musculos keletal symptom 67113886 Active 202101/18/20 - Comments only - Lilli Packer MD - , Could be combinat ion of his radiculo al and decondit ioning. He does think to be a good idea to meet with PT again. Referral made. Problem Code: R29.898; Problem Code Type: ICD-10; Not Available [facility] 3 05:55:55 Cellulit is of left lower limb 41665250629 875505 Completed 202205/23/2022 Problem Code: L03.116; Problem Code Type: ICD-10; Not Available [facility] 3 05:55:55 Dizzines s and giddines s 802233171 Active 2022 Problem Code: R42; Problem Code Type: ICD-10; Not Available [facility] 3 05:55:55 Fever 987737033 Completed 201609/24/2020 Problem Code: R50.81; Problem Code Type: ICD-10; Not Available [facility] 3 05:56:12 Cellulit is of left lower limb 40185500700 288574 Completed 201410/25/2016 Problem Code: L03.116; Problem Code Type: ICD-10; Not Available [facility] 3 05:56:12 History of clinical finding in subject 347292635 Completed 201011/14/2022 Not Available [facility] 3 05:56:13 Acute osteomye litis of ankle and/or foot 647035155 Completed 201011/14/2022 Problem Code: 730.07; Problem Code Type: ICD-9; Not Available [facility] 3 05:56:14 Pain in limb 19884732 Completed 201709/24/2020 Problem Code: M79.609; Problem Code Type: ICD-10; Not Available [facility] 3 05:56:15 Nicotine dependen ce 08109826 Completed 201709/24/2020 Problem Code: Z87.891; Problem Code Type: ICD-10; Skinny Reza MA [facility] 4 14:57:43 Bronchit is 20435273 Completed 201709/24/2020 Problem Code: J40; Problem Code Type: ICD-10; Not Available [facility] 3 05:56:17 Abdomina l pain 90232449 Completed 201509/24/2020 Problem Code: R10.9; Problem Code Type: ICD-10; Not Available [facility] 3 05:56:17 Pain in right lower limb 586709394 Completed 201510/25/2016 Problem Code: M79.604; Problem Code Type: ICD-10; Not Available [facility] 3 05:56:18 Diabetes mellitus 79468223 Completed 200811/14/2022 10/20/19 15 - Deterior delmi - Lilli Packer MD - Ameyain g control. Sounds like he remains on track with diet and the exericis e he is capable of. We agreed to continue with current meds, he will try and work more on lowing BS's. If not improvin g in 3 months will increase doses on medicati ons. Not Available [facility] 3 05:56:18 Acute appendic itis with generali zed peritoni tis 21737880 Completed 201610/25/2016 Problem Code: K35.2; Problem Code Type: ICD-10; Not Available [facility] 3 05:56:20 Cellulit is of right lower limb 98677386881 178393 Completed 201609/24/2020 Problem Code: L03.115; Problem Code Type: ICD-10; Not Available [facility] 3 05:56:21 Pain of left shoulder joint 22059392120 641457 Completed 201703/23/2020 Problem Code: M25.512; Problem Code Type: ICD-10; Not Available [facility] 3 05:56:21 Shoulder joint pain 069034745 Completed 201010/25/2016 Problem Code: M25.519; Problem Code Type: ICD-10; Not Available [facility] 3 05:56:23 Type 2 diabetes mellitus without complica tion 913307589 Completed 200801/25/2017 Problem Code: E11.9; Problem Code Type: ICD-10; Not Available [facility] 3 05:56:23 Shoulder pain 32610117 Completed 201011/14/2022 Not Available [facility] 3 05:56:24 Chronic ulcer of foot 501944201 Completed 201609/24/2020 Problem Code: L97.509; Problem Code Type: ICD-10; Not Available [facility] 3 05:56:24 Cholecys tectomy Completed 202310/26/2023 Removal Reason: 2023, gangrene ous gallblad alma rosa MD [address], [place], [address] , [facility] 4 06:37:38 Cholecys titis 86639171 Active [address], [place], [address] , [facility]. 4 14:29:58 Problem Notes None recorded. Procedures Surgical History None recorded. Imaging Results Imaging Date Name Status LastModified by [facility] Details LastModified Time 06/20/2023 MRI, lumbar spine, w/o contrast completed [email or web address] [address] [place], [address] 07/16/2023 14:57:48 10/20/2023 x-ray imaging report completed [address] [place], [address] 10/26/2023 06:35:03 10/20/2023 CT imaging report completed [address] [place], [address] 10/26/2023 06:35:04 10/21/2023 vrad report completed [address] [place], [address] 10/26/2023 06:35:04 10/21/2023 x-ray imaging report completed [address] [place], [address] 10/26/2023 06:35:05 10/22/2023 ultrasound imaging report completed [address] [place], [address] 10/26/2023 06:35:05 10/22/2023 MRI imaging report completed [address] [place], [address] 10/26/2023 06:35:05 05/03/2020 XR, shoulder completed Information not available 11/04/2023 00:18:24 05/06/2019 imaging/diagnos tic result completed Information not available 11/04/2023 00:18:26 04/17/2019 imaging/diagnos tic result completed Information not available 11/04/2023 00:18:27 05/20/2018 imaging/diagnos tic result completed Information not available 11/04/2023 00:18:52 06/30/2019 imaging/diagnos tic result completed Information not available 11/04/2023 00:18:53 08/26/2019 imaging/diagnos tic result completed Information not available 11/04/2023 00:20:10 12/18/2023 CT imaging report completed INTERFACE [address] [place], [address] 12/18/2023 15:24:09 12/19/2023 ultrasound imaging report completed INTERFACE [address] [place], [address] 12/19/2023 10:51:18 12/19/2023 ultrasound imaging report completed INTERFACE [address] [place], [address] 12/19/2023 11:50:30 12/19/2023 MRI imaging report completed INTERFACE [address] [place], [address] 12/19/2023 12:03:33 12/19/2023 CT imaging report completed INTERFACE [address] [place], [address] 12/19/2023 16:56:31 12/20/2023 x-ray imaging report completed INTERFACE [address] [place], [address] 12/20/2023 13:58:05 Procedure Notes None recorded. Medical Equipment None Reported. Allergies Allergen ID Allergen Name Allergen Category Reaction Reaction Severity Criticality Documentation Date Start Date Code Code System Note Provider Name and Address Organization Details Recorded Time Bactrim medicatio n Not available Not available [facility] 12/28/20222010 11160 9 RxNorm [facility], [facility]. 3 09:38:11 31294 simvastat in medicatio n myalgias (muscle pain) severe high 12/28/20222012 66401 RxNorm L[facility], [facility], [facility]. 3 09:39:16 39765 sulfadiaz ine medicatio n hives severe high 12/28/20222010 54365 RxNorm Lolly [facility], [facility], [facility]. 3 09:39:23 01599 Medicinal product containin g penicilli n and acting as antibacte rial agent (product) medicatio n other severe high 12/28/20222010 58755 05 SNOMED Shock Lolly [facility], [facility] 3 09:38:42 25022 Levaquin medicatio n other severe high 12/28/20222010 04668 2 RxNorm Lolly Melendez [facility] 3 09:38:24 15314 onion extract food,medi cation angioedem a severe high 02/15/20232020 13692 69 RxNorm Lolly Melendez [facility] 3 09:39:06 Medications Name Sig Start Date Stop Date Status Note LastModified by Organization Details LastModified Time Cipro 750 mg tablet 1 TAB twice daily 05/29 completed Not Available Not Available Not Available Colace 100 mg capsule one twice daily 2016 active [facility] aislinn hines Not Available Not Available Not Available doxycycli ne hyclate 100 mg capsule TAKE 1 CAPSULE BY MOUTH TWICE DAILY FOR 7 DAYS 02/21 completed Not Available Not Available Not Available lidocaine 4 % topical patch apply one transder mal patch qAM active [facility] discharg e Not Available Not Available Not Available Klor-Con 10 mEq tablet,ex tended release Take 1 tablet every day by oral route. active [facility] discharg e Not Available Not Available Not [...] in the evening 01/12 completed stopped by [facility] discharg e Not Available Not Available Not Available clindamyc in HCl 150 mg capsule 1CAP QID 06/05 completed Not Available Not Available Not Available melatonin 3 mg tablet Take 15 mg every day by oral route at bedtime. active [facility] discharg e Not Available Not Available Not Available clopidogr el 75 mg tablet Take 1 tablet every day by oral route. active [facility] discharg e summary Not Available Not Available Not Available oxycodone 15 mg tablet TAKE 1 TABLET BY MOUTH 4 TIMES DAILY NEEDED active Not Available Not Available No t Available Glucotrol XL 5 mg tablet,ex tended release 1 TAB EVERY MORNING 02/25 completed Not Available Not Available Not Available Lasix 20 mg tablet Take 1 tablet every day by oral route. active [facility] discharg e Not Available Not Available Not [...] three times daily as needed 10/25 completed [facility] Dis[facility] Dr. Hines Not Available Not [...] hours as needed 01/23 completed given at [facility] ER Not Available Not Available Not Available [...] oral route as needed. active PRN - [facility] discharg e Not Available Not Available Not Available ezetimibe 10 mg tablet TAKE 1 TABLET BY MOUTH ONCE DAILY FOR CHOLESTE ROL active Not Available Not Available No t Available Novolog FlexPen U-100 Insulin aspart 100 unit/mL (3 mL) subcutane ous INJECT UP TO 55 UNITS PER DAY SUBCUTAN EOUSLY DIRECTED PER SLIDING SCALE PRIOR TO MEALS 01/12 completed stopped by [facility] discharg e Not Available Not Available Not Available Tylenol PM Extra Strength 25 mg-500 mg tablet 1/2 tab at bedtime 07/28 completed Not Available Not Available Not Available rosuvasta tin 20 mg tablet Take 1 tablet every day by oral route at bedtime. active [facility] discharg e Not Available Not Available Not Available duloxetin e 30 mg capsule,d elayed release Take 2 capsules every day by oral route. active [facility] discharg e Not Available Not Available Not [...] subcutan eous route in the morning. active [facility] discharg e Not Available Not Available Not [...] IN THE EVENING 01/12 completed stopped by [facility] discharg e Not Available Not Available Not Available Trulicity 3 mg/0.5 mL subcutane ous pen injector Inject 3 mg every week by subcutan eous route, for diabetes . 01/12 completed [facility] Not Available Not Available Not Available Vitals Date Recorded Body height Body mass index (BMI) Body weight Oxygen saturation Oxygen saturation in Arterial blood by Pulse oximetry Heart rate Systolic blood pressure Diastolic blood pressure Provider Name and Address Organization Details Last Updated DateTime 4 184.302 4 cm 35.4 kg/m2 232194. 98 g 97 % 97 % 70 /min 110 mm[Hg] 62 mm[Hg] Skinny Reza MA [facility], [facility] 4 13:06:32 Date Recorded Body height Heart rate Body mass index (BMI) Body weight Systolic blood pressure Diastolic blood pressure Provider Name and Address Organization Details Last Updated DateTime 4 184.302 4 cm 72 /min 36.3 kg/m2 373738. 12 g 108 mm[Hg] 60 mm[Hg] MACKENZIE LUND LPN [facility], [facility] 4 13:30:02 Date Recorded Body height Body mass index (BMI) Body weight Heart rate Systolic blood pressure Diastolic blood pressure Provider Name and Address Organization Details Last Updated DateTime 4 184.302 4 cm 35.6 kg/m2 009007. 97 g 80 /min 110 mm[Hg] 58 mm[Hg] MACKENZIE LUND LPN [facility], [facility] 4 10:04:11 Date Recorded Body height Body mass index (BMI) Body weight Oxygen saturation Oxygen saturation in Arterial blood by Pulse oximetry Heart rate Systolic blood pressure Diastolic blood pressure Provider Name and Address Organization Details Last Updated DateTime 4 184.302 4 cm 35.9 kg/m2 072897. 35 g 96 % 96 % 72 /min 108 mm[Hg] 64 mm[Hg] Skinny Reza MA [facility] 4 13:34:08 Date Recorded Body height Body mass index (BMI) Body weight Oxygen saturation Oxygen saturation in Arterial blood by Pulse oximetry Heart rate Systolic blood pressure Diastolic blood pressure Provider Name and Address Organization Details Last Updated DateTime 4 184.302 4 cm 35.5 kg/m2 902395. 57 g 97 % 97 % 74 /min 112 mm[Hg] 68 mm[Hg] Skinny Reza MA [facility] 13:53:41 Social History Question Answer Notes LastModified by Organizat ion Details LastModified Time Tobacco Smoking Status Former Smoker Lolly العلي, [facility] 02/21/2023 13:13:08 When Did You Quit Smoking? 6-10yearssin celastcigare tte [email or web address] Information not available 02/21/2023 What Was The Date Of Your Most Recent Tobacco Screening? 02/21/2023 [email or web address] Information not available 02/21/2023 What Is Your Current Pack Years? 10-19packyea rs [email or web address] Information not available 02/21/2023 At What Age Did You Start Smoking Tobacco? 18 [email or web address] Information not available 02/21/2023 How Much Tobacco Do You Smoke? No [email or web address] Information not available 02/21/2023 Has Tobacco Cessation Counseling Been Provided? No Information not available 02/21/2023 How Many Years Have You Smoked Tobacco? 40 [email or web address] Information not available 02/21/2023 Do You Or Have You Ever Used Any Other Forms Of Tobacco Or Nicotine? No [email or web address] Information not available 02/21/2023 Sex: Male Functional Status None recorded. Mental Status None recorded. Family History Relationship Description Onset Age of this Age Resolved Age Notes LastModified by Organization Details LastModified Time Mother No family history of respiratory disease [email or web address] Not available 11/10/ 2023 03:58:58 Mother Family history of heart failure 70 Not available 2022 03:58:58 Notes:*Problem: Mother: he [...] Recorded Time Tdap 04/04/2011 completed Not Available [facility] 05:42:01 Pneumococcal conjugate PCV 13 07/27/2016 completed Not Available [facility] 12/28/2022 05:42:01 COVID-19, mRNA, LNP-S, PF, 100 mcg/0.5mL dose or 50 mcg/0.25mL dose 05/12/2020 completed Not Available [facility] 12/28/2022 05:42:03 COVID-19, mRNA, LNP-S, PF, 100 mcg/0.5mL dose or 50 mcg/0.25mL dose 06/09/2020 completed Not Available [facility] 12/28/2022 05:42:03 COVID-19, mRNA, LNP-S, PF, 100 mcg/0.5mL dose or 50 mcg/0.25mL dose 12/23/2020 completed Not Available [facility] 12/28/2022 05:42:04 pneumococcal polysaccharide PPV23 12/29/2010 completed Not Available [facility] 2022 05:42:05 Past Encounters Encounter ID Performer Location Encounter Start Date Encounter Closed Date Diagnosis/Indication Diagnosis SNOMED-CT Code Diagnosis ICD10 Code [id number] LILLI PACKER MD [address] [address] 02/21/2023 12:53:09 02/21/2023 13:59:48 Amputated below knee 271456938 Z89.519 Type 2 blanca betes mellitus 06120552 E11.8 Shoulder joint pain 2679 88032 M25.519 Spinal stenosis 70982718 M48.00 [id number] LILLI PACKER MD [address] [address] 04/22/2023 14:05:19 04/22/2023 16:37:30 Acute low back pain 455792281 M54.[id number] [address] 05/01/2023 14:12:01 05/01/2023 16:10:31 Acute low back pain 060124297 M54.50 [id number] LILLI PACKER MD [address] [address] 05/28/2023 12:41:58 05/28/2023 13:52:39 Type 2 diabetes mellitus without complication 247600729 E11.9 Shoulder joint pain 2679 19506 M25.519 Vitamin B deficiency 479 16669 E53.[id number] [address] 06/12/2023 13:11:58 06/12/2023 14:42:38 Acute low back pain 093226000 M54.[id number] [address] 07/04/2023 09:51:30 07/04/2023 11:59:01 Acute low back pain 820272692 M54.50 [id number] LILLI PACKER MD [address] [address] 08/30/2023 13:06:57 08/30/2023 14:48:55 Disorder due to type 2 diabetes mellitus [id number] E11.8 Hyperlipidemia [id number] E78.5 Spinal stenosis [id number] M48.00 Shoulder joint pain 2679 [id number] M25.519 Pain in lower limb 00967 006 M79.912 [id number] LILLI PACKER MD [address] [address] 11/29/2023 13:23:40 11/29/2023 15:09:04 Disorder due to type 2 diabetes mellitus [id number] E11.8 Shoulder joint pain 2679 04181 M25.519 Amputated below knee 299 [id number] Z89.519 Cholecystitis [id number] K 81.9 Health Concerns Section Related Observation LastModified by Organization Detai ls LastModified Time None Recorded Concern Status LastModified by Organization Details LastModified Time None Recorded Advance Directives Directive None Recorded Payers Encounter Date Sequence Insurance Name Policy Number Policy Noble Covered Member ID Noble Member ID Guarantor Name 05/28/2023 1 [place] [facility] Christopher J Ruff [id number] Samueler Emanuel Galeano 06/12/2023 1 [place] [facility] Christopher J Ruff [id number] Christopher J Ruff 07/04/2023 1 [place] [facility] Christopher J Ruff [id number] Christopher Emanuel Galeano 08/30/2023 1 [place] [facility] Christopher J Ruff [id number] Christskyer Emanuel Froylan 11/29/2023 1 [place] [facility] Christopher J Froylan [id number] [facility] Emanuel Galeano Notes Date Note Type Note Provider Name and Address Organization Details Recorded Time 05/28/2023 text/html Bear here today for f/u of DM, chronic bilat shoulder pain, back pain, vit B12 deficiency LILLI PACKER MD [address], [place], [address], [facility]. 05/29/2023 17:58:38 06/12/2023 text/html 72-year-old man here for complaints of Worsening low back and right hip pain radiating down the lateral right leg through the foot it started on Saturday night, he woke up Saturday morning pain was minimal he went fishing, Saturday night he did not sleep due to the pain, Saturday he felt a little better went fishing, Saturday night his pain got worse. He did try OTC naproxen along with a Tylenol a couple of times uncertain if it helped his pain. He feels weaker in the right foot, no falls no worsening sense of balance than normal. No urinary incontinence. No fevers or weight loss. 2016 neurosurgery at [facility] visit: Physical therapy was recommended. Last MRI 10/26/2015 lumbar spine without; L4-5 there is an L4 laminectomy. Grade 1 anterolisthesis of L4 on L5 and degenerative changes present. All contribute to cause severe bilateral neuroforaminal stenosis. Degenerative changes at L3-4 causing bilateral neural foraminal stenosis which is moderate in degree. Multilevel degenerative changes throughout the lumbar spine causing central spinal canal and neuroforaminal stenosis. Patient denies fever, weight loss, GI symptoms, no falls although he does feel that his right leg feels unstable. Romelia العلي [facility]. 06/13/2023 12:18:21 07/04/2023 text/html 72-year-old man here for follow-up worsening low back pain, right hip pain. HX: Worsening low back and right hip pain radiating down the lateral right leg through the foot it started on Saturday night, he woke up Saturday morning pain was minimal he went fishing, Saturday he did not sleep due to the pain, Saturday he felt a little better went fishing, Saturday night his pain got worse. He did try OTC naproxen along with a Tylenol a couple of times uncertain if it helped his pain. He feels weaker in the right foot, no falls no worsening sense of balance than normal. No urinary incontinence. No fevers or weight loss. 2016 neurosurgery at [facility] visit: Physical therapy was recommended. Last MRI 10/26/2015 lumbar spine without; L4-5 there is an L4 laminectomy. Grade 1 anterolisthesis of L4 on L5 and degenerative changes present. All contribute to cause severe bilateral neuroforaminal stenosis. Degenerative changes at L3-4 causing bilateral neural foraminal stenosis which is moderate in degree. Multilevel degenerative changes throughout the lumbar spine causing central spinal canal and neuroforaminal stenosis. 06/20/2023 Lumbar MRI: IMPRESSION:Multilevel degenerative disc changes and facet degenerative changes. Post surgicalchanges at L4-5.Findings greatest at L3-4 where there is moderate central canal stenosis and severebilateralneural foraminal narrowing. No focal disc herniation. To manage symptoms he used OTC naproxen? 2 tablets along with the Tylenol twice a day for several days, removed the mattress topper on his new mattress and his symptoms have completely resolved. He continues to do home exercise that he got from physical therapy daily. PARTH Dutton [facility]. 07/04/2023 10:52:07 08/30/2023 text/html Jason here today for f/u of DM, hyperlipidemia, peripheral neuropathy MD [address], [place], [address], [facility] 09/02/2023 20:43:32 11/29/2023 text/html Jason here today for follow-up diabetes, recent cholecystectomy MD [address], [place], [address], [facility] 12/02/2023 14:41:31
--- OUTSIDE RECORDS SUMMARY | 2024-01-15 17:03 | XMS_ITS | Clinical Summary ---
Author Organization [facility] Address [address] [facility] [place] [address] Care Team Providers Care Professor Of Family Medicine Name Role Phone Remberto Bernabe Primary Care Provider Allergies Active Allergy Reactions Criticality Noted Date Comments Penicillins Anaphylaxis High Sulfa (Sulfonamide Antibiotics) Anaphylaxis High Medications Medication Sig Dispensed Refills Start Date End Date Status cyanocobalamin, vitamin B-12, 1,000 mcg/mL Solution 04/19/2017 Active VITAMIN D 50,000 unit Capsule 06/03/2017 Active aspirin 81 mg Tablet, Delayed Release (E.C.) Take 81 mg by mouth daily. Active gabapentin enacarbil 300 mg Tablet Sustained Release Take 900 mg PE by mouth 2 times daily. Active glipiZIDE (GLUCOTROL) 5 mg Tablet Take 5 mg by mouth 2 times daily (before meals). Active insulin detemir U-100 (LEVEMIR) Insulin Pen Inject 41 Units subcutaneously nightly. Active insulin NPH hum/reg insulin hm (HUMULIN 70/30 U-100 INSULIN SUBQ) Inject subcutaneously. Sliding scale Active metFORMIN (GLUCOPHAGE) 850 mg Tablet Take 850 mg by mouth daily. Active Active Problems No known active problems Encounters Date Type Department Care Team Description 12/19/2023 11:15 PM EDT Telehealth [place] [address] Telehealth, Neurology 12/19/2023 5:35 PM EDT Telehealth [place] [address] Telehealth, Neurology 12/18/2023 3:05 PM EDT Telehealth [place] [address] Telehealth, Neurology from Last 3 Months Social History Tobacco Use Types Packs/Day Years Used Date Smoking Tobacco: Former Smokeless Tobacco: Never Sex and Gender Information Value Date Recorded Sex Assigned at Not on file Gender Identity Not on file Sexual Orientation Not on file Last Filed Vital Signs Vital Sign Reading Time Taken Comments Blood Pressure 117/75 06/13/2017 10:54 AM EDT Pulse 95 06/13/2017 10:54 AM EDT Temperature - - Respiratory Rate 18 06/13/2017 10:54 AM EDT Oxygen Saturation - - Inhaled Oxygen Concentration - - Weight 115.7 kg (255 lb) 06/13/2017 10:54 AM EDT Height 185.4 cm (6' 1) 06/13/2017 10:54 AM EDT Body Mass Index 33.64 06/13/2017 10:54 AM EDT Plan of Treatment Health Maintenance Due Date Last Done Comments CT Colonography 1950 Colonoscopy 1950 Colorectal Cancer Screening 1950 FIT DNA 1950 FIT 1950 Sigmoidoscopy (10 year) with FIT yearly 1950 Sigmoidoscopy 1950 Hepatitis C Screening 1968 Lipid Screening 1968 Tetanus/Diphtheria/Pertussis Vaccines (1 - Tdap) 11/15 Zoster vaccine (1 of 2) 2000 Advance Directive 2005 AAA Screen 11/16/2015 Pneumoccocal Vaccine: 65+ (1 of 1 - PCV) 11/16/2015 Covid-19 Vaccine (2 - season) 10/20/202306/2020 Influenza (Flu) vaccine (1 o f 1 - Influenza standard series) 10/20/2023 Care Teams Professor Of Family Medicine Relationship Specialty Start Date End Date Remberto Bernabe, DO [facility] [address] [place] [address] [facility] - General 01/10/10
--- OUTSIDE RECORDS SUMMARY | 2024-01-15 17:04 | XMS_ITS | Encounter Summary ---
Author Organization [facility] Address [address] [place] [address] Care Team Providers Care Bacteriologist Soil Name Role Phone Carmen Benavides Primary Care Provider [phone] Encounter Details Date Type Department Care Team (Latest Contact Info) Description 11/16/2016 15:48 EDT - 11/16/2016 23:59 EDT Hospital Encounter [address] [address] Unknown, Provider, MD Discharge Disposition: Home or Self Care Social History Tobacco Use Types Packs/Day Years Used Date Smoking Tobacco: Never Assessed Sex and Gender Information Value Date Recorded Sex Assigned at Not on file Legal Sex Male 18:51 EST Gender Identity Not on file Sexual Orientation Not on file documented as of this encounter Discharge Disposition Disposition Code Departure Means Destination Home or Self Snf documented in this encounter Plan of Treatment Not on file documented as of this encounter Visit Diagnoses Not on filedocumented in this encounter Care Teams Bacteriologist Soil Relationship Specialty Start Date End Date Carmen Benavides FNP [address] [place] [address] PCP - General 04/18/12 11/19/16 documented as of this encounter
--- OUTSIDE RECORDS SUMMARY | 2024-01-15 17:04 | XMS_ITS | Encounter Summary ---
Author Organization [facility] Address [address] [place] [address] Care Team Providers Care Firing Pin Gauger Name Role Phone Lilli Packer MD Primary Care Provider [phone] Encounter Details Date Type Department Care Team (Late st Contact Info) Description 06/09/2018 Results Only [facility] [phone] Molly Iraheta MD [address] [place] [address] [address] [place], [place] [phone] Social History Tobacco Use Types Packs/Day Years Used Date Smoking Tobacco: Never Assessed Sex and Gender Information Value Date Recorded Sex Assigned at Not on file Legal Sex Male 18:51 EST Gender Identity Not on file Sexual Orientation Not on file documented as of this encounter Plan of Treatment Not on file documented as of this encounter Procedures Procedure Name Priority Date/Time Associated Diagnosis Comments SURGICAL PATHOLOGY Routine 06/09/2018 16 :23 EDT documented in this encounter Results * SURGICAL PATHOLOGY (06/09/2018 16:23 EDT) Pathology Report: SURGICAL PATHOLOGY REPORT Reports generated via electronic interface contain original data; however they are lacking the format of the original report. Caution should be taken when reading/interpretin g unformatted reports. Name: ? SUHAIL PENA ? Accession #: ? [id number] ? : ? 1950 (Age: 67) ??M ? Collect Date: ? 06/09/2018 ? Location: ? [facility] ? Receive Date: ? 06/09/2018 ? Provider: MOLLY IRAHETA MD Copy to: LILLI PACKER MD ? Final Pathologic Diagnosis: A. STOMACH, ANTRUM, BIOPSY: - Superficial fragments of foveolar mucosa. - Negative for helicobacter pylori organisms on the H&E stained slide. B. ESOPHAGUS, GASTROESOPHAGEAL JUNCTION, BIOPSY: - Squamous epithelium showing reactive changes. - No columnar epithelium is present in this specimen. Document reviewed and electronically signed by: GEETA LINO MD Report ??Date: 06/11/2018 10:44 By the signature above, the attending physician certifies that he/she has personally conducted a gross and/or microscopic examination of the described specimens and rendered or confirmed the above diagnosis. Specimen(s) Received: A. ??Bx gastric antrum B. ??Bx GE junction Clinical History: Dysphagia to pills only, R/O H. pylori Gross Description: A. ?Received in formalin labelled with proper patient identification (initials R, C) and BX gastric antrum is a single pink-stoddard tissue fragment (0.4 x 0.3 x 0.2 cm). Submitted intact in A1. B. ?Received in formalin labelled with proper patient identification (initials R, C) and BX GE junction are three stoddard white tissues (0.2 x 0.2 x 0.2 cm, 0.3 x 0.2 x 0.2 cm and 0.3 x 0.2 x 0.2 cm). Entirely submitted in B1. GARFIELD Barry (ASCP) 06/09/2018 4:30 PM End of Report [facility] 06/09/2018 16:2 3 EDT 06/09/2018 16:23 EDT us Molly Iraheta MD PATHOLOGY ORDERABLES Fin al Result [facility] [address] [place] [address] documented in this encounter Visit Diagnoses Not on filedocumented in this encounter Care Teams Firing Pin Gauger Relationship Specialty Start Date End Date Lilli Packer MD [address] [place] [address] PCP - General 11/20/16 documented as of this encounter
--- OUTSIDE RECORDS SUMMARY | 2024-01-15 17:04 | XMS_ITS | Clinical Summary ---
Author Organization [facility] Address [address] [place] [address] Care Team Providers Care Tool Supervisor Name Role Phone Lilli Packer MD Primary Care Provider [phone] Encounters Date Type Department Care Team Description 10/23/2023 Lab Requisition [facility] Pathology & Laboratory Medicine - [facility] [address] [place] [address] Lamont Siu MD Encounter for other general examination from Last 3 Months Social History Tobacco Use Types Packs/Day Years Used Date Smoking Tobacco: Never Assessed Interpersonal Safety Answer Date Record ed Physically Hurt Never 09/20/2019 Verbally Threaten Not on file 09/20/2019 Sex and Gender Information Value Date Recorded Sex Assigned at Not on file Legal Sex Male 18:51 EST Gender Identity Not on file Sexual Orientation Not on file Plan of Treatment Health Maintenance Due Date Last Done Comments Hepatitis C Screen 1950 Fall Risk Screening 11/16/2015 COVID-19 Vaccine ( season) 2023 RSV Immunization ( o r 60+ Years) (1 - 1-dose 75+ series) 2025 Procedures Procedure Name Priority Date/Time Associated Diagnosis Comments SURGICAL PATHOLOGY Today 10/20/2023 22 :50 EDT Encounter for other general examination from Last 3 Months Results * SURGICAL PATHOLOGY (10/20/2023 22:50 EDT) Note to Patient The following pathology results have been interpreted by your pathologist and may be available to you before your health provider has had the opportunity to review them. Please allow time for your provider to receive these results and explore management options, if applicable. 10/28/2023 11:01 [facility] Final Diagnosis A. GALLBLADDER, CHOLECYSTECTOMY: - Acute gangrenous cholecystitis. - Cholelithiasis. 10/28/2023 11:01 [facility] Attestation There was significant resident/fellow involvement in the diagnostic evaluation of this case. By the signature below, the attending physician certifies that they have personally conducted a gross and/or microscopic examination of the described specimens and rendered or confirmed the above diagnosis. 10/28/2023 11:01 [facility] at [address] Clinical History Acute cholecystitis 10/28/2023 11:01 [facility] Gross Description A. Received in formalin labelled with proper patient identification (initials R, C) and gallbladder is a 12.0 x 6.0 x 3.0 cm disrupted gallbladder. Due to disruption, a cystic duct margin is not grossly appreciated. A lymph node is not identified. The serosa is stoddard-green, smooth and glistening. The wall averages 0.2 cm in thickness and the mucosa is green and velvety. Multiple yellow-black ovoid calculi are identified within the specimen and specimen container ranging from 0.1 x 0.1 x 0.1 cm to 1.3 x 1.0 x 1.0 cm and aggregating 3.0 x 3.0 x 1.0 cm. Water Proofer sections are submitted in A1. GARFIELD DHILLON(ASCP) 10/23/2023 9:42 10/28/2023 11:01 [facility] Resident/Teddy w: Geremias Lewis DO 10/28/2023 11:01 [facility] Performing Lab [facility] 10/28/2023 11:01 [facility] Scanned Images 10/28/2023 11:01 [facility] Tissue GALLBLADDER STRUCTURE / Unknown 10/20/2023 22:50 EDT 10/23/2023 8:37 EDT us Lamont Siu MD PATHOLOGY ORDERABLES Final Resu lt [facility] [address] [place], [place] [phone] from Last 3 Months Insurance MEDICARE Care Teams Tool Supervisor Relationship Specialty Start Date End Date Lilli Packer MD [address] [place] [id number] PCP - General 11/20/16
--- OUTSIDE RECORDS SUMMARY | 2024-01-15 17:04 | XMS_ITS | Encounter Summary ---
Author Organization [facility] Address [address] [place] [address] Care Team Providers Care Mortician Supplies Sales Representative Name Role Phone Unknown, Provider Primary Care Provider Unava ilable Encounter Details Date Type Department Care Team (Late st Contact Info) Description 12/13/2010 Results Only [facility] [phone] Virgilio Lopez, DO [address] [place] [address] Social History Tobacco Use Types Packs/Day Years [...] Date/Time Associated Diagnosis Comments SURGICAL PATHOLOGY Routine 12/13/2010 0:00 EDT documented in this encounter Results * SURGICAL PATHOLOGY (12/13/2010 0:00 EDT) Pathology Report: SURGICAL PATHOLOGY REPORT Reports generated via electronic interface contain original data; however they are lacking the format of the original report. Caution should be taken when reading/interpreti ng unformatted reports. Name: ? SUHAIL PENA ? Accession #: ? [id number] ? : ? 1950 (Age: 60) ??M ? Collect Date: ? 12/13/2010 ? Location: ? [facility] ? Receive Date: ? 12/13/2010 ? Provider: VIRGILIO LOPEZ DO Copy to: SHEYLA ERICKSON MD ? Final Pathologic Diagnosis: ? Leg, left posterior, excision: 1. ?Fibroadipose tissue with acute, subacute, and chronic inflammation. 2. ? Microabscess formation with multinucleated giant cells. ??See comment. Comment: ? A silver stain and tissue Gram stain (B&B) were performed on block (A2). Although no definitive organisms are identified, a culture of this area may prove useful in identifying the etiology of this extensive inflammation. ??The patient's previous surgical pathology report ([id number]) has also been reviewed. (Dr. Gallegos)/n Document reviewed and electronically signed by: KILEY GALLEGOS MD Report ??Date: 12/19/2010 13:23 By the signature above, the attending physician certifies that he/she has personally conducted a gross and/or microscopic examination of the described specimens and rendered or confirmed the above diagnosis. Specimen(s) Received: ? Skin mass left BKA leg posterior Clinical History: ? Skin mass left BKA leg posterior Gross Description: ? Received in formalin labelled Suhail Pena and skin mass left BKA leg posterior are five pieces of tissue which weigh 1.8 grams in toto. ??The largest piece measures 2.0 x 1.3 x 1.3 cm and has an irregular, firm, white and stoddard external surface. ??The external surface is black inked. ??The remaining four fragments range in size from 1.0 x 0.7 x 0.5 cm to 0.9 x 0.6 x 0.5 cm and consist of white, focally light stoddard to stoddard-brown, soft to focally firm tissue. The external surface of these four smaller fragments are not inked. ??The largest piece of tissue is sectioned into seven sections revealing a white, focally yellow, and focally stoddard, firm cut surface. ??The specimens are submitted entirely as follows: BLOCK MARTIN A1, A2 ?Five cross sections of largest piece A3 ?Two ends of largest piece, reverse en face A4 ?Remaining four smaller intact pieces (Bre Sanchez)/ljn End of Report JOSE MARIA ONEILL 12/13/2010 12/13/2010 9:0 7 EDT us Virgilio Lopez DO PATHOLOGY ORDERABLES Final Res ult Performing Organization Address City/State/[facility] Co de Phone Number JOSE MARIA ONEILL [address] [place] [address] documented in this encounter Visit Diagnoses Not on filedocumented in this encounter Care Teams Mortician Supplies Sales Representative Relationship Specialty Start Date End Date Unknown, Provider, PCP - General 04/17/10 12/18/10 documented as of this encounter
--- OUTSIDE RECORDS SUMMARY | 2024-01-15 17:04 | XMS_ITS | Encounter Summary ---
Author Organization [facility] [place] [address] Care Team Providers Care Worm Farmer Name Role Phone Remberto Bernabe Primary Care Provider [phone] Reason for Visit * Diagnostic Test (Routine) - Closed Specialty Diagnoses / Procedures Referred By Nadya wolfe Referred To Contact Radiology Diagnoses Right shoulder pain, unspecified chronicity Procedures MRI Shoulder wo Contrast Left (Generic) MRI Shoulder wo Contrast Right (Generic) MRI Shoulder wwo Contrast Right Migel Jarrett MD [address] [place] [address] [place] [address] Referral ID Status Reason Start Date Expiration Date V isits Requested Visits Authorized [id number] Closed Specialty Service Requested 02/13/2018 02/13/2019 1 1 Encounter Details Date Type Department Care Team (Latest Contact Info) Description 02/28/2018 12:50 PM EST - 02/28/2018 11:59 PM [facility] Hospital [place] [phone] Migel Jarrett MD [address] [place] [phone] Right shoulder pain, unspecified chronicity Discharge Disposition: Home Social History Tobacco Use Types Packs/Day Years Used Date Smoking Tobacco: Former Smokeless Tobacco: Never Sex and Gender Information Value Date Recorded Sex Assigned at Not on file Gender Identity Not on file Sexual Orientation Not on file documented as of this encounter Medications at Time of Discharge Medication Sig Dispensed Refills Start Date End Date cyanocobalamin, vitamin B-12, 1,000 mcg/mL Solution 04/19/2017 VITAMIN D 50,000 unit Capsule 06/03/2017 aspirin 81 mg Tablet, Delayed Release (E.C.) Take 81 mg by mouth daily. gabapentin enacarbil 300 mg Tablet Sustained Release Take 900 mg PE by mouth 2 times daily. glipiZIDE (GLUCOTROL) 5 mg Tablet Take 5 mg by mouth 2 times daily (before meals). insulin detemir U-100 (LEVEMIR) Insulin Pen Inject 41 Units subcutaneously nightly. insulin NPH hum/reg insulin hm (HUMULIN 70/30 U-100 INSULIN SUBQ) Inject subcutaneously. Sliding scale metFORMIN (GLUCOPHAGE) 850 mg Tablet Take 850 mg by mouth daily. documented as of this encounter Plan of Treatment Not on file documented as of this encounter Procedures Procedure Name Priority Date/Time Associated Diagnosis Comments MRI SHOULDER LEFT WO CONTRAST Routine 02/28/2018 2:37 PM EST Right shoulder pain, unspecified chronicity documented in this encounter Results * MRI Shoulder wo Contrast Left (Generic) (02/28/2018 2:37 PM EST) Anatomical Region Laterality Modality Shoulder Left Magnetic Resonan ce Impressions 02/28/2018 3:02 PM EST 1. ?? Examination is incomplete because of patient discomfort. No axial images were acquired. 2. ??Postsurgical changes at the AC joint suggest decompression. 3. ??Prior rotator cuff surgery. 4. ??38 mm full-thickness anterior superior cuff defect with retracted torn and of the cuff. 5. ??No interruption of irregular and heterogeneous remaining posterior inferior infraspinatus fibers. 6. ??Unable to determine subscapular tear. 7. ??Glenohumeral joint osteoarthropathy and synovitis. Narrative 02/28/2018 3:02 PM EST EXAMINATION: MRI SHOULDER WO CONTRAST LEFT (GENERIC) CLINICAL HISTORY: Right shoulder rotator cuff. , Right shoulder pain post-op right rotator cuff surgery-10/09/17 ? New tear. COMPARISON: None TECHNIQUE: Routine ??MRI of the Left shoulder was performed. Patient was only able to tolerate for imaging series. FINDINGS: Only sagittal and coronal images are available. ACROMIOCLAVICULAR JOINT: Large number of ferromagnetic artifacts surround the acromium. The AC interval is wide. Findings suggest decompression surgery. ROTATOR CUFF: Prior cuff repair represented by suture anchors near the greater tuberosity. 38 x 35 mm full-thickness anterior superior rotator cuff tear starting at the anterior leading edge.The torn end of the cuff is at level of medial third of humeral head. They are noninterrupted but irregular and attenuated posterior infraspinatus tendon fibers. The teres minor is not interrupted. Evaluation of the subscapular tendon is difficult without the axial images. MUSCULATURE: 1. ??Supraspinatus muscle-atrophy. 2. ??Infraspinatus muscle -mild fatty infiltration. 3. ??Subscapular and teres minor muscles - normal size and signal. GLENOHUMERAL JOINT & CARTILAGE: Normal glenohumeral alignment. Attenuated superior lateral humeral head cartilage. Evaluation of the glenoid cartilage is also limited by lack of axial images. There is a moderate size effusion containing large amount of debris and hypointense material. LABRUM: 1. ??Posterior-superior labrum-Atretic and blunted representing degenerative tears and fraying. 2. ??Posterior inferior, anterior superior and anterior inferior labrum-unable to evaluate due to lack of axial images. BICEPS TENDON: Longitudinal splits and heterogeneous intra-articular segment. BONES: No fractures seen. NERVES: No mass lesion in Quadrilateral space and along the suprascapular nerve Procedure Note Betsy Mendez MD - 02/28/2018 EXAMINATION: MRI SHOULDER WO CONTRAST LEFT (GENERIC) CLINICAL HISTORY: Right shoulder rotator cuff. , Right shoulder painpost-op right rotator cuff surgery-10/09/17 ? New tear. COMPARISON: None TECHNIQUE: Routine MRI of the Left shoulder was performed. Patient was only able to tolerate for imaging series. FINDINGS: Only sagittal and coronal images are available. ACROMIOCLAVICULAR JOINT: Large number of ferromagnetic artifacts surroundthe acromium. The AC interval is wide. Findings suggest decompressionsurgery. ROTATOR CUFF: Prior cuff repair represented by suture anchors near the greatertuberosity. 38 x 35 mm full-thickness anterior superior rotator cuff tear starting atthe anterior leading edge.The torn end of the cuff is at level of medial thirdof humeral head. They are noninterrupted but irregular and attenuated posteriorinfraspinatus tendon fibers. The teres minor is not interrupted. Evaluation of thesubscapular tendon is difficult without the axial images. MUSCULATURE: 1. Supraspinatus muscle-atrophy. 2. Infraspinatus muscle -mild fatty infiltration. 3. Subscapular and teres minor muscles - normal size and signal. GLENOHUMERAL JOINT & CARTILAGE: Normal glenohumeral alignment. Attenuated superior lateral humeral head cartilage. Evaluation of the glenoid cartilage is also limited by lack ofaxial images. There is a moderate size effusion containing large amount ofdebris and hypointense material. LABRUM: 1. Posterior-superior labrum-Atretic and blunted representingdegenerative tears and fraying. 2. Posterior inferior, anterior superior and anterior inferiorlabrum-unable to evaluate due to lack of axial images. BICEPS TENDON: Longitudinal splits and heterogeneous intra-articularsegment. BONES: No fractures seen. NERVES: No mass lesion in Quadrilateral space and along the suprascapularnerve IMPRESSION 1. Examination is incomplete because of patient discomfort. No axialimages were acquired. 2. Postsurgical changes at the AC joint suggest decompression. 3. Prior rotator cuff surgery. 4. 38 mm full-thickness anterior superior cuff defect with retracted tornand of the cuff. 5. No interruption of irregular and heterogeneous remaining posteriorinferior infraspinatus fibers. 6. Unable to determine subscapular tear. 7. Glenohumeral joint osteoarthropathy and synovitis. Migel Jarrett MD IMG MRI ORDERABLES documented in this encounter Visit Diagnoses Diagnosis Right shoulder pain, unspecified chronicity documented in this encounter Care Teams Worm Farmer Relationship Specialty Start Date End Date Remberto Bernabe DO [place] [address] [place] [address] PCP - General 01/10/10 documented as of this encounter
--- OUTSIDE RECORDS SUMMARY | 2024-01-15 17:04 | XMS_ITS | Encounter Summary ---
Author Organization [facility] Address [address] [place] [address] Care Team Providers Care Cash Grain Grower Name Role Phone Lilli Packer MD Primary Care Provider [phone] Encounter Details Date Type Department Care Team (Latest Contact Info) Description 05/29/2017 10:40 EDT - 05/29/2017 23:59 EDT Hospital Encounter [address] [address] Unknown, Provider, MD Discharge Disposition: Home or [...] Code Departure Means Destination Home or Self Residential documented in this encounter Plan of Treatment Not on file documented as of this encounter Visit Diagnoses Not on filedocumented in this encounter Care Teams Cash Grain Grower Relationship Specialty Start Date End Date Lilli Packer MD [address] [place] [address] PCP - General 11/20/16 documented as of this encounter
--- OUTSIDE RECORDS SUMMARY | 2024-01-15 17:04 | XMS_ITS | Encounter Summary ---
Author Organization [facility] [place] [address] Care Team Providers Care Vp Talent Management Name Role Phone Remberto Bernabe DO Primary Care Provider [phone] Encounter Details Date Type Department Care Team (Late st Contact Info) Description 10/26/1999 Orders Only Radiology and Cardiology Results [address] [place] [address] Apd Conversion, Results Provider, Social History Tobacco Use Types Packs/Day Years Used Date Smoking Tobacco: Never Assessed Sex and Gender Information Value Date Recorded Sex Assigned at Not on file Gender Identity Not on file Sexual Orientation Not on file documented as of this encounter Plan of Treatment Not on file documented as of this encounter Procedures Procedure Name Priority Date/Time Associated Diagnosis Comments PROTHROMBIN TIME Routine 10/26/1999 7:04 AM EDT documented in this encounter Results * (ABNORMAL) Prothrombin Time (10/26/1999 7:04 AM EDT) Prothrombin Time 11.9(Exte rnal Lab) 10 - 14 SECONDS LEANDRO PALENCIA DAY CONVERSION International Normalization Ratio 1.0(Exter nal Lab) LEANDRO PALENCIA DAY CONVERSION 10/26/1999 7:04 AM EDT Results Provider Apd Conversion MD DESTIN SCHULTZ ORDERABLES LEANDRO PALENCIA DAY CONVERSION documented in this encounter Visit Diagnoses Not on filedocumented in this encounter Care Teams Vp Talent Management Relationship Specialty Start Date End Date Remberto Bernabe DO [address] [place], [place] [id number] PCP - General 01/10/10 documented as of this encounter
--- OUTSIDE RECORDS SUMMARY | 2024-01-15 17:04 | XMS_ITS | Encounter Summary ---
Author Organization [facility] Address [address] [place] [address] Care Team Providers Care Tow Truck Operator Name Role Phone Lilli Packer MD Primary Care Provider [phone] Encounter Details Date Type Department Care Team (Late st Contact Info) Description 04/16/2012 Results Only [facility] Laboratory Services - [facility] ([facility]) [address] [place] [address] Migel Arrieta MD [address] [place] [address] [place] [address] Social History Tobacco Use Types Packs/Day Years [...] Date/Time Associated Diagnosis Comments SURGICAL PATHOLOGY Routine 04/16/2012 16 :46 EST documented in this encounter Results * SURGICAL PATHOLOGY (04/16/2012 16:46 EST) Pathology Report: SURGICAL PATHOLOGY REPORT Reports generated via electronic interface contain original data; however they are lacking the format of the original report. Caution should be taken when reading/interpreting unformatted reports. Name: ? SUHAIL PENA ? Accession #: ? [id number] ? : ? 1950 (Age: 61) ??M ? Collect Date: ? 04/16/2012 ? Location: ? [facility] ? Receive Date: ? 04/16/2012 ? Provider: MIGEL ARRIETA MD Copy to: LILLI PACKER MD ? Final Pathologic Diagnosis: ? Bone of distal clavicle, right, and subacromial bursa, excision: 1. ?Bone and articular cartilage with osteoarthritic changes. ?? 2. ? Bone marrow with no specific pathologic features. ??See comment. 3. ? Synovial-lined fibrovascular tissue with reactive changes. ?? Comment: ? The sections of bone marrow were reviewed during an intradepartmental consultation conference. ??(Dr. Lerma) Document reviewed and electronically signed by: CORNELIA LERMA MD Report ??Date: 04/22/2012 19:24 By the signature above, the attending physician certifies that he/she has personally conducted a gross and/or microscopic examination of the described specimens and rendered or confirmed the above diagnosis. Specimen(s) Received: ? Distal clavicle right, subacromial bursa Clinical History: ? R rotator cuff tear with A-C joint arthritis and impingement leading to tear. Please verify A-C joint arthritis Gross Description: ? Received in formalin labelled Samuel Penaer and right distal clavicle is a 3.8 x 2.2 x 1.0 cm irregular portion of firm stoddard-brown bone. ??One surface has a stoddard-white, focally stoddard-red, granular, articular surface. ??The cut surface is firm, dense, white bony tissue immediately underlying the articular surface, while the bone at the margin is stoddard-red and trabecular. ??Also received in the specimen container are three irregular fragments of stoddard-white to stoddard-purple, slightly shaggy soft tissue that range from 2.0 x 1.2 x 0.4 cm to 2.7 x 1.5 x 0.6 cm. ??Branch Service Representative sections of the bone are submitted in cassettes (1) and (2) following decalcification and financial services representative sections of the soft tissue is submitted in cassette (3). (Nikita Ovalle)/mpl End of Report [facility] 04/16/2012 16:4 6 EST 04/16/2012 16:46 EST us Migel Arrieta MD PATHOLOGY ORDERABLES Final Result [facility] [address] [place] [address] documented in this encounter Visit Diagnoses Not on filedocumented in this encounter Care Teams Tow Truck Operator Relationship Specialty Start Date End Date Lilli Packer MD [address] [place] [address] PCP - General 12/19/10 04/17/12 documented as of this encounter
--- OUTSIDE RECORDS SUMMARY | 2024-01-15 17:04 | XMS_ITS | Encounter Summary ---
Author Organization [facility] Address [address] [place] [address] Care Team Providers Care Datastage Consultant Name Role Phone Lilli Packer MD Primary Care Provider [phone] Encounter Details Date Type Department Care Team ([facility] st Contact Info) Description 11/13/2017 Results Only [facility]- [facility] [phone] Migel Aguilar, [address] [address] Social History Tobacco Use Types Packs/Day [...] Date/Time Associated Diagnosis Comments SURGICAL PATHOLOGY Routine 11/13/2017 22 :02 EDT documented in this encounter Results * SURGICAL PATHOLOGY (11/13/2017 22:02 EDT) Pathology Report: SURGICAL PATHOLOGY REPORT Reports generated via electronic interface contain original data; however they are lacking the format of the original report. Caution should be taken when reading/interpreti ng unformatted reports. Name: ? SUHAIL PENA ? Accession #: ? [id number] ? : ? 1950 (Age: 66) ??M ? Collect Date: ? 11/13/2017 ? Location: ? [facility] ? Receive Date: ? 11/13/2017 ? Provider: MIGEL METCALFM Copy to: LILLI EDWARDS MD ? Final Pathologic Diagnosis: TOE, RIGHT 4TH, AMPUTATION: - ??Digit with acute ulceration and cellulitis. - ??No definitive acute osteomyelitis identified. - ??Surgical resection margin viable. Document reviewed and electronically signed by: PARRISH CASPER MD Report ??Date: 11/19/2017 13:48 By the signature above, the attending physician certifies that he/she has personally conducted a gross and/or microscopic examination of the described specimens and rendered or confirmed the above diagnosis. Specimen(s) Received: Rt fourth toe diabetic ulcer Clinical History: Osteomyelitis rt fourth toe ? Gross Description: ? Received in formalin labelled with proper patient identification (initials R, C) and Rt 4th toe diabetic ulcer is a single digit (6.2 x 2.7 x 2.5 cm) that has been disarticulated from the proximal interphalangeal joint. At the lateral distal aspect is a taylor-brown encrusted lesion (1.6 x 1.6 x 0.3 cm) that is 1.7 cm from the nearest skin and soft tissue margins, inked blue. The underlying bone cut with difficulty. Barrel Painter sections of lesion to the skin and soft tissue margins are submitted in 1 and 2, and additional underlying bone is submitted in 3 for acid decalcification. GARFIELD Bellamy ([facility]) 11/14/2017 3:25 PM End of Report [facility] 11/13/2017 22:0 2 EDT 11/13/2017 22:02 EDT us Migel Aguilar DPSheryl PATHOLOGY ORDERABLES Fin al Result [facility] [address] [place] [address] documented in this encounter Visit Diagnoses Not on filedocumented in this encounter Care Teams Datastage Consultant Relationship Specialty Start Date End Date Lilli Packer MD [address] [place] [address] PCP - General 11/20/16 documented as of this encounter
--- OUTSIDE RECORDS SUMMARY | 2024-01-15 17:04 | XMS_ITS | Encounter Summary ---
Author Organization [facility] Address [address] [place] [address] Care Team Providers Care Mexican Food Maker Name Role Phone Unknown, Provider Primary Care Provider Unava ilable Encounter Details Date Type Department Care Team ([facility] st Contact Info) Description 04/15/2010 Results Only [facility] Laboratory Services - [facility] ([facility]) [address] [place], [place] [id number] Migel Aguilar, IVY [address] [place] [address] Social History Tobacco Use Types [...] Date/Time Associated Diagnosis Comments SURGICAL PATHOLOGY Routine 04/15/2010 0:00 EST documented in this encounter Results * SURGICAL PATHOLOGY (04/15/2010 0:00 EST) Pathology Report: SURGICAL PATHOLOGY REPORT ? Reports generated via electronic interface contain original data; ? however they are lacking the format of the original report. ? Caution should be taken when reading/interpreti ng unformatted reports. ? Name: ? SUHAIL PENA ? Accession #: ? [id number] ? : ? 1950 (Age: 59) ??M ? Collect Date: ? 04/15/2010 ? Location: ? [facility] ? Receive Date: ? 04/17/2010 ? Provider: MIGEL S SCHEIN DPM ? Copy to: ? Final Pathologic Diagnosis: ? Great toe, right foot, amputation: ? 1. ?Ischemic and necrotic skin ulceration. ? 2. ? Acute osteomyelitis. ??See comment. ? 3. ? Margins of resection appear viable. ? Comment: ? Histologic sections through the ulcerated skin down into the bone ? demonstrate acute and necrotizing inflammation. ??There are foci with acute ? inflammation in which devitalized bone is present. ??These findings are ? compatible with acute osteomyelitis. ??However, the architecture of the bone is ?? not intact in these areas and we do not observe acute inflammation directly ? within the marrow space secondary to the inflammatory distortion and ? destruction. ??Osteomyelitis is not identified at the resection margin. ??Fungal ?? hyphae are not identified on PAS stain. ??(Dr. Washington)/mms ? Document reviewed and electronically signed by: ? ANDRADE WASHINGTON MD ? Report ??Date: 04/25/2010 16:59 ? By the signature above, the attending physician certifies that he/she has ? personally conducted a gross and/or microscopic examination of the described ? specimens and rendered or confirmed the above diagnosis. ? Specimen(s) Received: ? R great toe ? Clinical History: ? Infected R great toe; R/O osteo ? Gross Description: ? Received in formalin labelled Ruff, Christopher and Rt great toe is a ?? great toe measuring 7.2 cm from anterior to posterior, 3.2 cm from medial to ? lateral, and 2.8 cm from superior to inferior. There is a large skin defect on ?? the lateral surface measuring 3.6 x 1.9 cm. ??The skin on the inferior surface is not present. ??0.9 cm from the margin, the skin appears stoddard-brown and dusky. ??The skin at the distal tip is stoddard-white and the nail appears thickened and ridged. ?? The underlying soft tissue appears stoddard-brown and focally hemorrhagic with no ? purulent areas. ??The resection margin consists of focal tendon and cortical bone which appears uninvolved by osteomyelitis. ??Sectioning reveals stoddard-brown soft ?? tissue and firm cortical bone. ??A cross section from the dusky skin area is ? submitted as (A1) and the resection margin is submitted as (A2) following ? decalcification. ??(Dr. Webb)/mms ? End of Report ? [facility] 04/15/2010 04/17/2010 18: 08 EST us Migel Aguilar DPM PATHOLOGY ORDERABLES Fin al Result [facility] [address] [place] [address] documented in this encounter Visit Diagnoses Not on filedocumented in this encounter Care Teams Mexican Food Maker Relationship Specialty Start Date End Date Unknown, Provider, PCP - General 04/17/10 12/18/10 documented as of this encounter
--- OUTSIDE RECORDS SUMMARY | 2024-01-15 17:04 | XMS_ITS | Encounter Summary ---
Author Organization [facility] Address [address] [place] [address] Care Team Providers Care Grinder Gear Name Role Phone Lilli Packer MD Primary Care Provider [phone] Encounter Details Date Type Department Care Team ([facility] st Contact Info) Description 05/29/2017 Results Only [facility] [phone] Migel Aguilar, [address] [address] Social History Tobacco Use Types [...] Date/Time Associated Diagnosis Comments SURGICAL PATHOLOGY Routine 05/29/2017 18 :30 EDT documented in this encounter Results * SURGICAL PATHOLOGY (05/29/2017 18:30 EDT) Pathology Report: SURGICAL PATHOLOGY REPORT Reports generated via electronic interface contain original data; however they are lacking the format of the original report. Caution should be taken when reading/interpret ing unformatted reports. Name: ? SUHAIL PENA ? Accession #: ? [id number] ? : ? 1950 (Age: 66) ??M ? Collect Date: ? 05/29/2017 ? Location: ? [facility] ? Receive Date: ? 05/29/2017 ? Provider: MIGEL AGUILAR DPM Copy to: LILLI APPIAH MD ? Final Pathologic Diagnosis: TOE, RIGHT 3RD, AMPUTATION: - Cutaneous ulceration (1.3 cm). - Acute osteomyelitis of distal phalanx. - Bone and soft tissue resection margins viable. Document reviewed and electronically signed by: ABBE GARCIA MD Report ??Date: 06/04/2017 10:22 By the signature above, the attending physician certifies that he/she has personally conducted a gross and/or microscopic examination of the described specimens and rendered or confirmed the above diagnosis. Specimen(s) Received: Right third toe Clinical History: Osteomyelitis right third toe with DM ulcer tip of digit Gross Description: ? Received in formalin labelled with proper patient identification (initials R, C) and right third toe is a distal toe amputation (5.3 cm from proximal to distal x 2.1 cm from medial to lateral x 2.4 from dorsal to plantar) that has been amputated through the metatarsal-phalan geal joint articular surface. ? On the distal tip (anterior surface) there is a stoddard-brown granular ulcer with heaped up margins, 1.3 x 1.0 cm. The underlying bone is focally stoddard and softened. The ulcer is 2.1 cm from the nearest soft tissue margin. A probable stoddard-yellow unguis is identified (0.1 cm in length x 1.0 cm in width x 0.1 cm in thickness). The remaining skin is stoddard-pink with a focal stoddard, scaly papule (0.4 cm in greatest dimension) located on the plantar-medial aspect. The bone at the proximal margin has a stoddard-white glistening smooth articular surface and the soft tissue at the margin appears viable. The soft tissue margin is inked blue. ? Blasting Entry Specialist sections are submitted as follows: BLOCK MARTIN 1- ??stoddard scaly papule, bisected 2- ??soft tissue margin nearest ulcer (perpendicular) 3- ??ulcer and underlying bone (submitted following regular decalcification) Dr. Anderson 05/30/2017 11:21 AM End of Report [facility] 05/29/2017 18:3 0 EDT 05/29/2017 18:30 EDT us Migel Aguilar DPM PATHOLOGY ORDERABLES Fin al Result [facility] [address] [place] [address] documented in this encounter Visit Diagnoses Not on filedocumented in this encounter Care Teams Grinder Gear Relationship Specialty Start Date End Date Lilli Packer MD [address] [place] [address] PCP - General 11/20/16 documented as of this encounter
--- OUTSIDE RECORDS SUMMARY | 2024-01-15 17:04 | XMS_ITS | Encounter Summary ---
Author Organization [facility] Address [address] [place] [address] Care Team Providers Care Academic Support Center Director Name Role Phone Lilli Packer MD Primary Care Provider [phone] Encounter Details Date Type Department Care Team (Late st Contact Info) Description 10/09/2017 Results Only [facility] [phone] Migel Arrieta MD [address] [place] [address] [place] [address] Social History Tobacco Use Types [...] Date/Time Associated Diagnosis Comments SURGICAL PATHOLOGY Routine 10/09/2017 23 :15 EDT documented in this encounter Results * SURGICAL PATHOLOGY (10/09/2017 23:15 EDT) Pathology Report: SURGICAL PATHOLOGY REPORT Reports generated via electronic interface contain original data; however they are lacking the format of the original report. Caution should be taken when reading/interpret ing unformatted reports. Name: ? SUHAIL PENA ? Accession #: ? [id number] ? : ? 1950 (Age: 66) ??M ? Collect Date: ? 10/09/2017 ? Location: ? [facility] ? Receive Date: ? 10/09/2017 ? Provider: MIGEL ARRIETA MD Copy to: LILLI PACKER MD ? Final Pathologic Diagnosis: DISTAL CLAVICLE AND SUBACROMIAL BURSA, LEFT, EXCISION - Articular surface with degenerative changes and sub-chondral marrow fibrosis. - Focal marrow with maturing hematopoiesis. - Synovial tissue with reactive stromal changes and vascular congestion with minimal chronic inflammation. - Portion of benign skeletal muscle. Document reviewed and electronically signed by: INDRA GAGE MD Report ??Date: 10/17/2017 18:56 By the signature above, the attending physician certifies that he/she has personally conducted a gross and/or microscopic examination of the described specimens and rendered or confirmed the above diagnosis. Specimen(s) Received: Left distal clavicle and subacromial bursa Clinical History: L rotator cuff tear secondary to impingement from AC joint and anterior inferior acromion Gross Description: ? Received in formalin labelled with proper patient identification (initials R, C) and distal clavicle L & bursa is a stoddard-brown ragged portion of bone (2.4 x 2.0 x 1.2 cm). The articular surfaces are smooth to granular and roughened. Cut surfaces are trabeculated stoddard-white and cut with difficulty. Also received is a 2.0 x 1.0 x 0.4 cm aggregate of stoddard-pink rubbery tissue fragments. A field service representative section of bone is submitted in 1 following acid decalcification, and the soft tissue fragments are entirely submitted in 2. GARFIELD Donald (ASCP) 10/10/2017 9:35 AM End of Report [facility] 10/09/2017 23:1 5 EDT 10/09/2017 23:15 EDT us Migel Arrieta MD PATHOLOGY ORDERABLES Final Result [facility] [address] [place] [address] documented in this encounter Visit Diagnoses Not on filedocumented in this encounter Care Teams Academic Support Center Director Relationship Specialty Start Date End Date Lilli Packer MD [address] [place] [address] PCP - General 11/20/16 documented as of this encounter
--- OUTSIDE RECORDS SUMMARY | 2024-01-15 17:04 | XMS_ITS | Encounter Summary ---
Author Organization [facility] Address [address] [place] [address] Care Team Providers Care Supervising Film Or Videotape Editor Name Role Phone Lilli Packer MD Primary Care Provider [phone] Encounter Details Date Type Department Care Team (Latest Contact Info) Description 06/09/2018 15:20 EDT - 06/09/2018 23:59 EDT Hospital Encounter [address] [address] Unknown, Provider, MD Discharge Disposition: Home or [...] Code Departure Means Destination Home or Self Group Home documented in this encounter Plan of Treatment Not on file documented as of this encounter Visit Diagnoses Not on filedocumented in this encounter Care Teams Supervising Film Or Videotape Editor Relationship Specialty Start Date End Date Lilli Packer MD [address] [place] [address] PCP - General 11/20/16 documented as of this encounter
--- OUTSIDE RECORDS SUMMARY | 2024-01-15 17:04 | XMS_ITS | Encounter Summary ---
Author Organization [facility] Address [address] [place] [address] Care Team Providers Care Chef French Name Role Phone Lilli Packer MD Primary Care Provider Encounter Details Date Type Department Care Team (Latest Contact Info) Description 10/09/2017 13:21 EDT - 10/09/2017 23:59 EDT Hospital Encounter [address] [address] Unknown, Provider, MD Discharge Disposition: Auto Discharge Social History Tobacco Use Types Packs/Day Years Used Date Smoking Tobacco: Never Assessed Sex and Gender Information Value Date Recorded Sex Assigned at Not on file Legal Sex Male 18:51 EST Gender Identity Not on file Sexual Orientation Not on file documented as of this encounter Discharge Disposition Disposition Code Departure Means Destination Auto Discharge Home documented in this encounter Plan of Treatment Not on file documented as of this encounter Visit Diagnoses Not on filedocumented in this encounter Care Teams Chef French Relationship Specialty Start Date End Date Lilli Packer MD [address] [place] [address] PCP - General 11/20/16 documented as of this encounter
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
--- OUTSIDE RECORDS SUMMARY | 2024-01-15 17:04 | XMS_ITS | Encounter Summary ---
Author Organization [facility] Address [facility] [place] [address] Care Team Providers Care Hotel Service Manager Name Role Phone Remberto Bernabe DO Primary Care Provider [phone] Encounter Details Date Type Department Care Team (Late st Contact Info) Description 04/27/2019 Telephone [place] [address] Julissa Vargas Social History Tobacco Use Types Packs/Day Years Used Date Smoking Tobacco: Former Smokeless Tobacco: Never Sex and Gender Information Value Date Recorded Sex Assigned at Not on file Gender Identity Not on file Sexual Orientation Not on file documented as of this encounter Miscellaneous Notes * Telephone Encounter - Julissa Vargas - 04/27/2019 11:15 AM EDT 2YR F/U FLORENTIN S/P TOE AMP, DIABETIC, PVD KNOW DIABETIC FOOT DISEASE Called patient to to schedule, but states that he does not have the money to get down here, and hisinsurance has as out of network. Will follow with PCP. If anything changes he will call to schedule. documented in this encounter Plan of Treatment Not on file documented as of this encounter Visit Diagnoses Not on filedocumented in this encounter Care Teams Hotel Service Manager Relationship Specialty Start Date End Date Remberto Bernabe DO [facility] [address] [place] [address] PCP - General 01/10/10 documented as of this encounter
--- OUTSIDE RECORDS SUMMARY | 2024-01-15 17:04 | XMS_ITS | Encounter Summary ---
Author Organization [facility] Address [address] [facility] [place] [address] Care Team Providers Care Karate Black Belt Name Role Phone Remberto Bernabe DO Primary Care Provider [phone] Encounter Details Date Type Department Care Team (Late st Contact Info) Description 10/27/2010 Interpretation Only Radiology [address] [facility] [place] [address] Unknown None Social History Tobacco Use Types Packs/Day Years Used Date Smoking Tobacco: Never Assessed Sex and Gender Information Value Date Recorded Sex Assigned at Not on file Gender Identity Not on file Sexual Orientation Not on file documented as of this encounter Plan of Treatment Not on file documented as of this encounter Procedures Procedure Name Priority Date/Time Associated Diagnosis Comments XR FLUORO NO RAD <1HR - RADIOLOGY USE Routine 10/27/2010 9:27 AM EDT documented in this encounter Results * XR Fluoro <1Hr - Radiology Use (10/27/2010 9:27 AM EDT) Anatomical Region Laterality Modality N/A Radiographic Julissa ging 10/27/2010 9:27 AM EDT Narrative 10/27/2010 9:27 AM EDT APD Historical Result Principal Manager Program Management: ??SOL ??CATHLEEN FLUOROSCOPY: A total of 24 seconds of fluoroscopic assistance was provided to Dr Greenberg for a procedure. ?? No Radiologist was present. ??Seven digital C-arm images were archived. Sol Connolly MD KG/mn [id number] CC: Procedure Note Unknown - 08/19/2018 APD Historical Result Principal Manager Program Management: SOL CONNOLLY FLUOROSCOPY: A total of 24 seconds of fluoroscopic assistance was provided to Treasure for a procedure. No Radiologist was present. Seven digital C-arm images were archived. Sol Connolly MD KG/mn [id number] CC: Unknown IMG FLUORO ORDERABLE S documented in this encounter Visit Diagnoses Not on filedocumented in this encounter Care Teams Karate Black Belt Relationship Specialty Start Date End Date Remberto Bernabe DO [facility] [address] [place] [address] PCP - General 01/10/10 documented as of this encounter
--- OUTSIDE RECORDS SUMMARY | 2024-01-15 17:04 | XMS_ITS | Encounter Summary ---
Author Organization [facility] Address [address] [place] [address] Care Team Providers Care Metal Furniture Assembler Name Role Phone Lilli Packer MD Primary Care Provider Encounter Details Date Type Department Care Team (Late st Contact Info) Description 10/23/2023 Lab Requisition [facility] Pathology & Laboratory Medicine - [facility] [address] [place] [address] Lamont Siu MD [address] [place] [address], [address] [place] [address] Encounter for other general examination Social History Tobacco Use Types Packs/Day Years [...] :50 EDT Encounter for other general examination documented in this encounter Results * SURGICAL PATHOLOGY (10/20/2023 22:50 EDT) Note to Patient The following pathology results have been interpreted by your pathologist and may be available to you before your health provider has had the opportunity to review them. Please allow time for your provider to receive these results and explore management options, if applicable. 10/28/2023 11:01 [facility] Final Diagnosis A. GALLBLADDER, CHOLECYSTECTOMY: - Acute gangrenous cholecystitis. - Cholelithiasis. 10/28/2023 11:01 [facility] Attestation There was significant resident/fellow involvement in the diagnostic evaluation of this case. By the signature below, the attending physician certifies that they have personally conducted a gross and/or microscopic examination of the described specimens and rendered or confirmed the above diagnosis. 10/28/2023 11:01 [facility] at [address] Clinical History Acute cholecystitis 10/28/2023 11:01 [facility] Gross Description A. Received in [...] aggregating 3.0 x 3.0 x 1.0 cm. Media Analytics Manager sections are submitted in A1. GARFIELD DHILLON(ASCP) 10/23/2023 9:42 10/28/2023 11:01 [facility] Resident/Teddy w: Geremias Lewis DO 10/28/2023 11:01 [facility] Performing Lab [facility] 10/28/2023 11:01 [facility] Scanned Images 10/28/2023 11:01 [facility] Tissue GALLBLADDER STRUCTURE / Unknown 10/20/2023 22:50 EDT 10/23/2023 8:37 EDT us Lamont Siu MD PATHOLOGY ORDERABLES Final Resu lt [facility] [address] [place] [address] documented in this encounter Visit Diagnoses Diagnosis Encounter for other general examination documented in this encounter Care Teams Metal Furniture Assembler Relationship Specialty Start Date End Date Lilli Packer MD [address] [place] [address] PCP - General 11/20/16 documented as of this encounter
--- OUTSIDE RECORDS SUMMARY | 2024-01-15 17:04 | XMS_ITS | Encounter Summary ---
Author Organization [facility] Address [address] [place] [address] Care Team Providers Care Blood Typer Name Role Phone Lilli Packer MD Primary Care Provider [phone] Encounter Details Date Type Department Care Team (Late st Contact Info) Description 10/16/2021 Lab Requisition [facility] Pathology & Laboratory Medicine - [facility] [address] [place], [place] [address] Outr Resulting Lab, Provider Social History Tobacco Use Types Packs/Day Years [...] Procedure Name Priority Date/Time Associated Diagnosis Comments PSA TOTAL, DIAGNOSTIC Routine 10/16/2021 12:30 EDT documented in this encounter Results * PSA TOTAL, DIAGNOSTIC (10/16/2021 12:30 EDT) PSA 0.1 <=6.5 ng/mL 10/17/2021 18:17 EDT [facility] Blood VENOUS BLOOD / Unknown 10/16/2021 12:30 EDT 10/17/2021 16:59 EDT Narrative [facility] - 10/17/2021 18:17 EDT NOTE: Serum PSA concentration should not be interpreted as absolute evidence for the presence or absence of malignant disease. Assayed on Siemens ADVIA Centaur XPT using chemiluminescent technology.??Values obtained by using different assay methods cannot be used interchangeably. us Provider Outr Resulting Lab CHEMISTRY & BLOOD GA S ORDERABLES Final Result [facility] [address] [place] [address] documented in this encounter Visit Diagnoses Not on filedocumented in this encounter Care Teams Blood Typer Relationship Specialty Start Date End Date Lilli Packer MD [address] [place] [address] PCP - General 11/20/16 documented as of this encounter
--- OUTSIDE RECORDS SUMMARY | 2024-01-15 17:04 | XMS_ITS | Encounter Summary ---
Author Organization [facility] Address [address] [place] [address] Care Team Providers Care Gaming Associate Name Role Phone Lilli Packer MD Primary Care Provider [phone] Encounter Details Date Type Department Care Team (Latest Contact Info) Description 11/13/2017 14:16 EDT - 11/13/2017 23:59 EDT Hospital Encounter [address] [address] Unknown, Provider, MD Discharge Disposition: Home or [...] Code Departure Means Destination Home or Self [facility] documented in this encounter Plan of Treatment Not on file documented as of this encounter Visit Diagnoses Not on filedocumented in this encounter Care Teams Gaming Associate Relationship Specialty Start Date End Date Lilli Packer MD [address] [place] [address] PCP - General 11/20/16 documented as of this encounter
--- OUTSIDE RECORDS SUMMARY | 2024-01-15 17:04 | XMS_ITS | Encounter Summary ---
Author Organization [facility] [place] [address] Care Team Providers Care University Relations Recruiter Name Role Phone Remberto Bernabe DO Primary Care Provider [phone] Encounter Details Date Type Department Care Team (Late st Contact Info) Description 03/27/2019 Orders [place] [address] Dori Laughlin CMA PVD (peripheral vascular disease) with claudication; Ulcer of toe of right foot, unspecified ulcer stage Social History Tobacco Use Types Packs/Day Years [...] disease) with claudication Peripheral vascular disease, unspecified Ulcer of toe of right foot, unspecified ulcer stage documented in this encounter Care Teams University Relations Recruiter Relationship Specialty Start Date End Date Remberto Bernabe DO [facility] [address] [place] [address] PCP - General 01/10/10 documented as of this encounter
--- OUTSIDE RECORDS SUMMARY | 2024-01-15 17:04 | XMS_ITS | Encounter Summary ---
Author Organization [facility] Address [address] [place] [address] Care Team Providers Care Compensation Advisor Name Role Phone Carmen Benavides SALESPERSON [employer]IST [employer]PLIES Primary Care Provider [phone] Encounter Details Date Type Department Care Team (Late st Contact Info) Description 06/11/2016 Results Only [facility] [phone] Virgilio Lopez, DO [address] [place] [address] Social History Tobacco Use Types [...] Date/Time Associated Diagnosis Comments SURGICAL PATHOLOGY Routine 06/11/2016 20 :41 EDT documented in this encounter Results * SURGICAL PATHOLOGY (06/11/2016 20:41 EDT) Pathology Report: SURGICAL PATHOLOGY REPORT Reports generated via electronic interface contain original data; however they are lacking the format of the original report. Caution should be taken when reading/interpret ing unformatted reports. Name: ? SUHAIL PENA ? Accession #: ? [id number] ? : ? 1950 (Age: 65) ??M ? Collect Date: ? 06/11/2016 ? Location: ? [facility] ? Receive Date: ? 06/12/2016 ? Provider: VIRGILIO LOPEZ DO Copy to: SHEYLA ERICKSON MD ? Final Pathologic Diagnosis: APPENDIX, APPENDECTOMY: - ??Acute appendicitis with periappendicitis. Document reviewed and electronically signed by: LISSA FERGUSON MD Report ??Date: 06/15/2016 12:36 By the signature above, the attending physician certifies that he/she has personally conducted a gross and/or microscopic examination of the described specimens and rendered or confirmed the above diagnosis. Specimen(s) Received: Appendix Clinical History: Acute appendicitis Gross Description: ? Received in formalin labelled with proper patient identification (initials R C) and appendix is a previously disrupted appendix (reconstructed 7.5 cm in length x 0.4-0.8 cm in diameter). The proximal margin is stapled and inked blue. ? The serosa is taylor-purple and hemorrhagic. At the central portion of the appendix a 0.7 cm defect exposes the lumen and a fecalith. The distal end is surrounded by a thickened taylor exudate with a previously transected distal tip. The cut surface is hemorrhagic with a lumen ranging from 0.5 x 1.1 cm. ? The section adjacent to the proximal stapled margin, two registered representative cross sections and one half of the longitudinally bisected distal tip are submitted in 1. GARFIELD Bellamy (ASCP) 06/13/2016 9:17 AM End of Report [facility] 06/11/2016 20:4 1 EDT 06/12/2016 20:41 EDT us Virgilio Lopez DO PATHOLOGY ORDERABLES Final Res ult [facility] [address] [place] [address] documented in this encounter Visit Diagnoses Not on filedocumented in this encounter Care Teams Compensation Advisor Relationship Specialty Start Date End Date Carmen Benavides FNP [address] [place] [address] PCP - General 04/18/12 11/19/16 documented as of this encounter
--- OUTSIDE RECORDS SUMMARY | 2024-01-15 17:04 | XMS_ITS | Referral Summary ---
Author Organization [facility] Address [address] [place] [address] Care Team Providers Care Wind Turbine Mechanical Engineer Name Role Phone Lilli Packer MD Primary Care Provider [phone] Encounters Date Type Department Care Team Description 10/23/2023 Lab Requisition [facility] Pathology & Laboratory Medicine - [facility] [address] [place] [address] Lamont Siu MD Encounter for other general [...] Orientation Not on file Plan of Treatment Not on file Procedures Procedure Name Priority Date/Time Associated Diagnosis [...] explore management options, if applicable. 10/28/2023 11:01 EDT [facility] Final Diagnosis A. GALLBLADDER, CHOLECYSTECTOMY: - Acute gangrenous cholecystitis. - Cholelithiasis. 10/28/2023 11:01 EDT [facility] Attestation There was significant resident/fellow involvement in the diagnostic evaluation of this case. By the signature below, the attending physician certifies that they have personally conducted a gross and/or microscopic examination of the described specimens and rendered or confirmed the above diagnosis. 10/28/2023 11:01 [facility] at [address] Clinical History Acute cholecystitis 10/28/2023 11:01 [facility] Gross Description A. Received in [...] aggregating 3.0 x 3.0 x 1.0 cm. Operations Welder sections are submitted in A1. GARFIELD DHILLON(ASCP) 10/23/2023 9:42 10/28/2023 11:01 [facility] Resident/Teddy w: Geremias Lewis DO 10/28/2023 11:01 [facility] Performing Lab [facility] 10/28/2023 11:01 [facility] Scanned Images 10/28/2023 11:01 [facility] Tissue GALLBLADDER STRUCTURE / Unknown 10/20/2023 22:50 EDT 10/23/2023 8:37 EDT us Lamont Siu MD PATHOLOGY ORDERABLES Final Resu lt [facility] [address], [place] [id number] from Last 3 Months Insurance MEDICARE Care Teams Wind Turbine Mechanical Engineer Relationship Specialty Start Date End Date Lilli Packer MD [address] [place] [address] PCP - General 11/20/16
--- OUTSIDE RECORDS SUMMARY | 2024-01-15 17:04 | XMS_ITS | Encounter Summary ---
Author Organization Pending Sale To [facility] Address [facility] [place] [address] Care Team Providers Care Lab Animal Technician Name Role Phone Remberto Bernabe Primary Care Provider [phone] Encounter Details Date Type Department Care Team (Late st Contact Info) Description 06/04/2017 Orders [place] [id number] Dora Quinn RN Ulcer of toe of right foot, unspecified ulcer stage Social History Tobacco Use Types Packs/Day Years Used Date Smoking Tobacco: Never Assessed Sex and Gender Information Value Date Recorded Sex Assigned at Not on file Gender Identity Not on file Sexual Orientation Not on file documented as of this encounter Plan of Treatment Not on file documented as of this encounter Results * FLORENTIN, legs, multiple levels (06/13/2017 9:56 AM EDT) VB Text Report Department: Vascular Surgery Lab Patient: [id number] (SUHAIL PENA) CPT: 79406 ICD10: I73.89;L97.51 9 Referring Physician: BOBBI VELIZ MD ?? Phone: Indications: ??LEFT BKA, RIGHT great toe and [...] ??Triphasic ? Fourth Toe ? 81 ? 0.60 ?? Left ? Pressure (mm Hg) ??Waveform ?? Brachial Artery ?134 ? Common Femoral Artery ?Triphasic ?? Interpretatio n: RIGHT: Mild lower extremity arterial occlusive disease. Unable to obtain toe pressure on 2nd and 5th toes. Comparison: ??No previous study in our vascular lab database for comparison. Electronicall y Signed by: AGUSTÍN WHALEY M.D. on 2017-06-13 11:28:02 AM [facility] VB Text Report End of Report [facility] 06/13/2017 9:56 AM EDT Bobbi Veliz MD VASCULAR ORDERABLES [facility] documented in this encounter Visit Diagnoses Diagnosis Ulcer of toe of right foot, unspecified ulcer stage documented in this encounter Care Teams Lab Animal Technician Relationship Specialty Start Date End Date Remberto Bernabe DO [facility] [address] [place] [address] PCP - General 01/10/10 documented as of this encounter
--- OUTSIDE RECORDS SUMMARY | 2024-01-15 17:04 | XMS_ITS | Encounter Summary ---
Author Organization [facility] Address [facility] [place] [address] Care Team Providers Care Moose Hunter Name Role Phone Remberto Bernabe Primary Care Provider [phone] Encounter Details Date Type Department Care Team (Late st Contact Info) Description 11/14/2005 [place] [id number] Rodolfo Blanco DO [address] [place] [address] Social History Tobacco Use Types Packs/Day Years Used Date Smoking Tobacco: Never Assessed Sex and Gender Information Value Date Recorded Sex Assigned at Not on file Gender Identity Not on file Sexual Orientation Not on file documented as of this encounter Plan of Treatment Not on file documented as of this encounter Procedures Procedure Name Priority Date/Time Associated Diagnosis Comments SURGICAL PATHOLOGY REPORT Routine 11/14/2005 6:44 PM EDT documented in this encounter Results * Surgical Pathology Report (11/14/2005 6:44 PM EDT) Surgical Pathology Report [id number] ? Location: The signing pathologist has (i) examined the relevant preparation(s) for the specimen(s) and (ii) rendered or confirmed the diagnosis(es). . ?Pathology Surgical Pathology Final Report Clinical Information Specimen Submitted: A - Lt lower leg. Clinical History: Referring Identifier: ??[id number] Clinical Diagnosis: Chronic malunion Lt leg. Gross Description Labeled/Fixative: ? LT lower leg, fresh. Qty/Size/Weight: ?Single 26.0-cm left foot with an attached left lower ?extremity. Tissue Description: ?? Margins: ? Composed of viable, glistening, yellow adipose and ?red muscle. ??The tibia and fibula at the resection ?margin are flush with the soft tissue. ?? Skin: ?Martin with scant hair. ??The medial surface of the ankle ?is diffusely reddened to purple. ??In addition at the lateral heel there is an area of blue discoloration. ??The toenails show yellow thickening but are otherwise unremarkable. ?? Vessels: ? Unremarkable. ?? Other: ? There is a 1.2 x 0.7 x 0.3-cm, firm, rubbery to hard ?nodule at the dorsal surface of the lateral foot. Sections/Processi ng: ??(1) the proximal resection margin; (2) maintenance representative ?vessels; (3) purple discolored skin at the medial ?aspect of the ankle; (4) the dorsal nodule. ??(R4) ?aje/CAM Microscopic Description Slides reviewed, microscopic description not recorded. Diagnosis Leg, left lower, below knee amputation: ?? Dystrophic calcification of soft tissues of lateral foot. ??Focal scar, ??and atherosclerosis of a small arteriole. Viable resection margins. CR-0 11/19/05 [facility] 11/19/05 Verified by: ? Deb dRz, DO ?Pathologist ?(Electronic Signature) The attending pathologist whose signature appears on this report has reviewed all diagnostic slides and has edited the gross and/or microscopic portion of the report in rendering the final pathologic diagnosis. JASIEL RAMIREZADILIA 11/14/2005 6:44 PM EDT Narrative Resulting Agency Comment Spec In Lab / [facility] Rodolfo Blanco DO PATHOLOGY/CYTOLOGY O RDERABLES JASIEL SANDOVAL documented in this encounter Visit Diagnoses Not on filedocumented in this encounter Care Teams Moose Hunter Relationship Specialty Start Date End Date Remberto Bernabe DO [facility] [address] [place] [address] PCP - General 01/10/10 documented as of this encounter
--- OUTSIDE RECORDS SUMMARY | 2024-01-15 17:04 | XMS_ITS | Encounter Summary ---
Author Organization [facility] Address [address] [place] [address] Care Team Providers Care Main Line Assembler Name Role Phone Carmen Benavides Primary Care Provider [phone] Encounter Details Date Type Department Care Team (Latest Contact Info) Description 06/11/2016 22:45 EDT - 06/11/2016 23:59 EDT Hospital Encounter [address] [address] Unknown, Provider, MD Discharge Disposition: Home or [...] Code Departure Means Destination Home or Self [facility] documented in this encounter Plan of Treatment Not on file documented as of this encounter Visit Diagnoses Not on filedocumented in this encounter Care Teams Main Line Assembler Relationship Specialty Start Date End Date Carmen Benavides FNP [address] [place] [address] PCP - General 04/18/12 11/19/16 documented as of this encounter
--- OUTSIDE RECORDS SUMMARY | 2024-01-15 17:04 | XMS_ITS | Encounter Summary ---
Author Organization [facility] Address [address] [place] [address] Care Team Providers Care Block Splitter Operator Name Role Phone Carmen Benavides CONSTRUCTION IRONWORKER Primary Care Provider [phone] Encounter Details Date Type Department Care Team ([facility] st Contact Info) Description 11/16/2016 Results Only [facility] [phone] Migel Aguilar, IVY [address] [place] [phone] Social History Tobacco Use Types Packs/Day [...] Date/Time Associated Diagnosis Comments SURGICAL PATHOLOGY Routine 11/16/2016 8:36 EDT documented in this encounter Results * SURGICAL PATHOLOGY (11/16/2016 8:36 EDT) Pathology Report: SURGICAL PATHOLOGY REPORT Reports generated via electronic interface contain original data; however they are lacking the format of the original report. Caution should be taken when reading/interpret ing unformatted reports. Name: ? SUHAIL PENA ? Accession #: ? [id number] ? : ? 1950 (Age: 66) ??M ? Collect Date: ? 11/16/2016 ? Location: ? [facility] ? Receive Date: ? 11/16/2016 ? Provider: MIGEL METCALFM Copy to: SHEYLA ERICKSON MD ? Final Pathologic Diagnosis: RIGHT FOOT, 2ND METATARSAL HEAD, AMPUTATION: - ??Unremarkalbe bone. ??Negative for osteomyelitis. ?? Document reviewed and electronically signed by: ABBE GARCIA MD Report ??Date: 11/23/2016 15:04 By the signature above, the attending physician certifies that he/she has personally conducted a gross and/or microscopic examination of the described specimens and rendered or confirmed the above diagnosis. Specimen(s) Received: 2nd met head, right foot and bone prox phalanx Clinical History: Diabetic ulcer, metatarsalgia Gross Description: ? Received in formalin labelled with proper patient identification (initials R, C) and 2nd metatarsal head, right foot are multiple irregular fragments of firm stoddard-yellow bone with a small amount of associated stoddard-white soft tissue. Received in the same container is an ovoid piece of bone measuring 2.5 x 1.5 x 1.5 cm, consistent with metatarsal head. The articular surface is smooth as is the resection margin. Sectioning reveals firm, stoddard-yellow trabecular bone with no discernible lesions. ??Screen Making Technician sections are submitted for acid decalcification as follows: BLOCK MARTIN 1- ??section of metatarsal head, margin inked blue 2- ??member service representative section of additional segment of bone Dr. Vega 11/16/2016 End of Report [facility] 11/16/2016 8:36 EDT 11/16/2016 8:36 EDT us Migel Aguilar DPSheryl PATHOLOGY ORDERABLES Fin al Result [facility] [address] [place] [address] documented in this encounter Visit Diagnoses Not on filedocumented in this encounter Care Teams Block Splitter Operator Relationship Specialty Start Date End Date Carmen Benavides FNP [address] [place] [address] PCP - General 04/18/12 11/19/16 documented as of this encounter
--- OUTSIDE RECORDS SUMMARY | 2024-01-15 17:04 | XMS_ITS | Encounter Summary ---
Author Organization [facility]ending [facility] To [place] [address] Care Team Providers Care Jig And Fixture Builder Name Role Phone SrinivasaRemberto leavitt Primary Care Provider [phone] Reason for Visit * Consultation (Routine) - Specialty Diagnoses / Procedures Referred By Nadya wolfe Referred To Contact Vascular Surgery Diagnoses Ulceration w/ osteomyelitis right third toe Migel Aguilar, DPM [address] [place] [address] [facility] [address] [place] [address] Referral ID Status Reason Start Date Expiration Date V isits Requested Visits Authorized [id number] Consult, Test & Treat PCP Updated and/or Approved 05/24/2017 05/24/2018 6 6 Encounter Details Date Type Department Care Team (Latest Contact Info) Description 06/13/2017 9:53 AM EDT - 06/13/2017 11:59 PM EDT Hospital Encounter [place] [address] Gavino Siu, RVT Ulcer of toe of right foot, unspecified ulcer stage Discharge Disposition: Home Social History Tobacco Use [...] Procedure Name Priority Date/Time Associated Diagnosis Comments FLORENTIN, LEGS, MULTIPLE LEVELS Routine 06/13/2017 9:56 AM EDT Ulcer of toe of right foot, unspecified ulcer stage documented in this encounter Results * FLORENTIN, legs, multiple levels (06/13/2017 9:56 AM EDT) VB Text Report Department: Vascular Surgery Lab Patient: [id number] (SUHAIL PENA) CPT: 09773 ICD10: I73.89;L97.51 9 Referring Physician: BOBBI VELIZ [...] stage documented in this encounter Care Teams Jig And Fixture Builder Relationship Specialty Start Date End Date Remberto Bernabe DO [facility] [address] [place] [address] PCP - General 01/10/10 documented as of this encounter
--- OUTSIDE RECORDS SUMMARY | 2024-01-15 17:04 | XMS_ITS | Encounter Summary ---
Author Organization [facility] [place] [address] Care Team Providers Care Beam House Inspector Name Role Phone Remberto Bernabe DO Primary Care Provider [phone] Encounter Details Date Type Department Care Team (Late st Contact Info) Description 12/18/2023 3:05 PM EDT Telehealth [place] [address] Telehealth, Neurology None Social History Tobacco Use [...] on filedocumented in this encounter Care Teams Beam House Inspector Relationship Specialty Start Date End Date Remberto Bernabe DO [facility] [address] [place] [address] PCP - General 01/10/10 documented as of this encounter
[2024-01-15 17:38] LABS: Absolute Lymphocyte Count 1.83 10^3/uL (1.2-3.4); Platelet Count 1090 10^3/uL (130-400)
== END 2024-01-15 17:00 | disposition home or self-care (01) ==
LOC: LBN 16:59
PROVIDERS: PCP Family Medicine; Visit Provider Family Medicine
DX: E11.9 Type 2 diabetes mellitus without complications (principal)
CPT/HCPCS: 80048; 85025

== ENCOUNTER 2024-01-30 14:43 | Outpatient (REF) | payer MEDICARE, SELFPAY | END 2024-01-30 14:44 | disposition home or self-care (01) | LOC: NCHCN 14:43 | PROVIDERS: PCP Family Medicine; Visit Provider Family Medicine | DX: L97.519 Non-pressure chronic ulcer of other part of right foot with unspecified severity (principal) | CPT/HCPCS: 87077; 87070; 87186; 87205 ==

== ENCOUNTER 2024-02-03 01:25 | Outpatient (CLI) | payer MEDICARE, SELFPAY ==
--- NOTE | 2024-02-03 | DI.RAD_ITS ---
Exam(s) XR FOOT RT COMPLETE EXAM: XR FOOT RT COMPLETE CLINICAL HISTORY: ULCER RT FOOT, L97.519,? OSTEOMYELITIS,. TECHNIQUE: 2D digital imaging was performed of the right foot. Three images were obtained. AP, obl ique and lateral views were obtained. COMPARISON: CR XR foot RT complete from 11/10/2017 FINDINGS: BONES: No acute fracture is present. No bony destructive lesion is seen. There has been previous ampu tations of all 5 toes at the MTP joints. JOINTS: No dislocation present. SOFT TISSUE: No soft tissue gas is present. There is soft tissue swelling of the right foot. IMPRESSION: No radiographic evidence to suggest osteomyelitis. Follow-up as clinically appropriate. DATA REPOSITORY: RADIATION DOSE DELIVERED:
== END 2024-02-03 01:45 ==
LOC: DI 01:26
PROVIDERS: PCP Family Medicine; Visit Provider Family Medicine
DX: L97.519 Non-pressure chronic ulcer of other part of right foot with unspecified severity (principal)
CPT/HCPCS: 73630

== ENCOUNTER 2024-02-16 14:13 | Inpatient (IN) | payer MEDICARE, SELFPAY ==
[2024-02-16 14:23] VITALS: BP 101/57; PULSE 98; RESP 16; TEMP 37.1; O2SAT 98
--- NOTE | 2024-02-16 14:45 | DI.RAD_ITS ---
Exam(s) XR FOOT RT COMPLETE EXAM: XR FOOT RT COMPLETE CLINICAL HISTORY: Eval osteomylitis, ulcer R. heel and distal sole. TECHNIQUE: 2D digital imaging was performed. Three views. COMPARISON: CR XR FOOT RT COMPLETE from 02/03/2024 FINDINGS: BONES: Prior amputations of the toes. No acute fracture is present. No bony destructive lesion is se en. The plantar calcaneal spur. JOINTS: No dislocation present. SOFT TISSUE: Diffuse lower extremity swelling. Soft tissue swelling and ulcer noted at the plantar a spect at the metatarsal region. Additional soft tissue ulcer noted at the plantar aspect of the heel . No foreign body. IMPRESSION: No plain film evidence of osteomyelitis. DATA REPOSITORY: RADIATION DOSE DELIVERED:
--- NOTE | 2024-02-16 15:04 | ED.GENADUL_ITS ---
Discharge Plan Disposition Patient Disposition: Admit to [facility] Condition: Stable Discharge Details Chief Complaint: Cellulitis Clinical Impression: Diabetic ulcer of right heel, Diabetic infection of right foot, 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 of cerebrovascular accident, Atherosclerosis of arteries, Thrombocytosis, Type 2 diabetes mellitus, History of left below knee amputation, Diabetic polyneuropathy, Hyperlipidemia Admit Date/Time: 02/16/24 16:53 Admit Provider: Erich Marie Attending Provider: Erich Marie Primary Care Provider: Lilli Packer V ED Provider: Lilliana Acosta Discharge Data Discharge Date/Time-TO BE ENTERED AT DEPARTURE: 02/16/24 18:10 HPI General Mode of arrival: wheelchair . Date/Time Provider Initiated Documentation: 02/16/24 14:16 . Limitations to Documentation: no limitations . Information obtained by: patient and old records reviewed . HPI Narrative: HPI: This is a 73-year-old male patient with a past medical history significant for insulin-dependent diabetes, recent CVA with left-sided deficits, history of traumatic left BKA, and a history of right heel and sole diabetic ulcers, currently on clindamycin, who is presenting for evaluation of worsening ulcers. The patient reports that he just completed an unknown antibiotic, but is still on clindamycin which he was scheduled to be taking for a 20-day course. He is scheduled to meet with general surgery tomorrow for debridement, but today pre sented to care because the wounds, drainage, and odor are worsening. He does report a history of MRSA. The patient reports that he has not noted any fevers, has not noted any chills or spreading of the rash up his legs. He does have some swelling of his right lower extremities. States that the pain is such that he is having difficulty performing his ADLs given that his left side of his body is status post amputation with residual weakness after his recent stroke. The patient also notes a beefy red rash in his groin, for which she is concerned. He has been using barrier ointments and good hygiene without improvement. Exam: Gen: Awake and alert, in no apparent distress HEENT: Non-icteric sclera Neck: Supple Lungs: No apparent respiratory distress, normal respiratory effort. CV: Appears well perfused, heart with borderline tachycardic rate but regular rhythm, strong distal pulses Abdomen: Non-distended, soft : Groin examination supervised by SHARRI Naik, revealing beefy red induration with a few satellite lesions of the groin. MSK: Status post left BKA. Right lower extremity status post amputation of all 5 toes. He has a 2 cm ulcer at the distal aspect of the sole, with purulent drainage and visible bone, as well as an ulcer of the right heel, 3 cm with purulent drainage, mild surrounding redness. 2+ peripheral edema Skin: Visualized skin without rashes, cyanosis. Neuro: Wheelchair-bound, no facial asymmetry. Baseline left hemiparesis. Speaks in full, clear sentences. Psych: Appropriate for situation. MDM: This is a 73-year-old male patient presenting for evaluation of worsening foot ulcers. Differential includes but is not limited to diabetic ulcer, cellulitis and abscess, osteomyelitis, bacteremia/sepsis. Certainly considered failure of outpatient treatment in this patient who has completed 7 days of dual antibiotic therapy. Regarding his groin rash, I am most concerned for candidal dermatitis, though certainly excessive moisture, cellulitis, folliculitis might also be considered. I did provide the patient with a tube of nystatin for management of his groin rash as he is already trialing barrier creams. We will obtain laboratory studies to include CBC, CMP, ESR, CRP, and blood cultures. Will obtain an x-ray of the affected right foot to evaluate for osteomyelitis. ED Course: I reviewed the patient's laboratory studies, which shows a l eukocytosis to 19, with a mild anemia to 12.3. The patient's thrombocytosis is stable at 1,070,000, laboratory studies without significant electrolyte abnormalities or kidney dysfunction, glucose elevated to 294, no evidence of liver dysfunction. ESR and CRP are elevated, and blood cultures were drawn. I provided the patient with a dose of vancomycin and cefepime here in the emergency department, and reviewed his x-ray, which shows no evidence of osteomyelitis. Given the patient's failure to respond to outpatient management, it is prudent to admit him for intravenous antibiosis as well as potential debridement with surgery tomorrow. The hospitalist service is graciously accepted this patient for admission, he remained hemodynamically appropriate while under my care and was transferred from this department without incident. Lilliana Acosta MD Related Data Home Medications ?Medication ?Instructions ?Recorded ?Confirmed aspirin 81 mg chewable tablet 81 mg PO DAILY 12/25/16 02/16/24 (Aspirin Low-Strength) oxycodone 15 mg tablet 15 mg PO Q6H PRN pain 03/29/17 02/16/24 cyanocobalamin (vitamin B-12) 1,000 mcg IJ .monthly 10/03/17 02/16/24 1,000 mcg/mL injection solution melatonin 3 mg tablet 10 mg PO HS PRN 11/10/17 02/16/24 lisinopril 2.5 mg tablet 2.5 mg PO DAILY 05/23/18 02/16/24 diphenhydramine 25 2 - 3 tab PO QHS PRN 08/20/19 02/16/24 mg-acetaminophen 500 mg tablet (Tylenol PM Extra Strength) pantoprazole 40 mg tablet,delayed 40 mg PO DAILY 01/06/20 02/16/24 release cholecalciferol (vitamin D3) 50 50 mcg PO DAILY 09/05/22 02/16/24 mcg (2,000 unit) capsule ezetimibe 10 mg tablet (Zetia) 10 mg PO DAILY 09/05/22 02/16/24 gabapentin 300 mg capsule See Rx Instructions PO BID 09/14/22 02/16/24 insulin aspart U-100 100 unit/mL 1 sliding scale dose subcut 09/14/22 02/16/24 subcutaneous cartridge (Novolog .before meals PenFill U-100 Insulin aspart) docusate sodium 100 mg capsule 100 mg PO DAILY PRN 02/04/23 02/16/24 (Colace) insulin degludec 200 unit/mL (3 60 unit subcut .nightly 10/22/23 02/16/24 mL) subcutaneous pen (Tresiba FlexTouch U-200 insulin) metformin 850 mg tablet 850 mg PO .nightly 10/22/23 02/16/24 dulaglutide 3 mg/0.5 mL 3 mg subcut .WEEKLY 10/23/23 02/16/24 subcutaneous pen injector (Trulicity) acetaminophen 325 mg tablet 650 mg (2 x 325 mg) PO Q6H PRN PRN 12/20/23 02/16/24 #0 tabs clopidogrel 75 mg tablet 75 mg PO DAILY #0 tabs 12/20/23 02/16/24 insulin aspart U-100 100 unit/mL 0 unit (0 mL) subcut 12/20/23 02/16/24 (3 mL) subcutaneous pen 0800,1200,1700 #0 mL insulin glargine 100 unit/mL (3 48 unit (0.48 mL) subcut DAILY #0 12/20/23 02/16/24 mL) subcutaneous pen (Lantus mL Solostar U-100 Insulin) rosuvastatin 20 mg tablet 20 mg PO QPM #0 tabs 12/20/23 02/16/24 lorazepam 0.5 mg tablet (Ativan) 0.5 mg PO DAILY PRN 60 mins pror 02/13/24 02/16/24 to MRI #1 tab Previous Rx's ?Medication ?Instructions ?Recorded acetaminophen 325 mg tablet 650 mg (2 x 325 mg) PO Q6H PRN PRN 12/20/23 #0 tabs clopidogrel 75 mg tablet 75 mg PO DAILY #0 tabs 12/20/23 insulin aspart U-100 100 unit/mL 0 unit (0 mL) subcut 12/20/23 (3 mL) subcutaneous pen 0800,1200,1700 #0 mL insulin glargine 100 unit/mL (3 48 unit (0.48 mL) subcut DAILY #0 12/20/23 mL) subcutaneous pen (Lantus mL Solostar U-100 Insulin) rosuvastatin 20 mg tablet 20 mg PO QPM #0 tabs 12/20/23 lorazepam 0.5 mg tablet (Ativan) 0.5 mg PO DAILY PRN 60 mins pror 02/13/24 to MRI #1 tab Allergies Allergy/AdvReac Type Severity Reaction Status Date / Time levofloxacin Allergy Severe critical Verified 02/16/24 14:33 onion Allergy Severe raw onion Verified 02/16/24 14:33 Penicillins Allergy Severe Anaphylaxsi Verified 02/16/24 14:33 s Sulfa (Sulfonamide Allergy Severe Hives Verified 02/16/24 14:33 Antibiotics) sulfamethoxazole (From Allergy Severe Hives Verified 02/16/24 14:33 Bactrim) trimethoprim (From Bactrim) Allergy Severe Hives Verified 02/16/24 14:33 simvastatin AdvReac Severe faints Verified 02/16/24 14:33 General Stated Complaint: Cellulitis VIKRAM: 3 Course Vital Signs Vital signs: Vital Signs Temperature 37.1 C 02/16/24 14:23 Pulse 98 H 02/16/24 14:23 Respiratory Rate 16 02/16/24 14:23 Blood Pressure 101/57 L 02/16/24 14:23 Pulse Oximetry 98 02/16/24 14:23 Temperature 37.1 C 02/16/24 14:23 Pulse 98 H 02/16/24 14:23 Respiratory Rate 16 02/16/24 14:23 Blood Pressure 101/57 L 02/16/24 14:23 Pulse Oximetry 98 02/16/24 14:23 Pain Level 8 02/16/24 14:23 Lab/Test Results Lab/Test Results: 02/16/24 14:48 Blood Blood Culture - Pending 02/16/24 14:48 Blood Blood Culture - Pending Medical Decision Making Quality:SDOH Health Related Social Needs: No Data to Display PFSH All Active Problems (Updated 02/16/24 @ 18:36 by Lilliana Acosta MD) 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 of cerebrovascular accident (Acute) Diabetic infection of right foot (Acute) Diabetic ulcer of right heel (Acute) Atherosclerosis of arteries (Acute) Thrombocytosis (Acute) Acute cerebrovascular accident (CVA) (Acute) Removal of staple (Acute) Former smoker (Acute) Type 2 diabetes mellitus (Acute) Vitamin D deficiency (Acute) Spinal stenosis (Acute) Sleep apnea (Acute) Peripheral neuropathy (Acute) Hyperlipidemia (Acute) Hearing loss (Acute) Current non-smoker but past smoking history unknown (Acute) Amputation of leg (Acute) L - 2006 Amputation of right foot (Acute) History of left below knee amputation (Acute) Diabetic polyneuropathy (Acute) Primary osteoarthritis of left shoulder (Chronic) Tinnitus, bilateral (Acute 05/16/17) Sensorineural hearing loss (SNHL) of both ears (Chronic 05/16/17) Medical History Infrarenal abdominal aortic aneurysm (AAA) without rupture Biceps tendon rupture Hx of fall Change in bowel function Leg weakness Lightheadedness Rotator cuff tear arthropathy of right shoulder Rotator cuff tear arthropathy of left shoulder Impacted cerumen, right ear Infected sebaceous cyst of skin Weight gain Sebaceous cyst (~08/19/19) referral states Right anterior chest Rupture of right distal biceps tendon (~09/2018) Osteomyelitis Foot drop, right Diabetic foot ulcer Ulcer of foot Shoulder pain, left Calf pain Bronchitis Physical deconditioning Insomnia Skin irritation Abdominal pain DNR (do not resuscitate) Myalgia Balance problem B12 deficiency Dysphagia Partial tear of left rotator cuff Most recent injection: 06/30/19 S/P RTC repair by Dr. Jarrett September 2017 MRI from 02/2018 showed full-thickness re-tear supraspinatus and infraspinatus Cellulitis of right toe right 4th toe Impingement syndrome of left shoulder SURGERY 10/09/17 Other synovitis and tenosynovitis, left shoulder SURGERY 10/09/17 Complete rotator cuff tear of left shoulder SURGERY 10/09/17 Discharge planning issues DVT prophylaxis Amputated toe of right foot Acute appendicitis with localized peritonitis Hernia of anterior abdominal wall Surgical History S/P cholecystectomy open History of transmetatarsal amputation of right foot History of colonoscopy H/O esophagogastroduodenoscopy (~06/09/18) History of spinal surgery Status post rotator cuff surgery Rotator Cuff Repair Repair of inguinal hernia Appendectomy (06/11/16) Amputation left below knee amputation Family History Mother CAD (coronary artery disease) Maternal Grandmother Diabetes Social History Smoking/Tobacco Use Status: Former Tobacco Use Quit Date: 02/18/17 Smoking risk assessment performed?: Yes Alcohol Intake: former Drug use: Never Substance use type: does not use Details: Pt states quit smoking 09/2017 Housing: house Current gender identity: male Do you feel safe at home: Yes Do you feel safe in your relationship?: Yes Additional Social history: Grew up outside of [place] in town in [place]. 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
[2024-02-16 15:30] LABS: Abs Immature Grans 0.16 10^3/uL (0.0-0.06); Absolute Lymphocyte Count 1.77 10^3/uL (1.2-3.4); Basophils % 1.1 %; HCT 37.9 % (40.0-50.0); HGB 12.3 g/dL (13.5-17.5); Immature Grans % 0.8 %; Lymphocytes % 9.1 %; MCH 27.8 pg (27.0-33.0); MCHC 32.5 % (32.0-36.0); MCV 86 fL (80-95); MPV 10.2 fL (8.0-11.0); Monocytes % 4.4 %; Neutrophils % 81.6 %; RBC 4.42 10^6/uL (4.36-5.78); RDW 14.4 % (11.8-14.1); RDW-SD 44.9 fL; WBC 19.47 10^3/uL (4.4-10.8)
[2024-02-16] MEDS: Nystatin CREAM 15 GM TUBE TP (15:42)
[2024-02-16 15:45] LABS: ALT 23 U/L (16-63); AST 17 U/L (15-37); Albumin 2.8 g/dL (3.4-5.0); Alkaline Phosphatase 88 U/L (46-116); Anion Gap 9.4 mmol/L (3-11); BUN 19 mg/dL (7-18); Bilirubin, Total 0.43 mg/dL (0.2-1.0); CO2 26.6 mmol/L (21.0-32.0); CREATININE 1.1 mg/dL (0.70-1.30); Calcium 8.9 mg/dL (8.5-10.1); Chloride 102 mmol/L (98-107); Estimated GFR 70.88 (mL/min/1.73m2); Glucose 294 mg/dL (74-106); Magnesium 1.8 mg/dL (1.8-2.4); Potassium 4.6 mmol/L (3.5-5.1); Sodium 138 mmol/L (136-145); Total Protein 7.4 g/dL (6.4-8.2)
[2024-02-16 15:54] LABS: ESR 72 mm/hr (0-20)
[2024-02-16 16:23] LABS: Absolute Basophil Count 0.21 10^3/uL (0.0-0.2); Absolute Eosinophil Count 0.58 10^3/uL (0.0-0.7); Absolute Monocyte Count 0.86 10^3/uL (0.1-0.8); Absolute Neutrophil Count 15.89 10^3/uL (1.2-6.7)
[2024-02-16 16:27] LABS: Platelet Count 1070 10^3/uL (130-400)
[2024-02-16 16:53] LABS: C-Reactive Protein 6.47 mg/dL (<or=0.5)
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
[2024-02-16] MEDS: CEFEPIME 2 GM in Normal Saline 100 ML IVPB (17:21)
[2024-02-16 17:28] VITALS: BP 110/71; PULSE 88; RESP 16; O2SAT 96
--- NOTE | 2024-02-16 17:36 | W.PC.ACHO ---
Registration Status: Primary Language: Preferred Language: ED Information & Data Chief Complaint Cellulitis 02/16/24 15:09 Triage Note pt has MRSA infection RLE, 02/16/24 14:23 is on abx, MRSA still spreading, wounds worsening. infection is spreading and pain is increased. Has a stroke 6 weeks ago, was in rehab, was able to go home and since at home pt wounds have worsened. pt has hx of LLE amputation. pt is axox4. pt states since being in rehabs his blood sugars were out of control, had great control at home but they were not giving him the same insulin as what he was doing at home. Medical / Surgical History (Last Reviewed 12/18/23 @ 19:53 by Shoshana Chang APRN) Infrarenal abdominal aortic aneurysm (AAA) without rupture Biceps tendon rupture Hx of fall Change in bowel function Leg weakness Lightheadedness Rotator cuff tear arthropathy of right shoulder Rotator cuff tear arthropathy of left shoulder Impacted cerumen, right ear Infected sebaceous cyst of skin Weight gain Sebaceous cyst (~08/19/19) Rupture of right distal biceps tendon (~09/2018) Osteomyelitis Foot drop, right Diabetic foot ulcer Ulcer of foot Shoulder pain, left Calf pain Bronchitis Physical deconditioning Insomnia Skin irritation Abdominal pain DNR (do not resuscitate) Myalgia Balance problem B12 deficiency Dysphagia Partial tear of left rotator cuff Cellulitis of right toe Impingement syndrome of left shoulder Other synovitis and tenosynovitis, left shoulder Complete rotator cuff tear of left shoulder Discharge planning issues DVT prophylaxis Amputated toe of right foot Acute appendicitis with localized peritonitis Hernia of anterior abdominal wall (Last Reviewed 12/18/23 @ 19:53 by Shohsana Chang APRN) S/P cholecystectomy History of transmetatarsal amputation of right foot History of colonoscopy H/O esophagogastroduodenoscopy (~06/09/18) History of spinal surgery Status post rotator cuff surgery Rotator Cuff Repair Repair of inguinal hernia Appendectomy (06/11/16) Amputation Most Recent Vital Signs Temperature 37.1 C 02/16/24 14:23 Pulse 88 02/16/24 17:28 Respiratory Rate 16 02/16/24 17:28 Blood Pressure 110/71 02/16/24 17:28 Pulse Oximetry 96 02/16/24 17:28 Oxygen Delivery Method Room Air 12/29/24 17:28 Oxygen Flow Rate 0 02/16/24 17:28 Pain Level 0 02/16/24 17:28 Allergies levofloxacin Allergy (Severe, Verified 02/16/24 14:33) critical Levaquin: SWEATS, CHILLS, ARM PAIN onion Allergy (Severe, Verified 02/16/24 14:33) raw onion Penicillins Allergy (Severe, Verified 02/16/24 14:33) Anaphylaxsis pt. reports anaphylaxis Sulfa (Sulfonamide Antibiotics) Allergy (Severe, Verified 02/16/24 14:33) Hives sulfamethoxazole (From Bactrim) Allergy (Severe, Verified 02/16/24 14:33) Hives trimethoprim (From Bactrim) Allergy (Severe, Verified 02/16/24 14:33) Hives simvastatin Adverse Reaction (Severe, Verified 02/16/24 14:33) faints IV IV Catheter Type [] Peripheral IV IV Catheter Gauge [] 20 Diet Orders Category Date Time Status Diabetes Consistent CHO/Heart Healthy [DIET] Nutrition 02/16/24 Dinner Active Diagnostics 02/16/24 Range/Units 15:05 WBC 19.47 H (4.4-10.8) 10^3/uL RBC 4.42 (4.36-5.78) 10^6/uL Hgb 12.3 L (13.5-17.5) g/dL Hct 37.9 L (40.0-50.0) % MCV 86 (80-95) fL MCH 27.8 (27.0-33.0) pg MCHC 32.5 (32.0-36.0) % RDW 14.4 H (11.8-14.1) % Plt Count 1070 H* (130-400) 10^3/uL MPV 10.2 (8.0-11.0) fL Immature Gran % 0.8 % Neutrophils % 81.6 % Lymphocytes % 9.1 % Monocytes % 4.4 % Eosinophils % 3.0 % Basophils % 1.1 % Nucleated RBC % 0.0 (0.0-0.3) % Absolute Neutrophils 15.89 H (1.2-6.7) 10^3/uL Absolute Lymphocytes 1.77 (1.2-3.4) 10^3/uL Absolute Monocytes 0.86 H (0.1-0.8) 10^3/uL Absolute Eosinophils 0.58 (0.0-0.7) 10^3/uL Absolute Basophils 0.21 H (0.0-0.2) 10^3/uL ESR 72 H (0-20) mm/hr Sodium 138 (136-145) mmol/L Potassium 4.6 (3.5-5.1) mmol/L Chloride 102 (98-107) mmol/L Carbon Dioxide 26.6 (21.0-32.0) mmol/L Anion Gap 9.4 (3-11) mmol/L BUN 19 H (7-18) mg/dL Creatinine 1.1 (0.70-1.30) mg/dL Est GFR (CKD-EPI 2020) 70.88 (mL/min/1.73m2) Glucose 294 H (74-106) mg/dL Calcium 8.9 (8.5-10.1) mg/dL Magnesium 1.8 (1.8-2.4) mg/dL Total Bilirubin 0.43 (0.2-1.0) mg/dL AST 17 (15-37) U/L ALT 23 (16-63) U/L Alkaline Phosphatase 88 (46-116) U/L C-Reactive Protein 6.47 H (<or=0.5) mg/dL Total Protein 7.4 (6.4-8.2) g/dL Albumin 2.8 L (3.4-5.0) g/dL 02/16/24 15:05 Blood Culture - Pending Blood 02/16/24 14:48 Blood Culture - Pending Blood Intake and Output - 24 Hour Total 02/16/24 14:13 thru 02/16/24 14:23 Weight 117.934 kg Falls Risk Assessment History of Falls No History 02/16/24 15:36 Contributing Factors Impairments 02/16/24 15:36 Ambulatory Aids Uses ambulatory device + 02/16/24 15:36 Gait Evaluation W/any additional score 02/16/24 15:36 Cognition No cognitive impairment 02/16/24 15:36 Fall Total Score 53 02/16/24 15:36 Level of Risk High Risk 02/16/24 15:36 v v v v v v v v v Sending and/or Receiving Nurses: Please use comment section below to note any information pertinent to the patient hand-off not included above. Information / Comments: Report received from: issa HARRELL given to Bernice HARRELL at [phone]. Pt going to room 206
[2024-02-16 17:43] VITALS: BP 110/71; PULSE 88; TEMP 36.5; O2SAT 96
[2024-02-16 17:54] VITALS: BP 120/68; PULSE 78; RESP 16; TEMP 36.8; O2SAT 98
[2024-02-16 18:08] VITALS: BP 120/68; PULSE 90; RESP 18; TEMP 36.8; O2SAT 98
[2024-02-16] MEDS: VANCOMYCIN 2,000 MG in Normal Saline 500 ML 333.3333 MG IVPB (18:41)
[2024-02-16] MEDS: Insulin Aspart 300 UNITS/3 ML PEN SC (20:47)
[2024-02-16] MEDS: Normal Saline Flush 10 ML SYR IVP (20:49)
[2024-02-16] MEDS: Gabapentin 300 MG CAP 1500 MG PO (20:49)
[2024-02-16] MEDS: Rosuvastatin 20 MG TAB PO (20:50)
[2024-02-16 21:53] VITALS: BP 113/74; PULSE 96; RESP 16; TEMP 37; O2SAT 97
[2024-02-16] MEDS: Melatonin 3 MG TAB 10 MG PO (21:57)
[2024-02-16] MEDS: metFORMIN 850 MG TAB 500 MG PO (21:57)
[2024-02-16] MEDS: Miconazole 2% Topical Powder 85 GM BTL (22:19)
--- NOTE | 2024-02-17 | DI.MRI_ITS ---
Exam(s) MR LOWER EXTREMITY RT WO/W EXAM: MR LOWER EXTREMITY RT WO/W CLINICAL HISTORY: osteomyelitis. TECHNIQUE: Multiplanar multisequence MRI was performed. CONTRAST MATERIAL: IV Contrast: 20 mL of Dotarem contrast administered. COMPARISON: None. FINDINGS: BONES: Prior amputations of the 1st through 5th toes. Postsurgical deformity of the 2nd metatarsal h ead. Focal erosion at the inferior 3rd metatarsal head with contrast enhancement consistent with ost eomyelitis. There remainder of the metatarsal heads appear intact. No evidence of fracture. JOINTS: Normal alignment. No joint effusions. MUSCULOTENDINOUS STRUCTURES: Visualized portion of the planar fascia is unremarkable. The visualized tendons are unremarkable. SOFT TISSUES: Marked dorsal edema. No drainable canal collection. Area of ulceration noted distally at the stump, at the level of the 3rd metatarsal head. IMPRESSION: Findings consistent with osteomyelitis at the 3rd metatarsal head. DATA REPOSITORY:
[2024-02-17] MEDS: CEFEPIME 2 GM in Normal Saline 100 ML IVPB ×3 (02:31→18:25)
[2024-02-17 02:33] VITALS: BP 110/51; PULSE 84; RESP 18; TEMP 37.6; O2SAT 95
--- NOTE | 2024-02-17 07:00 | DI.US_ITS ---
Exam(s) US LOWER EXTREMITY VENOUS RT EXAM: US LOWER EXTREMITY VENOUS RT CLINICAL HISTORY: foot infection, entire leg is swollen TECHNIQUE: Grayscale, color, and doppler imaging of the deep venous system of the right lower extrem ity was performed. COMPARISON: US US CAROTID from 12/19/2023 FINDINGS: There is no evidence of intraluminal thrombus and there is normal compression and augmentation demons trated within the common femoral vein, femoral vein, and popliteal vein. In the ipsilateral calf the interrogated veins also exhibit normal compression/ augmentation properti es. There is some edema noted in the calf The ipsilateral saphenofemoral junction is patent. IMPRESSION: 1. No evidence of DVT in the right lower extremity. DATA REPOSITORY:
[2024-02-17 07:03] VITALS: BP 121/56; PULSE 81; RESP 18; TEMP 37.5; O2SAT 97
[2024-02-17] MEDS: Enoxaparin 40 MG/0.4 ML SYR SC (07:38)
[2024-02-17] MEDS: Insulin Aspart 300 UNITS/3 ML PEN 6 UNITS SC ×3 (07:39→16:43)
[2024-02-17] MEDS: Insulin Aspart 300 UNITS/3 ML PEN SC ×3 (07:40→16:43)
[2024-02-17] MEDS: Normal Saline Flush 10 ML SYR IVP ×5 (07:41→23:21)
[2024-02-17] MEDS: Gabapentin 300 MG CAP 900 MG PO (07:42)
[2024-02-17] MEDS: Ezetimibe 10 MG TAB PO (07:43)
[2024-02-17] MEDS: Pantoprazole 40 MG TABCR PO (07:43)
[2024-02-17] MEDS: Aspirin 81 MG CHEW PO (07:43)
[2024-02-17] MEDS: Clopidogrel 75 MG TAB PO (07:43)
[2024-02-17] MEDS: Cholecalciferol (Vitamin D3) 1,000 UNIT TAB 2000 UNITS PO (07:43)
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
--- NOTE | 2024-02-17 09:12 | IN_ITS ---
PT Notes Visit Reasons: Diabetic foot wound, Osteomyelitis Physical Therapy Inpatient Initial Evaluation Date: 02/17/2024 Referring Doctor: Erich Marie MD PT Orders: PT CONSULT: Eval for Assistive Device Precautions: Fall. Standard. Activity as tolerated. Residual L-sided hemiparesis. 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 L transtibial prosthesis and R spiral AFO in place when OOB. Patient Profile/Admitting Diagnosis: Suhail is a 73-year-old male with past medical history significant for L- sided hemipareasis from his CVA back in November of 2023, L transtibial amputation with L TT prosthesis and R spiral AFO for R foot drop, and R 1-5th TMT amputation admitted for management of diabetic foot infection of R foot, type II DM, R-sded hemiparesis, and depression. Patient received acute CVA rehab in [place], [place] for 20 days since discharge from this hospital on and was then sent for continued subacute rehab in a SNF for another 20 days before finally going home last Saturday. He presented to the ED on 02/16/2024 due to worsening ulcer of his R foot. PMHX: All Active Problems Thrombocytosis (Acute) Acute cerebrovascular accident (CVA) (Acute) Removal of staple (Acute) Former smoker (Acute) Type 2 diabetes mellitus (Acute) Vitamin D deficiency (Acute) Spinal stenosis (Acute) Sleep apnea (Acute) Peripheral neuropathy (Acute) Hyperlipidemia (Acute) Hearing loss (Acute) Current non-smoker but past smoking history unknown (Acute) Amputation of leg (Acute) L - 2005 Amputation of right foot (Acute) History of left below knee amputation (Acute) Diabetic polyneuropathy (Acute) Primary osteoarthritis of left shoulder (Chronic) Tinnitus, bilateral (Acute 05/16/17) Sensorineural hearing loss (SNHL) of both ears (Chronic 05/16/17) Medical History Infrarenal abdominal aortic aneurysm (AAA) without rupture Biceps tendon rupture Hx of fall Change in bowel function Leg weakness Lightheadedness Rotator cuff tear arthropathy of right shoulder Rotator cuff tear arthropathy of left shoulder Impacted cerumen, right ear Infected sebaceous cyst of skin Weight gain Sebaceous cyst (~07/01/20) referral states Right anterior chest Rupture of right distal biceps tendon (~09/2018) Osteomyelitis Foot drop, right Diabetic foot ulcer Ulcer of foot Shoulder pain, left Calf pain Bronchitis Physical deconditioning Insomnia Skin irritation Abdominal pain DNR (do not resuscitate) Myalgia Balance problem B12 deficiency Dysphagia Partial tear of left rotator cuff Most recent injection: 06/30/19 S/P RTC repair by Dr. Jarrett September 2017 MRI from 02/2018 showed full-thickness re-tear supraspinatus and infraspinatus Cellulitis of right toe right 4th toeImpingement syndrome of left shoulder SURGERY 10/09/17 Other synovitis and tenosynovitis, left shoulder SURGERY 10/09/17 Complete rotator cuff tear of left shoulder SURGERY 10/09/17 Discharge planning issues DVT prophylaxis Amputated toe of right foot Acute appendicitis with localized peritonitis Hernia of anterior abdominal wall Surgical History S/P cholecystectomy open History of transmetatarsal amputation of right foot History of colonoscopy H/O esophagogastroduodenoscopy (~06/09/18) History of spinal surgery Status post rotator cuff surgery Rotator Cuff Repair Repair of inguinal hernia Appendectomy (06/11/16) Amputation left below knee amputation Social History/Home Situation: Lives with in a private home with 2 steps to enter with rails. He has a flight of steps to the bedroom of the house. Equipment Owned/DME: [facility] Subjective: Patient just got transferred back to bed from bedside commode. LNAs indicated difficult transfer, needing 2 people and use of STEDY lift for safety. Patient unable to put weight on the R residual foot due to worsening ulcer on the sole of R lateral forefoot. Agreeable to trying out another transfer onto chair before lunch time. Proud about how much strength he has gained in his L UE with his rehab at the [facility] in [place], [place]. Was getting HH PT twice a week. Objective: General Observation: Patient just got transferrred from bedside commode back to bed by LNAs Cleo. Mental Status: Alert and oriented as to person, place, time, and purpose. Able to pay attention, focus, and respond appropriately. Speech intelligible. Pain: None reported Vital Signs: Closely monitored by nursing staff ROM: Right Upper Extremity: Shoulder Flexion WFL. Shoulder abduction WFL. Elbow flexion WFL. Wrist flexion WFL. Functional opening and closing of hand WFL. Left Upper Extremity: Shoulder Flexion allows up to about 300 degrees only. Shoulder abduction allows up to about 20 degrees only. Elbow flexion WFL. Wrist flexion about 10 degrees. Functional opening and closing of hand impaired. Right Lower Extremity: Hip flexion WFL. Hip abduction WFL. Knee flexion 10 degrees to 110 degrees. Knee extension -10 degrees ankle dorsiflexion ) degrees, patient with R foot drop. Ankle plantarflexion 10 degrees. Left Lower Extremity: Hip flexion lacks the last 25% of AROM. Hip abduction lack s the last 25% of AROM. Knee flexion 30 degrees to 80 degrees. Ankle dorsiflexion not applicable, patient with L TT prosthesis. Ankle plantarflexion not applicable, patient with L TT prosthesis Strength: Right Upper Extremity: Shoulder flexors 4/5. Shoulder abductors 4/5. Elbow flexors 5/5. Elbow extensors 5/5. 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 Left Upper Extremity: Shoulder flexors 2-/5. Shoulder abductors 2-/5. Elbow flexors 3-/5. Elbow extensors 3-/5. Flexographic Printing Machinist weak but functional. Right Lower Extremity: Hip flexors 4/5. Hip abductors 4/5. Knee flexors 3-/5. Knee extensors 3-/5. Ankle dorsiflexors 0/5. Ankle plantarflexors 3/5. Left Lower Extremity: Hip flexors 2-/5. Hip abductors 2-/5. Knee flexors 3-/5. Knee extensors 3-/5. Ankle dorsiflexors NT. Ankle plantarflexors NT. Bed Mobility/Transfers: Minimal cueing provided for use of B hands as needed for support, movement sequence, AD management, and posture to reduce fall risk and minimize pain report Sit to stand moderate assist of 2 using both hands for support using STEDY lift Stand to sit moderate assist of 2 using both hands for suppormoderate assist of 2 using both hands for support using STEDY liftminimal assist using FWW Gait: Unable to test Balance: Static Sitting: Fair Dynamic Sitting: Fair Static Standing: Unable to test Dynamic Standing: Unable to test Special Tests: Mobility Limitations Standardized Measure [facility] 6 clicks Basic Mobility Inpatient Short Form: Raw Score: 6 CMS Score: 100% deficit% 4-Stage Balance test: Deferred Pronator drift: Positive on L Tongue Deviation: Deviated to R Rhomberg test: Deferred due to safety reasons Informed Consent/Education: Patient was instructed in purpose of PT consult and plan of care. Agreeable to proceed with established PT POC to achieve personal goals. ASSESSMENT: Suhail presents with functional mobility decline resulting from admitting diagnoses above as well as functional impairments listed below. Co-morbidities include R-sided hemiparesis, 1-5 TMT amputation on the R, L TT amputation on the L, high BMI, pre-existing balance impairment, diabetes, and repeated falls. Patient requires acute stoke rehab facility placement in order to optimize motor and neurologic recovery while increasing ability to return home safely. Patient presents with clinical signs and symptoms consistent with current/admitting diagnoses that have resulted to mobility limitations, gait instability, generalized weakness, and overall ADL decline as demonstrated by the following impairment level findings: 1. Decreased strength to B UE/LE major muscle groups, L side weaker than R 2. Impaired sitting/standing balance and tolerance 3. Impaired activity tolerance 4. Limitation of joint range of motion in L UE/LE joints 5. Shortness of breath 6. High BMI 7. Pre-existing Foot drop on R ankle 8. Transtibial amputation on L 9. 1-5 TMT amputation 10. 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 Decline in bed mobility skills 2. Decline in transfer skills 3. Unable to ambulate without assistive device and physical assistance, on NWB precaution on the R foot due to worsening ulcer 4. Increased completion time for mobility ADL performance 5. Increased risk for falls 6. Difficulty with managing steps alone safely Patient is assessed as a [id number] moderate complexity based on the following: History: [id number] with past medical history as indicated above Examination: Demonstrable impairment in strength, balance, and mobility level with underlying impairments and functional limitations as exhibited above as well as deficit score of 47% utilizing the [facility] Mobility Inpatient Short Form Presentation: Evolving Decision Makin moderate complexity Goals: Goals X1 week 1. Supine-Sit independent 2. Sit-Supine independent 3. Sit-Stand minimal assist with FWW 4. Stand-Sit minimal assist with FWW 5. Bed-Chair minimal assist with FWW 6. Chair-Bed minimal assist with FWW 7. Minimal assist with FWW gait on level surface with use of FWW for at least 150 feet without report of pain nor dyspnea 8. Minimal assist with FWW stair negotiation while holding onto 1 rails for at least 12 steps without report of pain nor dyspnea 9. Good static and dynamic standing balance/tolerance Plan of Care/Treatment Plan: Patient will highly benefit from skilled physical therapy services including functional mobility training, bed mobility/transfer training, gait and balance training, therapeutic exercises, therapeutic activity, caregiver/staff/family education and training 1x/day, 7 days/week x 1 week. Initiate Physical Therapy intervention for strengthening, bed mobility, transfers, gait, stairs, balance training, use of assistive device. DISCHARGE RECOMMENDATIONS: [] Home with no services [] [] Home with services [specify] [] Home with outpatient PT [] [X] SNF for continued rehabilitation. Patient will benefit from fdc facility placement for continued skilled physical therapy services in order to progress mobility level, strength, and balance in preparation for a safe discharge to home. [] Air Crew Supervisor Care [] [] SNF versus LTC based on ability to participate and progress [] TREATMENT CODE/TIME: 66955 x 20 minutes for 1 unit, 76346 x 15 minutes for 1 unit (9:12-9:23 and 9:37-10:01). Thank you for the opportunity to participate in the care of this patient. Arely Velazco PT, DPT, CLT [facility] [place], [place]
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
--- NOTE | 2024-02-17 09:28 | PDOC.CMIN ---
Date of service: 02/17/24 Time of Service: 09:33 Care Management Initial Assmt Initial Assessment Reason for Hospitalization: right foot infection with osteomyelitis Functional Status/Living Situation Patient Presentation: Eloy was sitting up in bed when CM met with him. He was pleasant in interaction and engaged easily with CM, known to him from previous admissions. Eloy was transferred to [facility] for acute following his stroke in December. From there he was sent to a local SNF where he had a less than ideal experience. He informed CM that he believes his current infection is due to poor care at that facility. Eloy had an MRI today which identified osteomyelitis. This may require intermediate project manager IV antibiotics. CM explained the various options for the antibiotics and Eloy stated he would be fine with home infusions or SB-1 here. A wound consult has been placed and will hopefully be completed today. Unfortunately, Podiatry and Orthopedics are not available for several days. Eloy shared that since he was discharged from rehab last week he has been managing at home alone. His niece stayed with him for the first few days but he has done fine on his own since then. He has a wheelchair and walker and can transfer into and out of his chair and his bed. His is currently in [facility] caring for her ill mother. She is not expected to return until mid-February. Eloy has been receiving home health services 2x/wk.)for nursing, PT (2x/wk) and OT (2x/wk). Town of Residence: [place] Resides with: Spouse (Sol) Significant Other/Family: [facility] Instrumental Activities of Daily Living (ADLs): Independent Medications Medication Management: No Issues/Barriers identified Advance Directives Advance Directives: Do you have an Advance Directive: Y 10/29/17 09:32 AD On File at [facility]: N 10/23/23 14:54 Date Asked 02/16/24 02/16/24 14:23 AD Date Reviewed COLST On File at [facility] COLST Date Scanned Code Status Resuscitation Status DNR/DNI Portal Pt does not currently have a portal and education provided: Yes Insurance Coverage/Financial Issues Insurance: Medicare Medicaid Financial Assist 100 Care Team Visit Care Team Role Provider Type Lilli Packer MD Primary Care Provider [facility] STAFF PHYSICIAN Maria Ines Robles, DIXONM Other Providers DPM [facility] STAFF PHYSICIAN Giovanni Chun, GUN BARREL FINISHER Other Providers CERT REG NURSE MRB ENGINEER InPatient Arron Hansen Other Providers OTHER George Mena DPM Other Providers DPM [facility] STAFF PHYSICIAN Lilliana Acosta MD Emergency Provider [facility] STAFF PHYSICIAN Erich Marie Admit Provider [facility] STAFF PHYSICIAN Attending Provider Discharge Potential Discharge Needs: PCP F/U Appt and Surgical F/U Appt Anticipated Barriers to Discharge: Medical Status Patient/Family Education Needs: Review discharge instructions, discuss Ask Me Three Transportation: Private vehicle Plan: Anticipate Eloy will be discharged home with a resumption of home health services when medically cleared. It is possible he may need assisted IV antibiotics and he is willing to do either home infusions or SB-1. He will follow up with his surgeon and PCP and plan of care and transport with family. CM will follow and continue to assess for discharge needs. PFSH All Active Problems (Updated 02/17/24 @ 12:20 by Bhaskar Galeas MD) Edema (Acute) Advanced care planning/counseling discussion (Acute) Depression (Chronic) 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 of cerebrovascular accident (Acute) Diabetic infection of right foot (Acute) Diabetic ulcer of right heel (Acute) Atherosclerosis of arteries (Acute) Thrombocytosis (Acute) Acute cerebrovascular accident (CVA) (Acute) Removal of staple (Acute) Former smoker (Acute) Type 2 diabetes mellitus (Acute) Vitamin D deficiency (Acute) Spinal stenosis (Acute) Sleep apnea (Acute) Peripheral neuropathy (Acute) Hyperlipidemia (Acute) Hearing loss (Acute) Current non-smoker but past smoking history unknown (Acute) Amputation of leg (Acute) L - 2006 Amputation of right foot (Acute) History of left below knee amputation (Acute) Diabetic polyneuropathy (Acute) Primary osteoarthritis of left shoulder (Chronic) Tinnitus, bilateral (Acute 05/16/17) Sensorineural hearing loss (SNHL) of both ears (Chronic 05/16/17) Medical History Infrarenal abdominal aortic aneurysm (AAA) without rupture Biceps tendon rupture Hx of fall Change in bowel function Leg weakness Lightheadedness Rotator cuff tear arthropathy of right shoulder Rotator cuff tear arthropathy of left shoulder Impacted cerumen, right ear Infected sebaceous cyst of skin Weight gain Sebaceous cyst (~08/19/19) referral states Right anterior chest Rupture of right distal biceps tendon (~09/2018) Osteomyelitis Foot drop, right Diabetic foot ulcer Ulcer of foot Shoulder pain, left Calf pain Bronchitis Physical deconditioning Insomnia Skin irritation Abdominal pain DNR (do not resuscitate) Myalgia Balance problem B12 deficiency Dysphagia Partial tear of left rotator cuff Most recent injection: 06/30/19 S/P RTC repair by Dr. Jarrett September 2017 MRI from 02/2018 showed full-thickness re-tear supraspinatus and infraspinatus Cellulitis of right toe right 4th toe Impingement syndrome of left shoulder SURGERY 10/09/17 Other synovitis and tenosynovitis, left shoulder SURGERY 10/09/17 Complete rotator cuff tear of left shoulder SURGERY 10/09/17 Discharge planning issues DVT prophylaxis Amputated toe of right foot Acute appendicitis with localized peritonitis Hernia of anterior abdominal wall Surgical History S/P cholecystectomy open History of transmetatarsal amputation of right foot History of colonoscopy H/O esophagogastroduodenoscopy (~06/09/18) History of spinal surgery Status post rotator cuff surgery Rotator Cuff Repair Repair of inguinal hernia Appendectomy (06/11/16) Amputation left below knee amputation Family History Mother CAD (coronary artery disease) Maternal Grandmother Diabetes Social History Smoking/Tobacco Use Status: Former Tobacco Use Quit Date: 02/18/17 Smoking risk assessment performed?: Yes Alcohol Intake: former Drug use: Never Substance use type: does not use Details: Pt states quit smoking 09/2017 Housing: house Current gender identity: male Do you feel safe at home: Yes Do you feel safe in your relationship?: Yes Additional Social history: Grew up outside of [place] in town in [place]. 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 SDOH(Care Management) Screening Will the Patient Participate in the Screening?: Yes Do you worry about having a steady place to live?: no Problems where you live: no known problems In the past 12 months, have you had to go without electric, gas, oil or water in your home?: no Have you or anyone in your house had to go without enough food to eat?: no Has lack of transportation kept you from medical appointments or from doing things needed for daily living?: no Has anyone in your support network made you feel unsafe for any reason?: no
[2024-02-17] MEDS: Lisinopril 2.5 MG TAB PO (10:38)
[2024-02-17] MEDS: VANCOMYCIN/WATER (PEG) 1 GM/200 ML BAG IVPB ×2 (11:13→21:59)
[2024-02-17 11:41] VITALS: BP 105/56; PULSE 77; RESP 18; TEMP 36.2; O2SAT 94
--- NOTE | 2024-02-17 12:07 | W.PM.PROGNOT ---
Date of Service Date of service: 02/17/24 Time of Service: 12:08 Assessment and Plan Assessment and plan (1) Diabetic infection of right foot: Status: Acute Assessment and plan: Worsening despite outpatient antibiotic therapy with increasing WBC count. History of MRSA (in skin wound on chest). At risk for pseudomonas given DM wound on foot. I agree with cefepime and vancomycin pending cultures Hopefully we can get a deep tissue culture as well with surgical evaluation. He has seen podiatry in the past, hasn't established with surgery for his, will consult podiatry Clinically, with visible bone per ED and elevated ESR there is a good chance he has osteomyelitis, regardless of XR findings. He may need prolonged antibiotic therapy, possible amputation. Will await podiatry evaluation as I'm not sure he needs MRI to make diagnosis. There is a lot of swelling in the entire right leg, will get vascular u/s in am, though my pretest probability is not high enough to start full dose anticoagulation overnight. 02.17.24 Per available schedule, neither Ortho or podiatry are available this week. Actually [place] is available today only and I will reach out to him to see if he is interested. Possibly, can get involved (2) Type 2 diabetes mellitus: Status: Acute Assessment and plan: A1c 6.1% in November, which represents overly aggressive control given his age and comorbities. Will continue outpatient medication. After low A1c he has been cutting back on insulin, I lowered the doses here. He was getting high sugars 10 days ago at PCP office in [place], so we may need to titrate further. Hold GLP-1 as he may need surgery. (3) 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 of cerebrovascular accident: Status: Acute Assessment and plan: Continue ASA and high intensity statin. He is done with 21 days of DAPT, but according to PCP he is still on DAPT related to his ongoing thrombocytosis pending hematology evaluation. Will continue clopidogrel as well for now. Hemeparesis and wounds, amputations affecting his ADLs. He may need additional rehabilitation or addition help at home. He does not want to go back to [facility]. Looks like he has had some minor swallowing issues since his stroke, adjust diet to small bite size. (4) Depression: Status: Chronic Assessment and plan: Vs adjustment, being treated with fluoxetine. Unfortantely this medication can affect his clopidogrel. Will plan to change to sertraline, but wait until discharge as otherwise will get too much overlap in effect given fluoxetine's long half life. (5) DVT prophylaxis: Assessment and plan: High risk, enoxaparin (6) Edema: Status: Acute Assessment and plan: Exact etiology is unknown but I do have some concerns for CHF. Will check BNP and consider echo is one hasn't been done in the past. My guess is that he had an echo recently 2/2 CVA work up. Will check albumin in light of echo findings echo 12/19/23 Conclusion Technically limited study Left ventricular wall thickness chamber size and systolic function appear within the range of normal Normal right ventricular function and size Both atria are normal in size Aortic valve is trileaflet and mildly sclerotic Mild mitral annular calcification Study is technically inadequate to determine if any intracardiac shunting was present (7) Thrombocytosis: Status: Acute Assessment and plan: Pt continues to have elevations in his platelets. Pt does have an appt with Automation And Controls Supervisor which is pending Subjective Subjective Interval history since last seen: Pt seen and examined in his room this am. Pt c/o RLE edema but says pain has good control. POC d/w pt as well as bedside nurse during MDR. Evidently we do not have Orthopedics or Podiatry working this week. Exam Narrative Exam Narrative: GEN: Alert and oriented x 4, pleasant and cooperative, gives linear history. No acute distress at rest. HEENT: Head atraumatic. Conjunctiva clear, no icterus. PEERL, EOMI. no rhinorrhea. MMM, OP benign. Neck is supple with no masses or lymphadenopathy, trachea midline LUNGS: CTAB with normal effort CV: RRR with no murmurs, gallops, or rubs. No elevation JVP ABD: Normal bowel sounds, soft, nontender, nondistended. No masses. RUQ scar well healed. EXT: no cyanosis, clubbing. Warm. 2+ pitting edema right leg to thigh MSK: No joint redness or swelling. Left BKA. Right toes amputated. NEURO: CN 2-12 grossly intact. Normal speech and coordination. Left arm/leg weak, normal strength right. minimal sensation to light touch right foot to below knee. No tremor SKIN: Skin at stump dark pink, also in popliteal fossa, but no open wounds. Right foot with 6-7cm unstagable left heal ulceration with dark eschar over heal. Over MCPs 4x6cm T shapped pressre wound with foul smelling drainage, deep but not clearly stagable. [place] surrounding wounds, mildly tender with pressure (even though diminished sensation). PSYCH: normal mood and affect, normal thought process DP/PT not palpable but has to viewed in light of RLE swelling Objective Last Vital Signs Temp 36.2 C L 02/17/24 11:41 Pulse 77 02/17/24 11:41 Resp 18 02/17/24 11:41 BP 105/56 L 02/17/24 11:41 Pulse Ox 94 02/17/24 11:41 Laboratory Results - last 24 hr 02/16/24 15:05 WBC 19.47 H RBC 4.42 Hgb 12.3 L Hct 37.9 L MCV 86 MCH 27.8 MCHC 32.5 RDW 14.4 H Plt Count 1070 H* MPV 10.2 Immature Gran % 0.8 Neutrophils % 81.6 Lymphocytes % 9.1 Monocytes % 4.4 Eosinophils % 3.0 Basophils % 1.1 Nucleated RBC % 0.0 Absolute Neutrophils 15.89 H Absolute Lymphocytes 1.77 Absolute Monocytes 0.86 H Absolute Eosinophils 0.58 Absolute Basophils 0.21 H ESR 72 H Sodium 138 Potassium 4.6 Chloride 102 Carbon Dioxide 26.6 Anion Gap 9.4 BUN 19 H Creatinine 1.1 Est GFR (CKD-EPI 2020) 70.88 Glucose 294 H Calcium 8.9 Magnesium 1.8 Total Bilirubin 0.43 AST 17 ALT 23 Alkaline Phosphatase 88 C-Reactive Protein 6.47 H Total Protein 7.4 Albumin 2.8 L Time Spent with Patient Time Spent with Patient: 35-49 minutes Time was spent: preparing to see the patient(eg.review tests), obtaining and/or reviewing separately otained hiistory, ordering medications,tests, procedures, referring, communicating with other health managed care coordinator, indepentently interpreting results, counseling the patient and care coordination
[2024-02-17] MEDS: Gadoterate meglumine 20 ML SYRINGE IVP (14:40)
[2024-02-17] MEDS: Nystatin POWDER 60 GM JAR TP ×2 (15:23→20:24)
[2024-02-17] MEDS: oxyCODONE 15 MG TAB PO ×2 (15:32→21:58)
[2024-02-17] MEDS: metFORMIN 500 MG TAB PO (16:43)
[2024-02-17 19:34] VITALS: BP 132/56; PULSE 65; RESP 18; TEMP 37.2; O2SAT 97
[2024-02-17] MEDS: Gabapentin 300 MG CAP 1500 MG PO (20:22)
[2024-02-17] MEDS: Acetaminophen 325 MG TAB 650 MG PO (20:23)
[2024-02-17] MEDS: Rosuvastatin 20 MG TAB PO (20:23)
[2024-02-17] MEDS: Nystatin OINT 15 GM TUBE TP (20:24)
[2024-02-17 23:15] VITALS: BP 125/53; PULSE 70; RESP 18; TEMP 36.2; O2SAT 96
[2024-02-18] MEDS: CEFEPIME 2 GM in Normal Saline 100 ML IVPB ×3 (02:44→17:55)
[2024-02-18] MEDS: Normal Saline Flush 10 ML SYR IVP ×3 (02:45→20:02)
[2024-02-18 02:58] VITALS: BP 127/61; PULSE 68; RESP 18; TEMP 36.5; O2SAT 98
[2024-02-18] MEDS: oxyCODONE 15 MG TAB PO ×3 (03:30→20:01)
[2024-02-18 07:09] LABS: Abs Immature Grans 0.06 10^3/uL (0.0-0.06); Absolute Basophil Count 0.14 10^3/uL (0.0-0.2); Absolute Lymphocyte Count 1.84 10^3/uL (1.2-3.4); Basophils % 1.1 %; Eosinophils % 4.6 %; HCT 32.8 % (40.0-50.0); HGB 10.4 g/dL (13.5-17.5); Immature Grans % 0.5 %; Lymphocytes % 14.2 %; MCH 27.9 pg (27.0-33.0); MCHC 31.7 % (32.0-36.0); MCV 88 fL (80-95); MPV 10.2 fL (8.0-11.0); Monocytes % 5.4 %; Neutrophils % 74.2 %; RBC 3.73 10^6/uL (4.36-5.78); RDW 14.6 % (11.8-14.1); RDW-SD 47.2 fL; WBC 12.95 10^3/uL (4.4-10.8)
[2024-02-18 07:33] LABS: Absolute Neutrophil Count 9.61 10^3/uL (1.2-6.7)
[2024-02-18 07:35] LABS: ALT 16 U/L (16-63); AST 15 U/L (15-37); Albumin 2.1 g/dL (3.4-5.0); Alkaline Phosphatase 62 U/L (46-116); Anion Gap 6.5 mmol/L (3-11); BUN 17 mg/dL (7-18); Bilirubin, Total 0.32 mg/dL (0.2-1.0); CO2 26.5 mmol/L (21.0-32.0); Calcium 8.7 mg/dL (8.5-10.1); Chloride 103 mmol/L (98-107); Estimated GFR 79.47 (mL/min/1.73m2); Glucose 178 mg/dL (74-106); NT-proBNP 647 pg/mL (<300); Potassium 4.4 mmol/L (3.5-5.1); Sodium 136 mmol/L (136-145); Total Protein 6.2 g/dL (6.4-8.2)
[2024-02-18 07:36] LABS: Platelet Count 780 10^3/uL (130-400)
[2024-02-18] MEDS: Gabapentin 300 MG CAP 900 MG PO (07:54)
[2024-02-18] MEDS: Enoxaparin 40 MG/0.4 ML SYR SC (07:54)
[2024-02-18] MEDS: Lisinopril 2.5 MG TAB PO (07:55)
[2024-02-18] MEDS: Pantoprazole 40 MG TABCR PO (07:55)
[2024-02-18] MEDS: Ezetimibe 10 MG TAB PO (07:55)
[2024-02-18] MEDS: Clopidogrel 75 MG TAB PO (07:55)
[2024-02-18] MEDS: Aspirin 81 MG CHEW PO (07:55)
[2024-02-18] MEDS: Acetaminophen 325 MG TAB 650 MG PO ×2 (07:55→20:01)
[2024-02-18] MEDS: Cholecalciferol (Vitamin D3) 1,000 UNIT TAB 2000 UNITS PO (07:55)
[2024-02-18] MEDS: Insulin Aspart 300 UNITS/3 ML PEN SC ×3 (07:56→16:57)
[2024-02-18] MEDS: Insulin Aspart 300 UNITS/3 ML PEN 6 UNITS SC ×3 (07:58→16:57)
[2024-02-18 07:59] VITALS: BP 118/51; PULSE 63; RESP 14; TEMP 36.6; O2SAT 96
--- NOTE | 2024-02-18 07:59 | PTTR_ITS ---
PT Notes Visit Reasons: Diabetic foot wound, Osteomyelitis Physical Therapy Inpatient Treatment Note Date: 02/18/2024 Precautions: Fall. ON CONTACT PRECAUTIONS FOR MRSA. Residual L-sided hemiparesis. 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 L transtibial prosthesis and R spiral AFO (unable to at this time) in place when OOB. Post-op shoe on the R foot when OOB. Protected weight bearing on the R LE due to plantar sore. Subjective: Feels so weak. Agreeable to getting out of bed. [facility] to [facility] to [facility] due to unpleasant experience from previous admission. Complained of some soreness on the outer side of his midback area on the right. Objective: General Observation: Dressing on R foot. Nurse Bernice in room when PT came in. Mental Status: Alert and oriented as to person, place, time, and purpose. Able to pay attention, focus, and respond appropriately. Speech intelligible. Pain: None reported Vital Signs: Closely monitored by nursing staff Bed Mobility/Transfers: Minimal cueing provided for use of B hands as needed for support, movement sequence, AD management, and posture to reduce fall risk and minimize pain report Supine to sit moderate assist of 2 with HOB at 45 degrees Scoot forward to edge of bed moderate assist of 2 with R UE pushing down on bed Sit to stand moderate assist of 2 using both hands for support using STEDY lift Stand to sit moderate assist of 2 using both hands for support using STEDY lift Bed to bedside recliner moderate assist of 2 using both hands for support using STEDY lift Gait: Unable due to medical status Balance: Static Sitting: Fair Dynamic Sitting: Fair Static Standing: Poor Dynamic Standing: Unable ASSESSMENT: Suhail was able to tolerate static standing for about 1-2 minutes before needing to sit down onto bottom pads of lift due to fatigue. Unable to wear spiral AFO due to pplantar sore and swelling in R leg and foot. He was able to tolerate bed to bedside recliner transfer using the STEDY lift with assist of 2. Unable to ambulate at this time due to R-sided hemiparesis superimposed on R TT amputation compounded by worsening R lateral plantar forefoot ulcer. Patient requires assistance of 2 people for all transfers and will need placement in a senior care facility to work on increasing independence with transfers and ambulation. R midback paraspinals sore and may benefit from manual therapy. Plan of Care/Treatment Plan: Patient will highly benefit from skilled physical therapy services including functional mobility training, bed mobility/transfer training, gait and balance training, therapeutic exercises, therapeutic activity, caregiver/staff/family education and training 1x/day, 7 days/week x 1 week. Initiate Physical Therapy intervention for strengthening, bed mobility, transfers, gait, stairs, balance training, use of assistive device. DISCHARGE RECOMMENDATIONS: [] Home with no services [] [] Home with services [specify] [] Home with outpatient PT [] [X] SNF for continued rehabilitation. Patient will benefit from senior care facility placement for continued skilled physical therapy services in order to progress mobility level, strength, and balance in preparation for a safe discharge to home. [] Fretted Instrument Repairer Care [] [] SNF versus LTC based on ability to participate and progress [] TREATMENT CODE/TIME: 28518 x 41 minutes for 3 units (7:59-8:40).
--- NOTE | 2024-02-18 09:00 | CMPROGNOTE_ITS ---
Date of service: 02/18/24 Time of Service: 09:00 Care Management Progress Note Progress Note Text Progress Note Text: Eloy was sitting up in bed when CM met with him. He expressed concern about his medical bills, particularly due to his financial assistance at [facility], as it expires on 02/17 (today), and he has not renewed it for 2024 yet. CM contacted patient accounting on his behalf, who stated that he can fill out the paperwork for 2024 after he is discharged, and if he is approved (he stated there is no change to their financial situation), it will be retroactive back to 02/19/24, therefore he does not have to worry about it while here. CM provided support and validation, as he discussed the multiple stressors in his life currently. Per MD, both Podiatry and Ortho are not available until next week, and he discussed the option of transfer to [place], who declined transfer, as he has had a negative experience at [facility], and prefers to remain local, at [facility]. He is receiving IV antibiotics, and has a wound consult pending. CM will continue to follow. Discharge Potential Discharge Needs: PCP F/U Appt and Surgical F/U Appt Anticipated Barriers to Discharge: Medical Status and Treatment delay (Podiatry and Ortho not available this week; HERIBERTO consulted) Patient/Family Education Needs: Review discharge instructions, discuss Ask Me Three Transportation: Private vehicle Plan: Anticipate Eloy will be discharged home with a resumption of home health services when medically cleared. It is possible he may need ocean transportation intermediary IV antibiotics and he is willing to do either home infusions or SB-1. He will follow up with his surgeon and PCP and plan of care and transport with family. CM will follow and continue to assess for discharge needs. Social Determinants of Health Screening Social Determinants of Health last assessed: 02/18/24 Will the Patient Participate in the Screening?: Yes Do you worry about having a steady place to live?: no Problems where you live: no known problems In the past 12 months, have you had to go without electric, gas, oil or water in your home?: no Have you or anyone in your house had to go without enough food to eat?: no Has lack of transportation kept you from medical appointments or from doing things needed for daily living?: no Has anyone in your life made you feel unsafe or unsupported?: no How hard is it for you to pay for the very basics like food, housing, medical care, and heating? Would you say it is:: Somewhat hard (concerned about medical bills; has [facility] financial assistance) Do you want help finding or keeping work or a job?: I do not need or want help If for any reason you need help with day-to-day activities such as bathing, preparing meals, shopping, managing finances, etc., do you get the help you need?: I get all the help I need (feels well supported at home) How often do you feel lonely or isolated from those around you?: Sometimes Do you speak a language other than [place] at home?: No Does the patient want assistance with any of the above?: No Health Related Social Needs Health related social needs: housing instability, housed, with risk of homelessness (Z59.811), problems related to housing/economic circumstances (Z59.89) and feeling lonely/isolated (Z60.8)
[2024-02-18 11:06] VITALS: BP 96/60; PULSE 71; RESP 18; TEMP 36.6; O2SAT 95
[2024-02-18] MEDS: Nystatin POWDER 60 GM JAR TP ×3 (11:15→20:29)
[2024-02-18] MEDS: Nystatin OINT 15 GM TUBE TP ×2 (11:15→20:29)
[2024-02-18] MEDS: VANCOMYCIN/WATER (PEG) 1 GM/200 ML BAG IVPB (11:51)
--- NOTE | 2024-02-18 14:00 | PGE_ITS ---
Date of Service Date of service: 02/18/24 Time of Service: 14:00 Assessment and Plan Assessment and plan (1) Diabetic infection of right foot: Status: Acute Assessment and plan: Worsening despite outpatient antibiotic therapy with increasing WBC count. History of MRSA (in skin wound on chest). At risk for pseudomonas given DM wound on foot. I agree with cefepime and vancomycin pending cultures Hopefully we can get a deep tissue culture as well with surgical evaluation. He has seen podiatry in the past, hasn't established with surgery for his, will consult podiatry Clinically, with visible bone per ED and elevated ESR there is a good chance he has osteomyelitis, regardless of XR findings. He may need prolonged antibiotic therapy, possible amputation. Will await podiatry evaluation as I'm not sure he needs MRI to make diagnosis. There is a lot of swelling in the entire right leg, will get vascular u/s in am, though my pretest probability is not high enough to start full dose anticoagulation overnight. 02.17.24 Per available schedule, neither Ortho or podiatry are available this week. Actually Pro[facility]aska is available today only and I will reach out to him to see if he is interested. Possibly, GS can get involved 02.18.24 As mentioned above, Podiatry or Ortho are available this week and the pt does not want to be transferred. At this point, the plan is to continue with abx and get ortho or podiatry to see the pt as soon as available. Not ideal but I don't see a better option at this point (2) Type 2 diabetes mellitus: Status: Acute Assessment and plan: A1c 6.1% in November, which represents overly aggressive control given his age and comorbities. Will continue outpatient medication. After low A1c he has been cutting back on insulin, I lowered the doses here. He was getting high sugars 10 days ago at PCP office in 300[place], so we may need to titrate further. Hold GLP-1 as he may need surgery. 02.18.24 Pt is currently on RISS as well as asparate 6u tid. (3) 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 of cerebrovascular accident: Status: Acute Assessment and plan: Continue ASA and high intensity statin. He is done with 21 days of DAPT, but according to PCP he is still on DAPT related to his ongoing thrombocytosis pending hematology evaluation. Will continue clopidogrel as well for now. Hemeparesis and wounds, amputations affecting his ADLs. He may need additional rehabilitation or addition help at home. He does not want to go back to [facility]. Looks like he has had some minor swallowing issues since his stroke, adjust diet to small bite size. (4) Depression: Status: Chronic Assessment and plan: Vs adjustment, being treated with fluoxetine. Unfortantely this medication can affect his clopidogrel. Will plan to change to sertraline, but wait until discharge as otherwise will get too much overlap in effect given fluoxetine's long half life. (5) DVT prophylaxis: Assessment and plan: High risk, enoxaparin (6) Edema: Status: Acute Assessment and plan: Exact etiology is unknown but I do have some concerns for CHF. Will check BNP and consider echo is one hasn't been done in the past. My guess is that he had an echo recently 2/ CVA work up. Will check albumin in light of echo findings echo 12/19/23 Conclusion Technically limited study Left ventricular wall thickness chamber size and systolic function appear within the range of normal Normal right ventricular function and size Both atria are normal in size Aortic valve is trileaflet and mildly sclerotic Mild mitral annular calcification Study is technically inadequate to determine if any intracardiac shunting was p resent (7) Thrombocytosis: Status: Acute Assessment and plan: Pt continues to have elevations in his platelets. Pt does have an appt with Avionics Systems Technician which is pending Subjective Subjective Interval history since last seen: Pt seen and examined in his room this morning. Pt does c/o continued right foot pain. POC d/w pt and with bedside nurse during MDR. Pt was made aware that Podiatry and Ortho are both unavailable this week. Pt refused transfer to a higher level of care. Per report, Podiatry will not be available until Feb 24, 2024. Evidently there is no wound care nurses either. Exam Narrative Exam Narrative: GEN: Alert and oriented x 4, pleasant and cooperative, gives linear history. No acute distress at rest. HEENT: Head atraumatic. Conjunctiva clear, no icterus. PEERL, EOMI. no rhinorrhea. MMM, OP benign. Neck is supple with no masses or lymphadenopathy, trachea midline LUNGS: CTAB with normal effort CV: RRR with no murmurs, gallops, or rubs. No elevation JVP ABD: Normal bowel sounds, soft, nontender, nondistended. No masses. RUQ scar well healed. EXT: no cyanosis, clubbing. Warm. 2+ pitting edema right leg to thigh MSK: No joint redness or swelling. Left BKA. Right toes amputated. NEURO: CN 2-12 grossly intact. Normal speech and coordination. Left arm/leg weak, normal strength right. minimal sensation to light touch right foot to below knee. No tremor SKIN: right foot wound is currently bandaged. DP/PT not palpable but has to viewed in light of RLE swelling Objective Last Vital Signs Temp 36.6 C 02/18/24 11:06 Pulse 71 02/18/24 11:06 Resp 18 02/18/24 11:06 BP 96/60 L 02/18/24 11:06 Pulse Ox 95 02/18/24 11:06 Laboratory Results - last 24 hr 02/18/24 06:02 WBC 12.95 H RBC 3.73 L Hgb 10.4 L Hct 32.8 L MCV 88 MCH 27.9 MCHC 31.7 L RDW 14.6 H Plt Count 780 H* MPV 10.2 Immature Gran % 0.5 Neutrophils % 74.2 Lymphocytes % 14.2 Monocytes % 5.4 Eosinophils % 4.6 Basophils % 1.1 Nucleated RBC % 0.0 Absolute Neutrophils 9.61 H Absolute Lymphocytes 1.84 Absolute Monocytes 0.70 Absolute Eosinophils 0.60 Absolute Basophils 0.14 Sodium 136 Potassium 4.4 Chloride 103 Carbon Dioxide 26.5 Anion Gap 6.5 BUN 17 Creatinine 1.0 Est GFR (CKD-EPI 2020) 79.47 Glucose 178 H Calcium 8.7 Total Bilirubin 0.32 AST 15 ALT 16 Alkaline Phosphatase 62 NT-Pro-B Natriuret Pep 647 H Total Protein 6.2 L Albumin 2.1 L Time Spent with Patient Time Spent with Patient: 25-34 minutes Time was spent: preparing to see the patient(eg.review tests), obtaining and/or reviewing separately otained hiistory, ordering medications,tests, procedures, referring, communicating with other health care coordination manager, indepentently interpreting results, counseling the patient and care coordination
[2024-02-18 15:04] LABS: Vancomycin, Random 20.9 ug/mL
[2024-02-18] MEDS: metFORMIN 500 MG TAB PO (16:57)
[2024-02-18 17:05] VITALS: BP 119/67; PULSE 72; RESP 14; TEMP 37.4; O2SAT 96
[2024-02-18] MEDS: Rosuvastatin 20 MG TAB PO (20:01)
[2024-02-18] MEDS: Gabapentin 300 MG CAP 1500 MG PO (20:01)
[2024-02-18] MEDS: Insulin Glargine 300 UNITS/3 ML PEN 48 UNITS SC (20:29)
[2024-02-18 20:47] VITALS: BP 115/55; PULSE 80; RESP 18; TEMP 36.5; O2SAT 95
[2024-02-18] MEDS: VANCOMYCIN/WATER (PEG) 1.25 GM/250 ML BAG IVPB (23:05)
[2024-02-19] MEDS: Normal Saline Flush 10 ML SYR IVP ×3 (02:29→21:07)
[2024-02-19] MEDS: CEFEPIME 2 GM in Normal Saline 100 ML IVPB ×3 (02:29→17:19)
[2024-02-19 02:46] VITALS: BP 118/53; PULSE 72; RESP 19; TEMP 36.5; O2SAT 95
[2024-02-19] MEDS: Docusate Sodium 100 MG CAP PO ×2 (06:21→21:03)
[2024-02-19 06:47] LABS: Abs Immature Grans 0.09 10^3/uL (0.0-0.06); Absolute Monocyte Count 0.71 10^3/uL (0.1-0.8); Basophils % 0.7 %; Eosinophils % 4.5 %; HCT 36.2 % (40.0-50.0); HGB 11.6 g/dL (13.5-17.5); Immature Grans % 0.7 %; Lymphocytes % 14.5 %; MCH 27.8 pg (27.0-33.0); MCV 87 fL (80-95); MPV 10.2 fL (8.0-11.0); Monocytes % 5.3 %; Neutrophils % 74.3 %; RBC 4.18 10^6/uL (4.36-5.78); RDW 14.5 % (11.8-14.1); RDW-SD 45.6 fL; WBC 13.42 10^3/uL (4.4-10.8)
[2024-02-19 07:05] LABS: Absolute Basophil Count 0.09 10^3/uL (0.0-0.2); Absolute Lymphocyte Count 1.95 10^3/uL (1.2-3.4); Absolute Neutrophil Count 9.97 10^3/uL (1.2-6.7)
[2024-02-19 07:17] LABS: Platelet Count 867 10^3/uL (130-400)
[2024-02-19 07:23] LABS: ALT 15 U/L (16-63); AST 15 U/L (15-37); Albumin 2.3 g/dL (3.4-5.0); Alkaline Phosphatase 69 U/L (46-116); Anion Gap 9.7 mmol/L (3-11); BUN 19 mg/dL (7-18); Bilirubin, Total 0.35 mg/dL (0.2-1.0); CO2 26.3 mmol/L (21.0-32.0); CREATININE 1.1 mg/dL (0.70-1.30); Chloride 103 mmol/L (98-107); Estimated GFR 70.88 (mL/min/1.73m2); Glucose 161 mg/dL (74-106); Potassium 4.4 mmol/L (3.5-5.1); Sodium 139 mmol/L (136-145); Total Protein 6.9 g/dL (6.4-8.2)
[2024-02-19 07:36] VITALS: BP 126/55; PULSE 48; RESP 16; TEMP 36.6; O2SAT 97
[2024-02-19] MEDS: Enoxaparin 40 MG/0.4 ML SYR SC (09:00)
[2024-02-19] MEDS: Nystatin OINT 15 GM TUBE TP ×2 (09:00→21:21)
[2024-02-19] MEDS: Gabapentin 300 MG CAP 900 MG PO (09:01)
[2024-02-19] MEDS: Cholecalciferol (Vitamin D3) 1,000 UNIT TAB 2000 UNITS PO (09:01)
[2024-02-19] MEDS: Nystatin POWDER 60 GM JAR TP ×3 (09:01→21:22)
[2024-02-19] MEDS: Aspirin 81 MG CHEW PO (09:02)
[2024-02-19] MEDS: Ezetimibe 10 MG TAB PO (09:02)
[2024-02-19] MEDS: Pantoprazole 40 MG TABCR PO (09:02)
[2024-02-19] MEDS: Lisinopril 2.5 MG TAB PO (09:02)
[2024-02-19] MEDS: Clopidogrel 75 MG TAB PO (09:02)
[2024-02-19] MEDS: Insulin Aspart 300 UNITS/3 ML PEN SC ×3 (09:05→17:18)
[2024-02-19] MEDS: Insulin Aspart 300 UNITS/3 ML PEN 6 UNITS SC ×3 (09:05→17:19)
[2024-02-19 11:03] VITALS: BP 112/58; PULSE 78; RESP 16; TEMP 36.2; O2SAT 98
[2024-02-19] MEDS: VANCOMYCIN/WATER (PEG) 1.25 GM/250 ML BAG IVPB ×2 (11:52→21:07)
--- NOTE | 2024-02-19 11:56 | PT.INTREAT ---
Date of service: 02/19/24 Time of Service: 11:25 PT Notes Visit Reasons: Diabetic foot wound, Osteomyelitis Inpatient Physical Therapy Treatment Note [facility] Date: 02/19/2024 PT Notes Visit Reasons: Diabetic foot wound, Osteomyelitis Physical Therapy Inpatient Treatment Note SUBJECTIVE: Stated he is good with getting out of bed. Feels his arms and legs are getting weak being in bed so much. Precautions: Fall. ON CONTACT PRECAUTIONS FOR MRSA. Residual L-sided hemiparesis. 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 L transtibial prosthesis and R spiral AFO (unable to at this time) in place when OOB. Post-op shoe on the R foot when OOB. Protected weight bearing on the R LE due to plantar sore. OBJECTIVE: ? PAIN: Pain in right foot if accidentally places too much weight on it when transferring, Sensitivity with catheter when doing right knee to chest, but this was better with modification. Nurse Bernice was checking Catheter once up in chair due to leaking. Therapeutic Activities (00533u8 - 25 minutes): Direct one-on-one instruction in dynamic activities to improve functional performance. ? Worked on increasing B UE strength and promotion of increased circulation to B LE with direct instruction on safe exercise performance while in supine: Unilateral diagonal chop exercises against red TB x 5 R Unilateral diagonal chop exercises against red TB x 5 L (active assistive) Bilateral UE chop exercise with assiatnce provided to ensure B hands are clasped x 10 R Deep breathing exercises x 5 Manually resisted horizontal adduction x 10 L/R R [id number] exercise x 10 L knee-tochest exercise x 10 Deep breathing exercises x 5 GLuteal sets 5 sh x 10 Quadriceps sets 5 sh x 10 ? Provided skilled instruction in proper exercise performance Provided skilled manual cues to facilitate proper muscle recruitment and/or form Bed Mobility/Transfers: Minimal cueing provided for use of B hands as needed for support, movement sequence, AD management, and posture to reduce fall risk and minimize pain report Supine to sit moderate assist of 2 with HOB at 45 degrees Scoot forward to edge of bed moderate assist of 2 with R UE pushing down on bed Sit to stand moderate assist of 2 using both hands for support using STEDY lift Stand to sit moderate assist of 2 using both hands for support using STEDY lift Bed to bedside recliner moderate assist of 2 using both hands for support using STEDY lift ASSESSMENT:? Tolerated exercises well with good effort displayed. Continues to require mod assist of 2 with supine to sit and sit to stand with stedy lift transfers. PLAN: Continue to work on strengthening and transfer training preparation for discharge from hospital when medically ready. TREATMENT CODE/TIME: [id number], 11:25 to 11:50 (25') DISCHARGE RECOMMENDATION: Supervising PT is recommending SNF for continued rehabilitation. Patient will benefit from assisted facility placement for continued skilled physical therapy services in order to progress mobility level, strength, and balance in preparation for a safe discharge to home.
--- NOTE | 2024-02-19 12:51 | W.PM.PROGNOT ---
Date of Service Date of service: 02/19/24 Time of Service: 12:52 Assessment and Plan Assessment and plan (1) Diabetic infection of right foot: Status: Acute Assessment and plan: Worsening despite outpatient antibiotic therapy with increasing WBC count. History of MRSA (in skin wound on chest). At risk for pseudomonas given DM wound on foot. I agree with cefepime and vancomycin pending cultures Hopefully we can get a deep tissue culture as well with surgical evaluation. He has seen podiatry in the past, hasn't established with surgery for his, will consult podiatry Clinically, with visible bone per ED and elevated ESR there is a good chance he has osteomyelitis, regardless of XR findings. He may need prolonged antibiotic therapy, possible amputation. Will await podiatry evaluation as I'm not sure he needs MRI to make diagnosis. There is a lot of swelling in the entire right leg, will get vascular u/s in am, though my pretest probability is not high enough to start full dose anticoagulation overnight. 02.17.24 Per available schedule, neither Ortho or podiatry are available this week. Actually [facility] is available today only and I will reach out to him to see if he is interested. Possibly, GS can get involved 02.18.24 As mentioned above, Podiatry or Ortho are available this week and the pt does not want to be transferred. At this point, the plan is to continue with abx and get ortho or podiatry to see the pt as soon as available. Not ideal but I don't see a better option at this point (2) Type 2 diabetes mellitus: Status: Acute Assessment and plan: A1c 6.1% in November, which represents overly aggressive control given his age and comorbities. Will continue outpatient medication. After low A1c he has been cutting back on insulin, I lowered the doses here. He was getting high sugars 10 days ago at PCP office in 300s, so we may need to titrate further. Hold GLP-1 as he may need surgery. 02.18.24 Pt is currently on RISS as well as asparate 6u tid. (3) 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 of cerebrovascular accident: Status: Acute Assessment and plan: Continue ASA and high intensity statin. He is done with 21 days of DAPT, but according to PCP he is still on DAPT related to his ongoing thrombocytosis pending hematology evaluation. Will continue clopidogrel as well for now. Hemeparesis and wounds, amputations affecting his ADLs. He may need additional rehabilitation or addition help at home. He does not want to go back to [facility]. Looks like he has had some minor swallowing issues since his stroke, adjust diet to small bite size. (4) Depression: Status: Chronic Assessment and plan: Vs adjustment, being treated with fluoxetine. Unfortantely this medication can affect his clopidogrel. Will plan to change to sertraline, but wait until discharge as otherwise will get too much overlap in effect given fluoxetine's long half life. (5) DVT prophylaxis: Assessment and plan: High risk, enoxaparin (6) Edema: Status: Acute Assessment and plan: Exact etiology is unknown but I do have some concerns for CHF. Will check BNP and consider echo is one hasn't been done in the past. My guess is that he had an echo recently / CVA work up. Will check albumin in light of echo findings echo 12/19/23 Conclusion Technically limited study Left ventricular wall thickness chamber size and systolic function appear within the range of normal Normal right ventricular function and size Both atria are normal in size Aortic valve is trileaflet and mildly sclerotic Mild mitral annular calcification Study is technically inadequate to determine if any intracardiac shunting was present (7) Thrombocytosis: Status: Acute Assessment and plan: Pt continues to have elevations in his platelets. Pt does have an appt with Proj Engineer which is pending (8) Infrarenal abdominal aortic aneurysm (AAA) without rupture: Assessment and plan: abd/pelvic CT 10/20/23 ABDOMINAL AORTA: The abdominal aorta is atherosclerotic and there is a fusiform infrarenal abdominal aortic aneurysm below the level the inferior mesenteric artery takeoff point, this exhibiting maximum diameter of 3.2 cm. The common iliac arteries are calcified and minimally prominent. Will need surveillance at the discretion of the PCP Subjective Subjective Interval history since last seen: Pt seen and examined in his room. POC d/w pt as well as with bedside nurse during MDR. No new complaints Exam Narrative Exam Narrative: HEENT: Normocephalic atraumatic mucous memories moist oropharynx is clear extract motions are intact Neck: No lymphadenopathy no JVD no thyromegaly Respiratory: No accessory muscle use noted speaking in complete sentences Lower extremities: AKA on left side. Right foot is bandaged Neuro: Cranial nerves II through XII intact as tested General: Alert and oriented, can give a linear history. Objective Last Vital Signs Temp 36.2 C L 02/19/24 11:03 Pulse 78 02/19/24 11:03 Resp 16 02/19/24 11:03 BP 112/58 L 02/19/24 11:03 Pulse Ox 98 02/19/24 11:03 Laboratory Results - last 24 hr 02/18/24 02/19/24 14:00 06:04 WBC 13.42 H RBC 4.18 L Hgb 11.6 L Hct 36.2 L MCV 87 MCH 27.8 MCHC 32.0 RDW 14.5 H Plt Count 867 H* MPV 10.2 Immature Gran % 0.7 Neutrophils % 74.3 Lymphocytes % 14.5 Monocytes % 5.3 Eosinophils % 4.5 Basophils % 0.7 Nucleated RBC % 0.0 Absolute Neutrophils 9.97 H Absolute Lymphocytes 1.95 Absolute Monocytes 0.71 Absolute Eosinophils 0.60 Absolute Basophils 0.09 Sodium 139 Potassium 4.4 Chloride 103 Carbon Dioxide 26.3 Anion Gap 9.7 BUN 19 H Creatinine 1.1 Est GFR (CKD-EPI 2020) 70.88 Glucose 161 H Calcium 9.0 Total Bilirubin 0.35 AST 15 ALT 15 L Alkaline Phosphatase 69 Total Protein 6.9 Albumin 2.3 L Random Vancomycin 20.9 Time Spent with Patient Time Spent with Patient: <25 minutes Time was spent: preparing to see the patient(eg.review tests), obtaining and/or reviewing separately otained hiistory, ordering medications,tests, procedures, referring, communicating with other health primary health care nurse, indepentently interpreting results, counseling the patient and care coordination
[2024-02-19 14:47] VITALS: BP 100/72; PULSE 72; RESP 16; TEMP 36.5; O2SAT 96
[2024-02-19] MEDS: metFORMIN 500 MG TAB PO (17:19)
[2024-02-19] MEDS: Rosuvastatin 20 MG TAB PO (21:03)
[2024-02-19] MEDS: Gabapentin 300 MG CAP 1500 MG PO (21:04)
[2024-02-19] MEDS: Melatonin 3 MG TAB 9 MG PO (21:06)
[2024-02-19] MEDS: Insulin Glargine 300 UNITS/3 ML PEN 48 UNITS SC (21:20)
[2024-02-19 22:46] VITALS: BP 108/78; PULSE 77; RESP 18; TEMP 37.1; O2SAT 95
[2024-02-20] MEDS: CEFEPIME 2 GM in Normal Saline 100 ML IVPB ×3 (02:53→17:06)
[2024-02-20 03:02] VITALS: BP 118/52; PULSE 63; RESP 20; TEMP 36.6; O2SAT 94
[2024-02-20 07:23] VITALS: BP 100/55; PULSE 67; RESP 17; TEMP 36.7; O2SAT 94
--- NOTE | 2024-02-20 07:58 | PT.INTREAT ---
PT Notes Visit Reasons: Diabetic foot wound, Osteomyelitis Physical Therapy Inpatient Treatment Note Date: 02/20/2024 Precautions: Fall. ON CONTACT PRECAUTIONS FOR MRSA. Residual L-sided hemiparesis. 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 L transtibial prosthesis and R spiral AFO (unable to at this time) in place when OOB. Post-op shoe on the R foot when OOB. Protected weight bearing on the R LE due to plantar sore. Subjective: Agreeable to getting out of bed. Complained of soreness in R foot with minimal weight bearing during today's standing activity. Objective: General Observation: Dressing on R foot. Nurse Karen in room when PT came in. Mental Status: Alert and oriented as to person, place, time, and purpose. Able to pay attention, focus, and respond appropriately. Speech intelligible. Pain: Soreness reported on R planta area with minimal weight bearing Vital Signs: Closely monitored by nursing staff Bed Mobility/Transfers: Minimal cueing provided for use of B hands as needed for support, movement sequence, AD management, and posture to reduce fall risk and minimize pain report Supine to sit moderate assist of 2 with HOB at 45 degrees Scoot forward to edge of bed minimal assist with R UE pulling on R belt tied at FOB Sit to stand minimal assist of 2 using both hands for support using STEDY lift Stand to sit minimal assist of 2 using both hands for support using STEDY lift Bed to bedside recliner minimal assist of 2 using both hands for support using STEDY lift Gait: Unable due to medical status Balance: Static Sitting: Fair Dynamic Sitting: Fair Static Standing: Poor Dynamic Standing: Unable THERA EX: Worked on increasing B UE strength and promotion of increased circulation to B LE with direct instruction/guidance on safe exercise performance while in supine: Unilateral diagonal chop exercises against red TB x 5 R Unilateral diagonal chop exercises against red TB x 5 L (active assistive) Bilateral UE chop exercise with assiatnce provided to ensure B hands are clasped x 10 R Deep breathing exercises x 5 Bilateral UE chop exercise with assistnce provided to ensure B hands are clasped x 10 L R [id number] exercise x 10 L knee-tochest exercise x 10 Deep breathing exercises x 5 Gluteal sets 5 sh x 10 Quadriceps sets 5 sh x 10 Gentle passive stretches to R ankle plantaarflexors with use of padding to cushion plantar sore Sit<>stand from bedside recliner and edge of bed x 7 reps with about 30 seconds static standing while holding onto STEDY ASSESSMENT: Suhail was able to tolerate static standing for about 30 seconds x 7 before needing to sit down onto bottom pads of lift due to fatigue. Unable to wear spiral AFO due to plantar sore and swelling in R leg and foot. He was able to tolerate bed to bedside recliner transfer using the STEDY lift with assist of 2. Unable to ambulate at this time due to R-sided hemiparesis superimposed on R TT amputation compounded by worsening R lateral plantar forefoot ulcer. Patient requires assistance of 2 people for all transfers and will need placement in a [place] [facility] facility to work on increasing independence with transfers and ambulation. R midback paraspinals sore and may benefit from manual therapy. Plan of Care/Treatment Plan: Patient will highly benefit from skilled physical therapy services including functional mobility training, bed mobility/transfer training, gait and balance training, therapeutic exercises, therapeutic activity, caregiver/staff/family education and training 1x/day, 7 days/week x 1 week. Initiate Physical Therapy intervention for strengthening, bed mobility, transfers, gait, stairs, balance training, use of assistive device. DISCHARGE RECOMMENDATIONS: [] Home with no services [] [] Home with services [specify] [] Home with outpatient PT [] [X] SNF for continued rehabilitation. Patient will benefit from [place] [facility] [place] placement for continued skilled physical therapy services in order to progress mobility level, strength, and balance in preparation for a safe discharge to home. [] Service Delivery Supervisor Care [] [] SNF versus LTC based on ability to participate and progress [] TREATMENT CODE/TIME: Session1--05558 x 15 minutes for 1 unit. 16265 x 26 minutes for 2 units (7:58-8:40). Session 2--84289 x 46 minutes for 3 units (11:10-11:56).
[2024-02-20] MEDS: Clopidogrel 75 MG TAB PO (08:22)
[2024-02-20] MEDS: Pantoprazole 40 MG TABCR PO (08:23)
[2024-02-20] MEDS: Aspirin 81 MG CHEW PO (08:23)
[2024-02-20] MEDS: Lisinopril 2.5 MG TAB PO (08:23)
[2024-02-20] MEDS: Gabapentin 300 MG CAP 900 MG PO (08:23)
[2024-02-20] MEDS: Cholecalciferol (Vitamin D3) 1,000 UNIT TAB 2000 UNITS PO (08:23)
[2024-02-20] MEDS: Docusate Sodium 100 MG CAP PO ×2 (08:23→19:48)
[2024-02-20] MEDS: Ezetimibe 10 MG TAB PO (08:23)
[2024-02-20] MEDS: Normal Saline Flush 10 ML SYR IVP ×3 (08:24→19:51)
[2024-02-20] MEDS: Nystatin OINT 15 GM TUBE TP (08:24)
[2024-02-20] MEDS: Nystatin POWDER 60 GM JAR TP ×2 (08:24→19:50)
[2024-02-20] MEDS: Enoxaparin 40 MG/0.4 ML SYR SC (08:24)
[2024-02-20] MEDS: Insulin Aspart 300 UNITS/3 ML PEN 6 UNITS SC ×3 (08:25→17:07)
[2024-02-20] MEDS: Insulin Aspart 300 UNITS/3 ML PEN SC ×3 (08:26→17:07)
--- NOTE | 2024-02-20 08:50 | CMPROGNOTE_ITS ---
Date of service: 02/20/24 Time of Service: 08:50 Care Management Progress Note Progress Note Text Progress Note Text: Eloy was sitting up in a chair eating lunch when CM met with him. He was pleasant in manner and engaged well with CM. Eloy expressed disappointment that neither Orthopedics or Podiatry are available until Saturday. He had been offered transfer [place] [facility] [place] another hospital for treatment but declined. He stated he had a bad experience at [facility] and just prefers to be treated locally. In discussion with CM today Eloy indicated he might be agreeable to transfer and this was communicated to the provider. The provider contacted [facility] and spoke to an orthopedic surgeon. he reviewed the information and stated that Eloy would be fine to remain at [facility] on IV antibiotics until Saturday when the specialists will be available. His foot needs debridement but it is urgent, rather then emergent. Discharge Potential Discharge Needs: Surgical F/U Appt Anticipated Barriers to Discharge: Medical Status (may need prolonged course of IV antibiotics) Patient/Family Education Needs: Review discharge instructions, discuss Ask Me Three Transportation: Private vehicle Plan: Anticipate Eloy will be discharged home with a resumption of home health services when medically cleared. It is possible he may need intermediate teacher IV antibiotics and he is willing to do either home infusions or SB-1. He will follow up with his surgeon and PCP and plan of care and transport with family. CM will follow and continue to assess for discharge needs. Social Determinants of Health Screening Social Determinants of Health last assessed: 02/20/24 Will the Patient Participate in the Screening?: Yes Do you worry about having a steady place to live?: no Problems where you live: no known problems In the past 12 months, have you had to go without electric, gas, oil or water in your home?: no Have you or anyone in your house had to go without enough food to eat?: no Has lack of transportation kept you from medical appointments or from doing things needed for daily living?: no Has anyone in your life made you feel unsafe or unsupported?: no How hard is it for you to pay for the very basics like food, housing, medical care, and heating? Would you say it is:: Somewhat hard (concerned about medical bills; has [facility] financial assistance) Do you want help finding or keeping work or a job?: I do not need or want help If for any reason you need help with day-to-day activities such as bathing, preparing meals, shopping, managing finances, etc., do you get the help you need?: I get all the help I need (feels well supported at home) How often do you feel lonely or isolated from those around you?: Sometimes Do you speak a language other than Urdu at home?: No Does the patient want assistance with any of the above?: No Health Related Social Needs Health related social needs: problems related to housing/economic circumstances (Z59.89) and feeling lonely/isolated (Z60.8)
[2024-02-20] MEDS: oxyCODONE 15 MG TAB PO ×2 (08:53→19:49)
[2024-02-20] MEDS: VANCOMYCIN/WATER (PEG) 1.25 GM/250 ML BAG IVPB (10:41)
[2024-02-20 11:11] VITALS: BP 107/56; PULSE 73
[2024-02-20 11:15] VITALS: BP 107/56; PULSE 74; RESP 16; TEMP 36.4; O2SAT 97
--- NOTE | 2024-02-20 11:23 | W.NUTRFU ---
Date of service: 02/20/24 Time of Service: 11:23 Nutrition Note NOTE: follow up from last note: pt weight stable. Good po intake. Pt encouraged to drink 2 pks Jarad ONS daily for help with wound healing and are mixed and provided on breakfast and dinner meal trays. I modified texture on pt diet order today to normal consistencies. Was ordered for soft and bite size on admission - probable carry-over from prior admission, however pt expresses no difficulties with normal textures and on review of last speech therapy note, it appears that pt was assessed at low asp risk and the textures were more ordered out of pt preference at the time more than safety concerns. Fasting glucose 161 this morning and pre breakfast was 143 with fingersticks over the last 2 days all <200. Recommendation for nutrition support of wound healing: continue with Jarad BID and encourage intake. Recommend 220mg Zinc Sulfate daily and 500mg vitamin C BID. Will monitor intake and toleration of normal consistencies and ONS. Time Spent in Nutritional Counseling and Treatment: 5 minutes
--- NOTE | 2024-02-20 12:29 | W.PM.PROGNOT ---
Date of Service Date of service: 02/20/24 Time of Service: 12:30 Assessment and Plan Assessment and plan (1) Diabetic infection of right foot: Status: Acute Assessment and plan: Worsening despite outpatient antibiotic therapy with increasing WBC count. History of MRSA (in skin wound on chest). At risk for pseudomonas given DM wound on foot. I agree with cefepime and vancomycin pending cultures Hopefully we can get a deep tissue culture as well with surgical evaluation. He has seen podiatry in the past, hasn't established with surgery for his, will consult podiatry Clinically, with visible bone per ED and elevated ESR there is a good chance he has osteomyelitis, regardless of XR findings. He may need prolonged antibiotic therapy, possible amputation. Will await podiatry evaluation as I'm not sure he needs MRI to make diagnosis. There is a lot of swelling in the entire right leg, will get vascular u/s in am, though my pretest probability is not high enough to start full dose anticoagulation overnight. 02.17.24 Per available schedule, neither Ortho or podiatry are available this week. Actually [facility] is available today only and I will reach out to him to see if he is interested. Possibly, GS can get involved 02.18.24 As mentioned above, Podiatry or Ortho are available this week and the pt does not want to be transferred. At this point, the plan is to continue with abx and get ortho or podiatry to see the pt as soon as available. Not ideal but I don't see a better option at this point 1.2.25 Per charge nurse, Podiatry should be available tomorrow. Plan is to connect in am (2) Type 2 diabetes mellitus: Status: Acute Assessment and plan: A1c 6.1% in November, which represents overly aggressive control given his age and comorbities. Will continue outpatient medication. After low A1c he has been cutting back on insulin, I lowered the doses here. He was getting high sugars 10 days ago at PCP office [place], so we may need to titrate further. Hold GLP-1 as he may need surgery. 02.18.24 Pt is currently on RISS as well as asparate 6u tid. 1.225 Most recent BG readings are 143/146/221/172. Will c/w care (3) 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 of cerebrovascular accident: Status: Acute Assessment and plan: Continue ASA and high intensity statin. He is done with 21 days of DAPT, but according to PCP he is still on DAPT related to his ongoing thrombocytosis pending hematology evaluation. Will continue clopidogrel as well for now. Hemeparesis and wounds, amputations affecting his ADLs. He may need additional rehabilitation or addition help at home. He does not want to go back to [facility]. Looks like he has had some minor swallowing issues since his stroke, adjust diet to small bite size. (4) Depression: Status: Chronic Assessment and plan: Vs adjustment, being treated with fluoxetine. Unfortantely this medication can affect his clopidogrel. Will plan to change to sertraline, but wait until discharge as otherwise will get too much overlap in effect given fluoxetine's long half life. (5) DVT prophylaxis: Assessment and plan: High risk, enoxaparin (6) Edema: Status: Acute Assessment and plan: Exact etiology is unknown but I do have some concerns for CHF. Will check BNP and consider echo is one hasn't been done in the past. My guess is that he had an echo recently 2/ CVA work up. Will check albumin in light of echo findings echo 12/19/23 Conclusion Technically limited study Left ventricular wall thickness chamber size and systolic function appear within the range of normal Normal right ventricular function and size Both atria are normal in size Aortic valve is trileaflet and mildly sclerotic Mild mitral annular calcification Study is technically inadequate to determine if any intracardiac shunting was present (7) Thrombocytosis: Status: Acute Assessment and plan: Pt continues to have elevations in his platelets. 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 The common iliac arteries are calcified and minimally prominent. Will need surveillance at the discretion of the PCP Subjective Subjective Interval history since last seen: Pt seen and examined in his room this am. Pt does not have any new specific complaints. POC d/w Pt and bedside nurse during MDR Exam Narrative Exam Narrative: HEENT: Normocephalic atraumatic mucous memories moist oropharynx is clear extract motions are intact Neck: No lymphadenopathy no JVD no thyromegaly Respiratory: No accessory muscle use noted speaking in complete sentences Lower extremities: AKA on left side. Right foot with necrotic region right 3rd digit as well as calcaneus area. Circumferential appx 4cm each Neuro: Cranial nerves II through XII intact as tested General: Alert and oriented, can give a linear history. Objective Last Vital Signs Temp 36.4 C L 02/20/24 11:15 Pulse 74 02/20/24 11:15 Resp 16 02/20/24 11:15 BP 107/56 L 02/20/24 11:15 Pulse Ox 97 02/20/24 11:15 Time Spent with Patient Time Spent with Patient: 25-34 minutes Time was spent: preparing to see the patient(eg.review tests), obtaining and/or reviewing separately otained hiistory, ordering medications,tests, procedures, referring, communicating with other health customer care representative, indepentently interpreting results, counseling the patient and care coordination
[2024-02-20 15:37] VITALS: BP 124/54; PULSE 78; RESP 17; TEMP 36.9; O2SAT 93
[2024-02-20] MEDS: metFORMIN 500 MG TAB PO (17:06)
[2024-02-20 17:21] LABS: Vancomycin, Random 28.5 ug/mL
[2024-02-20 19:18] VITALS: BP 100/63; PULSE 75; RESP 16; TEMP 36.6; O2SAT 94
[2024-02-20] MEDS: Insulin Glargine 300 UNITS/3 ML PEN 48 UNITS SC (19:48)
[2024-02-20] MEDS: Rosuvastatin 20 MG TAB PO (19:48)
[2024-02-20] MEDS: Gabapentin 300 MG CAP 1500 MG PO (19:48)
--- NOTE | 2024-02-21 | DI.CT_ITS ---
Exam(s) CT ABD AORTA CTA W RUNOFF EXAM: CT ABD AORTA CTA W RUNOFF CLINICAL HISTORY: Evaluate vascular status of RLE. TECHNIQUE: Imaging Protocol: Axial computed tomography images with coronal and sagittal reformatted images were created and reviewed CONTRAST MATERIAL: Intravenous: Omnipaque 350 Contrast volume:150 mL Oral: None COMPARISON: CT RIGHT LOWER EXTREM W CONTRAST from 10/22/2016 FINDINGS: ABDOMEN: The abdominal aorta is atherosclerotic and there is an infrarenal abdominal aortic aneurysm as well a s arterial megaly of the common iliac arteries. Maximum diameter of the abdominal aortic aneurysm is 2.9 cm. There is no dissection. There is significant focal stenosis at the origin of the celiac ar babatunde; less so at the origin of the superior mesenteric artery. The inferior mesenteric artery also e xhibits stenosis at its origin but is not occluded. There is calcified plaque at the origin of both renal arteries. There is some atherosclerotic involvement of the aortic bifurcation but without a tight stenosis. Th ere is mild focal stenosis in the proximal left common iliac artery. Maximum diameter of the right c ommon iliac artery is 1.8 cm. Maximum diameter of the left common iliac artery is 1.5 cm. There not es tight stenosis of these vessels nor at their junction with the external iliac arteries. Both exte rnal iliac arteries exhibit normal diameters. Both common femoral arteries are calcified. On the left side there is a below-knee amputation. The left SFA is occluded at its origin. On the right side the proximal right SFA is patent.. There is moderate atherosclerotic involvement i n the proximal-mid right SFA and more prominent involvement of this vessel within Sky's canal wher e there is a significant focal stenosis but without occlusion. The right SFA is continuous with a pa tent but atherosclerotic right popliteal artery. There is no evidence of popliteal artery aneurysm. There is less than optimal contrast opacification of the infrapopliteal arteries of the right lower e xtremity. There is severe disease in the right anterior and posterior tibial arteries. The dominant runoff vessel in the right calf is the peroneal artery. More distal flow at and distal to the ankle level is most probably related to anterior and posterior collaterals from the distal aspect of the dominant right peroneal artery. Heart size is normal. There is no pericardial effusion. No pleural effusions. LIVER: There are no obvious focal hepatic lesions evident on this arterial phase study. GALLBLADDER/BILIARY: Gallbladder is contracted or surgically absent. There is a small round fluid co llection in the gallbladder fossa region measuring 3 by 2.5 cm which is possibly the gallbladder or f luid collection at this level in patient has had prior cholecystectomy. CBD is not dilated. PANCREAS: No evidence of pancreatic mass nor dilatation of the pancreatic duct. SPLEEN: The spleen size is upper normal. There is a lobulated hypodense lesion in the medial aspect of the spleen which measures 5 cm by 5 cm by 4 cm, difficult to assess on this type of study but stat istically most probably representing a cyst or hemangioma. ADRENALS: There are no significant adrenal masses. KIDNEYS: Kidneys exhibit normal size. No significant calculi nor cysts nor masses in the kidneys. N o calculi nor hydronephrosis. No solid renal masses. ABDOMINAL AORTA: See above LYMPH NODES: There is no retroperitoneal nor para-aortic adenopathy. No obvious mesenteric masses. ABDOMINAL WALL: No evidence of significant anterior abdominal wall hernia. GI: There is no evidence of bowel obstruction, free air, nor abscess.There are no ischemic appearing bowel loops. PELVIS: LYMPH NODES: There is no intrapelvic nor inguinal adenopathy. GI: No evidence of appendicitis.Sigmoid diverticuli but no evidence of acute diverticulitis. URINARY BLADDER: There is a Mckeon catheter noted in the urinary bladder. Bladder is collapsed around the Mckeon. REPRODUCTIVE: Prostate gland size is not enlarged. Seminal vesicles unremarkable. OSSEOUS: No fractures. Degenerative anterolisthesis L4 upon L5 related to facet arthropathy. No pelon nous osseous lesions. IMPRESSION: 1. Atherosclerotic abdominal aorta with mild aneurysmal dilatation of the entire infrarenal abdominal aorta and significant stenosis at the origin of multiple vessels off the abdominal aorta, as describ ed individually above. No dissection. 2. There is arterial megaly of both common iliac arteries but no significant stenosis in these vessel s nor dissection. External iliac arteries are nicely patent. 3. Left SFA is occluded at its origin. This patient has a below-knee amputation on left side. 4. There is moderate atherosclerotic disease throughout the right SFA, with most prominent stenosis b eing at the level of Sky's canal. There is also moderate atherosclerotic disease throughout the r ight popliteal artery, without evidence of right popliteal artery aneurysm. 5. There is less than optimal opacification of the runoff vessels of the right calf. However, there is severe multilevel calcified atherosclerotic disease in the right and posterior tibial arteries an d the dominant runoff vessel in the right calf is the right peroneal artery. Incidentally noted is a lobulated hypodense mass with measurements as above in the spleen. Statistic ally this is either irregular cyst or hemangioma but difficult to assess accurately on this type of a rterial phase study. More concerning splenic pathology cannot be excluded. Spleen size itself is no rmal. RADIATION DOSE DELIVERED: 1,417.57mGy.cm Total DLP DATA REPOSITORY: All CT scans at this facility are submitted to the National Radiology Data Registry (NRDR) Dose Index Registry (DIR) with the [employer] (ACR). RADIATION OPTIMIZATION: All CT scans at this facility use at least one of these dose optimization te chniques: automated exposure control; mA and/or kV adjustment per patient size (includes targeted exa ms where dose is matched to clinical indication); or iterative reconstruction.
[2024-02-21] MEDS: CEFEPIME 2 GM in Normal Saline 100 ML IVPB ×3 (02:00→18:07)
[2024-02-21] MEDS: Melatonin 3 MG TAB 9 MG PO ×2 (02:10→23:35)
[2024-02-21] MEDS: Acetaminophen 325 MG TAB 650 MG PO ×2 (02:11→23:35)
[2024-02-21] MEDS: oxyCODONE 15 MG TAB PO ×3 (02:11→21:12)
[2024-02-21 02:25] VITALS: BP 116/59; PULSE 74; RESP 18; TEMP 36.9; O2SAT 95
[2024-02-21 07:26] VITALS: BP 102/55; PULSE 62; RESP 18; TEMP 36.4; O2SAT 93
[2024-02-21] MEDS: Enoxaparin 40 MG/0.4 ML SYR SC (08:18)
[2024-02-21] MEDS: Clopidogrel 75 MG TAB PO (08:19)
[2024-02-21] MEDS: Pantoprazole 40 MG TABCR PO (08:19)
[2024-02-21] MEDS: Cholecalciferol (Vitamin D3) 1,000 UNIT TAB 2000 UNITS PO (08:19)
[2024-02-21] MEDS: Docusate Sodium 100 MG CAP PO ×2 (08:19→21:11)
[2024-02-21] MEDS: Ezetimibe 10 MG TAB PO (08:19)
[2024-02-21] MEDS: Gabapentin 300 MG CAP 900 MG PO (08:19)
[2024-02-21] MEDS: Aspirin 81 MG CHEW PO (08:19)
[2024-02-21] MEDS: Lisinopril 2.5 MG TAB PO (08:19)
[2024-02-21] MEDS: Normal Saline Flush 10 ML SYR IVP ×5 (08:20→23:36)
[2024-02-21] MEDS: Nystatin POWDER 60 GM JAR TP ×2 (08:20→21:24)
[2024-02-21] MEDS: Nystatin OINT 15 GM TUBE TP (08:20)
[2024-02-21] MEDS: Insulin Aspart 300 UNITS/3 ML PEN 6 UNITS SC ×3 (08:21→18:03)
--- NOTE | 2024-02-21 10:22 | PT.INTREAT ---
PT Notes Visit Reasons: Diabetic foot wound, Osteomyelitis Physical Therapy Inpatient Treatment Note Date: 02/21/2024 Precautions: Fall. ON CONTACT PRECAUTIONS FOR MRSA. Residual L-sided hemiparesis. 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 L transtibial prosthesis and R spiral AFO (unable to don R spiral AFO at this time) in place when OOB. Post-op shoe on the R foot when OOB. Protected weight bearing on the R LE due to plantar sore during essential transfers only. Subjective: Agreeable to getting out of bed. Complained of soreness in R foot with minimal weight bearing during today's standing activity. Objective: General Observation: Dressing on R foot. Nurse Karen in room when PT came in. Mental Status: Alert and oriented as to person, place, time, and purpose. Able to pay attention, focus, and respond appropriately. Speech intelligible. Pain: Soreness reported on R planta area with minimal weight bearing Vital Signs: Closely monitored by nursing staff Bed Mobility/Transfers: (Patient performed this with Darshan Salvador this morning) Minimal cueing provided for use of B hands as needed for support, movement sequence, AD management, and posture to reduce fall risk and minimize pain report Supine to sit moderate assist of 2 with HOB at 45 degrees Scoot forward to edge of bed minimal assist with R UE pulling on R belt tied at FOB Sit to stand minimal assist of 2 using both hands for support using STEDY lift Stand to sit minimal assist of 2 using both hands for support using STEDY lift Bed to bedside recliner minimal assist of 2 using both hands for support using STEDY lift Gait: Unable due to medical status Balance: Static Sitting: Fair Dynamic Sitting: Fair Static Standing: Poor Dynamic Standing: Unable THERA EX: Worked on increasing B UE strength and promotion of increased circulation to B LE with direct instruction/guidance on safe exercise performance while in supine: Unilateral diagonal chop exercises against red TB x 5 R Unilateral diagonal chop exercises against red TB x 5 L (active assistive) Bilateral UE chop exercise with assiatnce provided to ensure B hands are clasped x 10 R Deep breathing exercises x 5 Bilateral UE chop exercise with assistnce provided to ensure B hands are clasped x 10 L R [id number] exercise x 10 L [id number] exercise x 10 Deep breathing exercises x 5 Gluteal sets 5 sh x 10 Quadriceps sets 5 sh x 10 Gentle passive stretches to R ankle plantarflexors with use of padding to cushion plantar sore Sit<>stand from bedside recliner and edge of bed x 7 reps with about 30 seconds static standing while holding onto STEDY (with LNAs Jackie and Dionnen) Partial sit ups from a reclined position to 90 degrees sitting x 5, PT supporting L hand placed on end of L chair arm rest ASSESSMENT: patient demosntrates incrasing tolreance to exercises Plan of Care/Treatment Plan: Patient will highly benefit from skilled physical therapy services including functional mobility training, bed mobility/transfer training, gait and balance training, therapeutic exercises, therapeutic activity, caregiver/staff/family education and training 1x/day, 7 days/week x 1 week. Initiate Physical Therapy intervention for strengthening, bed mobility, transfers, gait, stairs, balance training, use of assistive device. DISCHARGE RECOMMENDATIONS: [] Home with no services [] [] Home with services [specify] [] Home with outpatient PT [] [X] SNF for continued rehabilitation. Patient will benefit from snf facility placement for continued skilled physical therapy services in order to progress mobility level, strength, and balance in preparation for a safe discharge to home. [] Master Sheet Clerk Care [] [] SNF versus LTC based on ability to participate and progress [] TREATMENT CODE/TIME: 96965 x 38 minutes for 2 units (10:22-11:00).
[2024-02-21] MEDS: VANCOMYCIN/WATER (PEG) 1 GM/200 ML BAG IV ×2 (11:01→23:34)
[2024-02-21 11:35] VITALS: BP 105/57; PULSE 71; RESP 18; TEMP 36.5; O2SAT 96
[2024-02-21] MEDS: Insulin Aspart 300 UNITS/3 ML PEN SC (11:49)
--- NOTE | 2024-02-21 12:59 | OCONE_ITS ---
Date of service: 02/21/24 Time of Service: 12:59 History of Present Illness History of Present Illness Chief Complaint: R Foot Infection with Sepsis Narrative: Jason is a 73-year-old male who has a very complex medical history. 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 He had been doing very well on the left side with his prosthesis over the years although he has had some issues with an infection of the stump site which has been able to been treated with outpatient methods. On the morning of December 18, 2023 he awoke with changes in his speech and weakness to his left arm and left leg. He was seen in the emergency department and diagnosed with a posterior circulatory stroke. There were noted calcifications in both carotid arteries but no intracranial hemorrhage. He had a significant hemiparesis affecting the left side and thus was discharged to acute stroke rehabilitation at [facility]. Given that he was using his right side more often he reports pushing off with that constantly in the bed trying to mobilize. It is unclear exactly when this wound was noted although he reports not having any wounds to the right foot prior to admission to the rehabilitation facility. He was at the acute rehabilitation center in [place] where he started evolving blisters. He then was transferred to [facility] and rehab. No point did he have a wound consultation. No point did he remember having any offloading done to the right foot. A wound culture was performed by someone in the rehabilitation center on 29 January which grew MRSA as well as Alcaligenes faecalis. These wounds are being cared for with antibiotics and local wound care per his report until he started to have significant malodor. He then presented to the emergency department on 15 February. He has been treated with IV antibiotics. He has persistent thrombocytosis which is usual for him. He did have a notable leukocytosis and elevation of inflammatory markers consistent with infection. He denies significant pain. He currently denies any fevers or chills. He has been having daily dressing changes to the right foot. He is resting with a postop shoe on the right foot. Consults Consult date: 02/21/24 Requesting physician: Bhaskar Galeas Consult Reason Right Foot Wounds and Infection Assessment and Plan Assessment and plan (1) Acute osteomyelitis of metatarsal bone of right foot: Status: Acute Assessment and plan: The wound of the right foot obviously goes down to the head of the third metatarsal. The MRI confirms a diagnosis of osteomyelitis and given the location of the wound this is not salvageable. At this point I do think source control may be obtained by resection of the third metatarsal head and debridement of the wound. However, there is close proximity of the wound bed to the second metatarsal and fourth metatarsal and therefore it may make sense to proceed with shortening osteotomies of the second, third, and fourth metatarsals, transmetatarsal potation, leaving the first metatarsal. This may change his weightbearing status which is concerning. I think this could be determined at the time of debridement. Ability to heal this will also be determined based on the vascular status of his leg. Continue with antibiotics currently. Nonweightbearing right lower extremity. (2) Diabetic infection of right foot: Status: Acute (3) Diabetic ulcer of right heel: Status: Acute Assessment and plan: Infected wound about the right heel is actually more concerning. There is expressible purulence from the right heel which was resting against the edge of the bed in the postop shoe. It is imperative that this right leg stays elevated with no contact of the heel. This wound about the posterior lateral aspect of the right foot is directly related to contact in the setting of likely vasculopathy and ongoing diabetes. The MRI does not show signs of osteomyelitis about the calcaneus and it does not show any significant deep penetration of the wound although it does look relatively deep on the clinical evaluation. This could be debrided although likely left behind with a large skin defect which may not be able to heal based on vascular status. (4) Atherosclerosis of arteries: Status: Acute Assessment and plan: I would like to obtain a CTA of the right lower extremity given his history of atherosclerosis elsewhere including recent stroke. I am concerned that any attempts at healing these wounds were being limited by his vascular status. He also may be why he has continued infection markers despite heavy antibiotics is because of poor delivery to the soft tissues in the area. Based on the results of the CT, neck step may be determined. Irrigation and debridement of the wounds may provide some answer to the specific antibiotic necessary for the particular organisms which are growing. However, debridement may also create larger wounds which will not be able to heal based on vascular status. Given that the wounds may need further involvement I do think this would be best treated at a wound care center that has plastic surgery and vascular surgery to address these wounds and try to salvage the right foot given his below-knee amputation on the left side and recent CVA with hemiparesis. This is a very complex case involving multiple services which would best be served in a tertiary center however, this case has been rejected on initial attempts at transfer. Additionally, the patient has declined transfer to [facility], another [facility] tertiary center. I discussed all this with Dr. Galeas in consultation. I will also reach out to Dr. Robles to see if she has any thoughts and to see if she may be able to assist in his care depending on the results of the above test. Review of Systems All systems reviewed & are unremarkable except as noted in HPI and below PFSH All Active Problems (Updated 02/21/24 @ 13:20 by Portillo Rendon MD) Acute osteomyelitis of metatarsal bone of right foot (Acute) Edema (Acute) Advanced care planning/counseling discussion (Acute) Depression (Chronic) 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 of cerebrovascular accident (Acute) Diabetic infection of right foot (Acute) Diabetic ulcer of right heel (Acute) Atherosclerosis of arteries (Acute) Thrombocytosis (Acute) Acute cerebrovascular accident (CVA) (Acute) Removal of staple (Acute) Former smoker (Acute) Type 2 diabetes mellitus (Acute) Vitamin D deficiency (Acute) Spinal stenosis (Acute) Sleep apnea (Acute) Peripheral neuropathy (Acute) Hyperlipidemia (Acute) Hearing loss (Acute) Current non-smoker but past smoking history unknown (Acute) Amputation of leg (Acute) L - 2006 Amputation of right foot (Acute) History of left below knee amputation (Acute) Diabetic polyneuropathy (Acute) Primary osteoarthritis of left shoulder (Chronic) Tinnitus, bilateral (Acute 05/16/17) Sensorineural hearing loss (SNHL) of both ears (Chronic 05/16/17) Medical History Infrarenal abdominal aortic aneurysm (AAA) without rupture Biceps tendon rupture Hx of fall Change in bowel function Leg weakness Lightheadedness Rotator cuff tear arthropathy of right shoulder Rotator cuff tear arthropathy of left shoulder Impacted cerumen, right ear Infected sebaceous cyst of skin Weight gain Sebaceous cyst (~08/19/19) referral states Right anterior chest Rupture of right distal biceps tendon (~09/2018) Osteomyelitis Foot drop, right Diabetic foot ulcer Ulcer of foot Shoulder pain, left Calf pain Bronchitis Physical deconditioning Insomnia Skin irritation Abdominal pain DNR (do not resuscitate) Myalgia Balance problem B12 deficiency Dysphagia Partial tear of left rotator cuff Most recent injection: 06/30/19 S/P RTC repair by Dr. Jarrett September 2017 MRI from 02/2018 showed full-thickness re-tear supraspinatus and infraspinatus Cellulitis of right toe right 4th toe Impingement syndrome of left shoulder SURGERY 10/09/17 Other synovitis and tenosynovitis, left shoulder SURGERY 10/09/17 Complete rotator cuff tear of left shoulder SURGERY 10/09/17 Discharge planning issues DVT prophylaxis Amputated toe of right foot Acute appendicitis with localized peritonitis Hernia of anterior abdominal wall Surgical History S/P cholecystectomy open History of transmetatarsal amputation of right foot History of colonoscopy H/O esophagogastroduodenoscopy (~06/09/18) History of spinal surgery Status post rotator cuff surgery Rotator Cuff Repair Repair of inguinal hernia Appendectomy (06/11/16) Amputation left below knee amputation Family History Mother CAD (coronary artery disease) Maternal Grandmother Diabetes Social History Smoking/Tobacco Use Status: Former Tobacco Use Quit Date: 02/18/17 Smoking risk assessment performed?: Yes Alcohol Intake: former Drug use: Never Substance use type: does not use Details: Pt states quit smoking 09/2017 Housing: house Current gender identity: male Do you feel safe at home: Yes Do you feel safe in your relationship?: Yes Additional Social history: Grew up outside of [place] in town in [place]. 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 Exam Const General: cooperative, healthy appearing, comfortable and no acute distress Extrem Other: Left BKA shows some mild redness and swelling of the stump but no defect in the incision site. No wounds. No signs of active infection. No pain to palpation. Evaluation the right lower extremity shows multiple wounds about the right foot with dried, thick and eschar. There is one proximally at the level of the heel overlying the posterior lateral corner of the calcaneus and heel section. There is no exposed bone. There is undermining of the skin with green discoloration and expressible purulence from the plantar skin adjacent to this wound. The wound measures approximately 6 x 4 cm. There is no surrounding erythema. There is no streaking. There is some pain to palpation particular of the medial aspect of the hindfoot and at the level of the arch. There is no crepitus with palpation. There is no expressible purulence from the midfoot. Distally, there is a large 3 cm round wound once again with dried eschar over the midportion of the distal foot. There is a defect in the skin. There appears to be bone visible at the depth of the wound. There is no linus streaking. However, there is some redness seen around this area. There is no expressible purulence in this area. There is no crepitus palpation in the surrounding areas. Results Last Vital Signs Temp 36.5 C 02/21/24 11:35 Pulse 71 02/21/24 11:35 Resp 18 02/21/24 11:35 BP 105/57 L 02/21/24 11:35 Pulse Ox 96 02/21/24 11:35 Labs 02/19/24 06:04 02/19/24 06:04 Labs: Laboratory Results - last 24 hr 02/20/24 16:03 Random Vancomycin 28.5 Imaging Imaging Studies: X-ray of the right foot performed on February 02 as well as February 15 shows soft tissue gas at the distal aspect of the forefoot. There are some changes to the second metatarsal head. There is no other erosive changes appreciated on these x-rays. MRI of the right foot from February 16 was reviewed. This shows obvious osteomyelitis of the third metatarsal head. I do not see any other significant changes to the surrounding metatarsal heads although there is adjacent soft tissue inflammation of the second metatarsal head. There is an obvious skin defect that goes all the way to the tip of the plantar aspect of the metatarsal head. This wound is biased plantarly on the MRI with noted chronic deformity of the second metatarsal head. The area of the wound about the heel is not fully visualized on all sequences but I do not see any changes within the calcaneus. There is a rim of hyperintense fluid seen over the lateral hindfoot extending almost to the midline of the posterior aspect of the hindfoot. There is no subcutaneous emphysema. There is no abscess collection.
--- NOTE | 2024-02-21 13:01 | W.PM.PROGNOT ---
Date of Service Date of service: 02/21/24 Time of Service: 13:01 Assessment and Plan Assessment and plan (1) Diabetic infection of right foot: Status: Acute Assessment and plan: Worsening despite outpatient antibiotic therapy with increasing WBC count. History of MRSA (in skin wound on chest). At risk for pseudomonas given DM wound on foot. I agree with cefepime and vancomycin pending cultures Hopefully we can get a deep tissue culture as well with surgical evaluation. He has seen podiatry in the past, hasn't established with surgery for his, will consult podiatry Clinically, with visible bone per ED and elevated ESR there is a good chance he has osteomyelitis, regardless of XR findings. He may need prolonged antibiotic therapy, possible amputation. Will await podiatry evaluation as I'm not sure he needs MRI to make diagnosis. There is a lot of swelling in the entire right leg, will get vascular u/s in am, though my pretest probability is not high enough to start full dose anticoagulation overnight. 02.17.24 Per available schedule, neither Ortho or podiatry are available this week. Actually [place] is available today only and I will reach out to him to see if he is interested. Possibly, GS can get involved 02.18.24 As mentioned above, Podiatry or Ortho are available this week and the pt does not want to be transferred. At this point, the plan is to continue with abx and get ortho or podiatry to see the pt as soon as available. Not ideal but I don't see a better option at this point .04.14 Per charge nurse, Podiatry should be available tomorrow. Plan is to connect in am .05.12 Patient was actually seen in consultation today by Dr. Rendon of the orthopedic service. He is ordering a CT angiogram to assess blood flow as well as possible wound healing potential. Originally, the patient refused transfer and wanted to be have this treated at a local level. Unfortunately the paving plant operator was not available. I did discuss this with Dr. Siu of the general surgery service who stated that due to the possible complications of the case he would recommend a bone and or client solutions specialist. An MRI was performed on the which did show osteomyelitis. The patient continues on cefepime and vancomycin. Await further recommendations from orthopedics. On the second, I did discuss the case with Dr. Claudio Auguste at [facility] who did not see a reason to transfer at that point. (2) Type 2 diabetes mellitus: Status: Acute Assessment and plan: A1c 6.1% in November, which represents overly aggressive control given his age and comorbities. Will continue outpatient medication. After low A1c he has been cutting back on insulin, I lowered the doses here. He was getting high sugars 10 days ago at PCP office [place], so we may need to titrate further. Hold GLP-1 as he may need surgery. 02.18.24 Pt is currently on RISS as well as asparate 6u tid. 02.20.24 Most recent BG readings are 143/146/221/172. Will c/w care (3) 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 of cerebrovascular accident: Status: Acute Assessment and plan: Continue ASA and high intensity statin. He is done with 21 days of DAPT, but according to PCP he is still on DAPT related to his ongoing thrombocytosis pending hematology evaluation. Will continue clopidogrel as well for now. Hemeparesis and wounds, amputations affecting his ADLs. He may need additional rehabilitation or addition help at home. He does not want to go back to [facility]. Looks like he has had some minor swallowing issues since his stroke, adjust diet to small bite size. (4) Depression: Status: Chronic Assessment and plan: Vs adjustment, being treated with fluoxetine. Unfortantely this medication can affect his clopidogrel. Will plan to change to sertraline, but wait until discharge as otherwise will get too much overlap in effect given fluoxetine's long half life. (5) DVT prophylaxis: Assessment and plan: High risk, enoxaparin (6) Edema: Status: Acute Assessment and plan: Exact etiology is unknown but I do have some concerns for CHF. Will check BNP and consider echo is one hasn't been done in the past. My guess is that he had an echo recently 2/2 CVA work up. Will check albumin in light of echo findings echo 12/19/23 Conclusion Technically limited study Left ventricular wall thickness chamber size and systolic function appear within the range of normal Normal right ventricular function and size Both atria are normal in size Aortic valve is trileaflet and mildly sclerotic Mild mitral annular calcification Study is technically inadequate to determine if any intracardiac shunting was present (7) Thrombocytosis: Status: Acute Assessment and plan: Pt continues to have elevations in his platelets. Pt does have an appt with Astronomy Department Chair which is pending (8) Infrarenal abdominal aortic aneurysm (AAA) without rupture: Assessment and plan: abd/pelvic CT 10/20/23 ABDOMINAL AORTA: The abdominal aorta is atherosclerotic and there is a fusiform infrarenal abdominal aortic aneurysm below the level the inferior mesenteric artery takeoff point, this exhibiting maximum diameter of 3.2 cm. The common iliac arteries are calcified and minimally prominent. Will need surveillance at the discretion of the PCP Subjective Subjective Interval history since last seen: Pt seen and examined in his room. Pt denies fevers and chills. POC d/w pt and with bedside nurse at [facility]. Pt was seen in consultation by Ortho ([facility]) as well. Plan is to get CT angiogram to assess blood flow and wound healing potential Exam Narrative Exam Narrative: HEENT: Normocephalic atraumatic mucous memories moist oropharynx is clear extract motions are intact Neck: No lymphadenopathy no JVD no thyromegaly Respiratory: No accessory muscle use noted speaking in complete sentences Lower extremities: left aka and right LE with amputation and bandaged. Neuro: Cranial nerves II through XII intact as tested General: Alert and oriented, can give a linear history. Objective Last Vital Signs Temp 36.5 C 02/21/24 11:35 Pulse 71 02/21/24 11:35 Resp 18 02/21/24 11:35 BP 105/57 L 02/21/24 11:35 Pulse Ox 96 02/21/24 11:35 Laboratory Results - last 24 hr 02/20/24 16:03 Random Vancomycin 28.5 Time Spent with Patient Time Spent with Patient: 35-49 minutes Time was spent: preparing to see the patient(eg.review tests), obtaining and/or reviewing separately otained hiistory, ordering medications,tests, procedures, referring, communicating with other health care coordination manager, indepentently interpreting results, counseling the patient and care coordination
--- NOTE | 2024-02-21 14:35 | CMPROGNOTE_ITS ---
Date of service: 02/21/24 Time of Service: 13:00 Care Management Progress Note Progress Note Text Progress Note Text: lEoy was up in the bedside chair when CM met with him today. He was very pleasant, and easily conversed. He expressed concern over the possibility of losing his right foot. Ortho was able to meet with him, and ordered a CT for today, to check on his vascular status. Testing was delayed due to Eloy losing his IV access. Eloy is also in fear of losing only the 3rd toe on his right foot. He has poor balance as it is, and he fears this will make it worse. Eloy expressed anger that this happened due to poor care at a rehab facility, and f ear about what the rest of his life will look like. Discharge Potential Discharge Needs: PCP F/U Appt and Surgical F/U Appt Anticipated Barriers to Discharge: Medical Status (may need prolonged course of IV antibiotics) Patient/Family Education Needs: Review discharge instructions, discuss Ask Me Three Transportation: Private vehicle Plan: Anticipate Eloy will be discharged home with a resumption of home health services when medically cleared. It is possible he may need senior living IV antibiotics and he is willing to do either home infusions or SB-1. He will follow up with his surgeon and PCP and plan of care and transport with family. CM will follow and continue to assess for discharge needs. Social Determinants of Health Screening Social Determinants of Health last assessed: 02/21/24 Will the Patient Participate in the Screening?: Yes Do you worry about having a steady place to live?: no Problems where you live: no known problems In the past 12 months, have you had to go without electric, gas, oil or water in your home?: no Have you or anyone in your house had to go without enough food to eat?: no Has lack of transportation kept you from medical appointments or from doing things needed for daily living?: no Has anyone in your life made you feel unsafe or unsupported?: no How hard is it for you to pay for the very basics like food, housing, medical care, and heating? Would you say it is:: Somewhat hard (concerned about medical bills; has [facility] financial assistance) Do you want help finding or keeping work or a job?: I do not need or want help If for any reason you need help with day-to-day activities such as bathing, preparing meals, shopping, managing finances, etc., do you get the help you need?: I get all the help I need (feels well supported at home) How often do you feel lonely or isolated from those around you?: Sometimes Do you speak a language other than [place] at home?: No Does the patient want assistance with any of the above?: No Health Related Social Needs Health related social needs: problems related to housing/economic circumstances (Z59.89) and feeling lonely/isolated (Z60.8)
[2024-02-21 15:15] VITALS: BP 114/57; PULSE 64; RESP 18; TEMP 36.6; O2SAT 96
--- NOTE | 2024-02-21 16:09 | PT.INTREAT ---
PT Notes Visit Reasons: Diabetic foot wound, Osteomyelitis Date: 02/21/2024 PRECAUTIONS: Fall. ON CONTACT PRECAUTIONS FOR MRSA. Residual L-sided hemiparesis. 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 L transtibial prosthesis and R spiral AFO (unable to don R spiral AFO at this time) in place when OOB. Post-op shoe on the R foot when OOB. Protected weight bearing on the R LE due to plantar sore during essential transfers only. SUBJECTIVE: PT agrees to paricipating with bed level activity refused standing activity, very frustrated, was a little bit difficult to redirect. OBJECTIVE: ? PAIN: right plantar pain VITALS: monitored by nursing STAIRS:? Therapeutic Exercises 50440: Direct one-on-one instruction in therapeutic exercises to develop strength, endurance, range of motion and flexibility. Exercises: Supine SLR [id number] Supine knee to chest [id number] Supine hip abduction [id number] RUE shoulder flexion 88d0jxx, shoulder abduction 18g2bwj, elbow flexion 50u9xkb forearm pronation supination 12a7wrl, wrist flexion extension 66n3jfq all activity done with 3# dumbell LUE AAROM/PROM shoulder flexion 24v1wqj, shoulder abduction 58d8acu, elbow flexion 48j6yxg forearm pronation supination 24w2vrr, wrist flexion extension 75i1xof Provided skilled instruction in proper exercise performance Provided skilled manual cues to facilitate proper muscle recruitment and/or form: ASSESSMENT:?Pt very depressed with his present predicament, requires motivating to be able to participate with therapy session. PLAN: Continue with balance training, global strengthening and general conditioning for improved safety, mobility and activity tolerance until pt is ready for DC. TREATMENT CODE/TIME: 36224f4 30mins (3:30-4:00pm)
[2024-02-21] MEDS: metFORMIN 500 MG TAB PO (18:04)
[2024-02-21] MEDS: HYDROmorphone 2 MG/ML SYR IV (18:26)
[2024-02-21] MEDS: Omnipaque 350 MG/ML 50 ML BTL IJ (19:48)
[2024-02-21] MEDS: Normal Saline - Diluent 50 ML VIAL IJ ×2 (19:49→19:51)
[2024-02-21] MEDS: Omnipaque 350 MG/ML 100 ML BTL IJ (19:50)
[2024-02-21 20:08] VITALS: BP 118/48; PULSE 83; RESP 15; TEMP 36.9; O2SAT 96
[2024-02-21] MEDS: LORazepam 0.5 MG TAB PO (21:11)
[2024-02-21] MEDS: Gabapentin 300 MG CAP 1500 MG PO (21:11)
[2024-02-21] MEDS: Rosuvastatin 20 MG TAB PO (21:12)
[2024-02-21] MEDS: Insulin Glargine 300 UNITS/3 ML PEN 48 UNITS SC (21:22)
--- NOTE | 2024-02-21 21:30 | DI.VRAD_ITS ---
PROCEDURE INFORMATION: Exam: CTA Abdominal Aorta and Bilateral Lower Extremities (Run-off) With Contrast Exam date and time: 02/21/2024 7:45 PM Age: 73 years old Clinical indication: Other: Evaluate vascular status of rle TECHNIQUE: Imaging protocol: Computed tomographic angiography of the of the abdominal aorta, pelvis and bilateral lower extremities with contrast. 3D rendering (Not supervised by radiologist): MIP and/or 3D reconstructed images were created by the technologist. Contrast material: OMNI 350; Contrast volume: 150 ml; Contrast route: INTRAVENOUS (IV); COMPARISON: MR LOWER EXTREMITY RT WO/W 02/17/2024 2:22 PM FINDINGS: Aorta: Moderate diffuse mural thrombus and atherosclerotic calcification throughout the aorta. Mild fusiform dilation of the infrarenal aorta measuring maximum diameter of 2.8 cm. Celiac trunk and mesenteric arteries: No occlusion or significant stenosis. Renal arteries: Severe stenosis of the origin of the bilateral renal arteries. Right iliac arteries: No occlusion or significant stenosis. Right femoral/popliteal arteries: There is moderate short-segment stenosis in the distal right superficial femoral artery. Right infrapopliteal arteries: There is poor contrast opacification of the infrapopliteal arteries in the right lower extremity. The right posterior tibial and peroneal arteries appear patent to the level of the ankle. The right anterior tibial artery exhibits moderate to severe multilevel stenosis with possible mid to distal occlusion. Left iliac arteries: No occlusion or significant stenosis. Left femoral/popliteal arteries: There is diffuse near-complete occlusion of the left superficial femoral artery with reconstitution of flow in a small portion of the distal left SFA via collateral vessels. There is complete occlusion of the left popliteal artery. Remaining proximal portions of the branches of the left popliteal trifurcation appear patent. Left infrapopliteal arteries: No occlusion or significant stenosis. Liver: No mass. Gallbladder and biliary ducts: Gallbladder may be contracted or surgically absent. Small rounded fluid collection in the gallbladder fossa may represent small gallbladder or sequela of prior cholecystectomy. Pancreas: Unremarkable. No mass. No ductal dilation. Spleen: 5.4 cm irregular hypoechoic mass, possibly cyst or hemangioma. Adrenal glands: Normal. No mass. Kidneys and ureters: Normal. No mass. Stomach and bowel: Unremarkable. No obstruction. No mucosal thickening. Appendix: No evidence of appendicitis. Urinary bladder: Mckeon catheter is present in the urinary bladder. Reproductive: Unremarkable as visualized. Intraperitoneal space: Unremarkable. No free air. No significant fluid collection. Lymph nodes: No lymphadenopathy. Bones/joints: Severe facet arthropathy in the lower lumbar spine. Grade 1 anterolisthesis of L4. Bzdn-sh-bbcsuscd multilevel degenerative disc changes noted throughout the lower spine. No vertebral body compression. No acute fracture. Mild degenerative changes of both knees. There has been prior ksjft-[id number]-aquz amputation on the left. There has been prior amputation of the phalanges throughout the right forefoot. Soft tissues: There is diffuse subcutaneous soft tissue edema throughout the right lower extremity. Diffuse muscular atrophy noted throughout the right lower lobe. Soft tissue ulceration of the stump of the right foot noted. IMPRESSION: 1. Limited evaluation of the infrapopliteal vessels of the right lower extremity. Suspected severe multilevel stenosis and possible mid to distal occlusion of the right anterior tibial artery. Right posterior tibial and peroneal arteries appear patent to the level of the ankle. 2. Moderate short-segment stenosis in the distal right SFA. Right femoral/popliteal arteries otherwise appear widely patent. 3. Severe bilateral renal artery stenosis. 4. Likely chronic diffuse occlusion of the left superficial femoral/popliteal artery. The femoral collaterals preserved flow to the remaining proximal portions of the left infrapopliteal arteries. 5. Diffuse subcutaneous soft tissue edema of the right lower extremity with significant muscular atrophy in the right lower leg 6. Hypodense 5.4 cm mass in the spleen, possibly irregular cyst or hemangioma. Correlation with hemangioma protocol CT and/or ultrasound recommended. Dictated and Authenticated by: Ta Colunga MD. Ordering:AMADA Nath MD
[2024-02-21 22:59] VITALS: BP 120/49; PULSE 79; RESP 17; TEMP 36.7; O2SAT 94
[2024-02-22 02:45] VITALS: BP 112/47; PULSE 61; RESP 16; TEMP 35.6; O2SAT 94
[2024-02-22] MEDS: CEFEPIME 2 GM in Normal Saline 100 ML IVPB ×3 (03:40→21:09)
[2024-02-22] MEDS: Normal Saline Flush 10 ML SYR IVP ×7 (03:40→20:57)
[2024-02-22] MEDS: oxyCODONE 15 MG TAB PO ×2 (03:58→20:58)
[2024-02-22 06:36] LABS: Abs Immature Grans 0.12 10^3/uL (0.0-0.06); Absolute Basophil Count 0.14 10^3/uL (0.0-0.2); Absolute Monocyte Count 0.84 10^3/uL (0.1-0.8); Absolute Neutrophil Count 10.38 10^3/uL (1.2-6.7); Eosinophils % 5.2 %; HCT 30.9 % (40.0-50.0); HGB 9.9 g/dL (13.5-17.5); Immature Grans % 0.9 %; Lymphocytes % 12.5 %; MCH 28.2 pg (27.0-33.0); MCV 88 fL (80-95); MPV 10.4 fL (8.0-11.0); Neutrophils % 74.4 %; RBC 3.51 10^6/uL (4.36-5.78); RDW 14.9 % (11.8-14.1); RDW-SD 47.7 fL; WBC 13.95 10^3/uL (4.4-10.8)
[2024-02-22 06:45] LABS: Absolute Eosinophil Count 0.73 10^3/uL (0.0-0.7); Absolute Lymphocyte Count 1.74 10^3/uL (1.2-3.4)
[2024-02-22 06:58] LABS: ALT 12 U/L (16-63); AST 16 U/L (15-37); Alkaline Phosphatase 63 U/L (46-116); Anion Gap 7.2 mmol/L (3-11); BUN 22 mg/dL (7-18); Bilirubin, Total 0.26 mg/dL (0.2-1.0); CO2 25.8 mmol/L (21.0-32.0); CREATININE 1.2 mg/dL (0.70-1.30); Calcium 8.7 mg/dL (8.5-10.1); Chloride 104 mmol/L (98-107); Estimated GFR 63.85 (mL/min/1.73m2); Glucose 151 mg/dL (74-106); Potassium 4.6 mmol/L (3.5-5.1); Sodium 137 mmol/L (136-145); Total Protein 6.3 g/dL (6.4-8.2); Vancomycin, Random 23.1 ug/mL
[2024-02-22 07:04] LABS: Platelet Count 774 10^3/uL (130-400)
[2024-02-22 08:08] VITALS: BP 115/61; PULSE 73; RESP 16; TEMP 36.4; O2SAT 94
[2024-02-22] MEDS: Lisinopril 2.5 MG TAB PO (08:45)
[2024-02-22] MEDS: Aspirin 81 MG CHEW PO (08:45)
[2024-02-22] MEDS: Ezetimibe 10 MG TAB PO (08:45)
[2024-02-22] MEDS: Docusate Sodium 100 MG CAP PO ×2 (08:45→20:56)
[2024-02-22] MEDS: Cholecalciferol (Vitamin D3) 1,000 UNIT TAB 2000 UNITS PO (08:45)
[2024-02-22] MEDS: Clopidogrel 75 MG TAB PO (08:46)
[2024-02-22] MEDS: Gabapentin 300 MG CAP 900 MG PO (08:46)
[2024-02-22] MEDS: Pantoprazole 40 MG TABCR PO (08:46)
[2024-02-22] MEDS: Insulin Aspart 300 UNITS/3 ML PEN 6 UNITS SC ×2 (08:48→12:07)
[2024-02-22] MEDS: Enoxaparin 40 MG/0.4 ML SYR SC (08:49)
[2024-02-22] MEDS: Nystatin POWDER 60 GM JAR TP ×3 (08:50→20:57)
[2024-02-22] MEDS: Nystatin OINT 15 GM TUBE TP (08:51)
--- NOTE | 2024-02-22 11:24 | PHA.REVIEW2 ---
Pharmacy Admission Review Admission Clinical Review Admission Pharmacy Review: Acute osteomyelitis of metatarsal bone of right foot (Acute) Edema (Acute) Advanced care planning/counseling discussion (Acute) 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 of cerebrovascular accident (Acute) Diabetic infection of right foot (Acute) Diabetic ulcer of right heel (Acute) Atherosclerosis of arteries (Acute) Thrombocytosis (Acute) Type 2 diabetes mellitus (Acute) levofloxacin Allergy (Severe, Verified 02/16/24 14:33) critical onion Allergy (Severe, Verified 02/16/24 14:33) raw onion Penicillins Allergy (Severe, Verified 02/16/24 14:33) Anaphylaxsis Sulfa (Sulfonamide Antibiotics) Allergy (Severe, Verified 02/16/24 14:33) Hives sulfamethoxazole (From Bactrim) Allergy (Severe, Verified 02/16/24 14:33) Hives trimethoprim (From Bactrim) Allergy (Severe, Verified 02/16/24 14:33) Hives simvastatin Adverse Reaction (Severe, Verified 02/16/24 14:33) faints Resuscitation Status DNR/DNI Height 6 ft 1 in Weight 118.026 kg Comments Comments/Follow Ups: Follow up metformin (see current meds section) Pharmacy Admission Review Renal Dosing Renal Dosing: BUN 22 mg/dL (7-18) H 02/22/24 05:45 Creatinine 1.2 mg/dL (0.70-1.30) 02/22/24 05:45 Medications needing adjustments: Reviewed (CrCl 73.79 mL/min, BUN increased from 19) List of meds needing interventions: Current medications are okay Anticoagulation Anticoagulation: Hgb 9.9 g/dL (13.5-17.5) L 02/22/24 05:45 Hct 30.9 % (40.0-50.0) L 02/22/24 05:45 Plt Count 774 10^3/uL (130-400) H* 02/22/24 05:45 Creatinine 1.2 mg/dL (0.70-1.30) 02/22/24 05:45 DVT Prophylaxis: Reviewed (Hgb decreased from 11.6) Medications: Enoxaparin (40mgd aily) Opiate Usage Evaluate Pain Scale/Pains Meds: Reviewed (oxycodone 15mg q6h PRN - 30mg / 24hrs) Scheduled Bowel Reg ordered if on Opiates?: Yes (docusate BID) Relevant Labs Relevant Labs: ESR 72 mm/hr (0-20) H 02/16/24 15:05 Sodium 137 mmol/L (136-145) 02/22/24 05:45 Potassium 4.6 mmol/L (3.5-5.1) 02/22/24 05:45 Chloride 104 mmol/L (98-107) 02/22/24 05:45 Magnesium 1.8 mg/dL (1.8-2.4) 02/16/24 15:05 C-Reactive Protein 6.47 mg/dL (<or=0.5) H 02/16/24 15:05 Electrolytes, C-Reactive P, ESR: Reviewed DM Control DM Control: Glucose 151 mg/dL (74-106) H 02/22/24 05:45 Finger Stick Blood Glucose 135 0848 Finger Stick Blood Glucose 135 0803 Finger Stick Blood Glucose 135 0803 DM Control: Reviewed Insulin Dosing, Diabetic Medication: Has order for SS insulin, 6 units of insulin aspart with meals, 48 units of glargine at bedtime and metformin 500mg daily Cardiac Review Cardiac Review: NT-Pro-B Natriuret Pep 647 pg/mL (<300) H 02/18/24 06:02 BP, HR, EF%: Reviewed (HR and BP WNL) List meds needing interventions: Has order for lisinopril 2.5mg daily QTc Review QTc: Reviewed (401 from 12/18/23 - most recent EKG on file) IV to PO Switch IV Medications: Reviewed (cefepime and vancomycin) Home Meds Home Med List reviewed: Reviewed Relevent Home Meds Not ordered & why?: B12 injection (monthly), Tylenol PM (PRN), Trulicity (has order for SS insulin) and Tresiba (has order for insulin glargine) Current Meds Current Medication Order Review: Intervened Comments: Patient received iohexol last night at 1948. Reached out to provider as patient has active order for metformin (recommended to hold for 48 hours after iohexol use). Waiting to hear back. Pharmacy Antibiotic Review Relevant Labs: WBC 13.95 10^3/uL (4.4-10.8) H 02/22/24 05:45 Temperature 36.4 C Temperature 35.6 C Microbiology 02/16/24 17:35 Blood Culture - Final Blood NO GROWTH 120 HOURS 02/16/24 15:05 Blood Culture - Final Blood NO GROWTH 120 HOURS Pharmacy Antibiotic Activity: Abx regimen adjustment (vancomycin 1g q12h to 1.5g daily) and C/S review Comments: Patient is on cefepime and vancomycin 1.5g q24h, day 5, for osteomyelitis. Vancomycin level came back this morning at 0545 at 23.1. Based on that level dose was changed from 1g q12h to 1.5g q24h with predicted AUC of 497 and trough of 15. Reordered level for tomorrow at 1200. Will adjust dose as needed. Cultures from wound on 01/29 were growing MRSA and Alcaligenes faecalis. WBC increased slightly from 13.42 and blood cultures showing no growth. Comments Comments/Follow Ups: Follow up metformin (see current meds section)
[2024-02-22] MEDS: Insulin Aspart 300 UNITS/3 ML PEN SC ×2 (12:06→17:44)
[2024-02-22 12:13] VITALS: BP 133/58; PULSE 69; RESP 16; TEMP 35.5; O2SAT 96
--- NOTE | 2024-02-22 12:14 | PT.INNT ---
PT Notes Visit Reasons: Diabetic foot wound, Osteomyelitis Pt refused PT services today.
--- NOTE | 2024-02-22 13:15 | W.PM.PROGNOT ---
Date of Service Date of service: 02/22/24 Time of Service: 13:15 Assessment and Plan Assessment and plan (1) Diabetic infection of right foot: Status: Acute Assessment and plan: Worsening despite outpatient antibiotic therapy with increasing WBC count. History of MRSA (in skin wound on chest). At risk for pseudomonas given DM wound on foot. I agree with cefepime and vancomycin pending cultures Hopefully we can get a deep tissue culture as well with surgical evaluation. He has seen podiatry in the past, hasn't established with surgery for his, will consult podiatry Clinically, with visible bone per ED and elevated ESR there is a good chance he has osteomyelitis, regardless of XR findings. He may need prolonged antibiotic therapy, possible amputation. Will await podiatry evaluation as I'm not sure he needs MRI to make diagnosis. There is a lot of swelling in the entire right leg, will get vascular u/s in am, though my pretest probability is not high enough to start full dose anticoagulation overnight. 02.17.24 Per available schedule, neither Ortho or podiatry are available this week. Actually [place] is available today only and I will reach out to him to see if he is interested. Possibly, [facility] can get involved 02.18.24 As mentioned above, Podiatry or Ortho are available this week and the pt does not want to be transferred. At this point, the plan is to continue with abx and get ortho or podiatry to see the pt as soon as available. Not ideal but I don't see a better option at this point .04.14 Per charge nurse, Podiatry should be available tomorrow. Plan is to connect in am .05.12 Patient was actually seen in consultation today by Dr. Rendon of the orthopedic service. He is ordering a CT angiogram to assess blood flow as well as possible wound healing potential. Originally, the patient refused transfer and wanted to be have this treated at a local level. Unfortunately the ribbon blocker was not available. I did discuss this with Dr. Siu of the general surgery service who stated that due to the possible complications of the case he would recommend a bone and or at risk specialist. An MRI was performed on the which did show osteomyelitis. The patient continues on cefepime and vancomycin. Await further recommendations from orthopedics. On the second, I did discuss the case with Dr. Claudio Auguste at [facility] who did not see a reason to transfer at that point. 02.22.24 I have attempted to transfer the pt to four different hospitals without success. Currently the plan is to get washout/deep cultres/debridemet tomorrow. Consider transfer to tertiary center for complex wound healing if available. It is my understanding that podiatry service will be available on Saturday. I did do an FLORENTIN and this did not indicate severe PAD. Also, I did discuss the case with Vascular at [facility] with a Dr. Sosa who did not think a transfer to her service would be necessary from a vascular perspective. Currently, the plan it to have a washout/deep wound culture/and debridement. (2) Type 2 diabetes mellitus: Status: Acute Assessment and plan: A1c 6.1% in November, which represents overly aggressive control given his age and comorbities. Will continue outpatient medication. After low A1c he has been cutting back on insulin, I lowered the doses here. He was getting high sugars 10 days ago at PCP office in [place], so we may need to titrate further. Hold GLP-1 as he may need surgery. 02.18.24 Pt is currently on RISS as well as asparate 6u tid. 02.20.24 Most recent BG readings are 143/146/221/172. Will c/w care (3) 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 of cerebrovascular accident: Status: Acute Assessment and plan: Continue ASA and high intensity statin. He is done with 21 days of DAPT, but according to PCP he is still on DAPT related to his ongoing thrombocytosis pending hematology evaluation. Will continue clopidogrel as well for now. Hemeparesis and wounds, amputations affecting his ADLs. He may need additional rehabilitation or addition help at home. He does not want to go back to [facility]. Looks like he has had some minor swallowing issues since his stroke, adjust diet to small bite size. (4) Depression: Status: Chronic Assessment and plan: Vs adjustment, being treated with fluoxetine. Unfortantely this medication can affect his clopidogrel. Will plan to change to sertraline, but wait until discharge as otherwise will get too much overlap in effect given fluoxetine's long half life. (5) DVT prophylaxis: Assessment and plan: High risk, enoxaparin (6) Edema: Status: Acute Assessment and plan: Exact etiology is unknown but I do have some concerns for CHF. Will check BNP and consider echo is one hasn't been done in the past. My guess is that he had an echo recently 2/2 CVA work up. Will check albumin in light of echo findings echo 12/19/23 Conclusion Technically limited study Left ventricular wall thickness chamber size and systolic function appear within the range of normal Normal right ventricular function and size Both atria are normal in size Aortic valve is trileaflet and mildly sclerotic Mild mitral annular calcification Study is technically inadequate to determine if any intracardiac shunting was present (7) Thrombocytosis: Status: Acute Assessment and plan: Pt continues to have elevations in his platelets. Pt does have an appt with [facility] which is pending 02.21.23 Platelets are currently 774 (8) Infrarenal abdominal aortic aneurysm (AAA) without rupture: Assessment and plan: abd/pelvic CT 10/20/23 ABDOMINAL AORTA: The abdominal aorta is atherosclerotic and there is a fusiform infrarenal abdominal aortic aneurysm below the level the inferior mesenteric artery takeoff point, this exhibiting maximum diameter of 3.2 cm. The common iliac arteries are calcified and minimally prominent. Will need surveillance at the discretion of the PCP Subjective Subjective Interval history since last seen: Pt seen and examined in his room this am. POC d/w pt this am and with bedside nurse during MDR. Pt's case was also discussed with Dr. Rendon (Ortho) who will take the pt to the OR for debridement and washout. I did try to transfer the pt to [facility]/[place] without success. Dr Rendon asked for the pt to be NPO and I will place the order. 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 Neuro: Cranial nerves II through XII intact as tested General: Alert and oriented, can give a linear history. Objective Last Vital Signs Temp 35.5 C L 02/22/24 12:13 Pulse 69 02/22/24 12:13 Resp 16 02/22/24 12:13 BP 133/58 L 02/22/24 12:13 Pulse Ox 96 02/22/24 12:13 Laboratory Results - last 24 hr 02/22/24 05:45 WBC 13.95 H RBC 3.51 L Hgb 9.9 L Hct 30.9 L MCV 88 MCH 28.2 MCHC 32.0 RDW 14.9 H Plt Count 774 H* MPV 10.4 Immature Gran % 0.9 Neutrophils % 74.4 Lymphocytes % 12.5 Monocytes % 6.0 Eosinophils % 5.2 Basophils % 1.0 Nucleated RBC % 0.0 Absolute Neutrophils 10.38 H Absolute Lymphocytes 1.74 Absolute Monocytes 0.84 H Absolute Eosinophils 0.73 H Absolute Basophils 0.14 Sodium 137 Potassium 4.6 Chloride 104 Carbon Dioxide 25.8 Anion Gap 7.2 BUN 22 H Creatinine 1.2 Est GFR (CKD-EPI 2020) 63.85 Glucose 151 H Calcium 8.7 Total Bilirubin 0.26 AST 16 ALT 12 L Alkaline Phosphatase 63 Total Protein 6.3 L Albumin 2.0 L Random Vancomycin 23.1 Time Spent with Patient Time Spent with Patient: >50 minutes Time was spent: preparing to see the patient(eg.review tests), obtaining and/or reviewing separately otained hiistory, ordering medications,tests, procedures, referring, communicating with other health respiratory care practitioner, indepentently interpreting results, counseling the patient and care coordination
[2024-02-22] MEDS: VANCOMYCIN 1,500 MG in Normal Saline 250 ML 166.667 MG IVPB (15:13)
[2024-02-22 15:24] VITALS: BP 98/54; PULSE 68; RESP 15; TEMP 36.2; O2SAT 91
[2024-02-22 19:49] VITALS: BP 117/50; PULSE 64; RESP 15; TEMP 36.4; O2SAT 95
[2024-02-22] MEDS: Melatonin 3 MG TAB 9 MG PO (20:55)
[2024-02-22] MEDS: Gabapentin 300 MG CAP 1500 MG PO (20:55)
[2024-02-22] MEDS: Acetaminophen 325 MG TAB 650 MG PO (20:56)
[2024-02-22] MEDS: Rosuvastatin 20 MG TAB PO (20:56)
[2024-02-22] MEDS: Insulin Glargine 300 UNITS/3 ML PEN 48 UNITS SC (20:59)
[2024-02-23] VITALS (9 sets, daily range): BP systolic 101–117; BP diastolic 45–81; PULSE 55–73; RESP 12–20; TEMP 35.8–37.2; O2SAT 94–98; BMI 34.3
[2024-02-23] MEDS: CEFEPIME 2 GM in Normal Saline 100 ML IVPB ×3 (03:56→19:55)
[2024-02-23] MEDS: Normal Saline Flush 10 ML SYR IVP ×5 (03:57→20:20)
[2024-02-23] MEDS: oxyCODONE 15 MG TAB PO ×2 (03:57→20:15)
--- NOTE | 2024-02-23 07:10 | PGE_ITS ---
Date of Service Date of service: 02/23/24 Time of Service: 07:10 Assessment and Plan Assessment and plan (1) Acute osteomyelitis of metatarsal bone of right foot: Status: Acute Assessment and plan: Osteomyelitis based on MRI with exposed bone at forefoot wound. Will plan for transmetatarsal amputation at the level of the metatarsal neck with aggressive debridement of the surrounding area today in the operating room. (2) Diabetic infection of right foot: Status: Acute Assessment and plan: Complex infection about the right foot, likely due to pressure about the heel and potentially pushing off of the right forefoot given the recent stroke with any paresis of the left side. His diabetes is actually been in fairly good control but likely contributes to his ongoing symptoms with some of his baseline peripheral neuropathy and vasculopathy. Nevertheless, at this point he has ongoing infection which has not been responding to antibiotics alone. There are deep wounds about the forefoot and large wound on the lateral hindfoot. At this point I recommend we proceed with irrigation and debridement of the wounds along with likely transmetatarsal resection at the level the metatarsal neck of the third metatarsal and potentially the fourth metatarsal with bony debridement as indicated. I did also likely apply a wound VAC. Multiple attempts were made to transfer Mr. Galeano to a more appropriate tertiary care setting with multiple services available to assist with the care of this complex wound in the right foot in the setting of recent stroke and previous contralateral BKA. However, these were unsuccessful and declined by multiple hospitals. I was very honest with Mr. Galeano that our main game plan today is to debulk the infection and hopefully get back to a healthy appearing wound bed. I would plan for wound VAC treatment today prior to closing the forefoot wound. The hindfoot wound will not be able to be closed and will have to heal with secondary intention or will require plastic surgery intervention. He will likely still need antibiotics for an extended period of time but hopefully we will see improvements with his overall inflammatory markers as well as his leukocytosis. I reviewed the technical details of the surgery. I discussed risk to include continued infection, need for repeat procedures, worsening wound situation, blood clot. Despite these risk, he elects to proceed. He will remain nonweightbearing at all times on the right leg. The right foot and he will need to be suspended without any pressure on the lateral hindfoot or the forefoot. He is transfers only. I will also request wound care intervention as we move forward with these wounds and he may benefit from more specific wound treatment at other institutions or with various modalities such as hyperbaric. (3) Diabetic ulcer of right heel: Status: Acute Assessment and plan: See above (4) Bilateral femoral artery stenosis: Status: Acute Assessment and plan: I reviewed the results of the CT angiogram with Jason. He was quite disappointed to hear about the extensive vasculopathy throughout his arterial system with stenosis on the left leg as well as the right leg. However, he does have collateral flow. Vascular surgery at [facility] did not feel that there is any indication for vascular intervention. His FLORENTIN is encouraging. Nevertheless, this must be considered if there is any difficulty and continued wound healing or if secondary procedures are necessary such as plastic surgery. Subjective Subjective Interval history since last seen: No significant overall change from the previous visit. Jason continues to have open wound to the forefoot of the right foot with osteomyelitis of the head of the third metatarsal and a continued wound on the lateral side of the hindfoot without osteomyelitic changes on the MRI. Diligent effort was made to transfer Jason to a tertiary center given the complexity of his case, recent history of stroke, complex medical comorbidities with associated anesthetic and medical risk. However, he was not excepted in any other facility despite the noted vasculopathy seen on the CT angiogram and complexity with trying to heal this right wound with limited techniques and no plastic surgery, vascular surgery, infectious disease assistance. He has remained stable with a leukocytosis but no new chest pain or shortness of breath. Exam Narrative Exam Narrative: Sitting up in the bed. No acute distress. Alert and oriented x 3. Extrem Other: Right lower extremity dressing was not changed today with plan for OR. Objective Last Vital Signs Temp 36.2 C L 02/23/24 05:26 Pulse 60 02/23/24 05:26 Resp 14 02/23/24 05:26 BP 102/50 L 02/23/24 05:26 Pulse Ox 94 02/23/24 05:26 Time Spent with Patient Time Spent with Patient: 35-49 minutes Time was spent: preparing to see the patient(eg.review tests), obtaining and/or reviewing separately otained hiistory, referring, communicating with other health child daycare worker, indepentently interpreting results and counseling the patient
--- NOTE | 2024-02-23 08:03 | W.ANESPRE ---
General Info Date of Service Date Performed: 02/23/24 Height: 6 ft 1 in Weight: 118.026 kg Body Mass Index (BMI): 34.3 Surgical Procedure: Operation Date: 02/23/24 07:20 Proposed Procedure Side Surgeon p Debridement Portillo Rendon MD Actual Procedure Side Surgeon p Irrigation + Debridement of Foot, Wound Vac Placement Right Portillo Rendon MD Pre-Op Diagnosis Post-Op Diagnosis Diabetic infection of right foot Diabetic infection of right foot Meds Allergies and Home Medications Allergies Allergy/AdvReac Type Severity Reaction Status Date / Time levofloxacin Allergy Severe critical Verified 02/16/24 14:33 onion Allergy Severe raw onion Verified 02/16/24 14:33 Penicillins Allergy Severe Anaphylaxsi Verified 02/16/24 14:33 s Sulfa (Sulfonamide Allergy Severe Hives Verified 02/16/24 14:33 Antibiotics) sulfamethoxazole (From Allergy Severe Hives Verified 02/16/24 14:33 Bactrim) trimethoprim (From Bactrim) Allergy Severe Hives Verified 02/16/24 14:33 simvastatin AdvReac Severe faints Verified 02/16/24 14:33 Home Medication ?Medication ?Instructions ?Recorded aspirin 81 mg chewable tablet 81 mg PO DAILY 12/25/16 (Aspirin Low-Strength) oxycodone 15 mg tablet 15 mg PO Q6H PRN pain 03/29/17 cyanocobalamin (vitamin B-12) 1,000 mcg IJ .monthly 10/03/17 1,000 mcg/mL injection solution melatonin 3 mg tablet 10 mg PO HS PRN 11/10/17 lisinopril 2.5 mg tablet 2.5 mg PO DAILY 05/23/18 diphenhydramine 25 2 - 3 tab PO QHS PRN 08/20/19 mg-acetaminophen 500 mg tablet (Tylenol PM Extra Strength) pantoprazole 40 mg tablet,delayed 40 mg PO DAILY 01/06/20 release cholecalciferol (vitamin D3) 50 50 mcg PO DAILY 09/05/22 mcg (2,000 unit) capsule ezetimibe 10 mg tablet (Zetia) 10 mg PO DAILY 09/05/22 gabapentin 300 mg capsule See Rx Instructions PO BID 09/14/22 insulin aspart U-100 100 unit/mL 1 sliding scale dose subcut 09/14/22 subcutaneous cartridge (Novolog .before meals PenFill U-100 Insulin aspart) docusate sodium 100 mg capsule 100 mg PO DAILY PRN 02/04/23 (Colace) insulin degludec 200 unit/mL (3 60 unit subcut .nightly 10/22/23 mL) subcutaneous pen (Tresiba FlexTouch U-200 insulin) metformin 850 mg tablet 850 mg PO .nightly 10/22/23 dulaglutide 3 mg/0.5 mL 3 mg subcut .WEEKLY 10/23/23 subcutaneous pen injector (Trulicity) acetaminophen 325 mg tablet 650 mg (2 x 325 mg) PO Q6H PRN PRN 12/20/23 #0 tabs clopidogrel 75 mg tablet 75 mg PO DAILY #0 tabs 12/20/23 insulin aspart U-100 100 unit/mL 0 unit (0 mL) subcut 12/20/23 (3 mL) subcutaneous pen 0800,1200,1700 #0 mL insulin glargine 100 unit/mL (3 48 unit (0.48 mL) subcut DAILY #0 12/20/23 mL) subcutaneous pen (Lantus mL Solostar U-100 Insulin) rosuvastatin 20 mg tablet 20 mg PO QPM #0 tabs 12/20/23 lorazepam 0.5 mg tablet (Ativan) 0.5 mg PO DAILY PRN 60 mins pror 02/13/24 to MRI #1 tab Current Visit Medications: Current Medications Generic Name Dose Route Start Last Admin Trade Name Freq PRN Reason Stop Dose Admin Acetaminophen 650 mg 02/16/24 16:59 02/22/24 20:56 Acetaminophen 325 Mg Tab PO 650 mg Q6H PRN PRN Administration Aspirin 81 mg 02/17/24 08:30 02/22/24 08:45 Aspirin 81 Mg Chew PO 81 mg DAILY [facility] Administration Cholecalciferol 2,000 units 02/17/24 08:30 02/22/24 08:45 Cholecalciferol (Vitamin D3) 1,000 Unit Tab PO 2,000 units DAILY [facility] Administration Clopidogrel Bisulfate 75 mg 02/17/24 08:30 02/22/24 08:46 Clopidogrel 75 Mg Tab PO 75 mg DAILY [facility] Administration Dextrose 0 gm 02/16/24 17:02 Glucose Oral Gel 15 Gm/37.5 Gm Tube PO DIRECTED PRN Dextrose/Water 0 gm 02/16/24 17:02 Dextrose 50%-Water 25 Gm/50 Ml Syr IVP DIRECTED PRN Docusate Sodium 100 mg 02/19/24 20:00 02/22/24 20:56 Docusate Sodium 100 Mg Cap PO 100 mg BID [facility] Administration Ezetimibe 10 mg 02/17/24 08:30 02/22/24 08:45 Ezetimibe 10 Mg Tab PO 10 mg DAILY [facility] Administration Gabapentin 900 mg 02/17/24 08:30 02/22/24 08:46 Gabapentin 300 Mg Cap PO 900 mg DAILY [facility] Administration Gabapentin 1,500 mg 02/16/24 20:00 02/22/24 20:55 Gabapentin 300 Mg Cap PO 1,500 mg HS [facility] Administration Cefepime HCl 2 gm/ Sodium 100 mls @ 200 mls/hr 02/22/24 04:00 02/23/24 04:41 Chloride IVPB Infused Q8H [facility] Infusion Vancomycin HCl 1,500 mg/ 250 mls @ 166.667 mls/hr 02/22/24 14:00 02/22/24 19:35 Sodium Chloride IVPB Infused Q24H [facility] Infusion IV Miscellaneous Supplies 1 each 02/17/24 09:45 Iv Access IV DIRECTED [facility] Insulin Aspart 0 units 02/17/24 08:00 02/22/24 17:44 Insulin Aspart 300 Units/3 Ml Pen SC 2 units 0800,1200,1700 [facility] Administration Protocol Insulin Aspart 6 units 02/17/24 08:00 02/22/24 17:44 Insulin Aspart 300 Units/3 Ml Pen SC Not Given 0800,1200,1700 [facility] Insulin Glargine 48 units 02/18/24 20:00 02/22/24 20:59 Insulin Glargine 300 Units/3 Ml Pen SC 48 units HS [facility] Administration Lisinopril 2.5 mg 02/16/24 18:00 02/22/24 08:45 Lisinopril 2.5 Mg Tab PO 2.5 mg DAILY [facility] Administration Lorazepam 0.5 mg 02/16/24 16:59 02/21/24 21:11 Lorazepam 0.5 Mg Tab PO 0.5 mg DAILY PRN PRN Administration 60 mins pror to MRI Melatonin 9 mg 02/17/24 12:22 02/22/24 20:55 Melatonin 3 Mg Tab PO 9 mg HS PRN PRN Administration Nystatin 60 gm 02/17/24 14:00 02/22/24 20:57 Nystatin Powder 60 Gm Jar TP 1 applic TID [facility] Administration Nystatin 15 gm 02/17/24 20:00 02/22/24 20:57 Nystatin Oint 15 Gm Tube TP Not Given BID [facility] Oxycodone HCl 15 mg 02/16/24 16:59 02/23/24 03:57 Oxycodone 15 Mg Tab PO 15 mg Q6H PRN PRN Administration pain Pantoprazole Sodium 40 mg 02/18/24 07:30 02/22/24 08:46 Pantoprazole 40 Mg Tabcr PO 40 mg DAILY@0730 [facility] Administration Rosuvastatin Calcium 20 mg 02/16/24 20:00 02/22/24 20:56 Rosuvastatin 20 Mg Tab PO 20 mg QPM [facility] Administration Sodium Chloride 0 ml 02/16/24 14:48 Normal Saline 10 Ml Vial IJ DIRECTED PRN Sodium Chloride 0 ml 02/16/24 14:48 02/23/24 03:57 Normal Saline Flush 10 Ml Syr IVP 40 ml PRN PRN Administration Sodium Chloride 0 ml 02/16/24 20:00 02/22/24 20:57 Normal Saline Flush 10 Ml Syr IVP 10 ml BID [facility] Administration PFSH Active Problems Active Problems: Problem Status Onset Code Bilateral femoral artery stenosis Acute I70.203 Acute osteomyelitis of metatarsal bone of right foot Acute M86.171 Edema Acute R60.9 Advanced care planning/counseling discussion Acute Z71.89 Depression Chronic F32.A 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 of cerebrovascular accident Acute I69.354 Diabetic infection of right foot Acute E11.628, L08.9 Diabetic ulcer of right heel Acute E11.621, L97.419 Atherosclerosis of arteries Acute I70.90 Thrombocytosis Acute D75.839 Acute cerebrovascular accident (CVA) Acute I63.9 Type 2 diabetes mellitus Acute E11.9 Vitamin D deficiency Acute E55.9 Spinal stenosis Acute M48.00 Sleep apnea Acute Peripheral neuropathy Acute G62.9 Hyperlipidemia Acute E78.5 Hearing loss Acute H91.90 Current non-smoker but past smoking history unknown Acute Z78.9 Amputation of right foot Acute S98.911A Diabetic polyneuropathy Acute E11.42 Primary osteoarthritis of left shoulder Chronic M19.012 Tinnitus, bilateral Acute 05/16/17 H93.13 Sensorineural hearing loss (SNHL) of both ears Chronic 05/16/17 H90.3 Medical History Medical History (Updated 02/23/24 @ 07:20 by Portillo Rendon MD) Amputation of leg L - 2006 Former smoker Infrarenal abdominal aortic aneurysm (AAA) without rupture Biceps tendon rupture Hx of fall Change in bowel function Leg weakness Lightheadedness Rotator cuff tear arthropathy of right shoulder Rotator cuff tear arthropathy of left shoulder Impacted cerumen, right ear Infected sebaceous cyst of skin Weight gain Sebaceous cyst (~08/19/19) referral states Right anterior chest Rupture of right distal biceps tendon (~09/2018) Osteomyelitis Foot drop, right Diabetic foot ulcer Ulcer of foot Shoulder pain, left Calf pain Bronchitis Physical deconditioning Insomnia Skin irritation Abdominal pain DNR (do not resuscitate) Myalgia Balance problem B12 deficiency Dysphagia Partial tear of left rotator cuff Most recent injection: 06/30/19 S/P RTC repair by Dr. Jarrett September 2017 MRI from 02/2018 showed full-thickness re-tear supraspinatus and infraspinatus Cellulitis of right toe right 4th toe Impingement syndrome of left shoulder SURGERY 10/09/17 Other synovitis and tenosynovitis, left shoulder SURGERY 10/09/17 Complete rotator cuff tear of left shoulder SURGERY 10/09/17 Discharge planning issues DVT prophylaxis Amputated toe of right foot Acute appendicitis with localized peritonitis Hernia of anterior abdominal wall Surgical History Surgical History (Updated 02/23/24 @ 07:20 by Portillo Rendon MD) History of left below knee amputation S/P cholecystectomy open History of transmetatarsal amputation of right foot History of colonoscopy H/O esophagogastroduodenoscopy (~06/09/18) History of spinal surgery Status post rotator cuff surgery Rotator Cuff Repair Repair of inguinal hernia Appendectomy (06/11/16) Amputation left below knee amputation Tobacco Smoking/Tobacco Use Status: Former Tobacco Use Alcohol Alcohol Intake: former Substance Use Substance use: Never Substance use type: does not use Details: Pt states quit smoking 09/2017 Vital Signs and Lab Results Vital Signs Most Recent Vital Signs in EMR: Most Recent Vital Signs Temp Pulse Resp BP Pulse Ox 36.4 C L 66 18 117/55 L 96 02/23/24 07:37 02/23/24 07:37 02/23/24 07:37 02/23/24 07:37 02/23/24 07:37 Point of Care Results Point of Care Results: Finger Stick Blood Glucose 99 02/23/24 07:36 Lab Results 02/22/24 05:45 02/22/24 05:45 Blood Type / Crossmatch: No Data to Display Complete Blood Count: White Blood Count 13.95 10^3/uL (4.4-10.8) H 02/22/24 05:45 Red Blood Count 3.51 10^6/uL (4.36-5.78) L 02/22/24 05:45 Hemoglobin 9.9 g/dL (13.5-17.5) L 02/22/24 05:45 Hematocrit 30.9 % (40.0-50.0) L 02/22/24 05:45 Platelet Count 774 10^3/uL (130-400) H* 02/22/24 05:45 Complete Metabolic Panel: Sodium 137 mmol/L (136-145) 02/22/24 05:45 Potassium 4.6 mmol/L (3.5-5.1) 02/22/24 05:45 Chloride 104 mmol/L (98-107) 02/22/24 05:45 Carbon Dioxide 25.8 mmol/L (21.0-32.0) 02/22/24 05:45 BUN 22 mg/dL (7-18) H 02/22/24 05:45 Creatinine 1.2 mg/dL (0.70-1.30) 02/22/24 05:45 Est GFR (CKD-EPI 2020) 63.85 (mL/min/1.73m2) 02/22/24 05:45 Magnesium 1.8 mg/dL (1.8-2.4) 02/16/24 15:05 Calcium 8.7 mg/dL (8.5-10.1) 02/22/24 05:45 Albumin 2.0 g/dL (3.4-5.0) L 02/22/24 05:45 Glucose 151 mg/dL (74-106) H 02/22/24 05:45 C-Reactive Protein 6.47 mg/dL (<or=0.5) H 02/16/24 15:05 Liver Function Panel: Alanine Aminotransferase (ALT/SGPT) 12 U/L (16-63) L 02/22/24 05:45 Aspartate Amino Transf (AST/SGOT) 16 U/L (15-37) 02/22/24 05:45 Coagulation Panel: No Data to Display Cardiac Panel: NT-Pro-B Natriuret Pep 647 pg/mL (<300) H 02/18/24 Arterial Blood Gas: No Data to Display Venous Blood Gas: No Data to Display Pancreas Panel: No Data to Display Thyroid Panel: No Data to Display Infectious Disease: No Data to Display Blood Cultures: No Data to Display Toxicology Panel: No Data to Display Imaging and Studies Imaging and Studies Study information below may be from another EMR and interpreted by another provider. Please see original notes in EMR for more complete details. EKG Summary: 08/26/19 Sinus rhythm...normal P axis, V-rate 60- 99 Borderline prolonged TN interval...TN >212, V-rate 50- 90 Posterior infarct, old Echocardiogram Summary: Echocardiogram DATE OF SERVICE: September 09, 2013. ____ IN PATIENT __X__ OUT-PATIENT ORDERING PHYSICIAN: Lilli Packer MD. HEIGHT: 6 FT 2 IN WEIGHT: 252 LBS BSA: 2.4 m2 Blood pressure 130/76. STUDY INDICATIONS: Leg edema. FINDINGS: LEFT VENTRICLE/LVEF: LVEF 65%. Normal size. Mild concentric LVH. RIGHT VENTRICLE: Normal size and function. AORTIC VALVE: Trileaflet. No aortic stenosis or insufficiency. MITRAL VALVE: No mitral stenosis or insufficiency. TRICUSPID VALVE: Mild tricuspid insufficiency. RSV/PA/RIGHT ATRIAL PRESSURE: PULMONIC VALVE: Mild to moderate pulmonic insufficiency. No stenosis. ATRIA: Left atrium, right atrium within normal limits. DIASTOLIC INDICES: Pulmonic valve: E/A ratio less than 1. Deceleration time greater than 240 milliseconds. E-prime velocity approximately 8 cm per second. E/E prime ratio less than 15. GREAT VESSELS: The inferior vena cava is not visualized. The aortic root is mildly dilated at 4.1 cm. The ascending aorta is not measured. PERICARDIUM: No effusion. Rhythm: Sinus. SUMMARY: Conclusion: Normal biventricular size and systolic function. LVH. Diastolic indices appear abnormal and suggest stage I diastolic dysfunction. 1-2+ PI. Pulmonary pressure is not assessable. Atrial size within normal limits. No prior studies. Anesthesia Assessment and Plan Anesthesia History Personal History: No History of Anesthesia Complications Family History: No Family History of Anesthesia Complications Exercise Tolerance Exercise Tolerance: Metabolic Equivalents<4 Pertinent Negatives Pertinent Negatives: No Major Cardiovascular Symptoms or Complaints and No Major Pulmonary Symptoms or Complaints Cardiac & Pulmonary Exam Cardiac Exam: Normal S1/S2 Heart Sounds Pulmonary Exam: Clear Bilateral Breath Sounds Implantable Cardiac Device Does patient have a Pacemaker or an ICD?: No Airway Exam Known Difficult Airway: No Mallampati Class: 3 Mouth Opening: Normal (> 3cm) Thyromental Distance: Greater than 3 cm Neck Range of Motion: Full ROM Neck Circumference: Normal Teeth Condition: Generalized Poor Dentition (many missing, saw dentist recently, whats left is secure) ASA Classification ASA Score: ASA 3 Emergency Case?: Yes NPO Status NPO Status: NPO Clears >2 hours, Solids >8 hours Anesthesia Plan Resuscitation Status: DNR Fully Suspended During Perioperative Period Anesthesia Technique: General Anesthesia Airway Planned: Natural Airway Monitors Used: Standard Monitors Preoperative Comments:: CVA December 2023 with residual left hemiparesis, attempts to transfer to tertiary care unsuccessful, plan ankle block per surgeon and MAC/ GA without airway, keep BP and BS stable, limit fluids.
--- NOTE | 2024-02-23 08:22 | NUR.NOTE ---
Nursing Note: Patient tranferred off unit to OR. Report was given to Yarelis HARRELL.
[2024-02-23] MEDS: Lactated Ringers 1,000 ML 30 ML IV (08:33)
[2024-02-23] MEDS: Bupivacaine 0.25% Pres-Free 30 ML VIAL (09:08)
--- NOTE | 2024-02-23 09:48 | PT.INNT ---
PT Notes Visit Reasons: Diabetic foot wound, Osteomyelitis Pt was unavailable for PT rx today due to surgical procedure.
--- NOTE | 2024-02-23 10:06 | ROE_ITS ---
Operative Note Operative Note PRE-OP DIAGNOSIS: Right Diabetic and Pressure Foot Wounds, Right 3rd Metatarsal Osteomyelitis POST-OP DIAGNOSIS: same (New pressure wound to dorsum of foot) PROCEDURE: Irrigation and debridement of right forefoot wound as well as right hindfoot wound along with metatarsal head resection of the third and fourth metatarsals. Wound VAC application, right foot SURGEON: Portillo Rendon ANESTHESIA TYPE: General:No Airway Refer to Anesthesia Record ESTIMATED BLOOD LOSS: 5 PATHOLOGY: other (Swabs from the forefoot and hindfoot wound were sent to the lab for culture, bone sample from the third metatarsal head was also sent for culture) TOURNIQUET TIME: 0 COMPLICATIONS: None Patient was transported to: PACU Patient's condition: stable Indications: Mr. 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 During his recovery. He developed ulcerations and wounds about the right foot. He has been treated with antibiotics which have failed. He has full- thickness wounds about the hindfoot and the forefoot with confirmed osteomyelitis, and limited response from antibiotics. Therefore, I offered irrigation and debridement. Attempts at transfer to a multispecialty tertiary care were attempted but denied. I reviewed treatment options with him and recommended proceeding with initial irrigation debridement with a focus of removing the bacterial burden and establishing a healthy wound bed for continued wound healing. I discussed the risk of the procedure to include bleeding, continued infection, need for repeat procedures, pain, stiffness. Despite these risks, he elected to proceed. Findings: There is dense thickened skin overlying deep wounds of the forefoot and the hindfoot. The forefoot wound was directly in contact with the third metatarsal head and was in very close proximity to the fourth metatarsal head with only a very thin veil of tissue. A pocket of infection was adjacent to the second metatarsal head but did not seem to directly encounter it. Metatarsal head resections were performed of the third and fourth metatarsals and a wound VAC was applied. The hindfoot wound went through all of the skin and most of the fat of the hindfoot but did not penetrate the deep fascia without tendon or bone exposure. Wound measurements are below. Forefoot: 4cm (med-lat) x 3cm (dorsal-plantar) x 2cm (deep) Hindfoot: 6cm (post-ant) x 4cm (prox-dist) x 2mm (deep) Photos Prior to Procedure: Photos Prior To Vac Application: Procedure Description: Eloy was greeted upstairs prior to proceeding to surgery. In his room the surgery was reviewed the patient and a consent was obtained. He was taken down to the operating room where he was placed in the supine position on the operating room table. The right leg was supported and a bump was placed underneath the ipsilateral right hip. No prophylactic antibiotics are necessary given his regular scheduled antibiotics on the floor. The right lower extremity up to the distal leg was prepped with Betadine and then draped in a standard fashion. A timeout was performed for safe surgery. A field type ankle block was administered utilizing approximate 30 cc of 0.25% bupivacaine. This was done by starting posteriorly adjacent to the tibial nerve to also encompass branches of saphenous nerve. A wheal of anesthetic was then administered circumferentially around anteriorly for the deep peroneal and superficial peroneal nerves and then laterally for a branch of the superficial peroneal nerve and sural nerve. Once this was completed surgery was started. Starting with the distal forefoot wound the thickened skin was removed sharply including the skin edges. There was some bleeding tissue at the skin level. There is abundant amount of purulence seen directly behind this thickened skin tracking somewhat medially towards the second metatarsal and directly overlying the fourth metatarsal head. After removing the purulent material the third metatarsal head was easily identifiable. There was a small defect of the cartilage of the third metatarsal head over its lateral margin. However, the bone quality overall seem to still be quite good without terribly necrotic bone. Nevertheless, and removing the purulent and necrotic material the second metatarsal head was also identifiable through a very thin veil of fibrous tissue. The second metatarsal was well encapsulated with soft tissue and while the purulent material seem to track over to the second metatarsal head there was no significant tunneling and there is no exposure of the second metatarsal head. The third and fourth metatarsal heads were somewhat prominent within the wound given its slightly plantar oblique nature. Sharp dissection was carried out till there is no more necrotic material. A rongeur was also utilized to remove any necrotic or infectious material from the wound. Layers of epidermis were also peeled away from the skin edges. I then performed metatarsal head resections of the third and fourth metatarsals. This was done with an oscillating saw at a slightly chamfered position, dorsal?distal to plantar?proximal. A rasp and a rongeur was utilized to smooth the edges so there is no bony prominence. The final measurements of the wound were recorded as 4 cm in width from medial to lateral, 3 cm in height from dorsal to plantar, and 2 cm in depth. The wound was thoroughly irrigated with normal saline. Betadine soaked gauze was then placed into the wound. Attention was placed to the hindfoot wound. Once again sharp dissection was carried down to remove the and adherent necrotic tissue. This was more superficial than initially thought. It went through the skin and some the subcutaneous fat but there was a layer of fascia and deep tissue present that had good vascularity and seem to be adjacent to the calcaneus and peroneal tendons. However, there is no visible tendon or bone after resection of this tissue. Skin edges were also resected back until there is bleeding layers. The vascularity of this wound was quite robust except for a very small area at the distal aspect. There is no tunneling. I did make a penetrating opening into the deep layer adjacent to the calcaneus to ensure there is no deep abscess. There is no deep fluid or purulence encountered. Once again normal saline was utilized to irrigate the wound thoroughly. Sharp dissection along with a rongeur was utilized to remove any other areas of necrotic tissue. Final measurement of this wound showed to be 6 cm in length from posterior to anterior, 4 cm and height from proximal to distal, and only a few millimeters in depth. This wound was then irrigated with Betadine solution as well and allowed to sit on top of the wound. Both wounds were then once again irrigated. Secondary looks for made for any areas of necrosis or infection which were further debrided. Wound vacs were then applied. A white sponge was placed deep in the forefoot wound on top of the exposed metatarsal cut sections. A black sponge was placed on top of this and it was secured with the clear drape. On the hindfoot wound, only a black sponge was placed on top of the exposed deep dermis and deeper tissues. This was all secured with clear draping. An approximately 1 cm diameter hole was placed in each overlying the taylor sponge and tubing was applied to each wound. These were checked individually to make sure there was no leak. Once each was confirmed to have no leak the Y adapter was placed and the 2 wounds were connected by the Y doctor to the wound VAC at 120 mmHg of continuous suction. Mr. Galeano will remain nonweightbearing on the right leg. It is imperative that there is no pressure points. At the beginning of the case a new wound was identified over the dorsum of the foot, likely just from pressure of the Kerlex. He will need to be placed in pressure reducing foot brace. It is possible that the forefoot wound could be closed on second look after removing the wound VAC dressing. The hindfoot wound will need some additional wound VAC or wound dressings to induce closure and potentially secondary materials could utilize to help reconstitute skin over this area. There was the appearance of good vascularity and therefore I do think has a chance to heal on its own. I will reach out to wound care and podiatry for their assistance in management of these complex wounds. Date of Procedure: 02/23/24
--- NOTE | 2024-02-23 10:18 | W.ANESPOSTOP ---
Postoperative Evaluation Date, Time and Location Date Performed: 02/23/24 Time Performed: 10:18 Patient Location: Med/Surg Vital Signs Most Recent Imported Vital Signs: Most Recent Vital Signs Temp Pulse Resp BP Pulse Ox 35.8 C L 56 L 12 106/54 L 95 02/23/24 10:17 02/23/24 10:17 02/23/24 10:17 02/23/24 10:17 02/23/24 10:17 Pain Score Most Recent Pain Score: Most Recent Pain Score Pain Level 0 02/23/24 10:17 Assessment Mental Status: Awake (Alert & Oriented to Patient Baseline) Airway and Respiratory Function: Patent airway with normal (patient baseline) respiratory exam Cardiovascular Function: Hemodynamically Stable Hydration Status: Adequately Hydrated Nausea & Vomiting: No Nausea or Vomiting Pain: Pt. Denies Any Pain Peripheral Nerve Block: Patient did not receive a nerve block
[2024-02-23] MEDS: Aspirin 81 MG CHEW PO (11:07)
[2024-02-23] MEDS: Cholecalciferol (Vitamin D3) 1,000 UNIT TAB 2000 UNITS PO (11:07)
[2024-02-23] MEDS: Ezetimibe 10 MG TAB PO (11:07)
[2024-02-23] MEDS: Docusate Sodium 100 MG CAP PO ×2 (11:08→20:16)
[2024-02-23] MEDS: Clopidogrel 75 MG TAB PO (11:08)
[2024-02-23] MEDS: Gabapentin 300 MG CAP 900 MG PO (11:08)
[2024-02-23] MEDS: Nystatin POWDER 60 GM JAR TP ×2 (11:10→20:19)
[2024-02-23] MEDS: Nystatin OINT 15 GM TUBE TP (11:14)
--- NOTE | 2024-02-23 11:22 | W.PM.PROGNOT ---
Date of Service Date of service: 02/23/24 Time of Service: 11:22 Assessment and Plan Assessment and plan (1) Diabetic infection of right foot: Status: Acute Assessment and plan: -Patient presented due to worsening despite outpatient antibiotic therapy with increasing WBC count. -History of MRSA (in skin wound on chest). At risk for pseudomonas given DM wound on foot. -Has been on cefepime and vancomycin we will continue pending wound/surgical cultures -Ortho and podiatry were unavailable upon patient admission, was ultimately seen by orthopedic surgery on 02/22/2024 and taken to the OR on 02/23/2024 and is now postop day 0 from irrigation and debridement of the right forefoot, right hindfoot, and large tarsal head resection of third and fourth metatarsals (2) Type 2 diabetes mellitus: Status: Acute Assessment and plan: -A1c 6.1% in November, which represents overly aggressive control given his age and comorbities. 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 -He is done with 21 days of DAPT, but according to PCP he is still on DAPT related to his ongoing thrombocytosis pending hematology evaluation. -Will continue clopidogrel as well for now. -Hemeparesis and wounds, amputations affecting his ADLs. -He may need additional rehabilitation or addition help at home. He does not want to go back to [facility] (4) Depression: Status: Chronic Assessment and plan: -being treated with fluoxetine. Unfortantely this medication can affect his clopidogrel. -will change to sertraline, but wait until discharge as otherwise will get too much overlap in effect given fluoxetine's long half life. (5) DVT prophylaxis: Assessment and plan: -High risk, enoxaparin (6) Edema: Status: Acute Assessment and plan: -Exact etiology is unknown but I do have some concerns for CHF. Will check BNP and consider echo is one hasn't been done in the past. My guess is that he had an echo recently 2/2 CVA work up. -TTE without acute findings -albumin low at 2.0 (7) Thrombocytosis: Status: Acute Assessment and plan: -Pt continues to have elevations in his platelets. -Pt does have an appt with [facility] which is pending (8) Infrarenal abdominal aortic aneurysm (AAA) without rupture: Assessment and plan: -abd/pelvic CT 10/20/23 ABDOMINAL AORTA: The abdominal aorta is atherosclerotic and there is a fusiform infrarenal abdominal aortic aneurysm below the level the inferior mesenteric artery takeoff point, this exhibiting maximum diameter of 3.2 cm. The common iliac arteries are calcified and minimally prominent. Will need surveillance at the discretion of the PCP Subjective Subjective Interval history since last seen: Patient seen postoperatively states that he is feeling well. Discussed plan with presence of orthopedic surgeon Dr. Rendon who stated that wound VAC would stay in place on both for and hindfoot wound, but that forefoot wound could be closed with sutures in a few days. He also stated that he would discuss with wound care about potential wound assisted scaffolding placed for hind foot area, and that we would wait for wound and bone culture results to determine antibiotic choice and duration going forward. Exam Narrative Exam Narrative: Well-appearing older gentleman laying in bed in no acute distress, ANO x 4, heart regular rhythm, lungs clear to auscultation bilaterally, abdomen soft, nontender, nondistended, status post left AKA, right fore foot and hindfoot with wound VAC in place Objective Last Vital Signs Temp 98.2 F 02/23/24 11:16 Pulse 60 02/23/24 11:16 Resp 12 02/23/24 11:16 BP 105/50 L 02/23/24 11:16 Pulse Ox 95 02/23/24 11:16 Time Spent with Patient Time Spent with Patient: >50 minutes Time was spent: preparing to see the patient(eg.review tests), obtaining and/or reviewing separately otained hiistory, ordering medications,tests, procedures, referring, communicating with other health animal caretaker supervisor, indepentently interpreting results, counseling the patient and care coordination
[2024-02-23] MEDS: Insulin Aspart 300 UNITS/3 ML PEN 6 UNITS SC ×2 (12:11→17:24)
[2024-02-23 13:33] LABS: Vancomycin, Random 13.4 ug/mL
[2024-02-23] MEDS: VANCOMYCIN/WATER (PEG) 1 GM/200 ML BAG IVPB (14:54)
[2024-02-23] MEDS: Rosuvastatin 20 MG TAB PO (20:15)
[2024-02-23] MEDS: Acetaminophen 325 MG TAB 650 MG PO (20:15)
[2024-02-23] MEDS: Melatonin 3 MG TAB 9 MG PO (20:16)
[2024-02-23] MEDS: Insulin Glargine 300 UNITS/3 ML PEN 48 UNITS SC (20:16)
[2024-02-23] MEDS: Gabapentin 300 MG CAP 1500 MG PO (20:16)
[2024-02-23] MEDS: Lidocaine 2% Jelly 6 ML SYR TP (23:03)
[2024-02-24] MEDS: VANCOMYCIN/WATER (PEG) 1 GM/200 ML BAG IVPB (01:56)
[2024-02-24] MEDS: oxyCODONE 15 MG TAB PO ×2 (01:56→19:56)
[2024-02-24] MEDS: Acetaminophen 325 MG TAB 650 MG PO ×2 (01:56→20:45)
[2024-02-24 02:34] VITALS: BP 114/54; PULSE 65; RESP 18; TEMP 36.7; O2SAT 96
[2024-02-24] MEDS: CEFEPIME 2 GM in Normal Saline 100 ML IVPB ×3 (03:32→19:48)
[2024-02-24 06:45] LABS: HCT 32.4 % (40.0-50.0); HGB 10.1 g/dL (13.5-17.5); MCH 27.6 pg (27.0-33.0); MCHC 31.2 % (32.0-36.0); MCV 89 fL (80-95); RBC 3.66 10^6/uL (4.36-5.78); RDW 14.6 % (11.8-14.1); RDW-SD 47.7 fL; WBC 13.57 10^3/uL (4.4-10.8)
[2024-02-24 07:03] LABS: Platelet Count 812 10^3/uL (130-400)
[2024-02-24 07:11] LABS: ALT 15 U/L (16-63); AST 17 U/L (15-37); Alkaline Phosphatase 64 U/L (46-116); Anion Gap 3.9 mmol/L (3-11); BUN 21 mg/dL (7-18); Bilirubin, Total 0.21 mg/dL (0.2-1.0); C-Reactive Protein 2.49 mg/dL (<or=0.5); CO2 28.1 mmol/L (21.0-32.0); CREATININE 1.3 mg/dL (0.70-1.30); Calcium 8.7 mg/dL (8.5-10.1); Chloride 106 mmol/L (98-107); Estimated GFR 58.01 (mL/min/1.73m2); Glucose 108 mg/dL (74-106); Potassium 4.9 mmol/L (3.5-5.1); Sodium 138 mmol/L (136-145); Total Protein 6.5 g/dL (6.4-8.2)
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
[2024-02-24 08:08] VITALS: BP 139/56; PULSE 62; RESP 20; TEMP 36.5; O2SAT 97
[2024-02-24] MEDS: Cholecalciferol (Vitamin D3) 1,000 UNIT TAB 2000 UNITS PO (08:38)
[2024-02-24] MEDS: Lisinopril 2.5 MG TAB PO (08:38)
[2024-02-24] MEDS: Aspirin 81 MG CHEW PO (08:38)
[2024-02-24] MEDS: Docusate Sodium 100 MG CAP PO ×2 (08:38→19:56)
[2024-02-24] MEDS: Pantoprazole 40 MG TABCR PO (08:38)
[2024-02-24] MEDS: Gabapentin 300 MG CAP 900 MG PO (08:38)
[2024-02-24] MEDS: Clopidogrel 75 MG TAB PO (08:38)
[2024-02-24] MEDS: Ezetimibe 10 MG TAB PO (08:38)
[2024-02-24] MEDS: Normal Saline Flush 10 ML SYR IVP ×2 (08:39→19:50)
--- NOTE | 2024-02-24 08:46 | PDOC.CMPRO ---
Date of service: 02/24/24 Time of Service: 08:46 Care Management Progress Note Progress Note Text Progress Note Text: Eloy was sitting up in bed when CM met with him. Yesterday he went to the OR for an I&D of his foot wound. He reported that he will go to surgery again tomorrow for possibvle wound closure. He will likley need rat exterminator IV antibiotics and will remain at [facility] in swing bed status for that. While Eloy lives at home with his (who is away for at least 2 more weeks), he is non-weighbearing and cannot manage on his own at this time. The exact antibiotic regimen will be determined when the wound culture results are known. Eloy refused to work with PT today and, per staff, has not been participating in his care as actively as he might. Discharge Potential Discharge Needs: Other (possible SB-1) Anticipated Barriers to Discharge: None Identified Patient/Family Education Needs: Review discharge instructions, discuss Ask Me Three Transportation: Private vehicle Plan: Anticipate Eloy will be transitioned to SB-1 to complete his IV antibiotic therapy when medically stable. He will follow up with his surgeon and PCP and plan of care . CM will follow and continue to assess for discharge needs. Social Determinants of Health Screening Social Determinants of Health last assessed: 02/24/24 Will the Patient Participate in the Screening?: Yes Do you worry about having a steady place to live?: no Problems where you live: no known problems In the past 12 months, have you had to go without electric, gas, oil or water in your home?: no Have you or anyone in your house had to go without enough food to eat?: no Has lack of transportation kept you from medical appointments or from doing things needed for daily living?: no Has anyone in your life made you feel unsafe or unsupported?: no How hard is it for you to pay for the very basics like food, housing, medical care, and heating? Would you say it is:: Somewhat hard (concerned about medical bills; has [facility] financial assistance) Do you want help finding or keeping work or a job?: I do not need or want help If for any reason you need help with day-to-day activities such as bathing, preparing meals, shopping, managing finances, etc., do you get the help you need?: I get all the help I need (feels well supported at home) How often do you feel lonely or isolated from those around you?: Sometimes Do you speak a language other than Tongan at home?: No Does the patient want assistance with any of the above?: No Health Related Social Needs Health related social needs: problems related to housing/economic circumstances (Z59.89) and feeling lonely/isolated (Z60.8)
[2024-02-24] MEDS: Nystatin POWDER 60 GM JAR TP ×3 (08:47→19:48)
[2024-02-24] MEDS: Nystatin OINT 15 GM TUBE TP ×2 (08:47→19:47)
[2024-02-24] MEDS: Insulin Aspart 300 UNITS/3 ML PEN 6 UNITS SC ×3 (08:47→17:38)
--- NOTE | 2024-02-24 09:30 | PT.INTREAT ---
PT Notes Visit Reasons: Diabetic foot wound, Osteomyelitis Physical Therapy Inpatient Progress Note Date: 02/24/2024 Dates of Service: 02/17/2024 through 02/24/2024 Precautions: Fall. ON CONTACT PRECAUTIONS FOR MRSA. Residual L-sided hemiparesis. 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 L transtibial prosthesis and R spiral AFO (unable to don R spiral AFO at this time) in place when OOB. Post-op shoe on the R foot when OOB. NWB on the R LE per Dr. Rendon. L UE elevated on 2 pillows in extension. Patient Profile/Admitting Diagnosis: Patient is postop day 1 from irrigation and debridement of the right forefoot, right hindfoot, and large tarsal head resection of third and fourth metatarsals by Dr. Rendon. 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 Patient received acute CVA rehab in [place], [place] for 20 days since discharge from this hospital on and was then sent for continued subacute rehab in a SNF for another 20 days before finally going home last Saturday. He presented to the ED on 02/16/2024 due to worsening ulcer of his R foot. Subjective: Unwilling to progress PT unless he knows what is fully happening to his R foot. Agreeable to be moved in bed and to continuing bed level exercises in the meantime. Objective: General Observation: OLENA Rob assisting patient with morning care, PT offered to help with bed mobility. L hand swelling increased. L UE flexor synergy apparent. Mental Status: Alert and oriented as to person, place, time, and purpose. Able to pay attention, focus, and respond appropriately. Speech intelligible. Pain: None reported Vital Signs: Closely monitored by nursing staff ROM: Right Upper Extremity: Shoulder Flexion WFL. Shoulder abduction WFL. Elbow flexion WFL. Wrist flexion WFL. Functional opening and closing of hand WFL. Left Upper Extremity: Shoulder Flexion allows up to about 300 degrees only. Shoulder abduction allows up to about 20 degrees only. Elbow flexion WFL. Wrist flexion about 10 degrees. Functional opening and closing of hand impaired. Right Lower Extremity: Hip flexion WFL. Hip abduction WFL. Knee flexion 10 degrees to 110 degrees. Knee extension -10 degrees. Ankle dorsiflexion 0 degrees, patient with R foot drop. Ankle plantarflexion 10 degrees. Left Lower Extremity: Hip flexion lacks the last 25% of AROM. Hip abduction lacks the last 25% of AROM. Knee flexion 30 degrees to 80 degrees. Ankle dorsiflexion not applicable, patient with L TT prosthesis. Ankle plantarflexion not applicable, patient with L TT prosthesis Strength: Right Upper Extremity: Shoulder flexors 4/5. Shoulder abductors 4/5. Elbow flexors 5/5. Elbow extensors 5/5. Roll Shop Supervisor strong. Left Upper Extremity: Shoulder flexors 2-/5. Shoulder abductors 2-/5. Elbow flexors 3-/5. Elbow extensors 3-/5. Roll Shop Supervisor weak but functional. Right Lower Extremity: Hip flexors 4/5. Hip abductors 4/5. Knee flexors 3-/5. Knee extensors 3-/5. Ankle dorsiflexors 0/5. Ankle plantarflexors 3/5. Left Lower Extremity: Hip flexors 2-/5. Hip abductors 2-/5. Knee flexors 3-/5. Knee extensors 3-/5. Ankle dorsiflexors NT. Ankle plantarflexors NT. Bed Mobility/Transfers: Minimal cueing provided for use of B hands as needed for support, movement sequence, AD management, and posture to reduce fall risk and minimize pain report Roll to R moderate assist of 2 Roll to L moderate assist of 1 using L handrail Supine to sit moderate assist of 2 (pre I&D, patient refused to sit up today) Sit to stand moderate assist of 2 using both hands for support using STEDY lift (pre I&D, patient refused to sit up today) Stand to sit moderate assist of 2 using both hands for suppormoderate assist of 2 using both hands for support using STEDY lift (pre I&D, patient refused to sit up today) Gait: Unable to test Balance: Static Sitting: Fair Dynamic Sitting: Fair Static Standing: Unable to test Dynamic Standing: Unable to test Special Tests: Mobility Limitations Standardized Measure [facility]-PAC 6 clicks Basic Mobility Inpatient Short Form: Raw Score: 6 CMS Score: 100% deficit% Informed Consent/Education: Patient was instructed in purpose of PT consult and plan of care. Agreeable to proceed with established PT POC to achieve personal goals. ASSESSMENT: Patient is hesitant to progress mobility level until he is made aware of what is going to happen to his R foot. Patient was advised of the importance of continued strengthening as further decline will occur with doing otherwise. He was advised that strengthening progression can safely be done without aggravating R foot. He goes to surgery tomorrow for closure of R forefoot wound. Suhail continues to present with functional mobility decline resulting from admitting diagnoses above as well as functional impairments listed below. Co-morbidities include R-sided hemiparesis, 1-5 TMT amputation on the R, L TT amputation on the L, high BMI, pre-existing balance impairment, diabetes, and repeated falls. Patient requires acute [facility] rehab facility placement in order to optimize motor and neurologic recovery while increasing ability to return home safely. Patient presents with clinical signs and symptoms consistent with current/admitting diagnoses that have resulted to mobility limitations, gait instability, generalized weakness, and overall ADL decline as demonstrated by the following impairment level findings: 1. Decreased strength to B UE/LE major muscle groups, L side weaker than R 2. Impaired sitting/standing balance and tolerance 3. Impaired activity tolerance 4. Limitation of joint range of motion in L UE/LE joints 5. Shortness of breath 6. High BMI 7. Pre-existing Foot drop on R ankle 8. Transtibial amputation on L 9. 1-5 TMT amputation 10. 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 Swelling of L hand 12. Signs of depression observed affecting motivation to participate Impairments are contributing to the following functional limitations: 1. Decline in bed mobility skills 2. Decline in transfer skills 3. Unable to ambulate without assistive device and physical assistance, on NWB precaution on the R foot due to worsening ulcer 4. Increased completion time for mobility ADL performance 5. Increased risk for falls 6. Difficulty with managing steps alone safely Patient is assessed as a 47854 moderate complexity based on the following: History: 73 [id number] with past medical history as indicated above Examination: Demonstrable impairment in strength, balance, and mobility level with underlying impairments and functional limitations as exhibited above as well as deficit score of 47% utilizing the [facility] Mobility Inpatient Short Form Presentation: Evolving Decision Makin moderate complexity Goals: Goals X1 week 1. Supine-Sit independent 2. Sit-Supine independent 3. Sit-Stand minimal assist with FWW 4. Stand-Sit minimal assist with FWW 5. Bed-Chair minimal assist with FWW 6. Chair-Bed minimal assist with FWW 7. Minimal assist with FWW gait on level surface with use of FWW for at least 150 feet without report of pain nor dyspnea 8. Minimal assist with FWW stair negotiation while holding onto 1 rails for at least 12 steps without report of pain nor dyspnea 9. Good static and dynamic standing balance/tolerance Plan of Care/Treatment Plan: Patient will highly benefit from skilled physical therapy services including functional mobility training, bed mobility/transfer training, gait and balance training, therapeutic exercises, therapeutic activity, caregiver/staff/family education and training 1x/day, 7 days/week x 1 week. Initiate Physical Therapy intervention for strengthening, bed mobility, transfers, gait, stairs, balance training, use of assistive device. DISCHARGE RECOMMENDATIONS: [] Home with no services [] [] Home with services [specify] [] Home with outpatient PT [] [X] SNF for continued rehabilitation. Patient will benefit from fci facility placement for continued skilled physical therapy services in order to progress mobility level, strength, and balance in preparation for a safe discharge to home. [] [facility] Dist[employer] Operator Care [] [] SNF versus LTC based on ability to participate and progress [] TREATMENT CODE/TIME: 97442 x 32 minutes for 2 unit (9:30-10:02). Thank you for the opportunity to participate in the care of this patient. Arely Velazco PT, DPT, CLT [facility] [place], [place] Subjective: Agreeable to getting out of bed. Complained of soreness in R foot with minimal weight bearing during today's standing activity. Objective: General Observation: Dressing on R foot. Nurse Karen in room when PT came in. Mental Status: Alert and oriented as to person, place, time, and purpose. Able to pay attention, focus, and respond appropriately. Speech intelligible. Pain: Soreness reported on R planta area with minimal weight bearing Vital Signs: Closely monitored by nursing staff Bed Mobility/Transfers: (Patient performed this with LNAs Jackie and Brookelyn this morning) Minimal cueing provided for use of B hands as needed for support, movement sequence, AD management, and posture to reduce fall risk and minimize pain report Supine to sit moderate assist of 2 with HOB at 45 degrees Scoot forward to edge of bed minimal assist with R UE pulling on R belt tied at FOB Sit to stand minimal assist of 2 using both hands for support using STEDY lift Stand to sit minimal assist of 2 using both hands for support using STEDY lift Bed to bedside recliner minimal assist of 2 using both hands for support using STEDY lift Gait: Unable due to medical status Balance: Static Sitting: Fair Dynamic Sitting: Fair Static Standing: Poor Dynamic Standing: Unable THERA EX: Worked on increasing B UE strength and promotion of increased circulation to B LE with direct instruction/guidance on safe exercise performance while in supine: Unilateral diagonal chop exercises against red TB x 5 R Unilateral diagonal chop exercises against red TB x 5 L (active assistive) Bilateral UE chop exercise with assiatnce provided to ensure B hands are clasped x 10 R Deep breathing exercises x 5 Bilateral UE chop exercise with assistnce provided to ensure B hands are clasped x 10 L R [id number] exercise x 10 L [id number] exercise x 10 Deep breathing exercises x 5 Gluteal sets 5 sh x 10 Quadriceps sets 5 sh x 10 Gentle passive stretches to R ankle plantarflexors with use of padding to cushion plantar sore Sit<>stand from bedside recliner and edge of bed x 7 reps with about 30 seconds static standing while holding onto STEDY (with LNAs Jackie and Brookelyn) Partial sit ups from a reclined position to 90 degrees sitting x 5, PT supporting L hand placed on end of L chair arm rest ASSESSMENT: patient demosntrates incrasing tolreance to exercises Plan of Care/Treatment Plan: Patient will highly benefit from skilled physical therapy services including functional mobility training, bed mobility/transfer training, gait and balance training, therapeutic exercises, therapeutic activity, caregiver/staff/family education and training 1x/day, 7 days/week x 1 week. Initiate Physical Therapy intervention for strengthening, bed mobility, transfers, gait, stairs, balance training, use of assistive device. DISCHARGE RECOMMENDATIONS: [] Home with no services [] [] Home with services [specify] [] Home with outpatient PT [] [X] SNF for continued rehabilitation. Patient will benefit from fci facility placement for continued skilled physical therapy services in order to progress mobility level, strength, and balance in preparation for a safe discharge to home. [] [facility] Dist[employer] Operator Care [] [] SNF versus LTC based on ability to participate and progress [] TREATMENT CODE/TIME: 04259 x 38 minutes for 2 units (10:22-11:00).
[2024-02-24 11:20] LABS: Vancomycin, Random 17.7 ug/mL
[2024-02-24] MEDS: Normal Saline 100 ML 200 ML (11:36)
[2024-02-24] MEDS: Insulin Aspart 300 UNITS/3 ML PEN SC (12:06)
[2024-02-24 12:12] VITALS: BP 152/72; PULSE 67; RESP 20; TEMP 37.1; O2SAT 96
--- NOTE | 2024-02-24 12:43 | W.PM.PROGNOT ---
Date of Service Date of service: 02/24/24 Time of Service: 12:43 Assessment and Plan Assessment and plan (1) Diabetic infection of right foot: Status: Acute Assessment and plan: -Patient presented due to worsening despite outpatient antibiotic therapy with increasing WBC count. -History of MRSA (in skin wound on chest). At risk for pseudomonas given DM wound on foot. -Has been on cefepime and vancomycin we will continue pending wound/surgical cultures -Ortho and podiatry were unavailable upon patient admission, was ultimately seen by orthopedic surgery on 02/22/2024 and taken to the OR on 02/23/2024 and is now postop day 1 from irrigation and debridement of the right forefoot, right hindfoot, and large tarsal head resection of third and fourth metatarsals -plan to go back to the OR tomorrow 02/25/2024 for closure of the right forefoot wound (2) Type 2 diabetes mellitus: Status: Acute Assessment and plan: -A1c 6.1% in November, which represents overly aggressive control given his age and comorbities. 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 -He is done with 21 days of DAPT, but according to PCP he is still on DAPT related to his ongoing thrombocytosis pending hematology evaluation. -Will continue clopidogrel as well for now. -Hemeparesis and wounds, amputations affecting his ADLs. -He may need additional rehabilitation or addition help at home. He does not want to go back to [facility] (4) Depression: Status: Chronic Assessment and plan: -being treated with fluoxetine. Unfortantely this medication can affect his clopidogrel. -will change to sertraline, but wait until discharge as otherwise will get too much overlap in effect given fluoxetine's long half life. (5) DVT prophylaxis: Assessment and plan: -High risk, enoxaparin (6) Edema: Status: Acute Assessment and plan: -Exact etiology is unknown but I do have some concerns for CHF. Will check BNP and consider echo is one hasn't been done in the past. My guess is that he had an echo recently 2/2 CVA work up. -TTE without acute findings -albumin low at 2.0 (7) Thrombocytosis: Status: Acute Assessment and plan: -Pt continues to have elevations in his platelets. -Pt does have an appt with [facility] which is pending (8) Infrarenal abdominal aortic aneurysm (AAA) without rupture: Assessment and plan: -abd/pelvic CT 10/20/23 ABDOMINAL AORTA: The abdominal aorta is atherosclerotic and there is a fusiform infrarenal abdominal aortic aneurysm below the level the inferior mesenteric artery takeoff point, this exhibiting maximum diameter of 3.2 cm. The common iliac arteries are calcified and minimally prominent. Will need surveillance at the discretion of the PCP Subjective Subjective Interval history since last seen: Patient states that he is doing well after surgery and his pain is better controlled. He also understands after having a discussion with Dr. Rendon that he will go back to the OR tomorrow 02/25/2024 to close the right forefoot wound. Otherwise he has no liquids concerns at this time. Exam Narrative Exam Narrative: Well-appearing older gentleman laying in bed in no acute distress, ANO x 4, heart regular rhythm, lungs clear to auscultation bilaterally, abdomen soft, nontender, nondistended, status post left AKA, right fore foot and hindfoot with wound VAC in place Objective Last Vital Signs Temp 98.8 F 02/24/24 12:12 Pulse 67 02/24/24 12:12 Resp 20 02/24/24 12:12 BP 152/72 H 02/24/24 12:12 Pulse Ox 96 02/24/24 12:12 Laboratory Results - last 24 hr 02/23/24 02/24/24 02/24/24 12:49 05:35 06:00 WBC 13.57 H RBC 3.66 L Hgb 10.1 L Hct 32.4 L MCV 89 MCH 27.6 MCHC 31.2 L RDW 14.6 H Plt Count 812 H* MPV 10.0 Sodium 138 Potassium 4.9 Chloride 106 Carbon Dioxide 28.1 Anion Gap 3.9 BUN 21 H Creatinine 1.3 Est GFR (CKD-EPI 2020) 58.01 Glucose 108 H Calcium 8.7 Total Bilirubin 0.21 AST 17 ALT 15 L Alkaline Phosphatase 64 C-Reactive Protein 2.49 H Total Protein 6.5 Albumin 2.0 L Random Vancomycin 13.4 02/24/24 10:44 WBC RBC Hgb Hct MCV MCH MCHC RDW Plt Count MPV Sodium Potassium Chloride Carbon Dioxide Anion Gap BUN Creatinine Est GFR (CKD-EPI 2020) Glucose Calcium Total Bilirubin AST ALT Alkaline Phosphatase C-Reactive Protein Total Protein Albumin Random Vancomycin 17.7 Time Spent with Patient Time Spent with Patient: >50 minutes Time was spent: preparing to see the patient(eg.review tests), obtaining and/or reviewing separately otained hiistory, ordering medications,tests, procedures, referring, communicating with other health md do resident urgent care, indepentently interpreting results, counseling the patient and care coordination
[2024-02-24] MEDS: VANCOMYCIN/WATER (PEG) 1.75 GM/350 ML BAG IVPB (13:28)
[2024-02-24 15:40] VITALS: BP 148/69; PULSE 65; RESP 20; TEMP 37.3; O2SAT 95
--- NOTE | 2024-02-24 17:18 | W.PM.PROGNOT ---
Date of Service Date of service: 02/24/24 Time of Service: 12:30 Assessment and Plan Assessment and plan (1) Acute osteomyelitis of metatarsal bone of right foot: Status: Acute (2) Diabetic ulcer of right heel: Status: Acute (3) Diabetic infection of right foot: Status: Acute Assessment and plan: Jason reports to be doing well. The wound VAC is now working appropriately. His C-reactive protein has dropped down significantly. Initial wound cultures show both gram-positive and gram-negative annika. We will continue to follow these. Plan for dressing change tomorrow in the operating room, likely secondary closure of the forefoot wound with continued wound VAC placement about the heel. Will continue need IV antibiotics. Depending on the appearance of the lateral heel wound we will make a plan for likely transitioning to a nonvacuum-assisted dressing. Subjective Subjective Interval history since last seen: No acute concerns. No fevers no chills. I did have to change the hindfoot wound dressing yesterday but this has since done well without any leaks or concerns. Exam Narrative Exam Narrative: Resting in the hospital bed. No acute distress. Alert and orient x 3. Right lower extremity wound vac is in place. Dressings intact without concern and holding suction. Foot is resting within the pressure support boot. Objective Last Vital Signs Temp 37.3 C 02/24/24 15:40 Pulse 65 02/24/24 15:40 Resp 20 02/24/24 15:40 BP 148/69 H 02/24/24 15:40 Pulse Ox 95 02/24/24 15:40 Laboratory Results - last 24 hr 02/24/24 02/24/24 02/24/24 05:35 06:00 10:44 WBC 13.57 H RBC 3.66 L Hgb 10.1 L Hct 32.4 L MCV 89 MCH 27.6 MCHC 31.2 L RDW 14.6 H Plt Count 812 H* MPV 10.0 Sodium 138 Potassium 4.9 Chloride 106 Carbon Dioxide 28.1 Anion Gap 3.9 BUN 21 H Creatinine 1.3 Est GFR (CKD-EPI 2020) 58.01 Glucose 108 H Calcium 8.7 Total Bilirubin 0.21 AST 17 ALT 15 L Alkaline Phosphatase 64 C-Reactive Protein 2.49 H Total Protein 6.5 Albumin 2.0 L Random Vancomycin 17.7 Time Spent with Patient Time Spent with Patient: <25 minutes Time was spent: preparing to see the patient(eg.review tests), obtaining and/or reviewing separately otained hiistory and referring, communicating with other health adult day care worker
[2024-02-24] MEDS: metFORMIN 500 MG TAB PO (17:38)
[2024-02-24] MEDS: Gabapentin 300 MG CAP 1500 MG PO (19:55)
[2024-02-24] MEDS: Rosuvastatin 20 MG TAB PO (19:56)
[2024-02-24 20:10] VITALS: BP 126/52; PULSE 72; RESP 18; TEMP 37; O2SAT 95
[2024-02-24] MEDS: Insulin Glargine 300 UNITS/3 ML PEN 48 UNITS SC (20:44)
[2024-02-24] MEDS: Melatonin 3 MG TAB 9 MG PO (20:45)
[2024-02-24 23:19] VITALS: BP 99/50; PULSE 62; RESP 18; TEMP 36.7; O2SAT 95
[2024-02-25] MEDS: CEFEPIME 2 GM in Normal Saline 100 ML IVPB ×3 (04:12→20:16)
[2024-02-25 04:13] VITALS: BP 112/52; PULSE 62; RESP 14; TEMP 36.8; O2SAT 94
[2024-02-25] MEDS: oxyCODONE 15 MG TAB PO ×3 (04:23→17:23)
[2024-02-25 06:42] LABS: HCT 31.3 % (40.0-50.0); HGB 10.1 g/dL (13.5-17.5); MCH 28.2 pg (27.0-33.0); MCHC 32.3 % (32.0-36.0); MCV 87 fL (80-95); MPV 10.3 fL (8.0-11.0); RBC 3.58 10^6/uL (4.36-5.78); RDW 14.8 % (11.8-14.1); RDW-SD 47.3 fL; WBC 13.14 10^3/uL (4.4-10.8)
[2024-02-25 06:59] LABS: Anion Gap 4.4 mmol/L (3-11); BUN 23 mg/dL (7-18); CO2 28.6 mmol/L (21.0-32.0); CREATININE 1.2 mg/dL (0.70-1.30); Chloride 105 mmol/L (98-107); Estimated GFR 63.85 (mL/min/1.73m2); Glucose 154 mg/dL (74-106); Potassium 4.9 mmol/L (3.5-5.1); Sodium 138 mmol/L (136-145)
[2024-02-25 07:10] LABS: Platelet Count 893 10^3/uL (130-400)
--- NOTE | 2024-02-25 08:42 | CMPROGNOTE_ITS ---
Date of service: 02/25/24 Time of Service: 08:42 Care Management Progress Note Progress Note Text Progress Note Text: Eloy was sitting up in bed waiting to go to surgery when CM met with him. He indicated several times that he is anxious to have the procedure which he sees as a positive step in his recovery. He stated that he is a patient man but that this situation is challenging. Eloy is aware that he will likely need longer term IV antibiotics. He will remain at [facility] until the course is completed as he is non-weight bearing at this time and cannot manage at home alone. Discharge Potential Discharge Needs: PCP F/U Appt Anticipated Barriers to Discharge: None Identified Patient/Family Education Needs: Review discharge instructions, discuss Ask Me Three Transportation: Other (to be determined by disposition) Plan: Anticipate Eloy will be transitioned to SB-1 to complete his IV antibiotic therapy when medically stable. He will follow up with his surgeon and PCP and plan of care . CM will follow and continue to assess for discharge needs. Social Determinants of Health Screening Social Determinants of Health last assessed: 02/25/24 Will the Patient Participate in the Screening?: Yes Do you worry about having a steady place to live?: no Problems where you live: no known problems In the past 12 months, have you had to go without electric, gas, oil or water in your home?: no Have you or anyone in your house had to go without enough food to eat?: no Has lack of transportation kept you from medical appointments or from doing things needed for daily living?: no Has anyone in your life made you feel unsafe or unsupported?: no How hard is it for you to pay for the very basics like food, housing, medical care, and heating? Would you say it is:: Somewhat hard (concerned about medical bills; has [facility] financial assistance) Do you want help finding or keeping work or a job?: I do not need or want help If for any reason you need help with day-to-day activities such as bathing, preparing meals, shopping, managing finances, etc., do you get the help you need?: I get all the help I need (feels well supported at home) How often do you feel lonely or isolated from those around you?: Sometimes Do you speak a language other than Georgian at home?: No Does the patient want assistance with any of the above?: No Health Related Social Needs Health related social needs: problems related to housing/economic circumstances (Z59.89) and feeling lonely/isolated (Z60.8)
[2024-02-25 08:46] VITALS: BP 108/59; PULSE 66; RESP 18; TEMP 37.1; O2SAT 94
[2024-02-25] MEDS: Normal Saline Flush 10 ML SYR IVP ×3 (09:28→20:18)
[2024-02-25] MEDS: Ezetimibe 10 MG TAB PO (09:56)
[2024-02-25] MEDS: Cholecalciferol (Vitamin D3) 1,000 UNIT TAB 2000 UNITS PO (09:56)
[2024-02-25] MEDS: Pantoprazole 40 MG TABCR PO (09:57)
[2024-02-25] MEDS: Gabapentin 300 MG CAP 900 MG PO (09:57)
[2024-02-25] MEDS: Docusate Sodium 100 MG CAP PO ×2 (09:59→20:16)
[2024-02-25] MEDS: Lisinopril 2.5 MG TAB PO ×2 (09:59→10:39)
[2024-02-25] MEDS: Nystatin POWDER 60 GM JAR TP ×2 (10:40→20:16)
[2024-02-25] MEDS: Nystatin OINT 15 GM TUBE TP ×2 (10:40→20:16)
[2024-02-25 13:00] VITALS: BP 107/48; PULSE 55; RESP 15; TEMP 36.4; O2SAT 95
--- NOTE | 2024-02-25 13:30 | W.PM.PROGNOT ---
Date of Service Date of service: 02/25/24 Time of Service: 13:30 Assessment and Plan Assessment and plan (1) Diabetic infection of right foot: Status: Acute Assessment and plan: -Patient presented due to worsening despite outpatient antibiotic therapy with increasing WBC count. -History of MRSA (in skin wound on chest). At risk for pseudomonas given DM wound on foot. -Preliminary wound cultures growing staph species (not aureus), and yeast -Micro has been asked to speciate yeast, will discuss with infectious disease on recommendation for treatment regimen once additional information is available -Has been on cefepime and vancomycin we will continue pending wound/surgical cultures -Ortho and podiatry were unavailable upon patient admission, was ultimately seen by orthopedic surgery on 02/22/2024 and taken to the OR on 02/23/2024 and is now postop day 2 from irrigation and debridement of the right forefoot, right hindfoot, and large tarsal head resection of third and fourth metatarsals -patient is now POD #0 from wound closure of right forefoot wound (2) Type 2 diabetes mellitus: Status: Acute Assessment and plan: -A1c 6.1% in November, which represents overly aggressive control given his age and comorbities. 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 -He is done with 21 days of DAPT, but according to PCP he is still on DAPT related to his ongoing thrombocytosis pending hematology evaluation. -Will continue clopidogrel as well for now. -Hemeparesis and wounds, amputations affecting his ADLs. -He may need additional rehabilitation or addition help at home. He does not want to go back to [facility]. (4) Depression: Status: Chronic Assessment and plan: -being treated with fluoxetine. Unfortantely this medication can affect his clopidogrel. -will change to sertraline, but wait until discharge as otherwise will get too much overlap in effect given fluoxetine's long half life. (5) DVT prophylaxis: Assessment and plan: -High risk, enoxaparin (6) Edema: Status: Acute Assessment and plan: -Exact etiology is unknown but I do have some concerns for CHF. Will check BNP and consider echo is one hasn't been done in the past. My guess is that he had an echo recently 2/2 CVA work up. -TTE without acute findings -albumin low at 2.0 (7) Thrombocytosis: Status: Acute Assessment and plan: -Pt continues to have elevations in his platelets. -Pt does have an appt with [employer] which is pending (8) Infrarenal abdominal aortic aneurysm (AAA) without rupture: Assessment and plan: -abd/pelvic CT 10/20/23 ABDOMINAL AORTA: The abdominal aorta is atherosclerotic and there is a fusiform infrarenal abdominal aortic aneurysm below the level the inferior mesenteric artery takeoff point, this exhibiting maximum diameter of 3.2 cm. The common iliac arteries are calcified and minimally prominent. Will need surveillance at the discretion of the PCP Subjective Subjective Interval history since last seen: Patient seen later in the afternoon after surgery. He states he is feeling well, understands the plan to continue current therapy and wait for final culture results. Otherwise he has no other complaints or concerns at this time. Exam Narrative Exam Narrative: Well-appearing older gentleman laying in bed in no acute distress, ANO x 4, heart regular rhythm, lungs clear to auscultation bilaterally, abdomen soft, nontender, nondistended, status post left AKA, right fore foot and hindfoot with wound VAC in place Objective Last Vital Signs Temp 97.5 F L 02/25/24 13:00 Pulse 55 L 02/25/24 13:00 Resp 15 02/25/24 13:00 BP 107/48 L 02/25/24 13:00 Pulse Ox 95 02/25/24 13:00 Laboratory Results - last 24 hr 02/25/24 06:20 WBC 13.14 H RBC 3.58 L Hgb 10.1 L Hct 31.3 L MCV 87 MCH 28.2 MCHC 32.3 RDW 14.8 H Plt Count 893 H* MPV 10.3 Sodium 138 Potassium 4.9 Chloride 105 Carbon Dioxide 28.6 Anion Gap 4.4 BUN 23 H Creatinine 1.2 Est GFR (CKD-EPI 2020) 63.85 Glucose 154 H Calcium 9.0 Time Spent with Patient Time Spent with Patient: >50 minutes Time was spent: preparing to see the patient(eg.review tests), obtaining and/or reviewing separately otained hiistory, ordering medications,tests, procedures, referring, communicating with other health health and social care teacher, indepentently interpreting results, counseling the patient and care coordination
--- NOTE | 2024-02-25 14:06 | W.UROLOGYCON ---
Date of service: 02/25/24 Time of Service: 14:07 Assessment and Plan Assessment and plan (1) Mckeon catheter problem: Status: Acute Assessment and plan: For the time being, it does not sound as if any intervention is needed. If his catheter does begin leaking again, it would seem reasonable to give him a trial of a bladder relaxer type medication just while the catheter is in place. It may be that he is having bladder spasms that can be related to his recent stroke. If we do start him on a bladder relaxer, it might be better to use a beta 3 agonist compared to an anticholinergic given the side effect profile. Once he is able to at least sit at the bedside, he believes he will be able to manipulate the urinal well enough to void on his own. History of Present Illness History of Present Illness Chief Complaint: Mckeon catheter complication Narrative: This is a 73-year-old gentleman who is currently hospitalized with osteomyelitis of the right foot. He has a past history of a left-sided below-knee amputation from a traumatic injury. He has had multiple toes amputated due to diabetic injuries. His current osteomyelitis is being managed with debridements along with placement of wound VAC to the right foot. Just about 2 months ago, he had a cerebrovascular accident which has caused decreased dexterity especially on the left side. He normally is able to void into a urinal when he is able to sit up at the bedside or get to the restroom. Now that he is on bedrest, he is not able to manipulate the urinal successfully and a Mckeon catheter has been placed. At times, he has had leakage around the catheter in spite of the catheter being positioned in the bladder. The catheter has been changed at least twice with continued episodes of leakage. When I saw him this morning, he told me that the problem had been rectified. He told me that he was able to realign the catheter and drainage tube overnight and he has no problems with leakage around the catheter anymore. [facility] All Active Problems (Updated 02/27/24 @ 17:02 by Portillo Rendon MD) Pressure injury of right foot, stage 1 (Acute) Mckeon catheter problem (Acute) Bilateral femoral artery stenosis (Acute) Acute osteomyelitis of metatarsal bone of right foot (Acute) s/p 3rd and 4th MT Head Resection (02/23/24) Edema (Acute) Advanced care planning/counseling discussion (Acute) Depression (Chronic) 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 of cerebrovascular accident (Acute) Diabetic infection of right foot (Acute) Diabetic ulcer of right heel (Acute) Atherosclerosis of arteries (Acute) Thrombocytosis (Acute) Acute cerebrovascular accident (CVA) (Acute) Type 2 diabetes mellitus (Acute) Vitamin D deficiency (Acute) Spinal stenosis (Acute) Sleep apnea (Acute) Peripheral neuropathy (Acute) Hyperlipidemia (Acute) Hearing loss (Acute) Current non-smoker but past smoking history unknown (Acute) Amputation of right foot (Acute) Diabetic polyneuropathy (Acute) Primary osteoarthritis of left shoulder (Chronic) Tinnitus, bilateral (Acute 05/16/17) Sensorineural hearing loss (SNHL) of both ears (Chronic 05/16/17) Medical History (Updated 02/27/24 @ 17:02 by Portillo Rendon MD) Amputation of leg L - 2005 Former smoker Infrarenal abdominal aortic aneurysm (AAA) without rupture Biceps tendon rupture Hx of fall Change in bowel function Leg weakness Lightheadedness Rotator cuff tear arthropathy of right shoulder Rotator cuff tear arthropathy of left shoulder Impacted cerumen, right ear Infected sebaceous cyst of skin Weight gain Sebaceous cyst (~08/19/19) referral states Right anterior chest Rupture of right distal biceps tendon (~09/2018) Osteomyelitis Foot drop, right Diabetic foot ulcer Ulcer of foot Shoulder pain, left Calf pain Bronchitis Physical deconditioning Insomnia Skin irritation Abdominal pain DNR (do not resuscitate) Myalgia Balance problem B12 deficiency Dysphagia Partial tear of left rotator cuff Most recent injection: 06/30/19 S/P RTC repair by Dr. Jarrett September 2017 MRI from 02/2018 showed full-thickness re-tear supraspinatus and infraspinatus Cellulitis of right toe right 4th toe Impingement syndrome of left shoulder SURGERY 10/09/17 Other synovitis and tenosynovitis, left shoulder SURGERY 10/09/17 Complete rotator cuff tear of left shoulder SURGERY 10/09/17 Discharge planning issues DVT prophylaxis Amputated toe of right foot Acute appendicitis with localized peritonitis Hernia of anterior abdominal wall Surgical History (Updated 02/23/24 @ 07:20 by Portillo Rendon MD) S/P cholecystectomy open History of transmetatarsal amputation of right foot History of left below knee amputation History of colonoscopy H/O esophagogastroduodenoscopy (~06/09/18) History of spinal surgery Status post rotator cuff surgery Rotator Cuff Repair Repair of inguinal hernia Appendectomy (06/11/16) Amputation left below knee amputation Family History Mother CAD (coronary artery disease) Maternal Grandmother Diabetes Social History Smoking/Tobacco Use Status: Former Tobacco Use Quit Date: 02/18/17 Smoking risk assessment performed?: Yes Alcohol Intake: former Drug use: Never Substance use type: does not use Details: Pt states quit smoking 09/2017 Housing: house Current gender identity: male Do you feel safe at home: Yes Do you feel safe in your relationship?: Yes Additional Social history: Grew up outside of [place] in town in [place]. 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 Exam Narrative Exam Narrative: He is a very pleasant gentleman who is in no obvious distress He does not appear septic or toxic His vital signs are documented elsewhere There is a urethral catheter in place and is draining clear urine He is awake and alert Results Last Vital Signs Temp 36.4 C L 02/25/24 13:00 Pulse 55 L 02/25/24 13:00 Resp 15 02/25/24 13:00 BP 107/48 L 02/25/24 13:00 Pulse Ox 95 02/25/24 13:00 Labs 02/26/24 06:20 02/26/24 06:20 Labs: Laboratory Results - last 24 hr 02/25/24 06:20 WBC 13.14 H RBC 3.58 L Hgb 10.1 L Hct 31.3 L MCV 87 MCH 28.2 MCHC 32.3 RDW 14.8 H Plt Count 893 H* MPV 10.3 Sodium 138 Potassium 4.9 Chloride 105 Carbon Dioxide 28.6 Anion Gap 4.4 BUN 23 H Creatinine 1.2 Est GFR (CKD-EPI 2020) 63.85 Glucose 154 H Calcium 9.0 Imaging Imaging Studies: I reviewed his CT of the abdomen and pelvis from October [address] angiogram of the aorta. Neither study shows hydronephrosis.
--- NOTE | 2024-02-25 14:54 | ANES.PREOP_ITS ---
General Info Date of Service Date Performed: 02/25/24 Height: 6 ft 1 in Weight: 118.026 kg Body Mass Index (BMI): 34.3 Surgical Procedure: Operation Date: 02/23/24 07:20 Proposed Procedure Side Surgeon p Debridement Portillo Rendon MD Actual Procedure Side Surgeon p Irrigation + Debridement of Foot Wounds, 3rd + 4th Metatarsal Head Resection, Wound Vac Placement Right Portillo Rendon MD Pre-Op Diagnosis Post-Op Diagnosis Diabetic infection of right foot Diabetic infection of right foot Operation Date: 02/25/24 15:25 Proposed Procedure Side Surgeon p I&D of Foot, Wound Vac Placement Right Portillo Rendon MD Pre-Op Diagnosis Post-Op Diagnosis Diabetic foot wound, Osteomyelitis Meds Allergies and Home Medications Allergies Allergy/AdvReac Type Severity Reaction Status Date / Time levofloxacin Allergy Severe critical Verified 02/16/24 14:33 onion Allergy Severe raw onion Verified 02/16/24 14:33 Penicillins Allergy Severe Anaphylaxsi Verified 02/16/24 14:33 s Sulfa (Sulfonamide Allergy Severe Hives Verified 02/16/24 14:33 Antibiotics) sulfamethoxazole (From Allergy Severe Hives Verified 02/16/24 14:33 Bactrim) trimethoprim (From Bactrim) Allergy Severe Hives Verified 02/16/24 14:33 simvastatin AdvReac Severe faints Verified 02/16/24 14:33 Home Medication ?Medication ?Instructions ?Recorded aspirin 81 mg chewable tablet 81 mg PO DAILY 12/25/16 (Aspirin Low-Strength) oxycodone 15 mg tablet 15 mg PO Q6H PRN pain 03/29/17 cyanocobalamin (vitamin B-12) 1,000 mcg IJ .monthly 10/03/17 1,000 mcg/mL injection solution melatonin 3 mg tablet 10 mg PO HS PRN 11/10/17 lisinopril 2.5 mg tablet 2.5 mg PO DAILY 05/23/18 diphenhydramine 25 2 - 3 tab PO QHS PRN 08/20/19 mg-acetaminophen 500 mg tablet (Tylenol PM Extra Strength) pantoprazole 40 mg tablet,delayed 40 mg PO DAILY 01/06/20 release cholecalciferol (vitamin D3) 50 50 mcg PO DAILY 09/05/22 mcg (2,000 unit) capsule ezetimibe 10 mg tablet (Zetia) 10 mg PO DAILY 09/05/22 gabapentin 300 mg capsule See Rx Instructions PO BID 09/14/22 insulin aspart U-100 100 unit/mL 1 sliding scale dose subcut 09/14/22 subcutaneous cartridge (Novolog .before meals PenFill U-100 Insulin aspart) docusate sodium 100 mg capsule 100 mg PO DAILY PRN 02/04/23 (Colace) insulin degludec 200 unit/mL (3 60 unit subcut .nightly 10/22/23 mL) subcutaneous pen (Tresiba FlexTouch U-200 insulin) metformin 850 mg tablet 850 mg PO .nightly 10/22/23 dulaglutide 3 mg/0.5 mL 3 mg subcut .WEEKLY 10/23/23 subcutaneous pen injector (Trulicity) acetaminophen 325 mg tablet 650 mg (2 x 325 mg) PO Q6H PRN PRN 12/20/23 #0 tabs clopidogrel 75 mg tablet 75 mg PO DAILY #0 tabs 12/20/23 insulin aspart U-100 100 unit/mL 0 unit (0 mL) subcut 12/20/23 (3 mL) subcutaneous pen 0800,1200,1700 #0 mL insulin glargine 100 unit/mL (3 48 unit (0.48 mL) subcut DAILY #0 12/20/23 mL) subcutaneous pen (Lantus mL Solostar U-100 Insulin) rosuvastatin 20 mg tablet 20 mg PO QPM #0 tabs 12/20/23 lorazepam 0.5 mg tablet (Ativan) 0.5 mg PO DAILY PRN 60 mins pror 02/13/24 to MRI #1 tab Current Visit Medications: Current Medications Generic Name Dose Route Start Last Admin Trade Name Freq PRN Reason Stop Dose Admin Acetaminophen 650 mg 02/16/24 16:59 02/24/24 20:45 Acetaminophen 325 Mg Tab PO 650 mg Q6H PRN PRN Administration Aspirin 81 mg 02/17/24 08:30 02/25/24 09:41 Aspirin 81 Mg Chew PO Not Given DAILY [facility] Cholecalciferol 2,000 units 02/17/24 08:30 02/25/24 09:56 Cholecalciferol (Vitamin D3) 1,000 Unit Tab PO 2,000 units DAILY [facility] Administration Clopidogrel Bisulfate 75 mg 02/17/24 08:30 02/25/24 09:40 Clopidogrel 75 Mg Tab PO Not Given DAILY [facility] Dextrose 0 gm 02/16/24 17:02 Glucose Oral Gel 15 Gm/37.5 Gm Tube PO DIRECTED PRN Dextrose/Water 0 gm 02/16/24 17:02 Dextrose 50%-Water 25 Gm/50 Ml Syr IVP DIRECTED PRN Docusate Sodium 100 mg 02/19/24 20:00 02/25/24 09:59 Docusate Sodium 100 Mg Cap PO 100 mg BID [facility] Administration Ezetimibe 10 mg 02/17/24 08:30 02/25/24 09:56 Ezetimibe 10 Mg Tab PO 10 mg DAILY [facility] Administration Gabapentin 900 mg 02/17/24 08:30 02/25/24 09:57 Gabapentin 300 Mg Cap PO 900 mg DAILY [facility] Administration Gabapentin 1,500 mg 02/16/24 20:00 02/24/24 19:55 Gabapentin 300 Mg Cap PO 1,500 mg HS [facility] Administration Cefepime HCl 2 gm/ Sodium 100 mls @ 200 mls/hr 02/22/24 04:00 02/25/24 13:12 Chloride IVPB Infused Q8H [facility] Infusion Vancomycin/PEG/NADA/Lysine/Water 1.75 gm in 350 mls @ 175 mls/hr 02/24/24 14:00 02/24/24 15:32 Vancocin Injection IVPB Infused Q24H [facility] Infusion IV Miscellaneous Supplies 1 each 02/17/24 09:45 Iv Access IV DIRECTED [facility] Insulin Aspart 0 units 02/17/24 08:00 02/25/24 12:31 Insulin Aspart 300 Units/3 Ml Pen SC Not Given 0800,1200,1700 [facility] Protocol Insulin Aspart 6 units 02/17/24 08:00 02/25/24 12:31 Insulin Aspart 300 Units/3 Ml Pen SC Not Given 0800,1200,1700 [facility] Insulin Glargine 48 units 02/18/24 20:00 02/24/24 20:44 Insulin Glargine 300 Units/3 Ml Pen SC 48 units HS [facility] Administration Lidocaine HCl 6 ml 02/23/24 22:26 02/23/24 23:03 Lidocaine 2% Jelly 6 Ml Syr TP 6 ml DIRECTED PRN Administration Catheter discomfort Lisinopril 2.5 mg 02/16/24 18:00 02/25/24 09:59 Lisinopril 2.5 Mg Tab PO 2.5 mg DAILY [facility] Administration Lorazepam 0.5 mg 02/16/24 16:59 02/21/24 21:11 Lorazepam 0.5 Mg Tab PO 0.5 mg DAILY PRN PRN Administration 60 mins pror to MRI Melatonin 9 mg 02/17/24 12:22 02/24/24 20:45 Melatonin 3 Mg Tab PO 9 mg HS PRN PRN Administration Metformin HCl 500 mg 02/24/24 17:00 02/24/24 17:38 Metformin 500 Mg Tab PO 500 mg DAILY@1700 [facility] Administration Nystatin 60 gm 02/17/24 14:00 02/25/24 10:40 Nystatin Powder 60 Gm Jar TP 1 applic TID [facility] Administration Nystatin 15 gm 02/17/24 20:00 02/25/24 10:40 Nystatin Oint 15 Gm Tube TP 1 applic BID [facility] Administration Oxycodone HCl 15 - 30 mg 02/24/24 07:39 02/25/24 09:59 Oxycodone 15 Mg Tab PO 15 mg Q3H PRN PRN Administration pain Pantoprazole Sodium 40 mg 02/18/24 07:30 02/25/24 09:57 Pantoprazole 40 Mg Tabcr PO 40 mg DAILY@0730 [facility] Administration Rosuvastatin Calcium 20 mg 02/16/24 20:00 02/24/24 19:56 Rosuvastatin 20 Mg Tab PO 20 mg QPM [facility] Administration Sodium Chloride 0 ml 02/16/24 14:48 Normal Saline 10 Ml Vial IJ DIRECTED PRN Sodium Chloride 0 ml 02/16/24 14:48 02/25/24 09:29 Normal Saline Flush 10 Ml Syr IVP 20 ml PRN PRN Administration Sodium Chloride 0 ml 02/16/24 20:00 02/25/24 09:28 Normal Saline Flush 10 Ml Syr IVP 20 ml BID [facility] Administration PFSH Active Problems Active Problems: Problem Status Onset Code Mckeon catheter problem Acute T83.9XXA Bilateral femoral artery stenosis Acute I70.203 Acute osteomyelitis of metatarsal bone of right foot Acute M86.171 Edema Acute R60.9 Advanced care planning/counseling discussion Acute Z71.89 Depression Chronic F32.A 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 of cerebrovascular accident Acute I69.354 Diabetic infection of right foot Acute E11.628, L08.9 Diabetic ulcer of right heel Acute E11.621, L97.419 Atherosclerosis of arteries Acute I70.90 Thrombocytosis Acute D75.839 Acute cerebrovascular accident (CVA) Acute I63.9 Type 2 diabetes mellitus Acute E11.9 Vitamin D deficiency Acute E55.9 Spinal stenosis Acute M48.00 Sleep apnea Acute Peripheral neuropathy Acute G62.9 Hyperlipidemia Acute E78.5 Hearing loss Acute H91.90 Current non-smoker but past smoking history unknown Acute Z78.9 Amputation of right foot Acute S98.911A Diabetic polyneuropathy Acute E11.42 Primary osteoarthritis of left shoulder Chronic M19.012 Tinnitus, bilateral Acute 05/16/17 H93.13 Sensorineural hearing loss (SNHL) of both ears Chronic 05/16/17 H90.3 Medical History Medical History (Updated 02/25/24 @ 14:17 by Klaus Beltran MD) Amputation of leg L - 2006 Former smoker Infrarenal abdominal aortic aneurysm (AAA) without rupture Biceps tendon rupture Hx of fall Change in bowel function Leg weakness Lightheadedness Rotator cuff tear arthropathy of right shoulder Rotator cuff tear arthropathy of left shoulder Impacted cerumen, right ear Infected sebaceous cyst of skin Weight gain Sebaceous cyst (~08/19/19) referral states Right anterior chest Rupture of right distal biceps tendon (~09/2018) Osteomyelitis Foot drop, right Diabetic foot ulcer Ulcer of foot Shoulder pain, left Calf pain Bronchitis Physical deconditioning Insomnia Skin irritation Abdominal pain DNR (do not resuscitate) Myalgia Balance problem B12 deficiency Dysphagia Partial tear of left rotator cuff Most recent injection: 06/30/19 S/P RTC repair by Dr. Jarrett September 2017 MRI from 02/2018 showed full-thickness re-tear supraspinatus and infraspinatus Cellulitis of right toe right 4th toe Impingement syndrome of left shoulder SURGERY 10/09/17 Other synovitis and tenosynovitis, left shoulder SURGERY 10/09/17 Complete rotator cuff tear of left shoulder SURGERY 10/09/17 Discharge planning issues DVT prophylaxis Amputated toe of right foot Acute appendicitis with localized peritonitis Hernia of anterior abdominal wall Surgical History Surgical History (Updated 02/23/24 @ 07:20 by Portillo Rendon MD) History of left below knee amputation S/P cholecystectomy open History of transmetatarsal amputation of right foot History of colonoscopy H/O esophagogastroduodenoscopy (~06/09/18) History of spinal surgery Status post rotator cuff surgery Rotator Cuff Repair Repair of inguinal hernia Appendectomy (06/11/16) Amputation left below knee amputation Tobacco Smoking/Tobacco Use Status: Former Tobacco Use Alcohol Alcohol Intake: former Substance Use Substance use: Never Substance use type: does not use Details: Pt states quit smoking 09/2017 Vital Signs and Lab Results Vital Signs Most Recent Vital Signs in EMR: Most Recent Vital Signs Temp Pulse Resp BP Pulse Ox 36.4 C L 55 L 15 107/48 L 95 02/25/24 13:00 02/25/24 13:00 02/25/24 13:00 02/25/24 13:00 02/25/24 13:00 Point of Care Results Point of Care Results: Finger Stick Blood Glucose 99 02/25/24 12:19 Lab Results 02/25/24 06:20 02/25/24 06:20 Blood Type / Crossmatch: 2 No Data to Display Complete Blood Count: 2 White Blood Count 13.14 10^3/uL (4.4-10.8) H 02/25/24 06:20 Red Blood Count 3.58 10^6/uL (4.36-5.78) L 02/25/24 06:20 Hemoglobin 10.1 g/dL (13.5-17.5) L 02/25/24 06:20 Hematocrit 31.3 % (40.0-50.0) L 02/25/24 06:20 Platelet Count 893 10^3/uL (130-400) H* 02/25/24 06:20 Complete Metabolic Panel: 2 Sodium 138 mmol/L (136-145) 02/25/24 06:20 Potassium 4.9 mmol/L (3.5-5.1) 02/25/24 06:20 Chloride 105 mmol/L (98-107) 02/25/24 06:20 Carbon Dioxide 28.6 mmol/L (21.0-32.0) 02/25/24 06:20 BUN 23 mg/dL (7-18) H 02/25/24 06:20 Creatinine 1.2 mg/dL (0.70-1.30) 02/25/24 06:20 Est GFR (CKD-EPI 2020) 63.85 (mL/min/1.73m2) 02/25/24 06:20 Magnesium 1.8 mg/dL (1.8-2.4) 02/16/24 15:05 Calcium 9.0 mg/dL (8.5-10.1) 02/25/24 06:20 Albumin 2.0 g/dL (3.4-5.0) L 02/24/24 06:00 Glucose 154 mg/dL (74-106) H 02/25/24 06:20 C-Reactive Protein 2.49 mg/dL (<or=0.5) H 02/24/24 06:00 Liver Function Panel: 2 Alanine Aminotransferase (ALT/SGPT) 15 U/L (16-63) L 02/24/24 0 6:00 Aspartate Amino Transf (AST/SGOT) 17 U/L (15-37) 02/24/24 06:00 Coagulation Panel: 2 No Data to Display Cardiac Panel: 2 NT-Pro-B Natriuret Pep 647 pg/mL (<300) H 02/18/24 Arterial Blood Gas: 2 No Data to Display Venous Blood Gas: 2 No Data to Display Pancreas Panel: 2 No Data to Display Thyroid Panel: 2 No Data to Display Infectious Disease: 2 No Data to Display Blood Cultures: 2 No Data to Display Toxicology Panel: 2 No Data to Display Imaging and Studies Imaging and Studies Study information below may be from another EMR and interpreted by another provider. Please see original notes in EMR for more complete details. EKG Summary: 08/26/19 Sinus rhythm...normal P axis, V-rate 60- 99 Borderline prolonged NH interval...NH >212, V-rate 50- 90 Posterior infarct, old Echocardiogram Summary: Echocardiogram DATE OF SERVICE: September 09, 2013. ____ IN PATIENT __X__ OUT-PATIENT ORDERING PHYSICIAN: Lilli Packer MD. HEIGHT: 6 FT 2 IN WEIGHT: 252 LBS BSA: 2.4 m2 Blood pressure 130/76. STUDY INDICATIONS: Leg edema. FINDINGS: LEFT VENTRICLE/LVEF: LVEF 65%. Normal size. Mild concentric LVH. RIGHT VENTRICLE: Normal size and function. AORTIC VALVE: Trileaflet. No aortic stenosis or insufficiency. MITRAL VALVE: No mitral stenosis or insufficiency. TRICUSPID VALVE: Mild tricuspid insufficiency. RSV/PA/RIGHT ATRIAL PRESSURE: PULMONIC VALVE: Mild to moderate pulmonic insufficiency. No stenosis. ATRIA: Left atrium, right atrium within normal limits. DIASTOLIC INDICES: Pulmonic valve: E/A ratio less than 1. Deceleration time greater than 240 milliseconds. E-prime velocity approximately 8 cm per second. E/E prime ratio less than 15. GREAT VESSELS: The inferior vena cava is not visualized. The aortic root is mildly dilated at 4.1 cm. The ascending aorta is not measured. PERICARDIUM: No effusion. Rhythm: Sinus. SUMMARY: Conclusion: Normal biventricular size and systolic function. LVH. Diastolic indices appear abnormal and suggest stage I diastolic dysfunction. 1- 2+ PI. Pulmonary pressure is not assessable. Atrial size within normal limits. No prior studies. Anesthesia Assessment and Plan Anesthesia History Personal History: No History of Anesthesia Complications Family History: No Family History of Anesthesia Complications Exercise Tolerance Exercise Tolerance: Metabolic Equivalents<4 Pertinent Negatives Pertinent Negatives: No Symptoms of GERD Cardiac & Pulmonary Exam Cardiac Exam: Normal S1/S2 Heart Sounds Pulmonary Exam: Clear Bilateral Breath Sounds Implantable Cardiac Device Does patient have a Pacemaker or an ICD?: No Airway Exam Known Difficult Airway: No Mallampati Class: 3 Mouth Opening: Normal (> 3cm) Thyromental Distance: Greater than 3 cm Neck Range of Motion: Full ROM Neck Circumference: Normal Teeth Condition: Generalized Poor Dentition (many missing, saw dentist recently, whats left is secure) ASA Classification ASA Score: ASA 3 Emergency Case?: No NPO Status NPO Status: NPO Clears >2 hours, Solids >8 hours Anesthesia Plan Resuscitation Status: Full Code Anesthesia Technique: MAC Anesthesia Airway Planned: Natural Airway Monitors Used: Standard Monitors
[2024-02-25 14:55] VITALS: BMI 34.3
[2024-02-25] MEDS: Normal Saline 500 ML 30 ML IV (15:06)
--- NOTE | 2024-02-25 16:00 | W.PM.PROGNOT ---
Date of Service Date of service: 02/25/24 Time of Service: 14:55 Assessment and Plan Assessment and plan (1) Acute osteomyelitis of metatarsal bone of right foot: Status: Acute (2) Diabetic infection of right foot: Status: Acute (3) Diabetic ulcer of right heel: Status: Acute Assessment and plan: Plan for return to the operating room today for second look and debridement. Will likely close the forefoot wound and continue with the wound VAC for the heel. I reviewed the details of the surgery with him once again. I discussed risk to include continued infection, need for repeat procedures, pain. Despite this, he elects to proceed. Subjective Subjective Interval history since last seen: No acute issues today. He has been NPO. Wound VAC has been functioning properly. Exam Narrative Exam Narrative: Sitting up in the hospital bed. No acute distress. Wound VAC is holding suction at 120 mmHg. Objective Last Vital Signs Temp 36.4 C L 02/25/24 13:00 Pulse 55 L 02/25/24 13:00 Resp 15 02/25/24 13:00 BP 107/48 L 02/25/24 13:00 Pulse Ox 95 02/25/24 13:00 Laboratory Results - last 24 hr 02/25/24 06:20 WBC 13.14 H RBC 3.58 L Hgb 10.1 L Hct 31.3 L MCV 87 MCH 28.2 MCHC 32.3 RDW 14.8 H Plt Count 893 H* MPV 10.3 Sodium 138 Potassium 4.9 Chloride 105 Carbon Dioxide 28.6 Anion Gap 4.4 BUN 23 H Creatinine 1.2 Est GFR (CKD-EPI 2020) 63.85 Glucose 154 H Calcium 9.0 Time Spent with Patient Time Spent with Patient: <25 minutes Time was spent: preparing to see the patient(eg.review tests), obtaining and/or reviewing separately otained hiistory and counseling the patient
--- NOTE | 2024-02-25 16:14 | W.ANESPOSTOP ---
Postoperative Evaluation Date, Time and Location Date Performed: 02/25/24 Time Performed: 16:15 Patient Location: Med/Surg Vital Signs Most Recent Imported Vital Signs: Most Recent Vital Signs Temp Pulse Resp BP Pulse Ox 36.4 C L 55 L 15 107/48 L 95 02/25/24 13:00 02/25/24 13:00 02/25/24 13:00 02/25/24 13:00 02/25/24 13:00 Most Recent Vital Signs Temp Pulse Resp BP Pulse Ox 35.8 C L 56 L 12 106/54 L 95 02/23/24 10:17 02/23/24 10:17 02/23/24 10:17 02/23/24 10:17 02/23/24 10:17 Pain Score Most Recent Pain Score: Most Recent Pain Score Pain Level [Right Lower Foot] 5 02/23/24 20:00 Pain Level 4 02/25/24 09:59 Assessment Mental Status: Awake (Alert & Oriented to Patient Baseline) Airway and Respiratory Function: Patent airway with normal (patient baseline) respiratory exam Cardiovascular Function: Hemodynamically Stable Hydration Status: Adequately Hydrated Nausea & Vomiting: No Nausea or Vomiting Pain: Pt. Denies Any Pain Peripheral Nerve Block: Patient did not receive a nerve block
--- NOTE | 2024-02-25 16:22 | PT.INNT ---
PT Notes Visit Reasons: Diabetic foot wound, Osteomyelitis Patient was unavailable for PT this morning and was at surgery in the afternoon. Will follow up tomorrow morning for planned PT session.
[2024-02-25 16:47] VITALS: BP 109/53; PULSE 55; RESP 18; O2SAT 94
--- NOTE | 2024-02-25 16:54 | ROE_ITS ---
Operative Note Operative Note PRE-OP DIAGNOSIS: Right Foot Wounds, Osteomyelitis POST-OP DIAGNOSIS: same PROCEDURE: Irrigation and debridement of right forefoot wound with secondary closure Irrigation and debridement of right lateral hindfoot wound Wound VAC application, right heel SURGEON: Portillo Rendon ANESTHESIA TYPE: General:No Airway Refer to Anesthesia Record ESTIMATED BLOOD LOSS: 5 PATHOLOGY: none sent TOURNIQUET TIME: 0 COMPLICATIONS: None Patient was transported to: floor Patient's condition: stable Indications: Mr. Galeano is a 73-year-old who has wounds about his right foot from pressure and from diabetes. He had debridement performed on Saturday with wound VAC placement. He returns to the operating today for repeat evaluation, irrigation debridement, and potential closure with wound VAC reapplication. I reviewed the technical details of the case with him. I discussed the risk to include continued infection, need for repeat procedures. Despite these risk, he elects to proceed. Findings: There is a healthy vascular wound bed in the forefoot. No necrotic tissue. No purulence. This was closed without tension. The hindfoot wound had good vascularity and some minor slough but no sign of infection. No purulence. Wound VAC was applied to the hindfoot. Procedure Description: Mr. Galeano was greeted in the preoperative holding area. His identity was confirmed the correct site was identified and marked. The consent was reviewed with the patient and signed. He was taken back to the operating room placed in the supine position. The right leg was placed onto a ramp for exposure of the heel. A bump was placed underneath the right hip. The wound VAC and dressing was removed. The right leg was prepped with Betadine. In general anesthesia without airway instrumentation was administered. A timeout was performed for safe surgery. Thorough irrigation was performed of both the hindfoot and forefoot wounds. Investigation of these wound showed no signs of purulence. No necrotic tissue. After irrigation of 1 L of normal saline to reach wound I then performed a debridement with a curette to the lateral hindfoot wound. The forefoot wound had excellent granulation and was able to be closed with minimal tension. Starting with the forefoot I closed the deep tissue utilizing a #2-0 PDS. This created a very small dogear with some roughened plantar skin to the medial aspect of the wound. Therefore, I excised this dogear out so the skin edges may lay flat against each other. With a deep layer reapproximated I then used a #2- 0 Prolene to reapproximate the skin edges using large simple sutures. This had excellent reapproximation of the skin without significant tension. Attention was then turned to the hindfoot wound. Once again there had been debridement performed. There is excellent vascularity. I then cut a black sponge down to appropriate size to fit the wound itself. Once this was cut down to size it was placed on the wound and secured utilizing the clear sticky drapes. The strips were applied and a hole was made for the suction device. This was placed. Suction was applied through the wound VAC and a seal was achieved. A Mepilex silver dressing was placed over the forefoot wound. An Huan wrap was placed around the foot and above the ankle. He was placed back into the pressure offloading boot. He was awake from anesthesia and transferred back to the medical surgical floor without difficulty and without complication. Date of Procedure: 02/25/24
[2024-02-25] MEDS: Insulin Aspart 300 UNITS/3 ML PEN SC (17:09)
[2024-02-25] MEDS: Insulin Aspart 300 UNITS/3 ML PEN 6 UNITS SC (17:10)
[2024-02-25] MEDS: metFORMIN 500 MG TAB PO (17:13)
[2024-02-25 19:13] VITALS: BP 104/90; PULSE 72; RESP 16; TEMP 36.5; O2SAT 93
[2024-02-25] MEDS: Rosuvastatin 20 MG TAB PO (20:16)
[2024-02-25] MEDS: Insulin Glargine 300 UNITS/3 ML PEN 48 UNITS SC (20:17)
[2024-02-25] MEDS: Gabapentin 300 MG CAP 1500 MG PO (20:17)
[2024-02-25 22:59] VITALS: BP 150/60; PULSE 73; RESP 18; TEMP 36.5; O2SAT 94
[2024-02-26] MEDS: Acetaminophen 325 MG TAB 650 MG PO (01:49)
[2024-02-26] MEDS: oxyCODONE 15 MG TAB PO (01:49)
[2024-02-26 02:39] VITALS: BP 116/63; PULSE 73; RESP 18; TEMP 36.3; O2SAT 94
[2024-02-26] MEDS: CEFEPIME 2 GM in Normal Saline 100 ML IVPB ×3 (05:00→20:19)
[2024-02-26 07:06] LABS: MCH 27.5 pg (27.0-33.0); MCHC 31.3 % (32.0-36.0); MCV 88 fL (80-95); MPV 10.5 fL (8.0-11.0); RBC 3.63 10^6/uL (4.36-5.78); RDW 14.6 % (11.8-14.1); RDW-SD 46.9 fL; WBC 17.84 10^3/uL (4.4-10.8)
[2024-02-26 07:09] LABS: Lab Add On Test DONE
[2024-02-26 07:33] VITALS: BP 109/54; PULSE 69; RESP 18; TEMP 36.7; O2SAT 93
[2024-02-26 08:01] LABS: Anion Gap 7.3 mmol/L (3-11); BUN 32 mg/dL (7-18); CO2 25.7 mmol/L (21.0-32.0); CREATININE 1.3 mg/dL (0.70-1.30); Calcium 8.8 mg/dL (8.5-10.1); Chloride 104 mmol/L (98-107); Estimated GFR 58.01 (mL/min/1.73m2); Glucose 294 mg/dL (74-106); Potassium 5.2 mmol/L (3.5-5.1); Sodium 137 mmol/L (136-145)
[2024-02-26 08:05] LABS: C-Reactive Protein 1.38 mg/dL (<or=0.5)
--- NOTE | 2024-02-26 08:28 | PDOC.CMPRO ---
Date of service: 02/26/24 Time of Service: 08:28 Care Management Progress Note Progress Note Text Progress Note Text: Eloy was sleeping the first time CM attempted to see him and staff was providing care the second time. Eloy went to the OR yesterday and had closure of part of his foot wound. The identification of the organism and susceptibilities from the wound culture taken during surgery will determine the antibiotic choice and course. Eloy remains non-weight bearing and is bedridden at this time. Discharge Potential Discharge Needs: Other (swing bed for IV antibiotics) Anticipated Barriers to Discharge: Medical Status Patient/Family Education Needs: Review discharge instructions, discuss Ask Me Three Transportation: Private vehicle Plan: Anticipate Eloy will be transitioned to SB-1 to complete his IV antibiotic therapy when medically stable. He will follow up with his surgeon and PCP and plan of care . CM will follow and continue to assess for discharge needs. Social Determinants of Health Screening Social Determinants of Health last assessed: 02/26/24 Will the Patient Participate in the Screening?: Yes Do you worry about having a steady place to live?: no Problems where you live: no known problems In the past 12 months, have you had to go without electric, gas, oil or water in your home?: no Have you or anyone in your house had to go without enough food to eat?: no Has lack of transportation kept you from medical appointments or from doing things needed for daily living?: no Has anyone in your life made you feel unsafe or unsupported?: no How hard is it for you to pay for the very basics like food, housing, medical care, and heating? Would you say it is:: Somewhat hard (concerned about medical bills; has [facility] financial assistance) Do you want help finding or keeping work or a job?: I do not need or want help If for any reason you need help with day-to-day activities such as bathing, preparing meals, shopping, managing finances, etc., do you get the help you need?: I get all the help I need (feels well supported at home) How often do you feel lonely or isolated from those around you?: Sometimes Do you speak a language other than Croatian at home?: No Does the patient want assistance with any of the above?: No Health Related Social Needs Health related social needs: problems related to housing/economic circumstances (Z59.89) and feeling lonely/isolated (Z60.8)
[2024-02-26] MEDS: Aspirin 81 MG CHEW PO (08:57)
[2024-02-26] MEDS: Docusate Sodium 100 MG CAP PO ×2 (08:58→20:15)
[2024-02-26] MEDS: Gabapentin 300 MG CAP 900 MG PO (08:58)
[2024-02-26] MEDS: Pantoprazole 40 MG TABCR PO (08:58)
[2024-02-26] MEDS: Ezetimibe 10 MG TAB PO (08:58)
[2024-02-26] MEDS: Clopidogrel 75 MG TAB PO (08:59)
[2024-02-26] MEDS: Cholecalciferol (Vitamin D3) 1,000 UNIT TAB 2000 UNITS PO (08:59)
[2024-02-26] MEDS: Lisinopril 2.5 MG TAB PO (08:59)
[2024-02-26] MEDS: Insulin Aspart 300 UNITS/3 ML PEN SC ×3 (08:59→16:47)
[2024-02-26] MEDS: Normal Saline Flush 10 ML SYR IVP ×4 (09:02→20:19)
[2024-02-26] MEDS: Nystatin OINT 15 GM TUBE TP ×2 (09:02→19:30)
[2024-02-26] MEDS: Nystatin POWDER 60 GM JAR TP ×3 (09:02→19:30)
[2024-02-26] MEDS: Insulin Aspart 300 UNITS/3 ML PEN 6 UNITS SC ×3 (09:04→16:48)
[2024-02-26 11:38] VITALS: BP 128/90; PULSE 76; RESP 18; TEMP 36.6; O2SAT 95
--- NOTE | 2024-02-26 12:56 | PGE_ITS ---
Date of Service Date of service: 02/26/24 Time of Service: 10:50 Assessment and Plan Assessment and plan (1) Acute osteomyelitis of metatarsal bone of right foot: Status: Acute Assessment and plan: Status post third and fourth metatarsal head resections. The metatarsal head is growing yeast as well as resistant Staph epidermidis. The staph organism is sensitive to vancomycin. Continue vancomycin. Discussed with infectious disease about duration of treatment now that the metatarsal head was resected and the wound bed appeared to be clean without recurrence of infection. Initial debridement was February 22 and closure was performed on February 24. Mepilex dressing is applied and to stay in place for 1 week with wound check at that time. I would not remove sutures for at least 3 weeks. He will remain nonweightbearing about the right foot and should utilize the pressure off grain unloader machine boot at all times. (2) Diabetic infection of right foot: Status: Acute Assessment and plan: Forefoot wound is now growing yeast as well as partially resistant Enterobacter cloacae. This appeared clean at the previous debridement and now has been closed. Continue with cefepime to cover this gram-negative bismark. Recommend discussion with infectious disease. (3) Diabetic ulcer of right heel: Status: Acute Assessment and plan: Lateral hindfoot wound, likely from a combination of diabetes as well as his neuropathy and pressure, does not go down to bone or tendon. This is also now growing yeast as well as staph hemolyticus. At the previous debridement there was no significant purulence and at this point he is going to have serial wound VAC dressing changes. We will attempt wound VAC dressing change at the bedside tomorrow. I will prescribe some Valium to take prior to the dressing change. I expect he will tolerate this well with some very mild pain if at all. Likely continue with wound VAC dressing changes. May consider referral to other providers for definitive wound care management. Continue the pressure offloading brace. Nonweightbearing. Subjective Subjective Interval history since last seen: No acute changes. No significant pain. He has had poor sleep. Cultures are now growing: Enterobacter Cloacae (resistant) - Forefoot Staph Epidermidis (resistant) - 3rd MT Head Staph Haemolyticus (resistant) - Lateral Hindfoot Yeast - Forefoot, 3rd MT Head, Lateral Hindfoot Exam Narrative Exam Narrative: Dressings intact about the right foot. It is appropriately placed within the pressure offloading boot. Wound VAC is functioning with no output and no leak at 120 mmHg. Objective Last Vital Signs Temp 36.6 C 02/26/24 11:38 Pulse 76 02/26/24 11:38 Resp 18 02/26/24 11:38 BP 128/90 02/26/24 11:38 Pulse Ox 95 02/26/24 11:38 Laboratory Results - last 24 hr 02/26/24 06:20 WBC 17.84 H RBC 3.63 L Hgb 10.0 L Hct 32.0 L MCV 88 MCH 27.5 MCHC 31.3 L RDW 14.6 H Plt Count 926 H* MPV 10.5 Sodium 137 Potassium 5.2 H Chloride 104 Carbon Dioxide 25.7 Anion Gap 7.3 BUN 32 H Creatinine 1.3 Est GFR (CKD-EPI 2020) 58.01 Glucose 294 H Calcium 8.8 C-Reactive Protein 1.38 H Add-On Test Request DONE Objective Narrative Objective Narrative: See HPI Time Spent with Patient Time Spent with Patient: >50 minutes Time was spent: preparing to see the patient(eg.review tests), obtaining and/or reviewing separately otained hiistory, ordering medications,tests, procedures, indepentently interpreting results, counseling the patient and care coordination
[2024-02-26 14:17] LABS: Platelet Count 926 10^3/uL (130-400)
[2024-02-26] MEDS: VANCOMYCIN/WATER (PEG) 1.75 GM/350 ML BAG IVPB (14:31)
[2024-02-26 15:22] VITALS: BP 113/56; PULSE 68; RESP 18; TEMP 36.7; O2SAT 95
--- NOTE | 2024-02-26 16:23 | W.PM.PROGNOT ---
Date of Service Date of service: 02/26/24 Time of Service: 16:23 Assessment and Plan Assessment and plan (1) Diabetic infection of right foot: Status: Acute Assessment and plan: -Patient presented due to worsening despite outpatient antibiotic therapy with increasing WBC count. -History of MRSA (in skin wound on chest). At risk for pseudomonas given DM wound on foot. -Preliminary wound cultures growing staph species (not aureus), and yeast -Micro has been asked to speciate yeast, will discuss with infectious disease on recommendation for treatment regimen once additional information is available -Has been on cefepime and vancomycin we will continue pending wound/surgical cultures -Ortho and podiatry were unavailable upon patient admission, was ultimately seen by orthopedic surgery on 02/22/2024 and taken to the OR on 02/23/2024 and is now POD #3 from irrigation and debridement of the right forefoot, right hindfoot, and large tarsal head resection of third and fourth metatarsals -patient is now POD #1 from wound closure of right forefoot wound (2) Type 2 diabetes mellitus: Status: Acute Assessment and plan: -A1c 6.1% in November, which represents overly aggressive control given his age and comorbities. 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 -He is done with 21 days of DAPT, but according to PCP he is still on DAPT related to his ongoing thrombocytosis pending hematology evaluation. -Will continue clopidogrel as well for now. -Hemeparesis and wounds, amputations affecting his ADLs. -He may need additional rehabilitation or addition help at home. He does not want to go back to [facility]. (4) Depression: Status: Chronic Assessment and plan: -being treated with fluoxetine. Unfortantely this medication can affect his clopidogrel. -will change to sertraline, but wait until discharge as otherwise will get too much overlap in effect given fluoxetine's long half life. (5) DVT prophylaxis: Assessment and plan: -High risk, enoxaparin (6) Edema: Status: Acute Assessment and plan: -Exact etiology is unknown but I do have some concerns for CHF. Will check BNP and consider echo is one hasn't been done in the past. My guess is that he had an echo recently 2/2 CVA work up. -TTE without acute findings -albumin low at 2.0 (7) Thrombocytosis: Status: Acute Assessment and plan: -Pt continues to have elevations in his platelets. -Pt does have an appt with [employer] Skills In[employer] which is pending (8) Infrarenal abdominal aortic aneurysm (AAA) without rupture: Assessment and plan: -abd/pelvic CT 10/20/23 ABDOMINAL AORTA: The abdominal aorta is atherosclerotic and there is a fusiform infrarenal abdominal aortic aneurysm below the level the inferior mesenteric artery takeoff point, this exhibiting maximum diameter of 3.2 cm. The common iliac arteries are calcified and minimally prominent. Will need surveillance at the discretion of the PCP Subjective Subjective Interval history since last seen: Patient states that he is doing well today. He also states that he has been having some difficulty sleeping over the last few nights, otherwise has no other complaints or concerns at this time. Exam Narrative Exam Narrative: Dressings intact about the right foot. It is appropriately placed within the pressure offloading boot. Wound VAC is functioning with no output and no leak at 120 mmHg. Objective Last Vital Signs Temp 98.1 F 02/26/24 15:22 Pulse 68 02/26/24 15:22 Resp 18 02/26/24 15:22 BP 113/56 L 02/26/24 15:22 Pulse Ox 95 02/26/24 15:22 Laboratory Results - last 24 hr 02/26/24 06:20 WBC 17.84 H RBC 3.63 L Hgb 10.0 L Hct 32.0 L MCV 88 MCH 27.5 MCHC 31.3 L RDW 14.6 H Plt Count 926 H* MPV 10.5 Sodium 137 Potassium 5.2 H Chloride 104 Carbon Dioxide 25.7 Anion Gap 7.3 BUN 32 H Creatinine 1.3 Est GFR (CKD-EPI 2020) 58.01 Glucose 294 H Calcium 8.8 C-Reactive Protein 1.38 H Add-On Test Request DONE Time Spent with Patient Time Spent with Patient: >50 minutes Time was spent: preparing to see the patient(eg.review tests), obtaining and/or reviewing separately otained hiistory, ordering medications,tests, procedures, referring, communicating with other health day care worker, indepentently interpreting results, counseling the patient and care coordination
[2024-02-26] MEDS: metFORMIN 500 MG TAB PO (16:48)
--- NOTE | 2024-02-26 16:56 | PT.INTREAT ---
PT Notes Visit Reasons: Diabetic foot wound, Osteomyelitis Physical Therapy Inpatient Treatment Note Date: 02/26/2024 Precautions: Fall. ON CONTACT PRECAUTIONS FOR MRSA. Residual L-sided hemiparesis. 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 L transtibial prosthesis and R spiral AFO (unable to don R spiral AFO at this time) in place when OOB. Post-op shoe on the R foot when OOB. NWB on the R LE per Dr. Rendon. L UE elevated on 2 pillows in extension. Subjective: Needed encouragement to participate in today's session. Objective: General Observation: Nurse Gauri dispensing medications for patient when PT came in. Mckeon catheter in place. Wound vacuum in place. L UE swelling noted. New Iv through L UE. Mental Status: Alert and oriented as to person, place, time, and purpose. Able to pay attention, focus, and respond appropriately. Speech intelligible. Pain: Catheter insertion while doing sit ups in bed Vital Signs: Closely monitored by nursing staff Bed Mobility/Transfers: Not done for this session Gait: Unable due to WB precaution and co-morbid status Balance: Static Sitting: Fair Dynamic Sitting: Fair Static Standing: Unable to test Dynamic Standing: Unable to test THERA EX: Patient has been performing bed level functional maintenance program using red theraband on either rails. Patient was encouraged to perform partial sit ups with bed at about 45 degrees with R hand pulling on rolled bed sheet tied onto foot board. Patient was able to perform activity x 10 reps with PT providing support and cueing for proper form and technique. Minimal shortness of breath noted after activity that subsided with rest. Ptiane reported minimal discomfort on catheter insertion site that resolved with activity completion. ASSESSMENT: Patient required encouragement to participate in today's session. Activity tolerance decreased. Signs of depression still observed. OOB activities on hold until clearance from hospitalist/orthopedic surgeon is received. Plan of Care/Treatment Plan: Patient will highly benefit from skilled physical therapy services including functional mobility training, bed mobility/transfer training, gait and balance training, therapeutic exercises, therapeutic activity, caregiver/staff/family education and training 1x/day, 7 days/week x 1 week. Initiate Physical Therapy intervention for strengthening, bed mobility, transfers, gait, stairs, balance training, use of assistive device. DISCHARGE RECOMMENDATIONS: [] Home with no services [] [] Home with services [specify] [] Home with outpatient PT [] [X] SNF for continued rehabilitation. Patient will benefit from half-way facility placement for continued skilled physical therapy services in order to progress mobility level, strength, and balance in preparation for a safe discharge to home. [] [facility] [] [] SNF versus LTC based on ability to participate and progress [] TREATMENT CODE/TIME: 47578 x 17 minutes for 1 unit (16:56-17:12).
[2024-02-26 19:28] VITALS: BP 121/91; PULSE 76; RESP 18; TEMP 36.1; O2SAT 94
[2024-02-26] MEDS: Enoxaparin 40 MG/0.4 ML SYR SC (20:15)
[2024-02-26] MEDS: Gabapentin 300 MG CAP 1500 MG PO (20:15)
[2024-02-26] MEDS: Rosuvastatin 20 MG TAB PO (20:15)
[2024-02-26] MEDS: Insulin Glargine 300 UNITS/3 ML PEN 48 UNITS SC (20:17)
[2024-02-26 23:02] VITALS: BP 125/56; PULSE 63; RESP 18; TEMP 36.4; O2SAT 93
[2024-02-27] MEDS: diphenhydrAMINE 25 MG CAP PO ×2 (01:06→23:31)
[2024-02-27] MEDS: Melatonin 3 MG TAB 9 MG PO ×2 (01:09→23:31)
[2024-02-27 04:03] VITALS: BP 127/61; PULSE 60; RESP 18; TEMP 36.4; O2SAT 94
[2024-02-27] MEDS: CEFEPIME 2 GM in Normal Saline 100 ML IVPB (04:56)
[2024-02-27] MEDS: oxyCODONE 15 MG TAB PO ×4 (06:32→23:34)
[2024-02-27 07:25] VITALS: BP 128/60; PULSE 62; RESP 20; TEMP 36.4; O2SAT 96
[2024-02-27] MEDS: MORPHine 2 MG/ML SYR IVP (08:47)
[2024-02-27] MEDS: Cholecalciferol (Vitamin D3) 1,000 UNIT TAB 2000 UNITS PO (08:54)
[2024-02-27] MEDS: Gabapentin 300 MG CAP 900 MG PO (08:54)
[2024-02-27] MEDS: Ezetimibe 10 MG TAB PO (08:54)
[2024-02-27] MEDS: Clopidogrel 75 MG TAB PO (08:54)
[2024-02-27] MEDS: Docusate Sodium 100 MG CAP PO ×2 (08:54→21:05)
[2024-02-27] MEDS: Acetaminophen 325 MG TAB 650 MG PO ×2 (08:55→21:05)
[2024-02-27] MEDS: Aspirin 81 MG CHEW PO (08:55)
[2024-02-27] MEDS: LORazepam 0.5 MG TAB PO (08:55)
[2024-02-27] MEDS: Pantoprazole 40 MG TABCR PO (08:55)
[2024-02-27] MEDS: Nystatin OINT 15 GM TUBE TP (08:56)
[2024-02-27] MEDS: Nystatin POWDER 60 GM JAR TP ×3 (08:56→23:30)
[2024-02-27] MEDS: Normal Saline Flush 10 ML SYR IVP ×4 (08:57→21:04)
[2024-02-27] MEDS: Insulin Aspart 300 UNITS/3 ML PEN SC (08:58)
[2024-02-27] MEDS: Insulin Aspart 300 UNITS/3 ML PEN 6 UNITS SC ×3 (08:58→18:28)
[2024-02-27] MEDS: Lisinopril 2.5 MG TAB PO (09:03)
--- NOTE | 2024-02-27 09:27 | CMPROGNOTE_ITS ---
Date of service: 02/27/24 Time of Service: 09:27 Care Management Progress Note Progress Note Text Progress Note Text: Eloy was sitting up in bed when CM met with him. He was pleasant but is becoming frustrated with the lack of a clear plan.The exact treatment course for his osteomyelitis has not been determined nor how long he will need to remain hospitalized. Adding to his frustration is the fact that he his is essentially missing. He had believed she was in [facility] caring for her ill mother but that may not be the case.Hopefully Eloy will get more answers soon so that he can plan accordingly. Discharge Potential Discharge Needs: Other (SB-1) Anticipated Barriers to Discharge: Medical Status Patient/Family Education Needs: Review discharge instructions, discuss Ask Me Three Transportation: Private vehicle Plan: Anticipate Eloy will be transitioned to SB-1 to complete his IV antibiotic therapy when medically stable. He will follow up with his surgeon and PCP and plan of care . CM will follow and continue to assess for discharge needs. Social Determinants of Health Screening Social Determinants of Health last assessed: 03/02/24 Will the Patient Participate in the Screening?: Yes Do you worry about having a steady place to live?: no Problems where you live: no known problems In the past 12 months, have you had to go without electric, gas, oil or water in your home?: no Have you or anyone in your house had to go without enough food to eat?: no Has lack of transportation kept you from medical appointments or from doing things needed for daily living?: no Has anyone in your life made you feel unsafe or unsupported?: no How hard is it for you to pay for the very basics like food, housing, medical care, and heating? Would you say it is:: Somewhat hard (concerned about medical bills; has [facility] financial assistance) Do you want help finding or keeping work or a job?: I do not need or want help If for any reason you need help with day-to-day activities such as bathing, preparing meals, shopping, managing finances, etc., do you get the help you need?: I get all the help I need (feels well supported at home) How often do you feel lonely or isolated from those around you?: Sometimes Do you speak a language other than Czech at home?: No Does the patient want assistance with any of the above?: No Health Related Social Needs Health related social needs: problems related to housing/economic circumstances (Z59.89) and feeling lonely/isolated (Z60.8)
--- NOTE | 2024-02-27 10:12 | PT.INTREAT ---
PT Notes Visit Reasons: Diabetic foot wound, Osteomyelitis Physical Therapy Inpatient Treatment Note Date: 02/27/2024 Precautions: Fall. ON CONTACT PRECAUTIONS FOR MRSA. Residual L-sided hemiparesis. 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 L transtibial prosthesis and R spiral AFO (unable to don R spiral AFO at this time) in place when OOB. Post-op shoe on the R foot when OOB. NWB on the R LE per Dr. Rendon. L UE elevated on 2 pillows in extension. Subjective: Anxious about moving R foot. Agreeable to transferring onto chair today and then to new bed with overhead trapeze. Objective: General Observation: Darshan Curtis and Fariba present in room to swap beds from to as patient's bed in is not able to accommodate an overhead trapeze assembly. Mental Status: Alert and oriented as to person, place, time, and purpose. Able to pay attention, focus, and respond appropriately. Speech intelligible. Pain: None reported Vital Signs: Closely monitored by nursing staff Bed Mobility/Transfers: Not done for this session Gait: Unable due to WB precaution and co-morbid status Balance: Static Sitting: Fair Dynamic Sitting: Fair Static Standing: Unable to test Dynamic Standing: Unable to test ASSESSMENT: Treatment today included caregiver training with safe patient handling and transport from bed to chair with assiatnce from Darshan Curtis and Gertrude. Patient was agreeable with staying up on bedside recliner until after lunch before transferrring back onto new bed with attahced overhead trapeze assembly. Patient required encouragement to participate in today's session. Activity tolerance decreased. Signs of depression still observed. OOB activities on hold until clearance from hospitalist/orthopedic surgeon is received. Plan of Care/Treatment Plan: Patient will highly benefit from skilled physical therapy services including functional mobility training, bed mobility/transfer training, gait and balance training, therapeutic exercises, therapeutic activity, caregiver/staff/family education and training 1x/day, 7 days/week x 1 week. Initiate Physical Therapy intervention for strengthening, bed mobility, transfers, gait, stairs, balance training, use of assistive device. DISCHARGE RECOMMENDATIONS: [] Home with no services [] [] Home with services [specify] [] Home with outpatient PT [] [X] SNF for continued rehabilitation. Patient will benefit from [facility] for continued skilled physical therapy services in order to progress mobility level, strength, and balance in preparation for a safe discharge to home. [] [facility] [] [] SNF versus LTC based on ability to participate and progress [] TREATMENT CODE/TIME: 81680 x 33 minutes for 2 units (09:44-09:58 and 10:12-10:31).
[2024-02-27 10:23] LABS: Vancomycin, Random 14.4 ug/mL
--- NOTE | 2024-02-27 10:55 | PGE_ITS ---
Date of Service Date of service: 02/27/24 Time of Service: 15:30 Assessment and Plan Assessment and plan (1) Acute osteomyelitis of metatarsal bone of right foot: Status: Acute Assessment and plan: Status post third and fourth metatarsal head resections. The metatarsal head is growing yeast as well as resistant Staph epidermidis. The staph organism is sensitive to vancomycin. Continue vancomycin. Discussed with infectious disease about duration of treatment now that the metatarsal head was resected and the wound bed appeared to be clean without recurrence of infection. Initial debridement was February 22 and closure was performed on February 24. Mepilex dressing is applied and to stay in place for 1 week with wound check at that time. Mepilex dressing may be replaced as necessary by nursing. I would not remove sutures for at least 3 weeks. He will remain nonweightbearing about the right foot and should utilize the pressure off screen printing loader unloader boot at all times. I will allow him to place the weight on the right foot for transfers for bathroom privileges. The orders were addended. (2) Diabetic ulcer of right heel: Status: Acute Assessment and plan: Lateral hindfoot wound, likely from a combination of diabetes as well as his neuropathy and pressure, does not go down to bone or tendon. This is also now growing yeast as well as staph hemolyticus. At the previous debridement there was no significant purulence and at this point he is going to have serial wound VAC dressing changes. We will attempt wound VAC dressing change at the bedside tomorrow. I will prescribe some Valium to take prior to the dressing change. I expect he will tolerate this well with some very mild pain if at all. Likely continue with wound VAC dressing changes. Continue the pressure offloading brace. Nonweightbearing several bathroom privileges. At this point, I am not sure the best direction. This should likely be managed by someone with more experience with these complex wounds. I have reached out to Dr. Robles of podiatry for an evaluation. However, it is very likely he needs to see a complex wound clinic with vascular surgical team. (3) Bilateral femoral artery stenosis: Status: Acute Assessment and plan: His arterial supply to the foot is likely compromised based on the CTA and is prolonging the healing process of these wounds but also leading to his significant fragility with any pressure against the right foot. This is complicated by his neuropathy and diabetes. We have tried to transfer and evaluate by vascular surgery on multiple occasions by the hospitalist team. However, he has been denied transfer or acceptance. I will await podiatry input but I still think we may need to consider transfer for evaluation by vascular surgery. (4) Pressure injury of right foot, stage 1: Status: Acute Assessment and plan: New injuries to the right foot. These are likely from the Huan wrap although the Huan wrap is soft and wrapped gently. This is quite discouraging given the complexity of this case and how easy he is developing pressure sores. Most of these areas still do have some blanching. I have asked for another wound care consult. I recommend that they apply some type of foam border type dressing over these areas to prevent any direct pressure. Subjective Subjective Interval history since last seen: No acute issues or concerns. He had pain last night as he was trying to sleep but this responded well to IV pain medication. Exam Narrative Exam Narrative: Sitting up in the chair. No acute distress. The Huan wrap was removed from the right foot. Unfortunate, this shows new stage I pressure spots throughout the foot. He has had a fairly consistent area over the head of the navicular medially. There is a dorsal wound which was noted from Curlex wrapping previously. I did apply an Huan wrap lightly to the foot to help out with some swelling within the foot. Unfortunately he now has some pressure changes over the lateral border of the foot and the dorsum of the foot extending over the dorsal medial aspect of the midfoot to forefoot. No drainage on the distal wound. The Mepilex dressings in place and was rolled back which showed no signs of active drainage or infection. The wound is still reapproximated. And then performed a wound VAC dressing change. The dressing material was removed from the skin and the sponge was removed from the hindfoot wound. He had some minimal pain during this process. A new sponge was placed onto the wound. This was followed by the clear drapes. The wound VAC was attached and there was no leak detected. Objective Last Vital Signs Temp 36.4 C L 02/27/24 07:25 Pulse 62 02/27/24 07:25 Resp 20 02/27/24 07:25 BP 128/60 02/27/24 07:25 Pulse Ox 96 02/27/24 07:25 Laboratory Results - last 24 hr 02/26/24 02/27/24 06:20 09:55 Plt Count 926 H* Random Vancomycin 14.4 Time Spent with Patient Time Spent with Patient: >50 minutes Time was spent: preparing to see the patient(eg.review tests), obtaining and/or reviewing separately otained hiistory, ordering medications,tests, procedures, referring, communicating with other health daycare teacher, counseling the patient and care coordination
[2024-02-27 13:00] VITALS: BP 127/61; PULSE 56; RESP 20; TEMP 36.6; O2SAT 98
[2024-02-27] MEDS: VANCOMYCIN/WATER (PEG) 1.75 GM/350 ML BAG IVPB (14:35)
[2024-02-27] MEDS: diazePAM 5 MG TAB PO (15:07)
--- NOTE | 2024-02-27 16:26 | CHAPLAIN ---
Suhail Lyons was up in the chair when I visited. He said he was trying to get comfortable in the chair and then planning to nap. I explained my role and offered support. I will continue to visit.
--- NOTE | 2024-02-27 16:27 | PDOC.CMPRO ---
Date of service: 02/27/24 Time of Service: 16:27 Care Management Progress Note Progress Note Text Progress Note Text: Eloy was up in the chair when CM met with him today. He was pleasant with CM, but discussed with CM that his is currently in [facility] with another man. She has been lying to him and he is understandably very upset. Eloy stated being very worried about his plan after discharge, as there will be no one home to help him. CM listened to Eloy for quite some time. CM and he discussed that he will likely be here for another 6 weeks, or so, and hopefully we can get a good discharge plan in place during that time. Discharge Potential Discharge Needs: Other (swing bed-1 to complete his IV antibiotic course when medically stable. ) Anticipated Barriers to Discharge: Medical Status Patient/Family Education Needs: Review discharge instructions, discuss Ask Me Three Transportation: Private vehicle Plan: Anticipate Eloy will be transitioned to SB-1 to complete his IV antibiotic therapy when medically stable. He will follow up with his surgeon and PCP and plan of care . CM will follow and continue to assess for discharge needs. Social Determinants of Health Screening Social Determinants of Health last assessed: 02/27/24 Will the Patient Participate in the Screening?: Yes Do you worry about having a steady place to live?: no Problems where you live: no known problems In the past 12 months, have you had to go without electric, gas, oil or water in your home?: no Have you or anyone in your house had to go without enough food to eat?: no Has lack of transportation kept you from medical appointments or from doing things needed for daily living?: no Has anyone in your life made you feel unsafe or unsupported?: no How hard is it for you to pay for the very basics like food, housing, medical care, and heating? Would you say it is:: Somewhat hard (concerned about medical bills; has [facility] financial assistance) Do you want help finding or keeping work or a job?: I do not need or want help If for any reason you need help with day-to-day activities such as bathing, preparing meals, shopping, managing finances, etc., do you get the help you need?: I get all the help I need (feels well supported at home) How often do you feel lonely or isolated from those around you?: Sometimes Do you speak a language other than Italian at home?: No Does the patient want assistance with any of the above?: No Health Related Social Needs Health related social needs: problems related to housing/economic circumstances (Z59.89) and feeling lonely/isolated (Z60.8)
[2024-02-27] MEDS: metFORMIN 500 MG TAB PO (18:29)
--- NOTE | 2024-02-27 19:04 | PGE_ITS ---
Date of Service Date of service: 02/27/24 Time of Service: 19:04 Assessment and Plan Assessment and plan (1) Diabetic infection of right foot: Status: Acute Assessment and plan: -Patient presented due to worsening despite outpatient antibiotic therapy with increasing WBC count. -History of MRSA (in skin wound on chest). At risk for pseudomonas given DM wound on foot. -Preliminary wound cultures growing staph species (not aureus), and yeast -Micro has been asked to speciate yeast, will discuss with infectious disease on recommendation for treatment regimen once additional information is available -Has been on cefepime and vancomycin we will continue pending wound/surgical cultures -Ortho and podiatry were unavailable upon patient admission, was ultimately seen by orthopedic surgery on 02/22/2024 and taken to the OR on 02/23/2024 and is now POD #4 from irrigation and debridement of the right forefoot, right hindfoot, and large tarsal head resection of third and fourth metatarsals -patient is now POD #2 from wound closure of right forefoot wound -Lateral hindfoot wound apparently with more drainage as compared to previous day, concern for increasing complexity of wound also in combination of bilateral femoral arteries stenosis and poor blood supply; orthopedic surgeon will discuss with podiatry tomorrow 02/28/2024 to discuss best course of action and potential need for involvement with vascular surgery intervention (2) Type 2 diabetes mellitus: Status: Acute Assessment and plan: -A1c 6.1% in November, which represents overly aggressive control given his age and comorbities. 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 -He is done with 21 days of DAPT, but according to PCP he is still on DAPT related to his ongoing thrombocytosis pending hematology evaluation. -Will continue clopidogrel as well for now. -Hemeparesis and wounds, amputations affecting his ADLs. -He may need additional rehabilitation or addition help at home. He does not wa nt to go back to [facility]. (4) Depression: Status: Chronic Assessment and plan: -being treated with fluoxetine. Unfortantely this medication can affect his clopidogrel. -will change to sertraline, but wait until discharge as otherwise will get too much overlap in effect given fluoxetine's long half life. (5) DVT prophylaxis: Assessment and plan: -High risk, enoxaparin (6) Edema: Status: Acute Assessment and plan: -Exact etiology is unknown but I do have some concerns for CHF. Will check BNP and consider echo is one hasn't been done in the past. My guess is that he had an echo recently 2/2 CVA work up. -TTE without acute findings -albumin low at 2.0 (7) Thrombocytosis: Status: Acute Assessment and plan: -Pt continues to have elevations in his platelets. -Pt does have an appt with [facility] which is pending (8) Infrarenal abdominal aortic aneurysm (AAA) without rupture: Assessment and plan: -abd/pelvic CT 10/20/23 ABDOMINAL AORTA: The abdominal aorta is atherosclerotic and there is a fusiform infrarenal abdominal aortic aneurysm below the level the inferior mesenteric artery takeoff point, this exhibiting maximum diameter of 3.2 cm. The common iliac arteries are calcified and minimally prominent. Will need surveillance at the discretion of the PCP Subjective Subjective Interval history since last seen: Patient states that he is doing well today though he has been experiencing more pain in his foot, otherwise has no other concerns at this time. Exam Narrative Exam Narrative: Well-appearing older gentleman laying in bed in no acute distress, ANO x 4, heart regular rhythm, lungs clear to auscultation bilaterally, abdomen soft, nontender, nondistended, status post left AKA, right fore foot and hindfoot with wound VAC in place Objective Last Vital Signs Temp 97.5 F L 02/27/24 07:25 Pulse 62 02/27/24 07:25 Resp 20 02/27/24 07:25 BP 128/60 02/27/24 07:25 Pulse Ox 96 02/27/24 07:25 Laboratory Results - last 24 hr 02/27/24 09:55 Random Vancomycin 14.4 Time Spent with Patient Time Spent with Patient: >50 minutes Time was spent: preparing to see the patient(eg.review tests), obtaining and/or reviewing separately otained hiistory, ordering medications,tests, procedures, referring, communicating with other health long term acute care registered nurse, indepentently interpreting results, counseling the patient and care coordination
[2024-02-27 19:07] VITALS: BP 120/60; PULSE 68; RESP 18; O2SAT 96
[2024-02-27] MEDS: Insulin Glargine 300 UNITS/3 ML PEN 48 UNITS SC (21:04)
[2024-02-27] MEDS: Enoxaparin 40 MG/0.4 ML SYR SC (21:04)
[2024-02-27] MEDS: Gabapentin 300 MG CAP 1500 MG PO (21:05)
[2024-02-27] MEDS: Rosuvastatin 20 MG TAB PO (21:05)
[2024-02-27 23:24] VITALS: BP 123/53; PULSE 67; RESP 18; TEMP 36.4; O2SAT 96
[2024-02-28 03:10] VITALS: BP 120/59; PULSE 56; RESP 18; TEMP 36.5; O2SAT 96
[2024-02-28 07:36] VITALS: BP 127/72; PULSE 61; RESP 16; TEMP 35.6; O2SAT 94
[2024-02-28] MEDS: Pantoprazole 40 MG TABCR PO (08:40)
[2024-02-28] MEDS: Cholecalciferol (Vitamin D3) 1,000 UNIT TAB 2000 UNITS PO (08:40)
[2024-02-28] MEDS: Aspirin 81 MG CHEW PO (08:40)
[2024-02-28] MEDS: Clopidogrel 75 MG TAB PO (08:40)
[2024-02-28] MEDS: Gabapentin 300 MG CAP 900 MG PO (08:41)
[2024-02-28] MEDS: Lisinopril 2.5 MG TAB PO (08:41)
[2024-02-28] MEDS: Nystatin POWDER 60 GM JAR TP ×3 (08:41→20:07)
[2024-02-28] MEDS: Ezetimibe 10 MG TAB PO (08:41)
[2024-02-28] MEDS: Nystatin OINT 15 GM TUBE TP ×2 (08:42→20:06)
[2024-02-28] MEDS: Normal Saline Flush 10 ML SYR IVP ×3 (08:43→20:05)
[2024-02-28] MEDS: Insulin Aspart 300 UNITS/3 ML PEN 6 UNITS SC ×3 (08:45→17:35)
[2024-02-28] MEDS: Docusate Sodium 100 MG CAP PO ×2 (08:47→20:02)
--- NOTE | 2024-02-28 08:47 | CMPROGNOTE_ITS ---
Date of service: 02/28/24 Time of Service: 08:47 Care Management Progress Note Progress Note Text Progress Note Text: Eloy was lying in bed with the HOB elevated and meeting with the hospitalist when CM joined the conversation. Eloy was admitted 12 days ago was expressing his concerns surrounding the availability of podiatry and shared that he had been expecting to meet with the Podiatry since 02/24/24. Transfer to a tertiary facility with a wound care physician and hyperbaric chamber is being considered due to the complexity of his infection, per Dr. Galeas and is awaiting guidance from podiatry and Dr. Rendon. It is unclear to CM at this time if Eloy would be agreeable to transfer and states that he is under the impression that Dr. Rendon could effectively manage his treatment and surgical needs here. CM reviewed with Dr. Galeas and will continue to follow and support discharge considerations as they develop. Discharge Potential Discharge Needs: Other (swing bed-1 to complete his IV antibiotic course when medically stable.) Anticipated Barriers to Discharge: Medical Status Patient/Family Education Needs: Review discharge instructions, discuss Ask Me Three Transportation: Private vehicle Plan: Discharge planning continues. Will need transfer to tertiary facility vs. transition to SB-1 to complete recommended course of LT IV abx, when medically stable. CM will follow and continue to assess for discharge needs. Social Determinants of Health Screening Social Determinants of Health last assessed: 02/28/24 Will the Patient Participate in the Screening?: Yes Do you worry about having a steady place to live?: no Problems where you live: no known problems In the past 12 months, have you had to go without electric, gas, oil or water in your home?: no Have you or anyone in your house had to go without enough food to eat?: no Has lack of transportation kept you from medical appointments or from doing things needed for daily living?: no Has anyone in your life made you feel unsafe or unsupported?: no How hard is it for you to pay for the very basics like food, housing, medical care, and heating? Would you say it is:: Somewhat hard (concerned about medical bills; has [facility] financial assistance) Do you want help finding or keeping work or a job?: I do not need or want help If for any reason you need help with day-to-day activities such as bathing, preparing meals, shopping, managing finances, etc., do you get the help you need?: I get all the help I need (feels well supported at home) How often do you feel lonely or isolated from those around you?: Sometimes Do you speak a language other than Surinamese at home?: No Does the patient want assistance with any of the above?: No Health Related Social Needs Health related social needs: problems related to housing/economic circumstances (Z59.89) and feeling lonely/isolated (Z60.8)
[2024-02-28] MEDS: Polyethylene Glycol 3350 17 GM PACKET PO (10:41)
[2024-02-28 10:56] VITALS: BP 101/60; PULSE 72; RESP 16; TEMP 36.2; O2SAT 94
--- NOTE | 2024-02-28 11:08 | W.PM.PROGNOT ---
Date of Service Date of service: 02/28/24 Time of Service: 11:08 Assessment and Plan Assessment and plan (1) Diabetic infection of right foot: Status: Acute Assessment and plan: -Patient presented due to worsening despite outpatient antibiotic therapy with increasing WBC count. -History of MRSA (in skin wound on chest). At risk for pseudomonas given DM wound on foot. -Preliminary wound cultures growing staph species (not aureus), and yeast -Micro has been asked to speciate yeast, will discuss with infectious disease on recommendation for treatment regimen once additional information is available -Has been on cefepime and vancomycin we will continue pending wound/surgical cultures -Ortho and podiatry were unavailable upon patient admission, was ultimately seen by orthopedic surgery on 02/22/2024 and taken to the OR on 02/23/2024 and is now POD #4 from irrigation and debridement of the right forefoot, right hindfoot, and large tarsal head resection of third and fourth metatarsals -patient is now POD #2 from wound closure of right forefoot wound -Lateral hindfoot wound apparently with more drainage as compared to previous day, concern for increasing complexity of wound also in combination of bilateral femoral arteries stenosis and poor blood supply; orthopedic surgeon will discuss with podiatry tomorrow 02/28/2024 to discuss best course of action and potential need for involvement with vascular surgery intervention 02.27.23 My feeling remains that Mr. Galeano would benefit from a transfer to a higher level of care for evaluation by a Wound Care Physician, Vascular, ID, and Plastics. I have reached out to Dr. Robles of the Podiatry service but have not heard back yet in regards to wound healing recommendations. SWAB; RIGHT LATERAL HINDFOOT Organism 1 Staphylococcus haemolyticus GROWTH RARE GROWTH Organism 2 YEAST GROWTH RARE GROWTH Stap haem Result Ciprofloxacin R Gentamicin R Trimethoprim/Sulfamethoxazole R Erythromycin R Oxacillin R Vancomycin S Gram Stain Final 02/23/24-1209 GRAM STAIN No White Blood Cells No Bacteria Seen BONE; 3RD METATARSAL HEAD Organism 1 Staphylococcus epidermidis GROWTH RARE GROWTH Organism 2 YEAST GROWTH RARE GROWTH Stap epid Result Ciprofloxacin R Gentamicin S Trimethoprim/Sulfamethoxazole R Erythromycin R Oxacillin R Vancomycin S Gram Stain Final 02/23/24-1208 GRAM STAIN Rare White Blood Cells No Bacteria Seen SWAB; RIGHT FOREFOOT RARE MIXED GRAM POSITIVE ANNIKA CONSISTENT WITH SKIN ORGANISMS PRESENT. Organism 1 ENTEROBACTER CLOACAE COMPLEX GROWTH RARE GROWTH Organism 2 YEAST GROWTH RARE GROWTH Organism 3 Gram positive annika, mixed GROWTH RARE GROWTH Ent maria co Result Cefazolin R Ceftazidime S CEFTRIAXONE S Ciprofloxacin I Gentamicin S Imipenem S Levofloxacin I Tobramycin S Trimethoprim/Sulfamethoxazole R Piperacillin/Tazobactam S Will restart Cefepime. (2) Type 2 diabetes mellitus: Status: Acute Assessment and plan: -A1c 6.1% in November, which represents overly aggressive control given his age and comorbities. -Will continue outpatient medication with lowered doses here 02.28.24 Pt's last BG readings are 96/177/254/274. C/w current medical regimen (3) 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 of cerebrovascular accident: Status: Acute Assessment and plan: -Continue ASA and high intensity statin. -He is done with 21 days of DAPT, but according to PCP he is still on DAPT related to his ongoing thrombocytosis pending hematology evaluation. -Will continue clopidogrel as well for now. -Hemeparesis and wounds, amputations affecting his ADLs. -He may need additional rehabilitation or addition help at home. He does not want to go back to [facility]. (4) Depression: Status: Chronic Assessment and plan: -being treated with fluoxetine. Unfortantely this medication can affect his clopidogrel. -will change to sertraline, but wait until discharge as otherwise will get too much overlap in effect given fluoxetine's long half life. 02.27.23 Lovenox 1/2 life for active metabolite is appx 10 days according to [facility]. Will hold for a bit longer (5) DVT prophylaxis: Assessment and plan: -High risk, enoxaparin (6) Edema: Status: Acute Assessment and plan: -Exact etiology is unknown but I do have some concerns for CHF. Will check BNP and consider echo is one hasn't been done in the past. My guess is that he had an echo recently 2/2 CVA work up. -TTE without acute findings -albumin low at 2.0 (7) Thrombocytosis: Status: Acute Assessment and plan: -Pt continues to have elevations in his platelets. -Pt does have an appt with [facility] which is pending 02.27.23 pending labs for am (8) Infrarenal abdominal aortic aneurysm (AAA) without rupture: Assessment and plan: -abd/pelvic CT 10/20/23 ABDOMINAL AORTA: The abdominal aorta is atherosclerotic and there is a fusiform infrarenal abdominal aortic aneurysm below the level the inferior mesenteric artery takeoff point, this exhibiting maximum diameter of 3.2 cm. The common iliac arteries are calcified and minimally prominent. Will need surveillance at the discretion of the PCP Subjective Subjective Interval history since last seen: Pt seen and examined in his room this am. POC d/w pt as well as with bedside nurse during MDR. Per report from my colleague Dr. Jurado, the forefoot wound does appear to be healing appropriately but the calcaneal wound has not improved as much. Exam Narrative Exam Narrative: Well-appearing older gentleman laying in bed in no acute distress, ANO x 4, heart regular rhythm, lungs clear to auscultation bilaterally, abdomen soft, nontender, nondistended, status post left AKA, right fore foot and hindfoot with wound VAC in place Objective Last Vital Signs Temp 36.2 C L 02/28/24 10:56 Pulse 72 02/28/24 10:56 Resp 16 02/28/24 10:56 BP 101/60 02/28/24 10:56 Pulse Ox 94 02/28/24 10:56 Time Spent with Patient Time Spent with Patient: 35-49 minutes Time was spent: preparing to see the patient(eg.review tests), obtaining and/or reviewing separately otained hiistory, ordering medications,tests, procedures, referring, communicating with other health rn long term care, indepentently interpreting results, counseling the patient and care coordination
--- NOTE | 2024-02-28 12:45 | PT.INTREAT ---
PT Notes Visit Reasons: Diabetic foot wound, Osteomyelitis Physical Therapy Inpatient Treatment Note Date: 02/28/2024 Precautions: Fall. ON CONTACT PRECAUTIONS. Residual L-sided hemiparesis. 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 L transtibial prosthesis and R spiral AFO (unable to don R spiral AFO at this time) in place when OOB. NWB on the R LE but may minimally weight bear during essential transfers only per Dr. Rendon. L UE elevated on 2 pillows for edema reduction. SUBJECTIVE: Apprehensive about moving and putting weight on R foot. Understands new order of minimal weight bearing on R foot only for essential transfers to bedside commode. Highly anxious about what the future holds in terms of being able to move independently again. Agreeable to calling for PT and [employer] to try have a bowel movement once he feels the urge to-- he has no defecation since 4 days ago. Discomfort at catheter insertion with movement, soreness in R ankle to palpation and with movement reported. Objective: General Observation: [employer] Cecelia present to assist with transfer from bed to wheelchair to attempt bowel movement. Mental Status: Alert and oriented as to person, place, time, and purpose. Able to pay attention, focus, and respond appropriately. Signs of depression due to uncertainty of his overall condition observed. Pain: As above Vital Signs: Closely monitored by nursing staff Bed Mobility/Transfers: Minimal cueing provided for use of B hands as needed for support, movement sequence, AD management, and posture to reduce fall risk and minimize pain report. Careful attention was given to the R LE throughout all this movement to minimize symptom exacerbation and unnecessary shear. Blue foam on at all times, pillow plced under R foot while patient was on commode for comfort. Supine to sit: moderate assist of 2 with HOB at 45 degrees, overhead trapeze used during the first half of ascent to sitting for support Sit to stand using STEDY: moderate assist of 2 with bed elevated to patient's preference to optimze mechanical advantage of trunk musculature Stand to sit onto bedside commode from STEDY lift: moderate assist of 2 Gait: DEFERRED Balance: Static Sitting: Fair Dynamic Sitting: Fair Static Standing: Poor. Patient able to weight bear minimally onto R foot with blue soft bootie on at all times to minimize loading onto incision sites/wound areas. Tolerated about 1 minute of static standing with lean onto L prosthetic leg as instrcuted. Dynamic Standing: Unable to test ASSESSMENT: Patient with stage 1 pressure injury of the R foot and osteomyelitis of metatarsal bone of R foot with contamination caused by pathogen staphylococcus epidermidis, patient is S/P 3rd and 4th metatarsal head resection with initial debridement on 02/23/2024 and closure on 02/25/2024. Patient also with staphylococcus haemolyticus infection on the R lateral hindfoot. Healing on wounds stunted by B femoral artery stenosis. Treatment today included caregiver training with safe patient handling and transport from bed to bedside commode with assiatnce from OLENA Rai. Patient required encouragement to participate in today's session. Activity tolerance decreased. Signs of depression still observed. PLAN OF CARE/TREATMENT PLAN: 1-2x/day with treatment focus on: 1. Increasing independence of bed<>bedside commode transfer as tolerated 2. Maximizing B UE/LE strength using bed level exercises 3. Optimizing trunk stability/core strength using bed level/seated exercises 4. Exploring alternative transfer techniques that will provide the least WB and shear on the R foot, e.g. slide board transfer 5. Assist with improving self-confidence and reliance to minimize long-term effects of depression on patient's motivation 6. Facilitate/expedite healing of wounds by doing gentle AROM/PROM exercises to B hips and knees to increase circulation DISCHARGE RECOMMENDATIONS: [] Home with no services [] [] Home with services [specify] [] Home with outpatient PT [] [X] SNF for continued rehabilitation. Patient will benefit from half-way facility placement for continued skilled physical therapy services in order to progress mobility level, strength, and balance in preparation for a safe discharge to home. [] Pricing Lead Care [] [] SNF versus LTC based on ability to participate and progress [] TREATMENT CODE/TIME: 59717 x 36 minutes for 2 units (10:11-10:21 and 12:43-13:09).
[2024-02-28] MEDS: CEFEPIME 2 GM in Normal Saline 100 ML IVPB ×2 (13:22→20:03)
[2024-02-28] MEDS: Insulin Aspart 300 UNITS/3 ML PEN SC ×2 (13:23→17:36)
[2024-02-28] MEDS: VANCOMYCIN/WATER (PEG) 1.75 GM/350 ML BAG IVPB (14:37)
[2024-02-28 15:06] LABS: Bilirubin Negative (Negative); Blood Large (Negative); Clarity Cloudy (Clear); Glucose 100 mg/dL (Negative); Ketones Negative (Negative); Leukocyte Esterase Trace (Negative); Nitrite Negative (Negative); Specific Gravity 1.025 (1.005-1.025); Urobilinogen 0.2 mg/dL (Up to 0.2); pH 5.5 (5-8)
[2024-02-28 15:14] LABS: Bacteria Few HPF (Negative); C & S Indicated? Yes; Crystals Negative HPF (Negative); Epithelial Cells Few HPF (Negative); Mucus Moderate (Negative); Other Cells Few Yeast (Negative); RBC >50 HPF (0-2)
[2024-02-28 15:56] VITALS: BP 121/54; PULSE 64; RESP 16; TEMP 37.2; O2SAT 99
[2024-02-28] MEDS: metFORMIN 500 MG TAB PO (17:33)
[2024-02-28] MEDS: Gabapentin 300 MG CAP 1500 MG PO (20:01)
[2024-02-28] MEDS: Rosuvastatin 20 MG TAB PO (20:02)
[2024-02-28] MEDS: Enoxaparin 40 MG/0.4 ML SYR SC (20:02)
[2024-02-28] MEDS: Insulin Glargine 300 UNITS/3 ML PEN 48 UNITS SC (20:04)
[2024-02-28 20:24] VITALS: BP 106/71; PULSE 70; RESP 16; TEMP 36.8; O2SAT 95
[2024-02-28] MEDS: oxyCODONE 15 MG TAB PO (21:39)
[2024-02-28] MEDS: Acetaminophen 325 MG TAB 650 MG PO (21:39)
[2024-02-28] MEDS: diphenhydrAMINE 25 MG CAP PO (21:39)
[2024-02-28] MEDS: Melatonin 3 MG TAB 9 MG PO (21:40)
[2024-02-29 03:04] VITALS: BP 115/61; PULSE 58; RESP 16; TEMP 36.4; O2SAT 96
[2024-02-29 04:20] VITALS: BP 108/46; PULSE 53; RESP 14; TEMP 36.3; O2SAT 97
[2024-02-29] MEDS: CEFEPIME 2 GM in Normal Saline 100 ML IVPB ×3 (04:24→20:18)
[2024-02-29] MEDS: Normal Saline Flush 10 ML SYR IVP ×4 (04:25→20:19)
[2024-02-29 06:31] LABS: ALT 17 U/L (16-63); AST 17 U/L (15-37); Albumin 2.2 g/dL (3.4-5.0); Alkaline Phosphatase 61 U/L (46-116); Anion Gap 7.8 mmol/L (3-11); BUN 35 mg/dL (7-18); Bilirubin, Total 0.23 mg/dL (0.2-1.0); CO2 27.2 mmol/L (21.0-32.0); CREATININE 1.2 mg/dL (0.70-1.30); Calcium 8.9 mg/dL (8.5-10.1); Chloride 104 mmol/L (98-107); Estimated GFR 63.85 (mL/min/1.73m2); Glucose 106 mg/dL (74-106); Potassium 4.6 mmol/L (3.5-5.1); Sodium 139 mmol/L (136-145); Total Protein 6.4 g/dL (6.4-8.2)
[2024-02-29 06:43] LABS: Abs Immature Grans 0.14 10^3/uL (0.0-0.06); Absolute Basophil Count 0.14 10^3/uL (0.0-0.2); Absolute Eosinophil Count 0.75 10^3/uL (0.0-0.7); Absolute Lymphocyte Count 2.24 10^3/uL (1.2-3.4); Absolute Monocyte Count 0.67 10^3/uL (0.1-0.8); Basophils % 1.1 %; Eosinophils % 5.8 %; HCT 31.5 % (40.0-50.0); Immature Grans % 1.1 %; Lymphocytes % 17.3 %; MCHC 31.7 % (32.0-36.0); MCV 88 fL (80-95); MPV 10.3 fL (8.0-11.0); Monocytes % 5.2 %; Neutrophils % 69.5 %; RBC 3.57 10^6/uL (4.36-5.78); RDW 15.1 % (11.8-14.1); RDW-SD 48.5 fL; WBC 12.96 10^3/uL (4.4-10.8)
[2024-02-29 06:52] LABS: Absolute Neutrophil Count 9.01 10^3/uL (1.2-6.7)
[2024-02-29 07:02] LABS: Platelet Count 841 10^3/uL (130-400); RBC Morphology Normal
[2024-02-29] MEDS: Ezetimibe 10 MG TAB PO (08:55)
[2024-02-29] MEDS: Pantoprazole 40 MG TABCR PO (08:56)
[2024-02-29] MEDS: Lisinopril 2.5 MG TAB PO (08:56)
[2024-02-29] MEDS: Clopidogrel 75 MG TAB PO (08:56)
[2024-02-29] MEDS: Cholecalciferol (Vitamin D3) 1,000 UNIT TAB 2000 UNITS PO (08:56)
[2024-02-29] MEDS: Gabapentin 300 MG CAP 900 MG PO (08:56)
[2024-02-29] MEDS: Docusate Sodium 100 MG CAP PO ×2 (08:56→20:20)
[2024-02-29] MEDS: Aspirin 81 MG CHEW PO (08:56)
[2024-02-29] MEDS: Insulin Aspart 300 UNITS/3 ML PEN 6 UNITS SC ×3 (09:21→17:21)
[2024-02-29 09:32] VITALS: BP 128/83; PULSE 84; RESP 16; TEMP 36.5; O2SAT 96
--- NOTE | 2024-02-29 09:36 | PGE_ITS ---
Date of Service Date of service: 02/29/24 Time of Service: 09:36 Assessment and Plan Assessment and plan (1) Diabetic infection of right foot: Status: Acute Assessment and plan: -Patient presented due to worsening despite outpatient antibiotic therapy with increasing WBC count. -History of MRSA (in skin wound on chest). At risk for pseudomonas given DM wound on foot. -Preliminary wound cultures growing staph species (not aureus), and yeast -Micro has been asked to speciate yeast, will discuss with infectious disease on recommendation for treatment regimen once additional information is available -Has been on cefepime and vancomycin we will continue pending wound/surgical cultures -Ortho and podiatry were unavailable upon patient admission, was ultimately seen by orthopedic surgery on 02/22/2024 and taken to the OR on 02/23/2024 and is now POD #4 from irrigation and debridement of the right forefoot, right hindfoot, and large tarsal head resection of third and fourth metatarsals -patient is now POD #2 from wound closure of right forefoot wound -Lateral hindfoot wound apparently with more drainage as compared to previous day, concern for increasing complexity of wound also in combination of bilateral femoral arteries stenosis and poor blood supply; orthopedic surgeon will discuss with podiatry tomorrow 02/28/2024 to discuss best course of action and potential need for involvement with vascular surgery intervention 02.27.23 My feeling remains that Mr. Galeano would benefit from a transfer to a higher level of care for evaluation by a Wound Care Physician, Vascular, ID, and Plastics. I have reached out to Dr. Robles of the Podiatry service but have not heard back yet in regards to wound healing recommendations. SWAB; RIGHT LATERAL HINDFOOT Organism 1 Staphylococcus haemolyticus GROWTH RARE GROWTH Organism 2 YEAST GROWTH RARE GROWTH Stap haem Result Ciprofloxacin R Gentamicin R Trimethoprim/Sulfamethoxazole R Erythromycin R Oxacillin R Vancomycin S Gram Stain Final 02/23/24-1209 GRAM STAIN No White Blood Cells No Bacteria Seen BONE; 3RD METATARSAL HEAD Organism 1 Staphylococcus epidermidis GROWTH RARE GROWTH Organism 2 YEAST GROWTH RARE GROWTH Stap epid Result Ciprofloxacin R Gentamicin S Trimethoprim/Sulfamethoxazole R Erythromycin R Oxacillin R Vancomycin S Gram Stain Final 02/23/24-1208 GRAM STAIN Rare White Blood Cells No Bacteria Seen SWAB; RIGHT FOREFOOT RARE MIXED GRAM POSITIVE ANNIKA CONSISTENT WITH SKIN ORGANISMS PRESENT. Organism 1 ENTEROBACTER CLOACAE COMPLEX GROWTH RARE GROWTH Organism 2 YEAST GROWTH RARE GROWTH Organism 3 Gram positive annika, mixed GROWTH RARE GROWTH Ent maria co Result Cefazolin R Ceftazidime S CEFTRIAXONE S Ciprofloxacin I Gentamicin S Imipenem S Levofloxacin I Tobramycin S Trimethoprim/Sulfamethoxazole R Piperacillin/Tazobactam S Will restart Cefepime. 02/29/24 Pt does show some mild yeast growth on cultures. Pt does appear stable and considering the possible s/e of yeast medications, I will hold off for now. My plan is to d/w ID over the phone on Saturday. WBC is elevated but stable (2) Type 2 diabetes mellitus: Status: Acute Assessment and plan: -A1c 6.1% in November, which represents overly aggressive control given his age and comorbities. -Will continue outpatient medication with lowered doses here 02.28.24 Pt's last BG readings are 96/177/254/274. C/w current medical regimen (3) 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 of cerebrovascular accident: Status: Acute Assessment and plan: -Continue ASA and high intensity statin. -He is done with 21 days of DAPT, but according to PCP he is still on DAPT related to his ongoing thrombocytosis pending hematology evaluation. -Will continue clopidogrel as well for now. -Hemeparesis and wounds, amputations affecting his ADLs. -He may need additional rehabilitation or addition help at home. He does not want to go back to [facility]. (4) Depression: Status: Chronic Assessment and plan: -being treated with fluoxetine. Unfortantely this medication can affect his clopidogrel. -will change to sertraline, but wait until discharge as otherwise will get too much overlap in effect given fluoxetine's long half life. 02.27.23 Lovenox 1/2 life for active metabolite is appx 10 days according to [facility]. Will hold for a bit longer (5) DVT prophylaxis: Assessment and plan: -High risk, enoxaparin (6) Edema: Status: Acute Assessment and plan: -Exact etiology is unknown but I do have some concerns for CHF. Will check BNP and consider echo is one hasn't been done in the past. My guess is that he had an echo recently 2/2 CVA work up. -TTE without acute findings -albumin low at 2.0 (7) Thrombocytosis: Status: Acute Assessment and plan: -Pt continues to have elevations in his platelets. -Pt does have an appt with Home Health Care Respiratory Therapist which is pending 02.27.23 pending labs for am 02.29.24 Latest platelet count is 841 (8) Infrarenal abdominal aortic aneurysm (AAA) without rupture: Assessment and plan: -abd/pelvic CT 10/20/23 ABDOMINAL AORTA: The abdominal aorta is atherosclerotic and there is a fusiform infrarenal abdominal aortic aneurysm below the level the inferior mesenteric artery takeoff point, this exhibiting maximum diameter of 3.2 cm. The common iliac arteries are calcified and minimally prominent. Will need surveillance at the discretion of the PCP Subjective Subjective Interval history since last seen: Pt seen and examined in his room this am. POC d/w pt as well as bedside nurse during MDR. Pt does have calcaneal pain with ambulation Exam Narrative Exam Narrative: Well-appearing older gentleman laying in bed in no acute distress, ANO x 4, heart regular rhythm, lungs clear to auscultation bilaterally, abdomen soft, nontender, nondistended, status post left AKA, right fore foot and hindfoot with wound VAC in place. Mkceon does show some sedimentation in urine Objective Last Vital Signs Temp 36.5 C 02/29/24 09:32 Pulse 84 02/29/24 09:32 Resp 16 02/29/24 09:32 BP 128/83 02/29/24 09:32 Pulse Ox 96 02/29/24 09:32 Laboratory Results - last 24 hr 02/28/24 02/29/24 14:30 05:36 WBC 12.96 H RBC 3.57 L Hgb 10.0 L Hct 31.5 L MCV 88 MCH 28.0 MCHC 31.7 L RDW 15.1 H Plt Count 841 H* MPV 10.3 Immature Gran % 1.1 Neutrophils % 69.5 Lymphocytes % 17.3 Monocytes % 5.2 Eosinophils % 5.8 Basophils % 1.1 Nucleated RBC % 0.0 Absolute Neutrophils 9.01 H Absolute Lymphocytes 2.24 Absolute Monocytes 0.67 Absolute Eosinophils 0.75 H Absolute Basophils 0.14 RBC Morphology Normal Sodium 139 Potassium 4.6 Chloride 104 Carbon Dioxide 27.2 Anion Gap 7.8 BUN 35 H Creatinine 1.2 Est GFR (CKD-EPI 2020) 63.85 Glucose 106 Calcium 8.9 Total Bilirubin 0.23 AST 17 ALT 17 Alkaline Phosphatase 61 Total Protein 6.4 Albumin 2.2 L Urine Color Dark Yellow Urine Clarity Cloudy Urine pH 5.5 Ur Specific Mccamey 1.025 Urine Protein 100 H Urine Ketones Negative Urine Blood Large H Urine Nitrite Negative Urine Bilirubin Negative Urine Urobilinogen 0.2 Ur Leukocyte Esterase Trace H Urine RBC >50 H Urine WBC 10-20 H Ur Epithelial Cells Few Urine Crystals Negative Urine Bacteria Few Urine Casts 20-30 RBC Urine Mucus Moderate Urine Other Few Yeast Ur Culture Indicated? Yes Urine Glucose 100 H Time Spent with Patient Time Spent with Patient: 25-34 minutes Time was spent: preparing to see the patient(eg.review tests), ordering medications,tests, procedures, referring, communicating with other health care attendant, indepentently interpreting results, counseling the patient and care coordination
[2024-02-29] MEDS: Insulin Aspart 300 UNITS/3 ML PEN SC ×2 (12:31→17:20)
[2024-02-29] MEDS: diazePAM 5 MG TAB PO (13:02)
--- NOTE | 2024-02-29 13:20 | PT.INTREAT ---
PT Notes Visit Reasons: Diabetic foot wound, Osteomyelitis Physical Therapy Inpatient Treatment Note Date: 02/29/2024 Precautions: Fall. ON CONTACT PRECAUTIONS. Residual L-sided hemiparesis. 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 L transtibial prosthesis and R spiral AFO (unable to don R spiral AFO at this time) in place when OOB. NWB on the R LE but may minimally weight bear during essential transfers only per Dr. Rendon. L UE elevated on 2 pillows for edema reduction. SUBJECTIVE: Pt reports he just got out of bed to commode with use of STEDY lift and 2 staff earlier this monrning and it hurt his heel so much he was brought to tears. ( Staff confirm he was up to the commode around 730am). Pt continues with apprehension about WB on his Right LE d/t severity of pain he feels when his foot is down off the bed. Objective: General Observation: Pt presented semireclined in bed using his Theraband as this PT entered the room. He was noted to be down in the bed with RLE ER at hip with pillow under calf and Blue heel float boot in place. Noted ecchymotic area to dorwum of foot consistent with placement of strap to heel float boot. Strap adjusted to ensure no contact with skin. Mental Status: Alert and oriented as to person, place, time, and purpose. Pt joking with this PT although ended session with somber affect after discussing his uncertain future. Signs of depression due to uncertainty of his overall condition observed. Pain: As above Vital Signs: Closely monitored by nursing staff Bed Mobility/Transfers: Minimal cueing provided for use of B hands as needed for support, movement sequence, AD management, and posture to reduce fall risk and minimize pain report. Careful attention was given to the R LE throughout all this movement to minimize symptom exacerbation and unnecessary shear. Blue foam on at all times, Placed wedge to lateral aspect of RLE to reduce ER of hip to promote midline positioning at end of session. repositioning in bed with use of trapeze , rails.Max A of 2 to boost up in bed 1/4 turns with use of rail min A to left and max A to right Gait: DEFERRED Balance: deferred d/t pt pain level despite pain medication ASSESSMENT: Patient with stage 1 pressure injury of the R foot and osteomyelitis of metatarsal bone of R foot with contamination caused by pathogen staphylococcus epidermidis, patient is S/P 3rd and 4th metatarsal head resection with initial debridement on 02/23/2024 and closure on 02/25/2024. Patient also with staphylococcus haemolyticus infection on the R lateral hindfoot. Healing on wounds stunted by B femoral artery stenosis. Treatment today included caregiver training with safe patient handling and positioning of RLE with use of wedge to lateral aspect of RLE to reduce ER and promote unweighting of R heel. Therex with Red Theraband : Bicep curls, shoulder flexion, abduction and PNF pattern of shoulder elevation, abduction and ERwith RUE and AAROM to LUE. Pt also performed pull up with sheet tied to foot of bed x 5 reps. Pt has to adjust the bands throughout reps when HOB is too high. Pt education provide for reducing angle of HOB to promote femoral A blood flow/ reduce restriction by keeping HOB lower intermittently throughout day and during UE band exercises. Pt limited by pain in right heel with dependent position . Pt agreeable to transition from bed to commode then to recliner the next time he has to use the commode. Discussed with Nursing staff to carryover to next day as well and to notify PT if available to assist. -Commode height was elevated by this PT in prep for next attempt. Pt also perform ed hip and knee flexion x 10 reps BLE, SLR with (+) quad lag on right noted . PLAN OF CARE/TREATMENT PLAN: 1-2x/day with treatment focus on: 1. Increasing independence of bed<>bedside commode transfer as tolerated 2. Maximizing B UE/LE strength using bed level exercises 3. Optimizing trunk stability/core strength using bed level/seated exercises 4. Exploring alternative transfer techniques that will provide the least WB and shear on the R foot, e.g. slide board transfer 5. Assist with improving self-confidence and reliance to minimize long-term effects of depression on patient's motivation 6. Facilitate/expedite healing of wounds by doing gentle AROM/PROM exercises to B hips and knees to increase circulation DISCHARGE RECOMMENDATIONS: [] Home with no services [] [] Home with services [specify] [] Home with outpatient PT [] [X] SNF for continued rehabilitation. Patient will benefit from long-term facility placement for continued skilled physical therapy services in order to progress mobility level, strength, and balance in preparation for a safe discharge to home. [] Nursing Home Care [] [] SNF versus LTC based on ability to participate and progress [] TREATMENT CODE/TIME: 98516 x 24 minutes for 2 units, 40443 x 15 minutes for 1 unit/1100?1139.
[2024-02-29] MEDS: Protein Nutritional Supplement 16 GM 1 OUNCE PACKET PO (14:40)
[2024-02-29] MEDS: VANCOMYCIN/WATER (PEG) 1.75 GM/350 ML BAG IVPB (14:41)
[2024-02-29 16:12] VITALS: BP 127/71; PULSE 62; RESP 16; TEMP 36.5; O2SAT 97
[2024-02-29] MEDS: metFORMIN 500 MG TAB PO (17:20)
[2024-02-29 19:13] VITALS: BP 130/66; PULSE 74; RESP 17; TEMP 36.7; O2SAT 97
[2024-02-29] MEDS: Rosuvastatin 20 MG TAB PO (20:20)
[2024-02-29] MEDS: Gabapentin 300 MG CAP 1500 MG PO (20:20)
[2024-02-29] MEDS: Enoxaparin 40 MG/0.4 ML SYR SC (20:21)
[2024-02-29] MEDS: Insulin Glargine 300 UNITS/3 ML PEN 48 UNITS SC (20:21)
[2024-02-29] MEDS: oxyCODONE 15 MG TAB PO (22:20)
[2024-02-29] MEDS: Acetaminophen 325 MG TAB 650 MG PO (22:20)
[2024-02-29] MEDS: Melatonin 3 MG TAB 9 MG PO (22:21)
[2024-02-29] MEDS: diphenhydrAMINE 25 MG CAP PO (22:22)
[2024-02-29] MEDS: Nystatin POWDER 60 GM JAR TP (22:22)
[2024-02-29 22:39] VITALS: BP 111/62; PULSE 74; RESP 18; TEMP 36.9; O2SAT 95
[2024-03-01] VITALS (7 sets, daily range): BP systolic 105–137; BP diastolic 51–65; PULSE 56–75; RESP 16–20; TEMP 36.1–37.1; O2SAT 95–97
[2024-03-01] MEDS: CEFEPIME 2 GM in Normal Saline 100 ML IVPB ×3 (04:13→20:37)
[2024-03-01] MEDS: Normal Saline Flush 10 ML SYR IVP ×6 (04:14→20:38)
[2024-03-01] MEDS: Ezetimibe 10 MG TAB PO (08:04)
[2024-03-01] MEDS: Lisinopril 2.5 MG TAB PO (08:04)
[2024-03-01] MEDS: Cholecalciferol (Vitamin D3) 1,000 UNIT TAB 2000 UNITS PO (08:04)
[2024-03-01] MEDS: Gabapentin 300 MG CAP 900 MG PO (08:04)
[2024-03-01] MEDS: Pantoprazole 40 MG TABCR PO (08:04)
[2024-03-01] MEDS: Aspirin 81 MG CHEW PO (08:04)
[2024-03-01] MEDS: Docusate Sodium 100 MG CAP PO ×2 (08:04→20:39)
[2024-03-01] MEDS: Clopidogrel 75 MG TAB PO (08:05)
[2024-03-01] MEDS: Insulin Aspart 300 UNITS/3 ML PEN SC ×3 (08:05→17:29)
[2024-03-01] MEDS: Insulin Aspart 300 UNITS/3 ML PEN 6 UNITS SC ×3 (08:06→17:30)
[2024-03-01] MEDS: Nystatin OINT 15 GM TUBE TP (08:11)
[2024-03-01] MEDS: Nystatin POWDER 60 GM JAR TP ×3 (08:12→20:37)
--- NOTE | 2024-03-01 12:00 | PT.INTREAT ---
PT Notes Visit Reasons: Diabetic foot wound, Osteomyelitis Physical Therapy Inpatient Treatment Note Date: 02/29/2024 Precautions: Fall. ON CONTACT PRECAUTIONS. Residual L-sided hemiparesis. 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 L transtibial prosthesis and R spiral AFO (unable to don R spiral AFO at this time) in place when OOB. NWB on the R LE but may minimally weight bear during essential transfers only per Dr. Rendon. L UE elevated on 2 pillows for edema reduction. SUBJECTIVE: Pt reports he just got out of bed to recliner with use of buzz lift and 2 staffapprox 845am. Pt wanted to be out of bed but it hurts too much to stand on the heel so Nursing used the buzz lift. Pt continues with apprehension about WB on his Right LE d/t severity of pain he feels when his foot is down off the bed. Pt agreeable to participate in UE and LE therapeutic exercises while in chair Objective: General Observation: Pt presented reclined in chair with RLE elevated on 1 pillow and his foot boot pressing into the top of his foot. with Noted ecchymotic area to medial dorsum of foot consistent with placement of strap to heel float boot and new areaextending proximally toward lateral aspect. Due to the length of his legs the boot hangs from his foot as it is not supported while in the chair Mental Status: Alert and oriented as to person, place, time, and purpose. Pt joking with this PT although ended session with somber affect after discussing his uncertain future. Signs of depression due to uncertainty of his overall condition observed. Pain: As above Vital Signs: Closely monitored by nursing staff Bed Mobility/Transfers: Minimal cueing provided for use of B hands as needed for support, movement sequence, AD management, and posture to reduce fall risk and minimize pain report. Careful attention was given to the R LE throughout all this movement to minimize symptom exacerbation and unnecessary shear. Blue foam boot on at all times, recline sit pull to upright seating with pillow under plantar aspect of right foot/boot . Pt unable to let go with right hand to sustain posture to promote core activation and trunk control trial positioning in recliner with use of foam calf cushion to float heel while in chair and eliminate pressure from the straps across the dorsum of his foot to promote skin integrity. (Pt reported comfort and allowed for pressure relief to his buttock area with use) Gait: DEFERRED Balance: static sit with 1 UE support at edge of chair Therapeutic exercise: seated with back support right UE : shoulder flexion, horizontal abduction, abduction, bicep curls, tricep extension with shoulder flexion. with 3# weight LUE: bicep curls 3 reps with 2# cuff weight performed between RUE exercises, AAshoulder flexion , PROm abduction elbow extension and supination RLE SLR5 reps x 2 sets, SAQ with pillow under knee LLE SLR LAQ ASSESSMENT: Patient with stage 2 pressure injury of the R foot and osteomyelitis of metatarsal bone of R foot with contamination caused by pathogen staphylococcus epidermidis, patient is S/P 3rd and 4th metatarsal head resection with initial debridement on 02/23/2024 and closure on 02/25/2024. Patient also with staphylococcus hemolyticus infection on the R lateral hindfoot. Healing on wounds stunted by B femoral artery stenosis. Treatment today included caregiver training with safe patient handling and positioning of RLE with use of wedge to lateral aspect of RLE to reduce ER and promote unweighting of R heel when in bed and use of heel float cushion instead of pillows under calf to promote heel offloading in chair and bed. Pt education provide for reducing angle of HOB to promote femoral A blood flow/ reduce restriction by keeping HOB lower intermittently throughout day and during UE band exercises. Pt limited by pain in right heel with dependent position . . -Commode height was elevated by this PT in prep for next attempt.( commode transfer has not been performed since adjustment made) . - bed control was moved to the right side of turkish rubber tips to be placed on commode and maintenance is looking into different trapeze (longer) to allow handle to be further forward over pt. Current position is back to far toward his head when HOB is elevated. PLAN OF CARE/TREATMENT PLAN: 1-2x/day with treatment focus on: 1. Increasing independence of bed<>bedside commode transfer as tolerated 2. Maximizing B UE/LE strength using bed level exercises 3. Optimizing trunk stability/core strength using bed level/seated exercises 4. Exploring alternative transfer techniques that will provide the least WB and shear on the R foot, e.g. slide board transfer 5. Assist with improving self-confidence and reliance to minimize long-term effects of depression on patient's motivation 6. Facilitate/expedite healing of wounds by doing gentle AROM/PROM exercises to B hips and knees to increase circulation DISCHARGE RECOMMENDATIONS: [] Home with no services [] [] Home with services [specify] [] Home with outpatient PT [] [X] SNF for continued rehabilitation. Patient will benefit from long term facility placement for continued skilled physical therapy services in order to progress mobility level, strength, and balance in preparation for a safe discharge to home. [] [facility]n Care [] [] SNF versus LTC based on ability to participate and progress [] TREATMENT CODE/TIME: 26972 x 17 minutes for 1 units, 65527 x 25 minutes for 2 unit/1101?1143.
--- NOTE | 2024-03-01 14:05 | PGE_ITS ---
Date of Service Date of service: 03/01/24 Time of Service: 14:05 Assessment and Plan Assessment and plan (1) Diabetic infection of right foot: Status: Acute Assessment and plan: -Patient presented due to worsening despite outpatient antibiotic therapy with increasing WBC count. -History of MRSA (in skin wound on chest). At risk for pseudomonas given DM wound on foot. -Preliminary wound cultures growing staph species (not aureus), and yeast -Micro has been asked to speciate yeast, will discuss with infectious disease on recommendation for treatment regimen once additional information is available -Has been on cefepime and vancomycin we will continue pending wound/surgical cultures -Ortho and podiatry were unavailable upon patient admission, was ultimately seen by orthopedic surgery on 02/22/2024 and taken to the OR on 02/23/2024 and is now POD #4 from irrigation and debridement of the right forefoot, right hindfoot, and large tarsal head resection of third and fourth metatarsals -patient is now POD #2 from wound closure of right forefoot wound -Lateral hindfoot wound apparently with more drainage as compared to previous day, concern for increasing complexity of wound also in combination of bilateral femoral arteries stenosis and poor blood supply; orthopedic surgeon will discuss with podiatry tomorrow 02/28/2024 to discuss best course of action and potential need for involvement with vascular surgery intervention 02.27.23 My feeling remains that Mr. Galeano would benefit from a transfer to a higher level of care for evaluation by a Wound Care Physician, Vascular, ID, and Plastics. I have reached out to Dr. Robles of the Podiatry service but have not heard back yet in regards to wound healing recommendations. SWAB; RIGHT LATERAL HINDFOOT Organism 1 Staphylococcus haemolyticus GROWTH RARE GROWTH Organism 2 YEAST GROWTH RARE GROWTH Stap haem Result Ciprofloxacin R Gentamicin R Trimethoprim/Sulfamethoxazole R Erythromycin R Oxacillin R Vancomycin S Gram Stain Final 02/23/24-1209 GRAM STAIN No White Blood Cells No Bacteria Seen BONE; 3RD METATARSAL HEAD Organism 1 Staphylococcus epidermidis GROWTH RARE GROWTH Organism 2 YEAST GROWTH RARE GROWTH Stap epid Result Ciprofloxacin R Gentamicin S Trimethoprim/Sulfamethoxazole R Erythromycin R Oxacillin R Vancomycin S Gram Stain Final 02/23/24-1208 GRAM STAIN Rare White Blood Cells No Bacteria Seen SWAB; RIGHT FOREFOOT RARE MIXED GRAM POSITIVE ANNIKA CONSISTENT WITH SKIN ORGANISMS PRESENT. Organism 1 ENTEROBACTER CLOACAE COMPLEX GROWTH RARE GROWTH Organism 2 YEAST GROWTH RARE GROWTH Organism 3 Gram positive annika, mixed GROWTH RARE GROWTH Ent maria co Result Cefazolin R Ceftazidime S CEFTRIAXONE S Ciprofloxacin I Gentamicin S Imipenem S Levofloxacin I Tobramycin S Trimethoprim/Sulfamethoxazole R Piperacillin/Tazobactam S Will restart Cefepime. 02/29/24 Pt does show some mild yeast growth on cultures. Pt does appear stable and considering the possible s/e of yeast medications, I will hold off for now. My plan is to d/w ID over the phone on Saturday. WBC is elevated but stable 03/01/24 My plan is to try and reach out to Podiatry to see if they have any wound care recommendations as well as reach out to Ortho. CW abx for now. Depending on what Podiatry says, will d/w ID as well (2) Type 2 diabetes mellitus: Status: Acute Assessment and plan: -A1c 6.1% in November, which represents overly aggressive control given his age and comorbities. -Will continue outpatient medication with lowered doses here 02.28.24 Pt's last BG readings are 96/177/254/274. C/w current medical regimen (3) 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 of cerebrovascular accident: Status: Acute Assessment and plan: -Continue ASA and high intensity statin. -He is done with 21 days of DAPT, but according to PCP he is still on DAPT related to his ongoing thrombocytosis pending hematology evaluation. -Will continue clopidogrel as well for now. -Hemeparesis and wounds, amputations affecting his ADLs. -He may need additional rehabilitation or addition help at home. He does not want to go back to [facility]. (4) Depression: Status: Chronic Assessment and plan: -being treated with fluoxetine. Unfortantely this medication can affect his clopidogrel. -will change to sertraline, but wait until discharge as otherwise will get too much overlap in effect given fluoxetine's long half life. 02.27.23 Lovenox 1/2 life for active metabolite is appx 10 days according to [facility]. Will hold for a bit longer 03.01.23 Above statement should say fluoxetine instead of lovenox (5) DVT prophylaxis: Assessment and plan: -High risk, enoxaparin (6) Edema: Status: Acute Assessment and plan: -Exact etiology is unknown but I do have some concerns for CHF. Will check BNP and consider echo is one hasn't been done in the past. My guess is that he had an echo recently 2/2 CVA work up. -TTE without acute findings -albumin low at 2.0 03.01.24 Added protein drinks to his meals (7) Thrombocytosis: Status: Acute Assessment and plan: -Pt continues to have elevations in his platelets. -Pt does have an appt with Director Of [facility] which is pending 02.27.23 pending labs for am 02.29.24 Latest platelet count is 841 (8) Infrarenal abdominal aortic aneurysm (AAA) without rupture: Assessment and plan: -abd/pelvic CT 10/20/23 ABDOMINAL AORTA: The abdominal aorta is atherosclerotic and there is a fusiform infrarenal abdominal aortic aneurysm below the level the inferior mesenteric artery takeoff point, this exhibiting maximum diameter of 3.2 cm. The common iliac arteries are calcified and minimally prominent. Will need surveillance at the discretion of the PCP Subjective Subjective Interval history since last seen: Pt seen and examined in his room this afternoon. Pt is asking if/when Podiatry is coming to see him. POC d/w pt as well as with bedside nurse during MDR Exam Narrative Exam Narrative: Well-appearing older gentleman laying in bed in no acute distress, ANO x 4, heart regular rhythm, lungs clear to auscultation bilaterally, abdomen soft, nontender, nondistended, status post left AKA, right fore foot and hindfoot with wound VAC in place. Mckeon does show some sedimentation in urine Objective Last Vital Signs Temp 36.8 C 03/01/24 11:14 Pulse 65 03/01/24 11:14 Resp 18 03/01/24 11:14 BP 111/65 03/01/24 11:14 Pulse Ox 96 03/01/24 11:14 Time Spent with Patient Time Spent with Patient: 25-34 minutes Time was spent: preparing to see the patient(eg.review tests), referring, communicating with other health assurance services manager health care, indepentently interpreting results, counseling the patient and care coordination
[2024-03-01] MEDS: VANCOMYCIN/WATER (PEG) 1.75 GM/350 ML BAG IVPB (14:11)
[2024-03-01] MEDS: metFORMIN 500 MG TAB PO (17:29)
[2024-03-01] MEDS: Sertraline 50 MG TAB PO (20:39)
[2024-03-01] MEDS: Enoxaparin 40 MG/0.4 ML SYR SC (20:39)
[2024-03-01] MEDS: Gabapentin 300 MG CAP 1500 MG PO (20:39)
[2024-03-01] MEDS: Rosuvastatin 20 MG TAB PO (20:42)
[2024-03-01] MEDS: diphenhydrAMINE 25 MG CAP PO (23:35)
[2024-03-01] MEDS: Acetaminophen 325 MG TAB 650 MG PO (23:36)
[2024-03-01] MEDS: Melatonin 3 MG TAB 9 MG PO (23:37)
[2024-03-01] MEDS: Insulin Glargine 300 UNITS/3 ML PEN 48 UNITS SC (23:37)
[2024-03-01] MEDS: oxyCODONE 15 MG TAB PO (23:37)
[2024-03-02 03:59] VITALS: BP 108/50; PULSE 56; RESP 18; TEMP 36.9; O2SAT 97
[2024-03-02] MEDS: CEFEPIME 2 GM in Normal Saline 100 ML IVPB ×3 (04:43→20:39)
[2024-03-02 06:50] LABS: CREATININE 1.4 mg/dL (0.70-1.30); Estimated GFR 53.07 (mL/min/1.73m2); Vancomycin, Random 18.2 ug/mL
[2024-03-02 07:35] VITALS: BP 109/55; PULSE 61; RESP 18; TEMP 36.6; O2SAT 98
--- NOTE | 2024-03-02 08:49 | PDOC.CMPRO ---
Date of service: 03/02/24 Time of Service: 08:49 Care Management Progress Note Progress Note Text Progress Note Text: CM was unable to meet with Patricia in person today as he was off the unit for testing this morning and was receiving care this afternoon. Patricia continues to be treated for osteomyelitis. Dr. Robles from Podiatry saw him today and is recommending transfer to tertiary care for vascular studies and possible surgery. Unfortunately attempts have been made for the past 2 weeks to have patricia transferred . Initially, he refused, preferring to remain at [facility]. he later agreed but [facility] and [facility] have had no beds. His final antibiotic regimen has not been established and his foot appears to be getting worse, with more areas of necrosis. Per provider, Patricia is understandably upset and does not feel that he is getting the necessary care for his foot. Discharge Potential Discharge Needs: PCP F/U Appt Anticipated Barriers to Discharge: Medical Status Patient/Family Education Needs: Review discharge instructions, discuss Ask Me Three Transportation: Private vehicle Plan: Anticipate Patricia will be transitioned to -1 to complete his IV antibiotic therapy when medically stable. Conversely, he may be transferred to a tertiary care center if a bed becomes available. He will follow up with his surgeon and PCP and plan of care . CM will follow and continue to assess for discharge needs. Social Determinants of Health Screening Social Determinants of Health last assessed: 03/02/24 Will the Patient Participate in the Screening?: Yes Do you worry about having a steady place to live?: no Problems where you live: no known problems In the past 12 months, have you had to go without electric, gas, oil or water in your home?: no Have you or anyone in your house had to go without enough food to eat?: no Has lack of transportation kept you from medical appointments or from doing things needed for daily living?: no Has anyone in your life made you feel unsafe or unsupported?: no How hard is it for you to pay for the very basics like food, housing, medical care, and heating? Would you say it is:: Somewhat hard (concerned about medical bills; has [facility] financial assistance) Do you want help finding or keeping work or a job?: I do not need or want help If for any reason you need help with day-to-day activities such as bathing, preparing meals, shopping, managing finances, etc., do you get the help you need?: I get all the help I need (feels well supported at home) How often do you feel lonely or isolated from those around you?: Sometimes Do you speak a language other than Portuguese at home?: No Does the patient want assistance with any of the above?: No Health Related Social Needs Health related social needs: problems related to housing/economic circumstances (Z59.89) and feeling lonely/isolated (Z60.8)
[2024-03-02] MEDS: Pantoprazole 40 MG TABCR PO (09:17)
[2024-03-02] MEDS: Gabapentin 300 MG CAP 900 MG PO (09:17)
[2024-03-02] MEDS: Cholecalciferol (Vitamin D3) 1,000 UNIT TAB 2000 UNITS PO (09:17)
[2024-03-02] MEDS: Clopidogrel 75 MG TAB PO (09:18)
[2024-03-02] MEDS: Docusate Sodium 100 MG CAP PO ×2 (09:18→20:40)
[2024-03-02] MEDS: Aspirin 81 MG CHEW PO (09:18)
[2024-03-02] MEDS: Lisinopril 2.5 MG TAB PO (09:18)
[2024-03-02] MEDS: Insulin Aspart 300 UNITS/3 ML PEN SC ×3 (09:19→17:33)
[2024-03-02] MEDS: Insulin Aspart 300 UNITS/3 ML PEN 6 UNITS SC ×3 (09:19→17:33)
[2024-03-02] MEDS: Normal Saline Flush 10 ML SYR IVP ×3 (09:20→20:43)
[2024-03-02] MEDS: Ezetimibe 10 MG TAB PO (09:20)
[2024-03-02] MEDS: Nystatin POWDER 60 GM JAR TP ×3 (09:20→20:41)
[2024-03-02] MEDS: Nystatin OINT 15 GM TUBE TP ×2 (09:22→20:41)
[2024-03-02 11:04] VITALS: BP 93/50; PULSE 62; RESP 18; TEMP 36.6; O2SAT 97
--- NOTE | 2024-03-02 11:40 | DI.MRI_ITS ---
Exam(s) MR LOWER EXTREMITY RT WO/W EXAM: MR LOWER EXTREMITY RT WO/W CLINICAL HISTORY: osteomyelitis/surgery. TECHNIQUE: Multiplanar multisequence MRI was performed. CONTRAST MATERIAL: IV Contrast: 20 mL of Dotarem contrast administered. COMPARISON: Plain films 02 March 2024 FINDINGS: BONES: Prior amputation of the toes and 2nd metatarsal head. Recent resection of the 3rd and 4th me tatarsal heads. There is edema at the distal aspects of the 3rd and 4th metatarsal heads. The findi ngs could be postsurgical or could represent osteomyelitis. Joints: No joint effusion identified. MUSCULOTENDINOUS STRUCTURES: Visualized portion of the planar fascia is unremarkable. The visualized intrinsic muscles and tendons of the foot are unremarkable. SOFT TISSUES: Edema throughout, greatest at the dorsum of the metatarsal region. No drainable collec tions. IMPRESSION: No drainable abscess collection. Mild edema enhance mint in the recent surgical resection sites at the heads of the 3rd and 4th metata rsals which could be reactive related to recent surgery versus osteomyelitis. DATA REPOSITORY:
--- NOTE | 2024-03-02 12:15 | DI.RAD_ITS ---
Exam(s) XR FOOT RT COMPLETE EXAM: XR FOOT RT COMPLETE CLINICAL HISTORY: osteomyelitis/surgery. TECHNIQUE: 2D digital imaging was performed. Three views. COMPARISON: CR XR FOOT RT COMPLETE from 02/16/[address] ABD AORTA CTA W RUNOFF from 02/21/2024 MR MR LOWER EXTREMITY RT WO/W from 03/02/2024 FINDINGS: BONES: The patient has undergone resection of the heads of the 3rd and 4th metatarsals since the prev ious plain films. No acute fracture is present. No bony destructive lesion is seen. JOINTS: No dislocation present. SOFT TISSUE: Normal. IMPRESSION: Status post resection of the heads of the 4th 3rd and 4th metatarsal heads. DATA REPOSITORY: RADIATION DOSE DELIVERED:
[2024-03-02] MEDS: diazePAM 5 MG TAB PO (12:38)
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
[2024-03-02] MEDS: Gadoterate meglumine 20 ML SYRINGE IVP (13:31)
--- NOTE | 2024-03-02 14:37 | PT.INTREAT ---
PT Notes Visit Reasons: Diabetic foot wound, Osteomyelitis Inpatient Physical Therapy Treatment Note [facility] Date: 03/02/24 PRECAUTIONS: Fall. ON CONTACT PRECAUTIONS. Residual L-sided hemiparesis. 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 L transtibial prosthesis and R spiral AFO (unable to don R spiral AFO at this time) in place when OOB. NWB on the R LE but may minimally weight bear during essential transfers only per Dr. Rendon. L UE elevated on 2 pillows for edema reduction. SUBJECTIVE: Suhail states that he is not in a very good place mentally. My had divorce papers served to me yesterday, and I just did not get good news about my right foot. Looks like I am headed for another BKA. I very much want to sit up in recliner. We just need to get me comfortable as I am unable to reposition myself. PM session: Not available, as he is downstairs for testing. OBJECTIVE: []? PAIN: right foot/heel. VITALS: ?monitored by nsg. Therapeutic Activities ([id number]): Direct one-on-one instruction in dynamic activities to improve functional performance. ? BED MOBILITY/TRANSFERS? Rolling L/R: min/mod A of 2. ? Bed-Chair: Luis Carlos lift.? Sat in recliner with pillows placed at right hip, left UE. Positioning wedge under LE's as well as pillow to keep pressure off of heel. He reported feeling relatively comfortable. Would like to sit up for a while. Provided skilled cues and instruction on performance and technique throughout.? ASSESSMENT:? tolerated session quite well. Was willing to engage in PT and try to help himself. He is trying to have a positive attitude. PLAN: continue to progress his strength and functional mobility to tolerance following PT POC. TREATMENT CODE/TIME: 25 min. [id number].
[2024-03-02 14:59] LABS: ESR 48 mm/hr (0-20)
[2024-03-02 15:20] LABS: C-Reactive Protein 0.92 mg/dL (<or=0.5)
[2024-03-02 15:22] VITALS: BP 115/47; PULSE 52; RESP 18; TEMP 37; O2SAT 94
--- NOTE | 2024-03-02 16:32 | W.PM.PROGNOT ---
Date of Service Date of service: 03/02/24 Time of Service: 16:33 Assessment and Plan Assessment and plan (1) Diabetic infection of right foot: Status: Acute Assessment and plan: -Patient presented due to worsening despite outpatient antibiotic therapy with increasing WBC count. -History of MRSA (in skin wound on chest). At risk for pseudomonas given DM wound on foot. -Preliminary wound cultures growing staph species (not aureus), and yeast -Micro has been asked to speciate yeast, will discuss with infectious disease on recommendation for treatment regimen once additional information is available -Has been on cefepime and vancomycin we will continue pending wound/surgical cultures -Ortho and podiatry were unavailable upon patient admission, was ultimately seen by orthopedic surgery on 02/22/2024 and taken to the OR on 02/23/2024 and is now POD #4 from irrigation and debridement of the right forefoot, right hindfoot, and large tarsal head resection of third and fourth metatarsals -patient is now POD #2 from wound closure of right forefoot wound -Lateral hindfoot wound apparently with more drainage as compared to previous day, concern for increasing complexity of wound also in combination of bilateral femoral arteries stenosis and poor blood supply; orthopedic surgeon will discuss with podiatry tomorrow 02/28/2024 to discuss best course of action and potential need for involvement with vascular surgery intervention 02.27.23 My feeling remains that Mr. Galeano would benefit from a transfer to a higher level of care for evaluation by a Wound Care Physician, Vascular, ID, and Plastics. I have reached out to Dr. Robles of the Podiatry service but have not heard back yet in regards to wound healing recommendations. SWAB; RIGHT LATERAL HINDFOOT Organism 1 Staphylococcus haemolyticus GROWTH RARE GROWTH Organism 2 YEAST GROWTH RARE GROWTH Stap haem Result Ciprofloxacin R Gentamicin R Trimethoprim/Sulfamethoxazole R Erythromycin R Oxacillin R Vancomycin S Gram Stain Final 02/23/24-1209 GRAM STAIN No White Blood Cells No Bacteria Seen BONE; 3RD METATARSAL HEAD Organism 1 Staphylococcus epidermidis GROWTH RARE GROWTH Organism 2 YEAST GROWTH RARE GROWTH Stap epid Result Ciprofloxacin R Gentamicin S Trimethoprim/Sulfamethoxazole R Erythromycin R Oxacillin R Vancomycin S Gram Stain Final 02/23/24-1208 GRAM STAIN Rare White Blood Cells No Bacteria Seen SWAB; RIGHT FOREFOOT RARE MIXED GRAM POSITIVE ANNIKA CONSISTENT WITH SKIN ORGANISMS PRESENT. Organism 1 ENTEROBACTER CLOACAE COMPLEX GROWTH RARE GROWTH Organism 2 YEAST GROWTH RARE GROWTH Organism 3 Gram positive annika, mixed GROWTH RARE GROWTH Ent maria co Result Cefazolin R Ceftazidime S CEFTRIAXONE S Ciprofloxacin I Gentamicin S Imipenem S Levofloxacin I Tobramycin S Trimethoprim/Sulfamethoxazole R Piperacillin/Tazobactam S Will restart Cefepime. 02/29/24 Pt does show some mild yeast growth on cultures. Pt does appear stable and considering the possible s/e of yeast medications, I will hold off for now. My plan is to d/w ID over the phone on Saturday. WBC is elevated but stable 03/01/24 My plan is to try and reach out to Podiatry to see if they have any wound care recommendations as well as reach out to Ortho. CW abx for now. Depending on what Podiatry says, will d/w ID as well 03/02/24 Plan reviewed from Podiatry and MRI and fims were reviewed. Pt is for surgical intervention in the AM (2) Type 2 diabetes mellitus: Status: Acute Assessment and plan: -A1c 6.1% in November, which represents overly aggressive control given his age and comorbities. -Will continue outpatient medication with lowered doses here 02.28.24 Pt's last BG readings are 96/177/254/274. C/w current medical regimen 03.02.24 BG have been slowly increasing. Will increase lantus to 51 (3) 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 of cerebrovascular accident: Status: Acute Assessment and plan: -Continue ASA and high intensity statin. -He is done with 21 days of DAPT, but according to PCP he is still on DAPT related to his ongoing thrombocytosis pending hematology evaluation. -Will continue clopidogrel as well for now. -Hemeparesis and wounds, amputations affecting his ADLs. -He may need additional rehabilitation or addition help at home. He does not want to go back to [facility] (4) Depression: Status: Chronic Assessment and plan: -being treated with fluoxetine. Unfortantely this medication can affect his clopidogrel. -will change to sertraline, but wait until discharge as otherwise will get too much overlap in effect given fluoxetine's long half life. 02.27.23 Lovenox 1/2 life for active metabolite is appx 10 days according to [facility]. Will hold for a bit longer 03.01.23 Above statement should say fluoxetine instead of lovenox 03/02/24 PT has been started on sertaline (5) Edema: Status: Acute Assessment and plan: -Exact etiology is unknown but I do have some concerns for CHF. Will check BNP and consider echo is one hasn't been done in the past. My guess is that he had an echo recently 2/2 CVA work up. -TTE without acute findings -albumin low at 2.0 03.01.24 Added protein drinks to his meals (6) Thrombocytosis: Status: Acute Assessment and plan: -Pt continues to have elevations in his platelets. -Pt does have an appt with Inhalation Therapy Teacher which is pending 02.27.23 pending labs for am 02.29.24 Latest platelet count is 841 Subjective Subjective Interval history since last seen: PT seen and examined in his room this afternoon. POC d/w pt as well as with podiatry and orthopaedic surgery. I once again attempted the pt to a higher level of care specifically [facility] and [facility] but was denied 2/2 bed availability. I also discussed the case with a Dr Todd (vascular) at [facility] who stated that this particular facility does not have podiatry or wound care. I did give the contact number to our Fishing [employer]essel Deck[employer] (Travis) to see if a plan could be made between the two of them Exam Narrative Exam Narrative: Well-appearing older gentleman laying in bed in no acute distress, ANO x 4, heart regular rhythm, lungs clear to auscultation bilaterally, abdomen soft, nontender, nondistended, status post left AKA, right fore foot and hindfoot with wound VAC in place. Mckeon does show some sedimentation in urine Objective Last Vital Signs Temp 37 C 03/02/24 15:22 Pulse 52 L 03/02/24 15:22 Resp 18 03/02/24 15:22 BP 115/47 L 03/02/24 15:22 Pulse Ox 94 03/02/24 15:22 Laboratory Results - last 24 hr 03/02/24 03/02/24 03/02/24 06:04 13:34 14:35 WBC Cancelled RBC Cancelled Hgb Cancelled Hct Cancelled MCV Cancelled MCH Cancelled MCHC Cancelled RDW Cancelled Plt Count Cancelled MPV Cancelled Immature Gran % Cancelled Neutrophils % Cancelled Band Neutrophils % Cancelled Lymphocytes % Cancelled Atypical Lymphs % Cancelled Monocytes % Cancelled Eosinophils % Cancelled Basophils % Cancelled Metamyelocytes % Cancelled Myelocytes % Cancelled Promyelocytes % Cancelled Other Cells % Cancelled Nucleated RBC % Cancelled Absolute Neutrophils Cancelled Absolute Lymphocytes Cancelled Absolute Monocytes Cancelled Absolute Eosinophils Cancelled Absolute Basophils Cancelled RBC Morphology Cancelled Polychromasia Cancelled Hypochromasia Cancelled Poikilocytosis Cancelled Basophilic Stippling Cancelled Anisocytosis Cancelled Microcytosis Cancelled Macrocytosis Cancelled Spherocytes Cancelled Tear Drop Cells Cancelled Ovalocytes Cancelled Stomatocytes Cancelled Garza[place] Bodies Cancelled Chrisney Cells/Echinocytes Cancelled Acanthocytes (Spur) Cancelled Schistocytes Cancelled ESR Cancelled 48 H Creatinine 1.4 H Est GFR (CKD-EPI 2020) 53.07 C-Reactive Protein Cancelled 0.92 H Random Vancomycin 18.2 Time Spent with Patient Time Spent with Patient: 25-34 minutes Time was spent: preparing to see the patient(eg.review tests), obtaining and/or reviewing separately otained hiistory, referring, communicating with other health youth care professional, indepentently interpreting results, counseling the patient and care coordination
[2024-03-02 16:34] LABS: Abs Immature Grans 0.11 10^3/uL (0.0-0.06); Absolute Eosinophil Count 0.74 10^3/uL (0.0-0.7); Absolute Monocyte Count 0.56 10^3/uL (0.1-0.8); Basophils % 1.3 %; Eosinophils % 6.2 %; HCT 32.3 % (40.0-50.0); Immature Grans % 0.9 %; Lymphocytes % 14.3 %; MCH 27.7 pg (27.0-33.0); MCV 90 fL (80-95); MPV 10.6 fL (8.0-11.0); Monocytes % 4.7 %; Neutrophils % 72.6 %; RBC 3.61 10^6/uL (4.36-5.78); RDW 14.9 % (11.8-14.1); RDW-SD 48.9 fL; WBC 11.86 10^3/uL (4.4-10.8)
[2024-03-02 16:54] LABS: Absolute Basophil Count 0.15 10^3/uL (0.0-0.2); Absolute Neutrophil Count 8.61 10^3/uL (1.2-6.7)
[2024-03-02 16:58] LABS: Platelet Count 778 10^3/uL (130-400)
[2024-03-02] MEDS: metFORMIN 500 MG TAB PO (17:33)
[2024-03-02 19:37] VITALS: BP 139/60; PULSE 65; RESP 18; TEMP 36.7; O2SAT 96
[2024-03-02] MEDS: Enoxaparin 40 MG/0.4 ML SYR SC (20:39)
[2024-03-02] MEDS: Sertraline 50 MG TAB PO (20:40)
[2024-03-02] MEDS: Rosuvastatin 20 MG TAB PO (20:40)
[2024-03-02] MEDS: Gabapentin 300 MG CAP 1500 MG PO (20:40)
[2024-03-02 23:20] VITALS: BP 100/46; PULSE 60; RESP 19; TEMP 36.2; O2SAT 96
[2024-03-02] MEDS: Insulin Glargine 300 UNITS/3 ML PEN 48 UNITS SC (23:56)
[2024-03-02] MEDS: Melatonin 3 MG TAB 9 MG PO (23:57)
[2024-03-02] MEDS: diphenhydrAMINE 25 MG CAP PO (23:58)
[2024-03-02] MEDS: oxyCODONE 15 MG TAB PO (23:58)
[2024-03-02] MEDS: Acetaminophen 325 MG TAB 650 MG PO (23:59)
[2024-03-03] VITALS (14 sets, daily range): BP systolic 88–120; BP diastolic 37–69; PULSE 54–68; RESP 18–20; TEMP 36.1–36.8; O2SAT 93–98; BMI 34.3
[2024-03-03] MEDS: CEFEPIME 2 GM in Normal Saline 100 ML IVPB ×3 (04:15→20:33)
[2024-03-03] MEDS: Acetaminophen 325 MG TAB 650 MG PO ×2 (05:49→18:02)
[2024-03-03] MEDS: oxyCODONE 15 MG TAB PO ×2 (05:50→21:23)
--- NOTE | 2024-03-03 08:35 | PDOC.CMPRO ---
Date of service: 03/03/24 Time of Service: 08:35 Care Management Progress Note Progress Note Text Progress Note Text: This morning Eloy asked to meet with CM regarding his HIPAA form and advanced directives. His niece Kaykay was present and both expressed concerns about his existing documents.Since his hospitalization in January, Eloy's Sol has been absent. She supposedly was traveling to [facility] to care for her ailing mother. Apparently that was not the case and Eloy was given paperwork yesterday to dissolve his marriage. His has reportedly left him for another man. Eloy requested to have his advanced directives, HIPAA form and contacts changed to remove Sol and add his niece Kaykay. CM assisted with this process and the documents were updated as requested. His ADs were faxed to the state, scanned into his chart and Eloy and Kaykay were given copies (Eloy has original, Kaykay a copy). Clinically, Eloy's plan of care is still not clear. More attempts have been made to have Eloy transferred to a tertiary care center and [place] has indicated interest in working with our providers to accomplish this. They do have Vascular surgery available. If Eloy does not get transferred today, he will return to the OR for another washout of his wound. Additionally, the provider plans to contact ID at [facility] for guidance on antimicrobial coverage for the wound. CM will follow. Discharge Potential Discharge Needs: Other (SB-1 vs SNF) Anticipated Barriers to Discharge: Bed availability and Medical Status Patient/Family Education Needs: Review discharge instructions, discuss Ask Me Three Transportation: Other (to be determined by disposition) Plan: Anticipate Eloy will be transitioned to SB-1 to complete his IV antibiotic therapy when medically stable. Conversely, he may be transferred to a tertiary care center if a bed becomes available. He will follow up with his surgeon and PCP and plan of care . CM will continue to assess for discharge needs. Social Determinants of Health Screening Social Determinants of Health last assessed: 03/03/24 Will the Patient Participate in the Screening?: Yes Do you worry about having a steady place to live?: no Problems where you live: no known problems In the past 12 months, have you had to go without electric, gas, oil or water in your home?: no Have you or anyone in your house had to go without enough food to eat?: no Has lack of transportation kept you from medical appointments or from doing things needed for daily living?: no Has anyone in your life made you feel unsafe or unsupported?: no How hard is it for you to pay for the very basics like food, housing, medical care, and heating? Would you say it is:: Somewhat hard (concerned about medical bills; has [facility] financial assistance) Do you want help finding or keeping work or a job?: I do not need or want help If for any reason you need help with day-to-day activities such as bathing, preparing meals, shopping, managing finances, etc., do you get the help you need?: I get all the help I need (feels well supported at home) How often do you feel lonely or isolated from those around you?: Sometimes Do you speak a language other than Czech at home?: No Does the patient want assistance with any of the above?: No Health Related Social Needs Health related social needs: problems related to housing/economic circumstances (Z59.89) and feeling lonely/isolated (Z60.8)
[2024-03-03] MEDS: Cholecalciferol (Vitamin D3) 1,000 UNIT TAB 2000 UNITS PO (09:05)
[2024-03-03] MEDS: Gabapentin 300 MG CAP 900 MG PO (09:05)
[2024-03-03] MEDS: Docusate Sodium 100 MG CAP PO ×2 (09:06→20:35)
[2024-03-03] MEDS: Lisinopril 2.5 MG TAB PO (09:06)
[2024-03-03] MEDS: Ezetimibe 10 MG TAB PO (09:06)
[2024-03-03] MEDS: Pantoprazole 40 MG TABCR PO (09:06)
[2024-03-03] MEDS: Nystatin OINT 15 GM TUBE TP ×2 (09:07→20:36)
[2024-03-03] MEDS: Nystatin POWDER 60 GM JAR TP ×2 (09:07→20:44)
[2024-03-03] MEDS: Normal Saline Flush 10 ML SYR IVP ×3 (09:07→20:34)
[2024-03-03] MEDS: Insulin Aspart 300 UNITS/3 ML PEN 6 UNITS SC ×2 (12:39→18:01)
[2024-03-03] MEDS: Insulin Aspart 300 UNITS/3 ML PEN SC ×2 (12:39→18:01)
--- NOTE | 2024-03-03 13:12 | ANES.PREOP_ITS ---
General Info Date of Service Date Performed: 03/03/24 Height: 6 ft 1 in Weight: 118.026 kg Body Mass Index (BMI): 34.3 Surgical Procedure: Operation Date: 02/23/24 07:20 Proposed Procedure Side Surgeon p Debridement Portillo Rendon MD Actual Procedure Side Surgeon p Irrigation + Debridement of Foot Wounds, 3rd + 4th Metatarsal Head Resection, Wound Vac Placement Right Portillo Rendon MD Pre-Op Diagnosis Post-Op Diagnosis Diabetic infection of right foot Diabetic infection of right foot Operation Date: 02/25/24 15:25 Proposed Procedure Side Surgeon p I&D of Foot, Wound Vac Placement Right Portillo Rendon MD Actual Procedure Side Surgeon p I&D of Foot, Wound Vac Placement Right Portillo Rendon MD Pre-Op Diagnosis Post-Op Diagnosis Diabetic foot wound, Osteomyelitis Diabetic foot wound, Osteomyelitis Operation Date: 03/03/24 14:10 Proposed Procedure Side Surgeon p I&D Foot Right Maria Ines Robles DPM Meds Allergies and Home Medications Allergies Allergy/AdvReac Type Severity Reaction Status Date / Time levofloxacin Allergy Severe critical Verified 02/16/24 14:33 onion Allergy Severe raw onion Verified 02/16/24 14:33 Penicillins Allergy Severe Anaphylaxsi Verified 02/16/24 14:33 s Sulfa (Sulfonamide Allergy Severe Hives Verified 02/16/24 14:33 Antibiotics) sulfamethoxazole (From Allergy Severe Hives Verified 02/16/24 14:33 Bactrim) trimethoprim (From Bactrim) Allergy Severe Hives Verified 02/16/24 14:33 simvastatin AdvReac Severe faints Verified 02/16/24 14:33 Home Medication ?Medication ?Instructions ?Recorded aspirin 81 mg chewable tablet 81 mg PO DAILY 12/25/16 (Aspirin Low-Strength) oxycodone 15 mg tablet 15 mg PO Q6H PRN pain 03/29/17 cyanocobalamin (vitamin B-12) 1,000 mcg IJ .monthly 10/03/17 1,000 mcg/mL injection solution melatonin 3 mg tablet 10 mg PO HS PRN 11/10/17 lisinopril 2.5 mg tablet 2.5 mg PO DAILY 05/23/18 diphenhydramine 25 2 - 3 tab PO QHS PRN 08/20/19 mg-acetaminophen 500 mg tablet (Tylenol PM Extra Strength) pantoprazole 40 mg tablet,delayed 40 mg PO DAILY 01/06/20 release cholecalciferol (vitamin D3) 50 50 mcg PO DAILY 09/05/22 mcg (2,000 unit) capsule ezetimibe 10 mg tablet (Zetia) 10 mg PO DAILY 09/05/22 gabapentin 300 mg capsule See Rx Instructions PO BID 09/14/22 insulin aspart U-100 100 unit/mL 1 sliding scale dose subcut 09/14/22 subcutaneous cartridge (Novolog .before meals PenFill U-100 Insulin aspart) docusate sodium 100 mg capsule 100 mg PO DAILY PRN 02/04/23 (Colace) insulin degludec 200 unit/mL (3 60 unit subcut .nightly 10/22/23 mL) subcutaneous pen (Tresiba FlexTouch U-200 insulin) metformin 850 mg tablet 850 mg PO .nightly 10/22/23 dulaglutide 3 mg/0.5 mL 3 mg subcut .WEEKLY 10/23/23 subcutaneous pen injector (Trulicity) acetaminophen 325 mg tablet 650 mg (2 x 325 mg) PO Q6H PRN PRN 12/20/23 #0 tabs clopidogrel 75 mg tablet 75 mg PO DAILY #0 tabs 12/20/23 insulin aspart U-100 100 unit/mL 0 unit (0 mL) subcut 12/20/23 (3 mL) subcutaneous pen 0800,1200,1700 #0 mL insulin glargine 100 unit/mL (3 48 unit (0.48 mL) subcut DAILY #0 12/20/23 mL) subcutaneous pen (Lantus mL Solostar U-100 Insulin) rosuvastatin 20 mg tablet 20 mg PO QPM #0 tabs 12/20/23 lorazepam 0.5 mg tablet (Ativan) 0.5 mg PO DAILY PRN 60 mins pror 02/13/24 to MRI #1 tab Current Visit Medications: Current Medications Generic Name Dose Route Start Last Admin Trade Name Freq PRN Reason Stop Dose Admin Acetaminophen 650 mg 02/16/24 16:59 03/03/24 05:49 Acetaminophen 325 Mg Tab PO 650 mg Q6H PRN PRN Administration Aspirin 81 mg 02/17/24 08:30 03/03/24 08:48 Aspirin 81 Mg Chew PO Not Given DAILY [facility] Cholecalciferol 2,000 units 02/17/24 08:30 03/03/24 09:05 Cholecalciferol (Vitamin D3) 1,000 Unit Tab PO 2,000 units DAILY [facility] Administration Clopidogrel Bisulfate 75 mg 02/17/24 08:30 03/03/24 08:48 Clopidogrel 75 Mg Tab PO Not Given DAILY [facility] Dextrose 0 gm 02/16/24 17:02 Glucose Oral Gel 15 Gm/37.5 Gm Tube PO DIRECTED PRN Dextrose/Water 0 gm 02/16/24 17:02 Dextrose 50%-Water 25 Gm/50 Ml Syr IVP DIRECTED PRN Diazepam 5 mg 02/29/24 12:31 03/02/24 12:38 Diazepam 5 Mg Tab PO 5 mg DIRECTED PRN Administration Dressing Change Diphenhydramine HCl 25 mg 02/26/24 16:23 03/02/24 23:58 Diphenhydramine 25 Mg Cap PO 25 mg HS PRN PRN Administration Docusate Sodium 100 mg 02/19/24 20:00 03/03/24 09:06 Docusate Sodium 100 Mg Cap PO 100 mg BID [facility] Administration Ezetimibe 10 mg 02/17/24 08:30 03/03/24 09:06 Ezetimibe 10 Mg Tab PO 10 mg DAILY [facility] Administration Enoxaparin Sodium 40 mg 02/26/24 20:00 03/02/24 20:39 Enoxaparin 40 Mg/0.4 Ml Syr SC 40 mg QPM [facility] Administration Gabapentin 900 mg 02/17/24 08:30 03/03/24 09:05 Gabapentin 300 Mg Cap PO 900 mg DAILY [facility] Administration Gabapentin 1,500 mg 02/16/24 20:00 03/02/24 20:40 Gabapentin 300 Mg Cap PO 1,500 mg HS [facility] Administration Gadoterate Meglumine 20 ml 03/02/24 13:45 03/02/24 13:31 Gadoterate Meglumine 20 Ml Syringe IVP 04/01/24 23:59 20 ml DIRECTED [facility] Administration Cefepime HCl 2 gm/ Sodium 100 mls @ 200 mls/hr 02/28/24 12:00 03/03/24 12:38 Chloride IVPB 200 mls/hr Q8H [facility] Administration Vancomycin HCl 1,750 mg/ 500 mls @ 250 mls/hr 03/02/24 14:00 03/02/24 16:30 Sodium Chloride IVPB Infused Q24H [facility] Infusion IV Miscellaneous Supplies 1 each 02/17/24 09:45 Iv Access IV DIRECTED [facility] Insulin Aspart 0 units 02/17/24 08:00 03/03/24 12:39 Insulin Aspart 300 Units/3 Ml Pen SC 2 units 0800,1200,1700 [facility] Administration Protocol Insulin Aspart 6 units 02/17/24 08:00 03/03/24 12:39 Insulin Aspart 300 Units/3 Ml Pen SC 6 unit 0800,1200,1700 [facility] Administration Insulin Glargine 48 units 02/18/24 20:00 03/02/24 23:56 Insulin Glargine 300 Units/3 Ml Pen SC 48 units HS [facility] Administration Lidocaine HCl 6 ml 02/23/24 22:26 02/23/24 23:03 Lidocaine 2% Jelly 6 Ml Syr TP 6 ml DIRECTED PRN Administration Catheter discomfort Lisinopril 2.5 mg 02/16/24 18:00 03/03/24 09:06 Lisinopril 2.5 Mg Tab PO 2.5 mg DAILY [facility] Administration Melatonin 9 mg 02/17/24 12:22 03/02/24 23:57 Melatonin 3 Mg Tab PO 9 mg HS PRN PRN Administration Metformin HCl 500 mg 02/24/24 17:00 03/02/24 17:33 Metformin 500 Mg Tab PO 500 mg DAILY@1700 [facility] Administration Nystatin 60 gm 02/17/24 14:00 03/03/24 09:07 Nystatin Powder 60 Gm Jar TP 1 applic TID [facility] Administration Nystatin 15 gm 02/17/24 20:00 03/03/24 09:07 Nystatin Oint 15 Gm Tube TP 1 applic BID [facility] Administration Oxycodone HCl 15 - 30 mg 02/24/24 07:39 03/03/24 05:50 Oxycodone 15 Mg Tab PO 15 mg Q3H PRN PRN Administration pain Pantoprazole Sodium 40 mg 02/18/24 07:30 03/03/24 09:06 Pantoprazole 40 Mg Tabcr PO 40 mg DAILY@0730 [facility] Administration Polyethylene Glycol 17 gm 02/28/24 08:56 02/28/24 10:41 Polyethylene Glycol 3350 17 Gm Packet PO 17 gm BID PRN PRN Administration Rosuvastatin Calcium 20 mg 02/16/24 20:00 03/02/24 20:40 Rosuvastatin 20 Mg Tab PO 20 mg QPM [facility] Administration Sertraline HCl 50 mg 03/01/24 20:00 03/02/24 20:40 Sertraline 50 Mg Tab PO 50 mg HS [facility] Administration Sodium Chloride 0 ml 02/16/24 14:48 Normal Saline 10 Ml Vial IJ DIRECTED PRN Sodium Chloride 0 ml 02/16/24 14:48 03/02/24 20:43 Normal Saline Flush 10 Ml Syr IVP 10 ml PRN PRN Administration Sodium Chloride 0 ml 02/16/24 20:00 03/03/24 09:07 Normal Saline Flush 10 Ml Syr IVP 10 ml BID [facility] Administration PFSH Active Problems Active Problems: Problem Status Onset Code Pressure injury of right foot, stage 1 Acute L89.891 Mckeon catheter problem Acute T83.9XXA Bilateral femoral artery stenosis Acute I70.203 Acute osteomyelitis of metatarsal bone of right foot Acute M86.171 Edema Acute R60.9 Advanced care planning/counseling discussion Acute Z71.89 Depression Chronic F32.A 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 of cerebrovascular accident Acute I69.354 Diabetic infection of right foot Acute E11.628, L08.9 Diabetic ulcer of right heel Acute E11.621, L97.419 Atherosclerosis of arteries Acute I70.90 Thrombocytosis Acute D75.839 Acute cerebrovascular accident (CVA) Acute I63.9 Type 2 diabetes mellitus Acute E11.9 Vitamin D deficiency Acute E55.9 Spinal stenosis Acute M48.00 Sleep apnea Acute Peripheral neuropathy Acute G62.9 Hyperlipidemia Acute E78.5 Hearing loss Acute H91.90 Current non-smoker but past smoking history unknown Acute Z78.9 Amputation of right foot Acute S98.911A Diabetic polyneuropathy Acute E11.42 Primary osteoarthritis of left shoulder Chronic M19.012 Tinnitus, bilateral Acute 05/16/17 H93.13 Sensorineural hearing loss (SNHL) of both ears Chronic 05/16/17 H90.3 Medical History Medical History Former smoker Infrarenal abdominal aortic aneurysm (AAA) without rupture Amputation of leg L - 2005 Biceps tendon rupture Hx of fall Change in bowel function Leg weakness Lightheadedness Rotator cuff tear arthropathy of right shoulder Rotator cuff tear arthropathy of left shoulder Impacted cerumen, right ear Infected sebaceous cyst of skin Weight gain Sebaceous cyst (~08/19/19) referral states Right anterior chest Rupture of right distal biceps tendon (~09/2018) Osteomyelitis Foot drop, right Diabetic foot ulcer Ulcer of foot Shoulder pain, left Calf pain Bronchitis Physical deconditioning Insomnia Skin irritation Abdominal pain DNR (do not resuscitate) Myalgia Balance problem B12 deficiency Dysphagia Partial tear of left rotator cuff Most recent injection: 06/30/19 S/P RTC repair by Dr. Jarrett September 2017 MRI from 02/2018 showed full-thickness re-tear supraspinatus and infraspinatus Cellulitis of right toe right 4th toe Impingement syndrome of left shoulder SURGERY 10/09/17 Other synovitis and tenosynovitis, left shoulder SURGERY 10/09/17 Complete rotator cuff tear of left shoulder SURGERY 10/09/17 Discharge planning issues DVT prophylaxis Amputated toe of right foot Acute appendicitis with localized peritonitis Hernia of anterior abdominal wall Surgical History Surgical History S/P cholecystectomy open History of transmetatarsal amputation of right foot History of left below knee amputation History of colonoscopy H/O esophagogastroduodenoscopy (~06/09/18) History of spinal surgery Status post rotator cuff surgery Rotator Cuff Repair Repair of inguinal hernia Appendectomy (06/11/16) Amputation left below knee amputation Tobacco Smoking/Tobacco Use Status: Former Tobacco Use Alcohol Alcohol Intake: former Substance Use Substance use: Never Substance use type: does not use Details: Pt states quit smoking 09/2017 Vital Signs and Lab Results Vital Signs Most Recent Vital Signs in EMR: Most Recent Vital Signs Temp Pulse Resp BP Pulse Ox 36.7 C 56 L 18 98/49 L 96 03/03/24 11:39 03/03/24 11:39 03/03/24 11:39 03/03/24 11:39 03/03/24 11:39 Point of Care Results Point of Care Results: Finger Stick Blood Glucose 178 03/03/24 12:39 Lab Results 03/02/24 14:35 03/02/24 06:04 Blood Type / Crossmatch: 2 No Data to Display Complete Blood Count: 2 White Blood Count 11.86 10^3/uL (4.4-10.8) H 03/02/24 14:35 Red Blood Count 3.61 10^6/uL (4.36-5.78) L 03/02/24 14:35 Hemoglobin 10.0 g/dL (13.5-17.5) L 03/02/24 14:35 Hematocrit 32.3 % (40.0-50.0) L 03/02/24 14:35 Platelet Count 778 10^3/uL (130-400) H* 03/02/24 14:35 Complete Metabolic Panel: 2 Sodium 139 mmol/L (136-145) 02/29/24 05:36 Potassium 4.6 mmol/L (3.5-5.1) 02/29/24 05:36 Chloride 104 mmol/L (98-107) 02/29/24 05:36 Carbon Dioxide 27.2 mmol/L (21.0-32.0) 02/29/24 05:36 BUN 35 mg/dL (7-18) H 02/29/24 05:36 Creatinine 1.4 mg/dL (0.70-1.30) H 03/02/24 06:04 Est GFR (CKD-EPI 2020) 53.07 (mL/min/1.73m2) 03/02/24 06:04 Magnesium 1.8 mg/dL (1.8-2.4) 02/16/24 15:05 Calcium 8.9 mg/dL (8.5-10.1) 02/29/24 05:36 Albumin 2.2 g/dL (3.4-5.0) L 02/29/24 05:36 Glucose 106 mg/dL (74-106) 02/29/24 05:36 C-Reactive Protein 0.92 mg/dL (<or=0.5) H 03/02/24 14:35 Liver Function Panel: 2 Alanine Aminotransferase (ALT/SGPT) 17 U/L (16-63) 02/29/24 05: 36 Aspartate Amino Transf (AST/SGOT) 17 U/L (15-37) 02/29/24 05:36 Coagulation Panel: 2 No Data to Display Cardiac Panel: 2 NT-Pro-B Natriuret Pep 647 pg/mL (<300) H 02/18/24 Arterial Blood Gas: 2 No Data to Display Venous Blood Gas: 2 No Data to Display Pancreas Panel: 2 No Data to Display Thyroid Panel: 2 No Data to Display Infectious Disease: 2 No Data to Display Blood Cultures: 2 No Data to Display Toxicology Panel: 2 No Data to Display Imaging and Studies Imaging and Studies Study information below may be from another EMR and interpreted by another provider. Please see original notes in EMR for more complete details. EKG Summary: 08/26/19 Sinus rhythm...normal P axis, V-rate 60- 99 Borderline prolonged PA interval...PA >212, V-rate 50- 90 Posterior infarct, old Echocardiogram Summary: Echocardiogram DATE OF SERVICE: September 09, 2013. ____ IN PATIENT __X__ OUT-PATIENT ORDERING PHYSICIAN: Lilli Packer MD. HEIGHT: 6 FT 2 IN WEIGHT: 252 LBS BSA: 2.4 m2 Blood pressure 130/76. STUDY INDICATIONS: Leg edema. FINDINGS: LEFT VENTRICLE/LVEF: LVEF 65%. Normal size. Mild concentric LVH. RIGHT VENTRICLE: Normal size and function. AORTIC VALVE: Trileaflet. No aortic stenosis or insufficiency. MITRAL VALVE: No mitral stenosis or insufficiency. TRICUSPID VALVE: Mild tricuspid insufficiency. RSV/PA/RIGHT ATRIAL PRESSURE: PULMONIC VALVE: Mild to moderate pulmonic insufficiency. No stenosis. ATRIA: Left atrium, right atrium within normal limits. DIASTOLIC INDICES: Pulmonic valve: E/A ratio less than 1. Deceleration time greater than 240 milliseconds. E-prime velocity approximately 8 cm per second. E/E prime ratio less than 15. GREAT VESSELS: The inferior vena cava is not visualized. The aortic root is mildly dilated at 4.1 cm. The ascending aorta is not measured. PERICARDIUM: No effusion. Rhythm: Sinus. SUMMARY: Conclusion: Normal biventricular size and systolic function. LVH. Diastolic indices appear abnormal and suggest stage I diastolic dysfunction. 1- 2+ PI. Pulmonary pressure is not assessable. Atrial size within normal limits. No prior studies. Anesthesia Assessment and Plan Anesthesia History Personal History: No History of Anesthesia Complications Family History: No Family History of Anesthesia Complications Exercise Tolerance Exercise Tolerance: Metabolic Equivalents<4 Cardiac & Pulmonary Exam Cardiac Exam: Normal S1/S2 Heart Sounds Pulmonary Exam: Clear Bilateral Breath Sounds Implantable Cardiac Device Does patient have a Pacemaker or an ICD?: No Airway Exam Known Difficult Airway: No Mallampati Class: 3 Mouth Opening: Normal (> 3cm) Thyromental Distance: Greater than 3 cm Neck Range of Motion: Full ROM Neck Circumference: Normal Teeth Condition: Generalized Poor Dentition (many missing, saw dentist recently, whats left is secure) ASA Classification ASA Score: ASA 3 Emergency Case?: No NPO Status NPO Status: NPO Clears >2 hours, Solids >8 hours Anesthesia Plan Resuscitation Status: Full Code Anesthesia Technique: MAC Anesthesia Airway Planned: Natural Airway Monitors Used: Standard Monitors Preoperative Comments:: 73 yo male for I/D foot. Currently inpt. Sig PMHx: CVA (12/19/23, left sided residual), AAA, PVD (severe atherosclerotic disease on CT) DM2 (last A1c 6.2), spinal stenosis, former smoker, ECHO: technically limited study. LV wall thickness/systolic function appear within the normal range. EKG: Sinus, long PA. Carotid US: < 50% stenosis on right. 50-69% stenosis left. Previous Anes: - I/D foot x 2, midaz, minimal prop, no issues. - lap lucy, glide 3 grade 1, easy mask. - EGD, prop, natural airway, no issues.
--- NOTE | 2024-03-03 13:48 | PT.INNT ---
PT Notes Visit Reasons: Diabetic foot wound, Osteomyelitis Pt unavailable, being transported downstairs for debridement procedure.
--- NOTE | 2024-03-03 13:51 | W.PM.PROGNOT ---
Date of Service Date of service: 03/03/24 Time of Service: 13:51 Assessment and Plan Assessment and plan (1) Diabetic infection of right foot: Status: Acute Assessment and plan: -Patient presented due to worsening despite outpatient antibiotic therapy with increasing WBC count. -History of MRSA (in skin wound on chest). At risk for pseudomonas given DM wound on foot. -Preliminary wound cultures growing staph species (not aureus), and yeast -Micro has been asked to speciate yeast, will discuss with infectious disease on recommendation for treatment regimen once additional information is available -Has been on cefepime and vancomycin we will continue pending wound/surgical cultures -Ortho and podiatry were unavailable upon patient admission, was ultimately seen by orthopedic surgery on 02/22/2024 and taken to the OR on 02/23/2024 and is now POD #4 from irrigation and debridement of the right forefoot, right hindfoot, and large tarsal head resection of third and fourth metatarsals -patient is now POD #2 from wound closure of right forefoot wound -Lateral hindfoot wound apparently with more drainage as compared to previous day, concern for increasing complexity of wound also in combination of bilateral femoral arteries stenosis and poor blood supply; orthopedic surgeon will discuss with podiatry tomorrow 02/28/2024 to discuss best course of action and potential need for involvement with vascular surgery intervention 02.27.23 My feeling remains that Mr. Galeano would benefit from a transfer to a higher level of care for evaluation by a Wound Care Physician, Vascular, ID, and Plastics. I have reached out to Dr. Robles of the Podiatry service but have not heard back yet in regards to wound healing recommendations. SWAB; RIGHT LATERAL HINDFOOT Organism 1 Staphylococcus haemolyticus GROWTH RARE GROWTH Organism 2 YEAST GROWTH RARE GROWTH Stap haem Result Ciprofloxacin R Gentamicin R Trimethoprim/Sulfamethoxazole R Erythromycin R Oxacillin R Vancomycin S Gram Stain Final 02/23/24-1209 GRAM STAIN No White Blood Cells No Bacteria Seen BONE; 3RD METATARSAL HEAD Organism 1 Staphylococcus epidermidis GROWTH RARE GROWTH Organism 2 YEAST GROWTH RARE GROWTH Stap epid Result Ciprofloxacin R Gentamicin S Trimethoprim/Sulfamethoxazole R Erythromycin R Oxacillin R Vancomycin S Gram Stain Final 02/23/24-1208 GRAM STAIN Rare White Blood Cells No Bacteria Seen SWAB; RIGHT FOREFOOT RARE MIXED GRAM POSITIVE ANNIKA CONSISTENT WITH SKIN ORGANISMS PRESENT. Organism 1 ENTEROBACTER CLOACAE COMPLEX GROWTH RARE GROWTH Organism 2 YEAST GROWTH RARE GROWTH Organism 3 Gram positive annika, mixed GROWTH RARE GROWTH Ent maria co Result Cefazolin R Ceftazidime S CEFTRIAXONE S Ciprofloxacin I Gentamicin S Imipenem S Levofloxacin I Tobramycin S Trimethoprim/Sulfamethoxazole R Piperacillin/Tazobactam S Will restart Cefepime. 02/29/24 Pt does show some mild yeast growth on cultures. Pt does appear stable and considering the possible s/e of yeast medications, I will hold off for now. My plan is to d/w ID over the phone on Saturday. WBC is elevated but stable 03/01/24 My plan is to try and reach out to Podiatry to see if they have any wound care recommendations as well as reach out to Ortho. CW abx for now. Depending on what Podiatry says, will d/w ID as well 03/02/24 Plan reviewed from Podiatry and MRI and fims were reviewed. Pt is for surgical intervention in the AM 03/03/24 PT is s/p repeat incision and drainage. Op note not available at this time (2) Type 2 diabetes mellitus: Status: Acute Assessment and plan: -A1c 6.1% in November, which represents overly aggressive control given his age and comorbities. -Will continue outpatient medication with lowered doses here 02.28.24 Pt's last BG readings are 96/177/254/274. C/w current medical regimen 03.02.24 BG have been slowly increasing. Will increase lantus to 51 (3) 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 of cerebrovascular accident: Status: Acute Assessment and plan: -Continue ASA and high intensity statin. -He is done with 21 days of DAPT, but according to PCP he is still on DAPT related to his ongoing thrombocytosis pending hematology evaluation. -Will continue clopidogrel as well for now. -Hemeparesis and wounds, amputations affecting his ADLs. -He may need additional rehabilitation or addition help at home. He does not want to go back to [facility] (4) Depression: Status: Chronic Assessment and plan: -being treated with fluoxetine. Unfortantely this medication can affect his clopidogrel. -will change to sertraline, but wait until discharge as otherwise will get too much overlap in effect given fluoxetine's long half life. 02.27.23 Lovenox 1/2 life for active metabolite is appx 10 days according to [facility]. Will hold for a bit longer 03.01.23 Above statement should say fluoxetine instead of lovenox 03/02/24 PT has been started on sertaline (5) Edema: Status: Acute Assessment and plan: -Exact etiology is unknown but I do have some concerns for CHF. Will check BNP and consider echo is one hasn't been done in the past. My guess is that he had an echo recently 2/2 CVA work up. -TTE without acute findings -albumin low at 2.0 03.01.24 Added protein drinks to his meals (6) Thrombocytosis: Status: Acute Assessment and plan: -Pt continues to have elevations in his platelets. -Pt does have an appt with [facility] which is pending 02.27.23 pending labs for am 02.29.24 Latest platelet count is 841 Subjective Subjective Interval history since last seen: PT seen and examined in his room prior to his surgery. Pt resting comfortably. I have placed a duane/consult to ID at [facility] and awaiting response. I have also attempted to coordinate care with Podiatry (Dr Robles) in regards to a transfer for vascular intervention but [facility] is essentially on divert as they have appx 20 admissions in the ED. Exam Narrative Exam Narrative: PT resting comfortably in his room no respiratory distress left aka r foot with wound vac in place Objective Last Vital Signs Temp 36.7 C 03/03/24 11:39 Pulse 56 L 03/03/24 11:39 Resp 18 03/03/24 11:39 BP 98/49 L 03/03/24 11:39 Pulse Ox 96 03/03/24 11:39 Laboratory Results - last 24 hr 03/02/24 14:35 WBC 11.86 H RBC 3.61 L Hgb 10.0 L Hct 32.3 L MCV 90 MCH 27.7 MCHC 31.0 L RDW 14.9 H Plt Count 778 H* MPV 10.6 Immature Gran % 0.9 Neutrophils % 72.6 Lymphocytes % 14.3 Monocytes % 4.7 Eosinophils % 6.2 Basophils % 1.3 Nucleated RBC % 0.0 Absolute Neutrophils 8.61 H Absolute Lymphocytes 1.70 Absolute Monocytes 0.56 Absolute Eosinophils 0.74 H Absolute Basophils 0.15 ESR 48 H C-Reactive Protein 0.92 H Time Spent with Patient Time Spent with Patient: <25 minutes Time was spent: preparing to see the patient(eg.review tests), ordering medications,tests, procedures and referring, communicating with other health emergency care tech
[2024-03-03] MEDS: Lactated Ringers 1,000 ML 30 ML IV (14:04)
[2024-03-03] MEDS: Lidocaine 1% Pres-Free 30 ML VIAL (14:43)
[2024-03-03] MEDS: Cellulose,Oxidized 4X8 1 PACKET MC (14:45)
--- NOTE | 2024-03-03 14:54 | ULCER_PTH ---
PATIENT: Suhail Galeano LOC: [id number]#:[id number] AGE/SX: 73/M ROOM: RE02/16/[address]: Erich Marie : 1950 BED: A DIS: 03/05/2024 SPEC #: [id number] RECD: 03/03/24 17:10 STATUS: SOUT REQ #: [id number] DONNIE: 03/03/24 14:[address]: Maria Ines Robles DEPT: Surgical Specimen RECD BY: Adrianna Carver ENTERED: 03/03/24 17:11 SP TYPE: ULCER OTHR DR: Lilli Pcaker MD Johns, Jason R Lamontagne, Denis J Raser, John Sara Zaidi, DPM [facility]Patient [facility] Tissues: 1 - ULCER DECUBITUS 2 - ULCER DECUBITUS Procedures: GROSS AND MICRO LEVEL 3 SPECIAL STAIN 1 Comments: [id number]
--- NOTE | 2024-03-03 15:12 | W.PM.OP ---
Operative Note Operative Note PRE-OP DIAGNOSIS: Necrotizing infection, right foot; necrotic ulcers, right foot including subcutaneous tissue POST-OP DIAGNOSIS: same PROCEDURE: Incision and debridement of ulcers, right foot with excisional debridement including subcutaneous tissue SURGEON: Maria Ines Robles ANESTHESIA TYPE: Local By Surgeon (20 mL 1% lidocaine plain preop) and General:No Airway Refer to Anesthesia Record ESTIMATED BLOOD LOSS: 100 PATHOLOGY: other (Soft tissue, right foot ulcers) TOURNIQUET TIME: 0 COMPLICATIONS: None Patient was transported to: floor Patient's condition: stable Indications: This is a 73-year-old male patient with necrotic ulcers to the right foot. Patient is status post excision of the third and fourth metatarsal heads by Dr. Rendon with delayed primary closure. There is nonhealing and worsening ulceration to the right heel wound. There are 2 new ischemic/necrotic ulcers to the lateral aspect of the right foot with bulla formation. Ecchymosis/thrombosis noted to the dorsum of the right foot concerning for infection. Largely ischemic nature of these ulcers is noted. On CTA there is evidence for moderate atherosclerotic disease throughout the right SFA, most prominent stenosis noted at the level of the Sky's canal. Moderate atherosclerotic disease of the right popliteal artery. Severe multilevel calcification noted in the right posterior tibial with the dominant runoff at the right peroneal artery. Given this, there is a risk for limb loss. We have attempted transfer to [facility] for potential revascularization, however, unable to transfer due to bed availability at this time. I discussed the benefits of surgical intervention at this time most particularly to help remove the necrotic tissue as well as to help explore for a deeper abscess. I did advise the patient that there is no evidence for an abscess on MRI however, with certain soft tissue infections and abscess is not always obvious on MRI. Patient consented to the procedure. No guarantees or warranties were made or implied. Findings: Necrotic/bullous tissue noted to the lateral aspect of the right foot at the level of the fifth metatarsal x 2. 100% necrotic base noted to the ulcer to the right heel. Ecchymosis/soft tissue necrosis noted to the dorsal aspect of the right heel. Upon debridement, no deeper abscess noted to the bolus tissue or the right heel. There is heavy necrotic tissue noted to the right foot wounds. No deeper abscess, no purulence no malodor noted to the dorsal foot wound. No probe to bone or capsule at this time. Post debridement measurements: The right distal lateral ulcer measures 1.5 x 1.5 x 0.7 cm. The right proximal lateral wound measures 3.8 x 1.5 x 0.8 cm Right heel ulcer measures 7.0 x 3.5 x 0.8 cm. All ulcers are full-thickness to the level of subcutaneous tissue. Ulcers x 3 were debrided today excisionally using a sterile #15 blade as well as Versajet including subcutaneous tissue. All necrotic, nonviable tissue removed today. Postdebridement images as below: Procedure Description: Patient was identified in preop holding. Consent form was signed, reviewed and in chart. Let right lower extremity was marked. Patient was then brought to the operating room placed on the operating table in supine position with the anesthesia team. After induction of anesthesia, right ankle block was performed using 20 mL of 1% lidocaine plain preoperatively. The right lower extremity was then scrubbed, prepped and draped in the usual aseptic manner. Timeout was then carried out. Attention was then directed to the lateral aspect of the right foot where 2 ischemic/necrotic ulcers were noted. These wounds were debrided today with a sterile #15 blade excisionally of all necrotic, nonviable tissue which was passed from the operative field this included the subcutaneous tissue. Debridement was performed until healthy bleeding base was noted. Attention was then directed to the lateral aspect of the right heel where an 100% necrotic wound bed was noted. Versajet was used to excisionally debride all necrotic, nonviable tissue including subcutaneous tissue to healthy bleeding base. No evidence for probe to bone or capsule noted at this time however some fascia is palpable. Attention was then directed to the dorsal aspect of the right foot where an eschar/thrombosed tissue was noted a small 1 cm linear longitudinal incision was made and the tissue was then evaluated and noted to be healthy and viable with minimal to no deeper necrosis. I decision was then made to not further debride this tissue. There is no evidence for an abscess From the wounds that were debrided today, however, there is necrosis of the soft tissue noted indicating a necrotizing soft tissue infection. Small amount of oozing noted from the wound. The right foot is warm to touch and with increased wrinkling noted to demonstrate decrease in edema. Hemostasis was obtained with Surgicel. Surgicel was removed. Surgifoam was then applied followed by 4 x 4, Kerlix and a very gently applied Huan wrap. Patient tolerated the procedure and anesthesia well with vital signs stable and vascular status intact to the right foot. He was transferred to the floor once stable. Patient will require serial serial drip debridement. Once adequate hemostasis is achieved he may benefit from a wound VAC. Will reevaluate tomorrow. Date of Procedure: 03/03/24
--- NOTE | 2024-03-03 15:27 | W.ANESPOSTOP ---
Postoperative Evaluation Date, Time and Location Date Performed: 03/03/24 Time Performed: 15:37 Patient Location: PACU Vital Signs Most Recent Imported Vital Signs: Most Recent Vital Signs Temp Pulse Resp BP Pulse Ox 36.7 C 56 L 18 98/49 L 96 03/03/24 11:39 03/03/24 11:39 03/03/24 11:39 03/03/24 11:39 03/03/24 11:39 Most Recent Vital Signs Temp Pulse Resp BP Pulse Ox 36.4 C L 55 L 15 107/48 L 95 02/25/24 13:00 02/25/24 13:00 02/25/24 13:00 02/25/24 13:00 02/25/24 13:00 Most Recent Vital Signs Temp Pulse Resp BP Pulse Ox 35.8 C L 56 L 12 106/54 L 95 02/23/24 10:17 02/23/24 10:17 02/23/24 10:17 02/23/24 10:17 02/23/24 10:17 Pain Score Most Recent Pain Score: Most Recent Pain Score Pain Level [Right Lower Foot] 10 02/27/24 06:42 Pain Level 4 03/03/24 11:39 Assessment Mental Status: Awake (Alert & Oriented to Patient Baseline) Airway and Respiratory Function: Patent airway with normal (patient baseline) respiratory exam Cardiovascular Function: Hemodynamically Stable Hydration Status: Adequately Hydrated Nausea & Vomiting: No Nausea or Vomiting Pain: Pt. Denies Any Pain Peripheral Nerve Block: Patient did not receive a nerve block
[2024-03-03 17:43] LABS: Abs Immature Grans 0.07 10^3/uL (0.0-0.06); Absolute Basophil Count 0.15 10^3/uL (0.0-0.2); Absolute Monocyte Count 0.68 10^3/uL (0.1-0.8); Absolute Neutrophil Count 9.07 10^3/uL (1.2-6.7); Basophils % 1.2 %; Eosinophils % 4.3 %; HCT 30.9 % (40.0-50.0); HGB 9.5 g/dL (13.5-17.5); Immature Grans % 0.6 %; Lymphocytes % 15.4 %; MCH 27.7 pg (27.0-33.0); MCHC 30.7 % (32.0-36.0); MCV 90 fL (80-95); MPV 10.3 fL (8.0-11.0); Monocytes % 5.5 %; RBC 3.43 10^6/uL (4.36-5.78); RDW-SD 49.2 fL; WBC 12.43 10^3/uL (4.4-10.8)
[2024-03-03 18:01] LABS: Absolute Eosinophil Count 0.53 10^3/uL (0.0-0.7); Absolute Lymphocyte Count 1.91 10^3/uL (1.2-3.4)
[2024-03-03 18:02] LABS: Platelet Count 716 10^3/uL (130-400)
[2024-03-03] MEDS: metFORMIN 500 MG TAB PO (18:02)
--- NOTE | 2024-03-03 18:04 | NUR.NOTE ---
S/P R foot I&D. Sanguineous drainage on HUSSAIN wrap, reinforced as ordered. Dr. Robles and Dr. Galeas aware. Nursing Note:
[2024-03-03] MEDS: Enoxaparin 40 MG/0.4 ML SYR SC (20:35)
[2024-03-03] MEDS: Sertraline 50 MG TAB PO (20:35)
[2024-03-03] MEDS: Gabapentin 300 MG CAP 1500 MG PO (20:35)
[2024-03-03] MEDS: Rosuvastatin 20 MG TAB PO (20:36)
[2024-03-03] MEDS: Insulin Glargine 300 UNITS/3 ML PEN 48 UNITS SC (20:40)
[2024-03-03] MEDS: diphenhydrAMINE 25 MG CAP PO (21:23)
[2024-03-03] MEDS: diazePAM 5 MG TAB PO (21:23)
[2024-03-03] MEDS: Melatonin 3 MG TAB 9 MG PO (21:23)
[2024-03-04 03:16] VITALS: BP 105/60; PULSE 67; RESP 18; TEMP 36.5; O2SAT 95
[2024-03-04] MEDS: CEFEPIME 2 GM in Normal Saline 100 ML IVPB ×3 (04:05→20:31)
[2024-03-04] MEDS: Normal Saline Flush 10 ML SYR IVP ×3 (04:06→20:31)
[2024-03-04 07:39] VITALS: BP 114/64; PULSE 60; RESP 19; TEMP 36.7; O2SAT 97
--- NOTE | 2024-03-04 09:06 | W.PM.PROGNOT ---
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 Status post I&D of new necrotic blisters (which developed sometime between 02/25/24 and 03/02/24 without any pressure or trauma) and right heel wound debridement, 03/03/2024. Seen bedside today resting comfortably. Leukocytosis persists however this could be postoperative. ESR and CRP noted to be trending down. At bedside, there is sanguinous drainage noted saturating the dressings. Mild oozing noted to the ulcers at the borders. Hemostasis was achieved with application of silver nitrate today. Dressings were changed today with foam border dressing. Patient is to keep his right lower extremity elevated at all times. Although there is oozing noted from the wounds, the ischemic/gangrenous ulceration does seem progressive as there are new necrotic changes noted today. I discussed my concern for nonhealing wounds to the right foot. Patient is at high risk for below the knee amputation to the right lower extremity due to low circulation, recurrent necrotizing infections (I believe we have good source control) and nonhealing wounds as well as diabetes. This will be very difficult as he does have a below-knee amputation to the contralateral limb. Patient verbalized understanding. CTA shows single vessel runoff which typically in my experience is not sufficient to heal ulcers of the severity particularly ulcers at the heel. I recommend consultation with vascular to see if he is a candidate for revascularization which if possible, will help tremendously with healing the wounds. He will also benefit from HBOT. Subjective Subjective Interval history since last seen: Patient was seen bedside today. He is status post repeat I&D and heel wound debridement date of surgery 03/03/2024. Does report mild pain to the right lower extremity. States that he slept very well last night. Denies new pedal complaints. Exam Extrem Other: Right lower extremity physical exam: Derm: There is an incision site noted to the distal aspect of the right forefoot at the third and fourth metatarsal head resection site with sutures in place there is some scabbing noted no periwound erythema, edema drainage or malodor, no bogginess no fluctuance no crepitus no proximal streaking. Full-thickness ulceration with a partly necrotic base, bruising noted to the borders, noted to the posterior lateral aspect of the right heel with point tenderness noted to the distal most aspect of the ulceration, no periwound erythema, no purulence no malodor no fluctuance no bogginess Full-thickness ulcer with a granular base and oozing from the borders x 2 noted to the lateral aspect of the right foot with some point tenderness, some necrotic changes noted to the borders, no erythema, there is edema, no crepitus no bogginess no fluctuance no proximal streaking no probe to bone or capsule. Unstageable ulcer noted to the dorsum of the right midfoot with no periwound erythema, there is no point tenderness noted. No fluctuance no bogginess no crepitus no proximal streaking or lymphangitis. Incision site at this area is noted to be intact however with some ischemic changes. Vascular: Pulses are nonpalpable to DP and PT, skin is warm to touch, CFT is delayed, hair growth is absent, there is significant edema noted to the right foot. MSK: Tenderness to palpation noted to the ulceration of the right heel. No point tenderness to the midfoot, no point tenderness to the partial third and fourth ray amputation site to the right foot. Patient is able to move the right lower extremity. Below-knee amputation noted to the left lower extremity Neuro: Light touch sensation absent. Objective Last Vital Signs Temp 98.1 F 03/04/24 07:39 Pulse 60 03/04/24 07:39 Resp 19 03/04/24 07:39 BP 114/64 03/04/24 07:39 Pulse Ox 97 03/04/24 07:39 Laboratory Results - last 24 hr 03/03/24 17:35 WBC 12.43 H RBC 3.43 L Hgb 9.5 L Hct 30.9 L MCV 90 MCH 27.7 MCHC 30.7 L RDW 15.0 H Plt Count 716 H MPV 10.3 Immature Gran % 0.6 Neutrophils % 73.0 Lymphocytes % 15.4 Monocytes % 5.5 Eosinophils % 4.3 Basophils % 1.2 Nucleated RBC % 0.0 Absolute Neutrophils 9.07 H Absolute Lymphocytes 1.91 Absolute Monocytes 0.68 Absolute Eosinophils 0.53 Absolute Basophils 0.15 Time Spent with Patient Time Spent with Patient: >50 minutes Time was spent: preparing to see the patient(eg.review tests), obtaining and/or reviewing separately otained hiistory, ordering medications,tests, procedures, referring, communicating with other health career based intervention coordinator, indepentently interpreting results, counseling the patient, care coordination and other
[2024-03-04] MEDS: Gabapentin 300 MG CAP 900 MG PO (09:19)
[2024-03-04] MEDS: Pantoprazole 40 MG TABCR PO (09:19)
[2024-03-04] MEDS: Aspirin 81 MG CHEW PO (09:19)
[2024-03-04] MEDS: Clopidogrel 75 MG TAB PO (09:19)
[2024-03-04] MEDS: Nystatin OINT 15 GM TUBE TP ×2 (09:19→20:31)
[2024-03-04] MEDS: Docusate Sodium 100 MG CAP PO ×2 (09:19→20:27)
[2024-03-04] MEDS: Ezetimibe 10 MG TAB PO (09:19)
[2024-03-04] MEDS: Lisinopril 2.5 MG TAB PO (09:19)
[2024-03-04] MEDS: Cholecalciferol (Vitamin D3) 1,000 UNIT TAB 2000 UNITS PO (09:19)
[2024-03-04] MEDS: Insulin Aspart 300 UNITS/3 ML PEN 6 UNITS SC ×3 (09:21→17:26)
[2024-03-04] MEDS: Insulin Aspart 300 UNITS/3 ML PEN SC ×3 (09:21→17:26)
[2024-03-04 11:11] VITALS: BP 92/53; PULSE 69; RESP 19; TEMP 36.6; O2SAT 97
[2024-03-04] MEDS: oxyCODONE 15 MG TAB PO ×2 (11:16→23:02)
[2024-03-04] MEDS: diazePAM 5 MG TAB PO (11:18)
[2024-03-04] MEDS: Nystatin POWDER 60 GM JAR TP ×3 (12:23→20:31)
--- NOTE | 2024-03-04 14:23 | DSE_ITS ---
Date of service: 04/03/24 Time of Service: 17:24 DS: Diagnosis Discharge Diagnosis (1) Pressure injury of right foot, stage 1: Status: Acute (2) Edema: Status: Acute (3) Diabetic infection of right foot: Status: Acute (4) Diabetic ulcer of right heel: Status: Acute (5) Atherosclerosis of arteries: Status: Acute (6) Thrombocytosis: Status: Acute (7) Diabetic polyneuropathy: Status: Acute Discharge Plan Disposition Patient Disposition: Transfer-Acute Inpatient Care Specific Acute Inpt Facility: [facility] Condition: Stable Discharge Details Reason For Visit: Diabetic foot wound, Osteomyelitis Admit Date/Time: 02/16/24 16:53 Admit Provider: Claudia Marie Attending Provider: Claudia Marie Primary Care Provider: Sheyla Packer V Hospital Course Hospital Course: Taken from progress note on 03/04/24 Assessment and plan: -Patient presented due to worsening despite outpatient antibiotic therapy with increasing WBC count. -History of MRSA (in skin wound on chest). At risk for pseudomonas given DM wound on foot. -Preliminary wound cultures growing staph species (not aureus), and yeast -Micro has been asked to speciate yeast, will discuss with infectious disease on recommendation for treatment regimen once additional information is available -Has been on cefepime and vancomycin we will continue pending wound/surgical cultures -Ortho and podiatry were unavailable upon patient admission, was ultimately seen by orthopedic surgery on 02/22/2024 and taken to the OR on 02/23/2024 and is now POD #4 from irrigation and debridement of the right forefoot, right hindfoot, and large tarsal head resection of third and fourth metatarsals -patient is now POD #2 from wound closure of right forefoot wound -Lateral hindfoot wound apparently with more drainage as compared to previous day, concern for increasing complexity of wound also in combination of bilateral femoral arteries stenosis and poor blood supply; orthopedic surgeon will discuss with podiatry tomorrow 02/28/2024 to discuss best course of action and potential need for involvement with vascular surgery intervention 02.27.23 My feeling remains that Mr. Galeano would benefit from a transfer to a higher level of care for evaluation by a Wound Care Physician, Vascular, ID, and Plastics. I have reached out to Dr. Robles of the Podiatry service but have not heard back yet in regards to wound healing recommendations. SWAB; RIGHT LATERAL HINDFOOT Organism 1 Staphylococcus haemolyticus GROWTH RARE GROWTH Organism 2 YEAST GROWTH RARE GROWTH Stap haem Result Ciprofloxacin R Gentamicin R Trimethoprim/Sulfamethoxazole R Erythromycin R Oxacillin R Vancomycin S Gram Stain Final 02/23/24-1209 GRAM STAIN No White Blood Cells No Bacteria Seen BONE; 3RD METATARSAL HEAD Organism 1 Staphylococcus epidermidis GROWTH RARE GROWTH Organism 2 YEAST GROWTH RARE GROWTH Stap epid Result Ciprofloxacin R Gentamicin S Trimethoprim/Sulfamethoxazole R Erythromycin R Oxacillin R Vancomycin S Gram Stain Final 02/23/24-1208 GRAM STAIN Rare White Blood Cells No Bacteria Seen SWAB; RIGHT FOREFOOT RARE MIXED GRAM POSITIVE OTIS CONSISTENT WITH SKIN ORGANISMS PRESENT. Organism 1 ENTEROBACTER CLOACAE COMPLEX GROWTH RARE GROWTH Organism 2 YEAST GROWTH RARE GROWTH Organism 3 Gram positive otis, mixed GROWTH RARE GROWTH Ent maria co Result Cefazolin R Ceftazidime S CEFTRIAXONE S Ciprofloxacin I Gentamicin S Imipenem S Levofloxacin I Tobramycin S Trimethoprim/Sulfamethoxazole R Piperacillin/Tazobactam S Will restart Cefepime. 02/29/24 Pt does show some mild yeast growth on cultures. Pt does appear stable and considering the possible s/e of yeast medications, I will hold off for now. My plan is to d/w ID over the phone on Saturday. WBC is elevated but stable 03/01/24 My plan is to try and reach out to Podiatry to see if they have any wound care recommendations as well as reach out to Ortho. CW abx for now. Depending on what Podiatry says, will d/w ID as well 03/02/24 Plan reviewed from Podiatry and MRI and fims were reviewed. Pt is for surgical intervention in the AM 03/03/24 PT is s/p repeat incision and drainage. Op note not available at this time 03/04/2024 After significant coordination between Dr. Rendon, Dr. Borrero, Dr Robbins ([facility] Vascular) the pt was accepted for evaluation and possible vascular intervention. Of note, I have been in touch with ID in [facility] who did not recommend treating the yeast infection in the bone bx. Furthermore, the pt does have a bhatti in place and this was replaced today according to the pt. Pt also has DMII as well as thrombocytosis for which he is supposed to see a hem/onc specialist in the outpatient setting. I will add the two op reports to the bottom of this document. Of note, the pt has been on Vancomycin and Cefepime essentially since admission. Operative Note Operative Note PRE-OP DIAGNOSIS: Necrotizing infection, right foot; necrotic ulcers, right foot including subcutaneous tissue POST-OP DIAGNOSIS: same PROCEDURE: Incision and debridement of ulcers, right foot with excisional debridement including subcutaneous tissue SURGEON: Maria Ines Robles ANESTHESIA TYPE: Local By Surgeon (20 mL 1% lidocaine plain preop) and General:No Airway Refer to Anesthesia Record ESTIMATED BLOOD LOSS: 100 PATHOLOGY: other (Soft tissue, right foot ulcers) TOURNIQUET TIME: 0 COMPLICATIONS: None Patient was transported to: floor Patient's condition: stable Indications: This is a 73-year-old male patient with necrotic ulcers to the right foot. Patient is status post excision of the third and fourth metatarsal heads by Dr. Rendon with delayed primary closure. There is nonhealing and worsening ulceration to the right heel wound. There are 2 new ischemic/necrotic ulcers to the lateral aspect of the right foot with bulla formation. Ecchymosis/thrombosis noted to the dorsum of the right foot concerning for infection. Largely ischemic nature of these ulcers is noted. On CTA there is evidence for moderate atherosclerotic disease throughout the right SFA, most prominent stenosis noted at the level of the Sky's canal. Moderate atherosclerotic disease of the right popliteal artery. Severe multilevel calcification noted in the right posterior tibial with the dominant runoff at the right peroneal artery. Given this, there is a risk for limb loss. We have attempted transfer to [facility] for potential revascularization, however, unable to transfer due to bed availability at this time. I discussed the benefits of surgical intervention at this time most p articularly to help remove the necrotic tissue as well as to help explore for a deeper abscess. I did advise the patient that there is no evidence for an abscess on MRI however, with certain soft tissue infections and abscess is not always obvious on MRI. Patient consented to the procedure. No guarantees or warranties were made or implied. Findings: Necrotic/bullous tissue noted to the lateral aspect of the right foot at the level of the fifth metatarsal x 2. 100% necrotic base noted to the ulcer to the right heel. Ecchymosis/soft tissue necrosis noted to the dorsal aspect of the right heel. Upon debridement, no deeper abscess noted to the bolus tissue or the right heel. There is heavy necrotic tissue noted to the right foot wounds. No deeper abscess, no purulence no malodor noted to the dorsal foot wound. No probe to bone or capsule at this time. Post debridement measurements: The right distal lateral ulcer measures 1.5 x 1.5 x 0.7 cm. The right proximal lateral wound measures 3.8 x 1.5 x 0.8 cm Right heel ulcer measures 7.0 x 3.5 x 0.8 cm. All ulcers are full-thickness to the level of subcutaneous tissue. Ulcers x 3 were debrided today excisionally using a sterile #15 blade as well as Versajet including subcutaneous tissue. All necrotic, nonviable tissue removed today. Postdebridement images as below: Procedure Description: Patient was identified in preop holding. Consent form was signed, reviewed and in chart. Let right lower extremity was marked. Patient was then brought to the operating room placed on the operating table in supine position with the anesthesia team. After induction of anesthesia, right ankle block was performed using 20 mL of 1% lidocaine plain preoperatively. The right lower extremity was then scrubbed, prepped and draped in the usual aseptic manner. Timeout was then carried out. Attention was then directed to the lateral aspect of the right foot where 2 ischemic/necrotic ulcers were noted. These wounds were debrided today with a sterile #15 blade excisionally of all necrotic, nonviable tissue which was passed from the operative field this included the subcutaneous tissue. Debridement was performed until healthy bleeding base was noted. Attention was then directed to the lateral aspect of the right heel where an 100% necrotic wound bed was noted. Versajet was used to excisionally debride all necrotic, nonviable tissue including subcutaneous tissue to healthy bleeding base. No evidence for probe to bone or capsule noted at this time however some fascia is palpable. Attention was then directed to the dorsal aspect of the right foot where an eschar/thrombosed tissue was noted a small 1 cm linear longitudinal incision was made and the tissue was then evaluated and noted to be healthy and viable with minimal to no deeper necrosis. I decision was then made to not further debride this tissue. There is no evidence for an abscess From the wounds that were debrided today, however, there is necrosis of the soft tissue noted indicating a necrotizing soft tissue infection. Small amount of oozing noted from the wound. The right foot is warm to touch and with increased wrinkling noted to demonstrate decrease in edema. Hemostasis was obtained with Surgicel. Surgicel was removed. Surgifoam was then applied followed by 4 x 4, Kerlix and a very gently applied Huan wrap. Patient tolerated the procedure and anesthesia well with vital signs stable and vascular status intact to the right foot. He was transferred to the floor once stable. Patient will require serial serial drip debridement. Once adequate hemostasis is achieved he may benefit from a wound VAC. Will reevaluate tomorrow. Operative Note Operative Note PRE-OP DIAGNOSIS: Right Foot Wounds, Osteomyelitis POST-OP DIAGNOSIS: same PROCEDURE: Irrigation and debridement of right forefoot wound with secondary closure Irrigation and debridement of right lateral hindfoot wound Wound VAC application, right heel SURGEON: Portillo Rendon ANESTHESIA TYPE: General:No Airway Refer to Anesthesia Record ESTIMATED BLOOD LOSS: 5 PATHOLOGY: none sent TOURNIQUET TIME: 0 COMPLICATIONS: None Patient was transported to: floor Patient's condition: stable Indications: Mr. Galeano is a 73-year-old who has wounds about his right foot from pressure and from diabetes. He had debridement performed on Saturday with wound VAC placement. He returns to the operating today for repeat evaluation, irrigation debridement, and potential closure with wound VAC reapplication. I reviewed the technical details of the case with him. I discussed the risk to include continued infection, need for repeat procedures. Despite these risk, he elects to proceed. Findings: There is a healthy vascular wound bed in the forefoot. No necrotic tissue. No purulence. This was closed without tension. The hindfoot wound had good vascularity and some minor slough but no sign of infection. No purulence. Wound VAC was applied to the hindfoot. Procedure Description: Mr. Galeano was greeted in the preoperative holding area. His identity was confirmed the correct site was identified and marked. The consent was reviewed with the patient and signed. He was taken back to the operating room placed in the supine position. The right leg was placed onto a ramp for exposure of the heel. A bump was placed underneath the right hip. The wound VAC and dressing was removed. The right leg was prepped with Betadine. In general anesthesia without airway instrumentation was administered. A timeout was performed for safe surgery. Thorough irrigation was performed of both the hindfoot and forefoot wounds. Investigation of these wound showed no signs of purulence. No necrotic tissue. After irrigation of 1 L of normal saline to reach wound I then performed a debridement with a curette to the lateral hindfoot wound. The forefoot wound had excellent granulation and was able to be closed with minimal tension. Starting with the forefoot I closed the deep tissue utilizing a #2-0 PDS. This created a very small dogear with some roughened plantar skin to the medial aspect of the wound. Therefore, I excised this dogear out so the skin edges may lay flat against each other. With a deep layer reapproximated I then used a #2- 0 Prolene to reapproximate the skin edges using large simple sutures. This had excellent reapproximation of the skin without significant tension. Attention was then turned to the hindfoot wound. Once again there had been debridement performed. There is excellent vascularity. I then cut a black sponge down to appropriate size to fit the wound itself. Once this was cut down to size it was placed on the wound and secured utilizing the clear sticky drapes. The strips were applied and a hole was made for the suction device. This was placed. Suction was applied through the wound VAC and a seal was achieved. A Mepilex silver dressing was placed over the forefoot wound. An Huan wrap was placed around the foot and above the ankle. He was placed back into the pressure offloading boot. He was awake from anesthesia and transferred back to the medical surgical floor without difficulty and without complication. RUN DATE: 03/04/24 [facility] PAGE 1 RUN TIME: [id number] RUN USER: [place] [address] Sita Quintero MD,PhD PATIENT REPORT PATIENT: FroylanOkskymariaa Castellanos LOC: [place] #: [id number] /SX: 1950 M ROOM: RE02/16/[address]: CLAUDIA MARIE MD STATUS: ADM IN BED: A DIS: SPEC #: [id number] DONNIE: 02/28/24 STATUS: COMP REQ #: [id number] RECD: 02/28/24-[address]: Bhaskar Galeas M.D. OTHR DR: GEORGINA BAL, SHEYLA NAGEL MD,JANINA REYNOSO CRNA, ASIF BEE DPM, PATSY MARIE MD, Maria Ines Harris DPM Arron Tyrone,InPatient FAX #: SOURCE:Urine SPECIMEN DESCRIPTION:Reflex from UA Procedure Result Verified Urine Culture Final 03/01/24-720 Day 1 Result ISOLATES BELOW ISOLATE 1 COLONY COUNT 50,000 - 100,000 COLONIES/ML ISOLATE 1 APPEARANCE Yeast Day 2 Result ISOLATES BELOW ISOLATE 1 COLONY COUNT 50,000 - 100,000 COLONIES/ML ISOLATE 1 APPEARANCE Yeast Organism 1 YEAST COLONY COUNT 50,000 - 100,000 COLONIES/ML Home Meds and New Rx's Prescriptions: New sertraline 50 mg Tablet 50 mg PO HS Qty: 30 0RF Continued lisinopril 2.5 mg tablet 2.5 mg PO DAILY gabapentin 300 mg capsule See Rx Instructions PO BID Rx Instructions: orally twice a day; PCP med list reports 900mg Qam and 1,500 Qpm diphenhydramine-acetaminophen [Tylenol PM Extra Strength] 25-500 mg tablet 2 - 3 tab PO QHS PRN ezetimibe [Zetia] 10 mg tablet 10 mg PO DAILY cholecalciferol (vitamin D3) 50 mcg (2,000 unit) capsule 50 mcg PO DAILY insulin aspart U-100 [Novolog PenFill U-100 Insulin] 100 unit/mL cartridge 1 sliding scale dose SC .before meals Rx Instructions: up to a total of 55units in a 24hr period. lorazepam [Ativan] 0.5 mg tablet 0.5 mg PO DAILY PRN (Reason: 60 mins pror to MRI ) Qty: 1 0RF cyanocobalamin (vitamin B-12) 1,000 MCG/ML solution 1,000 mcg IJ .monthly melatonin 3 mg Tablet 10 mg PO HS PRN pantoprazole 40 mg tablet,delayed release (DR/EC) 40 mg PO DAILY Patient Comments: TAKE 1 TABLET BY MOUTH ONCE DAILY docusate sodium [Colace] 100 MG capsule 100 mg PO DAILY PRN metformin 850 mg tablet 850 mg PO .nightly Patient Comments: TAKE 1 TABLET BY MOUTH ONCE DAILY IN THE EVENING insulin degludec [Tresiba FlexTouch U-200] 200 unit/mL (3 mL) insulin pen 60 unit SUBCUT .nightly Patient Comments: med list noted 80 units, patient stated taking 60 units Trulicity 3 mg/0.5 mL pen injector 3 mg SUBCUT .WEEKLY Patient Comments: INJECT CONTENTS OF ONE PEN INJECTOR SUBCUTANEOUSLY ONCE WEEKLY FOR DIABETES aspirin [Aspirin Low-Strength] 81 MG tablet,chewable 81 mg PO DAILY oxycodone 15 MG tablet 15 mg PO Q6H PRN (Reason: pain) insulin aspart U-100 100 unit/mL (3 mL) Insulin Pen 0 unit subcut 0800,1200,1700 Qty: 0 0RF rosuvastatin 20 mg Tablet 20 mg PO QPM Qty: 0 0RF insulin glargine [Lantus Solostar U-100 Insulin] 100 unit/mL (3 mL) Insulin Pen 48 unit subcut DAILY Qty: 0 0RF acetaminophen 325 mg Tablet 650 mg PO Q6H PRN PRNQty: 0 0RF clopidogrel 75 mg Tablet 75 mg PO DAILY Qty: 0 0RF Discharge Instructions Activity:: Activity as Tolerated Equipment/Supplies:: No Equipment Needed Diet:: As Tolerated Discharge Orders Discharge Orders: Discharge Order (Routine); Ordered 03/05/24 Ordered By: Lew Jurado Discharge Data Discharge Date/Time-TO BE ENTERED AT DEPARTURE: 03/05/24 14:14 DS: Summary Time Spent with Patient providing and/or coordinating discharge services: Greater than 30 minutes Status at Discharge Functional status at discharge: independent ambulation Overall status at discharge: patient is back to baseline Mental Status: mental status grossly normal Speech and Movement: speech and movement normal Mood: congruent mood Affect: normal affect Quality:SDOH Health Related Social Needs: Health related social needs problems related to housin g/economic circumstances (Z59.89), feeling lonely/isolated (Z60.8) Exam Psych Mental Status: mental status grossly normal Speech and Movement: speech and movement normal Mood: congruent mood Affect: normal affect DS: Data Vitals/I&O Vitals and I&O: Vital Signs Temperature 36.6 C 03/04/24 11:11 Temperature Source Tympanic 03/04/24 11:11 Pulse 69 03/04/24 11:11 Pulse Rhythm Regular 02/16/24 17:54 Pulse 73 02/20/24 11:11 Respiratory Rate 19 03/04/24 11:11 Respiratory Effort Normal 02/16/24 17:54 Respiratory Depth Normal 02/16/24 17:54 Respiratory Pattern Normal 02/16/24 17:54 Blood Pressure 92/53 L 03/04/24 11:11 Pulse Oximetry 97 03/04/24 11:11 Oxygen Delivery Method Room Air 03/04/24 11:11 Oxygen Flow Rate 0 03/04/24 11:11 Pain Level 3 03/04/24 12:16 Comment Notifying RN 03/02/24 15:22 Intake & Output 03/03/24 03/04/24 03/04/24 23:59 11:59 23:59 Intake Total 2900 / 3000 370 / 370 Output Total 1550 / 2550 1175 / 1175 Balance 1350 / 450 -805 / -805 Weight 118.026 kg Intake: IV 1720 / 1820 120 / 120 Oral 1180 / 1180 250 / 250 Output: Urine 1450 / 2450 1175 / 1175 Estimated Blood Loss 100 / 100 Other: Urine Color Yellow Yellow Urine Appearance Cloudy Sediment Emesis Description None Data Completed and Pending Labs on day of discharge: Labs from last 24 hours 03/03/24 17:35 WBC 12.43 H RBC 3.43 L Hgb 9.5 L Hct 30.9 L MCV 90 MCH 27.7 MCHC 30.7 L RDW 15.0 H Plt Count 716 H MPV 10.3 Immature Gran % 0.6 Neutrophils % 73.0 Lymphocytes % 15.4 Monocytes % 5.5 Eosinophils % 4.3 Basophils % 1.2 Nucleated RBC % 0.0 Absolute Neutrophils 9.07 H Absolute Lymphocytes 1.91 Absolute Monocytes 0.68 Absolute Eosinophils 0.53 Absolute Basophils 0.15 03/03/24 14:33 Foot - Right Anaerobic Culture - Pending 03/03/24 14:33 Foot - Right Anaerobic Culture - Pending Preliminary micro results at discharge 03/03/24 14:33 Surgical Culture - Preliminary Foot - Right 03/03/24 14:50 Surgical Culture - Preliminary Foot - Right 03/03/24 14:33 Anaerobic Culture - Pending Foot - Right 03/03/24 14:33 Anaerobic Culture - Pending Foot - [facility] All Active Problems (Updated 03/06/24 @ 00:05 by AMANDEEP ZAVALETA) Pressure injury of right foot, stage 1 (Acute) Bhatti catheter problem (Acute) Bilateral femoral artery stenosis (Acute) Acute osteomyelitis of metatarsal bone of right foot (Acute) s/p 3rd and 4th MT Head Resection (02/23/24) Edema (Acute) Depression (Chronic) 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 of cerebrovascular accident (Acute) Diabetic infection of right foot (Acute) Diabetic ulcer of right heel (Acute) Atherosclerosis of arteries (Acute) Thrombocytosis (Acute) Acute cerebrovascular accident (CVA) (Acute) Type 2 diabetes mellitus (Acute) Vitamin D deficiency (Acute) Spinal stenosis (Acute) Sleep apnea (Acute) Peripheral neuropathy (Acute) Hyperlipidemia (Acute) Hearing loss (Acute) Current non-smoker but past smoking history unknown (Acute) Amputation of right foot (Acute) Diabetic polyneuropathy (Acute) Primary osteoarthritis of left shoulder (Chronic) Tinnitus, bilateral (Acute 05/16/17) Sensorineural hearing loss (SNHL) of both ears (Chronic 05/16/17) Medical History Former smoker Infrarenal abdominal aortic aneurysm (AAA) without rupture Amputation of leg L - 2005 Biceps tendon rupture Hx of fall Change in bowel function Leg weakness Lightheadedness Rotator cuff tear arthropathy of right shoulder Rotator cuff tear arthropathy of left shoulder Impacted cerumen, right ear Infected sebaceous cyst of skin Weight gain Sebaceous cyst (~08/19/19) referral states Right anterior chest Rupture of right distal biceps tendon (~09/2018) Osteomyelitis Foot drop, right Diabetic foot ulcer Ulcer of foot Shoulder pain, left Calf pain Bronchitis Physical deconditioning Insomnia Skin irritation Abdominal pain DNR (do not resuscitate) Myalgia Balance problem B12 deficiency Dysphagia Partial tear of left rotator cuff Most recent injection: 06/30/19 S/P RTC repair by Dr. Jarrett September 2017 MRI from 02/2018 showed full-thickness re-tear supraspinatus and infraspinatus Cellulitis of right toe right 4th toe Impingement syndrome of left shoulder SURGERY 10/09/17 Other synovitis and tenosynovitis, left shoulder SURGERY 10/09/17 Complete rotator cuff tear of left shoulder SURGERY 10/09/17 Discharge planning issues DVT prophylaxis Amputated toe of right foot Acute appendicitis with localized peritonitis Hernia of anterior abdominal wall Surgical History S/P cholecystectomy open History of transmetatarsal amputation of right foot History of left below knee amputation History of colonoscopy H/O esophagogastroduodenoscopy (~06/09/18) History of spinal surgery Status post rotator cuff surgery Rotator Cuff Repair Repair of inguinal hernia Appendectomy (06/11/16) Amputation left below knee amputation Family History Mother CAD (coronary artery disease) Maternal Grandmother Diabetes Social History Smoking/Tobacco Use Status: Former Tobacco Use Quit Date: 02/18/17 Smoking risk assessment performed?: Yes Alcohol Intake: former Drug use: Never Substance use type: does not use Details: Pt states quit smoking 09/2017 Housing: house Current gender identity: male Do you feel safe at home: Yes Do you feel safe in your relationship?: Yes Additional Social history: Grew up outside of [place] in town in [place]. 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 Time Spent with Patient Time Spent with Patient: 45-69 minutes Time was spent: preparing to see the patient(eg.review tests), obtaining and/or reviewing separately otained hiistory, ordering medications,tests, procedures, referring, communicating with other health adult care manager, indepentently interpreting results, counseling the patient and care coordination
--- NOTE | 2024-03-04 14:27 | DSE_ITS ---
Date of service: 03/04/24 Time of Service: 14:27 DS: Diagnosis Discharge Diagnosis (1) Pressure injury of right foot, stage 1: Status: Acute (2) Edema: Status: Acute (3) Diabetic infection of right foot: Status: Acute (4) Diabetic ulcer of right heel: Status: Acute (5) Atherosclerosis of arteries: Status: Acute (6) Thrombocytosis: Status: Acute (7) Diabetic polyneuropathy: Status: Acute Discharge Plan Disposition Specific Acute Inpt Facility: [facility] Condition: Stable Condition: Stable Discharge Details Reason For Visit: Diabetic foot wound, Osteomyelitis Admit Date/Time: 02/16/24 16:53 Admit Provider: Claudia Marie Attending Provider: Claudia Marie Primary Care Provider: Sheyla Packer V Hospital Course Hospital Course: Taken from progress note on 03/04/24 Assessment and plan: -Patient presented due to worsening despite outpatient antibiotic therapy with increasing WBC count. -History of MRSA (in skin wound on chest). At risk for pseudomonas given DM wound on foot. -Preliminary wound cultures growing staph species (not aureus), and yeast -Micro has been asked to speciate yeast, will discuss with infectious disease on recommendation for treatment regimen once additional information is available -Has been on cefepime and vancomycin we will continue pending wound/surgical cultures -Ortho and podiatry were unavailable upon patient admission, was ultimately seen by orthopedic surgery on 02/22/2024 and taken to the OR on 02/23/2024 and is now POD #4 from irrigation and debridement of the right forefoot, right hindfoot, and large tarsal head resection of third and fourth metatarsals -patient is now POD #2 from wound closure of right forefoot wound -Lateral hindfoot wound apparently with more drainage as compared to previous day, concern for increasing complexity of wound also in combination of bilateral femoral arteries stenosis and poor blood supply; orthopedic surgeon will discuss with podiatry tomorrow 02/28/2024 to discuss best course of action and potential need for involvement with vascular surgery intervention 02.27.23 My feeling remains that Mr. Galeano would benefit from a transfer to a higher level of care for evaluation by a Wound Care Physician, Vascular, ID, and Plastics. I have reached out to Dr. Robles of the Podiatry service but have not heard back yet in regards to wound healing recommendations. SWAB; RIGHT LATERAL HINDFOOT Organism 1 Staphylococcus haemolyticus GROWTH RARE GROWTH Organism 2 YEAST GROWTH RARE GROWTH Stap haem Result Ciprofloxacin R Gentamicin R Trimethoprim/Sulfamethoxazole R Erythromycin R Oxacillin R Vancomycin S Gram Stain Final 02/23/24-1209 GRAM STAIN No White Blood Cells No Bacteria Seen BONE; 3RD METATARSAL HEAD Organism 1 Staphylococcus epidermidis GROWTH RARE GROWTH Organism 2 YEAST GROWTH RARE GROWTH Stap epid Result Ciprofloxacin R Gentamicin S Trimethoprim/Sulfamethoxazole R Erythromycin R Oxacillin R Vancomycin S Gram Stain Final 02/23/24-1208 GRAM STAIN Rare White Blood Cells No Bacteria Seen SWAB; RIGHT FOREFOOT RARE MIXED GRAM POSITIVE OTIS CONSISTENT WITH SKIN ORGANISMS PRESENT. Organism 1 ENTEROBACTER CLOACAE COMPLEX GROWTH RARE GROWTH Organism 2 YEAST GROWTH RARE GROWTH Organism 3 Gram positive otis, mixed GROWTH RARE GROWTH Ent maria co Result Cefazolin R Ceftazidime S CEFTRIAXONE S Ciprofloxacin I Gentamicin S Imipenem S Levofloxacin I Tobramycin S Trimethoprim/Sulfamethoxazole R Piperacillin/Tazobactam S Will restart Cefepime. 02/29/24 Pt does show some mild yeast growth on cultures. Pt does appear stable and considering the possible s/e of yeast medications, I will hold off for now. My plan is to d/w ID over the phone on Saturday. WBC is elevated but stable 03/01/24 My plan is to try and reach out to Podiatry to see if they have any wound care recommendations as well as reach out to Ortho. CW abx for now. Depending on what Podiatry says, will d/w ID as well 03/02/24 Plan reviewed from Podiatry and MRI and fims were reviewed. Pt is for surgical intervention in the AM 03/03/24 PT is s/p repeat incision and drainage. Op note not available at this time 03/04/2024 After significant coordination between Dr. Rendon, Dr. Borrero, Dr Robbins ([facility] Vascular) the pt was accepted for evaluation and possible vascular intervention. Of note, I have been in touch with ID in [facility] who did not recommend treating the yeast infection in the bone bx. Furthermore, the pt does have a bhatti in place and this was replaced today according to the pt. Pt also has DMII as well as thrombocytosis for which he is supposed to see a hem/onc specialist in the outpatient setting. I will add the two op reports to the bottom of this document. Of note, the pt has been on Vancomycin and Cefepime essentially since admission. Operative Note Operative Note PRE-OP DIAGNOSIS: Necrotizing infection, right foot; necrotic ulcers, right foot including subcutaneous tissue POST-OP DIAGNOSIS: same PROCEDURE: Incision and debridement of ulcers, right foot with excisional debridement including subcutaneous tissue SURGEON: Maria Ines Robles ANESTHESIA TYPE: Local By Surgeon (20 mL 1% lidocaine plain preop) and General:No Airway Refer to Anesthesia Record ESTIMATED BLOOD LOSS: 100 PATHOLOGY: other (Soft tissue, right foot ulcers) TOURNIQUET TIME: 0 COMPLICATIONS: None Patient was transported to: floor Patient's condition: stable Indications: This is a 73-year-old male patient with necrotic ulcers to the right foot. Patient is status post excision of the third and fourth metatarsal heads by Dr. Rendon with delayed primary closure. There is nonhealing and worsening ulceration to the right heel wound. There are 2 new ischemic/necrotic ulcers to the lateral aspect of the right foot with bulla formation. Ecchymosis/thrombosis noted to the dorsum of the right foot concerning for infection. Largely ischemic nature of these ulcers is noted. On CTA there is evidence for moderate atherosclerotic disease throughout the right SFA, most prominent stenosis noted at the level of the Sky's canal. Moderate atherosclerotic disease of the right popliteal artery. Severe multilevel calcification noted in the right posterior tibial with the dominant runoff at the right peroneal artery. Given this, there is a risk for limb loss. We have attempted transfer to [facility] for potential revascularization, however, unable to transfer due to bed availability at this time. I discussed the benefits of surgical intervention at this time most particularly to help remove the necrotic tissue as well as to help explore for a deeper abscess. I did advise the patient that there is no evidence for an abscess on MRI however, with certain soft tissue infections and abscess is not always obvious on MRI. Patient consented to the procedure. No guarantees or warranties were made or implied. Findings: Necrotic/bullous tissue noted to the lateral aspect of the right foot at the level of the fifth metatarsal x 2. 100% necrotic base noted to the ulcer to the right heel. Ecchymosis/soft tissue necrosis noted to the dorsal aspect of the right heel. Upon debridement, no deeper abscess noted to the bolus tissue or the right heel. There is heavy necrotic tissue noted to the right foot wounds. No deeper abscess, no purulence no malodor noted to the dorsal foot wound. No probe to bone or capsule at this time. Post debridement measurements: The right distal lateral ulcer measures 1.5 x 1.5 x 0.7 cm. The right proximal lateral wound measures 3.8 x 1.5 x 0.8 cm Right heel ulcer measures 7.0 x 3.5 x 0.8 cm. All ulcers are full-thickness to the level of subcutaneous tissue. Ulcers x 3 were debrided today excisionally using a sterile #15 blade as well as Versajet including subcutaneous tissue. All necrotic, nonviable tissue removed today. Postdebridement images as below: Procedure Description: Patient was identified in preop holding. Consent form was signed, reviewed and in chart. Let right lower extremity was marked. Patient was then brought to the operating room placed on the operating table in supine position with the anesthesia team. After induction of anesthesia, right ankle block was performed using 20 mL of 1% lidocaine plain preoperatively. The right lower extremity was then scrubbed, prepped and draped in the usual aseptic manner. Timeout was then carried out. Attention was then directed to the lateral aspect of the right foot where 2 ischemic/necrotic ulcers were noted. These wounds were debrided today with a sterile #15 blade excisionally of all necrotic, nonviable tissue which was passed from the operative field this included the subcutaneous tissue. Debridement was performed until healthy bleeding base was noted. Attention was then directed to the lateral aspect of the right heel where an 100% necrotic wound bed was noted. Versajet was used to excisionally debride all necrotic, nonviable tissue including subcutaneous tissue to healthy bleeding base. No evidence for probe to bone or capsule noted at this time however some fascia is palpable. Attention was then directed to the dorsal aspect of the right foot where an eschar/thrombosed tissue was noted a small 1 cm linear longitudinal incision was made and the tissue was then evaluated and noted to be healthy and viable with minimal to no deeper necrosis. I decision was then made to not further debride this tissue. There is no evidence for an abscess From the wounds that were debrided today, however, there is necrosis of the soft tissue noted indicating a necrotizing soft tissue infection. Small amount of oozing noted from the wound. The right foot is warm to touch and with increased wrinkling noted to demonstrate decrease in edema. Hemostasis was obtained with Surgicel. Surgicel was removed. Surgifoam was then applied followed by 4 x 4, Kerlix and a very gently applied Huan wrap. Patient tolerated the procedure and anesthesia well with vital signs stable and vascular status intact to the right foot. He was transferred to the floor once stable. Patient will require serial serial drip debridement. Once adequate hemostasis is achieved he may benefit from a wound VAC. Will reevaluate tomorrow. Operative Note Operative Note PRE-OP DIAGNOSIS: Right Foot Wounds, Osteomyelitis POST-OP DIAGNOSIS: same PROCEDURE: Irrigation and debridement of right forefoot wound with secondary closure Irrigation and debridement of right lateral hindfoot wound Wound VAC application, right heel SURGEON: Portillo Rendon ANESTHESIA TYPE: General:No Airway Refer to Anesthesia Record ESTIMATED BLOOD LOSS: 5 PATHOLOGY: none sent TOURNIQUET TIME: 0 COMPLICATIONS: None Patient was transported to: floor Patient's condition: stable Indications: Mr. Galeano is a 73-year-old who has wounds about his right foot from pressure and from diabetes. He had debridement performed on Saturday with wound VAC placement. He returns to the operating today for repeat evaluation, irrigation debridement, and potential closure with wound VAC reapplication. I reviewed the technical details of the case with him. I discussed the risk to include continued infection, need for repeat procedures. Despite these risk, he elects to proceed. Findings: There is a healthy vascular wound bed in the forefoot. No necrotic tissue. No purulence. This was closed without tension. The hindfoot wound had good vascularity and some minor slough but no sign of infection. No purulence. Wound VAC was applied to the hindfoot. Procedure Description: Mr. Galeano was greeted in the preoperative holding area. His identity was confirmed the correct site was identified and marked. The consent was reviewed with the patient and signed. He was taken back to the operating room placed in the supine position. The right leg was placed onto a ramp for exposure of the heel. A bump was placed underneath the right hip. The wound VAC and dressing was removed. The right leg was prepped with Betadine. In general anesthesia without airway instrumentation was administered. A timeout was performed for safe surgery. Thorough irrigation was performed of both the hindfoot and forefoot wounds. Investigation of these wound showed no signs of purulence. No necrotic tissue. After irrigation of 1 L of normal saline to reach wound I then performed a debridement with a curette to the lateral hindfoot wound. The forefoot wound had excellent granulation and was able to be closed with minimal tension. Starting with the forefoot I closed the deep tissue utilizing a #2-0 PDS. This created a very small dogear with some roughened plantar skin to the medial aspect of the wound. Therefore, I excised this dogear out so the skin edges may lay flat against each other. With a deep layer reapproximated I then used a #2- 0 Prolene to reapproximate the skin edges using large simple sutures. This had excellent reapproximation of the skin without significant tension. Attention was then turned to the hindfoot wound. Once again there had been debridement performed. There is excellent vascularity. I then cut a black sponge down to appropriate size to fit the wound itself. Once this was cut down to size it was placed on the wound and secured utilizing the clear sticky drapes. The strips were applied and a hole was made for the suction device. This was placed. Suction was applied through the wound VAC and a seal was achieved. A Mepilex silver dressing was placed over the forefoot wound. An Huan wrap was placed around the foot and above the ankle. He was placed back into the pressure offloading boot. He was awake from anesthesia and transferred back to the medical surgical floor without difficulty and without complication. RUN DATE: 03/04/24 [facility] PAGE 1 RUN TIME: [id number] RUN USER: [place] [address] Sita Quintero MD,PhD PATIENT REPORT PATIENT: Suhail Galeano LOC: U #: [id number] /SX: 1950 M ROOM: RE02/16/[address]: CLAUDIA MARIE MD STATUS: ADM IN BED: A DIS: SPEC #: [id number] DONNIE: 02/28/241430 STATUS: COMP REQ #: [id number] RECD: 02/28/24-[address]: Bhaskar Galeas M.D. OTHR DR: GEORGINA BAL, SHEYLA NAGEL MD,JANINA REYNOSO CRNA, ASIF BEE DPM, PATSY MARIE MD, Maria Ines Harris DPM [facility],InPatient FAX #: SOURCE:Urine SPECIMEN DESCRIPTION:Reflex from UA Procedure Result Verified Urine Culture Final 03/01/24-720 Day 1 Result ISOLATES BELOW ISOLATE 1 COLONY COUNT 50,000 - 100,000 COLONIES/ML ISOLATE 1 APPEARANCE Yeast Day 2 Result ISOLATES BELOW ISOLATE 1 COLONY COUNT 50,000 - 100,000 COLONIES/ML ISOLATE 1 APPEARANCE Yeast Organism 1 YEAST COLONY COUNT 50,000 - 100,000 COLONIES/ML Home Meds and New Rx's Prescriptions: New sertraline 50 mg Tablet 50 mg PO HS Qty: 30 0RF Continued lisinopril 2.5 mg tablet 2.5 mg PO DAILY gabapentin 300 mg capsule See Rx Instructions PO BID Rx Instructions: orally twice a day; PCP med list reports 900mg Qam and 1,500 Qpm diphenhydramine-acetaminophen [Tylenol PM Extra Strength] 25-500 mg tablet 2 - 3 tab PO QHS PRN ezetimibe [Zetia] 10 mg tablet 10 mg PO DAILY cholecalciferol (vitamin D3) 50 mcg (2,000 unit) capsule 50 mcg PO DAILY insulin aspart U-100 [Novolog PenFill U-100 Insulin] 100 unit/mL cartridge 1 sliding scale dose SC .before meals Rx Instructions: up to a total of 55units in a 24hr period. lorazepam [Ativan] 0.5 mg tablet 0.5 mg PO DAILY PRN (Reason: 60 mins pror to MRI ) Qty: 1 0RF cyanocobalamin (vitamin B-12) 1,000 MCG/ML solution 1,000 mcg IJ .monthly melatonin 3 mg Tablet 10 mg PO HS PRN pantoprazole 40 mg tablet,delayed release (DR/EC) 40 mg PO DAILY Patient Comments: TAKE 1 TABLET BY MOUTH ONCE DAILY docusate sodium [Colace] 100 MG capsule 100 mg PO DAILY PRN metformin 850 mg tablet 850 mg PO .nightly Patient Comments: TAKE 1 TABLET BY MOUTH ONCE DAILY IN THE EVENING insulin degludec [Tresiba FlexTouch U-200] 200 unit/mL (3 mL) insulin pen 60 unit SUBCUT .nightly Patient Comments: med list noted 80 units, patient stated taking 60 units Trulicity 3 mg/0.5 mL pen injector 3 mg SUBCUT .WEEKLY Patient Comments: INJECT CONTENTS OF ONE PEN INJECTOR SUBCUTANEOUSLY ONCE WEEKLY FOR DIABETES aspirin [Aspirin Low-Strength] 81 MG tablet,chewable 81 mg PO DAILY oxycodone 15 MG tablet 15 mg PO Q6H PRN (Reason: pain) insulin aspart U-100 100 unit/mL (3 mL) Insulin Pen 0 unit subcut 0800,1200,1700 Qty: 0 0RF rosuvastatin 20 mg Tablet 20 mg PO QPM Qty: 0 0RF insulin glargine [Lantus Solostar U-100 Insulin] 100 unit/mL (3 mL) Insulin Pen 48 unit subcut DAILY Qty: 0 0RF acetaminophen 325 mg Tablet 650 mg PO Q6H PRN PRNQty: 0 0RF clopidogrel 75 mg Tablet 75 mg PO DAILY Qty: 0 0RF DS: Summary Time Spent with Patient providing and/or coordinating discharge services: Greater than 30 minutes Status at Discharge Functional status at discharge: wheelchair bound Overall status at discharge: patient is not back to baseline Mental Status: mental status grossly normal Speech and Movement: speech and movement normal Mood: congruent mood Affect: normal affect Quality:SDOH Health Related Social Needs: Health related social needs problems related to housin g/economic circumstances (Z59.89), feeling lonely/isolated (Z60.8) Exam Narrative Exam Narrative: PT resting comfortably in his room no respiratory distress left aka r foot with wound vac in place Psych Mental Status: mental status grossly normal Speech and Movement: speech and movement normal Mood: congruent mood Affect: normal affect DS: Data Vitals/I&O Vitals and I&O: Vital Signs Temperature 36.6 C 03/04/24 11:11 Temperature Source Tympanic 03/04/24 11:11 Pulse 69 03/04/24 11:11 Pulse Rhythm Regular 02/16/24 17:54 Pulse 73 02/20/24 11:11 Respiratory Rate 19 03/04/24 11:11 Respiratory Effort Normal 02/16/24 17:54 Respiratory Depth Normal 02/16/24 17:54 Respiratory Pattern Normal 02/16/24 17:54 Blood Pressure 92/53 L 03/04/24 11:11 Pulse Oximetry 97 03/04/24 11:11 Oxygen Delivery Method Room Air 03/04/24 11:11 Oxygen Flow Rate 0 03/04/24 11:11 Pain Level 3 03/04/24 12:16 Comment Notifying RN 03/02/24 15:22 Intake & Output 03/03/24 03/04/24 03/04/24 23:59 11:59 23:59 Intake Total 2900 / 3000 370 / 2370 2000 / 2370 Output Total 1550 / 2550 1175 / 1175 Balance 1350 / 450 -805 / 1195 1999 / 1195 Weight 118.026 kg Intake: IV 1720 / 1820 120 / 120 Oral 1180 / 1180 250 / 2250 2000 / 2250 Output: Urine 1450 / 2450 1175 / 1175 Estimated Blood Loss 100 / 100 Other: Urine Color Yellow Yellow Urine Appearance Cloudy Sediment Emesis Description None Data Completed and Pending Labs on day of discharge: Labs from last 24 hours 03/03/24 17:35 WBC 12.43 H RBC 3.43 L Hgb 9.5 L Hct 30.9 L MCV 90 MCH 27.7 MCHC 30.7 L RDW 15.0 H Plt Count 716 H MPV 10.3 Immature Gran % 0.6 Neutrophils % 73.0 Lymphocytes % 15.4 Monocytes % 5.5 Eosinophils % 4.3 Basophils % 1.2 Nucleated RBC % 0.0 Absolute Neutrophils 9.07 H Absolute Lymphocytes 1.91 Absolute Monocytes 0.68 Absolute Eosinophils 0.53 Absolute Basophils 0.15 03/03/24 14:33 Foot - Right Anaerobic Culture - Pending 03/03/24 14:33 Foot - Right Anaerobic Culture - Pending Preliminary micro results at discharge 03/03/24 14:33 Surgical Culture - Preliminary Foot - Right 03/03/24 14:50 Surgical Culture - Preliminary Foot - Right 03/03/24 14:33 Anaerobic Culture - Pending Foot - Right 03/03/24 14:33 Anaerobic Culture - Pending Foot - [facility] Active Problems Pressure injury of right foot, stage 1 (Acute) Bhatti catheter problem (Acute) Bilateral femoral artery stenosis (Acute) Acute osteomyelitis of metatarsal bone of right foot (Acute) s/p 3rd and 4th MT Head Resection (02/23/24) Edema (Acute) Advanced care planning/counseling discussion (Acute) Depression (Chronic) 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 of cerebrovascular accident (Acute) Diabetic infection of right foot (Acute) Diabetic ulcer of right heel (Acute) Atherosclerosis of arteries (Acute) Thrombocytosis (Acute) Acute cerebrovascular accident (CVA) (Acute) Type 2 diabetes mellitus (Acute) Vitamin D deficiency (Acute) Spinal stenosis (Acute) Sleep apnea (Acute) Peripheral neuropathy (Acute) Hyperlipidemia (Acute) Hearing loss (Acute) Current non-smoker but past smoking history unknown (Acute) Amputation of right foot (Acute) Diabetic polyneuropathy (Acute) Primary osteoarthritis of left shoulder (Chronic) Tinnitus, bilateral (Acute 05/16/17) Sensorineural hearing loss (SNHL) of both ears (Chronic 05/16/17) Medical History Former smoker Infrarenal abdominal aortic aneurysm (AAA) without rupture Amputation of leg L - 2006 Biceps tendon rupture Hx of fall Change in bowel function Leg weakness Lightheadedness Rotator cuff tear arthropathy of right shoulder Rotator cuff tear arthropathy of left shoulder Impacted cerumen, right ear Infected sebaceous cyst of skin Weight gain Sebaceous cyst (~08/19/19) referral states Right anterior chest Rupture of right distal biceps tendon (~09/2018) Osteomyelitis Foot drop, right Diabetic foot ulcer Ulcer of foot Shoulder pain, left Calf pain Bronchitis Physical deconditioning Insomnia Skin irritation Abdominal pain DNR (do not resuscitate) Myalgia Balance problem B12 deficiency Dysphagia Partial tear of left rotator cuff Most recent injection: 06/30/19 S/P RTC repair by Dr. Jarrett September 2017 MRI from 02/2018 showed full-thickness re-tear supraspinatus and infraspinatus Cellulitis of right toe right 4th toe Impingement syndrome of left shoulder SURGERY 10/09/17 Other synovitis and tenosynovitis, left shoulder SURGERY 10/09/17 Complete rotator cuff tear of left shoulder SURGERY 10/09/17 Discharge planning issues DVT prophylaxis Amputated toe of right foot Acute appendicitis with localized peritonitis Hernia of anterior abdominal wall Surgical History S/P cholecystectomy open History of transmetatarsal amputation of right foot History of left below knee amputation History of colonoscopy H/O esophagogastroduodenoscopy (~06/09/18) History of spinal surgery Status post rotator cuff surgery Rotator Cuff Repair Repair of inguinal hernia Appendectomy (06/11/16) Amputation left below knee amputation Family History Mother CAD (coronary artery disease) Maternal Grandmother Diabetes Social History Smoking/Tobacco Use Status: Former Tobacco Use Quit Date: 02/18/17 Smoking risk assessment performed?: Yes Alcohol Intake: former Drug use: Never Substance use type: does not use Details: Pt states quit smoking 09/2017 Housing: house Current gender identity: male Do you feel safe at home: Yes Do you feel safe in your relationship?: Yes Additional Social history: Grew up outside of [place] in town in [place]. 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 Time Spent with Patient Time Spent with Patient: >85 minutes Time was spent: preparing to see the patient(eg.review tests), obtaining and/or reviewing separately otained hiistory, ordering medications,tests, procedures, referring, communicating with other health home care physical therapist, indepentently interpreting results, counseling the patient and care coordination
[2024-03-04 15:34] VITALS: BP 116/62; PULSE 57; RESP 19; TEMP 36.9; O2SAT 96
--- NOTE | 2024-03-04 16:10 | PDOC.CMPRO ---
Date of service: 03/04/24 Time of Service: 08:45 Care Management Progress Note Progress Note Text Progress Note Text: Eloy was sitting up in the bed when CM met with him today. He was friendly and talkative. He was very pleased to know that [facility] has accepted him, but he will need to wait until a bed is available. He was informed that we can't tell how long that will take, but the facility has accepted him. Eloy expressed that he really wants to keep what he has left of his foot, and is hoping that [facility] isn't going to just chop it off. CM and Eloy discussed that he would not have been accepted to [facility] if that was their plan. The goal is to keep the foot, and hopefully that will happen. CM encouraged Eloy to participate in his treatment and in his rehabilitation. Eloy asked about Power of Greek Professor paperwork. CM informed him that that is a legal document and needs to be handled by a art sales consultant. He plans to contact a art sales consultant for this. Discharge Potential Discharge Needs: Other (transfer to [facility] for vascular studies, wound care, ID and Plastics) Anticipated Barriers to Discharge: Bed availability Patient/Family Education Needs: Review discharge instructions, discuss Ask Me Three Transportation: EMS (as coordinated by the overnight houseperson supervisor [employer]) Plan: Anticipate that Eloy will transfer to [facility] once a bed becomes available for him. He will continue to receive all of his treatments at [facility] until that time. Eloy will transport via EMS as as coordinated by the overnight houseperson supervisor [employer]. CM will continue to follow and update the plan as needed. Social Determinants of Health Screening Social Determinants of Health last assessed: 03/04/24 Will the Patient Participate in the Screening?: Yes Do you worry about having a steady place to live?: no Problems where you live: no known problems In the past 12 months, have you had to go without electric, gas, oil or water in your home?: no Have you or anyone in your house had to go without enough food to eat?: no Has lack of transportation kept you from medical appointments or from doing things needed for daily living?: no Has anyone in your life made you feel unsafe or unsupported?: no How hard is it for you to pay for the very basics like food, housing, medical care, and heating? Would you say it is:: Somewhat hard (concerned about medical bills; has [facility] financial assistance) Do you want help finding or keeping work or a job?: I do not need or want help If for any reason you need help with day-to-day activities such as bathing, preparing meals, shopping, managing finances, etc., do you get the help you need?: I get all the help I need (feels well supported at home) How often do you feel lonely or isolated from those around you?: Sometimes Do you speak a language other than Mongolian at home?: No Does the patient want assistance with any of the above?: No Health Related Social Needs Health related social needs: problems related to housing/economic circumstances (Z59.89) and feeling lonely/isolated (Z60.8)
[2024-03-04] MEDS: metFORMIN 500 MG TAB PO (17:26)
[2024-03-04 19:26] VITALS: BP 112/55; PULSE 59; RESP 18; TEMP 36.8; O2SAT 95
[2024-03-04] MEDS: Sertraline 50 MG TAB PO (20:27)
[2024-03-04] MEDS: Rosuvastatin 20 MG TAB PO (20:27)
[2024-03-04] MEDS: Gabapentin 300 MG CAP 1500 MG PO (20:27)
[2024-03-04] MEDS: Insulin Glargine 300 UNITS/3 ML PEN 51 UNITS SC (21:01)
[2024-03-04] MEDS: Enoxaparin 40 MG/0.4 ML SYR SC (21:01)
[2024-03-04 22:22] VITALS: BP 104/47; PULSE 60; RESP 20; TEMP 36.8; O2SAT 97
[2024-03-04] MEDS: Melatonin 3 MG TAB 9 MG PO (23:02)
[2024-03-05 03:25] VITALS: BP 103/44; PULSE 61; RESP 18; TEMP 36.6; O2SAT 95
[2024-03-05] MEDS: CEFEPIME 2 GM in Normal Saline 100 ML IVPB ×2 (04:27→12:26)
[2024-03-05 08:07] VITALS: BP 101/55; PULSE 60; RESP 18; TEMP 36.4; O2SAT 97
[2024-03-05] MEDS: Gabapentin 300 MG CAP 900 MG PO (08:18)
[2024-03-05] MEDS: Docusate Sodium 100 MG CAP PO (08:20)
[2024-03-05] MEDS: Lisinopril 2.5 MG TAB PO (08:20)
[2024-03-05] MEDS: Pantoprazole 40 MG TABCR PO (08:21)
[2024-03-05] MEDS: Cholecalciferol (Vitamin D3) 1,000 UNIT TAB 2000 UNITS PO (08:21)
[2024-03-05] MEDS: Aspirin 81 MG CHEW PO (08:22)
[2024-03-05] MEDS: Ezetimibe 10 MG TAB PO (08:22)
[2024-03-05] MEDS: Clopidogrel 75 MG TAB PO (08:22)
[2024-03-05] MEDS: Insulin Aspart 300 UNITS/3 ML PEN 6 UNITS SC ×2 (08:23→11:48)
[2024-03-05] MEDS: Nystatin POWDER 60 GM JAR TP ×2 (08:28→13:26)
[2024-03-05] MEDS: Nystatin OINT 15 GM TUBE TP (08:29)
[2024-03-05] MEDS: Normal Saline Flush 10 ML SYR IVP ×3 (08:30→13:21)
--- NOTE | 2024-03-05 09:37 | PDOC.CMPRO ---
Date of service: 03/05/24 Time of Service: 09:37 Care Management Progress Note Discharge Potential Discharge Needs: PCP F/U Appt and Surgical F/U Appt Anticipated Barriers to Discharge: Bed availability Patient/Family Education Needs: Review discharge instructions, discuss Ask Me Three Transportation: EMS Plan: Eloy has been accepted in transfer to [facility] and is awaiting a bed. He will follow up with facility providers and plan of care and transport via EMS coordinated by the nursing marble supervisor. CM will follow and continue to support discharge planning. Social Determinants of Health Screening Social Determinants of Health last assessed: 03/05/24 Will the Patient Participate in the Screening?: Yes Do you worry about having a steady place to live?: no Problems where you live: no known problems In the past 12 months, have you had to go without electric, gas, oil or water in your home?: no Have you or anyone in your house had to go without enough food to eat?: no Has lack of transportation kept you from medical appointments or from doing things needed for daily living?: no Has anyone in your life made you feel unsafe or unsupported?: no How hard is it for you to pay for the very basics like food, housing, medical care, and heating? Would you say it is:: Somewhat hard (concerned about medical bills; has [facility] financial assistance) Do you want help finding or keeping work or a job?: I do not need or want help If for any reason you need help with day-to-day activities such as bathing, preparing meals, shopping, managing finances, etc., do you get the help you need?: I get all the help I need (feels well supported at home) How often do you feel lonely or isolated from those around you?: Sometimes Do you speak a language other than [place] at home?: No Does the patient want assistance with any of the above?: No Health Related Social Needs Health related social needs: problems related to housing/economic circumstances (Z59.89) and feeling lonely/isolated (Z60.8)
[2024-03-05] MEDS: Insulin Aspart 300 UNITS/3 ML PEN SC (11:48)
[2024-03-05 11:52] VITALS: BP 110/64; PULSE 68; RESP 18; TEMP 36.3; O2SAT 95
--- NOTE | 2024-03-05 13:17 | TELEFU_ITS ---
Date of service: 03/05/24 Time of Service: 13:17 Nutrition Note NOTE: follow up with pt. He is no longer accepting the Jarad supplement drink to support wound healing. Glucose control boost sent TID to room - inconsistent intake of these. Glucose still mostly running higher than acceptable targets. 191 at lunch today. last fasting was 106 on 02/28 however has been higher at 161 or above at all other days this admission. Pt awaiting transfer to [facility] for treatment of osteomyelitis of right foot - hoping to save this limb from amputation. Pt eating 100% at meals consistently. Pt denies education needs at this time regarding glucose control. will continue to follow Time Spent in Nutritional Counseling and Treatment: 5 min
--- NOTE | 2024-03-05 14:56 | PDOC.CMDIS ---
Date of service: 03/05/24 Time of Service: 14:57 LACE Index Scoring Tool Questions: Length of Stay (in days): 14 or more Was the patient admitted via the E.D.?: Yes Comorbidities: Cerebrovascular Disease, PVD and Diabetes w/o Complication E.D. Visits: 3 Answers: Total Score: 16 Risk of Readmission: High Risk Care Management Discharge Plan Reason for Hospitalization: osteomyelitis of right foot Discharge Plan: Bear is being transferred to [facility] to be evaluated by Vascular surgery. He will transport via EMS coordinated by the nursing supervisor laboratory animal facility and will follow up with the facility providers and plan of care. Patient/Family Education Needs: Expectations, limitations, follow up plan Services Needed at Discharge: Transportation SDOH Health Related Social Needs: Health related social needs problems related to housing/economic circumstances (Z59.89), feeling lonely/isolated (Z60.8)
== END 2024-03-05 14:14 | disposition short-term general hospital (02) | DRG 622 ==
LOC: ER 17:07 → MS 17:43
PROVIDERS: Family Medicine; Hospitalist; Podiatrist; Student in an Organized Health Care Education/Training Program; Admitting Provider Family Medicine; Emergency Provider Emergency Medicine; PCP Family Medicine; Visit Provider Family Medicine
PROC: 2W1SX6Z Compression of Right Foot using Pressure Dressing (ICD-10-PCS; CPT 28140; principal; 2024-02-23 07:20)
PROC: 0JQQ0ZZ Repair Right Foot Subcutaneous Tissue and Fascia, Open Approach (ICD-10-PCS; CPT 13160; principal; 2024-02-25 15:15)
PROC: 0JBQ0ZZ Excision of Right Foot Subcutaneous Tissue and Fascia, Open Approach (ICD-10-PCS; CPT 11042; principal; 2024-03-03 14:00)
DX: E11.69 Type 2 diabetes mellitus with other specified complication (principal); L89.613 Pressure ulcer of right heel, stage 3; B37.89 Other sites of candidiasis; L03.115 Cellulitis of right lower limb; I69.354 Hemiplegia and hemiparesis following cerebral infarction affecting left non-dominant side; M86.171 Other acute osteomyelitis, right ankle and foot; L97.416 Non-pressure chronic ulcer of right heel and midfoot with bone involvement without evidence of necrosis; Z16.23 Resistance to quinolones and fluoroquinolones; Z16.29 Resistance to other single specified antibiotic; Z16.11 Resistance to penicillins; E11.42 Type 2 diabetes mellitus with diabetic polyneuropathy; E11.628 Type 2 diabetes mellitus with other skin complications; Z79.4 Long term (current) use of insulin; F32.A Depression, unspecified; D75.839 Thrombocytosis, unspecified; I71.43 Infrarenal abdominal aortic aneurysm, without rupture; E11.621 Type 2 diabetes mellitus with foot ulcer; I70.203 Unspecified atherosclerosis of native arteries of extremities, bilateral legs; T83.031A Leakage of indwelling urethral catheter, initial encounter; Z89.512 Acquired absence of left leg below knee; Z66 Do not resuscitate; Z87.891 Personal history of nicotine dependence; E55.9 Vitamin D deficiency, unspecified; H90.3 Sensorineural hearing loss, bilateral; E78.5 Hyperlipidemia, unspecified; Z86.14 Personal history of Methicillin resistant Staphylococcus aureus infection; R60.0 Localized edema; B95.7 Other staphylococcus as the cause of diseases classified elsewhere; B96.89 Other specified bacterial agents as the cause of diseases classified elsewhere; L89.891 Pressure ulcer of other site, stage 1
CPT/HCPCS: 36410; 28140 ×2; 11042 ×3; 11045 ×2; 13160; 00123; 11402; 36415; 75635; 80048; 80053; 85027; 85652; 87040; 87077; 96365; 97110; 97162; 97530; 99222; 99223; 99233; 99285; J1650; 73630; 73720; 80202; 81003; 81015; 82565; 83735; 83880; 85025; 86140; 87070; 87075; 87086; 87186; 87205; 88304; 88312; 93971; 99231; 99232; 99239; J0131; J0665; J0692; J1100; J1171; J1815; J1885; J2003; J2250; J2270; J2371; J2405; J2704; J3370; J3372; J3490; Q9967

== ENCOUNTER → 2024-02-25 07:40 | Outpatient (BNVA) | payer MEDICARE, SELFPAY | PROVIDERS: PCP Family Medicine; Referring Provider Family Medicine; Visit Provider Urology ==